=== PATIENT | female | born 1955 | race Caucasian/White ===

== ENCOUNTER 2020-12-29 09:46 | Day surgery (SDC) | payer MEDICARE, MEDICAID, SELFPAY ==
--- NOTE | 2020-12-28 11:58 | HO.ANESPROP2 ---
Documented by User: Safia Rosado 12/28/20 12:00 HPI - Anesthesia Eval Consult details Narrative: 65yo F for Colonoscopy PMFSH Active Problems Active Problems: All Active Problems (Updated 11/13/20 @ 09:36 by Adrianna Richter MD) Dyslipidemia (Acute) Foot pain, bilateral (Acute) Dizziness (Acute) History of vitamin D deficiency (Acute) HTN (hypertension) (Acute) Chronic pain (Acute) Constipation (Acute) Depression (Acute) Back pain (Acute) Asthma (Acute) Lumbar degenerative disc disease (Acute) Past Medical History Medical History Arthritis Asthma Back pain Breast cancer Chronic pain Constipation Depression Dizziness Dyslipidemia Foot pain, bilateral History of left bundle branch block (LBBB) History of pernicious anemia History of trigger finger History of vitamin D deficiency HTN (hypertension) Lumbar degenerative disc disease Mild aortic stenosis On beta mel at home Sleep apnea Tinnitus Family History Family History Father Prostate cancer Hypertension Mother Skin cancer Dementia Diabetes Daughter Lupus Maternal Grandmother Diabetes Hypertension Maternal Grandfather No problems noted. Paternal Grandmother No problems noted. Paternal Grandfather Cancer Brother Prostate cancer Surgical History Surgical History History of dilation and curettage History of lymph node dissection of left axilla History of total left knee replacement (TKR) History of total right knee replacement (TKR) Hx of bilateral cataract extraction Hx of colonoscopy Hx of esophagogastroduodenoscopy S/P lumpectomy, left breast Social History Social History Alcohol intake: current Alcohol intake frequency: does not drink Smoking Status: Never smoker Use of substances other than those prescribed or required for medical reasons: Yes Substance Use Type Other:: marijuana Advance Directives: No Advance Directives Information Provided: Yes Meds Allergies Allergy/AdvReac Type Severity Reaction Status Date / Time latex [LATEX] Allergy Intermediate RASH Verified 11/13/20 09:28 Home Medications Medication Instructions Recorded Confirmed Last Taken Type meclizine 25 mg PO DAILY PRN 08/02/20 11/13/20 Unknown History meloxicam 15 mg PO DAILY 08/02/20 11/13/20 Unknown History Exam Exam Date and Time: December 28, 2020 1158 Assessment and Plan Assessment Anesthesia Assessment: Chart Reviewed Documented by User: Patricia Hayes 12/29/20 11:20 [facility] Past Medical History Medical History Arthritis Asthma Back pain Breast cancer Chronic pain Constipation Depression Dizziness Dyslipidemia Foot pain, bilateral History of left bundle branch block (LBBB) History of pernicious anemia History of trigger finger History of vitamin D deficiency HTN (hypertension) Lumbar degenerative disc disease Mild aortic stenosis On beta mel at home Sleep apnea Tinnitus Family History Family History Father Prostate cancer Hypertension Mother Skin cancer Dementia Diabetes Daughter Lupus Maternal Grandmother Diabetes Hypertension Maternal Grandfather No problems noted. Paternal Grandmother No problems noted. Paternal Grandfather Cancer Brother Prostate cancer Surgical History Surgical History History of dilation and curettage History of lymph node dissection of left axilla History of total left knee replacement (TKR) History of total right knee replacement (TKR) Hx of bilateral cataract extraction Hx of colonoscopy Hx of esophagogastroduodenoscopy S/P lumpectomy, left breast Social History Social History Alcohol intake: current Alcohol intake frequency: does not drink Smoking Status: Never smoker Use of substances other than those prescribed or required for medical reasons: Yes Substance Use Type Other:: marijuana Advance Directives: No Advance Directives Information Provided: Yes Meds Allergies Allergy/AdvReac Type Severity Reaction Status Date / Time latex [LATEX] Allergy Intermediate RASH Verified 11/13/20 09:28 Home Medications Medication Instructions Recorded Confirmed Last Taken Type meclizine 25 mg PO DAILY PRN 08/02/20 11/13/20 Unknown History meloxicam 15 mg PO DAILY 08/02/20 11/13/20 Unknown History Exam Airway Mallampati Class: III TM Dist: >3cm Neck ROM: Full
[2020-12-29 10:10] VITALS: BP 129/79; PULSE 84; RESP 17; TEMP 36.4; O2SAT 96; BMI 39.2
[2020-12-29] MEDS: Lactated Ringers 1,000 ML 100 ML IVCONT (10:32)
--- NOTE | 2020-12-29 11:43 | W.PM.OPN ---
Operative Note Operative Note Date of Service: 12/29/20 Narrative: Pre-op diagnosis: Colon cancer screening Post-op diagnosis: other (Colon polyps, diverticulosis) Procedure: COLONOSCOPY TILL CECUM WITH SNARE POLYPECTOMY Consent: Indications for the procedure and potential complications of bleeding, perforation, reaction to medications and missed diagnosis were discussed with the patient and informed consent was obtained. Instrument: Olympus PCF H 190 L variable stiffness pediatric colonoscope Monitoring: Vital signs and clinical assessment, intermittent blood pressure monitoring, continuous EKG monitoring, Pulse oximetry and Carbon Dioxide monitoring were done throughout the procedure. Colon withdrawl time was 15 minutes. Procedure: The patient was placed in the left lateral decubitis position and pre-procedure medications were administered. After a digital rectal examination of the ano-rectum, the video colonoscope was inserted into the rectum and advanced through the colon to the cecum. The colonoscope was slowly withdrawn in a retrograde panoramic fashion and the colon mucosa was carefully examined including a retroflexed view of the rectum. Findings and interventions are described below. Procedure Difficulty: Colon was long and tortuous and there was some loop formation. LLQ pressure was applied to intubate the cecum Findings: Terminal Ileum: Not evaluated Cecum: Normal Ascending Colon: Normal Transverse Colon: Normal Descending Colon: Moderate diverticulosis Sigmoid Colon: Two 8-10 mm sessile polyps removed with a cold snare. Moderate diverticulosis Rectum: Normal Ano-rectum: Normal Colon preparation: Good Impression and Post Procedure Diagnosis: Colonoscopy Findings: Two medium sized polyps removed Moderate diverticulosis seen in the left colon Plan: Await pathology results Patient has an appointment on 01/05/21 in the GI Clinic with Elissa Hughes NP . Repeat Colonoscopy interval based on path results - in 3 years if polyps are adenomatous and 10 years if polyps are hyperplastic. Above findings were reviewed with the patient and colon polyps and diverticulosis handouts were given in the discharge area Surgeon: Nazario Sahni MD Anesthesia: MAC (Mukund Gallardo CRNA) Estimated blood loss (mL): 0 Pathology: other (A. SC polyp x 2) Disposition: PACU
--- NOTE | 2020-12-29 11:43 | MHC.SHP ---
Pre-Procedural Eval Section A The patient is an INPATIENT: No The History & Physical has been completed within 30 days and I have reviewed it.: No Section B Chief Complaint: screening Relevant Family History (Specify if Yes): No Relevant Social History: None Present Medications: see Short Stay Collaborative assessment Medical History: Significant History (breast CA; diagnosed 2012; s/p chemotherapy + XRT. Hypertension. Asthma. Depression. B-12 deficiency. vitamin D insufficency. ) History of Previous Operations: Relevant previous surgery/procedure and date(s) (left breast FNA biopsy 11/26/2012 breast lumpectomy 2012 Left breast lumpectomy plus axillary lymph node resection 06/2013 hysterectomy &C TKA left 11/28/14 Total right knee arthroplasty 09/22/2017 colonoscopy-Cade cataract-lens implants R retinal surgery R ) Allergies: Allergies Allergy/AdvReac Type Severity Reaction Status Date / Time latex [LATEX] Allergy Intermediate RASH Verified 11/13/20 09:28 Review of Systems Sugical H&P ROS: Negative: Constitution, Cardiovascular, Respiratory and Gastrointestinal Exam Surgical H&P Exam: Normal: Heart, Normal: Lungs, Normal: Extremities and Normal: Abdomen Plan Diagnosis/Plan: Unchanged I have reviewed the history and physical and performed a pertinent physical examination on my patient. No changes have occurred unless specified.
[2020-12-29 12:35] VITALS: BP 93/42; PULSE 100; RESP 16; TEMP 36.6; O2SAT 98
[2020-12-29 12:50] VITALS: BP 127/65; PULSE 83; RESP 16; TEMP 36.6; O2SAT 96
== END 2020-12-29 14:20 | disposition home or self-care (01) ==
PROVIDERS: PCP Internal Medicine; Visit Provider Internal Medicine Gastroenterology
PROC: 0DJD8ZZ Inspection of Lower Intestinal Tract, Via Natural or Artificial Opening Endoscopic (ICD-10-PCS; CPT 45378; principal; 2020-12-29 10:50)
DX: Z12.11 Encounter for screening for malignant neoplasm of colon (principal); D12.5 Benign neoplasm of sigmoid colon; K57.30 Diverticulosis of large intestine without perforation or abscess without bleeding; C50.912 Malignant neoplasm of unspecified site of left female breast; J45.909 Unspecified asthma, uncomplicated; I10 Essential (primary) hypertension; E55.9 Vitamin D deficiency, unspecified; E53.8 Deficiency of other specified B group vitamins; G47.30 Sleep apnea, unspecified; Z92.21 Personal history of antineoplastic chemotherapy; Z79.811 Long term (current) use of aromatase inhibitors; Z79.899 Other long term (current) drug therapy; Z92.3 Personal history of irradiation; Z91.040 Latex allergy status
CPT/HCPCS: 45385; 88305

== ENCOUNTER 2021-01-12 12:09 | Emergency (ER) | payer MEDICARE, MEDICAID, SELFPAY ==
--- NOTE | ~2021-01-12 | CT_ITS ---
EXAMINATION: CT ABDOMEN AND PELVIS WITH CONTRAST CLINICAL INFORMATION: Right flank pain. COMPARISON: CTA chest 01/12/2021, CT abdomen noncontrast 09/18/2008 TECHNIQUE: Multidetector volumetric images were obtained from the superior aspect of the liver through the pubic symphysis following administration 75 mL of Omnipaque 350 intravenous contrast. Sagittal and coronal reformatted images were obtained on the technologist's workstation. Oral contrast: No This CT examination was performed using dose optimization techniques as appropriate, variously including the following: *Automated exposure control *Adjustment of mA and/or kV according to patient size (this includes techniques or standardized protocols for targeted exams where dose is matched to indication/reason for exam; i.e. extremities or head) *Use of iterative reconstruction technique DLP: 738 mGy-cm FINDINGS: LUNG BASES: No infiltrate or effusion. CTA chest described in separate report. LIVER, GALLBLADDER, AND BILIARY TREE: Liver is normal in size and smooth in contour. There is borderline hepatic steatosis. No focal hepatic parenchymal lesion or intrahepatic ductal dilatation. The gallbladder is distended to 4.2 cm in diameter. There is no visible stone or dependent sludge or wall thickening. No pericholecystic fluid. The common duct is unremarkable. PANCREAS: Unremarkable. SPLEEN: Unremarkable. ADRENAL GLANDS: Unremarkable. KIDNEYS AND URETERS: The kidneys enhance symmetrically and are normal in size and smooth in contour. There is no hydronephrosis, hydroureter, perinephric stranding, or visible calculi on this postcontrast exam. There is a 2 cm cyst upper pole left kidney (9 HU). Probable punctate cyst medial left upper pole under 5 mm too small to characterize. BLADDER: Unremarkable. GASTROINTESTINAL TRACT: No bowel obstruction or inflammatory changes in the bowel or mesentery. There is no ascites or fluid collection. The appendix is not identified with certainty. There are no inflammatory changes involving the terminal ileum or around the cecum. ABDOMINAL WALL: Small fat-containing umbilical hernia under 3 cm. LYMPH NODES: There are 3 small mesenteric nodes grouped right lower quadrant inferior medial to cecum, largest only 0.6 cm short axis. There is no retroperitoneal or pelvic adenopathy. VASCULAR: Unremarkable. PELVIC VISCERA: Neutral uterus with mild retroflexion. No adnexal mass or pelvic ascites. OSSEOUS STRUCTURES: Unremarkable. CT/CT abdomen pelvis w con IMPRESSION: 1. Distended gallbladder, 4.2 cm diameter. No visible stone, wall thickening, pericholecystic fluid, or ductal dilatation. Normal pancreas. 2. No hydronephrosis, hydroureter, or perinephric stranding. 3. A few small mesenteric nodes inferior medial to cecum. Findings of doubtful significance. Mild mesenteric adenitis may have similar appearance. No bowel wall thickening or inflammatory changes or obstruction.
--- NOTE | ~2021-01-12 | CT_ITS ---
EXAMINATION: CT ANGIOGRAM OF THE CHEST WITH AND WITHOUT CONTRAST (CT PULMONARY ANGIOGRAM FOR PE) CLINICAL INFORMATION: Reason for Exam Right pleuritic chest pain rule out PE COMPARISON: Chest radiograph 02/13/2029 TECHNIQUE: Prior to contrast administration, noncontrast localization images were obtained. Subsequently, multidetector volumetric imaging was performed from the thoracic inlet to below the diaphragms following the administration of 75 mL Omnipaque 350 intravenous contrast. Sagittal, coronal, and MIP oblique sagittal reformatted images were obtained on the CT workstation, uploaded to PACS, and reviewed. This CT examination was performed using dose optimization techniques as appropriate, variously including the following: *Automated exposure control *Adjustment of mA and/or kV according to patient size (this includes techniques or standardized protocols for targeted exams where dose is matched to indication/reason for exam; i.e. extremities or head) *Use of iterative reconstruction technique Total exam dose-length product 350 mGy-cm FINDINGS: QUALITY OF STUDY/CONTRAST BOLUS: Satisfactory. PULMONARY ARTERIES: No central or segmental pulmonary emboli. THORACIC AORTA: No aneurysm or dissection. LUNG: There is subsegmental disc atelectasis right anterior medial middle lobe. No lobar segmental airspace consolidation. No groundglass opacities. No pneumothorax. PLEURA: No pleural thickening or effusion. MEDIASTINUM: Normal heart size. No pericardial effusion. No hilar or mediastinal lymphadenopathy. No evidence of septal bowing or right heart strain. CHEST WALL/AXILLA: No axillary or internal mammary lymphadenopathy. OSSEOUS STRUCTURES: No acute or suspicious osseous abnormality. UPPER ABDOMEN: Cyst 2 cm upper pole left kidney, 13 HU. No reflux of contrast into the hepatic veins to suggest elevated right heart pressures. CT/CT angio chest PE protocol IMPRESSION: 1. No pulmonary embolism. No thoracic aortic dissection. 2. Subsegmental disc atelectasis right anterior medial middle lobe. 3. No pneumothorax or airspace consolidation. VTE: negative
[2021-01-12 12:15] VITALS: BP 129/55; PULSE 78; RESP 21; TEMP 37.2; O2SAT 97; BMI 39.2
[2021-01-12 12:25] VITALS: BP 144/61; PULSE 76; RESP 15; TEMP 36.9; O2SAT 96
[2021-01-12 12:50] LABS: MANUAL DIFF FLAG NO
[2021-01-12 12:55] LABS: Basophils Percent Auto 0.7 % (0-2); Eosinophils Absolute Auto 0.1 X10*3/uL (0.0-0.4); Eosinophils Percent Auto 2.3 % (0-4); Hematocrit 40.3 % (37-47); Hemoglobin 12.5 g/dl (12.0-16.0); Imm Gran Abs Auto 0.01 X10*3/uL (0.00-0.03); Imm Gran Pct Auto 0.2 % (0.0-0.4); Lymphocytes Absolute Auto 1.8 X10*3/uL (1.2-4.9); Lymphocytes Percent Auto 29.3 % (20-40); Mean Corpuscular Hemoglobin 25.8 pg (27.0-33.0); Mean Corpuscular Volume 83.3 fL (80-98); Mean Platelet Volume 9.3 fL (9.4-12.3); Monocytes Absolute Auto 0.4 X10*3/uL (0.1-1.2); Neutrophils Absolute Auto 3.6 X10*3/uL (2.0-8.3); Neutrophils Percent Auto 60.5 % (45-73); Platelet Count 243 X10*3/uL (160-400); Red Blood Count 4.84 X10*6/uL (4.20-5.50); Red Cell Distribution Width 14.3 % (11.0-16.0)
[2021-01-12 13:11] LABS: Prothrombin Time 11.7 SEC (10.8-13.0)
[2021-01-12 13:14] LABS: Partial Thromboplastin Time 35.2 SEC (24.1-38.0)
[2021-01-12 13:15] LABS: D Dimer < 200 NG/ML
[2021-01-12] MEDS: Ketorolac Tromethamine 30 MG/ML VIAL IVPUSH (13:42)
[2021-01-12 14:14] LABS: Alanine Aminotransferase 16 U/L (0-31); Albumin Level 3.8 g/dL (3.5-5.0); Alkaline Phosphatase 78 U/L (39-117); Anion Gap 16 (12-20); Aspartate Amino Transferase 19 U/L (5-31); Bilirubin Total 0.6 mg/dL (0.0-1.0); Blood Urea Nitrogen 15 mg/dL (9-16); Calcium 8.9 mg/dL (8.4-10.2); Carbon Dioxide 23 mmol/L (22-29); Chloride 106 mmol/L (96-108); Estimated Glomerular Filt Rate > 60; Glucose Random 83 mg/dL (60-115); Lipase 24 U/L (8-78); Potassium 4.1 mmol/L (3.3-5.1); Sodium 141 mmol/L (135-145); Total Protein 6.4 g/dL (6.5-8.0)
[2021-01-12 14:46] VITALS: BP 118/53; PULSE 74; RESP 18; TEMP 37.1; O2SAT 97
[2021-01-12 15:11] LABS: Glucose Urine UA NEG (NEG); Leukocyte Esterase Urine NEG (NEG); Nitrite Urine NEG (NEG); PH 7.5 (5.0-8.0); Specific Gravity - Urine 1.015 (1.005-1.025); Urine Blood NEG (NEG); Urine Ketones NEG (NEG); Urine Protein NEG (NEG-TRACE)
[2021-01-12 15:12] LABS: Appearance Urine HAZY; Color Urine YELLOW
[2021-01-12] MEDS: iohexoL 350 MG/ML 75 ML INFUS..BTL IV (15:25)
[2021-01-12 15:58] VITALS: PULSE 70; RESP 16; TEMP 37.1; O2SAT 96
--- NOTE | 2021-01-12 17:10 | ED.GENADULT ---
HPI - General Adult General Chief complaint: Abdominal Pain Stated complaint: flank pain Time Seen by Provider: 01/12/21 12:25 Source: patient Mode of arrival: EMS Limitations: no limitations History of Present Illness HPI narrative: 65-year-old female who presents emergency department for evaluation of right flank pain. She states the pain came on gradually, approximately 10 days prior. She states the pain is got progressively worse. She points to her right flank area when asked to localize the pain. She describes the pain as a constant, pressure pain which is worse with movement, coughing and breathing. The pain has gotten significantly worse over the past 2 days. She states the pain is 20/10 therefore she called an ambulance and was brought to the emergency department. She denied fever, chills, cough, frequency, urgency or dysuria. She states she is feeling short of breath and does have dyspnea on exertion and she attributes this to the pain. She states that she has never had this type of pain before in the past. Related Data Home Medications Medication Instructions Recorded Confirmed meclizine 25 mg PO DAILY PRN 08/02/20 11/13/20 meloxicam 15 mg PO DAILY 08/02/20 11/13/20 Previous Rx's Medication Instructions Recorded albuterol sulfate 90 mcg/actuation 2 puff INHALATION Q4-6H PRN 30 10/18/20 aerosol inhaler Days #6.7 g metoprolol succinate 25 mg 25 mg PO DAILY 90 Days #90 tab 10/18/20 tablet,extended release 24 hr miscellaneous medical supply #1 ea 11/08/20 miscellaneous medical supply #1 ea 11/08/20 miscellaneous medical supply 1 ea MISCELLANEOUS .COMPLEX #1 11/08/20 miscellaneous medical supply 1 ea MISCELLANEOUS .COMPLEX #1 ea 11/08/20 miscellaneous medical supply 1 ea MISCELLANEOUS .COMPLEX #1 ea 11/08/20 walker #1 ea 11/08/20 atorvastatin 20 mg tablet 20 mg PO DAILY 90 Days #90 tab 11/13/20 calcium carbonate 600 mg calcium 600 mg PO BID 90 Days #180 tab 11/13/20 (1,500 mg) tablet cholecalciferol (vitamin D3) 50 50 mcg PO DAILY #30 tab 11/13/20 mcg (2,000 unit) tablet cyanocobalamin (vitamin B-12) 1,000 mcg PO DAILY #90 tab 11/13/20 1,000 mcg tablet fluoxetine 40 mg capsule 40 mg PO DAILY #90 cap 11/13/20 furosemide 20 mg tablet 20 mg PO DAILY 90 Days #90 tab 11/13/20 albuterol sulfate 2.5 mg INHALATION Q4-6H PRN 30 11/23/20 Days #75 ml albuterol sulfate 2.5 mg INHALATION Q4-6H PRN 30 11/27/20 Days #90 ml albuterol sulfate 90 mcg/actuation 2 inh INHALATION Q4-6H PRN 30 Days 11/27/20 breath activated powder #1 ea inhaler,sensor oxycodone-acetaminophen 7.5 mg-325 1 tab PO Q6H PRN 30 Days #120 tab 01/10/21 mg tablet morphine 15 mg PO Q4-6H PRN #10 tab 01/12/21 ondansetron 4 mg PO Q6-8H PRN #14 tab 01/12/21 Allergies Allergy/AdvReac Type Severity Reaction Status Date / Time latex [LATEX] Allergy Intermediate RASH Verified 11/13/20 09:28 Review of Systems Review of Systems: Yes all other systems are reviewed and are negative [facility] Past Medical History Medical History Arthritis Asthma Back pain Breast cancer Chronic pain Constipation Depression Dizziness Dyslipidemia Foot pain, bilateral History of left bundle branch block (LBBB) History of pernicious anemia History of trigger finger History of vitamin D deficiency HTN (hypertension) Lumbar degenerative disc disease Mild aortic stenosis On beta mel at home Sleep apnea Tinnitus Surgical History History of dilation and curettage History of lymph node dissection of left axilla History of total left knee replacement (TKR) History of total right knee replacement (TKR) Hx of bilateral cataract extraction Hx of colonoscopy Hx of esophagogastroduodenoscopy S/P lumpectomy, left breast Family History Family History Father Prostate cancer Hypertension Mother Skin cancer Dementia Diabetes Daughter Lupus Maternal Grandmother Diabetes Hypertension Maternal Grandfather No problems noted. Paternal Grandmother No problems noted. Paternal Grandfather Cancer Brother Prostate cancer Social History Social History Alcohol intake: never Smoking Status: Never smoker Use of substances other than those prescribed or required for medical reasons: Yes Substance Use Type: Marijuana Substance Use Frequency: Occasionally Advance Directives: Yes Advance Directives Information Provided: No Advance Directives on File: No Physical Exam Vital Signs: Vital Signs: Last Vital Signs Temp 98.8 F 01/12/21 15:58 Pulse 70 01/12/21 15:58 Resp 16 01/12/21 15:58 BP 118/53 L 01/12/21 14:46 Pulse Ox 96 01/12/21 15:58 Body Mass Index 39.2 Const: General: cooperative and in distress moderate (Secondary to right flank pain) Nutritional Appearance: overweight Orientation/consciousness: oriented to person and oriented to place Limitations: no limitations HENMT: Head: Yes normal to inspection, Yes normocephalic and Yes atraumatic Ears: external ears normal General nose exam: Normal external nose present Face and sinus: Yes normal facial exam Mouth: Normal oral and palatal mucosa present Throat: Yes posterior oropharynx normal Eyes: Periorbital: periorbital findings normal Eyelids: Yes eyelids normal Conjunctivae: conjunctivae normal Sclerae: sclerae normal Corneas: corneas normal Pupils: Equal, round and reactive pupils present Direct Ophthalmoscopy: normal light reflex Neck: Neck: Yes full ROM, Yes no lymphadenopathy, Yes no meningeal signs, Yes trachea midline and Yes supple Chest: Chest palpation & inspection: normal inspection of the chest and normal palpation of entire chest wall Resp: Effort & Inspection: normal respiratory effort and able to speak in complete sentences Auscultation: clear to auscultation bilaterally Cardio: Rate: regular rate Rhythm: regular rhythm Heart sounds: S1 normal heart sound present, S2 normal heart sound present and no murmurs GI: Inspection: Yes normal to inspection Palpation (GI): Soft to palpation, Tenderness to palpation present (GI) in the RLQ (Moderate), no guarding, not rigid and No hepatosplenomegaly present : Other: Moderate right CVA tenderness, no rash or lesions noted in the area of tenderness Back/Spine/Pelvis: Cervical Spine: normal cervical lordosis Thoracic/Lumbar Spine: thoracic and lumbar spine normal to inspection Skin: Lesions: no lesions Rashes: no rashes Wounds: no wounds Neuro: General: oriented to person, oriented to place and no meningeal signs Cranial nerves: Yes CN's II-XII intact bilaterally and Yes Equal, round and reactive pupils present Cognition (Neuro): normal cognition Motor exam (neuro): 5/5 motor strength present throughout Extrem: General: Yes normal to inspection and Yes full ROM Psych: Appearance: well kempt Mental Status: mental status grossly normal Speech and movement: Normal speech and movement present Affect: normal affect Attitude: cooperative Thought process: Normal thought process present Thought content: Normal thought content present Course Course Course Narrative: 65-year-old female who presents emergency department for evaluation of 10 days of right sided flank and lower abdominal pain which got worse 2 days prior to evaluation with the pain becoming greater than 10/10. On presentation the patient did appear to be in distress secondary to her pain. The pain is worse with breathing, coughing and movement. She did have right lower quadrant tenderness as well as right-sided CVA tenderness. The differential included but was not limited to right renal colic, pneumonia, PE. I did order laboratory evaluation on the patient and a CT angiogram pulmonary embolism protocol and CT abdomen pelvis with IV contrast. Patient's pain was treated with Toradol 30 mg IV. 1717: Patient's laboratory evaluation revealed a normal CBC. Coag studies were normal including and non elevated D-dimer. CT scan of the chest revealed no large pulmonary embolism or cause for the patient's pain. The CT scan of the abdomen pelvis did reveal distended gallbladder and cecal adenopathy but no clear cause for the patient's pain. The patient did get improvement with the IV Toradol however her pain did come back and she was given morphine 4 mg IV with good effect. At this time I do not have a clear etiology for the patient's pain but I did discuss the possibility of shingles with the patient. The patient was discharged home and advised to take Tylenol and ibuprofen for pain. For pain not controlled by his medications she was given a prescription for morphine. She was also given prescription for Zofran for nausea and vomiting. Mass PAT review revealed 10 prescriptions over a 2 year interval for oxycodone from 2 different providers. Medical Decision Making Lab Data Result diagrams: 01/12/21 12:44 01/12/21 13:46 Labs: Lab Results 01/12/21 01/12/21 01/12/21 Range/Units 10:10 12:43 12:44 WBC 6.0 (4.8-10.8) X10*3/uL RBC 4.84 (4.20-5.50) X10*6/uL Hgb 12.5 (12.0-16.0) g/dl Hct 40.3 (37-47) % MCV 83.3 (80-98) fL MCH 25.8 L (27.0-33.0) pg MCHC 31.0 (31.0-35.0) g/dl RDW 14.3 (11.0-16.0) % Plt Count 243 (160-400) X10*3/uL MPV 9.3 L (9.4-12.3) fL Immature Gran % (Auto) 0.2 (0.0-0.4) % Neut % (Auto) 60.5 (45-73) % Lymph % (Auto) 29.3 (20-40) % [place] % (Auto) 7.0 (2-11) % Eos % (Auto) 2.3 (0-4) % Baso % (Auto) 0.7 (0-2) % Lymph # (Auto) 1.8 (1.2-4.9) X10*3/uL [place] # (Auto) 0.4 (0.1-1.2) X10*3/uL Eos # (Auto) 0.1 (0.0-0.4) X10*3/uL Baso # (Auto) 0.0 (0.0-0.2) X10*3/uL Abs Immat Gran (auto) 0.01 (0.00-0.03) X10*3/uL Absolute Neuts (auto) 3.6 (2.0-8.3) X10*3/uL Absolute Nucleated RBC 0.000 (0.0-0.012) X10*3/uL Nucleated RBC % (auto) 0.0 (0.0-0.2) /100WBC PT 11.7 (10.8-13.0) SEC INR 1.0 (0.9-1.1) APTT 35.2 (24.1-38.0) SEC D-Dimer < 200 NG/ML Sodium (135-145) mmol/L Potassium (3.3-5.1) mmol/L Chloride (96-108) mmol/L Carbon Dioxide (22-29) mmol/L Anion Gap (12-20) BUN (9-16) mg/dL Creatinine (0.5-1.4) mg/dL Estim Creat Clear Calc Estimated GFR Random Glucose (60-115) mg/dL Calcium (8.4-10.2) mg/dL Total Bilirubin (0.0-1.0) mg/dL AST (5-31) U/L ALT (0-31) U/L Alkaline Phosphatase (39-117) U/L Troponin I High Sens (<3.5-17.0) ng/L Total Protein (6.5-8.0) g/dL Albumin (3.5-5.0) g/dL Lipase (8-78) U/L Urine Color Urine Appearance Urine pH (5.0-8.0) Ur Specific [place] (1.005-1.025) Urine Protein (NEG-TRACE) MG/DL Urine Glucose (UA) (NEG) MG/DL Urine Ketones (NEG) MG/DL Urine Blood (NEG) Urine Nitrite (NEG) Ur Leukocyte Esterase (NEG) H. pylori Breath Test Cancelled 01/12/21 01/12/21 01/12/21 Range/Units 12:44 13:46 15:02 WBC (4.8-10.8) X10*3/uL RBC (4.20-5.50) X10*6/uL Hgb (12.0-16.0) g/dl Hct (37-47) % MCV (80-98) fL MCH (27.0-33.0) pg MCHC (31.0-35.0) g/dl RDW (11.0-16.0) % Plt Count (160-400) X10*3/uL MPV (9.4-12.3) fL Immature Gran % (Auto) (0.0-0.4) % Neut % (Auto) (45-73) % Lymph % (Auto) (20-40) % [place] % (Auto) (2-11) % Eos % (Auto) (0-4) % Baso % (Auto) (0-2) % Lymph # (Auto) (1.2-4.9) X10*3/uL [place] # (Auto) (0.1-1.2) X10*3/uL Eos # (Auto) (0.0-0.4) X10*3/uL Baso # (Auto) (0.0-0.2) X10*3/uL Abs Immat Gran (auto) (0.00-0.03) X10*3/uL Absolute Neuts (auto) (2.0-8.3) X10*3/uL Absolute Nucleated RBC (0.0-0.012) X10*3/uL Nucleated RBC % (auto) (0.0-0.2) /100WBC PT (10.8-13.0) SEC INR (0.9-1.1) APTT (24.1-38.0) SEC D-Dimer NG/ML Sodium 141 (135-145) mmol/L Potassium 4.1 (3.3-5.1) mmol/L Chloride 106 (96-108) mmol/L Carbon Dioxide 23 (22-29) mmol/L Anion Gap 16 (12-20) BUN 15 (9-16) mg/dL Creatinine 0.65 (0.5-1.4) mg/dL Estim Creat Clear Calc 81.0 Estimated GFR > 60 Random Glucose 83 (60-115) mg/dL Calcium 8.9 (8.4-10.2) mg/dL Total Bilirubin 0.6 (0.0-1.0) mg/dL AST 19 (5-31) U/L ALT 16 (0-31) U/L Alkaline Phosphatase 78 (39-117) U/L Troponin I High Sens 4.0 (<3.5-17.0) ng/L Total Protein 6.4 L (6.5-8.0) g/dL Albumin 3.8 (3.5-5.0) g/dL Lipase 24 (8-78) U/L Urine Color YELLOW Urine Appearance HAZY Urine pH 7.5 (5.0-8.0) Ur Specific [place] 1.015 (1.005-1.025) Urine Protein NEG (NEG-TRACE) MG/DL Urine Glucose (UA) NEG (NEG) MG/DL Urine Ketones NEG (NEG) MG/DL Urine Blood NEG (NEG) Urine Nitrite NEG (NEG) Ur Leukocyte Esterase NEG (NEG) H. pylori Breath Test Discharge Plan Discharge Clinical Impression: Abdominal pain Qualifiers: Abdominal location: right lower quadrant Qualified Code(s): R10.31 - Right lower quadrant pain Chest pain Qualifiers: Chest pain type: chest pain on breathing Qualified Code(s): R07.1 - Chest pain on breathing Patient Disposition: Home, Self-Care Instructions: Abdominal Pain (ED) Additional Instructions: Your laboratory evaluation and urinalysis were unremarkable. The CT scan of your chest did not reveal an obvious cause for your pain. The CT scan of your abdomen and pelvis did not reveal an obvious cause for your pain. At this time, I do not have a clear cause for your pain, if you developed a rash in the area of the pain then you should be seen by your doctor or return to the emergency department for evaluation for possible shingles. Take ibuprofen 200 mg pills, 3 pills every 6 hours as needed for pain. Take Tylenol (acetaminophen) 500 mg pills, 2 pills every 4 to 6 hours as needed for pain. For pain not relieved by ibuprofen and Tylenol take morphine 15 mg pills, 1 pill every 4-6 hours as needed. This is a narcotic medication and can be addicting. If your concerned about addiction do not get this medication filled or ask the pharmacist for less pills. Take Zofran/ondansetron ODT (oral dissolvable tablet) 4 mg, 1 pill dissolved in your mouth every 6-8 hours as needed for nausea and vomiting. Follow-up with your doctor in 2 days. Please return to the emergency department if your symptoms get worse or if you develop any symptoms that are concerning to you. Prescriptions: New morphine 15 mg tablet 15 mg PO Q4-6H PRN (Reason: pain) Qty: 10 RF: 0 ondansetron 4 mg tablet,disintegrating 4 mg PO Q6-8H PRN (Reason: nausea and vomiting) Qty: 14 RF: 0 No Action albuterol sulfate 90 mcg/actuation HFA aerosol inhaler 2 puff inhalation Q4-6H PRN (Reason: shortness of breath or wheezing) 30 Days Qty: 6.7 RF: 6 metoprolol succinate 25 mg tablet extended release 24 hr 25 mg PO DAILY 90 Days Qty: 90 RF: 3 miscellaneous medical supply Misc 1 ea miscellaneous .COMPLEX Qty: 1 RF: 0 miscellaneous medical supply Misc 1 ea miscellaneous .COMPLEX Qty: 1 RF: 0 (DME) miscellaneous medical supply Misc See Rx Instructions .ROUTE .MEDSUPPLY Qty: 1 RF: 0 miscellaneous medical supply Misc 1 ea miscellaneous .COMPLEX Qty: 1 RF: 0 (DME) miscellaneous medical supply Misc See Rx Instructions .ROUTE .MEDSUPPLY Qty: 1 RF: 0 (DME) Ultra-Light Rollator Misc See Rx Instructions .ROUTE .MEDSUPPLY Qty: 1 RF: 0 albuterol sulfate 2.5 mg /3 mL (0.083 %) solution for nebulization 2.5 mg inhalation Q4-6H PRN (Reason: shortness of breath or wheezing) 30 Days Qty: 75 RF: 6 Proair Digihaler 90 mcg/actuation aero powdr breath act w/sensor 2 inh inhalation Q4-6H PRN (Reason: shortness of breath or wheezing) 30 Days Qty: 1 RF: 6 albuterol sulfate 2.5 mg /3 mL (0.083 %) solution for nebulization 2.5 mg inhalation Q4-6H PRN (Reason: shortness of breath or wheezing) 30 Days Qty: 90 RF: 6 oxycodone-acetaminophen 7.5-325 mg tablet 1 tab PO Q6H PRN (Reason: pain) 30 Days Qty: 120 RF: 0 meloxicam 15 mg Tablet 15 mg PO DAILY RF: 0 meclizine 25 mg Tablet 25 mg PO DAILY PRN (Reason: Dizziness) RF: 0 calcium carbonate [Calcium 600] 600 mg calcium (1,500 mg) tablet 600 mg PO BID 90 Days Qty: 180 RF: 3 atorvastatin 20 mg tablet 20 mg PO DAILY 90 Days Qty: 90 RF: 3 cholecalciferol (vitamin D3) [Vitamin D3] 50 mcg (2,000 unit) tablet 50 mcg PO DAILY Qty: 30 RF: 5 cyanocobalamin (vitamin B-12) [Vitamin B-12] 1,000 mcg tablet 1,000 mcg PO DAILY Qty: 90 RF: 1 fluoxetine 40 mg capsule 40 mg PO DAILY Qty: 90 RF: 1 furosemide 20 mg tablet 20 mg PO DAILY 90 Days Qty: 90 RF: 3
[2021-01-12 17:39] VITALS: RESP 18
[2021-01-12] MEDS: Morphine Sulfate 4 MG/ML CARTRIDGE IVPUSH (17:39)
--- NOTE | 2021-01-14 | ECG_ITS ---
Test Reason : ABDOMINAL PAIN Blood Pressure : / mmHG Vent. Rate : 073 BPM Atrial Rate : 073 BPM P-R Int : 162 ms QRS Dur : 140 ms QT Int : 406 ms P-R-T Axes : 064 013 149 degrees QTc Int : 447 ms Normal sinus rhythm Left bundle branch block Abnormal ECG No significant changes when compared with the previous EKG of 13 february 2019 Referred By: Oleg Beck Electronically Signed By:CHAI PACHECO
== END 2021-01-12 17:42 | disposition home or self-care (01) ==
PROVIDERS: Emergency Provider Emergency Medicine Emergency Medical Services; PCP Internal Medicine
DX: R10.31 Right lower quadrant pain (principal); R07.1 Chest pain on breathing; R59.0 Localized enlarged lymph nodes; K82.8 Other specified diseases of gallbladder; I10 Essential (primary) hypertension; J45.909 Unspecified asthma, uncomplicated; F12.90 Cannabis use, unspecified, uncomplicated; Z85.3 Personal history of malignant neoplasm of breast; Z79.899 Other long term (current) drug therapy
CPT/HCPCS: 36415; 71275; 74177; 80053; 81003; 83690; 84484; 85025; 85379; 85610; 85730; 93005; 96374; 96375; 99284; 99285; J1885; J2270; Q9967

== ENCOUNTER 2021-02-10 10:15 | Emergency (ER) | payer MEDICARE, MEDICAID, SELFPAY ==
--- NOTE | ~2021-02-10 | CT_ITS ---
EXAMINATION: CT ABDOMEN AND PELVIS WITH CONTRAST CLINICAL INFORMATION: Right flank pain COMPARISON: CT dated 01/12/2021 TECHNIQUE: Multidetector volumetric images were obtained from the superior aspect of the liver through the pubic symphysis following administration 85 mL of Omnipaque 350 intravenous contrast. Sagittal and coronal reformatted images were obtained on the technologist's workstation. Oral contrast: No This CT examination was performed using dose optimization techniques as appropriate, variously including the following: *Automated exposure control *Adjustment of mA and/or kV according to patient size (this includes techniques or standardized protocols for targeted exams where dose is matched to indication/reason for exam; i.e. extremities or head) *Use of iterative reconstruction technique DLP: 725 mGy-cm FINDINGS: LUNG BASES: The visualized lung bases are unremarkable. LIVER, GALLBLADDER, AND BILIARY TREE: The liver is normal in size, shape, and attenuation. No focal hepatic lesion or biliary ductal dilatation is present. Gallbladder unremarkable. PANCREAS: Unremarkable. SPLEEN: Unremarkable. ADRENAL GLANDS: Unremarkable. KIDNEYS AND URETERS: The kidneys are normal in size, shape, and attenuation. No hydronephrosis, hydroureter, or calculi seen. Stable 2.0 cm cyst in the upper pole of left kidney. No perinephric stranding. BLADDER: Unremarkable. GASTROINTESTINAL TRACT: The small and large bowel are unremarkable. Duodenal diverticulum emanating from the junction of the second and third portions. The appendix is unremarkable. ABDOMINAL WALL: Small fat-containing umbilical hernia. LYMPH NODES: Normal. VASCULAR: Unremarkable. PELVIC VISCERA: Unremarkable. OSSEOUS STRUCTURES: Unremarkable. CT/CT abdomen pelvis w con IMPRESSION: No acute findings within the abdomen or pelvis to explain the patient's symptomatology.
[2021-02-10 10:29] VITALS: BP 151/72; PULSE 69; PULSE 88; RESP 18; TEMP 36.8; O2SAT 95; BMI 18.7
[2021-02-10] MEDS: diazePAM 5 MG TABLET PO (10:53)
[2021-02-10] MEDS: Lidocaine 4 % Patch ADH..PATCH 1 PATCH TRANSDERMA (10:54)
--- NOTE | 2021-02-10 10:59 | ED.BACK ---
HPI - Back Pain/Injury General Chief Complaint: Back Pain/Injury Stated Complaint: R LOW BACK PAIN,NO INJURY PER EMS Time Seen by Provider: 02/10/21 10:30 Source: EMS Mode of arrival: EMS Limitations: no limitations History of Present Illness HPI Narrative: Mrs. Murray is a 65-year-old female who speaks full Pashto she has past medical history as noted below she presents via EMS from home c c/o continued right lower back pain. The pain approximately started 4 weeks ago since she has been seen in emergency room according to the EMR she has a visit on 01/13/2020 where she had lab work including CTA of the chest/ abdominal pelvis CT scan with IV contrast that did not demonstrate any acute cause of her pain she was subsequently given pain management did okay with this she had a breakthrough pain so she went to the walk-in clinic and drippy was given per taper dose of prednisone which helped a little bit she subsequently had another episode for which she went to [facility] couple days ago states that she was in the waiting room for a long time they did not do much of anything for her and today she continues to have the right lower back pain. She describes the back pain as ache and pain like in the right-sided lower back worsen with movement and palpation improved with immobilization. Sometimes does radiate down to the right posterior thigh region. She denies any lower extremity pain or swelling. No loss of bowel or bladder control. She denies any chest pain, abdominal pain, nausea, vomiting, diarrhea, symptoms. She denies any rash. States she does her usual ADLs but does not recall any specific activity which she over exerted or did any lifting. MD elicited complaint: back pain Pertinent past history: prior back pain Onset (ago): week(s) Timing: intermittent Severity: moderate Similar Symptoms Previously: Yes Quality: aching Location: right lower back Exacerbating factors: movement Relieving factors: immobilization Associated symptoms: denies other symptoms Treatments prior to arrival: prescription analgesics Work related injury: No Related Data Home Medications Medication Instructions Recorded Confirmed meclizine 25 mg PO DAILY PRN 08/02/20 01/19/21 meloxicam 15 mg PO DAILY 08/02/20 01/19/21 ondansetron 4 mg disintegrating mg PO 01/19/21 01/19/21 tablet Previous Rx's Medication Instructions Recorded albuterol sulfate 90 mcg/actuation 2 puff INHALATION Q4-6H PRN 30 10/18/20 aerosol inhaler Days #6.7 g metoprolol succinate 25 mg 25 mg PO DAILY 90 Days #90 tab 10/18/20 tablet,extended release 24 hr miscellaneous medical supply #1 ea 11/08/20 miscellaneous medical supply #1 ea 11/08/20 miscellaneous medical supply 1 ea MISCELLANEOUS .COMPLEX #1 ea 11/08/20 miscellaneous medical supply 1 ea MISCELLANEOUS .COMPLEX #1 ea 11/08/20 miscellaneous medical supply 1 ea MISCELLANEOUS .COMPLEX #1 ea 11/08/20 walker #1 ea 11/08/20 atorvastatin 20 mg tablet 20 mg PO DAILY 90 Days #90 tab 11/13/20 calcium carbonate 600 mg calcium 600 mg PO BID 90 Days #180 tab 11/13/20 (1,500 mg) tablet cholecalciferol (vitamin D3) 50 50 mcg PO DAILY #30 tab 11/13/20 mcg (2,000 unit) tablet cyanocobalamin (vitamin B-12) 1,000 mcg PO DAILY #90 tab 11/13/20 1,000 mcg tablet fluoxetine 40 mg capsule 40 mg PO DAILY #90 cap 11/13/20 furosemide 20 mg tablet 20 mg PO DAILY 90 Days #90 tab 11/13/20 albuterol sulfate 2.5 mg INHALATION Q4-6H PRN 30 11/23/20 Days #75 ml albuterol sulfate 2.5 mg INHALATION Q4-6H PRN 30 11/27/20 Days #90 ml albuterol sulfate 90 mcg/actuation 2 inh INHALATION Q4-6H PRN 30 Days 11/27/20 breath activated powder #1 ea inhaler,sensor oxycodone-acetaminophen 7.5 mg-325 1 tab PO Q6H PRN 30 Days #120 tab 01/10/21 mg tablet morphine 15 mg PO Q4-6H PRN #10 tab 01/12/21 prednisone 20 mg tablet 20 mg PO .COMPLEX #18 tab 02/05/21 baclofen 10 mg tablet 10 mg PO BEDTIME 7 Days #7 tab 02/09/21 diazepam [Valium] 5 mg PO BID PRN #10 tab 02/10/21 lidocaine 1 patch TOPICAL Q24H PRN #15 ea 02/10/21 Allergies Allergy/AdvReac Type Severity Reaction Status Date / Time latex [LATEX] Allergy Intermediate RASH Verified 01/19/21 08:22 Review of Systems Review of Systems: Constitutional: No Weight loss, No Fever, No Chills, No Night Sweats, No Fatigue, No Malaise ENT/Mouth: No Hearing loss, No Ear Pain, No Nasal Congestion, No Sinus Pain, No Hoarseness, No sore throat, No Rhinorrhea, No Swallowing Difficulty Eyes: No Eye Pain, No Swelling, No Redness, No Foreign Body, No Discharge, No Vision Changes Cardiovascular: No Chest Pain, No SOB, No Dyspnea on Exertion, No Orthopnea, No Edema, No Palpitations Respiratory: No Cough, No Sputum, No Wheezing, No Smoke Exposure, No Dyspnea Gastrointestinal: No Nausea, No Vomiting, No Diarrhea, No Constipation, No abdominal Pain, No Hematochezia, No Melena Genitourinary: No Dysuria, No Urinary Frequency, No Hematuria, No Urinary Incontinence, No Urgency, No Flank Pain, No Urinary Flow Changes, No Hesitancy Musculoskeletal: No joint pain, No Myalgias, No Joint Swelling, as noted per HPI Skin: No Skin Lesions, No rash Neuro: No Weakness, No Numbness, No Paresthesias, No Loss of Consciousness, No Dizziness, No Headache Psych: No Social Issues Heme/Lymph: No Bruising, No Bleeding,No Lymphadenopathy Endocrine: No Polyuria, No Polydipsia, No Temperature Intolerance Yes all other systems are reviewed and are negative [facility] Past Medical History Medical History Arthritis Asthma Back pain Breast cancer Chronic pain Constipation Depression Dizziness Dyslipidemia Foot pain, bilateral History of left bundle branch block (LBBB) History of pernicious anemia History of trigger finger History of vitamin D deficiency HTN (hypertension) Lumbar degenerative disc disease Mild aortic stenosis On beta mel at home Sleep apnea Tinnitus Surgical History History of dilation and curettage History of lymph node dissection of left axilla History of total left knee replacement (TKR) History of total right knee replacement (TKR) Hx of bilateral cataract extraction Hx of colonoscopy Hx of esophagogastroduodenoscopy S/P lumpectomy, left breast Family History Family History Father Prostate cancer Hypertension Mother Skin cancer Dementia Diabetes Daughter Lupus Maternal Grandmother Diabetes Hypertension Maternal Grandfather No problems noted. Paternal Grandmother No problems noted. Paternal Grandfather Cancer Brother Prostate cancer Social History Social History Alcohol intake: never Smoking Status: Never smoker Smoked in Last 30 Days: No Use of substances other than those prescribed or required for medical reasons: No Substance Use Type: Marijuana Advance Directives: No Advance Directives Information Provided: No Physical Exam Vital Signs: Vital Signs: Last Vital Signs Temp 98.3 F 02/10/21 10:29 Pulse 69 02/10/21 14:21 Resp 16 02/10/21 14:21 BP 153/82 H 02/10/21 14:21 Pulse Ox 95 02/10/21 10:29 Body Mass Index 18.7 Reviewed Const: Other: Tearful in grimacing General: anxious; No acute distress Nutritional Appearance: average body habitus Orientation/consciousness: patient oriented x3 HENMT: Head: Yes normal to inspection Ears: hearing grossly normal bilaterally Eyes: General: appearance normal, both eyes and all related structures Visual Sierra: normal visual sierra by confrontation Neck: Neck: Yes normal visual inspection, No positive Brudzinski's sign, No positive Kernig's sign and No tender Thyroid: Thyroid normal Chest: Chest palpation & inspection: normal inspection of the chest Resp: Effort & Inspection: normal respiratory effort Auscultation: clear to auscultation bilaterally Cardio: Jugular venous distension: no JVD Rhythm: regular rhythm Heart sounds: S1 normal heart sound present and S2 normal heart sound present GI: Inspection: Yes normal to inspection Palpation (GI): Firmness to palpation present (GI) Percussion: Yes normal to percussion Auscultation: normal bowel sounds Back/Spine/Pelvis: Other: Grimaces and more painful when she sits up and tries to do rotation in the right lower back. No midline pain. Pain over the lumbar paraspinous muscle process. No CVA tenderness palpation. No rash. Pain improved with immobilization positive right leg lift at 35 degrees. Distally neurovascular intact, no edema. Negative Homans. Skin: General skin exam: no rashes or lesions noted Neuro: General: patient oriented x3 Extrem: General: Yes normal to inspection Course Reevaluation(s) Reevaluation #1: Labs without evidence of leukocytosis, electrolytes including magnesium and CPK within normal limits. UA is pending. She felt marginally better after 50 mg of IV Toradol, lidocaine patch and Valium however she states she continues to have the pain. CT of the abdomen pelvis with IV contrast reviewed from 1 month ago nonspecific findings given the continued pain and multiple ED visits will go ahead and repeat the CT scan to assess for acute infectious pathology though my suspicions are low. Risk versus benefits of radiation versus wait and see and follow up reviewed with her. Reevaluation #2: She has been resting comfortably, currently lying in the lateral recumbent position sleeping, at bedside. He is to arouse of abdominal pelvis CT findings reviewed without any acute findings. She reports she does feel better. I will give her short course of Valium for muscle spasm and topical lidocaine she will continue with NSAIDs. Will try lifestyle modifications and home care. Will follow up with primary care doctor and PT. MDM - Back Pain/Injury Medical Records Attestation: I reviewed the patient's medical records. Lab Data Attestation: I reviewed the patient's lab results. Result diagrams: 02/10/21 11:05 02/10/21 11:05 Labs: Lab Results 02/10/21 02/10/21 02/10/21 Range/Units 11:05 11:05 11:05 WBC 9.8 (4.8-10.8) X10*3/uL RBC 5.24 (4.20-5.50) X10*6/uL Hgb 13.5 (12.0-16.0) g/dl Hct 43.2 (37-47) % MCV 82.4 (80-98) fL MCH 25.8 L (27.0-33.0) pg MCHC 31.3 (31.0-35.0) g/dl RDW 14.5 (11.0-16.0) % Plt Count 236 (160-400) X10*3/uL MPV 9.3 L (9.4-12.3) fL Immature Gran % (Auto) 0.3 (0.0-0.4) % Neut % (Auto) 60.3 (45-73) % Lymph % (Auto) 33.1 (20-40) % Reagan % (Auto) 5.1 (2-11) % Eos % (Auto) 0.6 (0-4) % Baso % (Auto) 0.6 (0-2) % Lymph # (Auto) 3.2 (1.2-4.9) X10*3/uL Reagan # (Auto) 0.5 (0.1-1.2) X10*3/uL Eos # (Auto) 0.1 (0.0-0.4) X10*3/uL Baso # (Auto) 0.1 (0.0-0.2) X10*3/uL Abs Immat Gran (auto) 0.03 (0.00-0.03) X10*3/uL Absolute Neuts (auto) 5.9 (2.0-8.3) X10*3/uL Absolute Nucleated RBC 0.000 (0.0-0.012) X10*3/uL Nucleated RBC % (auto) 0.0 (0.0-0.2) /100WBC PT 10.9 (10.8-13.0) SEC INR 0.9 (0.9-1.1) APTT 30.2 (24.1-38.0) SEC Sodium 141 (135-145) mmol/L Potassium 3.9 (3.3-5.1) mmol/L Chloride 102 (96-108) mmol/L Carbon Dioxide 26 (22-29) mmol/L Anion Gap 17 (12-20) BUN 18 H (9-16) mg/dL Creatinine 0.74 (0.5-1.4) mg/dL Estim Creat Clear Calc 49.0 Estimated GFR > 60 Random Glucose 84 (60-115) mg/dL Calcium 10.1 D (8.4-10.2) mg/dL Magnesium 2.2 (1.6-2.6) mg/dL Total Bilirubin 0.7 (0.0-1.0) mg/dL AST 16 (5-31) U/L ALT 18 (0-31) U/L Alkaline Phosphatase 88 (39-117) U/L Total Creatine Kinase 30 (26-140) U/L Total Protein 7.3 (6.5-8.0) g/dL Albumin 4.2 (3.5-5.0) g/dL Imaging Data Abdomen/pelvis CT with IV contrast: Radiologist's impression: [address] [id number] Scan ReportSigned Patient: Marita Murray RMR#: [id number]: 4Acct:[id number]/Sex: 65 / FADM Date: 02/10/21Loc: EDAttending Dr: Ordering Physician: Tyler Morales NP Date of Service: 02/10/21 Procedure(s): CT abdomen pelvis w con Accession Number(s): [id number] cc: Tyler Morales NP~ EXAMINATION: CT ABDOMEN AND PELVIS WITH CONTRAST CLINICAL INFORMATION: Right flank pain COMPARISON: CT dated 01/12/2021 TECHNIQUE: Multidetector volumetric images were obtained from the superior aspect of the liver through the pubic symphysis following administration 85 mL of Omnipaque 350 intravenous contrast. Sagittal and coronal reformatted images were obtained on the technologist's workstation. Oral contrast: No This CT examination was performed using dose optimization techniques as appropriate, variously including the following: *Automated exposure control *Adjustment of mA and/or kV according to patient size (this includes techniques or standardized protocols for targeted exams where dose is matched to indication/reason for exam; i.e. extremities or head) *Use of iterative reconstruction technique DLP: 725 mGy-cm FINDINGS: LUNG BASES: The visualized lung bases are unremarkable. LIVER, GALLBLADDER, AND BILIARY TREE: The liver is normal in size, shape, and attenuation. No focal hepatic lesion or biliary ductal dilatation is present. Gallbladder unremarkable. PANCREAS: Unremarkable. SPLEEN: Unremarkable. ADRENAL GLANDS: Unremarkable. KIDNEYS AND URETERS: The kidneys are normal in size, shape, and attenuation. No hydronephrosis, hydroureter, or calculi seen. Stable 2.0 cm cyst in the upper pole of left kidney. No perinephric stranding. BLADDER: Unremarkable. GASTROINTESTINAL TRACT: The small and large bowel are unremarkable. Duodenal diverticulum emanating from the junction of the second and third portions. The appendix is unremarkable. ABDOMINAL WALL: Small fat-containing umbilical hernia. LYMPH NODES: Normal. VASCULAR: Unremarkable. PELVIC VISCERA: Unremarkable. OSSEOUS STRUCTURES: Unremarkable. CT/CT abdomen pelvis w con IMPRESSION: No acute findings within the abdomen or pelvis to explain the patient's symptomatology. Dictated By:MARÍA ELENA GANDHI MDSigned By:<Electronically signed by MARÍA ELENA GANDHI MD in OV>02/10/21 1431 DD/ 1322TD/TT: Premium Card Cancellation Clerk: JESSICA Discharge Plan Discharge Clinical Impression: Back pain Qualifiers: Back pain location: low back pain Chronicity: chronic Back pain laterality: right Sciatica presence: unspecified whether sciatica present Qualified Code(s): M54.5 - Low back pain Patient Disposition: Home, Self-Care Instructions: Back Pain (ED) Additional Instructions: Your blood work was overall reassuring The repeat CT scan of your abdomen pelvis does not show any acute findings Your pain is most consistent with full muscle/muscle irritation on the right lower side back. Warm compresses Gentle stretching For lidocaine patch Muscle relaxant Good body posture and core body exercises Follow with her primary care doctor Follow-up physical therapy as needed Return if any concerns or symptoms Thank you Prescriptions: New lidocaine 4 % adhesive patch,medicated 1 patch topical Q24H PRN (Reason: pain) Qty: 15 RF: 0 diazepam [Valium] 5 mg tablet 5 mg PO BID PRN (Reason: muscle spasm) Qty: 10 RF: 0 No Action albuterol sulfate 90 mcg/actuation HFA aerosol inhaler 2 puff inhalation Q4-6H PRN (Reason: shortness of breath or wheezing) 30 Days Qty: 6.7 RF: 6 metoprolol succinate 25 mg tablet extended release 24 hr 25 mg PO DAILY 90 Days Qty: 90 RF: 3 miscellaneous medical supply Misc 1 ea miscellaneous .COMPLEX Qty: 1 RF: 0 miscellaneous medical supply Misc 1 ea miscellaneous .COMPLEX Qty: 1 RF: 0 (DME) miscellaneous medical supply Misc See Rx Instructions .ROUTE .MEDSUPPLY Qty: 1 RF: 0 miscellaneous medical supply Misc 1 ea miscellaneous .COMPLEX Qty: 1 RF: 0 (DME) miscellaneous medical supply Misc See Rx Instructions .ROUTE .MEDSUPPLY Qty: 1 RF: 0 (DME) Ultra-Light Rollator Misc See Rx Instructions .ROUTE .MEDSUPPLY Qty: 1 RF: 0 albuterol sulfate 2.5 mg /3 mL (0.083 %) solution for nebulization 2.5 mg inhalation Q4-6H PRN (Reason: shortness of breath or wheezing) 30 Days Qty: 75 RF: 6 Proair Digihaler 90 mcg/actuation aero powdr breath act w/sensor 2 inh inhalation Q4-6H PRN (Reason: shortness of breath or wheezing) 30 Days Qty: 1 RF: 6 albuterol sulfate 2.5 mg /3 mL (0.083 %) solution for nebulization 2.5 mg inhalation Q4-6H PRN (Reason: shortness of breath or wheezing) 30 Days Qty: 90 RF: 6 oxycodone-acetaminophen 7.5-325 mg tablet 1 tab PO Q6H PRN (Reason: pain) 30 Days Qty: 120 RF: 0 prednisone 20 mg tablet 20 mg PO .COMPLEX Qty: 18 RF: 0 baclofen 10 mg tablet 10 mg PO BEDTIME 7 Days Qty: 7 RF: 0 meloxicam 15 mg Tablet 15 mg PO DAILY RF: 0 meclizine 25 mg Tablet 25 mg PO DAILY PRN (Reason: Dizziness) RF: 0 morphine 15 mg tablet 15 mg PO Q4-6H PRN (Reason: pain) Qty: 10 RF: 0 ondansetron 4 mg tablet,disintegrating PO RF: 0 calcium carbonate [Calcium 600] 600 mg calcium (1,500 mg) tablet 600 mg PO BID 90 Days Qty: 180 RF: 3 atorvastatin 20 mg tablet 20 mg PO DAILY 90 Days Qty: 90 RF: 3 cholecalciferol (vitamin D3) [Vitamin D3] 50 mcg (2,000 unit) tablet 50 mcg PO DAILY Qty: 30 RF: 5 cyanocobalamin (vitamin B-12) [Vitamin B-12] 1,000 mcg tablet 1,000 mcg PO DAILY Qty: 90 RF: 1 fluoxetine 40 mg capsule 40 mg PO DAILY Qty: 90 RF: 1 furosemide 20 mg tablet 20 mg PO DAILY 90 Days Qty: 90 RF: 3 Referrals: Adrianna Sharp MD [Primary Care Provider] - 3 days
[2021-02-10] MEDS: Ketorolac Tromethamine 30 MG/ML VIAL 15 MG IVPUSH (11:06)
[2021-02-10 11:11] LABS: MANUAL DIFF FLAG NO
[2021-02-10 11:14] LABS: Basophils Absolute Auto 0.1 X10*3/uL (0.0-0.2); Basophils Percent Auto 0.6 % (0-2); Eosinophils Absolute Auto 0.1 X10*3/uL (0.0-0.4); Eosinophils Percent Auto 0.6 % (0-4); Hematocrit 43.2 % (37-47); Hemoglobin 13.5 g/dl (12.0-16.0); Imm Gran Abs Auto 0.03 X10*3/uL (0.00-0.03); Imm Gran Pct Auto 0.3 % (0.0-0.4); Lymphocytes Absolute Auto 3.2 X10*3/uL (1.2-4.9); Lymphocytes Percent Auto 33.1 % (20-40); Mean Corpuscular HGB Conc 31.3 g/dl (31.0-35.0); Mean Corpuscular Hemoglobin 25.8 pg (27.0-33.0); Mean Corpuscular Volume 82.4 fL (80-98); Mean Platelet Volume 9.3 fL (9.4-12.3); Monocytes Absolute Auto 0.5 X10*3/uL (0.1-1.2); Monocytes Percent Auto 5.1 % (2-11); Neutrophils Absolute Auto 5.9 X10*3/uL (2.0-8.3); Neutrophils Percent Auto 60.3 % (45-73); Platelet Count 236 X10*3/uL (160-400); Red Blood Count 5.24 X10*6/uL (4.20-5.50); Red Cell Distribution Width 14.5 % (11.0-16.0); White Blood Count 9.8 X10*3/uL (4.8-10.8)
[2021-02-10 11:20] LABS: INTERNATIONAL NORM RATIO 0.9 (0.9-1.1); Prothrombin Time 10.9 SEC (10.8-13.0)
[2021-02-10 11:22] LABS: Partial Thromboplastin Time 30.2 SEC (24.1-38.0)
--- NOTE | 2021-02-10 11:27 | PC.NURSE ---
Pt alert and oriented, skin pink, warm, dry. Pt reports RL Back pain x1 month unrelieved by home pain meds. No rash/open areas noted to site.. Labs obtained results pending. Pt sleeping after getting pain meds.
[2021-02-10 12:05] LABS: Alanine Aminotransferase 18 U/L (0-31); Albumin Level 4.2 g/dL (3.5-5.0); Alkaline Phosphatase 88 U/L (39-117); Anion Gap 17 (12-20); Aspartate Amino Transferase 16 U/L (5-31); Bilirubin Total 0.7 mg/dL (0.0-1.0); Blood Urea Nitrogen 18 mg/dL (9-16); Calcium 10.1 mg/dL (8.4-10.2); Carbon Dioxide 26 mmol/L (22-29); Chloride 102 mmol/L (96-108); Estimated Glomerular Filt Rate > 60; Glucose Random 84 mg/dL (60-115); Magnesium 2.2 mg/dL (1.6-2.6); Potassium 3.9 mmol/L (3.3-5.1); Sodium 141 mmol/L (135-145); Total Protein 7.3 g/dL (6.5-8.0)
--- NOTE | 2021-02-10 14:00 | PC.NURSE ---
off unit for CT scan at this time
[2021-02-10] MEDS: iohexoL 350 MG/ML 100 ML INFUS..BTL IV (14:13)
[2021-02-10 14:21] VITALS: BP 153/82; PULSE 69; RESP 16
== END 2021-02-10 15:24 | disposition home or self-care (01) ==
PROVIDERS: Nurse Practitioner Primary Care; Emergency Provider Emergency Medicine; PCP Internal Medicine
DX: M54.5 Low back pain (principal); I10 Essential (primary) hypertension; J45.909 Unspecified asthma, uncomplicated; E78.5 Hyperlipidemia, unspecified; F12.90 Cannabis use, unspecified, uncomplicated; Z85.3 Personal history of malignant neoplasm of breast
CPT/HCPCS: 36415; 74177; 80053; 82550; 83735; 85025; 85610; 85730; 96374; 99284; J1885; Q9967

== ENCOUNTER 2021-02-19 10:05 | Outpatient (REF) | payer MEDICARE, MEDICAID, SELFPAY ==
--- NOTE | ~2021-02-19 | XR_ITS ---
EXAMINATION: XR HIP, RIGHT CLINICAL INFORMATION: Right hip pain COMPARISON: Radiographs right hip 01/21/2017 TECHNIQUE: Two views of the right hip. FINDINGS: There is mild narrowing superior medial hip joint. No erosive change or visible chondrocalcinosis. Soft tissue planes appear normal. The visualized right SI joint and pubis are unremarkable. There is no fracture or dislocation or destructive process. Numerous calcified phleboliths are again noted in the deep pelvis. XR/XR hip RT min 2V IMPRESSION: Superior medial right hip joint narrowing. No erosive change.
== END 2021-02-19 10:06 | disposition home or self-care (01) ==
LOC: HO.XRAY 10:05
PROVIDERS: PCP Internal Medicine; Visit Provider Internal Medicine
DX: M25.551 Pain in right hip (principal)
CPT/HCPCS: 73502

== ENCOUNTER 2021-07-21 15:33 | Outpatient (REF) | payer MEDICARE, MEDICAID, SELFPAY | END 2021-07-21 15:34 | disposition home or self-care (01) | LOC: HO.LNP 15:33 | PROVIDERS: Visit Provider Physician Assistant Medical | DX: R06.2 Wheezing (principal); R30.0 Dysuria; Z20.822 Contact with and (suspected) exposure to COVID-19 | CPT/HCPCS: U0003; U0005 ==

== ENCOUNTER 2022-01-18 10:15 | Outpatient (REF) | payer MEDICARE, MEDICAID, SELFPAY ==
[2022-01-18 10:35] LABS: MANUAL DIFF FLAG NO
[2022-01-18 10:42] LABS: Basophils Absolute Auto 0.1 X10*3/uL (0.0-0.2); Basophils Percent Auto 0.9 % (0-2); Eosinophils Absolute Auto 0.2 X10*3/uL (0.0-0.4); Eosinophils Percent Auto 3.5 % (0-4); Hematocrit 40.3 % (37.0-47.0); Hemoglobin 12.6 g/dl (12.0-16.0); Imm Gran Abs Auto 0.02 X10*3/uL (0.00-0.03); Imm Gran Pct Auto 0.3 % (0.0-0.4); Lymphocytes Absolute Auto 2.3 X10*3/uL (1.2-4.9); Lymphocytes Percent Auto 33.2 % (20-40); Mean Corpuscular HGB Conc 31.3 g/dl (31.0-35.0); Mean Corpuscular Hemoglobin 25.5 pg (27.0-33.0); Mean Corpuscular Volume 81.4 fL (80.0-98.0); Mean Platelet Volume 9.1 fL (9.4-12.3); Monocytes Absolute Auto 0.4 X10*3/uL (0.1-1.2); Monocytes Percent Auto 5.8 % (2-11); Neutrophils Absolute Auto 3.9 x10*3/uL (2.0-8.3); Neutrophils Percent Auto 56.3 % (45-73); Platelet Count 252 X10*3/uL (160-400); Red Blood Count 4.95 X10*6/uL (4.20-5.50); Red Cell Distribution Width 14.9 % (11.0-16.0); White Blood Count 6.8 X10*3/uL (4.8-10.8)
[2022-01-18 11:06] LABS: Alanine Aminotransferase 18 U/L (0-31); Albumin Level 4.1 g/dL (3.5-5.0); Alkaline Phosphatase 84 U/L (39-117); Anion Gap 10 (12-20); Aspartate Amino Transferase 19 U/L (5-31); Blood Urea Nitrogen 16 mg/dL (9-16); Calcium 9.8 mg/dL (8.4-10.2); Carbon Dioxide 29 mmol/L (22-29); Chloride 105 mmol/L (96-108); Cholesterol 180 mg/dL; Estimated Glomerular Filt Rate > 60; Glucose Fasting 95 mg/dL (60-99); HDL Cholesterol 73 mg/dL; Iron 83 mcg/dL (30-160); LDL Cholesterol Calculated 85 mg/dl; Percent Iron Saturation 21 % (15-50); Potassium 4.3 mmol/L (3.3-5.1); Sodium 140 mmol/L (135-145); Total Iron Binding Capacity 403 mcg/dL (228-428); Total Protein 6.9 g/dL (6.5-8.0); Triglycerides 114 mg/dL; Unsaturated Iron Binding 320 ug/dL
[2022-01-18 11:29] LABS: Thyroid Stimulating Hormone 5.35 uIU/mL (0.32-4.0); Vitamin D 25-OH Total 22.8 ng/mL (>30)
[2022-01-18 11:39] LABS: Folate 11.5 ng/mL (> or = 4.0); Vitamin B12 535 pg/mL (200-900)
== END 2022-01-18 10:16 | disposition home or self-care (01) ==
LOC: HO.LAB 10:15
PROVIDERS: PCP Internal Medicine; Visit Provider Internal Medicine
DX: I10 Essential (primary) hypertension (principal); L65.9 Nonscarring hair loss, unspecified; D64.9 Anemia, unspecified; E53.8 Deficiency of other specified B group vitamins; E78.5 Hyperlipidemia, unspecified; E55.9 Vitamin D deficiency, unspecified
CPT/HCPCS: 36415; 80053; 80061; 82306; 82607; 82746; 83540; 84443; 85025

== ENCOUNTER → 2022-04-10 14:01 | Outpatient (REF) | payer MEDICARE, MEDICAID, SELFPAY ==
--- NOTE | 2022-04-10 14:04 | CA_ITS ---
Transthoracic Echocardiogram Patient (Last, First, Middle): Marita Murray R Gender: Female Date of : 1955 Age: 66 Procedure Date: 04/10/2022 Procedure Type: Transthoracic Echocardiogram Location: OP Height: 149.86 cm Weight: 88. kg BSA: 1.82 m2 Heart Rate: bpm BP: 138 / 72 mmHg Buckler And Lacer: ASHLEY Referring MD: Adrianna Richter MD Marine Erector: Prabhakar Segura MD Symptoms: R01.1 - Cardiac murmur, unspecified Study Quality: Technically Difficult/Contrast ECG Rhythm: Sinus Conclusions: - 1. Low normal LV systolic function with LVEF of 50-55% with mild LVH with impaired relaxation filling pattern and elevated filling pressures 2. Mild aortic stenosis 3. Normal RV systolic pressure 4. No gross pericardial effusion Findings Procedure Information Contrast agent, definity, is being given per protocol without apparent complications. Left Ventricle Normal left ventricular cavity size. There is mildly increased left ventricular wall thickness. The left ventricular systolic function is low normal. The visually estimated ejection fraction is between 50-55%. There is paradoxical septal motion consistent with a left bundle branch block. Spectral Doppler is indicative of an impaired relaxation filling pattern. Elevated filling pressures. Right Ventricle The right ventricle was not well visualized. Atria The left atrium is normal in size. Interatrial shunt cannot be excluded. The right atrium is normal in size. Aortic Valve The aortic valve was not well visualized. There is mild aortic valve stenosis. The mean gradient is 9 mmHg. The aortic valve area is 1.72 cm2. There is no aortic valve regurgitation. Mitral Valve There is mild anterior and posterior mitral leaflet thickening. There is trace mitral valve regurgitation. There is no mitral valve stenosis. Pulmonic Valve The pulmonic valve was not well visualized. Tricuspid Valve Likely normal tricuspid valve structure and function. There is trace tricuspid valve regurgitation. The right ventricular systolic pressure is normal. The right ventricular systolic pressure is 23 mmHg. Normal right atrial pressure. There is no evidence of pulmonary hypertension. Great Vessels All visible segments of the aorta are normal in size. The pulmonary artery was not well visualized. Venous The inferior vena cava is normal in size and collapses greater than 50% with inspiration. Pericardium/Pleural There is no evidence of pericardial effusion. Prior Study Comparison No significant change compared to prior study dated: 07/07/2019. Measurements 2D Linear Measurements IVSd: 1.11 0.6-0.9/0.6-1.0 cm LVIDd: 4.26 3.9-5.3/4.2-5.9 cm LVIDd Index: 2.34 2.4-3.2/2.2-3.1 cm/m2 LVIDs: 2.84 2.0-3.6 cm LVPWd: 1.20 0.7-1.1 cm LA Diam: 3.60 2.7-3.8/3.0-4.0 cm LAIDs Index: 1.98 1.5-2.3 cm/m2 LV Mass: 214.54 67-162/88-224 g LV Mass Index: 117.88 43-95/49-115 g/m2 LVOT Diam: 2.00 3.0+(-)1.3 cm 2D Systolic Function EF 4C: 51.90 >55% EF 2C: 51.60 >55% EF BiP: 51.00 >55% Mitral Valve MV Pk E: 0.98 MV PK A: 0.89 MV Decel Time: 217.00 E/A: 1.10 E'Lateral: 7.40 E'Medial: 5.00 E/E' Med: 19.50 E/E' Lat: 13.20 PHT: 63.00 MVA PHT: 3.49 Decel [place]: 4.51 Aortic Valve AoV Pk Erick: 2.06 AoV Mn Erick: 1.36 AoV VTI: 0.46 AoV Pk Grad: 17.00 Aov Mn Grad: 9.00 PRABHJOT Cont.VTI: 1.72 LVOT LVOT Pk Erick: 1.05 LVOT Mn Erick: 0.79 LVOT VTI: 0.25 LVOT Pk Grad: 4.00 LVOT Mn Grad: 3.00 LVOT Diam: 2.00 LVOT Area: 3.14 Diastolic Function MV Pk E: 0.98 MV Pk A: 0.89 E/A: 1.10 E'Medial: 5.00 E/E' Med: 19.50 E' Laterial: 7.40 E/E' Lat: 13.20 Right Ventricle TAPSE (mm): 16.10 TVS' Erick: 8.49 Tricuspid Valve TR Pk Erick: 2.24 TR Pk Grad: 20.00 RA Press: 3.00 RVSP: 23.00 Great Vessels Aorta Sinus of Valsalva: 3.00 2.0-3.5 cm Ao Asc: 3.10 2.1-3.4 cm Ao Arch: 3.30 Updated in Other Vendor System with Status of Final Prabhakar Segura MD electronically signed on 04/11/2022 11:36:09 AM with status of Final
== END ==
LOC: HO.CARD 14:01
PROVIDERS: Visit Provider Internal Medicine
DX: R01.1 Cardiac murmur, unspecified (principal)
CPT/HCPCS: 93306; Q9957

== ENCOUNTER 2022-05-29 13:08 | Outpatient (REF) | payer MEDICARE, MEDICAID, SELFPAY ==
--- NOTE | ~2022-05-29 | MM_ITS ---
EXAMINATION: BONE DENSITOMETRY CLINICAL INDICATION: Asymptomatic menopausal state. COMPARISON: Baseline BD dated 02/02/2015. TECHNIQUE: Using a XPlace DXA System (software version: 13.1) manufactured by [employer], dual-energy x-ray absorptiometry was performed of the lumbar spine and left hip. The images are of good technical quality. Summary results are attached. FINDINGS: AP SPINE L3-L4 (excluding L1 and L2): The data of L1-L4 has been changed to exclude the L1 and L2 vertebral bodies, because degenerative changes at these levels may cause overestimation of lumbar spine density. Current: BMD 1.004 g/cm2, Z-score -0.9, T-score -1.6, osteopenia, 4.4% decrease from baseline (<5% change is not significant). Baseline: BMD 1.050 g/cm2. LEFT FEMUR, NECK: Current: BMD 0.868 g/cm2, Z-score -0.2, T-score -1.2, osteopenia. Baseline: BMD 0.975 g/cm2. LEFT FEMUR, TOTAL: Current: BMD 1.117 g/cm2, Z-score 1.6, T-score 0.9, normal, 1.5% increase from baseline (<5% change is not significant). Baseline: BMD 1.101 g/cm2. IDENTIFIED RISK FACTORS: Menopause, tobacco use (current smoker). HISTORY OF FRACTURE: None listed. MEDICATIONS: Vitamin D. MM/XR DEXA axial skeleton IMPRESSION: 1. DIAGNOSIS: Osteopenia based on the lowest T-score value of -1.6 in the lumbar spine applying World Health Organization criteria. 2. 10-YEAR FRACTURE RISK PREDICTION, FRAX: Major osteoporotic fracture (clinical spine, forearm, hip or shoulder) 4.5%. Hip fracture 0.7%. 3. Treatment Recommendations: NOF guidelines recommend consideration for treatment in postmenopausal women and men age 50 and older presenting with the following: -A hip or vertebral (clinical or morphometric) fracture. -T-score less than or equal to -2.5 at the femoral neck or spine after appropriate evaluation to exclude secondary causes. -Low bone mass at the hip or spine and a 10-year fracture probability by FRAX of greater than or equal to 3% for hip fracture or greater than or equal to 20% for major osteoporotic fracture based on the [place] adapted WHO algorithm. 4. Other Recommendations: All treatment decisions require clinical judgment and consideration of individual patient factors, including patient preferences, comorbidities, previous drug use, risk factors not captured in the FRAX model (e.g. frailty, falls, vitamin D deficiency, increased bone turnover, interval significant decline in bone density) and possible under or overestimation of fracture risk by FRAX. Additional medical evaluation for secondary cause of low bone mineral density may be appropriate. FUTURE SCAN RECOMMENDATION: People with diagnosed cases of osteoporosis or at high risk for fracture should have regular bone mineral density tests. For patients eligible for Medicare, routine testing is allowed once every 2 years. The testing frequency can be increased to one year for patients who have rapidly progressing disease, those who are receiving or discontinuing medical therapy to restore bone mass, or have additional risk factors.
== END 2022-05-29 13:09 | disposition home or self-care (01) ==
LOC: HO.MAMMO 13:08
PROVIDERS: PCP Internal Medicine; Visit Provider Internal Medicine
DX: Z13.820 Encounter for screening for osteoporosis (principal); Z78.0 Asymptomatic menopausal state
CPT/HCPCS: 77080

== ENCOUNTER → 2022-07-02 14:17 | Outpatient (BNVA) | payer MEDICARE, MEDICAID, SELFPAY | PROVIDERS: PCP Internal Medicine; Visit Provider Internal Medicine Pulmonary Disease | DX: J45.30 Mild persistent asthma, uncomplicated (principal); G47.33 Obstructive sleep apnea (adult) (pediatric) | CPT/HCPCS: 99202 ==

== ENCOUNTER 2022-08-04 17:55 | Inpatient (IN) | payer MEDICARE, MEDICAID, SELFPAY ==
--- NOTE | ~2022-08-04 | US_ITS ---
EXAMINATION: US ABDOMEN LIMITED CLINICAL INFORMATION: Epigastric pain. COMPARISON: CT abdomen pelvis earlier today. TECHNIQUE: Real-time imaging of the right upper quadrant viscera. FINDINGS: PANCREAS: The pancreas could not be seen secondary to overlying bowel gas. ABDOMINAL AORTA: The proximal, mid, and distal segments are normal in caliber. INFERIOR VENA CAVA: Visualized portions are normal. LIVER: The liver is normal in size. The liver contour is normal. There is a question of increased liver parenchymal echogenicity suggesting hepatic steatosis. No focal hepatic lesion. There is no intrahepatic biliary duct dilatation seen. GALLBLADDER: The gallbladder is distended with mobile stones and echogenic bile. Diggs's sign is positive with tenderness over the gallbladder . No pericholecystic fluid is seen. COMMON BILE DUCT: Normal in caliber measuring 0.7 cm in diameter. FREE FLUID: None. US/US abdomen complete IMPRESSION: Distended tender gallbladder with mobile gallstones without pericholecystic fluid or significant wall thickening. There is intrahepatic biliary ductal dilatation, similar to that seen on the CT scan.
--- NOTE | ~2022-08-04 | MR_ITS ---
EXAMINATION: MR ABDOMEN WITHOUT CONTRAST CLINICAL INFORMATION: Elevated liver enzymes. COMPARISON: CT abdomen pelvis 08/04/2022 TECHNIQUE: MRI of the abdomen without contrast was obtained using routine sequences. Heavily T2 weighted MRCP sequences were also obtained FINDINGS: Regions of the upper abdomen were excluded from the [id number] limiting evaluation. LUNG BASES: The visualized lung bases are unremarkable. KIDNEYS AND URETERS: Bosniak 1 benign-appearing left renal cyst. GALLBLADDER: Gallbladder is distended with wall thickening and mild pericholecystic inflammatory change with layering sludge or conglomerate tiny stones within the gallbladder. LIVER AND BILIARY TREE: Subtle loss of signal on opposed phase imaging suggesting hepatic steatosis. On the thick sliced T2-weighted sequences there is a suspected filling defect within the distal common duct, 3:4 and 4:11 and 12 raising the suspicion for possible choledocholithiasis however this is not definitively appreciated on MRCP sequences and therefore flow void artifacts remains a differential consideration. Recommend correlation with ERCP. Common bile duct measures 6 mm which is within normal limits of caliber without significant intrahepatic biliary duct dilatation. PANCREAS: Unremarkable SPLEEN: Unremarkable ADRENAL GLANDS: Unremarkable GASTROINTESTINAL TRACT: Duodenal diverticulum. LYMPH NODES: No lymphadenopathy. VASCULAR: Unremarkable ABDOMINAL WALL: Unremarkable. OSSEOUS STRUCTURES: Unremarkable. MR/MR MRCP IMPRESSION: 1. Gallbladder is distended with wall thickening and mild pericholecystic inflammatory change with layering sludge or conglomerate tiny stones within the gallbladder. Findings could reflect acute cholecystitis in the appropriate clinical setting. 2. On the thick sliced T2-weighted sequences there is a suspected filling defect within the distal common duct, raising the suspicion for possible choledocholithiasis however this is not definitively appreciated on MRCP sequences and therefore flow void artifacts remains a differential consideration. Recommend correlation with ERCP. Common bile duct measures 6 mm which is within normal limits of caliber without significant intrahepatic biliary duct dilatation. 3. Subtle loss of signal on opposed phase imaging suggesting hepatic steatosis. The findings and recommendations were discussed with Cristian Robles MD by telephone at 08/07/2022 6:56 PM and it was ascertained that the content and urgency of the report was understood at the time of direct communication. Results were communicated within 1 hour of interpretation of the exam.
--- NOTE | ~2022-08-04 | CT_ITS ---
CT/CT abdomen pelvis w IV con IMPRESSION: Interval development of biliary ductal dilatation. Correlate with LFTs. No obstructing source demonstrated. Further assessment with ERCP or MRCP recommended. Fleischner guidelines were followed. EXAMINATION: CT ABDOMEN AND PELVIS WITH CONTRAST CLINICAL INFORMATION: Pain COMPARISON: 02/10/2021 TECHNIQUE: Multidetector volumetric images were obtained from the superior aspect of the liver through the pubic symphysis following administration 85 mL of Omnipaque 350 intravenous contrast. Sagittal and coronal reformatted images were obtained on the technologist's workstation. Oral contrast: No This CT examination was performed using dose optimization techniques as appropriate, variously including the following: *Automated exposure control *Adjustment of mA and/or kV according to patient size (this includes techniques or standardized protocols for targeted exams where dose is matched to indication/reason for exam; i.e. extremities or head) *Use of iterative reconstruction technique DLP: 960 mGy-cm FINDINGS: LUNG BASES: The visualized lung bases are unremarkable. LIVER, GALLBLADDER, AND BILIARY TREE: The liver is normal in size, shape, and attenuation. No focal hepatic lesion but there is interval development of biliary ductal dilatation intrahepatically extrahepatic. There is a large duodenal diverticulum at the second portion of duodenum. No definite choledocholithiasis is appreciated. Pancreas duct is not dilated. Gallbladder is distended without stones or acute inflammatory changes. PANCREAS: Unremarkable. SPLEEN: Unremarkable. ADRENAL GLANDS: Right adrenal gland normal. Small subcentimeter left adrenal nodule similar to baseline. KIDNEYS AND URETERS: The kidneys are normal in size, shape, and attenuation. No hydronephrosis, hydroureter, or calculi seen. No perinephric stranding. Exophytic left upper pole cyst similar. BLADDER: Unremarkable. GASTROINTESTINAL TRACT: The small and large bowel are unremarkable. The appendix is unremarkable. ABDOMINAL WALL: No significant hernia is appreciated. LYMPH NODES: Normal. VASCULAR: Unremarkable. PELVIC VISCERA: Unremarkable. OSSEOUS STRUCTURES: Unremarkable.
[2022-08-04 18:10] VITALS: BP 128/88; BP 146/54; PULSE 60; RESP 14; TEMP 36.7; O2SAT 96; O2SAT 98; BMI 41.2
[2022-08-04 18:14] VITALS: BP 146/54; PULSE 60; RESP 14; TEMP 36.7; O2SAT 98
--- NOTE | 2022-08-04 18:16 | ECG_ITS ---
Test Reason : ABDOMINAL PAIN Blood Pressure : / mmHG Vent. Rate : 064 BPM Atrial Rate : 064 BPM P-R Int : 166 ms QRS Dur : 140 ms QT Int : 416 ms P-R-T Axes : 056 002 172 degrees QTc Int : 429 ms Normal sinus rhythm Left bundle branch block Abnormal ECG When compared with ECG of 12-JAN-2021 12:29, Nonspecific T wave abnormality, worse in Anterior leads Referred By: Reji Cheung Electronically Signed By:JOSSELINE SALAZAR MD
--- NOTE | 2022-08-04 18:40 | ED_ITS ---
HPI - Abdominal Pain General Chief Complaint: Abdominal Pain Stated Complaint: nv Time Seen by Provider: 08/04/22 18:04 Source: patient Mode of arrival: ambulatory Limitations: no limitations History of Present Illness HPI narrative: 66-year-old female female history of asthma high cholesterol, previously the ED for epigastric abdominal pain that began today. Patient states nausea vomiting ever since. Patient described pain as sharp stabbing. Patient denies any chest pain, shortness of breath, fever, or chills. Patient states pain started after eating food. Related Data Home Medications Medication Instructions Recorded Confirmed meclizine 25 mg tablet 25 mg PO DAILY PRN Dizziness 08/02/20 05/20/22 Previous Rx's Medication Instructions Recorded miscellaneous medical supply #1 ea 11/08/20 miscellaneous medical supply #1 ea 11/08/20 miscellaneous medical supply 1 ea miscellaneous .COMPLEX #1 ea 11/08/20 miscellaneous medical supply 1 ea miscellaneous .COMPLEX #1 ea 11/08/20 miscellaneous medical supply 1 ea miscellaneous .COMPLEX #1 ea 11/08/20 walker (Ultra-Light Rollator misc) #1 ea 11/08/20 calcium carbonate 600 mg calcium 600 mg PO BID 90 days #180 tabs 11/13/20 (1,500 mg) tablet (Calcium) baclofen 10 mg tablet 10 mg PO BEDTIME 7 days #7 tabs 02/09/21 albuterol sulfate 90 mcg/actuation 2 inh inhalation Q4-6H PRN 10/05/21 breath activated powder shortness of breath or wheezing 30 inhaler,sensor (Proair Digihaler) days #1 ea metoprolol succinate 25 mg 25 mg PO DAILY 90 days #90 tabs 10/29/21 tablet,extended release 24 hr ondansetron 4 mg disintegrating 4 mg PO BID 30 days #60 tabs 10/29/21 tablet cyanocobalamin (vitamin B-12) 1,000 mcg PO DAILY #90 tabs 11/26/21 1,000 mcg tablet (Vitamin B-12) furosemide 20 mg tablet 20 mg PO DAILY 90 days #90 tabs 11/26/21 Magic Mouthwash 15 ml PO TID #240 mL 12/24/21 Diphen/Lido/Antacid 1:1:1 240 mL suspension albuterol sulfate 2.5 mg/3 mL 2.5 mg (3 mL) inhalation Q6H PRN 01/09/22 (0.083 %) solution for nebulization bronchospasm 30 days #75 mL atorvastatin 20 mg tablet 20 mg PO DAILY 90 days #90 tabs 01/27/22 fluoxetine 20 mg tablet 20 mg PO DAILY 90 days #90 tabs 04/12/22 fluoxetine 40 mg capsule 40 mg PO DAILY #90 caps 04/12/22 nystatin 100,000 unit/gram topical 1 appl topical DAILY 15 days #30 06/18/22 cream grams cholecalciferol (vitamin D3) 50 50 mcg PO DAILY #30 tabs 07/01/22 mcg (2,000 unit) tablet (Vitamin D3) amoxicillin 500 mg tablet 500 mg PO BID 7 days #14 tabs 07/02/22 fluticasone furoate 200 1 inh inhalation DAILY 30 days #1 07/02/22 mcg-vilanterol 25 mcg/dose ea inhalation powder (Breo Ellipta) oxycodone-acetaminophen 10 mg-325 1 tab PO Q6H PRN pain 30 days #120 07/30/22 mg tablet tabs Allergies Allergy/AdvReac Type Severity Reaction Status Date / Time latex [LATEX] Allergy Intermediate RASH Verified 07/02/22 14:23 Review of Systems Review of Systems epigastric pain Yes all other systems are reviewed and are negative [facility] Past Medical History Medical History (Updated 08/04/22 @ 21:45 by REBEKAH Landeros) Arthritis Asthma B12 deficiency Back pain Breast cancer Chronic pain Constipation Depression Dizziness Dyslipidemia Elevated TSH Foot pain, bilateral Hair loss Hair loss History of left bundle branch block (LBBB) History of pernicious anemia History of trigger finger History of vitamin D deficiency HTN (hypertension) Lumbar degenerative disc disease Mild aortic stenosis Mild recurrent major depression Moderate persistent asthma Morbid obesity Murmur On beta mel at home Right hip pain Sleep apnea Tinnitus Surgical History (Updated 05/20/22 @ 19:24 by BARRY Guzman) History of dilation and curettage History of lymph node dissection of left axilla History of total left knee replacement (TKR) History of total right knee replacement (TKR) Hx of bilateral cataract extraction Hx of colonoscopy Hx of esophagogastroduodenoscopy S/P lumpectomy, left breast Family History Family History Father Prostate cancer Hypertension Mother Skin cancer Dementia Diabetes Daughter Lupus Maternal Grandmother Diabetes Hypertension Maternal Grandfather No problems noted. Paternal Grandmother No problems noted. Paternal Grandfather Cancer Brother Prostate cancer Social History Social History Housing: House Alcohol intake: never Patient Tobacco Use Status: Never used Tobacco e-Cigarette/Vaping Use: Never Used Second Hand Smoke Exposure: No Substance Use Type: Marijuana Advance Directives: No Advance Directives Information Provided: No service: No Current occupational status: disabled Physical Exam ED Vital Signs: Vital Signs - 24 hr 08/04/22 18:10 08/04/22 18:14 Temperature 98.1 F 98.1 F Pulse Rate 60 60 Respiratory Rate 14 14 Blood Pressure 146/54 H 146/54 H Pulse Oximetry 98 98 Oxygen Delivery Method Room Air Room Air BMI result Body Mass Index 41.2 Const General: cooperative, healthy appearing, comfortable, no acute distress, well developed, alert, awake and Physically active Orientation/consciousness: patient oriented x3 HENMT Head: Yes normal to inspection, Yes No palpable skull fracture present, Yes normocephalic, Yes atraumatic and No abrasion Eyes General: appearance normal, both eyes and all related structures Neck Neck: Yes normal visual inspection, Yes full ROM, Yes no lymphadenopathy, Yes no meningeal signs, Yes trachea midline, Yes supple, No anterior neck swelling and No tender Chest Chest palpation & inspection: normal inspection of the chest and normal palpation of entire chest wall Resp Effort & Inspection: normal respiratory effort and able to speak in complete sentences Auscultation: clear to auscultation bilaterally Cardio Jugular venous distension: no JVD Heart sounds: S1 normal heart sound present and S2 normal heart sound present GI Inspection: Yes normal to inspection and No abdominal wall ecchymosis Palpation (GI): Soft to palpation, not firm, Tenderness to palpation present (GI) in the epigastrum, no guarding and not rigid General: No CVA tenderness and Yes no CVA tenderness Back/Spine/Pelvis Back: no CVA tenderness, No CVA tenderness and No back tenderness Skin General skin exam: no rashes or lesions noted and elasticity normal Neuro General: patient oriented x3, gait normal, tone normal, no meningeal signs and CN's II-XI intact bilaterally Cranial nerves: Yes CN's II-XII intact bilaterally Extrem General: Yes normal to inspection and Yes full ROM Psych Appearance: grossly normal, well kempt and not disheveled Course Course Course Narrative: Due to each patient had EKG and troponin ordered rest of labs will be ordered morphine Pepcid and viscous lidocaine ordered. Patient may need imaging and EKG troponin negative. Reevaluation(s) Reevaluation #1: Patient elevated liver enzymes. Lipase normal. CT scan shows distended gallbladder with biliary duct dilatation recommend ERCP. Patient is sent for ultrasound. Case signed out to REBEKAH [place]. Dr. Flood of General surgery made aware. He recommends no ultrasound and states patient should be admitted for ERCP Time: 21:41 MDM - Abdominal Pain MDM Narrative Medical decision making narrative: Biliary colic Lab Data Result diagrams: 08/04/22 18:49 08/04/22 18:50 Labs: Lab Results 08/04/22 08/04/22 08/04/22 Range/Units 18:49 18:49 18:49 WBC 11.0 H (4.8-10.8) X10*3/uL RBC 4.86 (4.20-5.50) X10*6/uL Hgb 12.0 (12.0-16.0) g/dl Hct 38.4 (37.0-47.0) % MCV 79.0 L (80.0-98.0) fL MCH 24.7 L (27.0-33.0) pg MCHC 31.3 (31.0-35.0) g/dl RDW 15.1 (11.0-16.0) % Plt Count 363 D (160-400) X10*3/uL MPV 9.5 (9.4-12.3) fL Immature Gran % (Auto) 0.9 H (0.0-0.4) % Neut % (Auto) 86.2 H (45-73) % Lymph % (Auto) 8.0 L (20-40) % Humphreys % (Auto) 4.3 (2-11) % Eos % (Auto) 0.1 (0-4) % Baso % (Auto) 0.5 (0-2) % Lymph # (Auto) 0.9 L (1.2-4.9) X10*3/uL Humphreys # (Auto) 0.5 (0.1-1.2) X10*3/uL Eos # (Auto) 0.0 (0.0-0.4) X10*3/uL Baso # (Auto) 0.1 (0.0-0.2) X10*3/uL Abs Immat Gran (auto) 0.10 H (0.00-0.03) X10*3/uL Absolute Neuts (auto) 9.5 H (2.0-8.3) x10*3/uL Absolute Nucleated RBC 0.000 (0.0-0.012) X10*3/uL Nucleated RBC % (auto) 0.0 (0.0-0.2) /100WBC PT 11.4 (10.0-13.1) SEC INR 1.0 (0.9-1.1) APTT 25.6 L (26.0-36.4) SEC Sodium (135-145) mmol/L Potassium (3.3-5.1) mmol/L Chloride (96-108) mmol/L Carbon Dioxide (22-29) mmol/L Anion Gap (12-20) BUN (9-16) mg/dL Creatinine (0.5-1.4) mg/dL Estim Creat Clear Calc Estimated GFR Random Glucose (60-115) mg/dL Calcium (8.4-10.2) mg/dL Total Bilirubin (0.0-1.0) mg/dL AST (5-31) U/L ALT (0-31) U/L Alkaline Phosphatase (39-117) U/L Troponin I High Sens (<3.5-17.0) ng/L Total Protein (6.5-8.0) g/dL Albumin (3.5-5.0) g/dL Lipase (8-78) U/L COVID-19 (JOCE) Negative (Negative) COVID-19 Clin Com See Note 08/04/22 08/04/22 Range/Units 18:50 20:32 WBC (4.8-10.8) X10*3/uL RBC (4.20-5.50) X10*6/uL Hgb (12.0-16.0) g/dl Hct (37.0-47.0) % MCV (80.0-98.0) fL MCH (27.0-33.0) pg MCHC (31.0-35.0) g/dl RDW (11.0-16.0) % Plt Count (160-400) X10*3/uL MPV (9.4-12.3) fL Immature Gran % (Auto) (0.0-0.4) % Neut % (Auto) (45-73) % Lymph % (Auto) (20-40) % Humphreys % (Auto) (2-11) % Eos % (Auto) (0-4) % Baso % (Auto) (0-2) % Lymph # (Auto) (1.2-4.9) X10*3/uL Humphreys # (Auto) (0.1-1.2) X10*3/uL Eos # (Auto) (0.0-0.4) X10*3/uL Baso # (Auto) (0.0-0.2) X10*3/uL Abs Immat Gran (auto) (0.00-0.03) X10*3/uL Absolute Neuts (auto) (2.0-8.3) x10*3/uL Absolute Nucleated RBC (0.0-0.012) X10*3/uL Nucleated RBC % (auto) (0.0-0.2) /100WBC PT (10.0-13.1) SEC INR (0.9-1.1) APTT (26.0-36.4) SEC Sodium 141 (135-145) mmol/L Potassium 4.2 (3.3-5.1) mmol/L Chloride 100 (96-108) mmol/L Carbon Dioxide 27 (22-29) mmol/L Anion Gap 18 (12-20) BUN 11 (9-16) mg/dL Creatinine 0.71 (0.5-1.4) mg/dL Estim Creat Clear Calc 75.3 Estimated GFR > 60 Random Glucose 138 H (60-115) mg/dL Calcium 9.7 (8.4-10.2) mg/dL Total Bilirubin 1.8 H (0.0-1.0) mg/dL AST 142 H (5-31) U/L ALT 167 H (0-31) U/L Alkaline Phosphatase 337 H D (39-117) U/L Troponin I High Sens 4.3 (<3.5-17.0) ng/L Total Protein 7.7 (6.5-8.0) g/dL Albumin 4.1 (3.5-5.0) g/dL Lipase 21 (8-78) U/L COVID-19 (JOCE) (Negative) COVID-19 Clin Com ECG Data Interpretation: Number sinus rhythm. Left bundle branch block. Reticular 64. ID interval 166. QRS 140. QTC 1453- STEMI Discharge Plan Discharge Clinical Impression: Biliary colic Patient Disposition: Admitted As Inpatient
[2022-08-04] MEDS: Lidocaine HCl Viscous 2 % 15 ML SOLUTION MUCOUS MEM (18:54)
[2022-08-04] MEDS: Famotidine/PF 20 MG/2 ML VIAL IVPUSH (18:54)
[2022-08-04] MEDS: ondansetron HCL 4 MG/2 ML VIAL IVPUSH (18:54)
[2022-08-04] MEDS: Morphine Sulfate 4 MG/ML CARTRIDGE IVPUSH (18:54)
[2022-08-04 18:58] LABS: MANUAL DIFF FLAG NO
[2022-08-04 19:05] LABS: Prothrombin Time 11.4 SEC (10.0-13.1)
[2022-08-04 19:08] LABS: Partial Thromboplastin Time 25.6 SEC (26.0-36.4)
[2022-08-04 19:14] LABS: Alanine Aminotransferase 167 U/L (0-31); Albumin Level 4.1 g/dL (3.5-5.0); Alkaline Phosphatase 337 U/L (39-117); Anion Gap 18 (12-20); Aspartate Amino Transferase 142 U/L (5-31); Bilirubin Total 1.8 mg/dL (0.0-1.0); Blood Urea Nitrogen 11 mg/dL (9-16); Calcium 9.7 mg/dL (8.4-10.2); Carbon Dioxide 27 mmol/L (22-29); Chloride 100 mmol/L (96-108); Creatinine Clr Calc Pharmacy 75.3; Estimated Glomerular Filt Rate > 60; Glucose Random 138 mg/dL (60-115); Lipase 21 U/L (8-78); Potassium 4.2 mmol/L (3.3-5.1); Sodium 141 mmol/L (135-145); Total Protein 7.7 g/dL (6.5-8.0)
[2022-08-04 19:16] LABS: COVID-19 Test Negative (Negative)
[2022-08-04 19:21] LABS: Basophils Absolute Auto 0.1 X10*3/uL (0.0-0.2); Basophils Percent Auto 0.5 % (0-2); Eosinophils Percent Auto 0.1 % (0-4); Hematocrit 38.4 % (37.0-47.0); Imm Gran Pct Auto 0.9 % (0.0-0.4); Lymphocytes Absolute Auto 0.9 X10*3/uL (1.2-4.9); Mean Corpuscular HGB Conc 31.3 g/dl (31.0-35.0); Mean Corpuscular Hemoglobin 24.7 pg (27.0-33.0); Mean Platelet Volume 9.5 fL (9.4-12.3); Monocytes Absolute Auto 0.5 X10*3/uL (0.1-1.2); Monocytes Percent Auto 4.3 % (2-11); Neutrophils Absolute Auto 9.5 x10*3/uL (2.0-8.3); Neutrophils Percent Auto 86.2 % (45-73); Platelet Count 363 X10*3/uL (160-400); Red Blood Count 4.86 X10*6/uL (4.20-5.50); Red Cell Distribution Width 15.1 % (11.0-16.0)
[2022-08-04] MEDS: iohexoL 350 MG/ML 100 ML INFUS..BTL IV (19:53)
[2022-08-04 20:59] LABS: Troponin-I High Sensitivity 4.3 ng/L (<3.5-17.0)
--- NOTE | 2022-08-04 22:17 | P.HPHOSP_ITS ---
History of Present Illness Date of Service: 08/04/22 Chief Complaint: Abdominal pain This is a 66-year-old female with a pertinent history of essential hypertension, major depressive disorder, asthma, mixed hyperlipidemia who presents to the emergency department for evaluation of abdominal pain. Patient states the pain started this morning while she was eating crackers. It is located in the right upper quadrant region, progressive, nonradiating, constant and without any relieving factors. It is associated with nausea and nonbloody emesis. Has not able to eat anything since morning due to pain and vomiting. Denies similar complaints in the past. Also has fever and chills. Denies chest discomfort, shortness of breath, palpitations, changes in urinary or bowel habits. In the emergency department, CT scan showed dilated common bile duct and general surgery, Dr. Flood as was consulted who recommended admission for ERCP. Review of Systems Review of Systems: All 13 review of systems are negative except as noted in HPI [facility] Medical History Arthritis Asthma B12 deficiency Back pain Breast cancer Chronic pain Constipation Depression Dizziness Dyslipidemia Elevated TSH Foot pain, bilateral Hair loss Hair loss History of left bundle branch block (LBBB) History of pernicious anemia History of trigger finger History of vitamin D deficiency HTN (hypertension) Lumbar degenerative disc disease Mild aortic stenosis Mild recurrent major depression Moderate persistent asthma Morbid obesity Murmur On beta mel at home Right hip pain Sleep apnea Tinnitus Family History Father Prostate cancer Hypertension Mother Skin cancer Dementia Diabetes Daughter Lupus Maternal Grandmother Diabetes Hypertension Maternal Grandfather No problems noted. Paternal Grandmother No problems noted. Paternal Grandfather Cancer Brother Prostate cancer Surgical History History of dilation and curettage History of lymph node dissection of left axilla History of total left knee replacement (TKR) History of total right knee replacement (TKR) Hx of bilateral cataract extraction Hx of colonoscopy Hx of esophagogastroduodenoscopy S/P lumpectomy, left breast Social History Housing: House Alcohol intake: never Patient Tobacco Use Status: Never used Tobacco e-Cigarette/Vaping Use: Never Used Second Hand Smoke Exposure: No Substance Use Type: Marijuana Advance Directives: No Advance Directives Information Provided: No service: No Current occupational status: disabled Meds Allergies Allergy/AdvReac Type Severity Reaction Status Date / Time latex [LATEX] Allergy Intermediate RASH Verified 07/02/22 14:23 Active Medications: Current Medications Acetaminophen (Acetaminophen 325 Mg Tablet) 650 mg PO Q6H PRN PRN Reason: Pain, Mild (Pain Scale 1-3) Piperacillin Sod/Tazobactam (Sod 4.5 gm/ Sodium Chloride) 100 mls @ 200 mls/hr IV Q6H [facility] Melatonin (Melatonin 3 Mg Tablet) 6 mg PO BEDTIME PRN PRN Reason: Insomnia Morphine Sulfate (Morphine Sulfate 4 Mg/Ml Cartridge) 4 mg IVPUSH Q4H PRN; Protocol PRN Reason: Pain, Severe (Pain Scale 7-10) Ondansetron HCl (Ondansetron Hcl 4 Mg/2 Ml Vial) 4 mg IVPUSH Q8H PRN PRN Reason: Nausea and Vomiting Pharmacy Consult (Consult Rx Perform Med Rec) 1 each MISCELLANE ONCE STA Stop: 08/04/22 22:12 Sodium Chloride (0.9 % Sodium Chloride Flush 3 Ml Syringe) [facility] Medications Medication Instructions Recorded Confirmed Last Taken Type meclizine 25 mg tablet 25 mg PO DAILY PRN Dizziness 08/02/20 05/20/22 Unknown History Physical Exam Vital Signs and Narrative: Vital Signs: Last Vital Signs Temp 98.1 F 08/04/22 18:14 Pulse 60 08/04/22 18:14 Resp 14 08/04/22 18:14 BP 146/54 H 08/04/22 18:14 Pulse Ox 98 08/04/22 18:14 O2 Del Method 08/04/22 18:14 BMI result Body Mass Index 41.2 Elderly female lying in bed in mild distress Neck supple, no JVD Regular rate and rhythm, S1-S2 heard Regular breath sounds bilaterally, no wheezing or crackles appreciated Abdomen with significant right upper quadrant tenderness with mild palpation, no guarding, no rigidity Patient is awake, alert and oriented to self, place, time and person ; no focal motor deficit Psych: Normal mood No pedal edema Results Labs CBC and Chem 7: 08/04/22 18:49 08/04/22 18:50 Labs: Laboratory Results - last 24 hr 08/04/22 08/04/22 08/04/22 18:49 18:49 18:49 MCV 79.0 L MCH 24.7 L MCHC 31.3 RDW 15.1 Plt Count 363 D MPV 9.5 Immature Gran % (Auto) 0.9 H Neut % (Auto) 86.2 H Lymph % (Auto) 8.0 L [place] % (Auto) 4.3 Eos % (Auto) 0.1 Baso % (Auto) 0.5 Lymph # (Auto) 0.9 L [place] # (Auto) 0.5 Eos # (Auto) 0.0 Baso # (Auto) 0.1 Abs Immat Gran (auto) 0.10 H Absolute Neuts (auto) 9.5 H Absolute Nucleated RBC 0.000 Nucleated RBC % (auto) 0.0 PT 11.4 INR 1.0 APTT 25.6 L Anion Gap Estim Creat Clear Calc Estimated GFR Random Glucose Calcium Total Bilirubin AST ALT Alkaline Phosphatase Troponin I High Sens Total Protein Albumin Lipase COVID-19 (JOCE) Negative COVID-19 Clin Com See Note 08/04/22 08/04/22 18:50 20:32 MCV MCH MCHC RDW Plt Count MPV Immature Gran % (Auto) Neut % (Auto) Lymph % (Auto) Sanborn % (Auto) Eos % (Auto) Baso % (Auto) Lymph # (Auto) [place] # (Auto) Eos # (Auto) Baso # (Auto) Abs Immat Gran (auto) Absolute Neuts (auto) Absolute Nucleated RBC Nucleated RBC % (auto) PT INR APTT Anion Gap 18 Estim Creat Clear Calc 75.3 Estimated GFR > 60 Random Glucose 138 H Calcium 9.7 Total Bilirubin 1.8 H AST 142 H ALT 167 H Alkaline Phosphatase 337 H D Troponin I High Sens 4.3 Total Protein 7.7 Albumin 4.1 Lipase 21 COVID-19 (JOCE) COVID-19 Clin Com Imaging Radiologist's Impressions: Impressions Abdomen/Pelvis CT 08/04/22 20:00 IMPRESSION: Interval development of biliary ductal dilatation. Correlate with LFTs. No obstructing source demonstrated. Further assessment with ERCP or MRCP recommended. Fleischner guidelines were followed. Assessment and Plan (1) Abdominal pain: Status: Acute (2) Common bile duct dilation: Status: Acute (3) Depression: Status: Acute (4) Dyslipidemia: Status: Acute (5) HTN (hypertension): Status: Acute (6) Asthma: Qualifiers: Asthma severity: mild Asthma persistence: persistent Asthma complication type: uncomplicated Qualified Code(s): J45.30 - Mild persistent asthma, uncomplicated Status: Acute Plan This is a 66-year-old female with a pertinent history of essential hypertension, major depressive disorder, asthma, mixed hyperlipidemia who presents to the emergency department for evaluation of abdominal pain. #. Right upper quadrant abdominal pain with biliary ductal dilatation -general surgery, Dr. Flood was consulted from the ER who recommended admission for ERCP. Consulted Dr. Robles, gastroenterology. Symptomatic control with IV opioids p.r.n. and IV Zofran p.r.n. Raised LFTs. Will treat empirically with IV Zosyn #. Major depressive disorder -mood currently stable. No suicidal or homicidal ideations. Continue home mood stabilizers when no longer NPO #. Essential hypertension -resume antihypertensives when able to take p.o. intake DVT prophylaxis: Holding Lovenox until surgical evaluation Full code Diet: NPO in anticipation of procedure Patient will require two night minimum hospital stay for need for IV pain control and IV antibiotics. Surgical evaluation pending. Quality Stroke Does the patient have a stroke diagnosis?: No VTE Prior VTE?: No VTE Risk Level:: Medical - moderate - high VTE Device Contraindication: Treatment Not Indicated VTE Drug Contraindication: Treatment Not Indicated
[2022-08-04 22:18] VITALS: BP 146/61; PULSE 72; RESP 16; TEMP 36.7; O2SAT 91
--- NOTE | 2022-08-04 22:26 | PC.NURSE ---
Pt ambulated to the bathroom with assistance. Unable to void at this time.
[2022-08-04] MEDS: Piperacillin Sodium/Tazobactam 4.5 GM in 0.9 % Sodium Chloride 100 ML IV (22:47)
[2022-08-05 00:40] VITALS: BP 133/44; PULSE 64; RESP 18; O2SAT 96
--- NOTE | 2022-08-05 01:10 | P.CONGS_ITS ---
History of Present Illness Consult details Consult date: 08/05/22 Narrative: 66-year-old female, with morbid obesity, Aortic stenosis, because of item normal CT scan. She apparently had abdominal pain, mostly in the epigastric area she says, starting this morning around 10:00 o'clock. He describes having episodes of vomiting as well. She says she had pain until she came to the emergency room. She says that the pain seems to have resolved at this time. She has had no further vomiting here in the ER. She denies any diarrhea or constipation. Review of Systems Constitutional: Constitutional: Denies chills and Denies fever(s) Cardiovascular: Cardiovascular: Denies chest pain, Denies dyspnea and Reports dyspnea on exertion Respiratory: Respiratory: Denies cough, Denies dyspnea and Reports dyspnea on exertion Gastrointestinal: Gastrointestinal: Denies hematochezia and Denies change in bowel habits Genitourinary: Genitourinary: Denies hematuria Musculoskeletal: Musculoskeletal: Denies back pain and Denies limited range of motion Neurologic: Denies focal weakness and Denies convulsions Psychiatric: Psychiatric: Denies depression and Denies mood swings PMFSH Past Medical History Medical History Arthritis Asthma B12 deficiency Back pain Breast cancer Chronic pain Constipation Depression Dizziness Dyslipidemia Elevated TSH Foot pain, bilateral Hair loss Hair loss History of left bundle branch block (LBBB) History of pernicious anemia History of trigger finger History of vitamin D deficiency HTN (hypertension) Lumbar degenerative disc disease Mild aortic stenosis Mild recurrent major depression Moderate persistent asthma Morbid obesity Murmur On beta mel at home Right hip pain Sleep apnea Tinnitus Family History Family History Father Prostate cancer Hypertension Mother Skin cancer Dementia Diabetes Daughter Lupus Maternal Grandmother Diabetes Hypertension Maternal Grandfather No problems noted. Paternal Grandmother No problems noted. Paternal Grandfather Cancer Brother Prostate cancer Surgical History Surgical History History of dilation and curettage History of lymph node dissection of left axilla History of total left knee replacement (TKR) History of total right knee replacement (TKR) Hx of bilateral cataract extraction Hx of colonoscopy Hx of esophagogastroduodenoscopy S/P lumpectomy, left breast Social History Social History Household Members: Spouse and Other Household Members Other:: Graddaughter Housing: House Do you presently have visiting nurse or other home services: Yes (Granddaughter is home health hygiene assistant) Alcohol intake: never Patient Tobacco Use Status: Never used Tobacco e-Cigarette/Vaping Use: Never Used Second Hand Smoke Exposure: No Substance Use Type: Marijuana service: No Current occupational status: disabled Meds Allergies Allergy/AdvReac Type Severity Reaction Status Date / Time latex [LATEX] Allergy Intermediate RASH Verified 07/02/22 14:23 Active Medications: Current Medications Acetaminophen (Acetaminophen 325 Mg Tablet) 650 mg PO Q6H PRN PRN Reason: Pain, Mild (Pain Scale 1-3) Piperacillin Sod/Tazobactam (Sod 4.5 gm/ Sodium Chloride) 100 mls @ 200 mls/hr IV Q6H [facility] Last Infusion: 08/04/22 23:34 Dose: Infused Melatonin (Melatonin 3 Mg Tablet) 6 mg PO BEDTIME PRN PRN Reason: Insomnia Morphine Sulfate (Morphine Sulfate 4 Mg/Ml Cartridge) 4 mg IVPUSH Q4H PRN; Protocol PRN Reason: Pain, Severe (Pain Scale 7-10) Ondansetron HCl (Ondansetron Hcl 4 Mg/2 Ml Vial) 4 mg IVPUSH Q8H PRN PRN Reason: Nausea and Vomiting Pharmacy Consult (Consult Rx Perform Med Rec) 1 each MISCELLANE ONCE STA Stop: 08/04/22 22:12 Sodium Chloride (0.9 % Sodium Chloride Flush 3 Ml Syringe) 3 ml IVFLUSH QSHIFT [facility] Last Admin: 08/04/22 23:26 Dose: Not Given Home Medications Medication Instructions Recorded Confirmed Last Taken Type meclizine 25 mg tablet 25 mg PO DAILY PRN Dizziness 08/02/20 08/05/22 Unknown History escitalopram oxalate 10 mg tablet 1 tab PO QAM 08/05/22 08/05/22 Unknown History Physical Exam Vital Signs: Vital Signs: Last Vital Signs Temp 98.1 F 08/04/22 22:18 Pulse 64 08/05/22 00:40 Resp 18 08/05/22 00:40 BP 133/44 L 08/05/22 00:40 Pulse Ox 96 08/05/22 00:40 O2 Del Method 08/05/22 00:40 BMI result Body Mass Index 41.2 Const: Other: Morbidly obese General: comfortable and no acute distress Orientat ion/consciousness: patient oriented x3 Neck: Neck: Yes no lymphadenopathy Resp: Auscultation: clear to auscultation bilaterally Cardio: Rhythm: regular rhythm GI: Other: currently does not have any tenderness, no guarding, no rebound, no Diggs's sign Palpation (GI): Soft to palpation, nontender and no guarding Neuro: General: patient oriented x3 Results Labs Result diagrams: 08/07/22 05:11 08/07/22 05:11 Labs: Abnormal lab results 08/04/22 08/04/22 08/04/22 Range/Units 18:49 18:49 18:50 WBC 11.0 H (4.8-10.8) X10*3/uL MCV 79.0 L (80.0-98.0) fL MCH 24.7 L (27.0-33.0) pg Immature Gran % (Auto) 0.9 H (0.0-0.4) % Neut % (Auto) 86.2 H (45-73) % Lymph % (Auto) 8.0 L (20-40) % Lymph # (Auto) 0.9 L (1.2-4.9) X10*3/uL Abs Immat Gran (auto) 0.10 H (0.00-0.03) X10*3/uL Absolute Neuts (auto) 9.5 H (2.0-8.3) x10*3/uL APTT 25.6 L (26.0-36.4) SEC Random Glucose 138 H (60-115) mg/dL Total Bilirubin 1.8 H (0.0-1.0) mg/dL AST 142 H (5-31) U/L ALT 167 H (0-31) U/L Alkaline Phosphatase 337 H D (39-117) U/L Short CBC 08/04/22 Range/Units 18:49 WBC 11.0 H (4.8-10.8) X10*3/uL Hgb 12.0 (12.0-16.0) g/dl Hct 38.4 (37.0-47.0) % Plt Count 363 D (160-400) X10*3/uL BMP 08/04/22 18:50 Sodium 141 Potassium 4.2 Chloride 100 Carbon Dioxide 27 BUN 11 Creatinine 0.71 Calcium 9.7 Liver Function 08/04/22 Range/Units 18:50 Total Bilirubin 1.8 H (0.0-1.0) mg/dL AST 142 H (5-31) U/L ALT 167 H (0-31) U/L Alkaline Phosphatase 337 H D (39-117) U/L Albumin 4.1 (3.5-5.0) g/dL All other labs normal. Imaging Additional studies: Laboratory Results WBC 11.0 X10*3/uL (4.8-10.8) H 08/04/22 18:49 RBC 4.86 X10*6/uL (4.20-5.50) 08/04/22 18:49 Hgb 12.0 g/dl (12.0-16.0) 08/04/22 18:49 Hct 38.4 % (37.0-47.0) 08/04/22 18:49 MCV 79.0 fL (80.0-98.0) L 08/04/22 18:49 MCH 24.7 pg (27.0-33.0) L 08/04/22 18:49 MCHC 31.3 g/dl (31.0-35.0) 08/04/22 18:49 RDW 15.1 % (11.0-16.0) 08/04/22 18:49 Plt Count 363 X10*3/uL (160-400) D 08/04/22 18:49 MPV 9.5 fL (9.4-12.3) 08/04/22 18:49 Immature Gran % (Auto) 0.9 % (0.0-0.4) H 08/04/22 18:49 Neut % (Auto) 86.2 % (45-73) H 08/04/22 18:49 Lymph % (Auto) 8.0 % (20-40) L 08/04/22 18:49 Dawson % (Auto) 4.3 % (2-11) 08/04/22 18:49 Eos % (Auto) 0.1 % (0-4) 08/04/22 18:49 Baso % (Auto) 0.5 % (0-2) 08/04/22 18:49 Lymph # (Auto) 0.9 X10*3/uL (1.2-4.9) L 08/04/22 18:49 Dawson # (Auto) 0.5 X10*3/uL (0.1-1.2) 08/04/22 18:49 Eos # (Auto) 0.0 X10*3/uL (0.0-0.4) 08/04/22 18:49 Baso # (Auto) 0.1 X10*3/uL (0.0-0.2) 08/04/22 18:49 Abs Immat Gran (auto) 0.10 X10*3/uL (0.00-0.03) H 08/04/22 18:49 Absolute Neuts (auto) 9.5 x10*3/uL (2.0-8.3) H 08/04/22 18:49 Absolute Nucleated RBC 0.000 X10*3/uL (0.0-0.012) 08/04/22 18:49 Nucleated RBC % (auto) 0.0 /100WBC (0.0-0.2) 08/04/22 18:49 PT 11.4 SEC (10.0-13.1) 08/04/22 18:49 INR 1.0 (0.9-1.1) 08/04/22 18:49 APTT 25.6 SEC (26.0-36.4) L 08/04/22 18:49 Sodium 141 mmol/L (135-145) 08/04/22 18:50 Potassium 4.2 mmol/L (3.3-5.1) 08/04/22 18:50 Chloride 100 mmol/L (96-108) 08/04/22 18:50 Carbon Dioxide 27 mmol/L (22-29) 08/04/22 18:50 Anion Gap 18 (12-20) 08/04/22 18:50 BUN 11 mg/dL (9-16) 08/04/22 18:50 Creatinine 0.71 mg/dL (0.5-1.4) 08/04/22 18:50 Estim Creat Clear Calc 75.3 08/04/22 18:50 Estimated GFR > 60 08/04/22 18:50 Random Glucose 138 mg/dL (60-115) H 08/04/22 18:50 Calcium 9.7 mg/dL (8.4-10.2) 08/04/22 18:50 Total Bilirubin 1.8 mg/dL (0.0-1.0) H 08/04/22 18:50 AST 142 U/L (5-31) H 08/04/22 18:50 ALT 167 U/L (0-31) H 08/04/22 18:50 Alkaline Phosphatase 337 U/L (39-117) H D 08/04/22 18:50 Troponin I High Sens 4.3 ng/L (<3.5-17.0) 08/04/22 20:32 Total Protein 7.7 g/dL (6.5-8.0) 08/04/22 18:50 Albumin 4.1 g/dL (3.5-5.0) 08/04/22 18:50 Lipase 21 U/L (8-78) 08/04/22 18:50 COVID-19 (JOCE) Negative (Negative) 08/04/22 18:49 COVID-19 Clin Com See Note 08/04/22 18:49 Impressions Abdomen/Pelvis CT 08/04/22 20:00 IMPRESSION: Interval development of biliary ductal dilatation. Correlate with LFTs. No obstructing source demonstrated. Further assessment with ERCP or MRCP recommended. Fleischner guidelines were followed. Abdomen Ultrasound 08/04/22 22:38 IMPRESSION: Distended tender gallbladder with mobile gallstones without pericholecystic fluid or significant wall thickening. There is intrahepatic biliary ductal dilatation, similar to that seen on the CT scan. Assessment and Plan (1) Common bile duct dilation: Status: Acute She had epigastric pain all day along with vomiting. Her CAT scan shows dilated common bile duct. There is no obvious ductal stone on imaging. I recommend doing an MRCP. Gastroenterology should be consulted. Her liver function tests should be followed as well because of the elevated bilirubin and the dilated common bile duct suggestive of biliary obstruction. She currently does not have any significant pain or tenderness. She feels improved at this time on examination. I will follow along closely while she is in the hospital. Procedures Date of Service Date of Service: 08/05/22
--- NOTE | 2022-08-05 02:34 | PC.NURSE ---
Pt sleeping. Breaths even and unlabored with equal chest rises. No apparent distress noted. Will continue to monitor.
[2022-08-05] MEDS: Piperacillin Sodium/Tazobactam 4.5 GM in 0.9 % Sodium Chloride 100 ML IV ×3 (05:35→18:04)
[2022-08-05 06:07] LABS: MANUAL DIFF FLAG NO
[2022-08-05 06:09] LABS: Basophils Percent Auto 0.2 % (0-2); Hematocrit 33.7 % (37.0-47.0); Hemoglobin 10.6 g/dl (12.0-16.0); Imm Gran Abs Auto 0.06 X10*3/uL (0.00-0.03); Imm Gran Pct Auto 0.6 % (0.0-0.4); Lymphocytes Percent Auto 10.4 % (20-40); Mean Corpuscular HGB Conc 31.5 g/dl (31.0-35.0); Mean Corpuscular Hemoglobin 24.5 pg (27.0-33.0); Mean Corpuscular Volume 77.8 fL (80.0-98.0); Mean Platelet Volume 9.2 fL (9.4-12.3); Monocytes Absolute Auto 0.6 X10*3/uL (0.1-1.2); Monocytes Percent Auto 6.5 % (2-11); Neutrophils Percent Auto 82.3 % (45-73); Platelet Count 341 X10*3/uL (160-400); Red Blood Count 4.33 X10*6/uL (4.20-5.50); White Blood Count 9.7 X10*3/uL (4.8-10.8)
[2022-08-05 06:33] LABS: Anion Gap 18 (12-20); Blood Urea Nitrogen 13 mg/dL (9-16); Carbon Dioxide 25 mmol/L (22-29); Chloride 101 mmol/L (96-108); Creatinine Clr Calc Pharmacy 74.3; Estimated Glomerular Filt Rate > 60; Glucose Random 126 mg/dL (60-115); Potassium 4.3 mmol/L (3.3-5.1); Sodium 140 mmol/L (135-145)
[2022-08-05 08:04] LABS: Alanine Aminotransferase 226 U/L (0-31); Albumin Level 3.7 g/dL (3.5-5.0); Alkaline Phosphatase 321 U/L (39-117); Aspartate Amino Transferase 205 U/L (5-31); Bilirubin Direct 1.6 mg/dL (0.0-0.5); Bilirubin Total 2.9 mg/dL (0.0-1.0); Total Protein 6.8 g/dL (6.5-8.0)
--- NOTE | 2022-08-05 08:14 | PM.EVENT ---
Event Note Date of Service: 08/05/22 Event Note: GI pt seen and examined, consult dictated. repeat lfts pending, mri ordered discussed ERCP with patient including risks and benefits.
[2022-08-05] MEDS: 0.9 % Sodium Chloride Flush 3 ML SYRINGE IVFLUSH (08:26)
--- NOTE | 2022-08-05 08:28 | PC.NURSE ---
pt alert and oriented, skin appropriate for ethnicity, respirations even and unlabored, pt denies pain and nausea at this time
--- NOTE | 2022-08-05 08:59 | PHA.MEDREC ---
Pharmacy Consult ? Medication Reconciliation Pharmacy has completed the medication reconciliation.
[2022-08-05 10:07] VITALS: BP 129/76; PULSE 65; RESP 20; O2SAT 92
--- NOTE | 2022-08-05 10:12 | P.PNIM_ITS ---
Subjective Subjective Date of Service: 08/05/22 Interval History: ongoing RUQ pain nausea no vomiting chills for past week no hx biliary colic Review of Systems Review of Systems: Yes all other systems are reviewed and are negative Physical Exam Vital Signs: Vital Signs: Last Vital Signs Temp 98.1 F 08/04/22 22:18 Pulse 65 08/05/22 10:07 Resp 20 08/05/22 10:07 BP 133/44 L 08/05/22 00:40 Pulse Ox 92 08/05/22 10:07 O2 Del Method 08/05/22 10:07 BMI result Body Mass Index 41.2 Gen: in no acute distress HEENT: sclera anicteric, moist mucus membranes Neck: supple Lungs: clear to auscultation bilaterally Heart: regular rate and rhythm, no murmurs Abd: soft, tender RUQ, no rebound/guarding, non-distended, morbidly obese Ext: no edema Skin: warm/well-perfused, no jaundice Neuro: alert and oriented x3, no focal findings Psych: appropriate affect Objective Data Active Medications Acetaminophen (Acetaminophen 325 Mg Tablet) 650 mg PO Q6H PRN PRN Reason: Pain, Mild (Pain Scale 1-3) Albuterol Sulfate (Albuterol Sulfate (0.083%) 2.5 Mg/3 Ml Vial.Neb) 2.5 mg INHALE Q6H PRN PRN Reason: bronchospasm Atorvastatin Calcium (Atorvastatin Calcium 20 Mg Tablet) 20 mg PO DAILY [facility] Cyanocobalamin (Cyanocobalamin (Vitamin B-12) 1,000 Mcg Tablet) 1,000 mcg PO DAILY [facility] Fluoxetine HCl (Fluoxetine Hcl 20 Mg Capsule) 40 mg PO DAILY [facility] Fluticasone/Vilanterol (Fluticasone/Vilanterol 200/25 Blst.W.Dev) 1 puff INHALE RDAILY [facility] Last Admin: 08/05/22 09:33 Dose: Not Given Documented By: MING Non-Admin Reason: Med Not Available Piperacillin Sod/Tazobactam (Sod 4.5 gm/ Sodium Chloride) 100 mls @ 200 mls/hr IV Q6H [facility] Last Infusion: 08/05/22 08:25 Dose: 0 mls/hr Documented By: BARBARA Melatonin (Melatonin 3 Mg Tablet) 6 mg PO BEDTIME PRN PRN Reason: Insomnia Metoprolol Succinate (Metoprolol Succinate Er 25 Mg Tab.Er.24h) 25 mg PO DAILY [facility]; Protocol Morphine Sulfate (Morphine Sulfate 4 Mg/Ml Cartridge) 4 mg IVPUSH Q4H PRN; Protocol PRN Reason: Pain, Severe (Pain Scale 7-10) Ondansetron HCl (Ondansetron Hcl 4 Mg/2 Ml Vial) 4 mg IVPUSH Q8H PRN PRN Reason: Nausea and Vomiting Sodium Chloride (0.9 % Sodium Chloride Flush 3 Ml Syringe) 3 ml IVFLUSH QSHIFT [facility] Last Admin: 08/05/22 08:26 Dose: 3 ml Documented By: BARBARA Vitamin D (Cholecalciferol (Vitamin D3) 25 Mcg Tablet) 50 mcg PO DAILY [facility] Labs CBC & Chem 7: 08/05/22 05:45 08/05/22 05:45 Labs: Laboratory Results - last 24 hr 08/04/22 08/04/22 08/04/22 18:49 18:49 18:49 MCV 79.0 L MCH 24.7 L MCHC 31.3 RDW 15.1 Plt Count 363 D MPV 9.5 Immature Gran % (Auto) 0.9 H Neut % (Auto) 86.2 H Lymph % (Auto) 8.0 L [place] % (Auto) 4.3 Eos % (Auto) 0.1 Baso % (Auto) 0.5 Lymph # (Auto) 0.9 L [place] # (Auto) 0.5 Eos # (Auto) 0.0 Baso # (Auto) 0.1 Abs Immat Gran (auto) 0.10 H Absolute Neuts (auto) 9.5 H Absolute Nucleated RBC 0.000 Nucleated RBC % (auto) 0.0 PT 11.4 INR 1.0 APTT 25.6 L Anion Gap Estim Creat Clear Calc Estimated GFR Random Glucose Calcium Total Bilirubin Direct Bilirubin AST ALT Alkaline Phosphatase Troponin I High Sens Total Protein Albumin Lipase COVID-19 (JOCE) Negative COVID-19 Clin Com See Note 08/04/22 08/04/22 08/05/22 18:50 20:32 05:45 MCV 77.8 L MCH 24.5 L MCHC 31.5 RDW 15.0 Plt Count 341 MPV 9.2 L Immature Gran % (Auto) 0.6 H Neut % (Auto) 82.3 H Lymph % (Auto) 10.4 L [place] % (Auto) 6.5 Eos % (Auto) 0.0 Baso % (Auto) 0.2 Lymph # (Auto) 1.0 L [place] # (Auto) 0.6 Eos # (Auto) 0.0 Baso # (Auto) 0.0 Abs Immat Gran (auto) 0.06 H Absolute Neuts (auto) 8.0 Absolute Nucleated RBC 0.000 Nucleated RBC % (auto) 0.0 PT INR APTT Anion Gap 18 Estim Creat Clear Calc 75.3 Estimated GFR > 60 Random Glucose 138 H Calcium 9.7 Total Bilirubin 1.8 H Direct Bilirubin AST 142 H ALT 167 H Alkaline Phosphatase 337 H D Troponin I High Sens 4.3 Total Protein 7.7 Albumin 4.1 Lipase 21 COVID-19 (JOCE) COVID-19 Clin Com 08/05/22 05:45 MCV MCH MCHC RDW Plt Count MPV Immature Gran % (Auto) Neut % (Auto) Lymph % (Auto) [place] % (Auto) Eos % (Auto) Baso % (Auto) Lymph # (Auto) [place] # (Auto) Eos # (Auto) Baso # (Auto) Abs Immat Gran (auto) Absolute Neuts (auto) Absolute Nucleated RBC Nucleated RBC % (auto) PT INR APTT Anion Gap 18 Estim Creat Clear Calc 74.3 Estimated GFR > 60 Random Glucose 126 H Calcium 9.0 D Total Bilirubin 2.9 H Direct Bilirubin 1.6 H AST 205 H ALT 226 H Alkaline Phosphatase 321 H Troponin I High Sens Total Protein 6.8 Albumin 3.7 Lipase COVID-19 (JOCE) COVID-19 Clin Com Assessment and Plan (1) Common bile duct dilation: Status: Acute Plan d#2 66yo F with HTN, morbid obesity, HLD, asthma, MDD presenting with RUQ pain and found to have dilation of the CBD + GB distension with gallstones concerning for choledocholithiasis # CBD dilation - GI + Gen Surg consulting, MRCP pending, may require ERCP then lap james, continue opioids + ondansetron prn, monitor LFTs, continue pip/familia d#2 + send BCx # HTN - continue metoprolol, hold furosemide # mod per asthma, not in acute exac - continue Breo, prn albuterol # MDD - continue fluoxetine # VTE ppx: SCDs In my clinical judgment, the patient requires continued hospitalization for the following reasons: endoscopy + surgery Quality Stroke Does the patient have a stroke diagnosis?: No VTE Prior VTE?: No VTE Risk Level:: Medical - moderate - high VTE Device Contraindication: Treatment Not Indicated VTE Drug Contraindication: Treatment Not Indicated
[2022-08-05] MEDS: Cholecalciferol (Vitamin D3) 25 MCG TABLET 50 MCG PO (10:15)
[2022-08-05] MEDS: FLUoxetine HCl 20 MG CAPSULE 40 MG PO (10:15)
[2022-08-05] MEDS: Cyanocobalamin (Vitamin B-12) 1,000 MCG TABLET 1000 MCG PO (10:15)
[2022-08-05] MEDS: Metoprolol Succinate ER 25 MG TAB.ER.24H PO (10:16)
[2022-08-05] MEDS: Atorvastatin Calcium 20 MG TABLET PO (10:16)
--- NOTE | 2022-08-05 10:24 | PC.NURSE ---
checked pt's vs and pt is currently sating at 90-92% om room air, pt does state that she is slightly sob, ls diminished on the lower bases, pt put on oxygen at 1L and sating at 95%
[2022-08-05 10:35] LABS: C Reactive Protein 7.86 mg/dL (< or = 0.50)
[2022-08-05 10:48] LABS: Alanine Aminotransferase 255 U/L (0-31); Albumin Level 3.7 g/dL (3.5-5.0); Alkaline Phosphatase 343 U/L (39-117); Aspartate Amino Transferase 235 U/L (5-31); Bilirubin Direct 2.3 mg/dL (0.0-0.5); Bilirubin Total 3.5 mg/dL (0.0-1.0); Total Protein 6.9 g/dL (6.5-8.0)
[2022-08-05] MEDS: Lactated Ringers 1,000 ML 100 ML IVCONT ×2 (10:49→20:43)
--- NOTE | 2022-08-05 11:19 | PC.NURSE ---
TO MRI @ THIS TIME
--- NOTE | 2022-08-05 11:29 | PC.NURSE ---
pt of to mri
--- NOTE | 2022-08-05 11:43 | CONS_ITS ---
DATE OF SERVICE: 08/05/2022 REFERRING PHYSICIAN: Juany Arreguin MD REASON FOR CONSULTATION: Elevated liver function tests and right upper quadrant pain. HISTORY OF PRESENT ILLNESS: The patient is a pleasant 66-year-old woman who presented to the emergency room last night with complaints of abdominal pain. She reports about 1 week of lower back pain for which she was given oxycodone by her primary care provider yesterday morning after breakfast. She developed right upper quadrant discomfort, which became continuous and was associated with nausea and nonbloody emesis. There was no radiation of the pain and no other precipitating or relieving factors. The quality of the pain was sharp. She was evaluated in the emergency department last night with laboratory studies documenting elevation of her liver function tests with a total bilirubin of 1.8 and transaminases in the mid 100s. Alkaline phosphatase was around 330. Imaging studies were obtained including ultrasound and CT scanning, which are reviewed. They show gallstones and a positive Diggs sign. The common bile duct was 7 mm on ultrasound and some intrahepatic biliary ductal dilation was also seen. The patient currently states she has no pain. She has had no further vomiting. PAST MEDICAL HISTORY: 1. Hypertension. 2. Anxiety/depression. 3. Hyperlipidemia. 4. Asthma. 5. Breast cancer, status post lumpectomy and chemoradiation. 6. Colon polyps. 7. Elevated BMI. 8. Back pain. CURRENT MEDICATIONS: Her current medication list is reviewed in the chart. ALLERGIES: LATEX. FAMILY HISTORY: This is reviewed with the patient and is noncontributory. SOCIAL HISTORY: There is no current substance abuse. She does use marijuana. REVIEW OF SYSTEMS: SKIN: No pruritus. HEENT: Negative. CARDIOPULMONARY: No shortness of breath or chest pain. GASTROINTESTINAL: As above. GENITOURINARY: Negative. NEUROPSYCHIATRIC: Negative. PHYSICAL EXAMINATION: GENERAL: Shows a pleasant female, lying in bed. VITAL SIGNS: Reviewed in electronic medical record and are stable. White blood cell count is 9.7 this morning, down from 11. Repeat liver function tests are pending. CT scan and ultrasound were reviewed. IMPRESSION: Right upper quadrant pain with elevated liver function tests and history of gallstones. Her elevated liver function tests could be related to cholecystitis. She did have a positive Diggs sign on ultrasound imaging. Currently, she is pain free and feels well. Limited evaluation of her common bile duct with CT and ultrasound has shown no common bile duct stones, but I would recommend obtaining MRI imaging for further evaluation. I discussed ERCP with the patient including risks and benefits of the procedure. She understands these and agrees to proceed if necessary. We will await the results of further testing. Thanks for asking me to see her. I will follow her in the hospital with you. MD CHUY May/ROCCO / [id number]
--- NOTE | 2022-08-05 11:47 | MHC.CM.PN ---
CM ATTEMPTED TO MEET W/PT HOWEVER PT NOT IN ROOM, PER NSG PT AT MRI, PT'S /S.O. AT BEDSIDE AND REQUESTED CM RETURN WHEN PT IS BACK IN ROOM, CM TO REVISIT.
[2022-08-05 11:57] VITALS: BP 137/60; PULSE 58; RESP 20; TEMP 36.9; O2SAT 96
--- NOTE | 2022-08-05 12:37 | MHC.CM.PN ---
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 D/C PLAN: HOME W/RESUMP OF ALTRANAIS DAILY VNA AND DAILY HEALTH AND HUMAN PERFORMANCE PROFESSOR HRS W/FAMILY FOR TRANSPORT
--- NOTE | 2022-08-05 12:48 | PM.EVENT ---
Event Note Date of Service: 08/05/22 Event Note: GI mrcp reviewed with Dr Juarez no definite stone seen lft's noted continue to monitor. hold off on ercp for now.
--- NOTE | 2022-08-05 12:49 | P.PNGS_ITS ---
Subjective Subjective Date of Service: 08/05/22 Interval history: Describes epigastric pain Some nausea Physical Exam Vital Signs: Vital Signs: Last Vital Signs Temp 98.4 F 08/05/22 11:57 Pulse 58 08/05/22 11:57 Resp 20 08/05/22 11:57 BP 137/60 08/05/22 11:57 Pulse Ox 96 08/05/22 11:57 O2 Del Method 08/05/22 11:57 O2 Flow Rate 1 08/05/22 11:57 BMI result Body Mass Index 41.2 Const: General: no acute distress Resp: Effort & Inspection: normal respiratory effort Cardio: Rate: regular rate GI: Other: Mild tenderness epigastric area Inspection: Yes obesity Palpation (GI): Soft to palpation and not firm Objective Data Active Medications Acetaminophen (Acetaminophen 325 Mg Tablet) 650 mg PO Q6H PRN PRN Reason: Pain, Mild (Pain Scale 1-3) Albuterol Sulfate (Albuterol Sulfate (0.083%) 2.5 Mg/3 Ml Vial.Neb) 2.5 mg INHALE Q6H PRN PRN Reason: bronchospasm Atorvastatin Calcium (Atorvastatin Calcium 20 Mg Tablet) 20 mg PO DAILY [facility] Last Admin: 08/05/22 10:16 Dose: 20 mg Documented By: BARBARA Cyanocobalamin (Cyanocobalamin (Vitamin B-12) 1,000 Mcg Tablet) 1,000 mcg PO DAILY [facility] Last Admin: 08/05/22 10:15 Dose: 1,000 mcg Documented By: BARBARA Fluoxetine HCl (Fluoxetine Hcl 20 Mg Capsule) 40 mg PO DAILY [facility] Last Admin: 08/05/22 10:15 Dose: 40 mg Documented By: BARBARA Fluticasone/Vilanterol (Fluticasone/Vilanterol 200/25 Blst.W.Dev) 1 puff INHALE RDAILY [facility] Last Admin: 08/05/22 09:33 Dose: Not Given Documented By: MING Non-Admin Reason: Med Not Available Piperacillin Sod/Tazobactam (Sod 4.5 gm/ Sodium Chloride) 100 mls @ 200 mls/hr IV Q6H [facility] Last Admin: 08/05/22 12:26 Dose: 200 mls/hr Documented By: BARBARA Lactated Ringer's (Lr) 1,000 mls @ 100 mls/hr IVCONT .Q10H [facility] Last Admin: 08/05/22 10:49 Dose: 100 mls/hr Documented By: BARBARA Melatonin (Melatonin 3 Mg Tablet) 6 mg PO BEDTIME PRN PRN Reason: Insomnia Metoprolol Succinate (Metoprolol Succinate Er 25 Mg Tab.Er.24h) 25 mg PO DAILY [facility]; Protocol Last Admin: 08/05/22 10:16 Dose: 25 mg Documented By: BARBARA Morphine Sulfate (Morphine Sulfate 4 Mg/Ml Cartridge) 4 mg IVPUSH Q4H PRN; Protocol PRN Reason: Pain, Severe (Pain Scale 7-10) Ondansetron HCl (Ondansetron Hcl 4 Mg/2 Ml Vial) 4 mg IVPUSH Q8H PRN PRN Reason: Nausea and Vomiting Sodium Chloride (0.9 % Sodium Chloride Flush 3 Ml Syringe) 3 ml IVFLUSH QSHIFT [facility] Last Admin: 08/05/22 08:26 Dose: 3 ml Documented By: BARBARA Vitamin D (Cholecalciferol (Vitamin D3) 25 Mcg Tablet) 50 mcg PO DAILY [facility] Last Admin: 08/05/22 10:15 Dose: 50 mcg Documented By: BARBARA Labs CBC & Chem 7: 08/05/22 05:45 08/05/22 05:45 Labs: Laboratory Results - last 24 hr 08/04/22 08/04/22 08/04/22 18:49 18:49 18:49 MCV 79.0 L MCH 24.7 L MCHC 31.3 RDW 15.1 Plt Count 363 D MPV 9.5 Immature Gran % (Auto) 0.9 H Neut % (Auto) 86.2 H Lymph % (Auto) 8.0 L [place] % (Auto) 4.3 Eos % (Auto) 0.1 Baso % (Auto) 0.5 Lymph # (Auto) 0.9 L [place] # (Auto) 0.5 Eos # (Auto) 0.0 Baso # (Auto) 0.1 Abs Immat Gran (auto) 0.10 H Absolute Neuts (auto) 9.5 H Absolute Nucleated RBC 0.000 Nucleated RBC % (auto) 0.0 PT 11.4 INR 1.0 APTT 25.6 L Anion Gap Estim Creat Clear Calc Estimated GFR Random Glucose Calcium Total Bilirubin Direct Bilirubin AST ALT Alkaline Phosphatase Troponin I High Sens C-Reactive Protein Total Protein Albumin Lipase COVID-19 ([facility]OCE) Negative COVID-19 Clin Com See Note 08/04/22 08/04/22 08/05/22 18:50 20:32 05:45 MCV 77.8 L MCH 24.5 L MCHC 31.5 RDW 15.0 Plt Count 341 MPV 9.2 L Immature Gran % (Auto) 0.6 H Neut % (Auto) 82.3 H Lymph % (Auto) 10.4 L [place] % (Auto) 6.5 Eos % (Auto) 0.0 Baso % (Auto) 0.2 Lymph # (Auto) 1.0 L [place] # (Auto) 0.6 Eos # (Auto) 0.0 Baso # (Auto) 0.0 Abs Immat Gran (auto) 0.06 H Absolute Neuts (auto) 8.0 Absolute Nucleated RBC 0.000 Nucleated RBC % (auto) 0.0 PT INR APTT Anion Gap 18 Estim Creat Clear Calc 75.3 Estimated GFR > 60 Random Glucose 138 H Calcium 9.7 Total Bilirubin 1.8 H Direct Bilirubin AST 142 H ALT 167 H Alkaline Phosphatase 337 H D Troponin I High Sens 4.3 C-Reactive Protein Total Protein 7.7 Albumin 4.1 Lipase 21 COVID-19 (JOCE) COVID-19 [email or web address] Com 08/05/22 08/05/22 08/05/22 05:45 10:05 10:05 MCV MCH MCHC RDW Plt Count MPV Immature Gran % (Auto) Neut % (Auto) Lymph % (Auto) [place] % (Auto) Eos % (Auto) Baso % (Auto) Lymph # (Auto) [place] # (Auto) Eos # (Auto) Baso # (Auto) Abs Immat Gran (auto) Absolute Neuts (auto) Absolute Nucleated RBC Nucleated RBC % (auto) PT INR APTT Anion Gap 18 Estim Creat Clear Calc 74.3 Estimated GFR > 60 Random Glucose 126 H Calcium 9.0 D Total Bilirubin 2.9 H 3.5 H Direct Bilirubin 1.6 H 2.3 H AST 205 H 235 H ALT 226 H 255 H Alkaline Phosphatase 321 H 343 H Troponin I High Sens C-Reactive Protein 7.86 H Total Protein 6.8 6.9 Albumin 3.7 3.7 Lipase COVID-19 (JOCE) COVID-19 Clin Com Procedures Date of Service Date of Service: 08/05/22 Progress Note: A&P Assessment and plan (1) Common bile duct dilation: Status: Acute Assessment and Plan: Bilirubin increasing Likely ductal stone MRCP pending GI consult possible ERCP Abdomen otherwise benign Time Spent With Patient Time: Total time spent is greater than 50% in coordination of care (as documented) at patient's floor/unit and/or counseling patient: Quality Stroke Does the patient have a stroke diagnosis?: No VTE Prior VTE?: No VTE Risk Level:: Medical - moderate - high VTE Device Contraindication: Treatment Not Indicated VTE Drug Contraindication: Treatment Not Indicated
[2022-08-05 19:03] VITALS: RESP 17
[2022-08-05] MEDS: Morphine Sulfate 4 MG/ML CARTRIDGE IVPUSH (19:03)
[2022-08-05 19:14] VITALS: PULSE 58; RESP 17; O2SAT 94
[2022-08-05 23:19] VITALS: BP 133/58; PULSE 68; RESP 18; O2SAT 94
[2022-08-06] MEDS: 0.9 % Sodium Chloride Flush 3 ML SYRINGE IVFLUSH ×3 (00:09→15:36)
[2022-08-06] MEDS: Piperacillin Sodium/Tazobactam 4.5 GM in 0.9 % Sodium Chloride 100 ML IV ×4 (00:09→21:05)
--- NOTE | 2022-08-06 04:20 | PC.NURSE ---
Upon assuming care of patient, zosyn had not infused from midnight dose. Infused during this RN care. Pharmacy made aware and will adjust next due time.
[2022-08-06] MEDS: Morphine Sulfate 4 MG/ML CARTRIDGE IVPUSH (04:59)
[2022-08-06 07:00] LABS: Hematocrit 34.3 % (37.0-47.0); Mean Corpuscular HGB Conc 32.1 g/dl (31.0-35.0); Mean Corpuscular Hemoglobin 25.1 pg (27.0-33.0); Mean Corpuscular Volume 78.1 fL (80.0-98.0); Mean Platelet Volume 9.6 fL (9.4-12.3); Platelet Count 359 X10*3/uL (160-400); Red Blood Count 4.39 X10*6/uL (4.20-5.50); Red Cell Distribution Width 15.3 % (11.0-16.0); White Blood Count 7.6 X10*3/uL (4.8-10.8)
[2022-08-06 07:44] VITALS: BP 141/56; PULSE 56; RESP 18; O2SAT 92
[2022-08-06 07:46] LABS: Alanine Aminotransferase 247 U/L (0-31); Albumin Level 3.4 g/dL (3.5-5.0); Alkaline Phosphatase 329 U/L (39-117); Anion Gap 17 (12-20); Aspartate Amino Transferase 191 U/L (5-31); Bilirubin Direct 3.1 mg/dL (0.0-0.5); Bilirubin Total 4.9 mg/dL (0.0-1.0); Blood Urea Nitrogen 18 mg/dL (9-16); Calcium 8.9 mg/dL (8.4-10.2); Carbon Dioxide 25 mmol/L (22-29); Chloride 104 mmol/L (96-108); Creatinine Clr Calc Pharmacy 69.4; Estimated Glomerular Filt Rate > 60; Glucose Random 81 mg/dL (60-115); Potassium 3.7 mmol/L (3.3-5.1); Sodium 142 mmol/L (135-145); Total Protein 6.5 g/dL (6.5-8.0)
[2022-08-06 08:18] VITALS: TEMP 36.6
[2022-08-06] MEDS: Metoprolol Succinate ER 25 MG TAB.ER.24H PO (09:10)
[2022-08-06] MEDS: Cholecalciferol (Vitamin D3) 25 MCG TABLET 50 MCG PO (09:10)
[2022-08-06] MEDS: Acetaminophen 325 MG TABLET 650 MG PO (09:10)
[2022-08-06] MEDS: Atorvastatin Calcium 20 MG TABLET PO (09:11)
[2022-08-06] MEDS: Cyanocobalamin (Vitamin B-12) 1,000 MCG TABLET 1000 MCG PO (09:11)
--- NOTE | 2022-08-06 09:15 | PC.NURSE ---
rn to rn report given to ginette for transfer to room 346. pt aware of plan of care.
--- NOTE | 2022-08-06 09:20 | PC.NURSE ---
pt is a/o x 4 no sob/jacque noted lungs - yary upper lobes - diminished. yary lower lobes - cta. pt speaks in full sentences. heart sounds regular. abd soft and non-tender, bs + x 4 quads. pt aware of plan of care.
--- NOTE | 2022-08-06 09:42 | PC.NURSE ---
rn to rn report given to eliane ([facility]) pt aware of plan of care for procedure today.
[2022-08-06 09:49] VITALS: BMI 41.0
[2022-08-06 10:00] VITALS: BP 182/79; PULSE 55; RESP 20; TEMP 36.2; O2SAT 96
--- NOTE | 2022-08-06 11:05 | HO.PM.IMPN ---
Subjective Subjective Date of Service: 08/06/22 Interval History: RUQ pain resolved, now c/o back pain no fever Review of Systems Review of Systems: Yes all other systems are reviewed and are negative Physical Exam Vital Signs: Vital Signs: Last Vital Signs Temp 97.1 F 08/06/22 10:00 Pulse 55 08/06/22 10:00 Resp 20 08/06/22 10:00 BP 182/79 H 08/06/22 10:00 Pulse Ox 96 08/06/22 10:00 O2 Del Method 08/06/22 10:00 O2 Flow Rate 2 08/06/22 10:00 BMI result Body Mass Index 41.0 Gen: in no acute distress HEENT: sclera mildly icteric, moist mucus membranes Neck: supple Lungs: clear to auscultation bilaterally Heart: regular rate and rhythm, no murmurs Abd: soft, non-tender, non-distended, obese Ext: no edema Skin: warm/well-perfused Neuro: alert and oriented x3, no focal findings Psych: appropriate affect Objective Data Active Medications Acetaminophen (Acetaminophen 325 Mg Tablet) 650 mg PO Q6H PRN PRN Reason: Pain, Mild (Pain Scale 1-3) Last Admin: 08/06/22 09:10 Dose: 650 mg Documented By: KARLA Albuterol Sulfate (Albuterol Sulfate (0.083%) 2.5 Mg/3 Ml Vial.Neb) 2.5 mg INHALE Q6H PRN PRN Reason: bronchospasm Atorvastatin Calcium (Atorvastatin Calcium 20 Mg Tablet) 20 mg PO DAILY [facility] Last Admin: 08/06/22 09:11 Dose: 20 mg Documented By: KARLA Cyanocobalamin (Cyanocobalamin (Vitamin B-12) 1,000 Mcg Tablet) 1,000 mcg PO DAILY [facility] Last Admin: 08/06/22 09:11 Dose: 1,000 mcg Documented By: KARLA Fluoxetine HCl (Fluoxetine Hcl 20 Mg Capsule) 40 mg PO DAILY [facility] Last Admin: 08/06/22 09:16 Dose: Not Given Documented By: KARLA Non-Admin Reason: med d/c'd per pt Fluticasone/Vilanterol (Fluticasone/Vilanterol 200/25 Blst.W.Dev) 1 puff INHALE RDAILY [facility] Last Admin: 08/06/22 07:29 Dose: Not Given Documented By: MING Non-Admin Reason: Med Not Available Lactated Ringer's (Lr) 1,000 mls @ 100 mls/hr IVCONT .Q10H [facility] Last Admin: 08/06/22 10:36 Dose: Not Given Documented By: MERYL Non-Admin Reason: IV Running Piperacillin Sod/Tazobactam (Sod 4.5 gm/ Sodium Chloride) 100 mls @ 200 mls/hr IV Q6H [facility] Last Admin: 08/06/22 10:28 Dose: 200 mls/hr Documented By: MERYL Melatonin (Melatonin 3 Mg Tablet) 6 mg PO BEDTIME PRN PRN Reason: Insomnia Metoprolol Succinate (Metoprolol Succinate Er 25 Mg Tab.Er.24h) 25 mg PO DAILY [facility]; Protocol Last Admin: 08/06/22 09:10 Dose: 25 mg Documented By: KARLA Morphine Sulfate (Morphine Sulfate 4 Mg/Ml Cartridge) 4 mg IVPUSH Q4H PRN; Protocol PRN Reason: Pain, Severe (Pain Scale 7-10) Last Admin: 08/06/22 04:59 Dose: 4 mg Documented By: DENI Ondansetron HCl (Ondansetron Hcl 4 Mg/2 Ml Vial) 4 mg IVPUSH Q8H PRN PRN Reason: Nausea and Vomiting Sodium Chloride (0.9 % Sodium Chloride Flush 3 Ml Syringe) 3 ml IVFLUSH QSHIFT [facility] Last Admin: 08/06/22 09:05 Dose: 3 ml Documented By: KARLA Vitamin D (Cholecalciferol (Vitamin D3) 25 Mcg Tablet) 50 mcg PO DAILY [facility] Last Admin: 08/06/22 09:10 Dose: 50 mcg Documented By: KARLA Labs CBC & Chem 7: 08/06/22 06:33 08/06/22 06:33 Labs: Laboratory Results - last 24 hr 08/06/22 08/06/22 06:33 06:33 MCV 78.1 L MCH 25.1 L MCHC 32.1 RDW 15.3 Plt Count 359 MPV 9.6 Absolute Nucleated RBC 0.000 Nucleated RBC % (auto) 0.0 Anion Gap 17 Estim Creat Clear Calc 69.4 Estimated GFR > 60 Random Glucose 81 Calcium 8.9 Total Bilirubin 4.9 H Direct Bilirubin 3.1 H AST 191 H ALT 247 H Alkaline Phosphatase 329 H Total Protein 6.5 Albumin 3.4 L Assessment and Plan (1) Common bile duct dilation: Status: Acute Plan d#3 66yo F with HTN, morbid obesity, HLD, asthma, MDD presenting with RUQ pain and found to have dilation of the CBD + GB distension with gallstones concerning for choledocholithiasis but MRCP did not show a stone # CBD dilation - ?passed stone- GI + Gen Surg consulting, continue to monitor LFTs, continue pip/familia d#3, discuss timing of lap james # HTN - continue metoprolol, hold furosemide # mod per asthma, not in acute exac - continue Breo, prn albuterol # MDD - continue fluoxetine # VTE ppx: SCDs In my clinical judgment, the patient requires continued hospitalization for the following reasons: CBD dilation- operative management? Quality Stroke Does the patient have a stroke diagnosis?: No VTE Prior VTE?: No VTE Risk Level:: Medical - moderate - high VTE Device Contraindication: Treatment Not Indicated VTE Drug Contraindication: Treatment Not Indicated
[2022-08-06 11:41] VITALS: BP 127/59; PULSE 51; RESP 20; TEMP 36.2; O2SAT 97
[2022-08-06] MEDS: Lactated Ringers 1,000 ML 100 ML IVCONT (14:18)
[2022-08-06 15:24] VITALS: BP 117/53; PULSE 54; RESP 19; TEMP 36.4
--- NOTE | 2022-08-06 15:39 | PM.GIPN ---
Subjective Subjective Date of Service: 08/06/22 Interval History: some nausea after eating lunch today Critical Care Time (minutes): 0 Physical Exam Vital Signs: Vital Signs: Last Vital Signs Temp 97.5 F 08/06/22 15:24 Pulse 54 08/06/22 15:24 Resp 19 08/06/22 15:24 BP 117/53 L 08/06/22 15:24 Pulse Ox 97 08/06/22 11:41 O2 Del Method 08/06/22 15:24 O2 Flow Rate 96 08/06/22 15:24 BMI result Body Mass Index 41.0 GI: Other: abdomen is soft and nontender Objective Data Labs CBC & Chem 7: 08/06/22 06:33 08/06/22 06:33 Labs: Laboratory Results - last 24 hr 08/06/22 08/06/22 06:33 06:33 WBC 7.6 RBC 4.39 Hgb 11.0 L Hct 34.3 L MCV 78.1 L MCH 25.1 L MCHC 32.1 RDW 15.3 Plt Count 359 MPV 9.6 Absolute Nucleated RBC 0.000 Nucleated RBC % (auto) 0.0 Sodium 142 Potassium 3.7 Chloride 104 Carbon Dioxide 25 Anion Gap 17 BUN 18 H Creatinine 0.77 Estim Creat Clear Calc 69.4 Estimated GFR > 60 Random Glucose 81 Calcium 8.9 Total Bilirubin 4.9 H Direct Bilirubin 3.1 H AST 191 H ALT 247 H Alkaline Phosphatase 329 H Total Protein 6.5 Albumin 3.4 L Microbiology Microbiology Results: Microbiology 08/05/22 10:05 Blood - Venous Blood Culture - Preliminary No growth after 24 hours. 08/05/22 10:05 Blood - Venous Blood Culture - Preliminary No growth after 24 hours. Procedures Date of Service Date of Service: 08/06/22 Progress Note: A&P Assessment and plan (1) Abdominal pain: Status: Acute Assessment and Plan: we discussed ercp today as bilirubin is climbing this was placed on hold after she ate lunch. Keep npo after mn until labs are reviewed tomorrow, if the lfts are worse would recommend ercp, if better, she may have passed some stones or sludge. Time Spent With Patient Time: Total time spent is greater than 50% in coordination of care (as documented) at patient's floor/unit and/or counseling patient: Quality Stroke Does the patient have a stroke diagnosis?: No VTE Prior VTE?: No VTE Risk Level:: Medical - moderate - high VTE Device Contraindication: Treatment Not Indicated VTE Drug Contraindication: Treatment Not Indicated
[2022-08-06 19:29] VITALS: BP 136/65; PULSE 59; RESP 17; TEMP 36.3; O2SAT 97
[2022-08-07] VITALS: BP 172/79; PULSE 57; RESP 16; TEMP 36.3; O2SAT 96
[2022-08-07] MEDS: Lactated Ringers 1,000 ML 100 ML IVCONT ×2 (01:46→10:40)
[2022-08-07 03:45] VITALS: BP 143/67; PULSE 54; RESP 16; TEMP 36.3; O2SAT 94
[2022-08-07] MEDS: Fluticasone/Vilanterol 200/25 BLST.W.DEV 1 PUFF INHALE (04:05)
[2022-08-07] MEDS: Piperacillin Sodium/Tazobactam 4.5 GM in 0.9 % Sodium Chloride 100 ML IV (04:06)
[2022-08-07] MEDS: Morphine Sulfate 4 MG/ML CARTRIDGE IVPUSH ×2 (05:53→10:58)
[2022-08-07] MEDS: Albuterol Sulfate (0.083%) 2.5 MG/3 ML VIAL.NEB INHALE (05:56)
[2022-08-07 05:57] VITALS: PULSE 58; RESP 16; O2SAT 98
[2022-08-07 06:30] LABS: Hemoglobin 9.1 g/dl (12.0-16.0); Mean Corpuscular HGB Conc 31.4 g/dl (31.0-35.0); Mean Corpuscular Volume 79.7 fL (80.0-98.0); Mean Platelet Volume 9.3 fL (9.4-12.3); Platelet Count 306 X10*3/uL (160-400); Red Blood Count 3.64 X10*6/uL (4.20-5.50); Red Cell Distribution Width 15.3 % (11.0-16.0); White Blood Count 5.8 X10*3/uL (4.8-10.8)
[2022-08-07 06:54] LABS: Alanine Aminotransferase 161 U/L (0-31); Albumin Level 2.7 g/dL (3.5-5.0); Alkaline Phosphatase 240 U/L (39-117); Aspartate Amino Transferase 92 U/L (5-31); Bilirubin Direct 0.8 mg/dL (0.0-0.5); Bilirubin Total 1.4 mg/dL (0.0-1.0); Total Protein 5.2 g/dL (6.5-8.0)
[2022-08-07 06:57] LABS: Alanine Aminotransferase 169 U/L (0-31); Albumin Level 2.8 g/dL (3.5-5.0); Alkaline Phosphatase 248 U/L (39-117); Anion Gap 17 (12-20); Aspartate Amino Transferase 98 U/L (5-31); Bilirubin Total 1.5 mg/dL (0.0-1.0); Blood Urea Nitrogen 14 mg/dL (9-16); C Reactive Protein 4.69 mg/dL (< or = 0.50); Calcium 8.3 mg/dL (8.4-10.2); Carbon Dioxide 22 mmol/L (22-29); Chloride 106 mmol/L (96-108); Creatinine Clr Calc Pharmacy 80.8; Estimated Glomerular Filt Rate > 60; Glucose Random 97 mg/dL (60-115); Sodium 141 mmol/L (135-145); Total Protein 5.3 g/dL (6.5-8.0)
[2022-08-07 07:12] VITALS: BP 165/77; PULSE 61; RESP 19; TEMP 36.9; O2SAT 97
--- NOTE | 2022-08-07 07:32 | PM.EVENT ---
Event Note Date of Service: 08/07/22 Event Note: GI lfts show marked improvement this am this suggests she likely passed a stone or sludge. I do not recommend ERCP at this time given lab and mri findings. She can have cholecystectomy per general surgery recommendations.
[2022-08-07] MEDS: Acetaminophen 325 MG TABLET 650 MG PO (07:56)
[2022-08-07] MEDS: Cholecalciferol (Vitamin D3) 25 MCG TABLET 50 MCG PO (07:57)
[2022-08-07] MEDS: Atorvastatin Calcium 20 MG TABLET PO (07:57)
[2022-08-07] MEDS: Cyanocobalamin (Vitamin B-12) 1,000 MCG TABLET 1000 MCG PO (07:57)
[2022-08-07] MEDS: Metoprolol Succinate ER 25 MG TAB.ER.24H PO (07:57)
[2022-08-07 08:14] LABS: Iron 56 mcg/dL (30-160); Percent Iron Saturation 21 % (15-50); Total Iron Binding Capacity 269 mcg/dL (228-428); Unsaturated Iron Binding 213 ug/dL
[2022-08-07 08:33] LABS: Ferritin 73 ng/mL (10-250)
[2022-08-07] MEDS: Ferrous Sulfate 324 MG TABLET.DR PO (10:40)
[2022-08-07 11:10] VITALS: BP 138/65; PULSE 53; RESP 18; TEMP 36.4; O2SAT 97
--- NOTE | 2022-08-07 12:17 | MHC.CM.PN ---
PER HOSPITALIST PT WILL BE MEDICALLY CLEARED FOR D/C HOME W/RESUMP OF ALTRANAIS [facility]NA AND DAILY [employer]NA[employer] TRAINEE, PT'S AT BEDSIDE AND WILL TRANSPORT.
--- NOTE | 2022-08-07 12:54 | P.DS_ITS ---
DS: Providers Provider Date of Service: 08/07/22 Date of admission: 08/04/22 22:09 Date of discharge: 08/07/22 Primary care physician: Neymar Hill MD Consults: 08/04/22 22:11 Consult to Gastroenterology Routine Consulting Provider: Cristian Robles Reason for consultation: ERCP Has provider been notified: No DS: Diagnosis Discharge Diagnosis (1) Abdominal pain: Status: Acute (2) Common bile duct dilation: Status: Acute (3) Iron deficiency anemia: Status: Acute DS: Summary Hospital Course Hospital Course: from admission history and physical by hospitalist Kim Arreguin MD, 08/04/22: This is a 66-year-old female with a pertinent history of essential hypertension, major depressive disorder, asthma, mixed hyperlipidemia who presents to the emergency department for evaluation of abdominal pain.? Patient states the pain started this morning while she was eating crackers.? It is located in the right upper quadrant region, progressive, nonradiating, constant and without any relieving factors.? It is associated with nausea and nonbloody emesis.? Has not able to eat anything since morning due to pain and vomiting.? Denies similar complaints in the past.? Also has fever and chills.? Denies chest discomfort, shortness of breath, palpitations, changes in urinary or bowel habi ts. In the emergency department, CT scan showed dilated common bile duct and general surgery, Dr. Flood as was consulted who recommended admission for ERCP. This 66yo F with HTN, morbid obesity, HLD, asthma, and MDD presenting with RUQ pain was found to have dilation of the common bile duct and gallbaldder distension with multiple gallstones concerning for choledocholithiasis. She was admitted to the general medical floor. General Surgery and Gastroenterology were consulted. MRCP did not show a stone. Bilirubin normalized. She was thought to have passed either a gallstone or gallbladder sludge. She will see the surgeon as an outpatient to schedule laparoscopic cholecystectomy. She was discharged home with return precautions. She was prescribed iron for anemia and should repeat CBC in 1 week. Time Spent with Patient Time attestation: Total time spent providing and/or coordinating discharge services: Discharge coordination time: Greater than 30 minutes Quality: Safe Use of Opioids Does Pt have an Active Cancer Diagnosis on the Problem List?: No Quality: Stroke Does the patient have a stroke diagnosis?: No Physical Exam Vital Signs: Vital Signs: Last Vital Signs Temp 97.5 F 08/07/22 11:10 Pulse 53 08/07/22 11:10 Resp 18 08/07/22 11:10 BP 138/65 08/07/22 11:10 Pulse Ox 97 08/07/22 11:10 O2 Del Method 08/07/22 11:10 O2 Flow Rate 2 08/07/22 11:10 BMI result Body Mass Index 41.0 Gen: in no acute distress HEENT: sclera anicteric, moist mucus membranes Neck: supple Lungs: clear to auscultation bilaterally Heart: regular rate and rhythm, no murmurs Abd: soft, non-tender, non-distended, obese Ext: no edema Skin: warm/well-perfused Neuro: alert and oriented x3, no focal findings Psych: appropriate affect DS: Data Data Completed and Pending Completed studies during hospitalization [Text1]: Laboratory Results WBC 5.8 X10*3/uL (4.8-10.8) 08/07/22 05:11 RBC 3.64 X10*6/uL (4.20-5.50) L 08/07/22 05:11 Hgb 9.1 g/dl (12.0-16.0) L 08/07/22 05:11 Hct 29.0 % (37.0-47.0) L 08/07/22 05:11 MCV 79.7 fL (80.0-98.0) L 08/07/22 05:11 MCH 25.0 pg (27.0-33.0) L 08/07/22 05:11 MCHC 31.4 g/dl (31.0-35.0) 08/07/22 05:11 RDW 15.3 % (11.0-16.0) 08/07/22 05:11 Plt Count 306 X10*3/uL (160-400) 08/07/22 05:11 MPV 9.3 fL (9.4-12.3) L 08/07/22 05:11 Immature Gran % (Auto) 0.6 % (0.0-0.4) H 08/05/22 05:45 Neut % (Auto) 82.3 % (45-73) H 08/05/22 05:45 Lymph % (Auto) 10.4 % (20-40) L 08/05/22 05:45 [place] % (Auto) 6.5 % (2-11) 08/05/22 05:45 Eos % (Auto) 0.0 % (0-4) 08/05/22 05:45 Baso % (Auto) 0.2 % (0-2) 08/05/22 05:45 Lymph # (Auto) 1.0 X10*3/uL (1.2-4.9) L 08/05/22 05:45 [place] # (Auto) 0.6 X10*3/uL (0.1-1.2) 08/05/22 05:45 Eos # (Auto) 0.0 X10*3/uL (0.0-0.4) 08/05/22 05:45 Baso # (Auto) 0.0 X10*3/uL (0.0-0.2) 08/05/22 05:45 Abs Immat Gran (auto) 0.06 X10*3/uL (0.00-0.03) H 08/05/22 05:45 Absolute Neuts (auto) 8.0 x10*3/uL (2.0-8.3) 08/05/22 05:45 Absolute Nucleated RBC 0.000 X10*3/uL (0.0-0.012) 08/07/22 05:11 Nucleated RBC % (auto) 0.0 /100WBC (0.0-0.2) 08/07/22 05:11 PT 11.4 SEC (10.0-13.1) 08/04/22 18:49 INR 1.0 (0.9-1.1) 08/04/22 18:49 APTT 25.6 SEC (26.0-36.4) L 08/04/22 18:49 Sodium 141 mmol/L (135-145) 08/07/22 05:11 Potassium 4.0 mmol/L (3.3-5.1) 08/07/22 05:11 Chloride 106 mmol/L (96-108) 08/07/22 05:11 Carbon Dioxide 22 mmol/L (22-29) 08/07/22 05:11 Anion Gap 17 (12-20) 08/07/22 05:11 BUN 14 mg/dL (9-16) 08/07/22 05:11 Creatinine 0.66 mg/dL (0.5-1.4) 08/07/22 05:11 Estim Creat Clear Calc 80.8 08/07/22 05:11 Estimated GFR > 60 08/07/22 05:11 Random Glucose 97 mg/dL (60-115) 08/07/22 05:11 Calcium 8.3 mg/dL (8.4-10.2) L D 08/07/22 05:11 Iron 56 mcg/dL (30-160) 08/07/22 05:11 TIBC 269 mcg/dL (228-428) 08/07/22 05:11 % Saturation 21 % (15-50) 08/07/22 05:11 Unsat Iron Binding 213 ug/dL 08/07/22 05:11 Ferritin 73 ng/mL (10-250) 08/07/22 05:11 Total Bilirubin 1.4 mg/dL (0.0-1.0) H 08/07/22 05:11 Total Bilirubin 1.5 mg/dL (0.0-1.0) H 08/07/22 05:11 Direct Bilirubin 0.8 mg/dL (0.0-0.5) H 08/07/22 05:11 AST 92 U/L (5-31) H 08/07/22 05:11 AST 98 U/L (5-31) H 08/07/22 05:11 ALT 161 U/L (0-31) H 08/07/22 05:11 ALT 169 U/L (0-31) H 08/07/22 05:11 Alkaline Phosphatase 240 U/L (39-117) H 08/07/22 05:11 Alkaline Phosphatase 248 U/L (39-117) H D 08/07/22 05:11 Troponin I High Sens 4.3 ng/L (<3.5-17.0) 08/04/22 20:32 C-Reactive Protein 4.69 mg/dL (< or = 0.50) H 08/07/22 05:11 Total Protein 5.2 g/dL (6.5-8.0) L 08/07/22 05:11 Total Protein 5.3 g/dL (6.5-8.0) L 08/07/22 05:11 Albumin 2.7 g/dL (3.5-5.0) L 08/07/22 05:11 Albumin 2.8 g/dL (3.5-5.0) L 08/07/22 05:11 Lipase 21 U/L (8-78) 08/04/22 18:50 COVID-19 (JOCE) Negative (Negative) 08/04/22 18:49 COVID-19 Clin Com See Note 08/04/22 18:49 Impressions Abdomen/Pelvis CT 08/04/22 20:00 IMPRESSION: Interval development of biliary ductal dilatation. Correlate with LFTs. No obstructing source demonstrated. Further assessment with ERCP or MRCP recommended. Fleischner guidelines were followed. Abdomen Ultrasound 08/04/22 22:38 IMPRESSION: Distended tender gallbladder with mobile gallstones without pericholecystic fluid or significant wall thickening. There is intrahepatic biliary ductal dilatation, similar to that seen on the CT scan. Discharge Plan Discharge Anticipated Discharge Date/Time: 08/07/22 12:39 Patient Disposition: Home, Self-Care Discharge Diagnosis: dilated common bile duct likely passed gallstone or sludge iron deficiency anemia Referrals: Tavon Flood MD [Physician] - 1 Week Neymar Hill MD [Primary Care Provider] - 1 Week Discharge Medications: New ferrous sulfate 324 mg (65 mg iron) Tablet,Delayed Release (Dr/Ec) 324 mg PO DAILY Qty: 30 0RF Continued (DME) miscellaneous medical supply [facility] [place] See Rx Instructions .ROUTE .MEDSUPPLY Qty: 1 0RF Rx Instructions: GRAB BAR 18 (DME) miscellaneous medical supply [facility] See Rx Instructions .ROUTE .MEDSUPPLY Qty: 1 0RF Rx Instructions: toilet safety frame (DME) Ultra-Light Rollator Misc See Rx Instructions .ROUTE .MEDSUPPLY Qty: 1 0RF Rx Instructions: As directed Proair Digihaler 90 mcg/actuation aero powdr breath act w/sensor 2 inh inhalation Q4-6H PRN (Reason: shortness of breath or wheezing) 30 Days Qty: 1 6RF metoprolol succinate 25 mg tablet extended release 24 hr 25 mg PO DAILY 90 Days Qty: 90 3RF furosemide 20 mg tablet 20 mg PO DAILY 90 Days Qty: 90 3RF cyanocobalamin (vitamin B-12) [Vitamin B-12] 1,000 mcg tablet 1,000 mcg PO DAILY Qty: 90 1RF atorvastatin 20 mg tablet 20 mg PO DAILY 90 Days Qty: 90 3RF cholecalciferol (vitamin D3) [Vitamin D3] 50 mcg (2,000 unit) tablet 50 mcg PO DAILY Qty: 30 5RF oxycodone-acetaminophen 10-325 mg tablet 1 tab PO Q6H PRN (Reason: pain) 30 Days Qty: 120 0RF meclizine 25 mg Tablet 25 mg PO DAILY PRN (Reason: Dizziness) escitalopram oxalate 10 mg tablet 1 tab PO QAM calcium carbonate [Calcium 600] 600 mg calcium (1,500 mg) tablet 600 mg PO BID 90 Days Qty: 180 3RF albuterol sulfate 2.5 mg /3 mL (0.083 %) solution for nebulization 2.5 mg inhalation Q6H PRN (Reason: bronchospasm) 30 Days Qty: 75 1RF fluticasone furoate-vilanterol [Breo Ellipta] 200-25 mcg/dose blister with device 1 inh inhalation DAILY 30 Days Qty: 1 6RF Discharge Orders: Discharge Order (Routine); Ordered 08/07/22 Ordered By: Vignesh Harmon Diet: Low fat, low cholesterol Activity on Discharge: As tolerated Stand Alone Forms: Patient Portal Discharge page Other Ambulatory Orders: Complete Blood Count Auto Diff (Routine) Timeframe: 1 Week Facility: [facility] - Location: Laboratory Ordered By: Vignesh Harmon Care Plan Goals: gallstone management Health Concerns: dilated common bile duct likely passed gallstone or sludge iron deficiency anemia Plan of Treatment: Low-fat diet. Take iron for anemia. PLease re-check CBCd [lab draw] in 1 week. Please follow up with your primary care doctor within 1 week. Return to the hospital if you experience recurrent or worsening symptoms. please make an appointment to see surgeon to plan for laparoscopic cholecystectomy: Tavon Flood MD [address] [place] [address] [place] [id number] Assessment: See Discharge Summary.
== END 2022-08-07 14:11 | disposition home or self-care (01) | DRG 445 ==
LOC: HO.ED 21:45 → HO.EDOVER 22:15 → HO.S3 08-06 08:45
PROVIDERS: Internal Medicine Gastroenterology; Physician Assistant; Surgery; Admitting Provider Student in an Organized Health Care Education/Training Program; Emergency Provider Internal Medicine; PCP Internal Medicine; Visit Provider Family Medicine
DX: K80.50 Calculus of bile duct without cholangitis or cholecystitis without obstruction (principal); Z68.41 Body mass index [BMI] 40.0-44.9, adult; E78.2 Mixed hyperlipidemia; F32.9 Major depressive disorder, single episode, unspecified; I10 Essential (primary) hypertension; D50.9 Iron deficiency anemia, unspecified; E66.01 Morbid (severe) obesity due to excess calories; J45.30 Mild persistent asthma, uncomplicated; Z20.822 Contact with and (suspected) exposure to COVID-19; Z96.653 Presence of artificial knee joint, bilateral; Z91.040 Latex allergy status; Z79.51 Long term (current) use of inhaled steroids; Z79.899 Other long term (current) drug therapy
CPT/HCPCS: 36415; 74177; 74181; 76700; 80048; 80053; 80076; 82728; 83540; 83690; 84484; 85025; 85027; 85610; 85730; 86140; 87040; 87635; 93005; 99285; J2270; J2405; J2543; Q9967

== ENCOUNTER 2022-08-09 18:20 | Emergency (ER) | payer MEDICARE, MEDICAID, SELFPAY ==
[2022-08-09 18:26] VITALS: BP 113/37; BP 146/82; PULSE 78; RESP 18; TEMP 38.6; O2SAT 94; BMI 44.4
[2022-08-09] MEDS: Acetaminophen 325 MG TABLET 975 MG PO (18:37)
== END 2022-08-09 22:17 | disposition left against medical advice (07) ==
PROVIDERS: Emergency Provider Emergency Medicine
DX: M54.50 Low back pain, unspecified (principal); R50.9 Fever, unspecified
CPT/HCPCS: 99282; 99283

== ENCOUNTER → 2022-08-21 15:40 | Outpatient (BNVA) | payer MEDICARE, MEDICAID, SELFPAY | PROVIDERS: PCP Internal Medicine; Visit Provider Surgery | DX: K80.20 Calculus of gallbladder without cholecystitis without obstruction (principal); E66.01 Morbid (severe) obesity due to excess calories | CPT/HCPCS: 99212 ==

== ENCOUNTER 2022-08-23 11:19 | Inpatient (IN) | payer MEDICARE, MEDICAID, SELFPAY ==
--- NOTE | ~2022-08-23 | CT_ITS ---
EXAMINATION: CT CHEST WITH CONTRAST CT ABDOMEN AND PELVIS WITH CONTRAST CLINICAL INFORMATION: Question pneumonia. Abdominal pain. Question colitis or cholecystitis. COMPARISON: 01/12/2021 and 06/04/2022 TECHNIQUE: Multidetector volumetric imaging was performed through the chest, abdomen and pelvis following the administration of oral and 85 mL of Omnipaque 350 intravenous contrast. Sagittal and coronal reformatted images were obtained on the technologist's workstation. Axial MIP volume rendering provided. This CT examination was performed using dose optimization techniques as appropriate, variously including the following: *Automated exposure control *Adjustment of mA and/or kV according to patient size (this includes techniques or standardized protocols for targeted exams where dose is matched to indication/reason for exam; i.e. extremities or head) *Use of iterative reconstruction technique DLP: 1242 mGy-cm. FINDINGS: CHEST: Lungs: The central airways are patent. There is a left lower lobe consolidation. This involves a significant portion of the lower lobe and is new from 08/04/2022. There is also focal patchy opacity at the right midlung noted.. No pleural effusion or pneumothorax. Mediastinum: The heart is of normal size. There is no pericardial effusion. Central vascular structures are unremarkable. No hilar or mediastinal lymphadenopathy. Coronary Artery Calcification: Present. Chest Wall/Axilla: No lymphadenopathy. No chest wall mass. ABDOMEN/PELVIS: Liver, Gallbladder, Biliary Tree: The liver is normal in size, shape, and attenuation. No focal hepatic lesion or biliary ductal dilatation is present. The gallbladder is distended with no evidence of radiopaque gallstones, gallbladder wall thickening, or pericholecystic inflammatory changes. Pancreas: Unremarkable. Spleen: Unremarkable. Adrenal Glands: Unremarkable. Kidneys and Ureters: The kidneys are normal in size, shape, and attenuation. No hydronephrosis, hydroureter or calculi seen. No perinephric stranding. Exophytic simple cyst at the upper pole of the left kidney. No follow-up imaging recommended. Bladder: Unremarkable. Gastrointestinal Tract: The stomach and small bowel appear unremarkable. No dilated loops of bowel or evidence of obstruction. No diverticulosis. No colonic wall thickening or adjacent inflammatory changes. No free air or free fluid. The appendix is unremarkable. Abdominal Wall: No hernia is demonstrated. Lymphovascular Structures: Lymph nodes: Normal. Vascular: Unremarkable. Pelvic Viscera: Anteverted uterus. Calcified structure adjacent to the uterine fundus could be adnexal or a small fibroid. This is unchanged. OSSEOUS STRUCTURES: No suspicious sclerotic or lytic bone lesions are identified. Mild degenerative change throughout the spine. CT/CT abdomen pelvis w IV con IMPRESSION: 1. Consolidation of the left lower lobe is new from 08/04/2022. This is concerning for pneumonia. There is also patchy opacity at the right midlung which may be infectious as well. 2. No acute findings in the abdomen or pelvis. No inflammatory changes.
[2022-08-23 11:35] VITALS: BP 129/49; BP 140/87; PULSE 88; RESP 20; TEMP 38.7; O2SAT 92; O2SAT 93; BMI 39.6
[2022-08-23 11:54] LABS: MANUAL DIFF FLAG NO
[2022-08-23 11:58] LABS: Basophils Percent Auto 0.2 % (0-2); Eosinophils Absolute Auto 0.1 X10*3/uL (0.0-0.4); Eosinophils Percent Auto 0.7 % (0-4); Hematocrit 38.6 % (37.0-47.0); Hemoglobin 12.3 g/dl (12.0-16.0); Imm Gran Abs Auto 0.16 X10*3/uL (0.00-0.03); Imm Gran Pct Auto 0.8 % (0.0-0.4); Lymphocytes Absolute Auto 1.2 X10*3/uL (1.2-4.9); Mean Corpuscular HGB Conc 31.9 g/dl (31.0-35.0); Mean Corpuscular Hemoglobin 25.1 pg (27.0-33.0); Mean Corpuscular Volume 78.6 fL (80.0-98.0); Mean Platelet Volume 9.5 fL (9.4-12.3); Monocytes Percent Auto 5.3 % (2-11); Platelet Count 196 X10*3/uL (160-400); Red Blood Count 4.91 X10*6/uL (4.20-5.50); Red Cell Distribution Width 15.6 % (11.0-16.0); White Blood Count 19.5 X10*3/uL (4.8-10.8)
[2022-08-23 12:16] LABS: Alanine Aminotransferase 19 U/L (0-31); Albumin Level 3.9 g/dL (3.5-5.0); Alkaline Phosphatase 167 U/L (39-117); Anion Gap 19 (12-20); Aspartate Amino Transferase 27 U/L (5-31); Bilirubin Total 2.5 mg/dL (0.0-1.0); Blood Urea Nitrogen 18 mg/dL (9-16); Calcium 9.7 mg/dL (8.4-10.2); Carbon Dioxide 25 mmol/L (22-29); Chloride 99 mmol/L (96-108); Creatinine Clr Calc Pharmacy 69.8; Estimated Glomerular Filt Rate > 60; Glucose Random 125 mg/dL (60-115); Potassium 4.3 mmol/L (3.3-5.1); Sodium 139 mmol/L (135-145); Total Protein 8.1 g/dL (6.5-8.0)
--- NOTE | 2022-08-23 12:25 | ED.GENADULT ---
HPI - General Adult General Chief complaint: General Medical Stated complaint: ABD PAIN,N/V,DIFF BREATH 93% ON RA FOR DAYS PER EM Time Seen by Provider: 08/23/22 12:09 Source: patient Mode of arrival: ambulatory Limitations: no limitations History of Present Illness HPI narrative: 66-year-old female history of asthma, B12 deficiency, recent gallstones, history of breast cancer. Patient states yesterday having diffuse abdominal pain with nausea vomiting. Patient states abdominal pain severe causing her to have shortness of breath. Patient denies any chest pain. Patient states having fever and chills since last night. Patient denies any coughing up phlegm, headache, dizziness, or neck stiffness. Related Data Home Medications Medication Instructions Recorded Confirmed meclizine 25 mg tablet 25 mg PO DAILY PRN Dizziness 08/02/20 08/23/22 escitalopram oxalate 10 mg tablet 1 tab PO DAILY 08/05/22 08/23/22 Previous Rx's Medication Instructions Recorded miscellaneous medical supply #1 ea 11/08/20 miscellaneous medical supply #1 ea 11/08/20 walker (Ultra-Light Rollator misc) #1 ea 11/08/20 calcium carbonate 600 mg calcium 600 mg PO BID 90 days #180 tabs 11/13/20 (1,500 mg) tablet (Calcium) albuterol sulfate 90 mcg/actuation 2 inh inhalation Q4-6H PRN 10/05/21 breath activated powder shortness of breath or wheezing 30 inhaler,sensor (Proair Digihaler) days #1 ea metoprolol succinate 25 mg 25 mg PO DAILY 90 days #90 tabs 10/29/21 tablet,extended release 24 hr cyanocobalamin (vitamin B-12) 1,000 mcg PO DAILY #90 tabs 11/26/21 1,000 mcg tablet (Vitamin B-12) furosemide 20 mg tablet 20 mg PO DAILY 90 days #90 tabs 11/26/21 albuterol sulfate 2.5 mg/3 mL 2.5 mg (3 mL) inhalation Q6H PRN 01/09/22 (0.083 %) solution for nebulization bronchospasm 30 days #75 mL atorvastatin 20 mg tablet 20 mg PO DAILY 90 days #90 tabs 01/27/22 cholecalciferol (vitamin D3) 50 50 mcg PO DAILY #30 tabs 07/01/22 mcg (2,000 unit) tablet (Vitamin D3) fluticasone furoate 200 1 inh inhalation DAILY 30 days #1 07/02/22 mcg-vilanterol 25 mcg/dose ea inhalation powder (Breo Ellipta) ferrous sulfate 324 mg (65 mg 324 mg PO DAILY #30 tabs 08/07/22 iron) tablet,delayed release oxycodone-acetaminophen 10 mg-325 1 tab PO Q6H PRN pain 30 days #120 08/08/22 mg tablet tabs Allergies Allergy/AdvReac Type Severity Reaction Status Date / Time latex [LATEX] Allergy Intermediate RASH Verified 08/21/22 15:55 Review of Systems Review of Systems: Abdominal pain, fever, chills Yes all other systems are reviewed and are negative [facility] Past Medical History Medical History Abdominal pain Arthritis Asthma B12 deficiency Back pain Biliary colic Breast cancer Chronic pain Common bile duct dilation Constipation Depression Dizziness Dyslipidemia Elevated TSH Foot pain, bilateral Gallstones Hair loss Hair loss History of left bundle branch block (LBBB) History of pernicious anemia History of trigger finger History of vitamin D deficiency HTN (hypertension) Lumbar degenerative disc disease Mild aortic stenosis Mild recurrent major depression Moderate persistent asthma Morbid obesity Morbid obesity Murmur On beta mel at home Right hip pain Sleep apnea Tinnitus Surgical History History of dilation and curettage History of lymph node dissection of left axilla History of total left knee replacement (TKR) History of total right knee replacement (TKR) Hx of bilateral cataract extraction Hx of colonoscopy Hx of esophagogastroduodenoscopy S/P lumpectomy, left breast Family History Family History Father Prostate cancer Hypertension Mother Skin cancer Dementia Diabetes Daughter Lupus Maternal Grandmother Diabetes Hypertension Maternal Grandfather No problems noted. Paternal Grandmother No problems noted. Paternal Grandfather Cancer Brother Prostate cancer Social History Social History Household Members: Spouse and Other Household Members Other:: Graddaughter Housing: House Do you presently have visiting nurse or other home services: Yes (Granddaughter is home health operations assistant) Alcohol intake: never Patient Tobacco Use Status: Never used Tobacco e-Cigarette/Vaping Use: Never Used Second Hand Smoke Exposure: No Substance Use Type: Marijuana Advance Directives: Yes Advance Directives on File: Yes Advance Directives Date on File: 08/05/22 service: No Current occupational status: disabled Cognitive needs: Yes Hearing needs: No Vision needs: Yes Physical Exam ED Vital Signs: Vital Signs - 24 hr 08/23/22 11:35 08/23/22 12:36 Temperature 101.6 F H Pulse Rate 88 86 Respiratory Rate 20 18 Blood Pressure 129/49 L 122/56 L Pulse Oximetry 92 96 Oxygen Delivery Method Room Air Nasal Cannula Oxygen Flow Rate 2 BMI result Body Mass Index 39.6 Const General: cooperative, healthy appearing, comfortable, no acute distress, well developed, alert, awake and Physically active Orientation/consciousness: oriented to time and patient oriented x3 HENMT Head: Yes normal to inspection, Yes No palpable skull fracture present, Yes normocephalic, Yes atraumatic and No abrasion Eyes General: appearance normal, both eyes and all related structures Neck Neck: Yes normal visual inspection, Yes full ROM, Yes no lymphadenopathy, Yes no meningeal signs, Yes trachea midline, Yes supple, No anterior neck swelling and No tender Chest Chest palpation & inspection: normal inspection of the chest and normal palpation of entire chest wall Resp Effort & Inspection: normal respiratory effort and able to speak in complete sentences Auscultation: clear to auscultation bilaterally Cardio Jugular venous distension: no JVD Heart sounds: S1 normal heart sound present and S2 normal heart sound present GI Inspection: Yes normal to inspection and No abdominal wall ecchymosis Palpation (GI): Soft to palpation, not firm, Tenderness to palpation present (GI) (diffuse), Guarding due to palpation present (GI) and not rigid General: No CVA tenderness and Yes no CVA tenderness Back/Spine/Pelvis Back: no CVA tenderness, No CVA tenderness and No back tenderness Skin General skin exam: no rashes or lesions noted and elasticity normal Neuro General: oriented to time, patient oriented x3, gait normal, no meningeal signs and CN's II-XI intact bilaterally Cranial nerves: Yes CN's II-XII intact bilaterally Extrem Other: lower extremities negative for swelling, pitting edema, or calf tenderness. General: Yes normal to inspection and Yes full ROM Psych Appearance: grossly normal, well kempt and not disheveled Course Course Course Narrative: Patient with fever and elevated white count was sent for imaging pain medication ordered. Will start antibiotics. lactic acid and blood culture ordered. PATIENT ROOM AIR 90%. PLACED ON 2 L OXYGEN Reevaluation(s) Reevaluation #1: PATIENT WHITE BLOOD CELL COUNT [id number]. PATIENT CEFTRIAXONE METRONIDAZOLE WAS ORDERED BEFORE CT SCAN RESULTS DUE TO DIAGNOSIS OF SUSPECTING INTRA-ABDOMINAL INFECTION. CHEST CT SHOWS PNEUMONIA. LACTIC ACID NEGATIVE. PATIENT GIVEN MORPHINE FOR PAIN. CASE ADMITTED TO HOSPITALIST DR. ENCARNACION WILL CANCEL FLAGYL AND STATES HE WILL ORDER AZITHROMYCIN. Time: 15:39 Medical Decision Making MDM Narrative Medical decision making narrative: PNEUMONIA Lab Data Result diagrams: 08/23/22 11:52 08/23/22 11:52 Labs: Lab Results 08/23/22 08/23/22 08/23/22 Range/Units 11:52 11:52 12:26 WBC 19.5 H (4.8-10.8) X10*3/uL RBC 4.91 D (4.20-5.50) X10*6/uL Hgb 12.3 D (12.0-16.0) g/dl Hct 38.6 D (37.0-47.0) % MCV 78.6 L (80.0-98.0) fL MCH 25.1 L (27.0-33.0) pg MCHC 31.9 (31.0-35.0) g/dl RDW 15.6 (11.0-16.0) % Plt Count 196 D (160-400) X10*3/uL MPV 9.5 (9.4-12.3) fL Immature Gran % (Auto) 0.8 H (0.0-0.4) % Neut % (Auto) 87.0 H (45-73) % Lymph % (Auto) 6.0 L (20-40) % [place] % (Auto) 5.3 (2-11) % Eos % (Auto) 0.7 (0-4) % Baso % (Auto) 0.2 (0-2) % Lymph # (Auto) 1.2 (1.2-4.9) X10*3/uL [place] # (Auto) 1.0 (0.1-1.2) X10*3/uL Eos # (Auto) 0.1 (0.0-0.4) X10*3/uL Baso # (Auto) 0.0 (0.0-0.2) X10*3/uL Abs Immat Gran (auto) 0.16 H (0.00-0.03) X10*3/uL Absolute Neuts (auto) 17.0 H (2.0-8.3) x10*3/uL Absolute Nucleated RBC 0.000 (0.0-0.012) X10*3/uL Nucleated RBC % (auto) 0.0 (0.0-0.2) /100WBC Sodium 139 (135-145) mmol/L Potassium 4.3 (3.3-5.1) mmol/L Chloride 99 (96-108) mmol/L Carbon Dioxide 25 (22-29) mmol/L Anion Gap 19 (12-20) BUN 18 H (9-16) mg/dL Creatinine 0.78 (0.5-1.4) mg/dL Estim Creat Clear Calc 69.8 Estimated GFR > 60 Random Glucose 125 H (60-115) mg/dL Lactic Acid 1.4 (0.5-2.0) mmol/L Calcium 9.7 D (8.4-10.2) mg/dL Total Bilirubin 2.5 H (0.0-1.0) mg/dL AST 27 D (5-31) U/L ALT 19 (0-31) U/L Alkaline Phosphatase 167 H D (39-117) U/L Total Protein 8.1 H D (6.5-8.0) g/dL Albumin 3.9 D (3.5-5.0) g/dL Influenza Type A (PCR) (Negative) Influenza Type B (PCR) (Negative) RSV RNA Qual (PCR) (Negative) SARS-CoV-2 RNA (RT-PCR) (Negative) 08/23/22 Range/Units 12:31 WBC (4.8-10.8) X10*3/uL RBC (4.20-5.50) X10*6/uL Hgb (12.0-16.0) g/dl Hct (37.0-47.0) % MCV (80.0-98.0) fL MCH (27.0-33.0) pg MCHC (31.0-35.0) g/dl RDW (11.0-16.0) % Plt Count (160-400) X10*3/uL MPV (9.4-12.3) fL Immature Gran % (Auto) (0.0-0.4) % Neut % (Auto) (45-73) % Lymph % (Auto) (20-40) % [place] % (Auto) (2-11) % Eos % (Auto) (0-4) % Baso % (Auto) (0-2) % Lymph # (Auto) (1.2-4.9) X10*3/uL [place] # (Auto) (0.1-1.2) X10*3/uL Eos # (Auto) (0.0-0.4) X10*3/uL Baso # (Auto) (0.0-0.2) X10*3/uL Abs Immat Gran (auto) (0.00-0.03) X10*3/uL Absolute Neuts (auto) (2.0-8.3) x10*3/uL Absolute Nucleated RBC (0.0-0.012) X10*3/uL Nucleated RBC % (auto) (0.0-0.2) /100WBC Sodium (135-145) mmol/L Potassium (3.3-5.1) mmol/L Chloride (96-108) mmol/L Carbon Dioxide (22-29) mmol/L Anion Gap (12-20) BUN (9-16) mg/dL Creatinine (0.5-1.4) mg/dL Estim Creat Clear Calc Estimated GFR Random Glucose (60-115) mg/dL Lactic Acid (0.5-2.0) mmol/L Calcium (8.4-10.2) mg/dL Total Bilirubin (0.0-1.0) mg/dL AST (5-31) U/L ALT (0-31) U/L Alkaline Phosphatase (39-117) U/L Total Protein (6.5-8.0) g/dL Albumin (3.5-5.0) g/dL Influenza Type A (PCR) NEGATIVE (Negative) Influenza Type B (PCR) NEGATIVE (Negative) RSV RNA Qual (PCR) NEGATIVE (Negative) SARS-CoV-2 RNA (RT-PCR) NEGATIVE (Negative) Discharge Plan Discharge Clinical Impression: Pneumonia Patient Disposition: Admitted As Inpatient
[2022-08-23] MEDS: Morphine Sulfate 4 MG/ML CARTRIDGE IVPUSH (12:31)
[2022-08-23 12:36] VITALS: BP 122/56; PULSE 86; RESP 18; O2SAT 96
--- NOTE | 2022-08-23 12:45 | PC.NURSE ---
Pt alert and oriented, respirations even and unlabored. Reports 10/10 pain to abdomen. States no lab draws or blood pressures to left side for hx cancer. IV established, labs drawn and sent
[2022-08-23 12:46] LABS: Lactic Acid 1.4 mmol/L (0.5-2.0)
[2022-08-23 13:15] LABS: Influenza A PCR NEGATIVE (Negative); Influenza B PCR NEGATIVE (Negative); Resp Syncy Virus RNA Qual PCR NEGATIVE (Negative); SARS COV2 PCR INHOUSE NEGATIVE (Negative)
[2022-08-23] MEDS: cefTRIAXone sodium 1 GM in 0.9 % Sodium Chloride 50 ML IV (13:27)
[2022-08-23] MEDS: iohexoL 350 MG/ML 100 ML INFUS..BTL IV (13:29)
--- NOTE | 2022-08-23 15:05 | PHA.MEDREC ---
Pharmacy Consult ? Medication Reconciliation Pharmacy has completed the medication reconciliation.
[2022-08-23] MEDS: metroNIDAZOLE/NS 500 MG/100 ML PIGGYBACK 100 MG IV (15:16)
[2022-08-23] MEDS: Acetaminophen 325 MG TABLET 650 MG PO (15:16)
--- NOTE | 2022-08-23 15:17 | P.HPHOSP_ITS ---
History of Present Illness Date of Service: 08/23/22 Chief Complaint: Left sided pleuritic chest pain This is a 66 yo F with a PMH as outlined below who presents to the ED with complaints of left sided chest pain, plueritic in nature, which began about 3 days prior to admission. She reports associated shortness of breath and nausea due to severe pain. She reports oral intake. She reports fevers and cough. However, she denies a productive cough. Reports generalized malaise. She denies any sick contacts. Denies any anginal symptoms. She denies RUQ pain. [The patient was admitted for RUQ pain and diagnosed with CBD dilatation, gallstones but negative MRCP for stones last month -- she was to f/u with gen surg for elective cholecystectomy). In the ED patients work up revealed signifincaly elevated WBC 19.5k; CT chest showed left sided consolidation; T bili elevated to 2.5. She was febrile to 101 .6; She has been given tylenol, iv rocephin, iv fluids and now will be admitted for further care. Review of Systems Review of Systems: negative except HPI PMFSH Medical History Abdominal pain Arthritis Asthma B12 deficiency Back pain Biliary colic Breast cancer Chronic pain Common bile duct dilation Constipation Depression Dizziness Dyslipidemia Elevated TSH Foot pain, bilateral Gallstones Hair loss Hair loss History of left bundle branch block (LBBB) History of pernicious anemia History of trigger finger History of vitamin D deficiency HTN (hypertension) Lumbar degenerative disc disease Mild aortic stenosis Mild recurrent major depression Moderate persistent asthma Morbid obesity Morbid obesity Murmur On beta mel at home Right hip pain Sleep apnea Tinnitus Family History Father Prostate cancer Hypertension Mother Skin cancer Dementia Diabetes Daughter Lupus Maternal Grandmother Diabetes Hypertension Maternal Grandfather No problems noted. Paternal Grandmother No problems noted. Paternal Grandfather Cancer Brother Prostate cancer Surgical History History of dilation and curettage History of lymph node dissection of left axilla History of total left knee replacement (TKR) History of total right knee replacement (TKR) Hx of bilateral cataract extraction Hx of colonoscopy Hx of esophagogastroduodenoscopy S/P lumpectomy, left breast Social History Household Members: Spouse and Other Household Members Other:: Graddaughter Housing: House Do you presently have visiting nurse or other home services: Yes (Granddaughter is home health kindergarten assistant) Alcohol intake: never Patient Tobacco Use Status: Never used Tobacco e-Cigarette/Vaping Use: Never Used Second Hand Smoke Exposure: No Substance Use Type: Marijuana Advance Directives: Yes Advance Directives on File: Yes Advance Directives Date on File: 08/05/22 service: No Current occupational status: disabled Cognitive needs: Yes Hearing needs: No Vision needs: Yes Meds Allergies Allergy/AdvReac Type Severity Reaction Status Date / Time latex [LATEX] Allergy Intermediate RASH Verified 08/21/22 15:55 Home Medications Medication Instructions Recorded Confirmed Last Taken Type meclizine 25 mg tablet 25 mg PO DAILY PRN Dizziness 08/02/20 08/23/22 Unknown History escitalopram oxalate 10 mg tablet 1 tab PO DAILY 08/05/22 08/23/22 08/23/22 History Physical Exam Vital Signs and Narrative: Vital Signs: Last Vital Signs Temp 101.6 F H 08/23/22 11:35 Pulse 86 08/23/22 12:36 Resp 18 08/23/22 12:36 BP 122/56 L 08/23/22 12:36 Pulse Ox 96 08/23/22 12:36 O2 Del Method 08/23/22 12:36 O2 Flow Rate 2 08/23/22 12:36 BMI result Body Mass Index 39.6 Const: Other: Constitutional - ill appearing Eyes - PERRLA, EOMI Cardiovascular - S1S2, RRR, No edema Respiratory - Diminished respiratory effort due to pain; decreased sounds on the L side compared to R Gastrointestinal - NT / ND; +BS; No rebound or guarding - No CVA tenderness Extremities - no calf tenderness bilaterally, no swelling Musculoskeletal - Normal inspection, normal ROM Skin - Warm/Dry Neurological - Alert & oriented x3, No focal deficit Psychological - Appropriate affect Results Labs CBC and Chem 7: 08/23/22 11:52 08/23/22 11:52 Labs: Laboratory Results - last 24 hr 08/23/22 08/23/22 08/23/22 11:52 11:52 12:26 MCV 78.6 L MCH 25.1 L MCHC 31.9 RDW 15.6 Plt Count 196 D MPV 9.5 Immature Gran % (Auto) 0.8 H Neut % (Auto) 87.0 H Lymph % (Auto) 6.0 L [place] % (Auto) 5.3 Eos % (Auto) 0.7 Baso % (Auto) 0.2 Lymph # (Auto) 1.2 [place] # (Auto) 1.0 Eos # (Auto) 0.1 Baso # (Auto) 0.0 Abs Immat Gran (auto) 0.16 H Absolute Neuts (auto) 17.0 H Absolute Nucleated RBC 0.000 Nucleated RBC % (auto) 0.0 Anion Gap 19 Estim Creat Clear Calc 69.8 Estimated GFR > 60 Random Glucose 125 H Lactic Acid 1.4 Calcium 9.7 D Total Bilirubin 2.5 H AST 27 D ALT 19 Alkaline Phosphatase 167 H D Total Protein 8.1 H D Albumin 3.9 D Influenza Type A (PCR) Influenza Type B (PCR) RSV RNA Qual (PCR) SARS-CoV-2 RNA (RT-PCR) 08/23/22 12:31 MCV MCH MCHC RDW Plt Count MPV Immature Gran % (Auto) Neut % (Auto) Lymph % (Auto) [place] % (Auto) Eos % (Auto) Baso % (Auto) Lymph # (Auto) [place] # (Auto) Eos # (Auto) Baso # (Auto) Abs Immat Gran (auto) Absolute Neuts (auto) Absolute Nucleated RBC Nucleated RBC % (auto) Anion Gap Estim Creat Clear Calc Estimated GFR Random Glucose Lactic Acid Calcium Total Bilirubin AST ALT Alkaline Phosphatase Total Protein Albumin Influenza Type A (PCR) NEGATIVE Influenza Type B (PCR) NEGATIVE RSV RNA Qual (PCR) NEGATIVE SARS-CoV-2 RNA (RT-PCR) NEGATIVE Imaging Radiologist's Impressions: Impressions Chest CT 08/23/22 13:27 IMPRESSION: 1. Consolidation of the left lower lobe is new from 08/04/2022. This is concerning for pneumonia. There is also patchy opacity at the right midlung which may be infectious as well. 2. No acute findings in the abdomen or pelvis. No inflammatory changes. Abdomen/Pelvis CT 08/23/22 13:29 IMPRESSION: 1. Consolidation of the left lower lobe is new from 08/04/2022. This is concerning for pneumonia. There is also patchy opacity at the right midlung which may be infectious as well. 2. No acute findings in the abdomen or pelvis. No inflammatory changes. Assessment and Plan (1) Severe sepsis: Status: Acute Plan 66 yo F with a PMH of HTN, morbid obesity, HLD, asthma, MDD who presents with a 3 day history of respiratory symptoms and left chest pain, pleuritic in nature. She is diagnosed with sepsis secondary to pneumonia and admitted for further care. 1. Severe sepsis secondary to left sided pneumonia Meets sepsis criteria with fevers and leukocytosis; severe features of elevated bilirubin IV doxy + rocphin pain control f/u cultures 2. Hyperbilirubinemia likely due to severe sepsis she did have elevated bili last admission due to gall stones, but it improved upon discharge to 1.4; now elevated to 2.5 and she does not have any RUQ symptoms to suggest acute biliary pathology; ct abd/pelvis is negative 3. HTN continue metoprolol, hold lasix 4. Mood continue escitalopram 5. morbid obesity consider outpatient weight loss program referral Full Code DVT pptx, Lovenox Due to the patient having severe sepsis secondary to pneumonia, I anticpiate an inpatient hospitalization which is likely to span at least 2 midnights for treatment with antibiotics and monitoring response. Quality Stroke Does the patient have a stroke diagnosis?: No VTE Prior VTE?: No VTE Risk Level:: Medical - moderate - high VTE Device Contraindication: Treatment Not Indicated VTE Drug Contraindication: N/A - Med Ordered
[2022-08-23 17:15] VITALS: PULSE 76; RESP 18; TEMP 37.8; O2SAT 95
[2022-08-23] MEDS: Doxycycline Hyclate 100 MG in 0.9 % Sodium Chloride 250 ML 166.67 MG IV (17:48)
[2022-08-24] VITALS (10 sets, daily range): BP systolic 115–138; BP diastolic 49–74; PULSE 57–84; RESP 17–20; TEMP 36.2–38.8; O2SAT 96–99
[2022-08-24] MEDS: 0.9 % Sodium Chloride Flush 3 ML SYRINGE IVFLUSH ×4 (00:49→19:48)
[2022-08-24] MEDS: ondansetron HCL 4 MG/2 ML VIAL IVPUSH (00:52)
[2022-08-24] MEDS: Morphine Sulfate 2 MG/ML CARTRIDGE IVPUSH ×3 (00:52→18:09)
--- NOTE | 2022-08-24 02:03 | PC.NURSE ---
RN gave report to nurse in [facility], pt is being transfer to [id number].
[2022-08-24] MEDS: Doxycycline Hyclate 100 MG in 0.9 % Sodium Chloride 250 ML 166.67 MG IV ×2 (04:57→17:00)
[2022-08-24 06:42] LABS: Hematocrit 34.8 % (37.0-47.0); Hemoglobin 10.9 g/dl (12.0-16.0); Mean Corpuscular HGB Conc 31.3 g/dl (31.0-35.0); Mean Corpuscular Hemoglobin 24.8 pg (27.0-33.0); Mean Corpuscular Volume 79.3 fL (80.0-98.0); Mean Platelet Volume 10.3 fL (9.4-12.3); Platelet Count 181 X10*3/uL (160-400); Red Blood Count 4.39 X10*6/uL (4.20-5.50); Red Cell Distribution Width 15.5 % (11.0-16.0); White Blood Count 15.9 X10*3/uL (4.8-10.8)
[2022-08-24 07:00] LABS: Anion Gap 16 (12-20); Blood Urea Nitrogen 15 mg/dL (9-16); Calcium 8.9 mg/dL (8.4-10.2); Carbon Dioxide 25 mmol/L (22-29); Chloride 102 mmol/L (96-108); Creatinine Clr Calc Pharmacy 76.7; Estimated Glomerular Filt Rate > 60; Glucose Random 123 mg/dL (60-115); Potassium 3.7 mmol/L (3.3-5.1); Sodium 139 mmol/L (135-145)
[2022-08-24] MEDS: Fluticasone/Vilanterol 200/25 BLST.W.DEV 1 PUFF INHALE (07:51)
--- NOTE | 2022-08-24 08:36 | MHC.CM.PN ---
CM met with Patient at bedside and addressed IMM with her, providing her with the original and placing a copy on the chart. Patient lives in a house with her and adult Granddaughter and she uses a cane & walker to assist with mobility.Patient [facility] and a [facility] and home/resume said services is the goal. CM has initiated and will follow for dc planning. PCP is DR. Adrianna Richter and Patient has received [employer] vax x2.
[2022-08-24 08:54] LABS: Alanine Aminotransferase 26 U/L (0-31); Albumin Level 3.3 g/dL (3.5-5.0); Alkaline Phosphatase 180 U/L (39-117); Aspartate Amino Transferase 30 U/L (5-31); Bilirubin Direct 1.4 mg/dL (0.0-0.5); Bilirubin Total 2.6 mg/dL (0.0-1.0); Total Protein 6.6 g/dL (6.5-8.0)
[2022-08-24] MEDS: Metoprolol Succinate ER 25 MG TAB.ER.24H PO (09:21)
[2022-08-24] MEDS: Cholecalciferol (Vitamin D3) 25 MCG TABLET 50 MCG PO (09:21)
[2022-08-24] MEDS: Cyanocobalamin (Vitamin B-12) 1,000 MCG TABLET 1000 MCG PO (09:21)
[2022-08-24] MEDS: Escitalopram Oxalate 10 MG TABLET PO (09:22)
[2022-08-24] MEDS: Ferrous Sulfate 324 MG TABLET.DR PO (09:22)
[2022-08-24] MEDS: Atorvastatin Calcium 20 MG TABLET PO (09:22)
[2022-08-24 09:49] LABS: Procalcitonin 2.47 ng/mL
[2022-08-24 11:56] LABS: Adenovirus PCR Not Detected (Not Detect.); Bordetella parapertussis PCR Not Detected (Not Detect.); Bordetella pertussis PCR Not Detected (Not Detect.); Chlamydia pneumoniae PCR Not Detected (Not Detect.); Coronavirus 229E PCR Not Detected (Not Detect.); Coronavirus HKU1 PCR Not Detected (Not Detect.); Coronavirus NL63 PCR Not Detected (Not Detect.); Coronavirus OC43 PCR Not Detected (Not Detect.); Human metapneumovirus PCR Not Detected (Not Detect.); Influenza A PCR Not Detected (Not Detect.); Influenza B PCR Not Detected (Not Detect.); Mycoplasma pneumoniae PCR Not Detected (Not Detect.); Parainfluenza 1 PCR Not Detected (Not Detect.); Parainfluenza 2 PCR Not Detected (Not Detect.); Parainfluenza 3 PCR Not Detected (Not Detect.); Parainfluenza 4 PCR Not Detected (Not Detect.); RSV PCR Not Detected (Not Detect.); Rhino/Enterovirus PCR Not Detected (Not Detect.); SARS-CoV-2 PCR Not Detected (Not Detect.)
[2022-08-24] MEDS: Acetaminophen 325 MG TABLET 650 MG PO (12:33)
[2022-08-24] MEDS: cefTRIAXone sodium 1 GM in 0.9 % Sodium Chloride 50 ML IV (12:33)
--- NOTE | 2022-08-24 13:44 | P.PNIM_ITS ---
Subjective Subjective Date of Service: 08/24/22 Interval History: febrile to 102 at midnight chest pain with coughing no abd pain Review of Systems Review of Systems: Yes all other systems are reviewed and are negative Physical Exam Vital Signs: Vital Signs: Last Vital Signs Temp 97.6 F 08/24/22 11:31 Pulse 69 08/24/22 11:31 Resp 18 08/24/22 11:31 BP 137/68 08/24/22 11:31 Pulse Ox 97 08/24/22 11:31 O2 Del Method 08/24/22 11:31 O2 Flow Rate 2 08/24/22 11:31 BMI result Body Mass Index 39.6 Gen: in no acute distress HEENT: sclera anicteric, moist mucus membranes Neck: supple Lungs: decreased air entry L lung base Heart: regular rate and rhythm, no murmurs Abd: soft, non-tender, non-distended, obese Ext: no edema Skin: warm/well-perfused Neuro: alert and oriented x3, no focal findings Psych: appropriate affect Objective Data Active Medications Acetaminophen (Acetaminophen 325 Mg Tablet) 650 mg PO Q6H PRN PRN Reason: Pain, Mild (Pain Scale 1-3) Last Admin: 08/24/22 12:33 Dose: 650 mg Documented By: NANDINI Atorvastatin Calcium (Atorvastatin Calcium 20 Mg Tablet) 20 mg PO DAILY [facility] Last Admin: 08/24/22 09:22 Dose: 20 mg Documented By: NANDINI Cyanocobalamin (Cyanocobalamin (Vitamin B-12) 1,000 Mcg Tablet) 1,000 mcg PO DAILY [facility] Last Admin: 08/24/22 09:21 Dose: 1,000 mcg Documented By: NANDINI Escitalopram Oxalate (Escitalopram Oxalate 10 Mg Tablet) 10 mg PO DAILY [facility] Last Admin: 08/24/22 09:22 Dose: 10 mg Documented By: NANDINI Ferrous Sulfate (Ferrous Sulfate 324 Mg Tablet.) 324 mg PO DAILY [facility] Last Admin: 08/24/22 09:22 Dose: 324 mg Documented By: NANDINI Fluticasone/Vilanterol (Fluticasone/Vilanterol 200/25 Blst.W.Dev) 1 puff INHALE RDAILY [facility] Last Admin: 08/24/22 07:51 Dose: 1 puff Documented By: HO.GUIDIB Doxycycline Hyclate 100 mg/ (Sodium Chloride) 250 mls @ 166.67 mls/hr IV Q12H [facility] Last Infusion: 08/24/22 06:32 Dose: 0 mls/hr Documented By: ANTOIC Ceftriaxone Sodium 1 gm/ (Sodium Chloride) 50 mls @ 100 mls/hr IV Q24H [facility] Last Infusion: 08/24/22 13:15 Dose: 0 mls/hr Documented By: NANDINI Metoprolol Succinate (Metoprolol Succinate Er 25 Mg Tab.Er.24h) 25 mg PO DAILY [facility]; Protocol Last Admin: 08/24/22 09:21 Dose: 25 mg Documented By: NANDINI Morphine Sulfate (Morphine Sulfate 2 Mg/Ml Cartridge) 2 mg IVPUSH Q4H PRN; Protocol PRN Reason: Pain, Severe (Pain Scale 7-10) Last Admin: 08/24/22 12:33 Dose: 2 mg Documented By: NANDINI Ondansetron HCl (Ondansetron Hcl 4 Mg/2 Ml Vial) 4 mg IVPUSH Q8H PRN PRN Reason: Nausea and Vomiting Last Admin: 08/24/22 00:52 Dose: 4 mg Documented By: EUFEMIA Sodium Chloride (0.9 % Sodium Chloride Flush 3 Ml Syringe) 3 ml IVFLUSH QSHIFT [facility] Last Admin: 08/24/22 09:22 Dose: 3 ml Documented By: NANDINI Vitamin D (Cholecalciferol (Vitamin D3) 25 Mcg Tablet) 50 mcg PO DAILY [facility] Last Admin: 08/24/22 09:21 Dose: 50 mcg Documented By: NANDINI Labs CBC & Chem 7: 08/24/22 06:26 08/24/22 06:26 Labs: Laboratory Results - last 24 hr 08/24/22 08/24/22 08/24/22 06:26 06:26 06:26 MCV 79.3 L MCH 24.8 L MCHC 31.3 RDW 15.5 Plt Count 181 MPV 10.3 Absolute Nucleated RBC 0.000 Nucleated RBC % (auto) 0.0 Anion Gap 16 Estim Creat Clear Calc 76.7 Estimated GFR > 60 Random Glucose 123 H Calcium 8.9 D Total Bilirubin 2.6 H Direct Bilirubin 1.4 H AST 30 ALT 26 Alkaline Phosphatase 180 H Total Protein 6.6 Albumin 3.3 L Procalcitonin 2.47 Respiratory Panel [place] Adenovirus (Rapid PCR) B.pert (TEM-PCR) B.parapertussis DNA PCR C. pneumoniae DNA (PCR) Coronavirus OC43 (PCR) Coronavirus HKU1 (PCR) Coronavirus 229E (PCR) Coronavirus NL63 (PCR) Human Metapneumovir PCR Influenza A (RT-PCR) Influenza B (RT-PCR) M. pneumoniae (PCR) Parainfluenza 1 (PCR) Parainfluenza 2 (PCR) Parainfluenza 3 (PCR) Parainfluenza 4 (PCR) RSV (PCR) Entero/Rhino (PCR) SARS-CoV-2 RNA (RT-PCR) 08/24/22 09:40 MCV MCH MCHC RDW Plt Count MPV Absolute Nucleated RBC Nucleated RBC % (auto) Anion Gap Estim Creat Clear Calc Estimated GFR Random Glucose Calcium Total Bilirubin Direct Bilirubin AST ALT Alkaline Phosphatase Total Protein Albumin Procalcitonin Respiratory Panel [place]gins See note Adenovirus (Rapid PCR) Not Detected B.pert (TEM-PCR) Not Detected B.parapertussis DNA PCR Not Detected C. pneumoniae DNA (PCR) Not Detected Coronavirus OC43 (PCR) Not Detected Coronavirus HKU1 (PCR) Not Detected Coronavirus 229E (PCR) Not Detected Coronavirus NL63 (PCR) Not Detected Human Metapneumovir PCR Not Detected Influenza A (RT-PCR) Not Detected Influenza B (RT-PCR) Not Detected M. pneumoniae (PCR) Not Detected Parainfluenza 1 (PCR) Not Detected Parainfluenza 2 (PCR) Not Detected Parainfluenza 3 (PCR) Not Detected Parainfluenza 4 (PCR) Not Detected RSV (PCR) Not Detected Entero/Rhino (PCR) Not Detected SARS-CoV-2 RNA (RT-PCR) Not Detected Assessment and Plan (1) Pneumonia: Status: Acute (2) Severe sepsis: Status: Acute Plan d#2 66yo F with HTN, morbid obesity, HLD, asthma, MDD, recent admission for dilated CBD thought due to passed stone presenting with 3d of cough and pleuritic chest pain admitted for sepsis due to PNA # severe sepsis due to CAP - d#2 doxycycline + ceftriaxone - follow BCx, check urinary antigens for Legionella + pneumococcus, trend PCT - monitor Tbili; no RUQ pain or tenderness to suggest biliary stone # HTN - continue metoprolol succinate, hold furosemide # HLD - continue statin # asthma - continue ICS/LABA # mood disorder - continue escitalopram # obesity - counseling # VTE ppx: LMWH In my clinical judgment, the patient requires continued inpatient hospitaliza tion for the following reasons: IV ABX Quality Stroke Does the patient have a stroke diagnosis?: No VTE Prior VTE?: No VTE Risk Level:: Medical - moderate - high VTE Device Contraindication: Treatment Not Indicated VTE Drug Contraindication: N/A - Med Ordered
[2022-08-24] MEDS: 0.9 % Sodium Chloride 1,000 ML 999 ML IV (18:41)
[2022-08-25] VITALS (8 sets, daily range): BP systolic 119–148; BP diastolic 56–87; PULSE 62–72; RESP 16–20; TEMP 36.1–37.3; O2SAT 91–99
[2022-08-25] MEDS: Doxycycline Hyclate 100 MG in 0.9 % Sodium Chloride 250 ML 166.67 MG IV ×2 (01:02→15:53)
[2022-08-25] MEDS: ondansetron HCL 4 MG/2 ML VIAL IVPUSH ×2 (01:02→19:59)
[2022-08-25 06:16] LABS: Hematocrit 33.7 % (37.0-47.0); Hemoglobin 10.6 g/dl (12.0-16.0); Mean Corpuscular HGB Conc 31.5 g/dl (31.0-35.0); Mean Corpuscular Volume 79.5 fL (80.0-98.0); Mean Platelet Volume 9.5 fL (9.4-12.3); Platelet Count 214 X10*3/uL (160-400); Red Blood Count 4.24 X10*6/uL (4.20-5.50); Red Cell Distribution Width 15.6 % (11.0-16.0); White Blood Count 10.9 X10*3/uL (4.8-10.8)
[2022-08-25 06:48] LABS: Alanine Aminotransferase 73 U/L (0-31); Albumin Level 3.1 g/dL (3.5-5.0); Alkaline Phosphatase 245 U/L (39-117); Anion Gap 16 (12-20); Aspartate Amino Transferase 101 U/L (5-31); Bilirubin Direct 1.6 mg/dL (0.0-0.5); Bilirubin Total 2.3 mg/dL (0.0-1.0); Blood Urea Nitrogen 10 mg/dL (9-16); Calcium 8.5 mg/dL (8.4-10.2); Carbon Dioxide 24 mmol/L (22-29); Chloride 106 mmol/L (96-108); Creatinine Clr Calc Pharmacy 89.3; Estimated Glomerular Filt Rate > 60; Glucose Random 112 mg/dL (60-115); Potassium 3.5 mmol/L (3.3-5.1); Sodium 142 mmol/L (135-145); Total Protein 6.1 g/dL (6.5-8.0)
[2022-08-25] MEDS: Fluticasone/Vilanterol 200/25 BLST.W.DEV 1 PUFF INHALE (07:44)
[2022-08-25] MEDS: 0.9 % Sodium Chloride Flush 3 ML SYRINGE IVFLUSH ×3 (10:04→20:03)
[2022-08-25] MEDS: Metoprolol Succinate ER 25 MG TAB.ER.24H PO (10:04)
[2022-08-25] MEDS: Escitalopram Oxalate 10 MG TABLET PO (10:04)
[2022-08-25] MEDS: Cholecalciferol (Vitamin D3) 25 MCG TABLET 50 MCG PO (10:04)
[2022-08-25] MEDS: Atorvastatin Calcium 20 MG TABLET PO (10:04)
[2022-08-25] MEDS: Cyanocobalamin (Vitamin B-12) 1,000 MCG TABLET 1000 MCG PO (10:04)
[2022-08-25] MEDS: Ferrous Sulfate 324 MG TABLET.DR PO (10:04)
[2022-08-25] MEDS: Lidocaine 4 % Patch ADH..PATCH 1 PATCH TRANSDERMA (10:05)
--- NOTE | 2022-08-25 10:27 | HO.PM.IMPN ---
Subjective Subjective Date of Service: 08/25/22 Interval History: afebrile now feels weak and c/o chills small amount of hemoptysis now L-sided upper abd and lower chest pain with coughing/deep breathing Review of Systems Review of Systems: Yes all other systems are reviewed and are negative Physical Exam Vital Signs: Vital Signs: Last Vital Signs Temp 99.1 F 08/25/22 07:52 Pulse 68 08/25/22 07:52 Resp 16 08/25/22 07:52 BP 127/69 08/25/22 07:52 Pulse Ox 91 L 08/25/22 07:52 O2 Del Method 08/25/22 07:52 O2 Flow Rate 3 08/25/22 07:52 BMI result Body Mass Index 39.6 Gen: in no acute distress HEENT: sclera anicteric, moist mucus membranes Neck: supple Lungs: decreased air entry L lung base Heart: regular rate and rhythm, no murmurs Abd: soft, non-tender, non-distended, obese Ext: no edema Skin: warm/well-perfused Neuro: alert and oriented x3, no focal findings Psych: appropriate affect Objective Data Active Medications Acetaminophen (Acetaminophen 325 Mg Tablet) 650 mg PO Q6H PRN PRN Reason: Pain, Mild (Pain Scale 1-3) Last Admin: 08/24/22 12:33 Dose: 650 mg Documented By: NANDINI Atorvastatin Calcium (Atorvastatin Calcium 20 Mg Tablet) 20 mg PO DAILY [facility] Last Admin: 08/25/22 10:04 Dose: 20 mg Documented By: NANDINI Cyanocobalamin (Cyanocobalamin (Vitamin B-12) 1,000 Mcg Tablet) 1,000 mcg PO DAILY [facility] Last Admin: 08/25/22 10:04 Dose: 1,000 mcg Documented By: NANDINI Escitalopram Oxalate (Escitalopram Oxalate 10 Mg Tablet) 10 mg PO DAILY [facility] Last Admin: 08/25/22 10:04 Dose: 10 mg Documented By: NANDINI Ferrous Sulfate (Ferrous Sulfate 324 Mg Tablet.Dr) 324 mg PO DAILY [facility] Last Admin: 08/25/22 10:04 Dose: 324 mg Documented By: NANDINI Fluticasone/Vilanterol (Fluticasone/Vilanterol 200/25 Blst.W.Dev) 1 puff INHALE RDAILY [facility] Last Admin: 08/25/22 07:44 Dose: 1 puff Documented By: MING Doxycycline Hyclate 100 mg/ (Sodium Chloride) 250 mls @ 166.67 mls/hr IV Q12H [facility] Last Infusion: 08/25/22 02:42 Dose: 0 mls/hr Documented By: GIOVANNI Ceftriaxone Sodium 1 gm/ (Sodium Chloride) 50 mls @ 100 mls/hr IV Q24H [facility] Last Infusion: 08/24/22 13:15 Dose: 0 mls/hr Documented By: NANDINI Lidocaine (Lidocaine 4 % Patch Adh..Patch) 1 patch TRANSDERMA DAILY [facility]; Protocol Last Admin: 08/25/22 10:05 Dose: 1 patch Documented By: NANDINI Metoprolol Succinate (Metoprolol Succinate Er 25 Mg Tab.Er.24h) 25 mg PO DAILY [facility]; Protocol Last Admin: 08/25/22 10:04 Dose: 25 mg Documented By: NANDINI Morphine Sulfate (Morphine Sulfate 2 Mg/Ml Cartridge) 2 mg IVPUSH Q4H PRN; Protocol PRN Reason: Pain, Severe (Pain Scale 7-10) Last Admin: 08/24/22 18:09 Dose: 2 mg Documented By: NANDINI Ondansetron HCl (Ondansetron Hcl 4 Mg/2 Ml Vial) 4 mg IVPUSH Q8H PRN PRN Reason: Nausea and Vomiting Last Admin: 08/25/22 01:02 EST Dose: 4 mg Documented By: GIOVANNI Sodium Chloride (0.9 % Sodium Chloride Flush 3 Ml Syringe) 3 ml IVFLUSH QSHIFT [facility] Last Admin: 08/25/22 10:04 Dose: 3 ml Documented By: NANDINI Vitamin D (Cholecalciferol (Vitamin D3) 25 Mcg Tablet) 50 mcg PO DAILY [facility] Last Admin: 08/25/22 10:04 Dose: 50 mcg Documented By: NANDINI Labs CBC & Chem 7: 08/25/22 05:56 08/25/22 05:55 Labs: Laboratory Results - last 24 hr 08/24/22 08/25/22 08/25/22 09:40 05:55 05:56 MCV 79.5 L MCH 25.0 L MCHC 31.5 RDW 15.6 Plt Count 214 MPV 9.5 Absolute Nucleated RBC 0.000 Nucleated RBC % (auto) 0.0 Anion Gap 16 Estim Creat Clear Calc 89.3 Estimated GFR > 60 Random Glucose 112 Calcium 8.5 Total Bilirubin 2.3 H Direct Bilirubin 1.6 H AST 101 H ALT 73 H Alkaline Phosphatase 245 H D Total Protein 6.1 L Albumin 3.1 L Respiratory Panel [place] See note Adenovirus (Rapid PCR) Not Detected B.pert (TEM-PCR) Not Detected B.parapertussis DNA PCR Not Detected C. pneumoniae DNA (PCR) Not Detected Coronavirus OC43 (PCR) Not Detected Coronavirus HKU1 (PCR) Not Detected Coronavirus 229E (PCR) Not Detected Coronavirus NL63 (PCR) Not Detected Human Metapneumovir PCR Not Detected Influenza A (RT-PCR) Not Detected Influenza B (RT-PCR) Not Detected M. pneumoniae (PCR) Not Detected Parainfluenza 1 (PCR) Not Detected Parainfluenza 2 (PCR) Not Detected Parainfluenza 3 (PCR) Not Detected Parainfluenza 4 (PCR) Not Detected RSV (PCR) Not Detected Entero/Rhino (PCR) Not Detected SARS-CoV-2 RNA (RT-PCR) Not Detected Microbiology Microbiology Results: Microbiology 08/23/22 12:31 Blood Culture - Preliminary Blood - Venous No growth after 24 hours. 08/23/22 12:26 Blood Culture - Preliminary Blood - Venous No growth after 24 hours. Assessment and Plan (1) Pneumonia: Status: Acute (2) Severe sepsis: Status: Acute Plan d#3 66yo F with HTN, morbid obesity, HLD, asthma, MDD, recent admission for dilated CBD thought due to passed stone presenting with 3d of cough and pleuritic chest pain admitted for sepsis due to PNA # CAP causing severe [due to hyperbilirubinemia] sepsis - d#3 doxycycline + ceftriaxone - follow BCx, urinary antigens for Legionella + pneumococcus pending, trend PCT; send sputum culture - monitor Tbili; no RUQ pain or tenderness to suggest biliary stone # acute hypoxic resp failure - wean O2 as tolerated # HTN - continue metoprolol succinate, hold furosemide # HLD - continue statin # asthma - continue ICS/LABA # mood disorder - continue escitalopram # morbid obesity - diet/exercise counseling # VTE ppx: LMWH In my clinical judgment, the patient requires continued inpatient hospitalization for the following reasons: IV ABX Quality Stroke Does the patient have a stroke diagnosis?: No VTE Prior VTE?: No VTE Risk Level:: Medical - moderate - high VTE Device Contraindication: Treatment Not Indicated VTE Drug Contraindication: N/A - Med Ordered
[2022-08-25] MEDS: cefTRIAXone sodium 1 GM in 0.9 % Sodium Chloride 50 ML IV (13:31)
[2022-08-25] MEDS: Morphine Sulfate 2 MG/ML CARTRIDGE IVPUSH (20:59)
[2022-08-26] VITALS (7 sets, daily range): BP systolic 121–136; BP diastolic 59–69; PULSE 61–79; RESP 16–19; TEMP 36.1–37.6; O2SAT 95–100
[2022-08-26] MEDS: Doxycycline Hyclate 100 MG in 0.9 % Sodium Chloride 250 ML 166.67 MG IV ×2 (05:11→16:58)
[2022-08-26 06:17] LABS: Hematocrit 33.2 % (37.0-47.0); Hemoglobin 10.3 g/dl (12.0-16.0); Mean Corpuscular Hemoglobin 24.6 pg (27.0-33.0); Mean Corpuscular Volume 79.4 fL (80.0-98.0); Mean Platelet Volume 9.4 fL (9.4-12.3); Platelet Count 227 X10*3/uL (160-400); Red Blood Count 4.18 X10*6/uL (4.20-5.50); Red Cell Distribution Width 15.9 % (11.0-16.0)
[2022-08-26 06:25] LABS: Alanine Aminotransferase 83 U/L (0-31); Alkaline Phosphatase 272 U/L (39-117); Anion Gap 17 (12-20); Aspartate Amino Transferase 91 U/L (5-31); Bilirubin Direct 0.5 mg/dL (0.0-0.5); Bilirubin Total 0.8 mg/dL (0.0-1.0); Blood Urea Nitrogen 10 mg/dL (9-16); Calcium 8.5 mg/dL (8.4-10.2); Carbon Dioxide 22 mmol/L (22-29); Chloride 106 mmol/L (96-108); Creatinine Clr Calc Pharmacy 82.5; Estimated Glomerular Filt Rate > 60; Glucose Random 104 mg/dL (60-115); Potassium 3.6 mmol/L (3.3-5.1); Sodium 141 mmol/L (135-145); Total Protein 6.1 g/dL (6.5-8.0)
[2022-08-26 06:48] LABS: Procalcitonin 0.77 ng/mL
[2022-08-26] MEDS: Fluticasone/Vilanterol 200/25 BLST.W.DEV 1 PUFF INHALE (07:38)
[2022-08-26] MEDS: Atorvastatin Calcium 20 MG TABLET PO (09:27)
[2022-08-26] MEDS: Escitalopram Oxalate 10 MG TABLET PO (09:27)
[2022-08-26] MEDS: Cholecalciferol (Vitamin D3) 25 MCG TABLET 50 MCG PO (09:27)
[2022-08-26] MEDS: Ferrous Sulfate 324 MG TABLET.DR PO (09:27)
[2022-08-26] MEDS: Cyanocobalamin (Vitamin B-12) 1,000 MCG TABLET 1000 MCG PO (09:27)
[2022-08-26] MEDS: 0.9 % Sodium Chloride Flush 3 ML SYRINGE IVFLUSH ×3 (09:27→20:30)
[2022-08-26] MEDS: Metoprolol Succinate ER 25 MG TAB.ER.24H PO (09:27)
--- NOTE | 2022-08-26 10:38 | HO.PM.IMPN ---
Subjective Subjective Date of Service: 08/26/22 Interval History: feels tired. poor appetite. no fever. cough improved but still dyspneic. Review of Systems Review of Systems: Yes all other systems are reviewed and are negative Physical Exam Vital Signs: Vital Signs: Last Vital Signs Temp 99.2 F 08/26/22 08:00 Pulse 79 08/26/22 08:00 Resp 18 08/26/22 08:00 BP 136/61 08/26/22 08:00 Pulse Ox 97 08/26/22 08:00 O2 Del Method 08/26/22 08:00 O2 Flow Rate 3.0 08/26/22 08:00 BMI result Body Mass Index 39.6 Gen: in no acute distress HEENT: sclera anicteric, moist mucus membranes Neck: supple Lungs: decreased air entry L lung base Heart: regular rate and rhythm, no murmurs Abd: soft, non-tender, non-distended, obese Ext: no edema Skin: warm/well-perfused Neuro: alert and oriented x3, no focal findings Psych: appropriate affect Objective Data Active Medications Acetaminophen (Acetaminophen 325 Mg Tablet) 650 mg PO Q6H PRN PRN Reason: Pain, Mild (Pain Scale 1-3) Last Admin: 08/24/22 12:33 Dose: 650 mg Documented By: NANDINI Atorvastatin Calcium (Atorvastatin Calcium 20 Mg Tablet) 20 mg PO DAILY [facility] Last Admin: 08/26/22 09:27 Dose: 20 mg Documented By: JAH Cyanocobalamin (Cyanocobalamin (Vitamin B-12) 1,000 Mcg Tablet) 1,000 mcg PO DAILY [facility] Last Admin: 08/26/22 09:27 Dose: 1,000 mcg Documented By: JAH Escitalopram Oxalate (Escitalopram Oxalate 10 Mg Tablet) 10 mg PO DAILY [facility] Last Admin: 08/26/22 09:27 Dose: 10 mg Documented By: JAH Ferrous Sulfate (Ferrous Sulfate 324 Mg Tablet.) 324 mg PO DAILY [facility] Last Admin: 08/26/22 09:27 Dose: 324 mg Documented By: JAH Fluticasone/Vilanterol (Fluticasone/Vilanterol 200/25 Blst.W.Dev) 1 puff INHALE RDAILY [facility] Last Admin: 08/26/22 07:38 Dose: 1 puff Documented By: MING Doxycycline Hyclate 100 mg/ (Sodium Chloride) 250 mls @ 166.67 mls/hr IV Q12H [facility] Last Infusion: 08/26/22 06:45 Dose: 0 mls/hr Documented By: MALCOM Ceftriaxone Sodium 1 gm/ (Sodium Chloride) 50 mls @ 100 mls/hr IV Q24H [facility] Last Infusion: 08/25/22 14:14 Dose: 0 mls/hr Documented By: NANDINI Lidocaine (Lidocaine 4 % Patch Adh..Patch) 1 patch TRANSDERMA DAILY [facility]; Protocol Last Admin: 08/25/22 10:05 Dose: 1 patch Documented By: NANDINI Metoprolol Succinate (Metoprolol Succinate Er 25 Mg Tab.Er.24h) 25 mg PO DAILY [facility]; Protocol Last Admin: 08/26/22 09:27 Dose: 25 mg Documented By: JAH Morphine Sulfate (Morphine Sulfate 2 Mg/Ml Cartridge) 2 mg IVPUSH Q4H PRN; Protocol PRN Reason: Pain, Severe (Pain Scale 7-10) Last Admin: 08/25/22 20:59 Dose: 2 mg Documented By: MALCOM Ondansetron HCl (Ondansetron Hcl 4 Mg/2 Ml Vial) 4 mg IVPUSH Q8H PRN PRN Reason: Nausea and Vomiting Last Admin: 08/25/22 19:59 Dose: 4 mg Documented By: MALCOM Sodium Chloride (0.9 % Sodium Chloride Flush 3 Ml Syringe) 3 ml IVFLUSH QSHIFT [facility] Last Admin: 08/26/22 09:27 Dose: 3 ml Documented By: JAH Vitamin D (Cholecalciferol (Vitamin D3) 25 Mcg Tablet) 50 mcg PO DAILY [facility] Last Admin: 08/26/22 09:27 Dose: 50 mcg Documented By: JAH Labs CBC & Chem 7: 08/26/22 05:55 08/26/22 05:55 Labs: Laboratory Results - last 24 hr 08/26/22 08/26/22 08/26/22 05:55 05:55 05:55 MCV 79.4 L MCH 24.6 L MCHC 31.0 RDW 15.9 Plt Count 227 MPV 9.4 Absolute Nucleated RBC 0.000 Nucleated RBC % (auto) 0.0 Anion Gap 17 Estim Creat Clear Calc 82.5 Estimated GFR > 60 Random Glucose 104 Calcium 8.5 Total Bilirubin 0.8 Direct Bilirubin 0.5 AST 91 H ALT 83 H Alkaline Phosphatase 272 H Total Protein 6.1 L Albumin 3.0 L Procalcitonin 0.77 Microbiology Microbiology Results: Microbiology 08/25/22 14:20 Gram Stain - Final Sputum - Expectorated Sputum Culture - Final 08/23/22 12:31 Blood Culture - Preliminary Blood - Venous No growth after 48 hours. 08/23/22 12:26 Blood Culture - Preliminary Blood - Venous No growth after 48 hours. Assessment and Plan (1) Pneumonia: Status: Acute (2) Severe sepsis: Status: Acute Plan d#4 66yo F with HTN, morbid obesity, HLD, asthma, MDD, recent admission for dilated CBD thought due to passed stone presenting with 3d of cough and pleuritic chest pain admitted for sepsis due to PNA # CAP causing severe [due to hyperbilirubinemia] sepsis - d#4 doxycycline + ceftriaxone - BCx neg @ 48h, urinary antigens for Legionella + pneumococcus pending, PCT decreasing - monitor Tbili + LFTs- improved from yesterday; no RUQ pain or tenderness to suggest biliary stone # AHRF - wean O2 as tolerated- currently on 3L via NC # HTN - continue metoprolol succinate, hold furosemide # HLD - continue statin # asthma - continue ICS/LABA # mood disorder - continue escitalopram # morbid obesity - diet/exercise counseling # VTE ppx: LMWH # dispo: PT consult In my clinical judgment, the patient requires continued inpatient hospitalization for the following reasons: IV ABX, AHRF Quality Stroke Does the patient have a stroke diagnosis?: No VTE Prior VTE?: No VTE Risk Level:: Medical - moderate - high VTE Device Contraindication: Treatment Not Indicated VTE Drug Contraindication: N/A - Med Ordered
[2022-08-26] MEDS: Lidocaine 4 % Patch ADH..PATCH 1 PATCH TRANSDERMA (11:08)
[2022-08-26] MEDS: cefTRIAXone sodium 1 GM in 0.9 % Sodium Chloride 50 ML IV (13:33)
[2022-08-26] MEDS: Morphine Sulfate 2 MG/ML CARTRIDGE IVPUSH ×2 (13:56→19:05)
[2022-08-27] VITALS (8 sets, daily range): BP systolic 113–149; BP diastolic 57–85; PULSE 58–84; RESP 15–18; TEMP 36.2–36.8; O2SAT 92–100
[2022-08-27] MEDS: Doxycycline Hyclate 100 MG in 0.9 % Sodium Chloride 250 ML 166.67 MG IV ×2 (03:35→15:15)
[2022-08-27] MEDS: Fluticasone/Vilanterol 200/25 BLST.W.DEV 1 PUFF INHALE (07:53)
[2022-08-27] MEDS: Escitalopram Oxalate 10 MG TABLET PO (07:59)
[2022-08-27] MEDS: Ferrous Sulfate 324 MG TABLET.DR PO (07:59)
[2022-08-27] MEDS: Cyanocobalamin (Vitamin B-12) 1,000 MCG TABLET 1000 MCG PO (07:59)
[2022-08-27] MEDS: Metoprolol Succinate ER 25 MG TAB.ER.24H PO (07:59)
[2022-08-27] MEDS: Atorvastatin Calcium 20 MG TABLET PO (07:59)
[2022-08-27] MEDS: Cholecalciferol (Vitamin D3) 25 MCG TABLET 50 MCG PO (07:59)
[2022-08-27] MEDS: 0.9 % Sodium Chloride Flush 3 ML SYRINGE IVFLUSH (08:14)
--- NOTE | 2022-08-27 10:46 | PC.NURSE ---
IV was infiltrated at 8:30 AM, new IV was placed at 9 AM. It is peripheral IV 20 gauge. Asymptomatic
[2022-08-27 11:24] LABS: Alanine Aminotransferase 61 U/L (0-31); Alkaline Phosphatase 246 U/L (39-117); Aspartate Amino Transferase 53 U/L (5-31); Bilirubin Direct 0.4 mg/dL (0.0-0.5); Bilirubin Total 0.7 mg/dL (0.0-1.0); Total Protein 6.1 g/dL (6.5-8.0)
--- NOTE | 2022-08-27 11:26 | HO.PM.IMPN ---
Subjective Subjective Date of Service: 08/27/22 Review of Systems Follow-up community-acquired pneumonia Still with pleuritic chest pain especially with deep inspiration but feeling better Physical Exam Vital Signs: Vital Signs: Last Vital Signs Temp 97.5 F 08/27/22 11:23 Pulse 59 08/27/22 11:23 Resp 17 08/27/22 11:23 BP 141/71 H 08/27/22 11:23 Pulse Ox 99 08/27/22 11:23 O2 Del Method 08/27/22 11:23 O2 Flow Rate 3 08/27/22 11:23 BMI result Body Mass Index 39.6 Appearing in no acute distress lung sounds are clear to auscultation heart regular rate rhythm, clear S1, S2 positive bowel sounds, abdomen is soft, nontender neuro patient is alert x3, no focal deficits Objective Data Active Medications Acetaminophen (Acetaminophen 325 Mg Tablet) 650 mg PO Q6H PRN PRN Reason: Pain, Mild (Pain Scale 1-3) Last Admin: 08/24/22 12:33 Dose: 650 mg Documented By: NANDINI Atorvastatin Calcium (Atorvastatin Calcium 20 Mg Tablet) 20 mg PO DAILY [facility] Last Admin: 08/27/22 07:59 Dose: 20 mg Documented By: JAH Cyanocobalamin (Cyanocobalamin (Vitamin B-12) 1,000 Mcg Tablet) 1,000 mcg PO DAILY [facility] Last Admin: 08/27/22 07:59 Dose: 1,000 mcg Documented By: JAH Escitalopram Oxalate (Escitalopram Oxalate 10 Mg Tablet) 10 mg PO DAILY [facility] Last Admin: 08/27/22 07:59 Dose: 10 mg Documented By: JAH Ferrous Sulfate (Ferrous Sulfate 324 Mg Tablet.Dr) 324 mg PO DAILY [facility] Last Admin: 08/27/22 07:59 Dose: 324 mg Documented By: JAH Fluticasone/Vilanterol (Fluticasone/Vilanterol 200/25 Blst.W.Dev) 1 puff INHALE RDAILY [facility] Last Admin: 08/27/22 07:53 Dose: 1 puff Documented By: ANGERICDarlin Doxycycline Hyclate 100 mg/ (Sodium Chloride) 250 mls @ 166.67 mls/hr IV Q12H [facility] Last Infusion: 08/27/22 05:12 Dose: 0 mls/hr Documented By: SERGIO Ceftriaxone Sodium 1 gm/ (Sodium Chloride) 50 mls @ 100 mls/hr IV Q24H [facility] Last Infusion: 08/26/22 14:22 Dose: 0 mls/hr Documented By: JAH Lidocaine (Lidocaine 4 % Patch Adh..Patch) 1 patch TRANSDERMA DAILY [facility]; Protocol Last Admin: 08/27/22 08:12 Dose: Not Given Documented By: JAH Non-Admin Reason: Patient Refused Metoprolol Succinate (Metoprolol Succinate Er 25 Mg Tab.Er.24h) 25 mg PO DAILY [facility]; Protocol Last Admin: 08/27/22 07:59 Dose: 25 mg Documented By: JAH Morphine Sulfate (Morphine Sulfate 2 Mg/Ml Cartridge) 2 mg IVPUSH Q4H PRN; Protocol PRN Reason: Pain, Severe (Pain Scale 7-10) Last Admin: 08/26/22 19:05 Dose: 2 mg Documented By: KEVIN Ondansetron HCl (Ondansetron Hcl 4 Mg/2 Ml Vial) 4 mg IVPUSH Q8H PRN PRN Reason: Nausea and Vomiting Last Admin: 08/25/22 19:59 Dose: 4 mg Documented By: MALCOM Sodium Chloride (0.9 % Sodium Chloride Flush 3 Ml Syringe) 3 ml IVFLUSH QSHIFT [facility] Last Admin: 08/27/22 08:14 Dose: 3 ml Documented By: JAH Vitamin D (Cholecalciferol (Vitamin D3) 25 Mcg Tablet) 50 mcg PO DAILY [facility] Last Admin: 08/27/22 07:59 Dose: 50 mcg Documented By: JAH Labs CBC & Chem 7: 08/26/22 05:55 08/26/22 05:55 Labs: Laboratory Results - last 24 hr 08/27/22 06:47 Total Bilirubin 0.7 Direct Bilirubin 0.4 AST 53 H ALT 61 H Alkaline Phosphatase 246 H Total Protein 6.1 L Albumin 3.0 L Microbiology Microbiology Results: Microbiology 08/25/22 14:20 Gram Stain - Final Sputum - Expectorated Sputum Culture - Final Assessment and Plan (1) Pneumonia: Status: Acute (2) Severe sepsis: Status: Acute Plan 66yo F with HTN, morbid obesity, HLD, asthma, MDD, recent admission for dilated CBD thought due to passed stone presenting with 3d of cough and pleuritic chest pain admitted for sepsis due to PNA CAP causing severe [due to hyperbilirubinemia] sepsis Sepsis resolved doxycycline + ceftriaxone BCx neg monitor Tbili + LFTs- improved from yesterday; no RUQ pain or tenderness to suggest biliary stone Acute hypoxic respiratory failure secondary to community-acquired pneumonia wean O2 as tolerated HTN continue metoprolol succinate, hold furosemide HLD continue statin asthma continue ICS/LABA mood disorder continue escitalopram morbid obesity diet/exercise counseling VTE ppx: LMWH Attending Dr. Felder dispo: Patients wants DC home when medically clear In my clinical judgment, the patient requires continued inpatient hospitalization for the following reasons: IV ABX, [facility] Quality Stroke Does the patient have a stroke diagnosis?: No VTE Prior VTE?: No VTE Risk Level:: Medical - moderate - high VTE Device Contraindication: Treatment Not Indicated VTE Drug Contraindication: N/A - Med Ordered
[2022-08-27] MEDS: cefTRIAXone sodium 1 GM in 0.9 % Sodium Chloride 50 ML IV (12:31)
[2022-08-27] MEDS: Morphine Sulfate 2 MG/ML CARTRIDGE IVPUSH (18:13)
[2022-08-28] VITALS (9 sets, daily range): BP systolic 132–142; BP diastolic 60–74; PULSE 56–88; RESP 16–20; TEMP 36.2–37.6; O2SAT 96–98
[2022-08-28] MEDS: Doxycycline Hyclate 100 MG in 0.9 % Sodium Chloride 250 ML 166.67 MG IV ×2 (03:35→16:21)
[2022-08-28] MEDS: 0.9 % Sodium Chloride Flush 3 ML SYRINGE IVFLUSH ×3 (03:37→17:44)
[2022-08-28 04:11] LABS: Strep Pneumo Ag urine Not Detected (Not Detected)
--- NOTE | 2022-08-28 05:30 | PC.NURSE ---
patient hasn't voided or urinated all night patient is alert and aware but hasn't gone to the bathroom.
[2022-08-28] MEDS: Fluticasone/Vilanterol 200/25 BLST.W.DEV 1 PUFF INHALE (07:31)
[2022-08-28] MEDS: Cyanocobalamin (Vitamin B-12) 1,000 MCG TABLET 1000 MCG PO (08:13)
[2022-08-28] MEDS: Atorvastatin Calcium 20 MG TABLET PO (08:13)
[2022-08-28] MEDS: Escitalopram Oxalate 10 MG TABLET PO (08:13)
[2022-08-28] MEDS: Ferrous Sulfate 324 MG TABLET.DR PO (08:13)
[2022-08-28] MEDS: Lidocaine 4 % Patch ADH..PATCH 1 PATCH TRANSDERMA (08:14)
[2022-08-28] MEDS: Cholecalciferol (Vitamin D3) 25 MCG TABLET 50 MCG PO (08:14)
[2022-08-28] MEDS: Metoprolol Succinate ER 25 MG TAB.ER.24H PO (10:07)
[2022-08-28] MEDS: cefTRIAXone sodium 1 GM in 0.9 % Sodium Chloride 50 ML IV (13:16)
--- NOTE | 2022-08-28 14:20 | P.PNIM_ITS ---
Subjective Subjective Date of Service: 08/28/22 Interval History: Still short of breath with minimal exertion Review of Systems Admits to shortness of breath with exertion Denies chest pain Denies nausea vomiting diarrhea Denies fever chills Physical Exam Vital Signs: Vital Signs: Last Vital Signs Temp 97.5 F 08/28/22 11:25 Pulse 56 08/28/22 11:58 Resp 20 08/28/22 11:25 BP 139/62 08/28/22 11:58 Pulse Ox 96 08/28/22 11:58 O2 Del Method 08/28/22 11:25 O2 Flow Rate 2 08/28/22 11:25 BMI result Body Mass Index 39.6 Const: Other: Awake alert oriented x3 no acute distress Resp: Other: Diminished at bases but otherwise clear to auscultations with scant expiratory wheezes Cardio: Other: No S4; positive S1-S2; no S3 murmurs rubs or gallops GI: Other: Soft positive bowel sounds Extrem: Other: No edema bilaterally Objective Data Active Medications Acetaminophen (Acetaminophen 325 Mg Tablet) 650 mg PO Q6H PRN PRN Reason: Pain, Mild (Pain Scale 1-3) Last Admin: 08/24/22 12:33 Dose: 650 mg Documented By: NANDINI Atorvastatin Calcium (Atorvastatin Calcium 20 Mg Tablet) 20 mg PO DAILY [facility] Last Admin: 08/28/22 08:13 Dose: 20 mg Documented By: SARAH Cyanocobalamin (Cyanocobalamin (Vitamin B-12) 1,000 Mcg Tablet) 1,000 mcg PO DAILY [facility] Last Admin: 08/28/22 08:13 Dose: 1,000 mcg Documented By: SARAH Escitalopram Oxalate (Escitalopram Oxalate 10 Mg Tablet) 10 mg PO DAILY [facility] Last Admin: 08/28/22 08:13 Dose: 10 mg Documented By: SARAH Ferrous Sulfate (Ferrous Sulfate 324 Mg Tablet.Dr) 324 mg PO DAILY [facility] Last Admin: 08/28/22 08:13 Dose: 324 mg Documented By: SARAH Fluticasone/Vilanterol (Fluticasone/Vilanterol 200/25 Blst.W.Dev) 1 puff INHALE RDAILY [facility] Last Admin: 08/28/22 07:31 Dose: 1 puff Documented By: HO.BLASCL Doxycycline Hyclate 100 mg/ (Sodium Chloride) 250 mls @ 166.67 mls/hr IV Q12H [facility] Last Infusion: 08/28/22 05:06 Dose: 0 mls/hr Documented By: NIRU Ceftriaxone Sodium 1 gm/ (Sodium Chloride) 50 mls @ 100 mls/hr IV Q24H [facility] Last Infusion: 08/28/22 14:07 Dose: 0 mls/hr Documented By: JAH Lidocaine (Lidocaine 4 % Patch Adh..Patch) 1 patch TRANSDERMA DAILY [facility]; Protocol Last Admin: 08/28/22 08:14 Dose: 1 patch Documented By: SARAH Metoprolol Succinate (Metoprolol Succinate Er 25 Mg Tab.Er.24h) 25 mg PO DAILY [facility]; Protocol Last Admin: 08/28/22 10:07 Dose: 25 mg Documented By: SARAH Morphine Sulfate (Morphine Sulfate 2 Mg/Ml Cartridge) 2 mg IVPUSH Q4H PRN; Protocol PRN Reason: Pain, Severe (Pain Scale 7-10) Last Admin: 08/27/22 18:13 Dose: 2 mg Documented By: KEVIN Ondansetron HCl (Ondansetron Hcl 4 Mg/2 Ml Vial) 4 mg IVPUSH Q8H PRN PRN Reason: Nausea and Vomiting Last Admin: 08/25/22 19:59 Dose: 4 mg Documented By: MALCOM Sodium Chloride (0.9 % Sodium Chloride Flush 3 Ml Syringe) [address] [facility] Last Admin: 08/28/22 08:14 Dose: 3 ml Documented By: SARAH Vitamin D (Cholecalciferol (Vitamin D3) 25 Mcg Tablet) 50 mcg PO DAILY [facility] Last Admin: 08/28/22 08:14 Dose: 50 mcg Documented By: SARAH Labs CBC & Chem 7: 08/26/22 05:55 08/26/22 05:55 Labs: Laboratory Results - last 24 hr 08/24/22 20:45 Ur Strep pneumoniae Ag Not Detected Assessment and Plan (1) Pneumonia: Status: Acute (2) HTN (hypertension): Status: Acute (3) Asthma: Status: Acute Plan 66yo F with HTN, morbid obesity, HLD, asthma, MDD, recent admission for dilated CBD thought due to passed stone presenting with 3d of cough and pleuritic chest pain admitted for sepsis due to PNA; sepsis now resolved 1.CAP causing severe sepsis -Sepsis resolved -continue doxycycline/ceftriaxone -wean O2 as tolerated -DuoNebs q.6 p.r.n.; backed inhaled therapies upon discharge 2.HTN -acceptable control on current therapy -adjust as indicated 3. Asthma exacerbation secondary to 1. -plan as per 1. Patient requires ongoing hospitalization for IV antibiotics and treat community- acquired pneumonia Quality Stroke Does the patient have a stroke diagnosis?: No VTE Prior VTE?: No VTE Risk Level:: Medical - moderate - high VTE Device Contraindication: Treatment Not Indicated VTE Drug Contraindication: N/A - Med Ordered
--- NOTE | 2022-08-28 14:28 | MHC.CM.PN ---
per rounds pt needs to wean off of 02 ,pt may need an 02 eval prior to dc
[2022-08-29 03:09] VITALS: BP 147/63; PULSE 63; RESP 20; TEMP 37; O2SAT 96
[2022-08-29] MEDS: 0.9 % Sodium Chloride Flush 3 ML SYRINGE IVFLUSH ×2 (03:11→10:56)
--- NOTE | 2022-08-29 05:39 | PC.NURSE ---
IV infiltrated during IV doxycyline infusion, pt refusing new IV at this time, made aware
[2022-08-29 06:41] LABS: MANUAL DIFF FLAG NO
[2022-08-29 06:45] LABS: Basophils Absolute Auto 0.1 X10*3/uL (0.0-0.2); Basophils Percent Auto 0.8 % (0-2); Eosinophils Absolute Auto 0.2 X10*3/uL (0.0-0.4); Eosinophils Percent Auto 3.1 % (0-4); Hematocrit 33.5 % (37.0-47.0); Hemoglobin 10.6 g/dl (12.0-16.0); Imm Gran Abs Auto 0.26 X10*3/uL (0.00-0.03); Imm Gran Pct Auto 3.5 % (0.0-0.4); Lymphocytes Absolute Auto 1.8 X10*3/uL (1.2-4.9); Lymphocytes Percent Auto 24.7 % (20-40); Mean Corpuscular HGB Conc 31.6 g/dl (31.0-35.0); Mean Corpuscular Hemoglobin 24.5 pg (27.0-33.0); Mean Corpuscular Volume 77.4 fL (80.0-98.0); Mean Platelet Volume 8.9 fL (9.4-12.3); Monocytes Absolute Auto 0.5 X10*3/uL (0.1-1.2); Monocytes Percent Auto 6.4 % (2-11); Neutrophils Absolute Auto 4.5 x10*3/uL (2.0-8.3); Neutrophils Percent Auto 61.5 % (45-73); Platelet Count 298 X10*3/uL (160-400); Red Blood Count 4.33 X10*6/uL (4.20-5.50); Red Cell Distribution Width 15.4 % (11.0-16.0); White Blood Count 7.4 X10*3/uL (4.8-10.8)
[2022-08-29 07:09] LABS: Alanine Aminotransferase 39 U/L (0-31); Alkaline Phosphatase 189 U/L (39-117); Anion Gap 15 (12-20); Aspartate Amino Transferase 29 U/L (5-31); Bilirubin Total 0.8 mg/dL (0.0-1.0); Blood Urea Nitrogen 8 mg/dL (9-16); Calcium 8.9 mg/dL (8.4-10.2); Carbon Dioxide 25 mmol/L (22-29); Chloride 107 mmol/L (96-108); Creatinine Clr Calc Pharmacy 86.4; Estimated Glomerular Filt Rate > 60; Glucose Fasting 109 mg/dL (60-99); Potassium 3.6 mmol/L (3.3-5.1); Sodium 143 mmol/L (135-145); Total Protein 6.2 g/dL (6.5-8.0)
[2022-08-29 07:32] VITALS: PULSE 78; RESP 15; O2SAT 98
[2022-08-29] MEDS: Fluticasone/Vilanterol 200/25 BLST.W.DEV 1 PUFF INHALE (07:32)
[2022-08-29 07:58] VITALS: BP 166/74; PULSE 56; RESP 16; TEMP 37; O2SAT 96
[2022-08-29 10:04] VITALS: PULSE 57; PULSE 71; PULSE 84; O2SAT 91; O2SAT 93; O2SAT 96
[2022-08-29] MEDS: Cholecalciferol (Vitamin D3) 25 MCG TABLET 50 MCG PO (10:55)
[2022-08-29] MEDS: Escitalopram Oxalate 10 MG TABLET PO (10:55)
[2022-08-29] MEDS: Cyanocobalamin (Vitamin B-12) 1,000 MCG TABLET 1000 MCG PO (10:55)
[2022-08-29] MEDS: Metoprolol Succinate ER 25 MG TAB.ER.24H PO (10:55)
[2022-08-29] MEDS: Atorvastatin Calcium 20 MG TABLET PO (10:55)
[2022-08-29] MEDS: Ferrous Sulfate 324 MG TABLET.DR PO (10:56)
[2022-08-29] MEDS: Lidocaine 4 % Patch ADH..PATCH 1 PATCH TRANSDERMA (10:56)
--- NOTE | 2022-08-29 11:41 | MHC.CM.PN ---
IMM 08/29/22 Patient is discharged to home with resumption of [facility]. Patient has arranged for family to transport to home.
[2022-08-29 11:47] VITALS: BP 145/68; PULSE 59; RESP 16; TEMP 36.4; O2SAT 96
--- NOTE | 2022-08-29 12:53 | P.DS_ITS ---
DS: Providers Provider Date of Service: 08/29/22 Date of admission: 08/23/22 15:13 Date of discharge: 08/29/22 Primary care physician: Adrianna Richter MD DS: Diagnosis Discharge Diagnosis (1) Pneumonia: Status: Acute (2) HTN (hypertension): Status: Acute (3) Asthma: Status: Acute DS: Summary Hospital Course Hospital Course: This is a 66 yo F with a PMH as outlined below who presents to the ED with complaints of left sided chest pain, plueritic in nature, which began about 3 days prior to admission. She reports associated shortness of breath and nausea due to severe pain. She reports oral intake. She reports fevers and cough. However, she denies a productive cough. Reports generalized malaise. She denies any sick contacts. Denies any anginal symptoms. She denies RUQ pain. [The patient was admitted for RUQ pain and diagnosed with CBD dilatation, gallstones but negative MRCP for stones last month -- she was to f/u with gen surg for karen ctive cholecystectomy).? In the ED patients work up revealed signifincaly elevated WBC 19.5k; CT chest showed left sided consolidation; T bili elevated to 2.5. She was febrile to 101.6; She has been given tylenol, iv rocephin, iv fluids and now will be admitted for further care. Hospital Course Patient admitted to general medical floor and started on ceftriaxone and doxycycline. Over the next 4 days she improved. She was 1st seen by Physical therapy for ambulatory O2 sat assessment; assessment revealed no need for oxygen. She was also seen in consultation by Physical therapy who stated she would do fine at home. She will be discharged home to resume her services and can follow-up with her PCP in 2 weeks Time Spent with Patient Time attestation: Total time spent providing and/or coordinating discharge services: Discharge coordination time: Greater than 30 minutes Quality: Safe Use of Opioids Does Pt have an Active Cancer Diagnosis on the Problem List?: No Quality: Stroke Does the patient have a stroke diagnosis?: No Physical Exam Vital Signs: Vital Signs: Last Vital Signs Temp 97.5 F 08/29/22 11:47 Pulse 59 08/29/22 11:47 Resp 16 08/29/22 11:47 BP 145/68 H 08/29/22 11:47 Pulse Ox 96 08/29/22 11:47 O2 Del Method 08/29/22 11:47 O2 Flow Rate 2 08/29/22 11:47 BMI result Body Mass Index 39.6 Const: Other: Awake alert oriented x3 no acute distress Resp: Other: Diminished at bases but otherwise clear to auscultations with scant expiratory wheezes Cardio: Other: No S4; positive S1-S2; no S3 murmurs rubs or gallops GI: Other: Soft positive bowel sounds Extrem: Other: No edema bilaterally DS: Data Data Completed and Pending Labs on day of discharge: Laboratory Results - last 24 hr 08/29/22 08/29/22 06:37 06:37 WBC 7.4 RBC 4.33 Hgb 10.6 L Hct 33.5 L MCV 77.4 L MCH 24.5 L MCHC 31.6 RDW 15.4 Plt Count 298 D MPV 8.9 L Immature Gran % (Auto) 3.5 H Neut % (Auto) 61.5 Lymph % (Auto) 24.7 [place] % (Auto) 6.4 Eos % (Auto) 3.1 Baso % (Auto) 0.8 Lymph # (Auto) 1.8 [place] # (Auto) 0.5 Eos # (Auto) 0.2 Baso # (Auto) 0.1 Abs Immat Gran (auto) 0.26 H Absolute Neuts (auto) 4.5 Absolute Nucleated RBC 0.000 Nucleated RBC % (auto) 0.0 Sodium 143 Potassium 3.6 Chloride 107 Carbon Dioxide 25 Anion Gap 15 BUN 8 L Creatinine 0.63 Estim Creat Clear Calc 86.4 Estimated GFR > 60 Fasting Glucose 109 H Calcium 8.9 Total Bilirubin 0.8 AST 29 ALT 39 H Alkaline Phosphatase 189 H Total Protein 6.2 L Albumin 3.0 L Discharge Plan Discharge Anticipated Discharge Date/Time: 08/29/22 12:45 Patient Disposition: Home Health Service Discharge Diagnosis: Left lower lobe pneumonia Referrals: Adrianna Sharp MD [Primary Care Provider] - 1 Week (call office to schedule follow up) Discharge Medications: New cefuroxime axetil 500 mg tablet 500 mg PO BID 10 Days Qty: 20 0RF doxycycline hyclate 100 mg tablet 100 mg PO BID 10 Days Qty: 20 0RF ipratropium-albuterol 0.5 mg-3 mg(2.5 mg base)/3 mL solution for nebulization 3 ml inhalation Q6H Qty: 180 1RF Continued (DME) miscellaneous medical supply [facility] See Rx Instructions .ROUTE .MEDSUPPLY Qty: 1 0RF Rx Instructions: GRAB BAR 18 (DME) miscellaneous medical supply [facility] [place] See Rx Instructions .ROUTE .MEDSUPPLY Qty: 1 0RF Rx Instructions: toilet safety frame ([facility] [place]) Ultra-Light Rollator [facility] [place] See Rx Instructions .ROUTE .MEDSUPPLY Qty: 1 0RF Rx Instructions: As directed Proair Digihaler 90 mcg/actuation aero powdr breath act w/sensor 2 inh inhalation Q4-6H PRN (Reason: shortness of breath or wheezing) 30 Days Qty: 1 6RF metoprolol succinate 25 mg tablet extended release 24 hr 25 mg PO DAILY 90 Days Qty: 90 3RF furosemide 20 mg tablet 20 mg PO DAILY 90 Days Qty: 90 3RF cyanocobalamin (vitamin B-12) [Vitamin B-12] 1,000 mcg tablet 1,000 mcg PO DAILY Qty: 90 1RF atorvastatin 20 mg tablet 20 mg PO DAILY 90 Days Qty: 90 3RF cholecalciferol (vitamin D3) [Vitamin D3] 50 mcg (2,000 unit) tablet 50 mcg PO DAILY Qty: 30 5RF oxycodone-acetaminophen 10-325 mg tablet 1 tab PO Q6H PRN (Reason: pain) 30 Days Qty: 120 0RF meclizine 25 mg Tablet 25 mg PO DAILY PRN (Reason: Dizziness) escitalopram oxalate 10 mg tablet 1 tab PO DAILY ferrous sulfate 324 mg (65 mg iron) Tablet,Delayed Release (Dr/Ec) 324 mg PO DAILY Qty: 30 0RF calcium carbonate [Calcium 600] 600 mg calcium (1,500 mg) tablet 600 mg PO BID 90 Days Qty: 180 3RF albuterol sulfate 2.5 mg /3 mL (0.083 %) solution for nebulization 2.5 mg inhalation Q6H PRN (Reason: bronchospasm) 30 Days Qty: 75 1RF fluticasone furoate-vilanterol [Breo Ellipta] 200-25 mcg/dose blister with device 1 inh inhalation DAILY 30 Days Qty: 1 6RF Discharge Orders: Discharge Order (Routine); Ordered 08/29/22 Ordered By: Zaki Romero Diet: Advance to usual diet Activity on Discharge: As tolerated Stand Alone Forms: Patient Portal Discharge page Care Plan Goals: Complete course of doxycycline 100 mg twice daily for 10 days along with Ceftin 500 mg twice daily times 10 days Health Concerns: DuoNebs 4 times a day for 1 week then q.6 hours as needed Plan of Treatment: Follow-up with PCP 2 weeks Assessment: See discharge summary
[2022-08-29 12:55] VITALS: BP 145/68; PULSE 59; O2SAT 96
--- NOTE | 2022-10-01 15:04 | P.CDIR_ITS ---
Documented by User: Suyapa Penny RN 10/01/22 15:12 Retrospective Query PHYSICIAN'S DOCUMENTATION REQUEST Date of Query: 10/01/22 [id number] Patient Name: Marita Murray Admit Date: 08/23/22 Dear Doctor, A review of the medical record indicates additional documentation may be needed. Please review below and update the documentation accordingly. Clinical Indicators: Documentation on all provider progress notes include the diagnosis of severe sepsis. Please include in discharge summary if you agree with this diagnosis. The patient's infectious clinical indicators include: Risk Factors/Clinical Indicators/Treatments ? POA/RESOLVED/TREAT/RULE OUT LABS & VITALS: 08/23 WBC: 19.5 08/24 TEMP: 102 ADMINISTERED MEDICATIONS: Doxycycline Ceftriaxone PER PROVIDER NOTES: CAP causing severe? sepsis -Sepsis resolved -continue doxycycline/ceftriaxone admitted for sepsis due to PNA CAP causing severe [due to hyperbilirubinemia] sepsis Sepsis resolved ? Recognized standard criteria for this condition and other infectious definitions includes: Sepsis ?? Systemic manifestations of infection, with 2 or more SIRS criteria which include: * Fever > 100.4?F or hypothermia < 96.8?F * Leukocytosis ? WBC > 12,000 or leukopenia, WBC < 4,000, or > 10% bands * Tachycardia- > 90 beats/minute * Tachypnea- RR > 20 breaths/minute or PaCO2 < 32mmHg Source: Merck Manual 2013 ?? Documentation should include the known or suspected organism, and the underlying ? ? infection, such as UTI or pneumonia Severe Sepsis ?? Sepsis with associated acute organ dysfunction, such as renal or respiratory failure ?? Documentation should indicate the association between the sepsis and the organ dysfunction Septic Shock ?? Severe sepsis with associated with circulatory failure, evidenced by hypotension and hypoperfusion Based on the above information and the recognized standard for sepsis, could you please clarify?in the Progress Notes? if this diagnoses is still accurate and reflective of the patient's condition to ensure quality of the medical record. ? * Sepsis is/was present and is a clinical diagnosis based on (please include this additional support in the medical record) * After study (the condition) has been ruled out * Other?(please specify) * Unable to determine?? Use of terms such as suspected, likely, concern for, or probable (associated with a specific diagnosis that is being evaluated, monitored, or treated as if it exists) are acceptable and can be coded in the inpatient setting, when documented at the time of discharge. Thank you, Suyapa Penny MS, RN, CCRN Extension: [phone] Please use your independent medical judgment in providing your response. THIS QUERY IS PART OF THE PERMANENT MEDICAL RECORD Documented by User: Zaki Romero DO 11/10/22 12:36 Retrospective Query Provider Response: Other (Meets sepsis criteria with fevers and leukocytosis; severe features of elevated bilirubin)
== END 2022-08-29 14:28 | disposition home health service (06) | DRG 871 ==
LOC: HO.ED 12:10 → HO.EDOVER 15:27 → HO.IMC 21:15
PROVIDERS: Family Medicine; Physician Assistant; Admitting Provider Family Medicine; Emergency Provider Emergency Medicine; PCP Internal Medicine; Visit Provider Hospitalist
DX: A41.9 Sepsis, unspecified organism (principal); J18.9 Pneumonia, unspecified organism; J96.01 Acute respiratory failure with hypoxia; F33.9 Major depressive disorder, recurrent, unspecified; J45.901 Unspecified asthma with (acute) exacerbation; E78.5 Hyperlipidemia, unspecified; I10 Essential (primary) hypertension; E66.01 Morbid (severe) obesity due to excess calories; E53.8 Deficiency of other specified B group vitamins; Z68.39 Body mass index [BMI] 39.0-39.9, adult; R65.20 Severe sepsis without septic shock; Z85.3 Personal history of malignant neoplasm of breast; Z20.822 Contact with and (suspected) exposure to COVID-19; Z96.653 Presence of artificial knee joint, bilateral; Z91.040 Latex allergy status; Z79.51 Long term (current) use of inhaled steroids; Z79.899 Other long term (current) drug therapy
CPT/HCPCS: 0241U; 36415; 71260; 74177; 80048; 80053; 80076; 83605; 84145; 85025; 85027; 87040; 87070; 87205; 87449; 87633; 87899; 94640; 97116; 97162; 99212; 99284; J0696; J2270; J2405; Q9967

== ENCOUNTER 2022-09-10 15:46 | Outpatient (REF) | payer MEDICARE, MEDICAID, SELFPAY ==
--- NOTE | 2022-09-10 17:33 | PFT_ITS ---
INDICATION: Dyspnea. SPIROMETRY: FEV1 to FVC 79% with an FEV1 of 1.09 L, which is 59% predicted. An FVC of 1.37 L, which is 56% predicted. There was a significant response to bronchodilators noted. The [id number] was down to 45% predicted maximum voluntary ventilation 35% predicted. LUNG VOLUMES: Total lung capacity 65% predicted. DIFFUSION CAPACITY: DLCO 68% predicted. It did correct to 117% when correcting for the alveolar volume. COMPARISONS: None. INTERPRETATION: No obstructive ventilatory defect. There was a significant response to bronchodilators noted and also evidence of small airways disease. There was also severe decrease in maximum voluntary ventilation secondary to deconditioning although cannot rule out neuromuscular conditions. Lung volumes do demonstrate a restrictive ventilatory defect consistent with moderate restrictive lung disease. Again, need to consider interstitial lung conditions, however, neuromuscular conditions need to be in the differential as well. There is a mild diffusion impairment, although it does correct to normal when correcting for the alveolar volume. Clinical correlation warranted. Boris Blakely MD MR/MODL / [id number]
== END 2022-09-10 15:47 | disposition home or self-care (01) ==
LOC: HO.RESP 15:46
PROVIDERS: PCP Internal Medicine; Visit Provider Internal Medicine Pulmonary Disease
DX: J45.30 Mild persistent asthma, uncomplicated (principal)
CPT/HCPCS: 94060; 94727; 94729

== ENCOUNTER → 2022-09-27 11:02 | Outpatient (BNVA) | payer MEDICARE, MEDICAID, SELFPAY | PROVIDERS: PCP Internal Medicine; Visit Provider Internal Medicine Pulmonary Disease | DX: J45.40 Moderate persistent asthma, uncomplicated (principal); G47.33 Obstructive sleep apnea (adult) (pediatric); Z79.899 Other long term (current) drug therapy | CPT/HCPCS: 99212 ==

== ENCOUNTER → 2022-10-31 13:58 | Outpatient (BNVA) | payer MEDICARE, MEDICAID, SELFPAY | PROVIDERS: PCP Internal Medicine; Referring Provider Internal Medicine; Visit Provider Internal Medicine | DX: Z01.810 Encounter for preprocedural cardiovascular examination (principal); I44.7 Left bundle-branch block, unspecified; I35.0 Nonrheumatic aortic (valve) stenosis | CPT/HCPCS: 99202 ==

== ENCOUNTER → 2022-11-12 09:20 | Outpatient (REF) | payer MEDICARE, MEDICAID, SELFPAY ==
--- NOTE | ~2022-11-12 | NM_ITS ---
Myocardial perfusion study Indication: Chest pain to evaluate for myocardial ischemia Technique: The patient was brought in for a Lexiscan perfusion study on 11/12/2022. Patient performed low-level exercise and was injected 0.4 mg of Lexiscan intravenously. Within a minute of injection, 35 mCi of sestamibi was given intravenously. Images were obtained using the SPECT gamma camera interlaced with the gating device. Images were obtained in supine position. Resting perfusion study was performed on 11/13/2022. Patient was administered 35 mCi of sestamibi intravenously at rest. Images were then obtained in supine position. Images were processed with the software and compared side to side in short axis, horizontal long axis and vertical long axis views. Findings: The stress perfusion study showed non attenuated images show moderately reduced uptake in the distal lateral and inferolateral wall of the LV myocardium as well as mildly to moderately reduced uptake in the inferior wall of the LV myocardium. Attenuation corrected images are of suboptimal quality but that shows moderate to severely reduced uptake in the apex and mildly reduced uptake in the septum, anteroseptal and anterior wall of the LV myocardium.. The gated study shows normal LV systolic function with calculated LVEF of 50%. LV cavity is normal in size. The gated study shows normal systolic wall thickening and contraction of segments. Resting study shows nontender images show moderately to severely reduced uptake in the distal lateral, and mildly reduced uptake in the inferior wall of the LV myocardium. Attenuation corrected images show uptake in the anterior septum of the LV myocardium with moderate to severely reduced uptake in the apex of the LV myocardium.. Gating at rest reveals normal systolic wall motion with ejection fraction at greater than 50%. The findings are consistent with equivocal for mild intensity anterior and septal ischemia with fixed apical defect suggestive of nontransmural infarct.. NM/NM cardiolite stress test Impression: 1. Myocardial perfusion imaging study shows possible anterior septal ischemia with apical nontransmural infarct 2. Gated LVEF is 50% 3. Transient ischemic dilatation not present EKG is nondiagnostic for ischemia
--- NOTE | 2022-11-12 11:18 | CA_ITS ---
Acquisition Time: 2022-11-12 09:38:55 Total Exercise Time: 00:02:00 Test Indications: LBBB Medications: SEE CHART Protocol: LEXISCAN Max HR: 091 BPM 59% of Pred: 152 BPM Max BP: 128/088 mmHG Max Work Load: 1.0 METS Pharmacological stress test with Lexiscan injection, while sitting, without anginal symptoms, with one PVC, with normotensive response to injection, with nondiagnostic EKG for ischemia. In recovery she did report having a tightness in her chest and weird feeling in her head that was treated with Aminophylline 75mg IVP to reverse lexiscan with resolution of symptoms. Nuclear images pending. Test reviewed with Dr Jackson. Referred By: Hector Jackson Overread By: SELVIN DAVIS
== END ==
LOC: HO.CARD 09:20
PROVIDERS: Visit Provider Internal Medicine
DX: Z01.810 Encounter for preprocedural cardiovascular examination (principal); R07.2 Precordial pain; I20.9 Angina pectoris, unspecified
CPT/HCPCS: 78452; 93017; A9500; J0280; J2785

== ENCOUNTER 2022-12-05 10:11 | Outpatient (REF) | payer OTHER, SELFPAY ==
[2022-12-05 10:52] LABS: Hematocrit 41.2 % (37.0-47.0); Mean Corpuscular HGB Conc 31.6 g/dl (31.0-35.0); Mean Corpuscular Hemoglobin 24.8 pg (27.0-33.0); Mean Corpuscular Volume 78.6 fL (80.0-98.0); Mean Platelet Volume 9.6 fL (9.4-12.3); Platelet Count 234 X10*3/uL (160-400); Red Blood Count 5.24 X10*6/uL (4.20-5.50); Red Cell Distribution Width 15.2 % (11.0-16.0); White Blood Count 11.1 X10*3/uL (4.8-10.8)
[2022-12-05 10:55] LABS: Prothrombin Time 11.2 SEC (10.0-13.1)
[2022-12-05 11:33] LABS: Alanine Aminotransferase 15 U/L (0-31); Albumin Level 4.1 g/dL (3.5-5.0); Alkaline Phosphatase 96 U/L (39-117); Anion Gap 15 (12-20); Aspartate Amino Transferase 16 U/L (5-31); Bilirubin Direct 0.3 mg/dL (0.0-0.5); Bilirubin Total 1.3 mg/dL (0.0-1.0); Blood Urea Nitrogen 15 mg/dL (9-16); Calcium 10.1 mg/dL (8.4-10.2); Carbon Dioxide 27 mmol/L (22-29); Chloride 105 mmol/L (96-108); Estimated Glomerular Filt Rate > 60; Glucose Random 100 mg/dL (60-115); Iron 57 mcg/dL (30-160); Percent Iron Saturation 17 % (15-50); Potassium 4.1 mmol/L (3.3-5.1); Sodium 143 mmol/L (135-145); Total Iron Binding Capacity 336 mcg/dL (228-428); Unsaturated Iron Binding 279 ug/dL
[2022-12-05 11:39] LABS: Thyroid Stimulating Hormone 3.23 uIU/mL (0.32-4.0)
== END 2022-12-05 10:12 | disposition home or self-care (01) ==
LOC: HO.LAB 10:11
PROVIDERS: Surgery; Absent Provider Internal Medicine; PCP Internal Medicine; Visit Provider Internal Medicine
DX: L65.9 Nonscarring hair loss, unspecified (principal); D64.9 Anemia, unspecified; I44.7 Left bundle-branch block, unspecified; K80.20 Calculus of gallbladder without cholecystitis without obstruction
CPT/HCPCS: 36415; 80048; 80076; 83540; 84443; 85027; 85610

== ENCOUNTER 2022-12-10 15:06 | Outpatient (REF) | payer OTHER, SELFPAY ==
--- NOTE | ~2022-12-10 | XR_ITS ---
EXAMINATION: XR CHEST CLINICAL INFORMATION: Dyspnea COMPARISON: Previous chest x-ray most recent January [address] August 2022 TECHNIQUE: 2 views of the chest were obtained. FINDINGS: The cardiac and mediastinal contours are stable. The lung volumes are low. There are prominent central bronchial markings. Appearance is questionable for asthma or airways disease. The lungs are otherwise clear. Previously identified left lower lobe pneumonia appears improved by chest x-ray. No pleural effusion or pneumothorax. Degenerative changes of the spine. XR/XR chest 2V IMPRESSION: Low lung volumes and increased central bronchial markings questionable for asthma or bronchitis.
== END 2022-12-10 15:07 | disposition home or self-care (01) ==
LOC: HO.XRAY 15:06
PROVIDERS: PCP Internal Medicine; Visit Provider Internal Medicine
DX: R06.00 Dyspnea, unspecified (principal)
CPT/HCPCS: 71046

== ENCOUNTER → 2023-01-02 14:50 | Outpatient (BNVA) | payer OTHER, SELFPAY | PROVIDERS: PCP Internal Medicine; Referring Provider Internal Medicine; Visit Provider Nurse Practitioner Family | DX: R94.39 Abnormal result of other cardiovascular function study (principal); I44.7 Left bundle-branch block, unspecified; I35.0 Nonrheumatic aortic (valve) stenosis; Z79.899 Other long term (current) drug therapy; Z98.890 Other specified postprocedural states | CPT/HCPCS: 99212 ==

== ENCOUNTER → 2023-02-20 13:09 | Outpatient (BNVA) | payer OTHER, SELFPAY | PROVIDERS: PCP Internal Medicine; Visit Provider Internal Medicine Pulmonary Disease | DX: J45.30 Mild persistent asthma, uncomplicated (principal); R06.00 Dyspnea, unspecified | CPT/HCPCS: 99212 ==

== ENCOUNTER 2023-04-24 20:53 | Inpatient (IN) | payer OTHER, SELFPAY ==
--- NOTE | ~2023-04-24 | FL_ITS ---
EXAMINATION: XR FLUOROSCOPY WITH IMAGES CLINICAL INFORMATION: Attempted ERCP COMPARISON: None available. TECHNIQUE: Fluoroscopy Supervised By: Dr. Danielle Friedman. Fluoroscopy Time: 48.9 seconds. Cumulative Dose: 30.33 mGy. DAP: Not provided Gycm2. Equipment does not provide dose area product Images: 1. FINDINGS: Endoscope present. Surgical clips right upper quadrant. No contrast identified FL/FL guidance in OR IMPRESSION: Imaging assistance provided during an endoscopic procedure
[2023-04-24 21:05] VITALS: BP 122/76; PULSE 74; O2SAT 94
[2023-04-24 21:23] VITALS: BP 139/62; PULSE 74; RESP 16; TEMP 37.1; O2SAT 91; BMI 42.4
--- NOTE | 2023-04-24 21:32 | PC.NURSE ---
viscose cellar charge hand notified pt o2 low 90%s placed on 2L nc charge to follow up to this rn for dispo
[2023-04-24 22:36] VITALS: BP 125/46; PULSE 74; RESP 20; TEMP 37; O2SAT 97
--- NOTE | 2023-04-24 22:53 | ED.ABDPAIN ---
HPI - Abdominal Pain General Chief Complaint: Abdominal Pain Stated Complaint: abd pain Time Seen by Provider: 04/24/23 22:29 Source: patient Mode of arrival: ambulatory Limitations: no limitations History of Present Illness HPI narrative: Patient is a 67-year-old female who presents to emergency department for evaluation of right upper quadrant/epigastric abdominal pain with nausea and vomiting. Reports onset of pain to be 3 days ago. Had been progressively worsening. Became severe today, and vomited a small amount of ?yellow bile?. She took an antiemetic prior to arrival to the hospital, does not recall the name, nausea has improved at this time. She denies any fevers, chills, chest pain, lower abdominal pain, flank pain constipation, diarrhea, urinary frequency/urgency/hesitancy, hematuria. Patient reports similar pain in the past when found to have complications with her gallbladder. Related Data Home Medications Medication Instructions Recorded Confirmed meclizine 25 mg tablet 25 mg PO DAILY PRN Dizziness 08/02/20 01/02/23 Previous Rx's Medication Instructions Recorded miscellaneous medical supply #1 ea 11/08/20 miscellaneous medical supply #1 ea 11/08/20 walker (Ultra-Light Rollator misc) #1 ea 11/08/20 albuterol sulfate 90 mcg/actuation 2 inh inhalation Q4-6H PRN 10/05/21 breath activated powder shortness of breath or wheezing 30 inhaler,sensor (Proair Digihaler) days #1 ea ipratropium 0.5 mg-albuterol 3 mg 3 ml inhalation Q6H #180 mL 08/29/22 (2.5 mg base)/3 mL nebulization soln albuterol sulfate 2.5 mg/3 mL 2.5 mg (3 mL) inhalation Q6H PRN 09/04/22 (0.083 %) solution for nebulization bronchospasm 30 days #75 mL nebulizers (AeroEclipse II #1 ea 09/04/22 Nebulizer) Advair HFA 230 mcg-21 2 puff inhalation Q12H 30 days #1 09/27/22 mcg/actuation aerosol inhaler ea (fluticasone propion-salmeterol) guaifenesin 600 mg tablet, 600 mg PO BID 10 days #20 tabs 10/01/22 extended release 12 hr (Mucinex) metoprolol succinate 25 mg 25 mg PO DAILY 90 days #90 tabs 11/03/22 tablet,extended release 24 hr nystatin 100,000 unit/mL oral 1 ml buccal DAILY PRN oral thrush 11/27/22 suspension 60 days #60 mL cyanocobalamin (vitamin B-12) 1,000 mcg PO DAILY #90 tabs 12/07/22 1,000 mcg tablet (Vitamin B-12) escitalopram oxalate 10 mg tablet 10 mg PO DAILY 90 days #90 tabs 01/22/23 furosemide 20 mg tablet 20 mg PO DAILY 90 days #90 tabs 01/22/23 cholecalciferol (vitamin D3) 50 50 mcg PO DAILY #30 tabs 02/16/23 mcg (2,000 unit) tablet (Vitamin D3) prednisone 10 mg tablet 20 mg PO DAILY 5 days #10 tabs 02/24/23 atorvastatin 20 mg tablet 20 mg PO DAILY 90 days #90 tabs 04/06/23 ferrous sulfate 324 mg (65 mg 324 mg PO DAILY 90 days #90 tabs 04/06/23 iron) tablet,delayed release alprazolam 0.5 mg tablet 0.5 mg PO DAILY 1 day #1 tab 04/14/23 oxycodone-acetaminophen 10 mg-325 1 tab PO Q6H PRN pain 30 days #120 04/14/23 mg tablet tabs ondansetron 8 mg disintegrating 8 mg PO Q8H PRN nausea and 04/23/23 tablet vomiting 30 days #90 tabs Allergies Allergy/AdvReac Type Severity Reaction Status Date / Time latex [LATEX] Allergy Intermediate RASH Verified 02/20/23 13:15 Review of Systems Review of Systems Constitutional : No Weight loss, No Fever, No Chills ENT/Mouth :? No sore throat, No Rhinorrhea Eyes: No Swelling, No Redness Cardiovascular : No Chest Pain, positive SOB, No Edema Respiratory : No Cough, No Sputum, No Wheezing Gastrointestinal : Positive Nausea, Positive Vomiting, no Diarrhea, positive abdominal pain, No Hematochezia, No Melena Genitourinary : No Dysuria, No Urinary Frequency, No Hematuria, No Urgency? Musculoskeletal : No joint pain, No Myalgias, No Joint Swelling Skin : No Skin Lesions, No rash Neuro : No Weakness, No Numbness, No Dizziness, No Headache Psych : No Anxiety/Panic, No Depression Heme/Lymph: No Bruising, No Lymphadenopathy Endocrine : No Polyuria, No Polydipsia Yes all other systems are reviewed and are negative [facility] Past Medical History Attestation statement: The following information was validated with the patient. Source: old records reviewed Medical History (Updated 04/25/23 @ 01:45 by Eva Wynn CNP) Abdominal pain Arthritis Asthma B12 deficiency Back pain Biliary colic Breast cancer Chronic pain Common bile duct dilation Constipation Depression Dizziness Dyslipidemia Elevated TSH Foot pain, bilateral Gallstones Hair loss Hair loss History of left bundle branch block (LBBB) History of pernicious anemia History of trigger finger History of vitamin D deficiency HTN (hypertension) Lumbar degenerative disc disease Mild aortic stenosis Mild recurrent major depression Moderate persistent asthma Morbid obesity Morbid obesity Murmur On beta mel at home Right hip pain Sleep apnea Tinnitus Surgical History History of cardiac cath History of dilation and curettage History of lymph node dissection of left axilla History of total left knee replacement (TKR) History of total right knee replacement (TKR) Hx of bilateral cataract extraction Hx of colonoscopy Hx of esophagogastroduodenoscopy S/P lumpectomy, left breast Family History Family History Father Prostate cancer Hypertension Mother Skin cancer Dementia Diabetes Daughter Lupus Maternal Grandmother Diabetes Hypertension Maternal Grandfather No problems noted. Paternal Grandmother No problems noted. Paternal Grandfather Cancer Brother Prostate cancer Social History Social History Household Members: Spouse and Family Household Members Other:: Graddaughter Housing: House Do you presently have visiting nurse or other home services: Yes Alcohol intake: never Patient Tobacco Use Status: Never used Tobacco e-Cigarette/Vaping Use: Never Used Second Hand Smoke Exposure: No Substance Use Type: Marijuana Advance Directives: Yes Advance Directives on File: Yes Advance Directives Date on File: 08/05/22 service: No Current occupational status: disabled Cognitive needs: Yes Hearing needs: No Vision needs: Yes Physical Exam ED Vital Signs: Vital Signs - 24 hr 04/24/23 21:23 04/24/23 22:36 04/25/23 00:49 Temperature 98.8 F 98.6 F 99.0 F Pulse Rate 74 74 74 Respiratory Rate 16 20 18 Blood Pressure 139/62 125/46 L 145/58 H Pulse Oximetry 91 L 97 99 Oxygen Delivery Method Room Air Nasal Cannula Room Air Oxygen Flow Rate 2 BMI result Body Mass Index 42.4 Appearance: Alert.?Oriented to person, place and time. No acute distress.?Normal affect. Eyes: Pupils equal, round and reactive to light.? ENT: Pharynx normal.?? Neck: Normal inspection.? Neck supple.?? CVS: Heart sounds normal. Normal heart rate and rhythm.? Pulses normal.?? Respiratory: No respiratory distress.? Lung sounds clear to auscultation bilaterall, diminished at the bases? Abdomen: Soft with right upper quadrant and epigastric tenderness upon palpation. Positive Diggs sign.. Normoactive bowel sounds. No CVA tenderness. ? Skin: Skin warm and dry.? Normal skin color.? Extremities: No lower extremity edema.? Neuro: Moves all extremities spontaneously. Sensation intact bilaterally. No focal neuro deficits. Ambulates with normal steady gait. Procedures EJ/Peripheral Line Arm R: Time Out Performed: Yes Skin Cleansed in Sterile Fashion: Yes Size (gauge): 20 IV Secured and Dressing Applied: Yes Patient Tolerated Procedure: well Additional Comments: Ultrasound-guided Course Reevaluation(s) Reevaluation #1: CBC reveals no leukocytosis. CMP is overall unremarkable. Elevated transaminases which appears consistent with prior levels when patient was found to have dilated CBD and it was thought that patient did had passed potential gallbladder stone or sludge. Lipase is however within normal limits. Abdominal ultrasound reveals cholelithiasis without evidence of cholecystitis, common bile duct 5 mm. Concern at this time for choledocholithiasis, likely will require MRCP. Spoke with hospitalist, Dr. Arreguin, accept this patient for admission to medicine service. US guided IV access obtained, see procedures. Chest x-ray is without any acute cardiopulmonary process, O2 saturation while at rest has remained 93%, as noted previously likely due to asthma. Time: 00:09 Medical Decision Making Medical Decision Making MDM Narrative: Patient is a 67-year-old female with past medical history of depression, nonrheumatic aortic stenosis, asthma, anemia, obesity, gallstones, obstructive sleep apnea, hypertension, hyperlipidemia who presents emergency department for evaluation of abdominal pain as per HPI. I reviewed prior hospital admission from July of 2022 in addition outpatient follow-up with General surgery August of 2022, patient was to undergo elective laparoscopic cholecystectomy however she was to have cardiology clearance, and she reports that she had no continued issues with pain therefore she did not follow up with this. At this time changes consistent with prior event. Will obtain CBC to evaluate for leukocytosis/ anemia, CMP and lipase to evaluate for abnormal electrolytes /abnormal renal function/ abnormal hepatic/biliary function, EKG to evaluate for ischemia/ACS. and Urinalysis. Patient had low normal O2 saturation; 90-92% on room air with reports of some shortness of breath the patient reports this is baseline due to her asthma however she does not use O2 at baseline. Lung sounds are clear though slightly diminished at the bases, this may be in part due to body habitus. I have a lower suspicion for pneumonia, pneumothorax, pleural effusion however will obtain chest x-ray for further evaluation, this is likely due to her chronic asthma. Differential Diagnosis Differential Diagnoses: The differential diagnosis associated with the presentation includes (Cholecystitis, cholelithiasis, choledocholithiasis, cholangitis, pancreatitis, nephrolithiasis, pneumonia, pleural effusion, pneumothorax) Admission/Observation Consideration of admission/observation: Escalation of care including admission/observation considered (Consider admission for abdominal pain, please see course narrative.) Lab Data MDM Lab Attestation statement: I reviewed the patient's lab results. (See course for narrative) 04/24/23 21:45 04/24/23 21:45 Labs: Lab Results 04/24/23 04/24/23 Range/Units 21:45 21:45 WBC 7.5 (4.8-10.8) X10*3/uL RBC 5.05 (4.20-5.50) X10*6/uL Hgb 13.0 (12.0-16.0) g/dl Hct 40.2 (37.0-47.0) % MCV 79.6 L (80.0-98.0) fL MCH 25.7 L (27.0-33.0) pg MCHC 32.3 (31.0-35.0) g/dl RDW 15.6 (11.0-16.0) % Plt Count 209 (160-400) X10*3/uL MPV 9.3 L (9.4-12.3) fL Absolute Nucleated RBC 0.000 (0.0-0.012) X10*3/uL Nucleated RBC % (auto) 0.0 (0.0-0.2) /100WBC Sodium 139 (135-145) mmol/L Potassium 3.6 (3.3-5.1) mmol/L Chloride 102 (96-108) mmol/L Carbon Dioxide 25 (22-29) mmol/L Anion Gap 16 (12-20) BUN 13 (9-16) mg/dL Creatinine 0.79 (0.5-1.4) mg/dL Estim Creat Clear Calc 67.9 Estimated GFR > 60 Random Glucose 131 H (60-115) mg/dL Calcium 10.1 (8.4-10.2) mg/dL Total Bilirubin 2.9 H (0.0-1.0) mg/dL AST 227 H (5-31) U/L ALT 229 H (0-31) U/L Alkaline Phosphatase 188 H (39-117) U/L Total Protein 7.5 (6.5-8.0) g/dL Albumin 4.1 (3.5-5.0) g/dL Lipase 28 (8-78) U/L Independent Interpretation I performed an independent interpretation of an: EKG and Plain X-Ray (I have personally interpreted chest x-ray imaging, agree with radiologist's impression, no evidence of consolidation, pneumothorax, pulmonary edema) Interpretation: Rate: 73 Rhythm:? Normal sinus rhythm with left bundle-branch block Normal P waves.? Normal AMRITA.?? Normal QRS complex.?? ST T wave :??No ST elevation, no ST depression qTC: 467 The study has been interpreted contemporaneously by me. Radiology Impression Discussion of test interpretation with radiology: I have reviewed the radiologist's reading. Radiologist Impression: XR/XR chest 2V IMPRESSION: No acute abnormality of chest. ? US/US abdomen limited IMPRESSION: Cholelithiasis without sonographic evidence of cholecystitis. Discharge Plan Discharge Clinical Impression: Biliary colic Patient Disposition: Admitted As Inpatient
[2023-04-25] VITALS (19 sets, daily range): BP systolic 123–178; BP diastolic 56–75; PULSE 65–89; RESP 16–24; TEMP 36–37.9; O2SAT 90–99
--- NOTE | 2023-04-25 01:14 | PM.IMHP ---
History of Present Illness Date of Service: 04/25/23 Chief Complaint: Abdominal pain This is a 67-year-old female with pertinent history of essential hypertension, mood disorder, asthma, mixed hyperlipidemia who presents to the emergency department for evaluation of abdominal pain. Patient states she started having right upper quadrant abdominal pain, nonradiating 2 days prior to presentation. It was worse with p.o. intake and associated with nausea and vomiting. The pain was progressive and worse on the day of presentation and hence patient decided to present to the hospital. Patient was admitted in July [address] showed dilated common bile duct. Patient underwent MRCP which did not reveal a stone. Patient's LFTs normalized and it was thought that she had passed CBD stone. Patient was supposed to follow-up with general surgery for laparoscopic cholecystectomy but never underwent gallbladder removal. Patient denies fever, chills, chest discomfort, palpitations, shortness of breath, changes in urinary or bowel habits. In the emergency department, imaging with cholelithiasis. LFTs found to be elevated Review of Systems Constitutional: Constitutional: Reports no additional constitutional complaints Cardiovascular: Cardiovascular: Reports no additional cardiovascular complaints Respiratory: Respiratory: Reports no additional respiratory complaints Gastrointestinal: Gastrointestinal: Reports abdominal pain, Reports nausea and Reports vomiting Genitourinary: Genitourinary: Reports no additional female genitourinary complaints [facility] Medical History (Updated 04/25/23 @ 01:27 by Juany Arreguin MD) Abdominal pain Arthritis Asthma B12 deficiency Back pain Biliary colic Breast cancer Chronic pain Common bile duct dilation Constipation Depression Dizziness Dyslipidemia Elevated TSH Foot pain, bilateral Gallstones Hair loss Hair loss History of left bundle branch block (LBBB) History of pernicious anemia History of trigger finger History of vitamin D deficiency HTN (hypertension) Lumbar degenerative disc disease Mild aortic stenosis Mild recurrent major depression Moderate persistent asthma Morbid obesity Morbid obesity Murmur On beta mel at home Right hip pain Sleep apnea Tinnitus Family History Father Prostate cancer Hypertension Mother Skin cancer Dementia Diabetes Daughter Lupus Maternal Grandmother Diabetes Hypertension Maternal Grandfather No problems noted. Paternal Grandmother No problems noted. Paternal Grandfather Cancer Brother Prostate cancer Surgical History History of cardiac cath History of dilation and curettage History of lymph node dissection of left axilla History of total left knee replacement (TKR) History of total right knee replacement (TKR) Hx of bilateral cataract extraction Hx of colonoscopy Hx of esophagogastroduodenoscopy S/P lumpectomy, left breast Social History Household Members: Spouse and Family Household Members Other:: Graddaughter Housing: House Do you presently have visiting nurse or other home services: Yes Alcohol intake: never Patient Tobacco Use Status: Never used Tobacco e-Cigarette/Vaping Use: Never Used Second Hand Smoke Exposure: No Substance Use Type: Marijuana Advance Directives: Yes Advance Directives on File: Yes Advance Directives Date on File: 08/05/22 service: No Current occupational status: disabled Cognitive needs: Yes Hearing needs: No Vision needs: Yes Meds Allergies Allergy/AdvReac Type Severity Reaction Status Date / Time latex [LATEX] Allergy Intermediate RASH Verified 02/20/23 13:15 Home Medications Medication Instructions Recorded Confirmed Last Taken Type meclizine 25 mg tablet 25 mg PO DAILY PRN Dizziness 08/02/20 01/02/23 Unknown History Physical Exam Vital Signs and Narrative: Vital Signs: Last Vital Signs Temp 99.0 F 04/25/23 00:49 Pulse 74 04/25/23 00:49 Resp 18 04/25/23 00:49 BP 145/58 H 04/25/23 00:49 Pulse Ox 99 04/25/23 00:49 O2 Del Method Room Air 04/25/23 00:49 O2 Flow Rate 2 04/24/23 22:36 BMI result Body Mass Index 42.4 Middle-aged female lying in bed in mild distress Neck supple, no JVD Regular rate and rhythm, S1-S2 heard Regular breath sounds bilaterally, no wheezing or crackles appreciated Abdomen with right upper quadrant tenderness, no guarding, no rigidity, no rebound tenderness Patient is awake, alert and oriented to self, place, time and person ; no focal motor deficit Psych: Normal mood No pedal edema Results Labs 04/24/23 21:45 04/24/23 21:45 Labs: Laboratory Results - last 24 hr 04/24/23 04/24/23 21:45 21:45 MCV 79.6 L MCH 25.7 L MCHC 32.3 RDW 15.6 Plt Count 209 MPV 9.3 L Absolute Nucleated RBC 0.000 Nucleated RBC % (auto) 0.0 Anion Gap 16 Estim Creat Clear Calc 67.9 Estimated GFR > 60 Random Glucose 131 H Calcium 10.1 Total Bilirubin 2.9 H AST 227 H ALT 229 H Alkaline Phosphatase 188 H Total Protein 7.5 Albumin 4.1 Lipase 28 Imaging Radiologist's Impressions: Impressions Chest X-Ray 04/24/23 23:12 IMPRESSION: No acute abnormality of chest. Abdomen Ultrasound 04/24/23 23:35 IMPRESSION: Cholelithiasis without sonographic evidence of cholecystitis. Assessment and Plan (1) Biliary colic: Status: Acute Plan This is a 67-year-old female with pertinent history of essential hypertension, mood disorder, asthma, mixed hyperlipidemia who presents to the emergency department for evaluation of abdominal pain. #. Biliary colic with elevated LFTs, concern for choledocholithiasis. Will admit patient and order MRCP. Consulting general surgery. Pain control with IV opioids p.r.n. Will keep patient NPO #. Major depressive disorder. No homicidal or suicidal ideations. Continue home mood stabilizers when no longer NPO #. Essential hypertension. Resume antihypertensives unable to take p.o. #. Asthma. No exacerbation of admission. Continue home inhaler #. Mixed hyperlipidemia. Hold statin #. Morbid obesity. Counseled regarding diet and exercise Med rec pending DVT prophylaxis. SCDs. Holding Lovenox until surgical evaluation Full code Time Spent With Patient Time: Total time managing care of this patient today ____ minutes. Quality Stroke Does the patient have a stroke diagnosis?: No VTE Prior VTE?: No VTE Risk Level:: Medical - moderate - high VTE Device Contraindication: N/A - Device Ordered VTE Drug Contraindication: Treatment Not Indicated
--- NOTE | 2023-04-25 01:50 | PC.NURSE ---
Pt A&Ox4, reports 8/10 intermittent pressure pain to RUQ with N?V and not being able to tolerate PO intake x 3 days. Pt tender to RUQ, Pt reports ABD distension is normal for her, reports last BM was yesterday.
--- NOTE | 2023-04-25 02:00 | PC.NURSE ---
Meds delayed r/t pt being a difficult stick to get IV. Provider aware and at bedside obtaining ultrasound guided IV.
--- NOTE | 2023-04-25 03:05 | PC.NURSE ---
Report given to Marbella SANCHEZ, Pt will be transported to room 350, Pt aware of plan.
[2023-04-25 05:36] LABS: MANUAL DIFF FLAG NO
[2023-04-25 05:42] LABS: Basophils Percent Auto 0.4 % (0-2); Eosinophils Percent Auto 0.1 % (0-4); Hematocrit 39.9 % (37.0-47.0); Hemoglobin 12.6 g/dl (12.0-16.0); Imm Gran Abs Auto 0.04 X10*3/uL (0.00-0.03); Imm Gran Pct Auto 0.4 % (0.0-0.4); Mean Corpuscular HGB Conc 31.6 g/dl (31.0-35.0); Mean Corpuscular Hemoglobin 25.4 pg (27.0-33.0); Mean Corpuscular Volume 80.4 fL (80.0-98.0); Mean Platelet Volume 9.9 fL (9.4-12.3); Monocytes Absolute Auto 0.9 X10*3/uL (0.1-1.2); Monocytes Percent Auto 8.8 % (2-11); Neutrophils Absolute Auto 7.9 x10*3/uL (2.0-8.3); Neutrophils Percent Auto 80.3 % (45-73); Platelet Count 190 X10*3/uL (160-400); Red Blood Count 4.96 X10*6/uL (4.20-5.50); Red Cell Distribution Width 15.5 % (11.0-16.0); White Blood Count 9.8 X10*3/uL (4.8-10.8)
[2023-04-25 06:02] LABS: Anion Gap 16 (12-20); Blood Urea Nitrogen 11 mg/dL (9-16); Calcium 9.4 mg/dL (8.4-10.2); Carbon Dioxide 25 mmol/L (22-29); Chloride 101 mmol/L (96-108); Creatinine Clr Calc Pharmacy 71.5; Estimated Glomerular Filt Rate > 60; Glucose Random 125 mg/dL (60-115); Sodium 138 mmol/L (135-145)
[2023-04-25 08:16] LABS: Alanine Aminotransferase 307 U/L (0-31); Alkaline Phosphatase 200 U/L (39-117); Aspartate Amino Transferase 306 U/L (5-31); Bilirubin Direct 0.6 mg/dL (0.0-0.5); Bilirubin Total 2.1 mg/dL (0.0-1.0); Total Protein 7.5 g/dL (6.5-8.0)
--- NOTE | 2023-04-25 08:24 | PHA.MEDREC ---
Addendum entered by Erika Holcomb [facility] 04/25/23 08:52: reviewed Original Note: Pharmacy Consult ? Medication Reconciliation Pharmacy has completed the medication reconciliation. Spoke to patient to confirm meds.
--- NOTE | 2023-04-25 08:53 | PM.CNGS ---
History of Present Illness Consult details Consult date: 04/25/23 <Chen Topete PA-C - Last Filed: 04/25/23 09:17> Reason for consult: gallstones <THU Lane Last Filed: 04/25/23 09:17> Requesting physician: Paige Lucero <THU Lane Last Filed: 04/25/23 09:17> Narrative: This is a 67-year-old female with significant PMH of HTN, asthma, hyperlipidemia, LBBB, aortic stenosis who presents to the emergency department for evaluation of abdominal pain. Patient states she developed right upper quadrant abdominal pain 2 days ago that radiated to the upper mid back. The pain was exacerbated by eating and was associated with nausea without vomiting for which she took zofran. The pain progressively worsened and due to the persistance and severity she decided to seek care in the ED. Work up in the ED included ABD US which again showed gallstones without signs of acute cholecystitis and a normal CBD. She had elevated LFTs with a bilirubin of 2.9, AST/ALT 227/229, alk phos 188. No leukocytosis. This was similar to her previous episodes last year when she was admitted for gallstones, elevated LFTs with negative MRCP for CBD stone. She has since followed up in the office to discuss cholecystectomy however she was recommended to get cardiac clearance given her significant history. She had a positive nuclear stress test in October and subsequently underwent cardiac catheterization 12/2022 showing LAD and RCA with only minimal luminal irregularities. She never followed back up for cholecystectomy. <Chen Topete PA-C - Last Filed: 04/25/23 09:17> Review of Systems Constitutional: Constitutional: Denies chills and Denies fever(s) <THU Lane Last Filed: 04/25/23 09:17> ENT: Denies dizziness <THU Lane Last Filed: 04/25/23 09:17> Cardiovascular: Cardiovascular: Denies chest pain, Denies palpitations and Reports dyspnea on exertion <THU Lane Last Filed: 04/25/23 09:17> Respiratory: Respiratory: Denies cough and Reports dyspnea on exertion <Chen Topete PA-C - Last Filed: 04/25/23 09:17> Gastrointestinal: Gastrointestinal: Reports as per HPI, Denies constipation, Denies diarrhea and Denies vomiting <Chen Topete PA-C - Last Filed: 04/25/23 09:17> Genitourinary: Genitourinary: Denies hematuria <Chen Topete PA-C - Last Filed: 04/25/23 09:17> Integumentary/Breasts: Skin/Breast: Denies rash and Denies jaundice <Chen Topete PA-C - Last Filed: 04/25/23 09:17> Neurologic: Denies dizziness <Chen Topete PA-C - Last Filed: 04/25/23 09:17> Endocrine: Endocrine: Denies palpitations <Chen Topete PA-C - Last Filed: 04/25/23 09:17> [facility] Past Medical History Medical History: Medical History (Updated 04/25/23 @ 09:12 by Chen Topete PA-C) Abdominal pain Arthritis Asthma B12 deficiency Back pain Biliary colic Breast cancer Chronic pain Common bile duct dilation Constipation Depression Dizziness Dyslipidemia Elevated TSH Foot pain, bilateral Gallstones Hair loss Hair loss History of left bundle branch block (LBBB) History of pernicious anemia History of trigger finger History of vitamin D deficiency HTN (hypertension) Lumbar degenerative disc disease Mild aortic stenosis Mild recurrent major depression Moderate persistent asthma Morbid obesity Morbid obesity Murmur On beta mel at home Right hip pain Sleep apnea Tinnitus <THU Lane Last Filed: 04/25/23 09:17> Family History Family History: Family History Father Prostate cancer Hypertension Mother Skin cancer Dementia Diabetes Daughter Lupus Maternal Grandmother Diabetes Hypertension Maternal Grandfather No problems noted. Paternal Grandmother No problems noted. Paternal Grandfather Cancer Brother Prostate cancer <Chen Topete PA-C - Last Filed: 04/25/23 09:17> Surgical History Surgical History: Surgical History History of cardiac cath History of dilation and curettage History of lymph node dissection of left axilla History of total left knee replacement (TKR) History of total right knee replacement (TKR) Hx of bilateral cataract extraction Hx of colonoscopy Hx of esophagogastroduodenoscopy S/P lumpectomy, left breast <Chen Topete PA-C - Last Filed: 04/25/23 09:17> Social History Social History: Social History Household Members: Spouse and Family Household Members Other:: Graddaughter Housing: House Do you presently have visiting nurse or other home services: Yes Alcohol intake: never Patient Tobacco Use Status: Never used Tobacco e-Cigarette/Vaping Use: Never Used Second Hand Smoke Exposure: No Substance Use Type: Marijuana Advance Directives Date on File: 08/05/22 service: No Current occupational status: disabled Cognitive needs: Yes Hearing needs: No Vision needs: Yes <Chen Topete PA-C - Last Filed: 04/25/23 09:17> Meds Allergies/Adverse reactions: Allergies Allergy/AdvReac Type Severity Reaction Status Date / Time latex [LATEX] Allergy Intermediate RASH Verified 02/20/23 13:15 <THU [address] Last Filed: 04/25/23 09:17> Active Medications: Current Medications Acetaminophen (Acetaminophen 325 Mg Tablet) 650 mg PO Q6H PRN PRN Reason: Pain, Mild (Pain Scale 1-3) Albuterol Sulfate (Albuterol Sulfate 90 Mcg 8 Gm Inhaler) 2 puff INHALE Q4-6H PRN PRN Reason: shortness of breath or wheezing Albuterol Sulfate (Albuterol Sulfate (0.083%) 2.5 Mg/3 Ml Vial.Neb) 2.5 mg INHALE Q6H PRN PRN Reason: bronchospasm Albuterol/Ipratropium (Albuterol/Iprat 2.5/0.5mg 3 Ml Ampul.Neb) 3 ml INHALE Q6H [facility] Cyanocobalamin (Cyanocobalamin (Vitamin B-12) 1,000 Mcg Tablet) 1,000 mcg PO DAILY [facility] Escitalopram Oxalate (Escitalopram Oxalate 10 Mg Tablet) 10 mg PO DAILY [facility] Ferrous Sulfate (Ferrous Sulfate 324 Mg Tablet.Dr) 324 mg PO DAILY [facility] Cefotetan Disodium 2 gm/ (Sodium Chloride) 50 mls @ 100 mls/hr IV PREOP ONE Stop: 04/25/23 08:58 Metoprolol Succinate (Metoprolol Succinate Er 25 Mg Tab.Er.24h) 25 mg PO DAILY SADIA; Protocol Morphine Sulfate (Morphine Sulfate 4 Mg/Ml Cartridge) 4 mg IVPUSH Q4H PRN; Protocol PRN Reason: Pain, Severe (Pain Scale 7-10) Non-Formulary Medication (Fluticasone Propion-Salmeterol [Advair Hfa]) 2 puff INHALE Q12H SADIA Non-Formulary Medication (Oxycodone-Acetaminophen) 1 tab PO Q6H PRN PRN Reason: severe pain Ondansetron HCl (Ondansetron Hcl 4 Mg/2 Ml Vial) 4 mg IVPUSH Q8H PRN PRN Reason: Nausea and Vomiting Pharmacy Consult (Consult Rx Perform Med Rec) 1 each MISCELLANE ONCE PRN PRN Reason: Consult order Sodium Chloride (0.9 % Sodium Chloride Flush 3 Ml Syringe) 3 ml IVFLUSH QSHIFT [facility] Vitamin D (Cholecalciferol (Vitamin D3) 25 Mcg Tablet) 50 mcg PO DAILY [facility] <THU Lane Last Filed: 04/25/23 09:17> Physical Exam Vital Signs: Vital Signs: Last Vital Signs Temp 97.4 F 04/25/23 08:00 Pulse 83 04/25/23 08:00 Resp 16 04/25/23 08:00 BP 129/62 04/25/23 08:00 Pulse Ox 92 04/25/23 08:00 O2 Del Method Room Air 04/25/23 08:00 O2 Flow Rate 2 04/24/23 22:36 BMI result Body Mass Index 42.4 <[address] Last Filed: 04/25/23 09:17> Const: General: comfortable, no acute distress and alert <THU Lane Last Filed: 04/25/23 09:17> Orientation/consciousness: patient oriented x3 <THU Lane Last Filed: 04/25/23 09:17> Resp: Effort & Inspection: normal respiratory effort <Chen GonzalesbodeauMARIANGELDarlin Triana Last Filed: 04/25/23 09:17> Cardio: Rate: regular rate <Chen GonzalesbodeauREBEKAHPalomo Triana Last Filed: 04/25/23 09:17> GI: Inspection: Yes obesity and No scar <Chen GonzalesMARIANGEL billsDarlin Triana Last Filed: 04/25/23 09:17> Palpation (GI): Soft to palpation, Tenderness to palpation present (GI) in the epigastrum and in the RUQ; Diggs's sign negative, no guarding and not rigid <Chen GonzalesMARIANGEL billsDarlin Triana Last Filed: 04/25/23 09:17> Percussion: Yes normal to percussion <Chne GonzalesTHU bills Kong Last Filed: 04/25/23 09:17> Skin: General skin exam: no rashes or lesions noted <Chen GonzalesREBEKAH billsPalomo Triana Last Filed: 04/25/23 09:17> Neuro: General: patient oriented x3 and moves all extremities <Chen GonzalesREBEKAH billsPalomo Triana Last Filed: 04/25/23 09:17> Results Labs Result diagrams: 04/25/23 05:00 04/25/23 05:00 <Chen THU Topete Kong Last Filed: 04/25/23 09:17> Labs: Abnormal lab results 04/24/23 04/24/23 04/25/23 Range/Units 21:45 21:45 05:00 MCV 79.6 L (80.0-98.0) fL MCH 25.7 L 25.4 L (27.0-33.0) pg MPV 9.3 L (9.4-12.3) fL Neut % (Auto) 80.3 H (45-73) % Lymph % (Auto) 10.0 L (20-40) % Lymph # (Auto) 1.0 L (1.2-4.9) X10*3/uL Abs Immat Gran (auto) 0.04 H (0.00-0.03) X10*3/uL Random Glucose 131 H (60-115) mg/dL Total Bilirubin 2.9 H (0.0-1.0) mg/dL Direct Bilirubin (0.0-0.5) mg/dL AST 227 H (5-31) U/L ALT 229 H (0-31) U/L Alkaline Phosphatase 188 H (39-117) U/L 04/25/23 Range/Units 05:00 MCV (80.0-98.0) fL MCH (27.0-33.0) pg MPV (9.4-12.3) fL Neut % (Auto) (45-73) % Lymph % (Auto) (20-40) % Lymph # (Auto) (1.2-4.9) X10*3/uL Abs Immat Gran (auto) (0.00-0.03) X10*3/uL Random Glucose 125 H (60-115) mg/dL Total Bilirubin 2.1 H (0.0-1.0) mg/dL Direct Bilirubin 0.6 H (0.0-0.5) mg/dL AST 306 H (5-31) U/L ALT 307 H (0-31) U/L Alkaline Phosphatase 200 H (39-117) U/L Short CBC 04/24/23 04/25/23 Range/Units 21:45 05:00 WBC 7.5 9.8 (4.8-10.8) X10*3/uL Hgb 13.0 12.6 (12.0-16.0) g/dl Hct 40.2 39.9 (37.0-47.0) % Plt Count 209 190 (160-400) X10*3/uL BMP 04/24/23 04/25/23 21:45 05:00 Sodium 139 138 Potassium 3.6 4.0 Chloride 102 101 Carbon Dioxide 25 25 BUN 13 11 Creatinine 0.79 0.75 Calcium 10.1 9.4 D Liver Function 04/24/23 04/25/23 Range/Units 21:45 05:00 Total Bilirubin 2.9 H 2.1 H (0.0-1.0) mg/dL Direct Bilirubin 0.6 H (0.0-0.5) mg/dL AST 227 H 306 H (5-31) U/L ALT 229 H 307 H (0-31) U/L Alkaline Phosphatase 188 H 200 H (39-117) U/L Albumin 4.1 4.0 (3.5-5.0) g/dL Urine 04/25/23 Range/Units 07:34 Urine Color Dark Yellow Urine Appearance Clear Urine pH 6.0 (5.0-9.0) Ur Specific [place] 1.025 (1.005-1.025) Urine Protein Trace (Neg-Trace) mg/dL Urine Glucose (UA) Negative (Negative) mg/dL All other labs normal. <Chen Topete PA-C - Last Filed: 04/25/23 09:17> Assessment and Plan (1) Elevated LFTs: Status: Acute <Chen Topete PA-C - Last Filed: 04/25/23 09:17> (2) Gallstones: Status: Acute <THU Lane Last Filed: 04/25/23 09:17> 67 year old female with PMH of HTN, asthma, hyperlipidemia, LBBB, aortic stenosis, gallstones who presented to the ED with RUQ abd pain with ABD US showing gallstones and elevated LFTs on lab work. She has history of previous admissions for passed CBD stone. Her bilirubin is beginning to downtrend suggesting another passed CBD stone. Discussed with her proceeding with laparoscopic cholecystectomy possible open with IOC. Risks, benefits, alternatives of laparoscopic possible open cholecystectomy were reviewed with the patient including but not limited to bleeding, infection, numbness, pain, poor healing, injury to the liver, bowel or bile ducts, leak, retained stones and the patient wishes to proceed.? Arrangements will be made for this.?All questions were answered. <Chen Topete PA-C - Last Filed: 04/25/23 09:17> Time Spent With Patient Time: Total time managing care of this patient today ____ minutes. <Chen Topete PA-C - Last Filed: 04/25/23 09:17> Procedures Date of Service Date of Service: 04/25/23 <Chen Topete PA-C - Last Filed: 04/25/23 09:17> 04/25/23 <Sly Bear MD - Last Filed: 04/25/23 09:06>
--- NOTE | 2023-04-25 09:50 | MHC.CM.PN ---
[facility] DELIVERED PT LIVES WITH SPOUSE AND FAMILY. PT USES CANE/WALKER WITH MOBILITY AND USES A C-PAP AT NIGHT FOR SLEEP (UNSURE OF VENDOR) + COVID VAX X3 +HCP ON FILE. [place] [facility] [place], NO SERVICES ANTICIPATED. PT MAY NEED ASSIST WITH [facility] ON DC. CM WILL CONTINUE TO FOLLOW FOR DC NEEDS/PLAN.
--- NOTE | 2023-04-25 11:02 | PM.EVENT ---
Event Note Date of Service: 04/25/23 Event Note: day hospitalist update S c/o RUQ pain no chest pain O VS T 97.4 BP 129/62 P 83 R 16 SaO2 92 on RA Gen: in no acute distress HEENT: sclera anicteric, moist mucus membranes Neck: supple Lungs: clear to auscultation bilaterally Heart: regular rate and rhythm, no murmurs Abd: soft, obese, RUQ tender Ext: no edema Skin: warm/well-perfused Neuro: alert and oriented x3, no focal findings Psych: appropriate affect Labs: Tbili 2.1, Dbili 0.6, AST 306, ALT 307 A/P d#1 67yo F with chronic LBBB, mild , false positive stress test 11/13/22 with cardiac cath 12/19/22 with only minimal luminal irregularites in LAD + RCA, HTN, HLD, mood disorder, asthma prior episode of dilated CBD attributed to passed CBD stone but did not f/u with Gen Surg for lap james presenting with abd pain + elevated Tbili suggestive of passed stone # cholelithiasis/choledocholithiasis - Gen Surg consulted, plan lap v open james + IOC- monitor LFTs # HTN - continue metoprolol succinate # HLD - hold statin pending improvement in LFTs # mood disorder - continue escitalopram # asthma NOT in acute exac - continue ICS-LABA + prn albuterol # VTE ppx: SCDs, add LMWH postop # dispo: eventual home In my clinical judgment, the patient requires continued inpatient hospitalization for the following reasons: operative management of cholelith/choledocholith Time Spent With Patient Time: Total time managing care of this patient today _35___ minutes.
--- NOTE | 2023-04-25 13:24 | HO.ANESPROP2 ---
HPI - Anesthesia Eval Consult details Narrative: for starr MERCADOSH Active Problems Active Problems: All Active Problems (Updated 04/25/23 @ 09:12 by Chen Topete PA-C) Elevated LFTs (Acute) Biliary colic (Acute) Biliary colic (Acute) Abnormal nuclear stress test (Acute) History of cardiac cath (Acute) Mild major depression (Acute) Dyspnea (Acute) Nonrheumatic aortic (valve) stenosis (Acute) LBBB (left bundle branch block) (Acute) Preoperative cardiovascular examination (Acute) Asthma (Acute) Anemia (Chronic) Pneumonia (Acute) Morbid obesity (Acute) Gallstones (Acute) Hospital discharge follow-up (Acute) Dyspnea (Acute) Iron deficiency anemia (Acute) DORA (obstructive sleep apnea) (Acute) Adult general medical exam (Acute) Post-menopausal (Acute) Low left ventricular ejection fraction (Acute) Aortic stenosis (Acute) Elevated TSH (Acute) Hair loss (Acute) Murmur (Acute) Moderate persistent asthma (Acute) Morbid obesity (Acute) Aphthous stomatitis (Acute) Mild recurrent major depression (Acute) B12 deficiency (Acute) Hair loss (Acute) Bronchitis (Acute) Right hip pain (Acute) Somatic dysfunction of right sacroiliac joint (Acute) Colon cancer screening (Acute) Foot pain, bilateral (Acute) Dizziness (Acute) History of vitamin D deficiency (Acute) Chronic pain (Acute) Constipation (Acute) Back pain (Acute) Lumbar degenerative disc disease (Acute) Past Medical History Medical History Abdominal pain Arthritis Asthma B12 deficiency Back pain Biliary colic Breast cancer Chronic pain Common bile duct dilation Constipation Depression Dizziness Dyslipidemia Elevated TSH Foot pain, bilateral Gallstones Hair loss Hair loss History of left bundle branch block (LBBB) History of pernicious anemia History of trigger finger History of vitamin D deficiency HTN (hypertension) Lumbar degenerative disc disease Mild aortic stenosis Mild recurrent major depression Moderate persistent asthma Morbid obesity Morbid obesity Murmur On beta mel at home Right hip pain Sleep apnea Tinnitus Family History Family History Father Prostate cancer Hypertension Mother Skin cancer Dementia Diabetes Daughter Lupus Maternal Grandmother Diabetes Hypertension Maternal Grandfather No problems noted. Paternal Grandmother No problems noted. Paternal Grandfather Cancer Brother Prostate cancer Family history of problems with anesthesia: No Surgical History Surgical History History of cardiac cath History of dilation and curettage History of lymph node dissection of left axilla History of total left knee replacement (TKR) History of total right knee replacement (TKR) Hx of bilateral cataract extraction Hx of colonoscopy Hx of esophagogastroduodenoscopy S/P lumpectomy, left breast History of Problems with Anesthesia: No Social History Social History Household Members: Spouse and Family Household Members Other:: Graddaughter Housing: House Do you presently have visiting nurse or other home services: Yes Alcohol intake: never Patient Tobacco Use Status: Never used Tobacco e-Cigarette/Vaping Use: Never Used Second Hand Smoke Exposure: No Substance Use Type: Marijuana Advance Directives Date on File: 08/05/22 service: No Current occupational status: disabled Cognitive needs: Yes Hearing needs: No Vision needs: Yes Meds Allergies Allergy/AdvReac Type Severity Reaction Status Date / Time latex [LATEX] Allergy Intermediate RASH Verified 02/20/23 13:15 Active Medications: Current Medications Acetaminophen (Acetaminophen 325 Mg Tablet) 650 mg PO Q6H PRN PRN Reason: Pain, Mild (Pain Scale 1-3) Albuterol Sulfate (Albuterol Sulfate 90 Mcg 8 Gm Inhaler) 2 puff INHALE Q4H PRN PRN Reason: shortness of breath or wheezin Albuterol Sulfate (Albuterol Sulfate (0.083%) 2.5 Mg/3 Ml Vial.Neb) 2.5 mg INHALE Q6H PRN PRN Reason: bronchospasm Albuterol/Ipratropium (Albuterol/Iprat 2.5/0.5mg 3 Ml Ampul.Neb) 3 ml INHALE RQ6H [facility] Last Admin: 04/25/23 12:33 Dose: Not Given Cyanocobalamin (Cyanocobalamin (Vitamin B-12) 1,000 Mcg Tablet) 1,000 mcg PO DAILY [facility] Last Admin: 04/25/23 09:12 Dose: Not Given Escitalopram Oxalate (Escitalopram Oxalate 10 Mg Tablet) 10 mg PO DAILY [facility] Last Admin: 04/25/23 09:12 Dose: Not Given Ferrous Sulfate (Ferrous Sulfate 324 Mg Tablet.Dr) 324 mg PO DAILY [facility] Last Admin: 04/25/23 09:12 Dose: Not Given Fluticasone/Vilanterol (Fluticasone/Vilanterol 200/25 Blst.W.Dev) 2 puff INHALE RDAILY [facility] Acetaminophen (Ofirmev) 1,000 mg in 100 mls @ 400 mls/hr IV PREOP ONE Stop: 04/25/23 13:35 Metoprolol Succinate (Metoprolol Succinate Er 25 Mg Tab.Er.24h) 25 mg PO DAILY [facility]; Protocol Last Admin: 04/25/23 09:12 Dose: Not Given Morphine Sulfate (Morphine Sulfate 4 Mg/Ml Cartridge) 4 mg IVPUSH Q4H PRN; Protocol PRN Reason: Pain, Severe (Pain Scale 7-10) Ondansetron HCl (Ondansetron Hcl 4 Mg/2 Ml Vial) 4 mg IVPUSH Q8H PRN PRN Reason: Nausea and Vomiting Oxycodone HCl (Oxycodone Hcl Immed Release 5 Mg Tablet) 10 mg PO Q6H PRN PRN Reason: severe pain Pharmacy Consult (Consult Rx Perform Med Rec) 1 each MISCELLANE ONCE PRN PRN Reason: Consult order Sodium Chloride (0.9 % Sodium Chloride Flush 3 Ml Syringe) 3 ml IVFLUSH QSHIFT [facility] Last Admin: 04/25/23 09:12 Dose: Not Given Vitamin D (Cholecalciferol (Vitamin D3) 25 Mcg Tablet) 50 mcg PO DAILY [facility] Last Admin: 04/25/23 09:12 Dose: Not Given Exam Exam Date and Time: April 25, 2023 1324 Height,Weight and Vital Signs: Height 4 ft 11 in Weight 95.254 kg Last Vital Signs Temp 98.0 F 04/25/23 12:19 Pulse 79 04/25/23 12:19 Resp 16 04/25/23 12:19 BP 128/72 04/25/23 12:19 Pulse Ox 94 04/25/23 12:19 O2 Del Method Nasal Cannula 04/25/23 12:19 O2 Flow Rate 2 04/25/23 12:19 Pertinent Lab Results Pertinent Lab Results: Laboratory Tests 04/24/23 04/24/23 04/25/23 21:45 21:45 05:00 WBC 7.5 9.8 RBC 5.05 4.96 Hgb 13.0 12.6 Hct 40.2 39.9 MCV 79.6 L 80.4 MCH 25.7 L 25.4 L MCHC 32.3 31.6 RDW 15.6 15.5 Plt Count 209 190 MPV 9.3 L 9.9 Immature Gran % (Auto) 0.4 Neut % (Auto) 80.3 H Lymph % (Auto) 10.0 L [place] % (Auto) 8.8 Eos % (Auto) 0.1 Baso % (Auto) 0.4 Lymph # (Auto) 1.0 L [place] # (Auto) 0.9 Eos # (Auto) 0.0 Baso # (Auto) 0.0 Abs Immat Gran (auto) 0.04 H Absolute Neuts (auto) 7.9 Absolute Nucleated RBC 0.000 0.000 Nucleated RBC % (auto) 0.0 0.0 Sodium 139 Potassium 3.6 Chloride 102 Carbon Dioxide 25 Anion Gap 16 BUN 13 Creatinine 0.79 Estim Creat Clear Calc 67.9 Estimated GFR > 60 Random Glucose 131 H Calcium 10.1 Total Bilirubin 2.9 H Direct Bilirubin AST 227 H ALT 229 H Alkaline Phosphatase 188 H Total Protein 7.5 Albumin 4.1 Lipase 28 Urine Color Urine Appearance Urine pH Ur Specific [place] Urine Protein Urine Glucose (UA) Urine Ketones Urine Blood Urine Nitrite Ur Leukocyte Esterase 04/25/23 04/25/23 05:00 07:34 WBC RBC Hgb Hct MCV MCH MCHC RDW Plt Count MPV Immature Gran % (Auto) Neut % (Auto) Lymph % (Auto) [place] % (Auto) Eos % (Auto) Baso % (Auto) Lymph # (Auto) [place] # (Auto) Eos # (Auto) Baso # (Auto) Abs Immat Gran (auto) Absolute Neuts (auto) Absolute Nucleated RBC Nucleated RBC % (auto) Sodium 138 Potassium 4.0 Chloride 101 Carbon Dioxide 25 Anion Gap 16 BUN 11 Creatinine 0.75 Estim Creat Clear Calc 71.5 Estimated GFR > 60 Random Glucose 125 H Calcium 9.4 D Total Bilirubin 2.1 H Direct Bilirubin 0.6 H AST 306 H ALT 307 H Alkaline Phosphatase 200 H Total Protein 7.5 Albumin 4.0 Lipase Urine Color Dark Yellow Urine Appearance Clear Urine pH 6.0 Ur Specific [place] 1.025 Urine Protein Trace Urine Glucose (UA) Negative Urine Ketones 15 Urine Blood Negative Urine Nitrite Negative Ur Leukocyte Esterase Negative Airway Mallampati Class: III TM Dist: <=3cm Neck ROM: Limited Heart: rrr Lungs: cta Assessment and Plan Assessment Anesthesia Assessment: Anesthesia Plan Discussed, Smoking Cess. Discussed and Chart Reviewed Final Anesthetic Review Family History of Problems with Anesthesia: No History of Problems with Anesthesia: No NPO: Yes ASA Class: III Final Preanesthetic Review: No Changes in Pt Med Stat, Meds/Allgs Chart Reviewed, Consent Obtained/Reviewed and Anes Risks/Benef Reviewed Patient Risk: Intermediate Procedure Risk: Intermediate Anesthetic Plan Anesthetic Plan: GA Disposition: Standard PACU
[2023-04-25] MEDS: Albuterol/Iprat 2.5/0.5MG 3 ML AMPUL.NEB INHALE (13:43)
--- NOTE | 2023-04-25 14:52 | PM.EVENT ---
Event Note Date of Service: 04/25/23 Event Note: Pt could not be seen today as already down to OR. MRI/MRCP reviewed personally - possibly has filling defect just above ampulla. However no CBD dil and bili trending down. Discussed with Dr Bera - plan to proceed with CCY with IOC. If IOC confirms CBD stone, pt will need an ERCP (unless bile duct explored intraop). Otherwise, remaining plan as per surg team. Reviewed with hosp team. Time Spent With Patient Time: Total time managing care of this patient today ____ minutes.
--- NOTE | 2023-04-25 14:57 | HO.ANESPROP2 ---
HPI - Anesthesia Eval Consult details Narrative: emergency gb PMFSH Active Problems Active Problems: All Active Problems (Updated 04/25/23 @ 09:12 by Chen Topete PA-C) Elevated LFTs (Acute) Biliary colic (Acute) Biliary colic (Acute) Abnormal nuclear stress test (Acute) History of cardiac cath (Acute) Mild major depression (Acute) Dyspnea (Acute) Nonrheumatic aortic (valve) stenosis (Acute) LBBB (left bundle branch block) (Acute) Preoperative cardiovascular examination (Acute) Asthma (Acute) Anemia (Chronic) Pneumonia (Acute) Morbid obesity (Acute) Gallstones (Acute) Hospital discharge follow-up (Acute) Dyspnea (Acute) Iron deficiency anemia (Acute) DORA (obstructive sleep apnea) (Acute) Adult general medical exam (Acute) Post-menopausal (Acute) Low left ventricular ejection fraction (Acute) Aortic stenosis (Acute) Elevated TSH (Acute) Hair loss (Acute) Murmur (Acute) Moderate persistent asthma (Acute) Morbid obesity (Acute) Aphthous stomatitis (Acute) Mild recurrent major depression (Acute) B12 deficiency (Acute) Hair loss (Acute) Bronchitis (Acute) Right hip pain (Acute) Somatic dysfunction of right sacroiliac joint (Acute) Colon cancer screening (Acute) Foot pain, bilateral (Acute) Dizziness (Acute) History of vitamin D deficiency (Acute) Chronic pain (Acute) Constipation (Acute) Back pain (Acute) Lumbar degenerative disc disease (Acute) Past Medical History Medical History Abdominal pain Arthritis Asthma B12 deficiency Back pain Biliary colic Breast cancer Chronic pain Common bile duct dilation Constipation Depression Dizziness Dyslipidemia Elevated TSH Foot pain, bilateral Gallstones Hair loss Hair loss History of left bundle branch block (LBBB) History of pernicious anemia History of trigger finger History of vitamin D deficiency HTN (hypertension) Lumbar degenerative disc disease Mild aortic stenosis Mild recurrent major depression Moderate persistent asthma Morbid obesity Morbid obesity Murmur On beta mel at home Right hip pain Sleep apnea Tinnitus Family History Family History Father Prostate cancer Hypertension Mother Skin cancer Dementia Diabetes Daughter Lupus Maternal Grandmother Diabetes Hypertension Maternal Grandfather No problems noted. Paternal Grandmother No problems noted. Paternal Grandfather Cancer Brother Prostate cancer Family history of problems with anesthesia: No Surgical History Surgical History History of cardiac cath History of dilation and curettage History of lymph node dissection of left axilla History of total left knee replacement (TKR) History of total right knee replacement (TKR) Hx of bilateral cataract extraction Hx of colonoscopy Hx of esophagogastroduodenoscopy S/P lumpectomy, left breast History of Problems with Anesthesia: No Social History Social History Household Members: Spouse and Family Household Members Other:: Graddaughter Housing: House Do you presently have visiting nurse or other home services: Yes Alcohol intake: never Patient Tobacco Use Status: Never used Tobacco e-Cigarette/Vaping Use: Never Used Second Hand Smoke Exposure: No Substance Use Type: Marijuana Advance Directives Date on File: 08/05/22 service: No Current occupational status: disabled Cognitive needs: Yes Hearing needs: No Vision needs: Yes Meds Allergies Allergy/AdvReac Type Severity Reaction Status Date / Time latex [LATEX] Allergy Intermediate RASH Verified 02/20/23 13:15 Active Medications: Current Medications Acetaminophen (Acetaminophen 325 Mg Tablet) 650 mg PO Q6H PRN PRN Reason: Pain, Mild (Pain Scale 1-3) Albuterol Sulfate (Albuterol Sulfate 90 Mcg 8 Gm Inhaler) 2 puff INHALE Q4H PRN PRN Reason: shortness of breath or wheezin Albuterol Sulfate (Albuterol Sulfate (0.083%) 2.5 Mg/3 Ml Vial.Neb) 2.5 mg INHALE Q6H PRN PRN Reason: bronchospasm Albuterol/Ipratropium (Albuterol/Iprat 2.5/0.5mg 3 Ml Ampul.Neb) 3 ml INHALE RQ6H [facility] Last Admin: 04/25/23 13:43 Dose: 3 ml Cyanocobalamin (Cyanocobalamin (Vitamin B-12) 1,000 Mcg Tablet) 1,000 mcg PO DAILY [facility] Last Admin: 04/25/23 09:12 Dose: Not Given Escitalopram Oxalate (Escitalopram Oxalate 10 Mg Tablet) 10 mg PO DAILY [facility] Last Admin: 04/25/23 09:12 Dose: Not Given Fentanyl (Fentanyl Citrate/Pf 100 Mcg/2 Ml Vial) 25 mcg IVPUSH Q5M PRN; Protocol PRN Reason: Pain, Moderate(Pain Scale 4-6) Ferrous Sulfate (Ferrous Sulfate 324 Mg Tablet.Dr) 324 mg PO DAILY [facility] Last Admin: 04/25/23 09:12 Dose: Not Given Fluticasone/Vilanterol (Fluticasone/Vilanterol 200/25 Blst.W.Dev) 2 puff INHALE RDAILY [facility] Metoprolol Succinate (Metoprolol Succinate Er 25 Mg Tab.Er.24h) 25 mg PO DAILY [facility]; Protocol Last Admin: 04/25/23 09:12 Dose: Not Given Morphine Sulfate (Morphine Sulfate 4 Mg/Ml Cartridge) 4 mg IVPUSH Q4H PRN; Protocol PRN Reason: Pain, Severe (Pain Scale 7-10) Ondansetron HCl (Ondansetron Hcl 4 Mg/2 Ml Vial) 4 mg IVPUSH Q8H PRN PRN Reason: Nausea and Vomiting Ondansetron HCl (Ondansetron Hcl 4 Mg/2 Ml Vial) 4 mg IVPUSH ONCE PRN PRN Reason: Nausea and Vomiting Oxycodone HCl (Oxycodone Hcl Immed Release 5 Mg Tablet) 10 mg PO Q6H PRN PRN Reason: severe pain Oxycodone HCl (Oxycodone Hcl Immed Release 5 Mg Tablet) 5 mg PO ONCE PRN PRN Reason: Pain, Severe (Pain Scale 7-10) Pharmacy Consult (Consult Rx Perform Med Rec) 1 each MISCELLANE ONCE PRN PRN Reason: Consult order Sodium Chloride (0.9 % Sodium Chloride Flush 3 Ml Syringe) 3 ml IVFLUSH QSHIFT [facility] Last Admin: 04/25/23 09:12 Dose: Not Given Vitamin D (Cholecalciferol (Vitamin D3) 25 Mcg Tablet) 50 mcg PO DAILY [facility] Last Admin: 04/25/23 09:12 Dose: Not Given Exam Exam Date and Time: April 25, 2023 116 Height,Weight and Vital Signs: Height 4 ft 11 in Weight 95.254 kg Last Vital Signs Temp 98.0 F 04/25/23 12:19 Pulse 79 04/25/23 13:49 Resp 18 04/25/23 13:49 BP 128/72 04/25/23 12:19 Pulse Ox 94 04/25/23 12:19 O2 Del Method Nasal Cannula 04/25/23 12:19 O2 Flow Rate 2 04/25/23 12:19 Pertinent Lab Results Pertinent Lab Results: Laboratory Tests 04/24/23 04/24/23 04/25/23 21:45 21:45 05:00 WBC 7.5 9.8 RBC 5.05 4.96 Hgb 13.0 12.6 Hct 40.2 39.9 MCV 79.6 L 80.4 MCH 25.7 L 25.4 L MCHC 32.3 31.6 RDW 15.6 15.5 Plt Count 209 190 MPV 9.3 L 9.9 Immature Gran % (Auto) 0.4 Neut % (Auto) 80.3 H Lymph % (Auto) 10.0 L [place] % (Auto) 8.8 Eos % (Auto) 0.1 Baso % (Auto) 0.4 Lymph # (Auto) 1.0 L [place] # (Auto) 0.9 Eos # (Auto) 0.0 Baso # (Auto) 0.0 Abs Immat Gran (auto) 0.04 H Absolute Neuts (auto) 7.9 Absolute Nucleated RBC 0.000 0.000 Nucleated RBC % (auto) 0.0 0.0 Sodium 139 Potassium 3.6 Chloride 102 Carbon Dioxide 25 Anion Gap 16 BUN 13 Creatinine 0.79 Estim Creat Clear Calc 67.9 Estimated GFR > 60 Random Glucose 131 H Calcium 10.1 Total Bilirubin 2.9 H Direct Bilirubin AST 227 H ALT 229 H Alkaline Phosphatase 188 H Total Protein 7.5 Albumin 4.1 Lipase 28 Urine Color Urine Appearance Urine pH Ur Specific [place] Urine Protein Urine Glucose (UA) Urine Ketones Urine Blood Urine Nitrite Ur Leukocyte Esterase 04/25/23 04/25/23 05:00 07:34 WBC RBC Hgb Hct MCV MCH MCHC RDW Plt Count MPV Immature Gran % (Auto) Neut % (Auto) Lymph % (Auto) [place] % (Auto) Eos % (Auto) Baso % (Auto) Lymph # (Auto) [place] # (Auto) Eos # (Auto) Baso # (Auto) Abs Immat Gran (auto) Absolute Neuts (auto) Absolute Nucleated RBC Nucleated RBC % (auto) Sodium 138 Potassium 4.0 Chloride 101 Carbon Dioxide 25 Anion Gap 16 BUN 11 Creatinine 0.75 Estim Creat Clear Calc 71.5 Estimated GFR > 60 Random Glucose 125 H Calcium 9.4 D Total Bilirubin 2.1 H Direct Bilirubin 0.6 H AST 306 H ALT 307 H Alkaline Phosphatase 200 H Total Protein 7.5 Albumin 4.0 Lipase Urine Color Dark Yellow Urine Appearance Clear Urine pH 6.0 Ur Specific [place] 1.025 Urine Protein Trace Urine Glucose (UA) Negative Urine Ketones 15 Urine Blood Negative Urine Nitrite Negative Ur Leukocyte Esterase Negative Airway Mallampati Class: III TM Dist: <=3cm Neck ROM: Full Loose/Missing/Broken Teeth: No Heart: rr Lungs: cta Assessment and Plan Assessment Anesthesia Assessment: Anesthesia Plan Discussed and Chart Reviewed Final Anesthetic Review Family History of Problems with Anesthesia: No History of Problems with Anesthesia: No NPO: Yes ASA Class: III and Emergency Final Preanesthetic Review: No Changes in Pt Med Stat, Meds/Allgs Chart Reviewed, Consent Obtained/Reviewed and Anes Risks/Benef Reviewed Patient Risk: Intermediate Procedure Risk: Low Anesthetic Plan Anesthetic Plan: GA Disposition: Standard PACU
--- NOTE | 2023-04-25 15:08 | W.PM.OPN ---
Operative Note Operative Note Date of Service: 04/25/23 Narrative: Preoperative diagnosis: [] Acute cholecystitis, rule out distal common bile duct stone Postop diagnosis: [] Acute cholecystitis, impacted distal common bile duct stone, incarcerated umbilical hernia, very corpulent abdomen Procedure [] laparoscopic cholecystectomy with cholangiogram, primary repair of incarcerated umbilical hernia, Surgeon: [] [employer] Investigator: [] REBEKAH Topete Type of Anesthesia: [] General Indication for surgery: [] intraoperative findings demonstrated edematous inflamed gallbladder with omental adhesions to the gallbladder. Intraoperative cholangiogram demonstrated a markedly dilated extrahepatic biliary system with a filling defect consistent with a stone impacted in the distal common bile duct. Patient had incidental finding of an incarcerated umbilical hernia with omental contents, measuring approximately 2 cm which was used as the umbilical port site and closed primarily at completion of the procedure.. Findings: [] Patient brought to the operating room, placed on operative table supine position, after adequate level of general anesthesia was induced, the patient's abdomen was prepped and draped in usual sterile fashion. Using a supraumbilical curvilinear incision, this carried down through skin, subcutaneous tissue, where in a incarcerated umbilical hernia with omental contents was encountered. Sac was opened and omental contents amputated. Friedman technique was then used to insufflate the abdominal cavity to 15 mm of CO2. Upper midline and right subcostal ports were placed under direct laparoscopic view, and the patient placed in reverse Trendelenburg position, and tilted to the left. Gallbladder was grasped using laparoscopic graspers, retracted superiorly and laterally. Soft omental adhesions swept off the gallbladder. Findings were as noted above. Gallbladder hilum was approached with the cystic artery and cystic duct were identified. Cystic duct was skeletonized, and a clip placed on the gallbladder side and a choley- cystodochotomy performed with Metzenbaum scissors and a cholangiocatheter advanced into the cystic duct. Cholangiogram was performed with findings as noted above. Patient had very dilated extrahepatic biliary system with free flow proximally into the right and left, hepatic ducts but free flow to duodenum was hindered secondary to impacted distal common bile duct stone. Cystic duct was then clipped proximally x3 and transected. Similarly cystic artery was skeletonized, traced directly into the gallbladder, and clipped proximally x2, distally x1, and transected. Gallbladder which was moderately intrahepatic was then cauterized the gallbladder fossa using Bovie. In the gallbladder fossa, a small posterior ascending artery was encountered and also clipped. Specimen was placed in an Endo-Catch bag, a retrieved through the umbilical port. Abdominal cavity was very copiously irrigated and secured hemostasis. All ports were removed under direct laparoscopic view. Wounds were closed in the following manner; umbilical wound which was the site of the umbilical hernia was closed primarily using interrupted 0 Vicryl sutures. All skin wounds were closed using subcuticular 4-0 Vicryl sutures followed by Steri-Strips and sterile dressings. Wounds were infiltrated 0.5% Marcaine at completion of the procedure. Sponge, needle, instrument counts reported correct. Patient tolerated the procedure well and emerged anesthesia stable condition. EBL minimal
[2023-04-26] VITALS (9 sets, daily range): BP systolic 116–130; BP diastolic 56–68; PULSE 77–97; RESP 15–21; TEMP 36.2–36.9; O2SAT 78–96
[2023-04-26] MEDS: Albuterol/Iprat 2.5/0.5MG 3 ML AMPUL.NEB INHALE ×4 (05:44→23:33)
[2023-04-26] MEDS: Ferrous Sulfate 324 MG TABLET.DR PO (07:23)
[2023-04-26] MEDS: Metoprolol Succinate ER 25 MG TAB.ER.24H PO (07:23)
[2023-04-26] MEDS: Cyanocobalamin (Vitamin B-12) 1,000 MCG TABLET 1000 MCG PO (07:23)
[2023-04-26] MEDS: Escitalopram Oxalate 10 MG TABLET PO (07:23)
[2023-04-26] MEDS: Cholecalciferol (Vitamin D3) 25 MCG TABLET 50 MCG PO (07:24)
--- NOTE | 2023-04-26 08:54 | PM.GICN ---
History of Present Illness Data of Consult Service Date: 04/26/23 Requesting physician: Vignesh Harmon Primary Care Provider: Adrianna Richter MD HPI Reason for consult: CBD stone This is a 67-year-old female with past medical history of hypertension, anxiety, asthma, history of breast cancer, obesity, who presented to the hospital yesterday morning for abdominal pain and was found to have elevated LFTs. Gastroenterology was consulted for choledocholithiasis. Patient has had a similar admission in the past in July 2022, at that time she passed a CBD stone spontaneously. Interval cholecystectomy was recommended after cardiac evaluation. However, patient then lost to follow-up. Patient is now status post laparoscopic cholecystectomy as well as repair of incarcerated umbilical hernia 04/25/23 (Dr Bear). Intraoperative cholangiogram shows a 7 mm CBD stone with mild CBD dilation. Currently the time of bedside evaluation, patient reports considerable pain in the abdomen still with nausea. Was started on regular diet but has only be able to tolerate liquids. No fevers or chills. Passing flatulence. Labs are significant for mild leukocytosis of 11.7. LFTs are unchanged from yesterday. Review of Systems Review of Systems: Yes all other systems are reviewed and are negative PMFSH Past Medical History Medical History Abdominal pain Arthritis Asthma B12 deficiency Back pain Biliary colic Breast cancer Chronic pain Common bile duct dilation Constipation Depression Dizziness Dyslipidemia Elevated TSH Foot pain, bilateral Gallstones Hair loss Hair loss History of left bundle branch block (LBBB) History of pernicious anemia History of trigger finger History of vitamin D deficiency HTN (hypertension) Lumbar degenerative disc disease Mild aortic stenosis Mild recurrent major depression Moderate persistent asthma Morbid obesity Morbid obesity Murmur On beta mel at home Right hip pain Sleep apnea Tinnitus Family History Family History Father Prostate cancer Hypertension Mother Skin cancer Dementia Diabetes Daughter Lupus Maternal Grandmother Diabetes Hypertension Maternal Grandfather No problems noted. Paternal Grandmother No problems noted. Paternal Grandfather Cancer Brother Prostate cancer Surgical History Surgical History History of cardiac cath History of dilation and curettage History of lymph node dissection of left axilla History of total left knee replacement (TKR) History of total right knee replacement (TKR) Hx of bilateral cataract extraction Hx of colonoscopy Hx of esophagogastroduodenoscopy S/P lumpectomy, left breast Social History Social History Household Members: Spouse and Family Household Members Other:: Graddaughter Housing: House Do you presently have visiting nurse or other home services: Yes Alcohol intake: never Patient Tobacco Use Status: Never used Tobacco e-Cigarette/Vaping Use: Never Used Second Hand Smoke Exposure: No Substance Use Type: Marijuana Advance Directives Date on File: 08/05/22 service: No Current occupational status: disabled Cognitive needs: Yes Hearing needs: No Vision needs: Yes Meds Allergies Allergy/AdvReac Type Severity Reaction Status Date / Time latex [LATEX] Allergy Intermediate RASH Verified 02/20/23 13:15 Active Medications: Current Medications Acetaminophen (Acetaminophen 325 Mg Tablet) 650 mg PO Q6H PRN PRN Reason: Pain, Mild (Pain Scale 1-3) Albuterol Sulfate (Albuterol Sulfate 90 Mcg 8 Gm Inhaler) 2 puff INHALE Q4H PRN PRN Reason: shortness of breath or wheezin Albuterol Sulfate (Albuterol Sulfate (0.083%) 2.5 Mg/3 Ml Vial.Neb) 2.5 mg INHALE Q6H PRN PRN Reason: bronchospasm Albuterol/Ipratropium (Albuterol/Iprat 2.5/0.5mg 3 Ml Ampul.Neb) 3 ml INHALE RQ6H [facility] Last Admin: 04/26/23 05:44 Dose: 3 ml Cyanocobalamin (Cyanocobalamin (Vitamin B-12) 1,000 Mcg Tablet) 1,000 mcg PO DAILY [facility] Last Admin: 04/26/23 07:23 Dose: 1,000 mcg Escitalopram Oxalate (Escitalopram Oxalate 10 Mg Tablet) 10 mg PO DAILY [facility] Last Admin: 04/26/23 07:23 Dose: 10 mg Fentanyl (Fentanyl Citrate/Pf 100 Mcg/2 Ml Vial) 25 mcg IVPUSH Q5M PRN; Protocol PRN Reason: Pain, Moderate(Pain Scale 4-6) Ferrous Sulfate (Ferrous Sulfate 324 Mg Tablet.) 324 mg PO DAILY [facility] Last Admin: 04/26/23 07:23 Dose: 324 mg Fluticasone/Vilanterol (Fluticasone/Vilanterol 200/25 Blst.W.Dev) 2 puff INHALE RDAILY [facility] Last Admin: 04/26/23 07:45 Dose: Not Given Metoprolol Succinate (Metoprolol Succinate Er 25 Mg Tab.Er.24h) 25 mg PO DAILY [facility]; Protocol Last Admin: 04/26/23 07:23 Dose: 25 mg Morphine Sulfate (Morphine Sulfate 4 Mg/Ml Cartridge) 4 mg IVPUSH Q4H PRN; Protocol PRN Reason: Pain, Severe (Pain Scale 7-10) Last Admin: 04/26/23 07:21 Dose: 4 mg Ondansetron HCl (Ondansetron Hcl 4 Mg/2 Ml Vial) 4 mg IVPUSH Q8H PRN PRN Reason: Nausea and Vomiting Oxycodone HCl (Oxycodone Hcl Immed Release 5 Mg Tablet) 10 mg PO Q6H PRN PRN Reason: severe pain Pharmacy Consult (Consult Rx Perform Med Rec) 1 each MISCELLANE ONCE PRN PRN Reason: Consult order Sodium Chloride (0.9 % Sodium Chloride Flush 3 Ml Syringe) 3 ml IVFLUSH QSHIFT [facility] Last Admin: 04/26/23 07:20 Dose: 3 ml Vitamin D (Cholecalciferol (Vitamin D3) 25 Mcg Tablet) 50 mcg PO DAILY [facility] Last Admin: 04/26/23 07:24 Dose: 50 mcg Physical Exam Vital Signs: Vital Signs: Last Vital Signs Temp 97.1 F 04/26/23 07:18 Pulse 97 04/26/23 07:18 Resp 18 04/26/23 07:18 BP 128/68 04/26/23 07:18 Pulse Ox 93 04/26/23 07:18 O2 Del Method Nasal Cannula 04/26/23 07:18 O2 Flow Rate 2.0 04/26/23 07:18 FiO2 24 04/25/23 15:55 BMI result Body Mass Index 42.4 Gen appear: NAD HEENT: nonicteric, no cervical lymphadenopathy Chest: CTA CVS: Regular S1/S2 Abd: soft, tender, mildly distended Ext: no peripheral edema Neuro: A/Ox3, noted to move all extremities spontaneously Psych: interacting appropriately Results Labs 04/26/23 05:40 04/26/23 05:40 Labs: Short CBC 04/26/23 Range/Units 05:40 WBC 11.7 H (4.8-10.8) X10*3/uL Hgb 12.9 (12.0-16.0) g/dl Hct 40.8 (37.0-47.0) % Plt Count 192 (160-400) X10*3/uL BMP 04/26/23 05:40 Sodium 140 Potassium 3.4 Chloride 102 Carbon Dioxide 27 BUN 10 Creatinine 0.83 Calcium 9.5 Liver Function 04/26/23 Range/Units 05:40 Total Bilirubin 1.7 H (0.0-1.0) mg/dL AST 226 H (5-31) U/L ALT 290 H (0-31) U/L Alkaline Phosphatase 167 H (39-117) U/L Albumin 3.7 (3.5-5.0) g/dL Assessment and Plan (1) Elevated LFTs: Status: Acute (2) Gallstones: Status: Acute (3) Cholecystitis with cholelithiasis: Status: Acute (4) Choledocholithiasis: Status: Acute Plan Presented with acute cholecystitis and choledocholithiasis now s/p lap james 04/25. IOC confirms the distal CBD stone that was also seen on MRCP pre-op. Pt will need an ERCP this admission, can likely schedule this Friday/Friday depending on OR availability. Recommendations: - Clears as long as okayed by surgery team. - NPO after MN for procedure on 04/28 - Monitor vitals and call GI amie for any s/sx concerning for cholangitis such as fever, rising bili, worsening abd pain Thank you for the consultation. Please do not hesitate to reach out for any questions or concerns. Time Spent With Patient Time: Total time managing care of this patient today ____ minutes. Procedures Date of Service Date of Service: 04/26/23
--- NOTE | 2023-04-26 09:16 | PM.PNGS ---
Subjective Subjective Date of Service: 04/26/23 Patient reports: still having pain and tolerating liquids well Interval history: Patient is seen in coverage Patient reports continued pain but notes she is tolerating liquids. Case was discussed with Dr. Spears and ERCP is pending for Friday or Friday. Patient otherwise denies chest pain, difficulty breathing or shortness of breath. Physical Exam Vital Signs: Vital Signs: Last Vital Signs Temp 97.1 F 04/26/23 07:18 Pulse 97 04/26/23 07:18 Resp 18 04/26/23 07:18 BP 128/68 04/26/23 07:18 Pulse Ox 93 04/26/23 07:18 O2 Del Method Nasal Cannula 04/26/23 07:18 O2 Flow Rate 2.0 04/26/23 07:18 FiO2 24 04/25/23 15:55 BMI result Body Mass Index 42.4 On exam, the patient is nontoxic She is in no acute respiratory distress Her abdomen is obese, soft with epigastric and right upper quadrant pain expected postop. Dressings are clean, dry and intact Objective Data Active Medications Acetaminophen (Acetaminophen 325 Mg Tablet) 650 mg PO Q6H PRN PRN Reason: Pain, Mild (Pain Scale 1-3) Albuterol Sulfate (Albuterol Sulfate 90 Mcg 8 Gm Inhaler) 2 puff INHALE Q4H PRN PRN Reason: shortness of breath or wheezin Albuterol Sulfate (Albuterol Sulfate (0.083%) 2.5 Mg/3 Ml Vial.Neb) 2.5 mg INHALE Q6H PRN PRN Reason: bronchospasm Albuterol/Ipratropium (Albuterol/Iprat 2.5/0.5mg 3 Ml Ampul.Neb) 3 ml INHALE RQ6H [facility] Last Admin: 04/26/23 05:44 Dose: 3 ml Documented By: IGNACIA Cyanocobalamin (Cyanocobalamin (Vitamin B-12) 1,000 Mcg Tablet) 1,000 mcg PO DAILY [facility] Last Admin: 04/26/23 07:23 Dose: 1,000 mcg Documented By: ODETTE Escitalopram Oxalate (Escitalopram Oxalate 10 Mg Tablet) 10 mg PO DAILY [facility] Last Admin: 04/26/23 07:23 Dose: 10 mg Documented By: ODETTE Fentanyl (Fentanyl Citrate/Pf 100 Mcg/2 Ml Vial) 25 mcg IVPUSH Q5M PRN; Protocol PRN Reason: Pain, Moderate(Pain Scale 4-6) Ferrous Sulfate (Ferrous Sulfate 324 Mg Tablet.Dr) 324 mg PO DAILY [facility] Last Admin: 04/26/23 07:23 Dose: 324 mg Documented By: ODETTE Fluticasone/Vilanterol (Fluticasone/Vilanterol 200/25 Blst.W.Dev) 2 puff INHALE RDAILY [facility] Last Admin: 04/26/23 07:45 Dose: Not Given Documented By: LENORE Non-Admin Reason: Med not available, pharmacy called. Metoprolol Succinate (Metoprolol Succinate Er 25 Mg Tab.Er.24h) 25 mg PO DAILY [facility]; Protocol Last Admin: 04/26/23 07:23 Dose: 25 mg Documented By: ODETTE Morphine Sulfate (Morphine Sulfate 4 Mg/Ml Cartridge) 4 mg IVPUSH Q4H PRN; Protocol PRN Reason: Pain, Severe (Pain Scale 7-10) Last Admin: 04/26/23 07:21 Dose: 4 mg Documented By: ODETTE Ondansetron HCl (Ondansetron Hcl 4 Mg/2 Ml Vial) 4 mg IVPUSH Q8H PRN PRN Reason: Nausea and Vomiting Oxycodone HCl (Oxycodone Hcl Immed Release 5 Mg Tablet) 10 mg PO Q6H PRN PRN Reason: severe pain Pharmacy Consult (Consult Rx Perform Med Rec) 1 each MISCELLANE ONCE PRN PRN Reason: Consult order Sodium Chloride (0.9 % Sodium Chloride Flush 3 Ml Syringe) 3 ml IVFLUSH QSHIFT [facility] Last Admin: 04/26/23 07:20 Dose: 3 ml Documented By: ODETTE Vitamin D (Cholecalciferol (Vitamin D3) 25 Mcg Tablet) 50 mcg PO DAILY [facility] Last Admin: 04/26/23 07:24 Dose: 50 mcg Documented By: ODETTE Labs 04/26/23 05:40 04/26/23 05:40 Labs: Laboratory Results - last 24 hr 04/26/23 04/26/23 05:40 05:40 MCV 81.8 MCH 25.9 L MCHC 31.6 RDW 15.7 Plt Count 192 MPV 9.9 Absolute Nucleated RBC 0.000 Nucleated RBC % (auto) 0.0 Anion Gap 14 Estim Creat Clear Calc 64.6 Estimated GFR > 60 Random Glucose 148 H Calcium 9.5 Total Bilirubin 1.7 H AST 226 H ALT 290 H Alkaline Phosphatase 167 H Total Protein 7.2 Albumin 3.7 Procedures Date of Service Date of Service: 04/26/23 Progress Note: A&P Assessment and plan (1) Choledocholithiasis: Status: Acute (2) Cholecystitis with cholelithiasis: Status: Acute (3) Elevated LFTs: Status: Acute Plan Continue analgesics, antibiotics and trend labs Await ERCP as per GI Time Spent With Patient Time: Total time managing care of this patient today ____ minutes. Quality Stroke Does the patient have a stroke diagnosis?: No VTE Prior VTE?: No VTE Risk Level:: Medical - moderate - high VTE Device Contraindication: N/A - Device Ordered VTE Drug Contraindication: Treatment Not Indicated
--- NOTE | 2023-04-26 09:19 | HO.PM.IMPN ---
Subjective Subjective Date of Service: 04/26/23 Interval History: This history was taken in Bel[place]ian from the patient. POD#1 lap james has distal CBD stone still has epigastric/RUQ pain tolerating liquids no N/V Review of Systems Review of Systems: Yes all other systems are reviewed and are negative Physical Exam Vital Signs: Vital Signs: Last Vital Signs Temp 97.1 F 04/26/23 07:18 Pulse 97 04/26/23 07:18 Resp 18 04/26/23 07:18 BP 128/68 04/26/23 07:18 Pulse Ox 93 04/26/23 07:18 O2 Del Method Nasal Cannula 04/26/23 07:18 O2 Flow Rate 2.0 04/26/23 07:18 FiO2 24 04/25/23 15:55 BMI result Body Mass Index 42.4 Gen: in no acute distress HEENT: sclera anicteric, moist mucus membranes Neck: supple Lungs: clear to auscultation bilaterally Heart: regular rate and rhythm, no murmurs Abd: soft, obese, 4 lap jamse incisions with dry bandages, tender epigastrium + RUQ Ext: no edema Skin: warm/well-perfused Neuro: alert and oriented x3, no focal findings Psych: appropriate affect Objective Data Active Medications Acetaminophen (Acetaminophen 325 Mg Tablet) 650 mg PO Q6H PRN PRN Reason: Pain, Mild (Pain Scale 1-3) Albuterol Sulfate (Albuterol Sulfate 90 Mcg 8 Gm Inhaler) 2 puff INHALE Q4H PRN PRN Reason: shortness of breath or wheezin Albuterol Sulfate (Albuterol Sulfate (0.083%) 2.5 Mg/3 Ml Vial.Neb) 2.5 mg INHALE Q6H PRN PRN Reason: bronchospasm Albuterol/Ipratropium (Albuterol/Iprat 2.5/0.5mg 3 Ml Ampul.Neb) 3 ml INHALE RQ6H [facility] Last Admin: 04/26/23 05:44 Dose: 3 ml Documented By: IGNACIA Cyanocobalamin (Cyanocobalamin (Vitamin B-12) 1,000 Mcg Tablet) 1,000 mcg PO DAILY [facility] Last Admin: 04/26/23 07:23 Dose: 1,000 mcg Documented By: ODETTE Escitalopram Oxalate (Escitalopram Oxalate 10 Mg Tablet) 10 mg PO DAILY [facility] Last Admin: 04/26/23 07:23 Dose: 10 mg Documented By: ODETTE Fentanyl (Fentanyl Citrate/Pf 100 Mcg/2 Ml Vial) 25 mcg IVPUSH Q5M PRN; Protocol PRN Reason: Pain, Moderate(Pain Scale 4-6) Ferrous Sulfate (Ferrous Sulfate 324 Mg Tablet.Dr) 324 mg PO DAILY [facility] Last Admin: 04/26/23 07:23 Dose: 324 mg Documented By: ODETTE Fluticasone/Vilanterol (Fluticasone/Vilanterol 200/25 Blst.W.Dev) 2 puff INHALE RDAILY [facility] Last Admin: 04/26/23 07:45 Dose: Not Given Documented By: LENORE Non-Admin Reason: Med not available, pharmacy called. Metoprolol Succinate (Metoprolol Succinate Er 25 Mg Tab.Er.24h) 25 mg PO DAILY [facility]; Protocol Last Admin: 04/26/23 07:23 Dose: 25 mg Documented By: ODETTE Morphine Sulfate (Morphine Sulfate 4 Mg/Ml Cartridge) 4 mg IVPUSH Q4H PRN; Protocol PRN Reason: Pain, Severe (Pain Scale 7-10) Last Admin: 04/26/23 07:21 Dose: 4 mg Documented By: ODETTE Ondansetron HCl (Ondansetron Hcl 4 Mg/2 Ml Vial) 4 mg IVPUSH Q8H PRN PRN Reason: Nausea and Vomiting Oxycodone HCl (Oxycodone Hcl Immed Release 5 Mg Tablet) 10 mg PO Q6H PRN PRN Reason: severe pain Pharmacy Consult (Consult Rx Perform Med Rec) 1 each MISCELLANE ONCE PRN PRN Reason: Consult order Sodium Chloride (0.9 % Sodium Chloride Flush 3 Ml Syringe) 3 ml IVFLUSH QSHIFT [facility] Last Admin: 04/26/23 07:20 Dose: 3 ml Documented By: ODETTE Vitamin D (Cholecalciferol (Vitamin D3) 25 Mcg Tablet) 50 mcg PO DAILY [facility] Last Admin: 04/26/23 07:24 Dose: 50 mcg Documented By: ODETTE Labs 04/26/23 05:40 04/26/23 05:40 Labs: Laboratory Results - last 24 hr 04/26/23 04/26/23 05:40 05:40 MCV 81.8 MCH 25.9 L MCHC 31.6 RDW 15.7 Plt Count 192 MPV 9.9 Absolute Nucleated RBC 0.000 Nucleated RBC % (auto) 0.0 Anion Gap 14 Estim Creat Clear Calc 64.6 Estimated GFR > 60 Random Glucose 148 H Calcium 9.5 Total Bilirubin 1.7 H AST 226 H ALT 290 H Alkaline Phosphatase 167 H Total Protein 7.2 Albumin 3.7 Assessment and Plan (1) Cholecystitis with cholelithiasis: Status: Acute Plan d#2 67yo F with chronic LBBB, mild , false positive stress test 11/13/22 with cardiac cath 12/19/22 with only minimal luminal irregularites in LAD + RCA, HTN, HLD, mood disorder, asthma prior episode of dilated CBD attributed to passed CBD stone but did not f/u with Gen Surg for lap james presenting with abd pain + elevated Tbili suggestive of passed stone # acute cholelcystitis with choledocholithiasis - POD#1 lap james - IOC demonstrated a markedly dilated extrahepatic biliary system with a filling defect consistent with a stone impacted in the distal common bile duct - GI consulted, ERCP 04/28 or 04/29 - pip-familia d#1 # HTN - continue metoprolol succinate # HLD - hold statin pending improvement in LFTs # mood disorder - continue escitalopram # asthma NOT in acute exac - continue ICS-LABA + prn albuterol # VTE ppx: SCDs, add LMWH post-ERCP # dispo: eventual home Time Spent With Patient Time: Total time managing care of this patient today _35___ minutes. Quality Stroke Does the patient have a stroke diagnosis?: No VTE Prior VTE?: No VTE Risk Level:: Medical - moderate - high VTE Device Contraindication: N/A - Device Ordered VTE Drug Contraindication: Treatment Not Indicated
--- NOTE | 2023-04-26 10:04 | HO.POSTANES ---
Post Anesthesia Evaluation Post Anesthesia Evaluation Date of Service: 04/26/23 Vital Signs: Vital Signs Temp Pulse Resp BP Pulse Ox O2 Del Method O2 Flow Rate 04/26/23 07:18 97.1 F 97 18 128/68 93 Nasal Cannula 2.0 04/26/23 05:45 82 20 04/26/23 03:30 98.4 F 88 21 H 120/58 L 96 Nasal Cannula 2 04/25/23 23:59 97.5 F 89 20 123/57 L 97 Nasal Cannula 2 Anesthesia: General Endotracheal-GETA Mental Status: Awake Pain Control: Satisfactory (moderate pain) Nausea/Vomiting: None Hydration: Adequate Anesthesia-Related Issues: No Anes. Related Issues
--- NOTE | 2023-04-26 13:00 | MHC.CM.PN ---
pt is now inpt imm given to pt
[2023-04-27] VITALS (11 sets, daily range): BP systolic 121–138; BP diastolic 59–65; PULSE 67–88; RESP 18–20; TEMP 36–36.9; O2SAT 92–94
[2023-04-27 06:31] LABS: Alanine Aminotransferase 224 U/L (0-31); Albumin Level 3.4 g/dL (3.5-5.0); Alkaline Phosphatase 241 U/L (39-117); Anion Gap 14 (12-20); Aspartate Amino Transferase 161 U/L (5-31); Bilirubin Total 2.4 mg/dL (0.0-1.0); Blood Urea Nitrogen 15 mg/dL (9-16); Calcium 9.7 mg/dL (8.4-10.2); Carbon Dioxide 29 mmol/L (22-29); Chloride 99 mmol/L (96-108); Creatinine Clr Calc Pharmacy 65.4; Estimated Glomerular Filt Rate > 60; Glucose Random 131 mg/dL (60-115); Potassium 3.4 mmol/L (3.3-5.1); Sodium 139 mmol/L (135-145); Total Protein 7.1 g/dL (6.5-8.0)
[2023-04-27] MEDS: Fluticasone/Vilanterol 200/25 BLST.W.DEV 2 PUFF INHALE (08:07)
[2023-04-27] MEDS: Cyanocobalamin (Vitamin B-12) 1,000 MCG TABLET 1000 MCG PO (08:28)
[2023-04-27] MEDS: Ferrous Sulfate 324 MG TABLET.DR PO (08:28)
[2023-04-27] MEDS: Escitalopram Oxalate 10 MG TABLET PO (08:28)
[2023-04-27] MEDS: Cholecalciferol (Vitamin D3) 25 MCG TABLET 50 MCG PO (08:28)
[2023-04-27] MEDS: Metoprolol Succinate ER 25 MG TAB.ER.24H PO (08:28)
--- NOTE | 2023-04-27 09:13 | HO.PM.IMPN ---
Subjective Subjective Date of Service: 04/27/23 Review of Systems Follow-up abdominal pain, CBD stone Pain with coughing No appetite Physical Exam Vital Signs: Vital Signs: Last Vital Signs Temp 98.0 F 04/27/23 07:51 Pulse 83 04/27/23 08:07 Resp 18 04/27/23 08:07 BP 133/63 04/27/23 07:51 Pulse Ox 94 04/27/23 07:51 O2 Del Method Nasal Cannula 04/27/23 07:51 O2 Flow Rate 3 04/27/23 07:51 FiO2 24 04/25/23 15:55 BMI result Body Mass Index 42.4 Appearing in no acute distress lung sounds are clear to auscultation heart regular rate rhythm, clear S1, S2 positive bowel sounds, abdomen is soft, nontender neuro patient is alert x3, no focal deficits Objective Data Active Medications Acetaminophen (Acetaminophen 325 Mg Tablet) 650 mg PO Q6H PRN PRN Reason: Pain, Mild (Pain Scale 1-3) Albuterol Sulfate (Albuterol Sulfate 90 Mcg 8 Gm Inhaler) 2 puff INHALE Q4H PRN PRN Reason: shortness of breath or wheezin Albuterol Sulfate (Albuterol Sulfate (0.083%) 2.5 Mg/3 Ml Vial.Neb) 2.5 mg INHALE Q6H PRN PRN Reason: bronchospasm Albuterol/Ipratropium (Albuterol/Iprat 2.5/0.5mg 3 Ml Ampul.Neb) 3 ml INHALE RQ6H [facility] Last Admin: 04/27/23 06:25 Dose: Not Given Documented By: IGNACIA Non-Admin Reason: Patient Asleep Cyanocobalamin (Cyanocobalamin (Vitamin B-12) 1,000 Mcg Tablet) 1,000 mcg PO DAILY [facility] Last Admin: 04/27/23 08:28 Dose: 1,000 mcg Documented By: MARIA T Escitalopram Oxalate (Escitalopram Oxalate 10 Mg Tablet) 10 mg PO DAILY [facility] Last Admin: 04/27/23 08:28 Dose: 10 mg Documented By: MARIA T Fentanyl (Fentanyl Citrate/Pf 100 Mcg/2 Ml Vial) 25 mcg IVPUSH Q5M PRN; Protocol PRN Reason: Pain, Moderate(Pain Scale 4-6) Ferrous Sulfate (Ferrous Sulfate 324 Mg Tablet.) 324 mg PO DAILY [facility] Last Admin: 04/27/23 08:28 Dose: 324 mg Documented By: MARIA T Fluticasone/Vilanterol (Fluticasone/Vilanterol 200/25 Blst.W.Dev) 2 puff INHALE RDAILY [facility] Last Admin: 04/27/23 08:07 Dose: 2 puff Documented By: LENORE Piperacillin Sod/Tazobactam (Sod 3.375 gm/ Sodium Chloride) 50 mls @ 100 mls/hr IV Q6H [facility] Last Infusion: 04/27/23 04:29 Dose: 0 mls/hr Documented By: SOFI Metoprolol Succinate (Metoprolol Succinate Er 25 Mg Tab.Er.24h) 25 mg PO DAILY [facility]; Protocol Last Admin: 04/27/23 08:28 Dose: 25 mg Documented By: MARIA T Morphine Sulfate (Morphine Sulfate 4 Mg/Ml Cartridge) 4 mg IVPUSH Q4H PRN; Protocol PRN Reason: Pain, Severe (Pain Scale 7-10) Last Admin: 04/27/23 02:49 Dose: 4 mg Documented By: SOFI Ondansetron HCl (Ondansetron Hcl 4 Mg/2 Ml Vial) 4 mg IVPUSH Q8H PRN PRN Reason: Nausea and Vomiting Oxycodone HCl (Oxycodone Hcl Immed Release 5 Mg Tablet) 10 mg PO Q6H PRN PRN Reason: severe pain Pharmacy Consult (Consult Rx Perform Med Rec) 1 each MISCELLANE ONCE PRN PRN Reason: Consult order Sodium Chloride (0.9 % Sodium Chloride Flush 3 Ml Syringe) 3 ml IVFLUSH QSHIFT [facility] Last Admin: 04/27/23 08:28 Dose: 3 ml Documented By: MARIA T Vitamin D (Cholecalciferol (Vitamin D3) 25 Mcg Tablet) 50 mcg PO DAILY [facility] Last Admin: 04/27/23 08:28 Dose: 50 mcg Documented By: MARIA T Labs 04/26/23 05:40 04/27/23 05:41 Labs: Laboratory Results - last 24 hr 04/27/23 05:41 Anion Gap 14 Estim Creat Clear Calc 65.4 Estimated GFR > 60 Random Glucose 131 H Calcium 9.7 Total Bilirubin 2.4 H AST 161 H ALT 224 H Alkaline Phosphatase 241 H Total Protein 7.1 Albumin 3.4 L Assessment and Plan (1) Cholecystitis with cholelithiasis: Status: Acute Plan 67yo F with chronic LBBB, mild , false positive stress test 11/13/22 with cardiac cath 12/19/22 with only minimal luminal irregularites in LAD + RCA, HTN, HLD, mood disorder, asthma prior episode of dilated CBD attributed to passed CBD stone but did not f/u with Gen Surg for lap james, presenting with abd pain + elevated Tbili suggestive of passed stone Acute cholelcystitis with choledocholithiasis POD2 lap james IOC demonstrated a markedly dilated extrahepatic biliary system with a filling defect consistent with a stone impacted in the distal common bile duct GI consulted, ERCP 04/28 or 04/29 Continue Zosyn HTN continue metoprolol succinate HLD hold statin pending improvement in LFTs mood disorder continue escitalopram asthma NOT in acute exac continue ICS-LABA + prn albuterol VTE ppx: SCDs, add LMWH post-ERCP Attending Dr. Martínez dispo: eventual home Continue hospitalization for treatment of choledocholithiasis requiring ERCP Time Spent With Patient Time: Total time managing care of this patient today ____ minutes. Quality Stroke Does the patient have a stroke diagnosis?: No VTE Prior VTE?: No VTE Risk Level:: Medical - moderate - high VTE Device Contraindication: N/A - Device Ordered VTE Drug Contraindication: Treatment Not Indicated
--- NOTE | 2023-04-27 09:39 | PM.PNGS ---
Subjective Subjective Date of Service: 04/27/23 Patient reports: feels better Interval history: The patient is seen in coverage She reports ongoing abdominal pain but is eating melon this morning. We discussed the fact that any food can cause her to have abdominal pain since she has choledocholithiasis. She otherwise denies difficulty breathing, shortness of breath and states she has been out of bed to the bathroom Physical Exam Vital Signs: Vital Signs: Last Vital Signs Temp 98.0 F 04/27/23 07:51 Pulse 83 04/27/23 08:07 Resp 18 04/27/23 08:07 BP 133/63 04/27/23 07:51 Pulse Ox 94 04/27/23 07:51 O2 Del Method Nasal Cannula 04/27/23 07:51 O2 Flow Rate 3 04/27/23 07:51 FiO2 24 04/25/23 15:55 BMI result Body Mass Index 42.4 On exam she is anicteric She is nontoxic She is in no respiratory distress Abdomen is obese; dressings are intact; appropriate incisional tenderness postop is present Objective Data Active Medications Acetaminophen (Acetaminophen 325 Mg Tablet) 650 mg PO Q6H PRN PRN Reason: Pain, Mild (Pain Scale 1-3) Albuterol Sulfate (Albuterol Sulfate 90 Mcg 8 Gm Inhaler) 2 puff INHALE Q4H PRN PRN Reason: shortness of breath or wheezin Albuterol Sulfate (Albuterol Sulfate (0.083%) 2.5 Mg/3 Ml Vial.Neb) 2.5 mg INHALE Q6H PRN PRN Reason: bronchospasm Albuterol/Ipratropium (Albuterol/Iprat 2.5/0.5mg 3 Ml Ampul.Neb) 3 ml INHALE RQ6H [facility] Last Admin: 04/27/23 06:25 Dose: Not Given Documented By: IGNACIA Non-Admin Reason: Patient Asleep Cyanocobalamin (Cyanocobalamin (Vitamin B-12) 1,000 Mcg Tablet) 1,000 mcg PO DAILY [facility] Last Admin: 04/27/23 08:28 Dose: 1,000 mcg Documented By: MARIA T Escitalopram Oxalate (Escitalopram Oxalate 10 Mg Tablet) 10 mg PO DAILY [facility] Last Admin: 04/27/23 08:28 Dose: 10 mg Documented By: MARIA T Fentanyl (Fentanyl Citrate/Pf 100 Mcg/2 Ml Vial) 25 mcg IVPUSH Q5M PRN; Protocol PRN Reason: Pain, Moderate(Pain Scale 4-6) Ferrous Sulfate (Ferrous Sulfate 324 Mg Tablet.Dr) 324 mg PO DAILY [facility] Last Admin: 04/27/23 08:28 Dose: 324 mg Documented By: MARIA T Fluticasone/Vilanterol (Fluticasone/Vilanterol 200/25 Blst.W.Dev) 2 puff INHALE RDAILY [facility] Last Admin: 04/27/23 08:07 Dose: 2 puff Documented By: LENORE Piperacillin Sod/Tazobactam (Sod 3.375 gm/ Sodium Chloride) 50 mls @ 100 mls/hr IV Q6H [facility] Last Infusion: 04/27/23 04:29 Dose: 0 mls/hr Documented By: SOFI Metoprolol Succinate (Metoprolol Succinate Er 25 Mg Tab.Er.24h) 25 mg PO DAILY [facility]; Protocol Last Admin: 04/27/23 08:28 Dose: 25 mg Documented By: MARIA T Morphine Sulfate (Morphine Sulfate 4 Mg/Ml Cartridge) 4 mg IVPUSH Q4H PRN; Protocol PRN Reason: Pain, Severe (Pain Scale 7-10) Last Admin: 04/27/23 02:49 Dose: 4 mg Documented By: SOFI Ondansetron HCl (Ondansetron Hcl 4 Mg/2 Ml Vial) 4 mg IVPUSH Q8H PRN PRN Reason: Nausea and Vomiting Oxycodone HCl (Oxycodone Hcl Immed Release 5 Mg Tablet) 10 mg PO Q6H PRN PRN Reason: severe pain Pharmacy Consult (Consult Rx Perform Med Rec) 1 each MISCELLANE ONCE PRN PRN Reason: Consult order Sodium Chloride (0.9 % Sodium Chloride Flush 3 Ml Syringe) 3 ml IVFLUSH QSHIFT [facility] Last Admin: 04/27/23 08:28 Dose: 3 ml Documented By: MARIA T Vitamin D (Cholecalciferol (Vitamin D3) 25 Mcg Tablet) 50 mcg PO DAILY [facility] Last Admin: 04/27/23 08:28 Dose: 50 mcg Documented By: MARIA T Labs 04/26/23 05:40 04/27/23 05:41 Labs: Laboratory Results - last 24 hr 04/27/23 05:41 Anion Gap 14 Estim Creat Clear Calc 65.4 Estimated GFR > 60 Random Glucose 131 H Calcium 9.7 Total Bilirubin 2.4 H AST 161 H ALT 224 H Alkaline Phosphatase 241 H Total Protein 7.1 Albumin 3.4 L Procedures Date of Service Date of Service: 04/27/23 Progress Note: A&P Assessment and plan (1) Choledocholithiasis: Status: Acute (2) Cholecystitis with cholelithiasis: Status: Acute (3) Elevated LFTs: Status: Acute (4) Morbid obesity: Status: Acute Plan Patient for ERCP early this week. If any question, would make NPO after midnight tonight and confirm ERCP date with GI. Encourage incentive spirometry and ambulation Dr. Bear to resume care tomorrow, 04/28 Time Spent With Patient Time: Total time managing care of this patient today ____ minutes. Quality Stroke Does the patient have a stroke diagnosis?: No VTE Prior VTE?: No VTE Risk Level:: Medical - moderate - high VTE Device Contraindication: N/A - Device Ordered VTE Drug Contraindication: Treatment Not Indicated
[2023-04-27] MEDS: oxyCODONE HCl Immed Release 5 MG TABLET 10 MG PO (10:05)
[2023-04-27] MEDS: Albuterol/Iprat 2.5/0.5MG 3 ML AMPUL.NEB INHALE ×2 (11:27→17:07)
[2023-04-28] VITALS (13 sets, daily range): BP systolic 126–164; BP diastolic 61–88; PULSE 62–72; RESP 14–21; TEMP 36.1–36.7; O2SAT 92–97
--- NOTE | 2023-04-28 04:19 | MHC.PIE ---
p; pt c/o abd/enigmatic pain. note; prn morphine given at 0100, pt abd noted with distention and tenderness i; dr quigley notified. new order tums e; will cont to monitor
[2023-04-28] MEDS: Albuterol/Iprat 2.5/0.5MG 3 ML AMPUL.NEB INHALE ×3 (05:19→17:11)
[2023-04-28] MEDS: Escitalopram Oxalate 10 MG TABLET PO (08:47)
[2023-04-28] MEDS: Cyanocobalamin (Vitamin B-12) 1,000 MCG TABLET 1000 MCG PO (08:47)
[2023-04-28] MEDS: Ferrous Sulfate 324 MG TABLET.DR PO (08:47)
[2023-04-28] MEDS: Cholecalciferol (Vitamin D3) 25 MCG TABLET 50 MCG PO (08:47)
[2023-04-28] MEDS: Metoprolol Succinate ER 25 MG TAB.ER.24H PO (08:47)
--- NOTE | 2023-04-28 08:57 | PM.PNGS ---
Subjective Subjective Date of Service: 04/28/23 Interval history: Awaiting ERCP today. C/o incisional pain. Not improved at all over the weekend. Ambulation has been limited due to pain. Physical Exam Vital Signs: Vital Signs: Last Vital Signs Temp 97.0 F 04/28/23 07:46 Pulse 70 04/28/23 07:46 Resp 18 04/28/23 07:46 BP 141/80 H 04/28/23 07:46 Pulse Ox 96 04/28/23 07:46 O2 Del Method Nasal Cannula 04/28/23 07:46 O2 Flow Rate 3 04/28/23 07:46 FiO2 24 04/25/23 15:55 BMI result Body Mass Index 42.4 Const: General: comfortable, no acute distress and alert Orientation/consciousness: patient oriented x3 Resp: Effort & Inspection: normal respiratory effort GI: Inspection: No distended and Yes incision (clean) Palpation (GI): Soft to palpation, Tenderness to palpation present (GI) (mild incisional), no guarding and not rigid Skin: General skin exam: no rashes or lesions noted Neuro: General: patient oriented x3 and moves all extremities Objective Data Active Medications Acetaminophen (Acetaminophen 325 Mg Tablet) 650 mg PO Q6H PRN PRN Reason: Pain, Mild (Pain Scale 1-3) Albuterol Sulfate (Albuterol Sulfate 90 Mcg 8 Gm Inhaler) 2 puff INHALE Q4H PRN PRN Reason: shortness of breath or wheezin Albuterol Sulfate (Albuterol Sulfate (0.083%) 2.5 Mg/3 Ml Vial.Neb) 2.5 mg INHALE Q6H PRN PRN Reason: bronchospasm Albuterol/Ipratropium (Albuterol/Iprat 2.5/0.5mg 3 Ml Ampul.Neb) 3 ml INHALE RQ6H [facility] Last Admin: 04/28/23 05:19 Dose: 3 ml Documented By: IGNACIA Cyanocobalamin (Cyanocobalamin (Vitamin B-12) 1,000 Mcg Tablet) 1,000 mcg PO DAILY [facility] Last Admin: 04/28/23 08:47 Dose: 1,000 mcg Documented By: MARIA T Escitalopram Oxalate (Escitalopram Oxalate 10 Mg Tablet) 10 mg PO DAILY [facility] Last Admin: 04/28/23 08:47 Dose: 10 mg Documented By: MARIA T Fentanyl (Fentanyl Citrate/Pf 100 Mcg/2 Ml Vial) 25 mcg IVPUSH Q5M PRN; Protocol PRN Reason: Pain, Moderate(Pain Scale 4-6) Ferrous Sulfate (Ferrous Sulfate 324 Mg Tablet.Dr) 324 mg PO DAILY [facility] Last Admin: 04/28/23 08:47 Dose: 324 mg Documented By: MARIA T Fluticasone/Vilanterol (Fluticasone/Vilanterol 200/25 Blst.W.Dev) 2 puff INHALE RDAILY [facility] Last Admin: 04/28/23 07:57 Dose: Not Given Documented By: GERONIMO Non-Admin Reason: Patient Refused Piperacillin Sod/Tazobactam (Sod 3.375 gm/ Sodium Chloride) 50 mls @ 100 mls/hr IV Q6H [facility] Last Infusion: 04/28/23 04:21 Dose: 0 mls/hr Documented By: DARIUS Metoprolol Succinate (Metoprolol Succinate Er 25 Mg Tab.Er.24h) 25 mg PO DAILY [facility]; Protocol Last Admin: 04/28/23 08:47 Dose: 25 mg Documented By: MARIA T Morphine Sulfate (Morphine Sulfate 4 Mg/Ml Cartridge) 4 mg IVPUSH Q4H PRN; Protocol PRN Reason: Pain, Severe (Pain Scale 7-10) Last Admin: 04/28/23 00:52 Dose: 4 mg Documented By: DARIUS Ondansetron HCl (Ondansetron Hcl 4 Mg/2 Ml Vial) 4 mg IVPUSH Q8H PRN PRN Reason: Nausea and Vomiting Last Admin: 04/27/23 22:51 Dose: 4 mg Documented By: DRAIUS Oxycodone HCl (Oxycodone Hcl Immed Release 5 Mg Tablet) 10 mg PO Q6H PRN PRN Reason: severe pain Last Admin: 04/27/23 10:05 Dose: 10 mg Documented By: MARIA T Pharmacy Consult (Consult Rx Perform Med Rec) 1 each MISCELLANE ONCE PRN PRN Reason: Consult order Sodium Chloride (0.9 % Sodium Chloride Flush 3 Ml Syringe) 3 ml IVFLUSH QSHIFT [facility] Last Admin: 04/28/23 08:50 Dose: 3 ml Documented By: MARIA T Vitamin D (Cholecalciferol (Vitamin D3) 25 Mcg Tablet) 50 mcg PO DAILY [facility] Last Admin: 04/28/23 08:47 Dose: 50 mcg Documented By: MARIA T Labs 04/26/23 05:40 04/27/23 05:41 Procedures Date of Service Date of Service: 04/28/23 Progress Note: A&P Assessment and plan (1) Cholecystitis with cholelithiasis: Status: Acute (2) Choledocholithiasis: Status: Acute Plan 67 year old female admitted with acute cholecystitis, choledocolithiasis who underwent lap CCY with IOC 04/25/23. Filling defect confirmed on intraop cholangiogram. Awaiting ERCP this morning. Doing well from surgical standpoint. Incisions clean. Strongly encouraged OOB/ambulation. Time Spent With Patient Time: Total time managing care of this patient today ____ minutes. Quality Stroke Does the patient have a stroke diagnosis?: No VTE Prior VTE?: No VTE Risk Level:: Medical - moderate - high VTE Device Contraindication: N/A - Device Ordered VTE Drug Contraindication: Treatment Not Indicated
--- NOTE | 2023-04-28 10:33 | HO.PM.IMPN ---
Subjective Subjective Date of Service: 04/28/23 Interval History: ongoing RUQ pain, no fever malaise NPO for ERCP Review of Systems Review of Systems: Yes all other systems are reviewed and are negative Physical Exam Vital Signs: Vital Signs: Last Vital Signs Temp 97.0 F 04/28/23 07:46 Pulse 70 04/28/23 07:46 Resp 18 04/28/23 07:46 BP 141/80 H 04/28/23 07:46 Pulse Ox 96 04/28/23 07:46 O2 Del Method Nasal Cannula 04/28/23 07:46 O2 Flow Rate 3 04/28/23 07:46 FiO2 24 04/25/23 15:55 BMI result Body Mass Index 42.4 Gen: in no acute distress HEENT: sclera anicteric, moist mucus membranes Neck: supple Lungs: clear to auscultation bilaterally Heart: regular rate and rhythm, no murmurs Abd: soft, obese, 4 lap james incisions with dry bandages, tender epigastrium + RUQ Ext: no edema Skin: warm/well-perfused Neuro: alert and oriented x3, no focal findings Psych: appropriate affect Objective Data Active Medications Acetaminophen (Acetaminophen 325 Mg Tablet) 650 mg PO Q6H PRN PRN Reason: Pain, Mild (Pain Scale 1-3) Albuterol Sulfate (Albuterol Sulfate 90 Mcg 8 Gm Inhaler) 2 puff INHALE Q4H PRN PRN Reason: shortness of breath or wheezin Albuterol Sulfate (Albuterol Sulfate (0.083%) 2.5 Mg/3 Ml Vial.Neb) 2.5 mg INHALE Q6H PRN PRN Reason: bronchospasm Albuterol/Ipratropium (Albuterol/Iprat 2.5/0.5mg 3 Ml Ampul.Neb) 3 ml INHALE RQ6H [facility] Last Admin: 04/28/23 05:19 Dose: 3 ml Documented By: IGNACIA Cyanocobalamin (Cyanocobalamin (Vitamin B-12) 1,000 Mcg Tablet) 1,000 mcg PO DAILY [facility] Last Admin: 04/28/23 08:47 Dose: 1,000 mcg Documented By: MARIA T Escitalopram Oxalate (Escitalopram Oxalate 10 Mg Tablet) 10 mg PO DAILY [facility] Last Admin: 04/28/23 08:47 Dose: 10 mg Documented By: MARIA T Fentanyl (Fentanyl Citrate/Pf 100 Mcg/2 Ml Vial) 25 mcg IVPUSH Q5M PRN; Protocol PRN Reason: Pain, Moderate(Pain Scale 4-6) Ferrous Sulfate (Ferrous Sulfate 324 Mg Tablet.Dr) 324 mg PO DAILY [facility] Last Admin: 04/28/23 08:47 Dose: 324 mg Documented By: MARIA T Fluticasone/Vilanterol (Fluticasone/Vilanterol 200/25 Blst.W.Dev) 2 puff INHALE RDAILY [facility] Last Admin: 04/28/23 07:57 Dose: Not Given Documented By: GERONIMO Non-Admin Reason: Patient Refused Piperacillin Sod/Tazobactam (Sod 3.375 gm/ Sodium Chloride) 50 mls @ 100 mls/hr IV Q6H [facility] Last Infusion: 04/28/23 04:21 Dose: 0 mls/hr Documented By: DARIUS Metoprolol Succinate (Metoprolol Succinate Er 25 Mg Tab.Er.24h) 25 mg PO DAILY [facility]; Protocol Last Admin: 04/28/23 08:47 Dose: 25 mg Documented By: MARIA T Morphine Sulfate (Morphine Sulfate 4 Mg/Ml Cartridge) 4 mg IVPUSH Q4H PRN; Protocol PRN Reason: Pain, Severe (Pain Scale 7-10) Last Admin: 04/28/23 00:52 Dose: 4 mg Documented By: DARIUS Ondansetron HCl (Ondansetron Hcl 4 Mg/2 Ml Vial) 4 mg IVPUSH Q8H PRN PRN Reason: Nausea and Vomiting Last Admin: 04/27/23 22:51 Dose: 4 mg Documented By: DARIUS Oxycodone HCl (Oxycodone Hcl Immed Release 5 Mg Tablet) 10 mg PO Q6H PRN PRN Reason: severe pain Last Admin: 04/27/23 10:05 Dose: 10 mg Documented By: MARIA T Pharmacy Consult (Consult Rx Perform Med Rec) 1 each MISCELLANE ONCE PRN PRN Reason: Consult order Sodium Chloride (0.9 % Sodium Chloride Flush 3 Ml Syringe) 3 ml IVFLUSH QSHIFT [facility] Last Admin: 04/28/23 08:50 Dose: 3 ml Documented By: MARIA T Vitamin D (Cholecalciferol (Vitamin D3) 25 Mcg Tablet) 50 mcg PO DAILY [facility] Last Admin: 04/28/23 08:47 Dose: 50 mcg Documented By: MARIA T Labs 04/26/23 05:40 04/27/23 05:41 Assessment and Plan (1) Cholecystitis with cholelithiasis: Status: Acute Plan d5 67yo F with chronic LBBB, mild , false positive stress test 11/13/22 with cardiac cath 12/19/22 with only minimal luminal irregularites in LAD + RCA, HTN, HLD, mood disorder, asthma prior episode of dilated CBD attributed to passed CBD stone but did not f/u with Gen Surg for lap james, presenting with abd pain + elevated Tbili suggestive of passed stone acute cholelcystitis with choledocholithiasis - POD3 lap james - IOC demonstrated a markedly dilated extrahepatic biliary system with a filling defect consistent with a stone impacted in the distal common bile duct - GI consulted, ERCP today - pip/famiila d#3 HTN - continue metoprolol succinate HLD - hold statin pending improvement in LFTs mood disorder - continue escitalopram asthma NOT in acute exac - continue ICS-LABA + prn albuterol VTE ppx: SCDs, add LMWH post-ERCP dispo: eventual home In my clinical judgment, the patient requires continued inpatient hospitalization for the following reasons: ERCP, postop care Time Spent With Patient Time: Total time managing care of this patient today __40__ minutes. Quality Stroke Does the patient have a stroke diagnosis?: No VTE Prior VTE?: No VTE Risk Level:: Medical - moderate - high VTE Device Contraindication: N/A - Device Ordered VTE Drug Contraindication: Treatment Not Indicated
--- NOTE | 2023-04-28 15:01 | MHC.SHP ---
Pre-Procedural Eval Section A Date of Service: 04/28/23 The patient is an INPATIENT: Yes The History & Physical has been completed within 30 days and I have reviewed it.: Yes Section B Chief Complaint: Abd pain Allergies: Allergies Allergy/AdvReac Type Severity Reaction Status Date / Time latex [LATEX] Allergy Intermediate RASH Verified 02/20/23 13:15 Plan Diagnosis/Plan: Unchanged I have reviewed the history and physical and performed a pertinent physical examination on my patient. No changes have occurred unless specified. Time Spent With Patient Time: Total time managing care of this patient today ____ minutes.
--- NOTE | 2023-04-28 15:02 | W.PM.OPN ---
Operative Note Operative Note Date of Service: 04/28/23 Narrative: Description: Endoscopic retrograde cholangiopancreatography (ERCP) PROCEDURE: Endoscopic retrograde cholangiopancreatography INDICATION FOR THE PROCEDURE: Patient with a history of cholecystectomy and IOC with CBD stone MEDICATIONS: General anesthesia, rectal indomethacin 100 mg, The risks of the procedure were made aware to the patient and consisted of medication reaction, bleeding, perforation, aspiration, and post ERCP pancreatitis. DESCRIPTION OF PROCEDURE: After informed consent and appropriate sedation, the duodenoscope was inserted into the oropharynx, down the esophagus, and into the stomach. The scope was then advanced through the pylorus to duodenal sweep. The orifice could not be visualized and some time was spent trying to locate it. A diverticulum was noted and eventually a spurt of bile was noted emanating from it. Various approaches including deployment of clips to push back folds was used but the orifice could not be accessed although it was seen. At this point the procedure was aborted. There was some minor oozing which had ceased by the end of the procedure. The stomach was then decompressed and the endoscope was withdrawn. FINDINGS: 1. CBD stone with ampullary orifice in a duodenal diverticulum. RECOMMENDATIONS: 1. clears if tolerated 2. transfer to higher center in case needs alternative techniques to access duct e.g EUS guided rendezvous , or alternative positioning e.g supine rather than prone position
--- NOTE | 2023-04-28 15:48 | PM.DS ---
DS: Providers Provider Date of Service: 04/28/23 Date of admission: 04/26/23 12:49 Primary care physician: Adrianna Richter MD Consults: 04/25/23 01:12 Consult to General Surgery [place]ine [place]ing [place] [facility] [place] Reason for consultation: biliary colic 04/25/23 07:46 Consult to Gastroenterology Routine Consulting Provider[place] [facility] [place] Reason for consultation: ?passed stone DS: Diagnosis Discharge Diagnosis (1) Cholecystitis with cholelithiasis: Status: Acute (2) Choledocholithiasis: Status: Acute DS: Summary Hospital Course Hospital Course: HPI: 67 yearol old female with chronic LBBB, mild , false positive stress test 11/13/22 with cardiac cath 12/19/22 with only minimal luminal irregularites in LAD and RCA, HTN, HLD, hypothyroidism mood disorder, asthma, history of Choledocholithiasis, choledocholithiasis with dilated CBD attributed to passed CBD stone in July 2022, but failed to follow up with with General Surgery for cholecystectomy. She presented this time on 04/25/23 with abdominal pain, ?elevated LFTs with a bilirubin of 2.9, AST/ALT 227/229, alk phos 188. No leukocytosis. She underwent was initiated Zosyn and underwent Lap Madeleine the same day (see below) Hospital course: Patient presented with abdominal pain and work up revealed acute cholecystitis, choledocholithias and underwent Lap Madeleine on 04/25/23 with intraoperative cholangiogram (IOC). She underwent ERCP by Dr. Friedman today 04/28/23 with the following finding and recommendation After informed consent and appropriate sedation, the duodenoscope was inserted into the oropharynx, down the esophagus, and into the stomach. The scope was then advanced through the pylorus to duodenal sweep. The orifice could not be visualized and some time was spent trying to locate it. A diverticulum was noted and eventually a spurt of bile was noted emanating from it. Various approaches including deployment of clips to push back folds was used but the orifice could not be accessed although it was seen. At this point the procedure was aborted. There was some minor oozing which had ceased by the end of the procedure. The stomach was then decompressed and the endoscope was withdrawn. FINDINGS: 1. CBD stone with ampullary orifice in a duodenal diverticulum. RECOMMENDATIONS: 1. clears if tolerated 2. transfer to higher center in case needs alternative techniques to access duct e.g EUS guided rendezvous , or alternative positioning e.g supine rather than prone position She is afebrile last WBC 04/27 11K, 04/27/23 Tbili 2.4, AST 161, ALT 224, AKP 241. imagings: (loaded to [facility]) US of abdomen 04/24/23: Cholelithiasis without sonographic evidence of cholecystitis MRCP: 04/25/23: Question distal common bile duct stone measuring 6 x 7 mm. This is best appreciated on coronal T2 sequences. This is not definitely appreciated on MRCP sequences. There is no intra or extrahepatic biliary duct dilatation. Slightly dilated gallbladder with gallstones and sludge. Slightly thickened edematous gallbladder wall. Appearance is suggestive of acute cholecystitis. IOC 04/28/23: Cholecystectomy clip. Intraoperative cholangiogram demonstrates a mildly dilated common bile duct and an obstructing filling defect within the distal CBD (i.e., choledocholithiasis). The submitted images do not demonstrate any obvious contrast flow into the duodenum. ? She has been on Zosyn since 04/25/23 Chronic issues: HTN-- continue metoprolol succinate HLD-- hold statin pending improvement in LFTs mood disorder-- continue escitalopram asthma NOT in acute exac-- continue ICS-LABA + prn albuterol Transfer to [facility] for reattempt at ERCP, accepted under Chilo Alexis. Patient is agreable to transfer, I also discussed it with her primary contact melania Amaya [phone] and she favors the plan Time Spent with Patient Time attestation: Total time managing care of this patient today ____ minutes. Discharge coordination time: Greater than 30 minutes Quality: Safe Use of Opioids Does Pt have an Active Cancer Diagnosis on the Problem List?: No Quality: Stroke Does the patient have a stroke diagnosis?: No Physical Exam Vital Signs: Vital Signs: Last Vital Signs Temp 98.1 F 04/28/23 15:27 Pulse 65 04/28/23 15:37 Resp 18 04/28/23 15:37 BP 156/81 H 04/28/23 15:37 Pulse Ox 95 04/28/23 15:37 O2 Del Method Simple Mask 04/28/23 15:37 O2 Flow Rate 4 04/28/23 15:37 FiO2 24 04/25/23 15:55 BMI result Body Mass Index 42.4 DS: Data Data Completed and Pending Pending studies at discharge: Pending at discharge 04/25/23 14:49 Surgical [PTH] Routine Discharge Plan Discharge Anticipated Discharge Date/Time: 04/28/23 16:06 Patient Disposition: Xfer Acute Care Hospital Discharge Diagnosis: Cholecystitis, Choledocholithiasis Referrals: Adrianna Sharp MD [Primary Care Provider] - 1 Week Sly Bear MD [Physician] - 1 Week Discharge Medications: New piperacillin-tazobactam 3.375 gram Recon Soln 3.375 g IV Q6H Qty: 8 0RF Continued (DME) miscellaneous medical supply [facility] See Rx Instructions .ROUTE .MEDSUPPLY Qty: 1 0RF Rx Instructions: GRAB BAR 18 (DME) miscellaneous medical supply Misc See Rx Instructions .ROUTE .MEDSUPPLY Qty: 1 0RF Rx Instructions: toilet safety frame (DME) Ultra-Light Rollator Mis See Rx Instructions .ROUTE .MEDSUPPLY Qty: 1 0RF Rx Instructions: As directed Proair Digihaler 90 mcg/actuation aero powdr breath act w/sensor 2 inh inhalation Q4-6H PRN (Reason: shortness of breath or wheezing) 30 Days Qty: 1 6RF (DME) nebulizers [AeroEclipse II Nebulizer] [facility] [place] .Route Qty: 1 0RF Rx Instructions: As directed albuterol sulfate 2.5 mg /3 mL (0.083 %) solution for nebulization 2.5 mg inhalation Q6H PRN (Reason: bronchospasm) 30 Days Qty: 75 1RF metoprolol succinate 25 mg tablet extended release 24 hr 25 mg PO DAILY 90 Days Qty: 90 3RF cyanocobalamin (vitamin B-12) [Vitamin B-12] 1,000 mcg tablet 1,000 mcg PO DAILY Qty: 90 1RF furosemide 20 mg tablet 20 mg PO DAILY 90 Days Qty: 90 3RF escitalopram oxalate 10 mg tablet 10 mg PO DAILY 90 Days Qty: 90 1RF cholecalciferol (vitamin D3) [Vitamin D3] 50 mcg (2,000 unit) tablet 50 mcg PO DAILY Qty: 30 5RF atorvastatin 20 mg tablet 20 mg PO DAILY 90 Days Qty: 90 3RF ferrous sulfate 324 mg (65 mg iron) tablet,delayed release (DR/EC) 324 mg PO DAILY 90 Days Qty: 90 1RF oxycodone-acetaminophen 10-325 mg tablet 1 tab PO Q6H PRN (Reason: pain) 30 Days Qty: 120 0RF ondansetron 8 mg tablet,disintegrating 8 mg PO Q8H PRN (Reason: nausea and vomiting) 30 Days Qty: 90 0RF Advair HFA 230-21 mcg/actuation HFA aerosol inhaler 2 puff inhalation Q12H 30 Days Qty: 1 6RF Discharge Orders: Discharge Order (Routine); Ordered 04/28/23 Ordered By: Navneet Martínez Diet: Advance to usual diet Activity on Discharge: No heavy lifting Stand Alone Forms: Patient Portal Discharge page Activity Restrictions/Additional Instructions: Ice to wound 20 minutes several times today and tomorrow. May shower in 2 days. Remove outside dressing only. Leave Steri-Strips intact. No strenuous activities Care Plan Goals: Full recovery from gallbladder disease Health Concerns: Choledocholithiasis Plan of Treatment: Transfer to [facility] for reattempt at ERCP Assessment: as above
--- NOTE | 2023-04-28 15:49 | MHC.CM.PN ---
per rounds pt to have an erep today dc expected in the next 1 to 2 days plan remains home no services
[2023-04-28 17:37] LABS: Alanine Aminotransferase 396 U/L (0-31); Albumin Level 3.3 g/dL (3.5-5.0); Alkaline Phosphatase 297 U/L (39-117); Aspartate Amino Transferase 434 U/L (5-31); Bilirubin Direct 3.4 mg/dL (0.0-0.5); Bilirubin Total 5.1 mg/dL (0.0-1.0); Total Protein 7.4 g/dL (6.5-8.0)
== END 2023-04-28 18:32 | disposition short-term general hospital (02) | DRG 418 ==
LOC: HO.ED 22:29 → HO.EDOVER 04-25 01:16 → HO.S3 04-25 02:13
PROVIDERS: Internal Medicine; Internal Medicine Gastroenterology; Surgery; Admitting Provider Student in an Organized Health Care Education/Training Program; Emergency Provider Student in an Organized Health Care Education/Training Program; PCP Internal Medicine; Visit Provider Family Medicine
PROC: 0FT44ZZ Resection of Gallbladder, Percutaneous Endoscopic Approach (ICD-10-PCS; CPT 47562; principal; 2023-04-25 13:40)
PROC: (CPT 43260; principal; 2023-04-28 12:30)
DX: K80.66 Calculus of gallbladder and bile duct with acute and chronic cholecystitis without obstruction (principal); K42.0 Umbilical hernia with obstruction, without gangrene; Z68.41 Body mass index [BMI] 40.0-44.9, adult; K57.10 Diverticulosis of small intestine without perforation or abscess without bleeding; E78.2 Mixed hyperlipidemia; I44.7 Left bundle-branch block, unspecified; E66.01 Morbid (severe) obesity due to excess calories; F32.9 Major depressive disorder, single episode, unspecified; I10 Essential (primary) hypertension; J45.909 Unspecified asthma, uncomplicated; Z91.040 Latex allergy status; Z79.899 Other long term (current) drug therapy
CPT/HCPCS: 36415; 71046; 74181; 76705; 80048; 80053; 80076; 81003; 83690; 85025; 85027; 88304; 93005; 94640; 94660; 99285; C1726; C1769; J0131; J0330; J1100; J1610; J2250; J2270; J2405; J2543; J3010; Q9967

== ENCOUNTER → 2023-04-25 01:12 | Outpatient (BNV) | payer OTHER, SELFPAY | PROVIDERS: Admitting Provider Student in an Organized Health Care Education/Training Program; Emergency Provider Student in an Organized Health Care Education/Training Program; PCP Internal Medicine; Visit Provider Internal Medicine | DX: K80.50 Calculus of bile duct without cholangitis or cholecystitis without obstruction (principal) | CPT/HCPCS: 43260 ==

== ENCOUNTER → 2023-04-25 01:12 | Outpatient (BNV) | payer OTHER, SELFPAY | PROVIDERS: Admitting Provider Student in an Organized Health Care Education/Training Program; Emergency Provider Student in an Organized Health Care Education/Training Program; PCP Internal Medicine; Visit Provider Physician Assistant Surgical | DX: K80.10 Calculus of gallbladder with chronic cholecystitis without obstruction (principal); K80.50 Calculus of bile duct without cholangitis or cholecystitis without obstruction | CPT/HCPCS: 47563; 99024; 99222 ==

== ENCOUNTER → 2023-04-25 01:12 | Outpatient (BNV) | payer OTHER, SELFPAY | PROVIDERS: Admitting Provider Student in an Organized Health Care Education/Training Program; Emergency Provider Student in an Organized Health Care Education/Training Program; PCP Internal Medicine; Visit Provider Student in an Organized Health Care Education/Training Program | DX: K80.10 Calculus of gallbladder with chronic cholecystitis without obstruction (principal); K80.50 Calculus of bile duct without cholangitis or cholecystitis without obstruction | CPT/HCPCS: 99222; 99232; 99239; 99499 ==

== ENCOUNTER 2023-05-22 11:09 | Outpatient (AMB) | payer OTHER, SELFPAY ==
[2023-05-22 11:14] VITALS: BP 118/82; PULSE 64; O2SAT 95; BMI 40.8
--- NOTE | 2023-05-22 11:14 | A.OFFVIS_ITS ---
Intake Vital Signs 05/22/23 11:14 Height 4 ft 11 in Weight 202 lb 0.6 oz BMI 40.8 BP 118/82 Blood Pressure Location Rt brachial Position Sitting Pulse 64 Pulse Source Pulse Oximeter Pulse Oximetry (%) 95 Oxygen Delivery Method Room Air Intake Visit Reasons: V G0439 Intake Note: Patient is here for an Annual Wellness Visit. Assembler Cards And Announcements Required: No Allergies latex [LATEX] Allergy (Intermediate, Verified 05/22/23 11:34) RASH oxycodone Adverse Reaction (Severe, Verified 05/22/23 11:34) Itching Medication List - Last Reconciled 05/22/23 by BARRY Guzman Advair HFA 230-21 mcg/actuation (fluticasone propion-salmeterol) 2 puffs inhalation Q12H 30 days NS albuterol sulfate 90 mcg/actuation (Proair Digihaler) 2 inhalations inhalation Q4-6H PRN 30 days albuterol sulfate 2.5 mg (3 mL) inhalation Q6H PRN 30 days atorvastatin 20 mg PO DAILY 90 days cholecalciferol (vitamin D3) (Vitamin D3) 50 mcg PO DAILY cyanocobalamin (vitamin B-12) (Vitamin B-12) 1,000 mcg PO DAILY escitalopram oxalate 10 mg PO DAILY 90 days ferrous sulfate 324 mg PO DAILY 90 days furosemide 20 mg PO DAILY 90 days metoprolol succinate ER 25 mg PO DAILY 90 days miscellaneous medical supply GRAB BAR 18 Fluidigmcellaneous medical supply toilet safety frame nebulizers (AeroEclipse II Nebulizer) As directed ondansetron 8 mg PO Q8H PRN 30 days oxycodone-acetaminophen 10-325 mg 1 tab PO Q6H PRN 30 days piperacillin-tazobactam 3.375 gram 3.375 grams IV Q6H walker (Ultra-Light Rollator misc) As directed Fall Risk Assessment Fall risk assessment: No Falls in past year Date Fall Risk Assessed: 05/22/23 HPI V G0439 HPI Details Patient is a 67-year-old female who presents today for subsequent wellness visit.? Patient of Dr. Hill. Today we discussed patient's need for tetanus vaccine, patient would like to hold off.? Also patient is followed by cancer center in [place] due to history of left breast lumpectomy and patient reports last mammogram 09/2022, will request records. Bone density screen 05/2022 which showed osteopenia. Augustine of care was reviewed with the patient and she was provided with a screening schedule. Healthcare proxy and MOLST forms on file. ? Couple weeks ago patient did have ERCP due to choledocholithiasis, patient has four abdominal incisions, 2 incisions are red and patient reports clear discharge from one incision, last discharge was this morning. No fever or chills. Patient is accompanied by her family member. [facility] Medical History Abdominal pain Arthritis Asthma B12 deficiency Back pain Breast cancer Chronic pain Common bile duct dilation Constipation Depression Dizziness Dyslipidemia Elevated TSH Foot pain, bilateral Gallstones Hair loss Hair loss History of left bundle branch block (LBBB) History of pernicious anemia History of trigger finger History of vitamin D deficiency HTN (hypertension) Lumbar degenerative disc disease Mild aortic stenosis Mild recurrent major depression Moderate persistent asthma Morbid obesity Morbid obesity Murmur On beta mel at home Right hip pain Sleep apnea Tinnitus Surgical History History of cardiac cath History of dilation and curettage History of lymph node dissection of left axilla History of total left knee replacement (TKR) History of total right knee replacement (TKR) Hx of bilateral cataract extraction Hx of colonoscopy Hx of esophagogastroduodenoscopy S/P lumpectomy, left breast Family History Father Prostate cancer Hypertension Mother Skin cancer Dementia Diabetes Daughter Lupus Maternal Grandmother Diabetes Hypertension Maternal Grandfather No problems noted. Paternal Grandmother No problems noted. Paternal Grandfather Cancer Brother Prostate cancer Social History Household Members: Spouse and Family Household Members Other:: Graddaughter Housing: House Do you presently have visiting nurse or other home services: Yes Alcohol intake: never Patient Tobacco Use Status: Never used Tobacco e-Cigarette/Vaping Use: Never Used Second Hand Smoke Exposure: No Substance Use Type: Marijuana Advance Directives Date on File: 08/05/22 service: No Current occupational status: disabled Cognitive needs: Yes Hearing needs: No Vision needs: Yes Questionnaire Medicare Wellness Checkup What [age] What gender do you identify with?: female During the past 4 weeks, how much have you been bothered by emotional problems such as feeling anxious, depressed, irritable, sad or downhearted, and blue?: quite a bit During the past 4 weeks, has your physical & emotional health limited your social activities with family, friends, neighbors, or groups?: quite a bit During the past 4 weeks, how much bodily pain have you generally had?: moderate pain During the past 4 weeks, was someone available to help you if you needed & wanted help?: yes, quite a bit During the past 4 weeks, what was the hardest physical activity you could do for at least 2 minutes?: moderate Can you get to places out of walking distance without help? (For eg., can you travel alone on buses, taxis or drive your car?): No Can you go shopping for groceries or clothes without someone's help?: No Can you prepare your own meals?: Yes Can you do your housework without help?: No Because of any health problems, do you need the help of another person with your personal care needs such as eating, bathing, dressing or getting around the house?: Yes Can you handle your own money without help?: Yes During the past 4 weeks, how would you rate your health in general?: poor During the past 4 weeks how have things been going for you?: pretty bad Are you having difficulties driving your car?: not applicable, I don't use a car Do you always fasten your seat belt when you are in a car?: yes, usually During past 4 weeks, have you been bothered by the following: never: Teeth or denture problems? and Problems using the telephone?, seldom: Sexual problems?, sometimes: Falling or dizzy when standing up and always: Trouble eating well? and Tiredness or fatigue? Have you fallen 2 or more times in the past year?: No Are you afraid of falling?: Yes Are you a smoker?: no During the past 4 weeks, how many drinks of wine, beer, or other alcoholic beverages did you have?: no alcohol at all Do you exercise for about 20 minutes 3 or more times a week?: no, I usually do not exercise this much Have you been given information to help with the following?: yes: Keeping track of your medications? and no: Hazards in your house that might hurt you? How often do you have trouble taking medicines the way you have been told to take them?: I always take medicine as prescribed How confident are you that you can control & manage most of your health problems?: not very confident What is your race?: or origin or descent Mini Mental State Exam (MMSE) Orientation What is the (year) (season) (date) (day) (month)?: year, season, date, day and month Score Score: 5 Activity of Daily Living Bathing - sponge bath, tub bath or shower: receives help in bathing more than one body part (or not bathed) Dressing - getting clothes from closets & drawers, including inner/outer garments & fasteners.: receives help getting clothes or getting dressed, or stays undressed Toileting - going to the 'toilet room' for urine/bowel elimination & cleaning self/arranging clothes: receives help going to toilet room, cleaning self or arranging clothes Transfer: moves in & out of bed or chair with help Continence: has occasional 'accidents' Feeding: feeds self without help Total Score: 2 Information obtained from: patient Using telephone: needs assistance Traveling: dependent Shopping: dependent Preparing meals: dependent Housework: dependent Taking medicine: needs assistance Managing money: needs assistance PHQ-9 Over the last 2 weeks, how often have you been bothered by any of the following problems? 1. Little interest or pleasure in doing things: nearly every day 2. Feeling down, depressed, or hopeless: nearly every day 3. Trouble falling or staying asleep, or sleeping too much: more than half the days 4. Feeling tired or having little energy: nearly every day 5. Poor appetite or overeating: nearly every day 6. Feeling bad about yourself - or that you are a failure or have let yourself or your family down: more than half the days 7. Trouble concentrating on things, such as reading the newspaper or watching television: nearly every day 8. Moving or speaking so slowly that other people could have noticed. Or the opposite - being so fidgety or restless that you have been moving around a lot more than usual: nearly every day 9. Thoughts that you would be better off or of hurting yourself in some way: several days Total score: 23 Depression Screening Interpretation: Positive Depression Screening Follow-up: In treatment 91867 - PHQ-9 Billing: Yes Source: Developed by Drs. Bin Islas, Markie Stark and colleagues, with an educational lo from [employer]. RYANNE-7 AMB Questionnaire RYANNE-7 Date RYANNE - 7 assessed: 12/16/22 Feeling nervous, anxious, or on edge: 3 = Nearly every day Not being able to stop or control worryin = Nearly every day Worrying too much about different things: 3 = Nearly every day Trouble relaxin = More than half the days Being so restless that it is hard to sit still: 1 = Several days Becoming easily annoyed or irritable: 3 = Nearly every day Feeling afraid as if something awful might happen: 3 = Nearly every day Total RYANNE-7 score (0-4 normal; 5-9 mild; 10-14 moderate; 15-21 severe): 18 Source: Developed by Drs. Bin Islas, Stephanie Lowery, Markie Escobedo and colleagues, with an educational lo from [employer]. RYANNE-7 Assessment Billing RYANNE-7 Assessment Tool: RYANNE-7 Assessment 94414 Thrive Questionnaire Date Thrive assessed: 04/25/23 Review of Systems Skin/Breast Reports as per [facility] Physical Exam Vital Signs: Last Vital Signs Pulse 64 05/22/23 11:14 BP 118/82 05/22/23 11:14 Pulse Ox 95 05/22/23 11:14 Oxygen Delivery Method Room Air 05/22/23 11:14 BMI result Body Mass Index 40.8 Const General: cooperative and no acute distress Orientation/consciousness: patient oriented x3 HEENT Other: Whisper test: pass Eyes General: appearance normal, both eyes and all related structures Resp Effort & Inspection: normal respiratory effort Auscultation: clear to auscultation bilaterally Cardio Rate: regular rate Rhythm: regular rhythm Heart sounds: S1 normal heart sound present and S2 normal heart sound present GI Other: Abdomen with four surgical incisions, two incisions with moderate erythema, well approximated, no discharge noted Auscultation: normal bowel sounds Neuro Other: Balance: Normal Get up and walk: unable to Romberg: negative Tandem gait: unable to General: patient oriented x3 Assessment & Plan Assessment & Plan (1) Moderate persistent asthma: Code(s): J45.40 - Moderate persistent asthma, uncomplicated Plan: Continue current treatment Continue to follow-up with pulmonology Dr. Pop (2) Morbid obesity: Code(s): E66.01 - Morbid (severe) obesity due to excess calories Plan: Healthy food choices and exercise as tolerated (3) Mild recurrent major depression: Code(s): F33.0 - Major depressive disorder, recurrent, mild Plan: Continue to follow-up with therapist and psychiatrist at [facility] Continue current treatment (4) Dyslipidemia: Code(s): E78.5 - Hyperlipidemia, unspecified Plan: Atorvastatin 20 mg daily Low-cholesterol diet (5) HTN (hypertension): Code(s): I10 - Essential (primary) hypertension Plan: Continue current treatment Low-sodium diet and weight loss (6) Chronic pain: Code(s): G89.29 - Other chronic pain Plan: Patient reports chronic pain in her lower back and bilateral knees and she is on Percocet as needed with a relief (7) Back pain: Code(s): M54.9 - Dorsalgia, unspecified Plan: Same as above (8) Adult general medical exam: Code(s): Z00.00 - Encounter for general adult medical examination without abnormal findings (9) Wound drainage: Code(s): L24.A9 - Irritant contact dermatitis due friction or contact with other specified body fluids Plan: Start cephalexin b.i.d. for 7 days Follow-up if no improvement after finishing antibiotic Follow-up with PCP in 1 month or sooner as needed (10) LBBB (left bundle branch block): Code(s): I44.7 - Left bundle-branch block, unspecified Plan: Continue to follow-up with [facility] Medications: New cephalexin 500 mg PO Q12H 7 days 14 tabs 0RF L24.A9 - Irritant contact dermatitis due friction or contact with other specified body fluids Quality Reporting (2019) Fall Risk Screening ([facility] 139) Last assessed Fall Risk: 05/22/23 Fall risk assessment: No Falls in past year Depression/Bipolar (159/160/161/177) PHQ-9: Total score: 23 Coding Level of Care Code Medicare Subsequent (G0439) Est Pt Level 3 (45993) Diagnoses Moderate persistent asthma J45.40 Morbid obesity E66.01 Mild recurrent major depression F33.0 Dyslipidemia E78.5 HTN (hypertension) I10 Chronic pain G89.29 Back pain M54.9 Adult general medical exam Z00.00 Wound drainage L24.A9 LBBB (left bundle branch block) I44.7 CPT Codes Advance Care Planning - Advance Care Planning discussion: On file, no changes ([id number]) Advance Care Planning - Time spent: 1-15 minutes, on File ([id number]) Additional Codes RYANNE-7 Assessment Billing - RYANNE-7 Assessment Tool: RYANNE-7 Assessment 02507 ([id number]) Advance Care Planning Advance Care Planning discussion: On file, no changes Date of discussion: 05/22/23 Who was present: pt and manpower development manager Forms completed: None Time spent: 1-15 minutes, on File Actual minutes spent: 1 Did not discuss due to Cultural/Spiritual beliefs: No
== END 2023-05-22 12:20 | disposition home or self-care (01) ==
PROVIDERS: Visit Provider Nurse Practitioner Family
DX: Z00.00 Encounter for general adult medical examination without abnormal findings (principal); J45.40 Moderate persistent asthma, uncomplicated; E66.01 Morbid (severe) obesity due to excess calories; L24.A9 Irritant contact dermatitis due friction or contact with other specified body fluids; F33.0 Major depressive disorder, recurrent, mild; E78.5 Hyperlipidemia, unspecified; I10 Essential (primary) hypertension; G89.29 Other chronic pain; M54.9 Dorsalgia, unspecified; Z68.41 Body mass index [BMI] 40.0-44.9, adult; I44.7 Left bundle-branch block, unspecified
CPT/HCPCS: 1123F; 99213; G0439

== ENCOUNTER 2023-05-22 19:52 | Inpatient (IN) | payer OTHER, SELFPAY ==
--- NOTE | ~2023-05-22 | CT_ITS ---
EXAMINATION: CT ABDOMEN AND PELVIS WITHOUT CONTRAST CLINICAL INFORMATION: Mid abdominal pain. COMPARISON: MRCP 04/25/2023. CT abdomen/pelvis 08/23/2022. TECHNIQUE: Multidetector volumetric imaging was performed from the superior aspect of the liver through the pubic symphysis. Sagittal and coronal reformatted images were obtained on the technologist's workstation. This CT examination was performed using dose optimization techniques as appropriate, variously including the following: *Automated exposure control *Adjustment of mA and/or kV according to patient size (this includes techniques or standardized protocols for targeted exams where dose is matched to indication/reason for exam; i.e. extremities or head) *Use of iterative reconstruction technique DLP: 706 mGy-cm FINDINGS: The lack of intravenous contrast limits evaluation of the solid visceral organs including the liver, spleen, pancreas, and kidneys. LUNG BASES: No focal consolidation or pleural effusion. Partially imaged trace pericardial fluid posterior to the left ventricle. LIVER, GALLBLADDER, AND BILIARY TREE: The liver is enlarged and demonstrates decreased attenuation suggesting hepatic steatosis. There is a new indeterminate ill-defined low-density observation in the inferior right hepatic lobe adjacent to the antropyloric stomach/duodenal bulb (coronal image 27, series 5). There is pneumobilia on the left hepatic lobe which is nonspecific in the setting of postcholecystectomy and could be related with sphincterotomy. The common bile duct is not well delineated, though no significant biliary ductal dilatation is appreciated. PANCREAS: Limited noncontrast examination. There are inflammatory changes centered around the proximal duodenum and pancreas. No main ductal dilatation. SPLEEN: Unremarkable. ADRENAL GLANDS: Unremarkable. KIDNEYS AND URETERS: Simple cyst in the upper left kidney, for which no imaging follow up is recommended. No nephrolithiasis or hydronephrosis. No perinephric fat stranding. BLADDER: Unremarkable. GASTROINTESTINAL TRACT: Gastric distention is likely related with reactive gastroparesis in the setting of adjacent inflammatory changes. As above, there are periduodenal inflammatory changes. A duodenal diverticulum is redemonstrated. The small bowel is nondilated. No indirect findings to suspect acute appendicitis. Redemonstration of submucosal fatty deposition in the right hemicolon. No significant pericolonic fat stranding or free fluid. No evidence of bowel obstruction. ABDOMINAL WALL: No significant hernia is appreciated. LYMPH NODES: Periportal and peripancreatic lymphadenopathy. VASCULAR: Limited noncontrast examination. Normal caliber of the abdominal aorta. Scattered atherosclerotic disease. PELVIC VISCERA: Unremarkable. OSSEOUS STRUCTURES: No acute or aggressive appearing osseous findings. Degenerative changes of the spine. CT/CT abdomen pelvis wo IV con IMPRESSION: Inflammatory changes centered around the pancreas in favor to represent acute pancreatitis; the presence of complications such as pancreatic necrosis are suboptimally assessed in the absence of IV contrast. Antropyloric and proximal duodenal wall thickening with surrounding inflammatory changes are most consistent with reactive changes in the setting of acute pancreatitis, although peptic ulcer disease/duodenitis/duodenal diverticulitis cannot be entirely excluded in the appropriate clinical context. There is a new ill-defined low density observation in the inferomedial right hepatic lobe adjacent to the postcholecystectomy bed/proximal duodenum which is nonspecific could represent reactive changes in the liver parenchyma versus perhaps early abscess formation. Further evaluation with an abdominal MRI with and without IV contrast is recommended. Periportal and peripancreatic lymphadenopathy is likely reactive, attention on follow-up in future examinations. Hepatomegaly and hepatic steatosis. Submucosal fatty deposition in the colon could be related with patient body habitus versus an underlying chronic inflammatory bowel disease. No evidence of pericolonic fat stranding or free fluid. This critical result was discussed with Karl Gomez MD at 05/22/2023 10:12 PM and it was ascertained that the content and urgency of the report was understood at the time of direct communication.
--- NOTE | ~2023-05-22 | MR_ITS ---
EXAMINATION: MR ABDOMEN WITHOUT AND WITH CONTRAST CLINICAL INFORMATION: Further evaluation of liver abnormality noted on recent CT. COMPARISON: CT abdomen/pelvis 05/22/2023. TECHNIQUE: MR abdomen was performed without and with use of 10 mL intravenous Gadavist gadolinium contrast. Postcontrast images are performed in multiphase dynamic sequences. Imaging was performed in 3 planes. FINDINGS: LUNG BASES: The visualized lung bases are unremarkable. LIVER, GALLBLADDER, AND BILIARY TREE: The liver is enlarged measuring 18 cm craniocaudally and demonstrates signal loss in the out of phase dual-echo images suggesting the presence of hepatic steatosis. Otherwise, the liver is normal in shape. Corresponding to the abnormality in question there is a 2.7 x 2.4 cm collection in the inferior right hepatic lobe demonstrating internal intermediate T2 signal and a thick rim of enhancement with surrounding edematous changes, favoring to represent an abscess. This is new compared to prior MRI from 04/25/2023. The antropyloric stomach/duodenal bulb immediately adjacent to this collection demonstrates hyperenhancement and thickened allen. Cholecystectomy. No biliary ductal dilatation. Again noted mild pneumobilia. PANCREAS: Redemonstration of peripancreatic free fluid and fat stranding which is more pronounced adjacent to the proximal pancreas. No main ductal dilatation. SPLEEN: Normal. ADRENAL GLANDS: Normal. KIDNEYS AND URETERS: Exophytic 2.2 cm simple cyst from the upper left kidney, for which no imaging followup is recommended. GASTROINTESTINAL TRACT: Redemonstration of periduodenal inflammatory changes. Duodenal diverticuli. No evidence of bowel obstruction. ABDOMINAL WALL: No significant hernia is appreciated. LYMPH NODES: Redemonstration of periportal and peripancreatic lymphadenopathy. VASCULAR: Normal caliber abdominal aorta. OSSEOUS STRUCTURES: No acute or aggressive-appearing osseous abnormalities. MR/MR abdomen wo/w con IMPRESSION: 1. There is a 2.7 cm rim enhancing collection in the inferomedial right hepatic lobe new compared to MRI from 04/25/2023, favoring to represent an abscess. 2. Again noted peripancreatic and periduodenal inflammatory changes, favoring to represent acute edematous pancreatitis with reactive duodenal changes, less likely peptic ulcer disease/duodenitis depending on the clinical context. 3. The antropyloric stomach/duodenal bulb are wall thickened and hyperenhancing, in close proximity to the above-described liver collection, favoring to represent as well reactive changes. Correlation with an upper endoscopy could be obtained as clinically indicated. 4. Hepatomegaly and hepatic steatosis.
--- NOTE | ~2023-05-22 | XR_ITS ---
EXAMINATION: XR CHEST CLINICAL INFORMATION: Epigastric pain COMPARISON: None available. TECHNIQUE: Frontal view of the chest was obtained. FINDINGS: The lungs are well-expanded and clear of acute process. Heart size is enlarged. The pulmonary vascularity is normal. No gross bony abnormality seen. XR/XR chest 1V IMPRESSION: Mild cardiomegaly otherwise unremarkable chest exam
[2023-05-22 20:02] VITALS: BP 132/78; BP 145/69; PULSE 80; PULSE 84; RESP 20; TEMP 38.3; O2SAT 95; BMI 40.8
[2023-05-22] MEDS: Acetaminophen 325 MG TABLET 650 MG PO (20:38)
[2023-05-22 20:41] VITALS: BP 126/63; PULSE 87; RESP 18; TEMP 37.3
--- NOTE | 2023-05-22 21:05 | PC.NURSE ---
Patient is a difficult stick, 3 attempts were made to draw blood, place IV line, no success. Dr. Barajas made aware.
--- NOTE | 2023-05-22 21:21 | ED_ITS ---
HPI - Abdominal Pain General Chief Complaint: Abdominal Pain Stated Complaint: ABD PAIN HX OF GALLSTONES Time Seen by Provider: 05/22/23 21:10 Source: patient Mode of arrival: ambulatory Limitations: no limitations History of Present Illness HPI narrative: 67-year-old female came in for evaluation of mid abdominal pain for the past 2 days, s/p cholecystectomy at [facility] 3 weeks ago. Pain was described as dull aching pain in mid abdomen with no radiation severe 7 out 10, it was associated with nausea and vomiting but no fever chills, had a normal bowel movement today and passing gas. No dysuria, no frequency urination, no hematuria. Past surgical history is only significant for cholecystectomy. Related Data Previous Rx's Medication Instructions Recorded miscellaneous medical supply #1 ea 11/08/20 miscellaneous medical supply #1 ea 11/08/20 walker (Ultra-Light Rollator misc) #1 ea 11/08/20 albuterol sulfate 90 mcg/actuation 2 inh inhalation Q4-6H PRN 10/05/21 breath activated powder shortness of breath or wheezing 30 inhaler,sensor (Proair Digihaler) days #1 ea albuterol sulfate 2.5 mg/3 mL 2.5 mg (3 mL) inhalation Q6H PRN 09/04/22 (0.083 %) solution for nebulization bronchospasm 30 days #75 mL nebulizers (AeroEclipse II #1 ea 09/04/22 Nebulizer) Advair HFA 230 mcg-21 2 puff inhalation Q12H 30 days #1 09/27/22 mcg/actuation aerosol inhaler ea (fluticasone propion-salmeterol) metoprolol succinate 25 mg 25 mg PO DAILY 90 days #90 tabs 11/03/22 tablet,extended release 24 hr cyanocobalamin (vitamin B-12) 1,000 mcg PO DAILY #90 tabs 12/07/22 1,000 mcg tablet (Vitamin B-12) furosemide 20 mg tablet 20 mg PO DAILY 90 days #90 tabs 01/22/23 cholecalciferol (vitamin D3) 50 50 mcg PO DAILY #30 tabs 02/16/23 mcg (2,000 unit) tablet (Vitamin D3) atorvastatin 20 mg tablet 20 mg PO DAILY 90 days #90 tabs 04/06/23 ferrous sulfate 324 mg (65 mg 324 mg PO DAILY 90 days #90 tabs 04/06/23 iron) tablet,delayed release oxycodone-acetaminophen 10 mg-325 1 tab PO Q6H PRN pain 30 days #120 04/14/23 mg tablet tabs escitalopram oxalate 10 mg tablet 10 mg PO DAILY 90 days #90 tabs 05/07/23 ondansetron 8 mg disintegrating 8 mg PO Q8H PRN nausea and 05/07/23 tablet vomiting 30 days #90 tabs cephalexin 500 mg tablet 500 mg PO Q12H 7 days #14 tabs 05/22/23 Allergies Allergy/AdvReac Type Severity Reaction Status Date / Time latex [LATEX] Allergy Intermediate RASH Verified 05/22/23 11:34 oxycodone AdvReac Severe Itching Verified 05/22/23 11:34 Review of Systems Review of Systems All other systems are reviewed and are negative Constitutional: Reports as per HPI and Reports no additional constitutional complaints Eyes: Reports as per HPI and Reports no additional eye complaints Reports system reviewed and no additional complaints, except as documented Cardiovascular: Reports as per HPI and Reports no additional cardiovascular complaints Respiratory: Reports as per HPI and Reports no additional respiratory complaints Gastrointestinal: Reports as per HPI and Reports no additional gastrointestinal complaints Genitourinary: Reports no additional female genitourinary complaints Musculoskeletal: Reports no additional musculoskeletal complaints Skin/Breast: Reports system reviewed and no additional complaints, except as docu Psychiatric: Reports no additional psychiatric complaints Endocrine: Reports no additional endocrine complaints Hematologic/Lymphatic: Reports no additional hematologic/lymphatic complaints Allergic/Immunologic: Reports no additional allergic/immunologic complaints Reports system reviewed and no additional complaints, except as documented and Reports Abnormal speech present [facility] Past Medical History Medical History Abdominal pain Arthritis Asthma B12 deficiency Back pain Breast cancer Chronic pain Common bile duct dilation Constipation Depression Dizziness Dyslipidemia Elevated TSH Foot pain, bilateral Gallstones Hair loss Hair loss History of left bundle branch block (LBBB) History of pernicious anemia History of trigger finger History of vitamin D deficiency HTN (hypertension) Lumbar degenerative disc disease Mild aortic stenosis Mild recurrent major depression Moderate persistent asthma Morbid obesity Morbid obesity Murmur On beta eml at home Right hip pain Sleep apnea Tinnitus Surgical History History of cardiac cath History of dilation and curettage History of lymph node dissection of left axilla History of total left knee replacement (TKR) History of total right knee replacement (TKR) Hx of bilateral cataract extraction Hx of colonoscopy Hx of esophagogastroduodenoscopy S/P lumpectomy, left breast Family History Family History Father Prostate cancer Hypertension Mother Skin cancer Dementia Diabetes Daughter Lupus Maternal Grandmother Diabetes Hypertension Maternal Grandfather No problems noted. Paternal Grandmother No problems noted. Paternal Grandfather Cancer Brother Prostate cancer Social History Social History Household Members: Spouse and Family Household Members Other:: Graddaughter Housing: House Do you presently have visiting nurse or other home services: Yes Alcohol intake: never Patient Tobacco Use Status: Never used Tobacco Smoked in Last 30 Days: No e-Cigarette/Vaping Use: Never Used Second Hand Smoke Exposure: No Use of substances other than those prescribed or required for medical reasons: No Substance Use Type: Marijuana Advance Directives: Yes Advance Directives on File: Yes Advance Directives Date on File: 08/05/22 service: No Current occupational status: disabled Cognitive needs: Yes Hearing needs: No Vision needs: Yes Physical Exam ED Vital Signs: Vital Signs - 24 hr 05/22/23 20:02 05/22/23 20:41 Temperature 101 F H 99.1 F Pulse Rate 84 87 Respiratory Rate 20 18 Blood Pressure 145/69 H 126/63 Pulse Oximetry 95 Oxygen Delivery Method Room Air BMI result Body Mass Index 40.8 vital signs have been reviewed as appeared to be correct. Blood pressure normal. Heart rate normal. Respiration rate normal. Temperature normal. Oxygen saturation normal. Appearance: Alert. Oriented X3. No acute distress. Head: Normal external exam. Normocephalic. Atraumatic. No Vallejo signs noted. No raccoon eyes noted Eyes: PERRLA. EOMI. Conjunctiva and sclera normal. Eyelids normal. ENT: TM's Normal. Pharynx normal. Uvula midline. Moist mucous membranes. No trismus noted. No drooling noted. No muffled voice noted. Neck: Normal inspection. Neck supple. FROM. No adenopathy. Thyroid Normal. No meningeal signs. No neck mass noted. CVS: Normal heart rate and rhythm. Heart sound normal. No murmurs noted. Pulses normal throughout. Respiratory: No respiratory distress. Painless inspiration. Breath sounds normal. No wheezes/rales/rhonchi noted. Chest nontender. No accessory muscle usage noted or decreased air movement noted. Abdomen: Soft , obese, mid abdominal tenderness, no guarding, no rebound tenderness. Bowel sounds normal in all 4 quadrants. No distention noted. No organomegaly noted. No visible injury noted. Back: No CVA tenderness. Full range of motion noted. Skin: Skin warm and dry. Normal skin color. Normal skin turgor. No rashes/lesions/lacerations noted. Extremities: No lower extremity edema. Extremities exhibit normal range of motion. Extremities nontender. Neuro: Oriented X 3. Cranial nerve exam: II-XII are grossly intact No motor deficit. No sensory deficit. Reflexes normal. Course Reevaluation(s) Reevaluation #1: this is a 67-year-old female s/p cholecystectomy, came in with upper abdominal pain labs and CT revealing acute pancreatitis, CT is also concern of hypodense lesion on the liver concern of hepatic abscess. patient will be covered with Zosyn. Patient meets criteria for sirs, no septic shock. Hypokalemia, will replete potassium. Time: 23:20 Medical Decision Making Differential Diagnosis Differential Diagnoses: The differential diagnosis associated with the presentation includes ( pancreatitis, liver abscess, colitis, septic shock, electrolyte abnormality, severe anemia.) Admission/Observation Consideration of admission/observation: Escalation of care including admission/observation considered Consult Healthcare Provider Management of the patient was discussed with: Hospitalist ( Dr. Arreguin) Lab Data MDM Lab Attestation statement: I reviewed the patient's lab results. 05/22/23 21:48 05/22/23 21:48 Labs: Lab Results 05/22/23 05/22/23 05/22/23 Range/Units 21:48 21:48 21:48 WBC 12.6 H (4.8-10.8) X10*3/uL RBC 4.92 (4.20-5.50) X10*6/uL Hgb 12.5 (12.0-16.0) g/dl Hct 39.1 (37.0-47.0) % MCV 79.5 L (80.0-98.0) fL MCH 25.4 L (27.0-33.0) pg MCHC 32.0 (31.0-35.0) g/dl RDW 14.7 (11.0-16.0) % Plt Count 239 (160-400) X10*3/uL MPV 9.8 (9.4-12.3) fL Immature Gran % (Auto) 0.5 H (0.0-0.4) % Neut % (Auto) 85.1 H (45-73) % Lymph % (Auto) 8.8 L (20-40) % Hardin % (Auto) 5.2 (2-11) % Eos % (Auto) 0.1 (0-4) % Baso % (Auto) 0.3 (0-2) % Lymph # (Auto) 1.1 L (1.2-4.9) X10*3/uL Hardin # (Auto) 0.7 (0.1-1.2) X10*3/uL Eos # (Auto) 0.0 (0.0-0.4) X10*3/uL Baso # (Auto) 0.0 (0.0-0.2) X10*3/uL Abs Immat Gran (auto) 0.06 H (0.00-0.03) X10*3/uL Absolute Neuts (auto) 10.7 H (2.0-8.3) x10*3/uL Absolute Nucleated RBC 0.000 (0.0-0.012) X10*3/uL Nucleated RBC % (auto) 0.0 (0.0-0.2) /100WBC Sodium 145 (135-145) mmol/L Potassium 2.9 L (3.3-5.1) mmol/L Chloride 104 (96-108) mmol/L Carbon Dioxide 25 (22-29) mmol/L Anion Gap 19 (12-20) BUN 13 (9-16) mg/dL Creatinine 0.96 (0.5-1.4) mg/dL Estim Creat Clear Calc 54.6 Estimated GFR 58 Random Glucose 168 H (60-115) mg/dL Lactic Acid 2.3 H* (0.5-2.0) mmol/L Calcium 10.0 (8.4-10.2) mg/dL Total Bilirubin 0.7 (0.0-1.0) mg/dL Direct Bilirubin 0.3 (0.0-0.5) mg/dL AST 20 (5-31) U/L ALT 21 (0-31) U/L Alkaline Phosphatase 116 (39-117) U/L Total Protein 8.3 H (6.5-8.0) g/dL Albumin 3.9 (3.5-5.0) g/dL Lipase 1016 H (8-78) U/L Independent Interpretation I performed an independent interpretation of an: Plain X-Ray ( chest: No acute intrathoracic pathology.) and CT Scan ( abdomen and pelvis: Acute pancreatitis) Radiology Impression Discussion of test interpretation with radiology: I have reviewed the radiologist's reading. (Inflammatory changes centered around the pancreas in favor to represent acute pancreatitis; the presence of complications such as pancreatic necrosis are suboptimally assessed in the absence of IV contrast. Antropyloric and proximal duodenal wall thickening with surrounding inflammatory changes ar) Medications Administered Discontinued Medications Generic Name Dose Route Start Last Admin Trade Name Freq PRN Reason Stop Dose Admin Acetaminophen 650 mg 05/22/23 20:20 05/22/23 20:38 Acetaminophen 325 Mg Tablet PO 05/22/23 20:21 650 mg ONCE ONE Administration Al Hydroxide/Mg Hydroxide 30 ml 05/22/23 21:18 05/22/23 21:56 Magnesium Hydrox/Alum Hydrox 30 Ml Oral.Susp PO 05/22/23 21:19 30 ml ONCE ONE Administration Famotidine 20 mg 05/22/23 21:18 05/22/23 21:56 Famotidine/Pf 20 Mg/2 Ml Vial IVPUSH 05/22/23 21:19 20 mg ONCE ONE Administration Sodium Chloride 1,000 mls @ 999 mls/hr 05/22/23 21:20 05/22/23 21:57 Ns IV 05/22/23 22:20 999 mls/hr .Q1H1M ONE Administration Potassium Chloride 10 meq in 100 mls @ 100 mls/hr 05/22/23 22:18 05/22/23 22:32 Potassium Chloride/H20 IV 05/22/23 23:17 100 mls/hr ONCE ONE Administration Ondansetron HCl 4 mg 05/22/23 21:18 05/22/23 21:56 Ondansetron Hcl 4 Mg/2 Ml Vial IVPUSH 05/22/23 21:19 4 mg ONCE ONE Administration Potassium Chloride 10 meq 05/22/23 22:18 05/22/23 22:32 Potassium Chloride Er 10 Meq Tablet.Er PO 05/22/23 22:19 10 meq ONCE ONE Administration Discharge Plan Discharge Clinical Impression: Acute pancreatitis, Liver mass, Acute hypokalemia Patient Disposition: Admitted As Inpatient
[2023-05-22] MEDS: Famotidine/PF 20 MG/2 ML VIAL IVPUSH (21:56)
[2023-05-22] MEDS: ondansetron HCL 4 MG/2 ML VIAL IVPUSH (21:56)
[2023-05-22] MEDS: Magnesium Hydrox/Alum Hydrox 30 ML ORAL.SUSP PO (21:56)
[2023-05-22] MEDS: 0.9 % Sodium Chloride 1,000 ML 999 ML IV (21:57)
[2023-05-22 22:13] LABS: Alanine Aminotransferase 21 U/L (0-31); Albumin Level 3.9 g/dL (3.5-5.0); Alkaline Phosphatase 116 U/L (39-117); Anion Gap 19 (12-20); Aspartate Amino Transferase 20 U/L (5-31); Bilirubin Direct 0.3 mg/dL (0.0-0.5); Bilirubin Total 0.7 mg/dL (0.0-1.0); Blood Urea Nitrogen 13 mg/dL (9-16); Carbon Dioxide 25 mmol/L (22-29); Chloride 104 mmol/L (96-108); Creatinine Clr Calc Pharmacy 54.6; Estimated Glomerular Filt Rate 58; Glucose Random 168 mg/dL (60-115); Potassium 2.9 mmol/L (3.3-5.1); Sodium 145 mmol/L (135-145); Total Protein 8.3 g/dL (6.5-8.0)
[2023-05-22 22:17] LABS: MANUAL DIFF FLAG NO
[2023-05-22 22:18] LABS: Basophils Percent Auto 0.3 % (0-2); Eosinophils Percent Auto 0.1 % (0-4); Hematocrit 39.1 % (37.0-47.0); Hemoglobin 12.5 g/dl (12.0-16.0); Imm Gran Abs Auto 0.06 X10*3/uL (0.00-0.03); Imm Gran Pct Auto 0.5 % (0.0-0.4); Lymphocytes Absolute Auto 1.1 X10*3/uL (1.2-4.9); Lymphocytes Percent Auto 8.8 % (20-40); Mean Corpuscular Hemoglobin 25.4 pg (27.0-33.0); Mean Corpuscular Volume 79.5 fL (80.0-98.0); Mean Platelet Volume 9.8 fL (9.4-12.3); Monocytes Absolute Auto 0.7 X10*3/uL (0.1-1.2); Monocytes Percent Auto 5.2 % (2-11); Neutrophils Absolute Auto 10.7 x10*3/uL (2.0-8.3); Neutrophils Percent Auto 85.1 % (45-73); Platelet Count 239 X10*3/uL (160-400); Red Blood Count 4.92 X10*6/uL (4.20-5.50); Red Cell Distribution Width 14.7 % (11.0-16.0); White Blood Count 12.6 X10*3/uL (4.8-10.8)
[2023-05-22 22:22] LABS: Lactic Acid 2.3 mmol/L (0.5-2.0)
[2023-05-22] MEDS: Potassium Chloride ER 10 MEQ TABLET.ER PO (22:32)
[2023-05-22] MEDS: Potassium Chloride/H20 10 MEQ/100 ML PIGGYBACK 100 MEQ IV (22:32)
[2023-05-22 22:37] LABS: Lipase 1016 U/L (8-78)
--- NOTE | 2023-05-22 23:21 | PM.IMHP ---
History of Present Illness Date of Service: 05/22/23 Chief Complaint: Abdominal Pain This is a 67-year-old female with pertinent history of mood disorder, essential hypertension, asthma, mixed hyperlipidemia presents to the emergency department for evaluation of abdominal pain. Patient states she started having epigastric abdominal pain on the day of presentation, radiating to the back, constant. It was without any relieving factors. Worsened with movement or inspiration. Also had associated nausea and vomiting. Patient denies significant alcohol use or similar complaints in the past. Does endorse fevers and chills. She denies chest discomfort, palpitations, shortness of breath, changes in urinary or bowel habits. In the emergency department, lipase found to be elevated and imaging concerning for acute pancreatitis. Review of Systems Constitutional: Constitutional: Reports chills and Reports fever(s) Cardiovascular: Cardiovascular: Reports no additional cardiovascular complaints Respiratory: Respiratory: Reports no additional respiratory complaints Gastrointestinal: Gastrointestinal: Reports abdominal pain, Reports nausea and Reports vomiting Genitourinary: Genitourinary: Reports no additional female genitourinary complaints [facility] Medical History Abdominal pain Arthritis Asthma B12 deficiency Back pain Breast cancer Chronic pain Common bile duct dilation Constipation Depression Dizziness Dyslipidemia Elevated TSH Foot pain, bilateral Gallstones Hair loss Hair loss History of left bundle branch block (LBBB) History of pernicious anemia History of trigger finger History of vitamin D deficiency HTN (hypertension) Lumbar degenerative disc disease Mild aortic stenosis Mild recurrent major depression Moderate persistent asthma Morbid obesity Morbid obesity Murmur On beta mel at home Right hip pain Sleep apnea Tinnitus Family History Father Prostate cancer Hypertension Mother Skin cancer Dementia Diabetes Daughter Lupus Maternal Grandmother Diabetes Hypertension Maternal Grandfather No problems noted. Paternal Grandmother No problems noted. Paternal Grandfather Cancer Brother Prostate cancer Surgical History History of cardiac cath History of dilation and curettage History of lymph node dissection of left axilla History of total left knee replacement (TKR) History of total right knee replacement (TKR) Hx of bilateral cataract extraction Hx of colonoscopy Hx of esophagogastroduodenoscopy S/P lumpectomy, left breast Social History Household Members: Spouse and Family Household Members Other:: Graddaughter Housing: House Do you presently have visiting nurse or other home services: Yes Alcohol intake: never Patient Tobacco Use Status: Never used Tobacco Smoked in Last 30 Days: No e-Cigarette/Vaping Use: Never Used Second Hand Smoke Exposure: No Use of substances other than those prescribed or required for medical reasons: No Substance Use Type: Marijuana Advance Directives: Yes Advance Directives on File: Yes Advance Directives Date on File: 08/05/22 service: No Current occupational status: disabled Cognitive needs: Yes Hearing needs: No Vision needs: Yes Meds Allergies Allergy/AdvReac Type Severity Reaction Status Date / Time latex [LATEX] Allergy Intermediate RASH Verified 05/22/23 11:34 oxycodone AdvReac Severe Itching Verified 05/22/23 11:34 Active Medications: Current Medications Piperacillin Sod/Tazobactam (Sod 3.375 gm/ Sodium Chloride) 50 mls @ 100 mls/hr IV ONCE ONE Stop: 05/22/23 23:43 Physical Exam Vital Signs and Narrative: Vital Signs: Last Vital Signs Temp 99.1 F 05/22/23 20:41 Pulse 87 05/22/23 20:41 Resp 18 05/22/23 20:41 BP 126/63 05/22/23 20:41 Pulse Ox 95 05/22/23 20:02 O2 Del Method Room Air 05/22/23 20:02 BMI result Body Mass Index 40.8 Middle-aged female lying in bed in mild distress Neck supple, no JVD Regular rate and rhythm, S1-S2 heard Regular breath sounds bilaterally, no wheezing or crackles appreciated Abdomen with epigastric tenderness to mild palpation, no rigidity, no rebound tenderness Patient is awake, alert and oriented to self, place, time and person ; no focal motor deficit Psych: Normal mood No pedal edema Results Labs 05/22/23 21:48 05/22/23 21:48 Labs: Laboratory Results - last 24 hr 05/22/23 05/22/23 05/22/23 21:48 21:48 21:48 MCV 79.5 L MCH 25.4 L MCHC 32.0 RDW 14.7 Plt Count 239 MPV 9.8 Immature Gran % (Auto) 0.5 H Neut % (Auto) 85.1 H Lymph % (Auto) 8.8 L Cameron % (Auto) 5.2 Eos % (Auto) 0.1 Baso % (Auto) 0.3 Lymph # (Auto) 1.1 L Cameron # (Auto) 0.7 Eos # (Auto) 0.0 Baso # (Auto) 0.0 Abs Immat Gran (auto) 0.06 H Absolute Neuts (auto) 10.7 H Absolute Nucleated RBC 0.000 Nucleated RBC % (auto) 0.0 Anion Gap 19 Estim Creat Clear Calc 54.6 Estimated GFR 58 Random Glucose 168 H Lactic Acid 2.3 H* Calcium 10.0 Total Bilirubin 0.7 Direct Bilirubin 0.3 AST 20 ALT 21 Alkaline Phosphatase 116 Total Protein 8.3 H Albumin 3.9 Lipase 1016 H Imaging Radiologist's Impressions: Impressions Abdomen/Pelvis CT 05/22/23 21:44 IMPRESSION: Inflammatory changes centered around the pancreas in favor to represent acute pancreatitis; the presence of complications such as pancreatic necrosis are suboptimally assessed in the absence of IV contrast. Antropyloric and proximal duodenal wall thickening with surrounding inflammatory changes are most consistent with reactive changes in the setting of acute pancreatitis, although peptic ulcer disease/duodenitis/duodenal diverticulitis cannot be entirely excluded in the appropriate clinical context. There is a new ill-defined low density observation in the inferomedial right hepatic lobe adjacent to the postcholecystectomy bed/proximal duodenum which is nonspecific could represent reactive changes in the liver parenchyma versus perhaps early abscess formation. Further evaluation with an abdominal MRI with and without IV contrast is recommended. Periportal and peripancreatic lymphadenopathy is likely reactive, attention on follow-up in future examinations. Hepatomegaly and hepatic steatosis. Submucosal fatty deposition in the colon could be related with patient body habitus versus an underlying chronic inflammatory bowel disease. No evidence of pericolonic fat stranding or free fluid. This critical result was discussed with Karl Gomez MD at 05/22/2023 10:12 PM and it was ascertained that the content and urgency of the report was understood at the time of direct communication. Chest X-Ray 05/22/23 22:41 IMPRESSION: Mild cardiomegaly otherwise unremarkable chest exam Assessment and Plan (1) Acute pancreatitis: Status: Acute Plan This is a 67-year-old female with pertinent history of mood disorder, essential hypertension, asthma, mixed hyperlipidemia presents to the emergency department for evaluation of abdominal pain. #.? Acute pancreatitis. Will admit patient and continue IV crystalloid resuscitation. IV opioid p.r.n. symptomatic relief. Will keep NPO. Obtaining triglyceride level. Follow imaging #.? ?liver abscess on imaging. Will initiate empiric IV antibiotics. Obtain MRI to delineate anatomy #. Sepsis in the setting of above. Resuscitated with IV crystalloids. On IV antibiotics. Blood cultures and lactic acid obtained. #. Acute lactic acidosis due to sepsis. Resolved #. Hypokalemia. Repleted #.? Essential hypertension.? Resume antihypertensives unable to take p.o. #.? Asthma.? No exacerbation of admission.? Continue home inhaler #.? Mixed hyperlipidemia.? Hold statin #.? Morbid obesity.? Counseled regarding diet and exercise Med rec pending DVT prophylaxis.?Lovenox Full code Admit as inpatient and will require two night minimum hospital stay for IV antibiotics and IV crystalloid resuscitation Time Spent With Patient Time: Total time managing care of this patient today ____ minutes. Quality Stroke Does the patient have a stroke diagnosis?: No VTE Prior VTE?: No VTE Risk Level:: Medical - moderate - high VTE Device Contraindication: Treatment Not Indicated VTE Drug Contraindication: N/A - Med Ordered
[2023-05-22 23:48] LABS: Reflex Lactate? Lactic Acid Added
[2023-05-23] VITALS (7 sets, daily range): BP systolic 120–142; BP diastolic 48–76; PULSE 60–91; RESP 14–20; TEMP 36–37.1; O2SAT 92–96
[2023-05-23] MEDS: Piperacillin Sodium/Tazobactam 3.375 GM in 0.9 % Sodium Chloride 50 ML IV (00:03)
[2023-05-23] MEDS: Enoxaparin Sodium 40 MG/0.4 ML SYRINGE SUBCUT (00:04)
[2023-05-23] MEDS: Lactated Ringers 1,000 ML 125 ML IVCONT ×3 (00:13→16:11)
[2023-05-23 00:15] LABS: ~Lactic Acid-LAB USE ONLY 1.9 mmol/L (0.5-2.0)
[2023-05-23] MEDS: Potassium Chloride/H20 10 MEQ/100 ML PIGGYBACK 100 MEQ IV ×4 (00:18→03:54)
[2023-05-23] MEDS: 0.9 % Sodium Chloride Flush 3 ML SYRINGE IVFLUSH ×3 (00:22→23:26)
[2023-05-23 01:10] LABS: Triglycerides 101 mg/dL
--- NOTE | 2023-05-23 04:31 | PC.NURSE ---
PT still no void since arrival, BS showed only 108. notified. no new orders at this time.
[2023-05-23 05:38] LABS: MANUAL DIFF FLAG NO
[2023-05-23 05:42] LABS: Basophils Percent Auto 0.2 % (0-2); Eosinophils Absolute Auto 0.1 X10*3/uL (0.0-0.4); Eosinophils Percent Auto 1.3 % (0-4); Hematocrit 33.8 % (37.0-47.0); Hemoglobin 10.7 g/dl (12.0-16.0); Imm Gran Abs Auto 0.02 X10*3/uL (0.00-0.03); Imm Gran Pct Auto 0.2 % (0.0-0.4); Lymphocytes Absolute Auto 2.4 X10*3/uL (1.2-4.9); Lymphocytes Percent Auto 25.6 % (20-40); Mean Corpuscular HGB Conc 31.7 g/dl (31.0-35.0); Mean Corpuscular Hemoglobin 25.6 pg (27.0-33.0); Mean Corpuscular Volume 80.9 fL (80.0-98.0); Mean Platelet Volume 9.8 fL (9.4-12.3); Monocytes Absolute Auto 0.7 X10*3/uL (0.1-1.2); Monocytes Percent Auto 7.2 % (2-11); Neutrophils Percent Auto 65.5 % (45-73); Platelet Count 207 X10*3/uL (160-400); Red Blood Count 4.18 X10*6/uL (4.20-5.50); Red Cell Distribution Width 14.7 % (11.0-16.0); White Blood Count 9.2 X10*3/uL (4.8-10.8)
[2023-05-23 06:01] LABS: Anion Gap 14 (12-20); Blood Urea Nitrogen 14 mg/dL (9-16); Calcium 9.3 mg/dL (8.4-10.2); Carbon Dioxide 25 mmol/L (22-29); Chloride 107 mmol/L (96-108); Creatinine Clr Calc Pharmacy 61.6; Estimated Glomerular Filt Rate > 60; Glucose Random 131 mg/dL (60-115); Potassium 3.4 mmol/L (3.3-5.1); Sodium 143 mmol/L (135-145)
--- NOTE | 2023-05-23 06:04 | PC.NURSE ---
Pt up to commode, attempt to get urine but contaminated by stool. Ot void approximately 100ml with 1 assist to commode.
[2023-05-23] MEDS: Piperacillin Sodium/Tazobactam 4.5 GM in 0.9 % Sodium Chloride 100 ML IV ×4 (06:45→23:25)
[2023-05-23 07:17] LABS: Glucose, Whole Blood 124 mg/dL (60-115)
--- NOTE | 2023-05-23 08:39 | PHA.MEDREC ---
Pharmacy Consult ? Medication Reconciliation Pharmacy has completed the medication reconciliation. Pt states her medications have not changed from her discharge on 04/28 except for the 3 medications she has had added on (pantoprazole, sucralfate, and cephalexin). Used claim history and discharge summary to complete med rec.
[2023-05-23] MEDS: Escitalopram Oxalate 10 MG TABLET PO (10:36)
[2023-05-23] MEDS: Metoprolol Succinate ER 25 MG TAB.ER.24H PO (10:36)
--- NOTE | 2023-05-23 12:19 | P.CNGI_ITS ---
History of Present Illness Data of Consult Service Date: 05/23/23 Requesting physician: Vignesh Harmon Primary Care Provider: Adrianna Richter MD [facility] Reason for consult: Acute pancreatitis This is a 67-year-old female with past medical history of hypertension, anxiety, asthma, history of breast cancer, obesity, who presented to the hospital for abdominal pain and was found to have acute interstitial pancreatitis for which Gastroenterology has been consulted. History is pertinent for recent admission for cholecystits and choledocholithiasis status post cholecystectomy followed by ERCP ([place] [facility] and patient subsequently transferred to [facility]). Pt reports sudden onset of abd pain yest afternoon that radiates to her back associated with nausea and vomiting. Does not report any hx of etOH consumption, new meds, recent travel. When she presented to the ER she was noted to be febrile with elevated white count and lactate. LFTs normal. Lipase elevated. Non con imaging suggestive of AIP as well as possible small collection in lower R hepatic lobe. Review of Systems Review of Systems: Yes all other systems are reviewed and are negative PMFSH Past Medical History Medical History Abdominal pain Arthritis Asthma B12 deficiency Back pain Breast cancer Chronic pain Common bile duct dilation Constipation Depression Dizziness Dyslipidemia Elevated TSH Foot pain, bilateral Gallstones Hair loss Hair loss History of left bundle branch block (LBBB) History of pernicious anemia History of trigger finger History of vitamin D deficiency HTN (hypertension) Lumbar degenerative disc disease Mild aortic stenosis Mild recurrent major depression Moderate persistent asthma Morbid obesity Morbid obesity Murmur On beta mel at home Right hip pain Sleep apnea Tinnitus Family History Family History Father Prostate cancer Hypertension Mother Skin cancer Dementia Diabetes Daughter Lupus Maternal Grandmother Diabetes Hypertension Maternal Grandfather No problems noted. Paternal Grandmother No problems noted. Paternal Grandfather Cancer Brother Prostate cancer Surgical History Surgical History History of cardiac cath History of dilation and curettage History of lymph node dissection of left axilla History of total left knee replacement (TKR) History of total right knee replacement (TKR) Hx of bilateral cataract extraction Hx of colonoscopy Hx of esophagogastroduodenoscopy S/P lumpectomy, left breast Social History Social History Household Members: Spouse and Family Household Members Other:: Graddaughter Housing: House Do you presently have visiting nurse or other home services: Yes Alcohol intake: never Patient Tobacco Use Status: Never used Tobacco Smoked in Last 30 Days: No e-Cigarette/Vaping Use: Never Used Second Hand Smoke Exposure: No Use of substances other than those prescribed or required for medical reasons: No Substance Use Type: Marijuana Advance Directives: Yes Advance Directives on File: Yes Advance Directives Date on File: 08/05/22 service: No Current occupational status: disabled Cognitive needs: Yes Hearing needs: No Vision needs: Yes Meds Allergies Allergy/AdvReac Type Severity Reaction Status Date / Time latex [LATEX] Allergy Intermediate RASH Verified 05/22/23 11:34 oxycodone AdvReac Severe Itching Verified 05/22/23 11:34 Active Medications: Current Medications Acetaminophen (Acetaminophen 325 Mg Tablet) 650 mg PO Q6H PRN PRN Reason: Pain, Mild (Pain Scale 1-3) Acetaminophen (Acetaminophen Supp 650 Mg Supp.Rect) 650 mg [place] Q6H PRN PRN Reason: Pain, Mild (Pain Scale 1-3) Albuterol Sulfate (Albuterol Sulfate (0.083%) 2.5 Mg/3 Ml Vial.Neb) 2.5 mg INHALE RQ6H PRN PRN Reason: bronchospasm Cyanocobalamin (Cyanocobalamin (Vitamin B-12) 1,000 Mcg Tablet) 1,000 mcg PO DAILY [facility] Enoxaparin Sodium (Enoxaparin Sodium 40 Mg/0.4 Ml Syringe) 40 mg SUBCUT Q24H [facility] Last Admin: 05/23/23 00:04 Dose: 40 mg Escitalopram Oxalate (Escitalopram Oxalate 10 Mg Tablet) 10 mg PO DAILY [facility] Last Admin: 05/23/23 10:36 Dose: 10 mg Fluticasone/Vilanterol (Fluticasone/Vilanterol 100/25 Blst.W.Dev) 1 puff INHALE RDAILY [facility] Lactated Ringer's (Lr) 1,000 mls @ 125 mls/hr IVCONT .Q8H [facility] Last Admin: 05/23/23 07:25 Dose: 125 mls/hr Piperacillin Sod/Tazobactam (Sod 4.5 gm/ Sodium Chloride) 100 mls @ 200 mls/hr IV Q6H [facility] Last Admin: 05/23/23 06:45 Dose: 200 mls/hr Melatonin (Melatonin 3 Mg Tablet) 6 mg PO BEDTIME PRN PRN Reason: Insomnia Metoprolol Succinate (Metoprolol Succinate Er 25 Mg Tab.Er.24h) 25 mg PO DAILY [facility]; Protocol Last Admin: 05/23/23 10:36 Dose: 25 mg Morphine Sulfate (Morphine Sulfate 4 Mg/Ml Cartridge) 2 mg IVPUSH Q4H PRN; Protocol PRN Reason: Pain, Severe (Pain Scale 7-10) Omeprazole (Omeprazole 20 Mg Capsule.Dr) 20 mg PO BID@0630,1630 [facility] Ondansetron HCl (Ondansetron Hcl 4 Mg/2 Ml Vial) 4 mg IVPUSH Q8H PRN PRN Reason: Nausea and Vomiting Sodium Chloride (0.9 % Sodium Chloride Flush 3 Ml Syringe) 3 ml IVFLUSH QSHIFT [facility] Last Admin: 05/23/23 07:25 Dose: 3 ml Sucralfate (Sucralfate Oral Suspension 1 Gm/10 Ml Oral.Susp) 1 gm PO QIDACHS SC H Vitamin D (Cholecalciferol (Vitamin D3) 25 Mcg Tablet) 50 mcg PO DAILY [facility] Home Medications Medication Instructions Recorded Confirmed Last Taken Type furosemide 20 mg tablet 40 mg PO DAILY 05/23/23 05/23/23 05/22/23 History pantoprazole 40 mg tablet,delayed 40 mg PO BID@0630,1630 05/23/23 05/23/23 05/22/23 History release sucralfate 100 mg/mL oral 10 ml PO QIDACHS 05/23/23 05/23/23 05/22/23 History suspension Physical Exam Vital Signs: Vital Signs: Last Vital Signs Temp 99.1 F 05/22/23 20:41 Pulse 67 05/23/23 10:40 Resp 18 05/23/23 10:40 BP 134/58 L 05/23/23 10:40 Pulse Ox 96 05/23/23 10:40 O2 Del Method Room Air 05/23/23 01:04 O2 Flow Rate 75 05/23/23 01:04 BMI result Body Mass Index 40.8 Gen appear: NAD, nontoxic appearing HEENT: nonicteric, no cervical lymphadenopathy Chest: CTA CVS: Regular S1/S2 Abd: soft, very tender in epigastrium and RUQ, nondistended, bowel sounds + Ext: mild peripheral edema Neuro: A/Ox3, noted to move all extremities spontaneously Psych: interacting appropriately Results Labs 05/23/23 05:34 05/23/23 05:34 Labs: Short CBC 05/22/23 05/23/23 Range/Units 21:48 05:34 WBC 12.6 H 9.2 (4.8-10.8) X10*3/uL Hgb 12.5 10.7 L (12.0-16.0) g/dl Hct 39.1 33.8 L (37.0-47.0) % Plt Count 239 207 (160-400) X10*3/uL BMP 05/22/23 05/23/23 21:48 05:34 Sodium 145 143 Potassium 2.9 L 3.4 Chloride 104 107 Carbon Dioxide 25 25 BUN 13 14 Creatinine 0.96 0.85 Calcium 10.0 9.3 D Liver Function 05/22/23 Range/Units 21:48 Total Bilirubin 0.7 (0.0-1.0) mg/dL Direct Bilirubin 0.3 (0.0-0.5) mg/dL AST 20 (5-31) U/L ALT 21 (0-31) U/L Alkaline Phosphatase 116 (39-117) U/L Albumin 3.9 (3.5-5.0) g/dL Assessment and Plan (1) Acute pancreatitis: Status: Acute (2) Liver lesion, right lobe: Status: Acute Plan Unclear etiology of acute interstitial pancreatitis at this time, as pt reportedly had clearance of CBD at [facility], LFTs are normal here and CBD does not appear to be dilated. Pt does not drink. TG and Karthik normal. In terms of the R lobe collection, differentials include biloma (though typically presents within the first few days post CCY) vs hepatic abscess. Fever and white count could either be due to abscess (if this is abscess) vs SIRS response from pancreatitis. Recommendations: - Aggressive goal-directed fluid resuscitation with LR. This should be directed towards decrease in hematocrit and BUN in the next 12-24h. - Monitor urine output. - Monitor electrolytes including ionized Ca and Mg and correct appropriately - Check BG TID and HS and maintain between 140 and 180. Hyperglycemia may increase risk of local pancreatic infections - MRI Abd completed and report pending - Depending on findings may need repeat ERCP for stent placement if this is a biloma vs IR guided aspiration if this is hepatic abscess vs conservative management if this is a seroma. Thank you for the consultation. Will follow. Please do not hesitate to reach out for any questions or concerns. Time Spent With Patient Time: Total time managing care of this patient today ____ minutes. Procedures Date of Service Date of Service: 05/23/23
--- NOTE | 2023-05-23 14:44 | HO.PM.IMPN ---
Subjective Subjective Date of Service: 05/23/23 Interval History: Periumbilical and RUQ pain N/V NPO Review of Systems Review of Systems: Yes all other systems are reviewed and are negative Physical Exam Vital Signs: Vital Signs: Last Vital Signs Temp 98.1 F 05/23/23 12:59 Pulse 67 05/23/23 10:40 Resp 17 05/23/23 12:59 BP 134/58 L 05/23/23 10:40 Pulse Ox 96 05/23/23 10:40 O2 Del Method Room Air 05/23/23 01:04 O2 Flow Rate 75 05/23/23 01:04 BMI result Body Mass Index 40.8 Gen: in no acute distress HEENT: sclera anicteric, moist mucus membranes Neck: supple Lungs: clear to auscultation bilaterally Heart: regular rate and rhythm, no murmurs Abd: soft, tender RUQ + epigastrium, obese Ext: no edema Skin: warm/well-perfused Neuro: alert and oriented x3, no focal findings Psych: appropriate affect Objective Data Active Medications Acetaminophen (Acetaminophen 325 Mg Tablet) 650 mg PO Q6H PRN PRN Reason: Pain, Mild (Pain Scale 1-3) Acetaminophen (Acetaminophen Supp 650 Mg Supp.Rect) 650 mg [place] Q6H PRN PRN Reason: Pain, Mild (Pain Scale 1-3) Albuterol Sulfate (Albuterol Sulfate (0.083%) 2.5 Mg/3 Ml Vial.Neb) 2.5 mg INHALE RQ6H PRN PRN Reason: bronchospasm Cyanocobalamin (Cyanocobalamin (Vitamin B-12) 1,000 Mcg Tablet) 1,000 mcg PO DAILY [facility] Enoxaparin Sodium (Enoxaparin Sodium 40 Mg/0.4 Ml Syringe) 40 mg SUBCUT Q24H [facility] Last Admin: 05/23/23 00:04 Dose: 40 mg Documented By: NEERU Escitalopram Oxalate (Escitalopram Oxalate 10 Mg Tablet) 10 mg PO DAILY [facility] Last Admin: 05/23/23 10:36 Dose: 10 mg Documented By: OKSANA Fluticasone/Vilanterol (Fluticasone/Vilanterol 100/25 Blst.W.Dev) 1 puff INHALE RDAILY [facility] Lactated Ringer's (Lr) 1,000 mls @ 125 mls/hr IVCONT .Q8H [facility] Last Admin: 05/23/23 07:25 Dose: 125 mls/hr Documented By: OKSANA Piperacillin Sod/Tazobactam (Sod 4.5 gm/ Sodium Chloride) 100 mls @ 200 mls/hr IV Q6H [facility] Last Admin: 05/23/23 12:54 Dose: 200 mls/hr Documented By: OKSANA Melatonin (Melatonin 3 Mg Tablet) 6 mg PO BEDTIME PRN PRN Reason: Insomnia Metoprolol Succinate (Metoprolol Succinate Er 25 Mg Tab.Er.24h) 25 mg PO DAILY [facility]; Protocol Last Admin: 05/23/23 10:36 Dose: 25 mg Documented By: OKSANA Morphine Sulfate (Morphine Sulfate 4 Mg/Ml Cartridge) 2 mg IVPUSH Q4H PRN; Protocol PRN Reason: Pain, Severe (Pain Scale 7-10) Omeprazole (Omeprazole 20 Mg Capsule.Dr) 20 mg PO BID@0630,1630 [facility] Ondansetron HCl (Ondansetron Hcl 4 Mg/2 Ml Vial) 4 mg IVPUSH Q8H PRN PRN Reason: Nausea and Vomiting Sodium Chloride (0.9 % Sodium Chloride Flush 3 Ml Syringe) 3 ml IVFLUSH QSHIFT [facility] Last Admin: 05/23/23 07:25 Dose: 3 ml Documented By: OKSANA Sucralfate (Sucralfate Oral Suspension 1 Gm/10 Ml Oral.Susp) 1 gm PO QIDACHS [facility] Last Admin: 05/23/23 12:55 Dose: Not Given Documented By: OKSANA Non-Admin Reason: See Note Vitamin D (Cholecalciferol (Vitamin D3) 25 Mcg Tablet) 50 mcg PO DAILY [facility] Labs 05/23/23 05:34 05/23/23 05:34 Labs: Laboratory Results - last 24 hr 05/22/23 05/22/23 05/22/23 21:48 21:48 21:48 MCV 79.5 L MCH 25.4 L MCHC 32.0 RDW 14.7 Plt Count 239 MPV 9.8 Immature Gran % (Auto) 0.5 H Neut % (Auto) 85.1 H Lymph % (Auto) 8.8 L [place] % (Auto) 5.2 Eos % (Auto) 0.1 Baso % (Auto) 0.3 Lymph # (Auto) 1.1 L [place] # (Auto) 0.7 Eos # (Auto) 0.0 Baso # (Auto) 0.0 Abs Immat Gran (auto) 0.06 H Absolute Neuts (auto) 10.7 H Absolute Nucleated RBC 0.000 Nucleated RBC % (auto) 0.0 Anion Gap 19 Estim Creat Clear Calc 54.6 Estimated GFR 58 POC Glucose Random Glucose 168 H Lactic Acid 2.3 H* Lactic Acid F/U @ 2Hr Calcium 10.0 Total Bilirubin 0.7 Direct Bilirubin 0.3 AST 20 ALT 21 Alkaline Phosphatase 116 Total Protein 8.3 H Albumin 3.9 Triglycerides 101 Lipase 1016 H 05/22/23 05/23/23 05/23/23 23:58 05:34 05:34 MCV 80.9 MCH 25.6 L MCHC 31.7 RDW 14.7 Plt Count 207 MPV 9.8 Immature Gran % (Auto) 0.2 Neut % (Auto) 65.5 Lymph % (Auto) 25.6 [place] % (Auto) 7.2 Eos % (Auto) 1.3 Baso % (Auto) 0.2 Lymph # (Auto) 2.4 [place] # (Auto) 0.7 Eos # (Auto) 0.1 Baso # (Auto) 0.0 Abs Immat Gran (auto) 0.02 Absolute Neuts (auto) 6.0 Absolute Nucleated RBC 0.000 Nucleated RBC % (auto) 0.0 Anion Gap 14 Estim Creat Clear Calc 61.6 Estimated GFR > 60 POC Glucose Random Glucose 131 H Lactic Acid Lactic Acid F/U @ 2Hr 1.9 Calcium 9.3 D Total Bilirubin Direct Bilirubin AST ALT Alkaline Phosphatase Total Protein Albumin Triglycerides Lipase 05/23/23 07:00 MCV MCH MCHC RDW Plt Count MPV Immature Gran % (Auto) Neut % (Auto) Lymph % (Auto) [place] % (Auto) Eos % (Auto) Baso % (Auto) Lymph # (Auto) [place] # (Auto) Eos # (Auto) Baso # (Auto) Abs Immat Gran (auto) Absolute Neuts (auto) Absolute Nucleated RBC Nucleated RBC % (auto) Anion Gap Estim Creat Clear Calc Estimated GFR POC Glucose 124 H Random Glucose Lactic Acid Lactic Acid F/U @ 2Hr Calcium Total Bilirubin Direct Bilirubin AST ALT Alkaline Phosphatase Total Protein Albumin Triglycerides Lipase Assessment and Plan (1) Acute pancreatitis: Status: Acute (2) Liver lesion, right lobe: Status: Acute Plan d2 67yo F with hx cholecystitis + choledocholithiasis s/p lap james then ERCP x2 [initially at [facility] then at [facility]] who presented with suddenn-onset abd pain, nausea and vomiting and was found to be febrile with leukocytosis and lactic acidosis, imaging suggestive of pancreatitis and possible liver abscess acute pancreatitis - delayed s/p ERCP. NPO, IV crystalloids, IV opioids, GI consultation possible liver abscess - MRI pending- if abscess, will need drainage; if biloma, will need stenting sepsis due to pancreatitis versus liver abscess - pip-familia d2, follow BCx lactic acidosis - resolved s/p fluid resuscitation hypoK - repleted HTN - metoprolol succinate, hold furosemide asthma, not in acute exac - controller inhaler, rescue inhaler HLD - hold statin mood disorder - escitalopram VTE ppx - LMWH dispo - TBD In my clinical judgment, the patient requires continued inpatient hospitalization for the following reasons: IV fluids, IV ABX Time Spent With Patient Time: Total time managing care of this patient today _45___ minutes. Quality Stroke Does the patient have a stroke diagnosis?: No VTE Prior VTE?: No VTE Risk Level:: Medical - moderate - high VTE Device Contraindication: Treatment Not Indicated VTE Drug Contraindication: N/A - Med Ordered
[2023-05-23 14:51] LABS: Appearance Urine Clear; Color Urine Yellow; Glucose Urine UA Negative (Negative); Leukocyte Esterase Urine Negative (Negative); Nitrite Urine Negative (Negative); Urine Blood Negative (Negative); Urine Ketones Negative (Negative); Urine Protein Negative (Neg-Trace)
[2023-05-23 15:35] LABS: Glucose, Whole Blood 103 mg/dL (60-115)
--- NOTE | 2023-05-23 16:26 | PC.NURSE ---
rn to rn isabella mallory on floor
[2023-05-23] MEDS: Omeprazole 20 MG CAPSULE.DR PO (17:54)
[2023-05-23] MEDS: Sucralfate Oral Suspension 1 GM/10 ML ORAL.SUSP PO ×2 (17:54→21:09)
[2023-05-23 18:02] LABS: C Reactive Protein 6.91 mg/dL (< or = 0.50); Lactate Dehydrogenase 228 U/L (122-220)
[2023-05-23 19:58] LABS: Glucose, Whole Blood 104 mg/dL (60-115)
[2023-05-24] MEDS: Lactated Ringers 1,000 ML 125 ML IVCONT ×2 (02:45→08:45)
[2023-05-24 03:47] LABS: Estimated Average Glucose 137 mg/dL; Hemoglobin A1c % 6.4 %
[2023-05-24 04:00] VITALS: BP 118/62; PULSE 58; RESP 18; TEMP 36.2; O2SAT 97
[2023-05-24] MEDS: Piperacillin Sodium/Tazobactam 4.5 GM in 0.9 % Sodium Chloride 100 ML IV ×2 (05:28→11:14)
[2023-05-24] MEDS: Omeprazole 20 MG CAPSULE.DR PO (05:28)
[2023-05-24 06:58] LABS: Hematocrit 33.5 % (37.0-47.0); Hemoglobin 10.5 g/dl (12.0-16.0); Mean Corpuscular HGB Conc 31.3 g/dl (31.0-35.0); Mean Corpuscular Hemoglobin 25.3 pg (27.0-33.0); Mean Corpuscular Volume 80.7 fL (80.0-98.0); Mean Platelet Volume 10.1 fL (9.4-12.3); Platelet Count 186 X10*3/uL (160-400); Red Blood Count 4.15 X10*6/uL (4.20-5.50); Red Cell Distribution Width 14.8 % (11.0-16.0); White Blood Count 6.8 X10*3/uL (4.8-10.8)
[2023-05-24 07:01] LABS: INTERNATIONAL NORM RATIO 1.1 (0.9-1.1); Prothrombin Time 13.3 SEC (11.1-13.3)
[2023-05-24 07:04] LABS: Alanine Aminotransferase 14 U/L (0-31); Alkaline Phosphatase 76 U/L (39-117); Anion Gap 16 (12-20); Aspartate Amino Transferase 14 U/L (5-31); Bilirubin Total 0.9 mg/dL (0.0-1.0); Blood Urea Nitrogen 11 mg/dL (9-16); Calcium 9.2 mg/dL (8.4-10.2); Carbon Dioxide 24 mmol/L (22-29); Chloride 110 mmol/L (96-108); Creatinine Clr Calc Pharmacy 67.2; Estimated Glomerular Filt Rate > 60; Glucose Random 94 mg/dL (60-115); Partial Thromboplastin Time 28.4 SEC (26.0-36.4); Potassium 3.2 mmol/L (3.3-5.1); Sodium 147 mmol/L (135-145); Total Protein 6.6 g/dL (6.5-8.0)
[2023-05-24 07:39] VITALS: BP 153/72; PULSE 69; RESP 18; TEMP 36.6; O2SAT 95
[2023-05-24 07:47] LABS: Glucose, Whole Blood 104 mg/dL (60-115)
[2023-05-24] MEDS: Escitalopram Oxalate 10 MG TABLET PO (08:45)
[2023-05-24] MEDS: Cholecalciferol (Vitamin D3) 25 MCG TABLET 50 MCG PO (08:45)
[2023-05-24] MEDS: Cyanocobalamin (Vitamin B-12) 1,000 MCG TABLET 1000 MCG PO (08:45)
[2023-05-24] MEDS: Sucralfate Oral Suspension 1 GM/10 ML ORAL.SUSP PO (08:45)
[2023-05-24] MEDS: Metoprolol Succinate ER 25 MG TAB.ER.24H PO (08:45)
[2023-05-24] MEDS: 0.9 % Sodium Chloride Flush 3 ML SYRINGE IVFLUSH (08:46)
[2023-05-24] MEDS: Potassium Chloride/H20 10 MEQ/100 ML PIGGYBACK 100 MEQ IV ×2 (08:46→10:20)
--- NOTE | 2023-05-24 09:57 | MHC.CM.PN ---
Lives w/ and daughter/daughter's family in daughter' home. Owns walker, cane, commode, shower chair. Pt's drives her where she needs to go when he can; at times she can't get to appts when he can't drive, daughter does not have a car. Pt on services w/[facility]. Daughter indicated [employer] hrs 17hrs/wk just approved for her to begin working these hrs, but is now in review for increasing these hrs D/T PT's increased needs and acuity. Daughter states D/C plan is to either return to home w/[facility] return to service, or SNF (if Pt agrees). Daughter states the only way Pt will consider SNF is if there is an accepting SNF in the immediate [place] area/surrounding area, as no one in the family has transportation, and they suffer from severe depression when they cannot be together during periods of illness. HCP reviewed, no witness page verified. CM to follow.
--- NOTE | 2023-05-24 10:03 | P.DS_ITS ---
DS: Providers Provider Date of Service: 05/24/23 Date of admission: 05/22/23 23:21 Date of discharge: 05/24/23 Primary care physician: Adrianna Richter MD Consults: 05/23/23 07:41 Consult to Gastroenterology Routine Consulting Provider: [facility] Reason for consultation: pancreatitis after ERCP x2 (1 at [place]), ?liver abscess Has provider been notified: Yes 05/23/23 16:32 Consult to Infectious Diseases Routine Consulting Provider: [facility] Infect[facility] Disease Reason for consultation: liver abscess DS: Transfer Hospital Acceptance Reason for Transfer: Liver abscess draininage Name of Facility: [facility] Accepting Provider: Blake Alexis MD, hospitalist DS: Diagnosis Discharge Diagnosis (1) Acute pancreatitis: Status: Acute (2) Post-ERCP acute pancreatitis: Status: Acute (3) Hepatic abscess: Status: Acute (4) Severe sepsis: Status: Resolved DS: Summary Hospital Course Hospital Course: From admission history and physical by hospitalist Kim Arreguin MD, 05/22/23: This is a 67-year-old female with pertinent history of mood disorder, essential hypertension, asthma, mixed hyperlipidemia presents to the emergency department for evaluation of abdominal pain.? Patient states she started having epigastric abdominal pain on the day of presentation, radiating to the back, constant.? It was without any relieving factors.? Worsened with movement or inspiration.? Also had associated nausea and vomiting.? Patient denies significant alcohol use or similar complaints in the past.? Does endorse fevers and chills.? She denies chest discomfort, palpitations, shortness of breath, changes in urinary or bowel habits. In the emergency department, lipase found to be elevated and imaging concerning for acute pancreatitis. Ms Murray is a 67yo F with a history of acute cholecystitis s/p lap james 04/25/23 during which he was found to have an impacted distal common bile duct stone for which he underwent ERCP 04/28/23 that was unsuccessful due to the ampullary orifice being located in a duodenal diverticulum. She was transferred to [facility] and underwent successful ERCP with clearing of the CBD and placement of pancreatic stent on 04/30/23. She was discharged home on 05/06/23. She presented to the [facility] ED on 05/22/23 with sudden-onset abdominal pain, nausea, and vomiting. She was found to be febrile with leukocytosis and lactic acidosis. Imaging was suggestive of acute edematous pancreatitis and possible liver abscess. She was admitted to the telemetry unit and made NPO. She was given aggressive IV fluid resuscitation and IV opioids. She was given IV piperacillin-tazobactam. Lactic acidosis resolved. Gastroenterology was consulted. MRI demonstrated a 2.7cm inferomedial right hepatic lobe abscess. On 05/24/23, 1 of 2 blood cultures returned positive for Gm-positive cocci in clusters, so vancomycin was added to her antibiotics. No interventional radiology was available over the weekend for definitive liver abscess drainage/catheterization, so she was transferred to [facility] on 05/24/23 for drainage of the abscess with GI consultation to determine whether it should be drained externally or via EUS. Time Spent with Patient Time attestation: Total time managing care of this patient today __55__ minutes. Discharge coordination time: Greater than 30 minutes Quality: Safe Use of Opioids Does Pt have an Active Cancer Diagnosis on the Problem List?: No Quality: Stroke Does the patient have a stroke diagnosis?: No Physical Exam Vital Signs: Vital Signs: Last Vital Signs Temp 97.9 F 05/24/23 07:39 Pulse 69 05/24/23 07:39 Resp 18 05/24/23 07:39 BP 153/72 H 05/24/23 07:39 Pulse Ox 95 05/24/23 07:39 O2 Del Method Room Air 05/24/23 07:39 O2 Flow Rate 75 05/23/23 01:04 BMI result Body Mass Index 40.8 Gen: in no acute distress HEENT: sclera anicteric, moist mucus membranes Neck: supple Lungs: clear to auscultation bilaterally Heart: regular rate and rhythm, no murmurs Abd: soft, tender RUQ + epigastrium, obese Ext: no edema Skin: warm/well-perfused Neuro: alert and oriented x3, no focal findings Psych: appropriate affect DS: Data Data Completed and Pending Completed studies during hospitalization [Text1]: Microbiology 05/22/23 21:48 Blood - Venous Blood Culture - Preliminary No growth after 24 hours. 05/22/23 21:48 Blood - Venous Blood Culture - Preliminary Prelim: GPC Gram Stain only Laboratory Tests 05/22/23 05/22/23 05/22/23 21:48 21:48 21:48 WBC 12.6 H RBC 4.92 Hgb 12.5 Hct 39.1 MCV 79.5 L MCH 25.4 L MCHC 32.0 RDW 14.7 Plt Count 239 MPV 9.8 Immature Gran % (Auto) 0.5 H Neut % (Auto) 85.1 H Lymph % (Auto) 8.8 L [place] % (Auto) 5.2 Eos % (Auto) 0.1 Baso % (Auto) 0.3 Lymph # (Auto) 1.1 L [place] # (Auto) 0.7 Eos # (Auto) 0.0 Baso # (Auto) 0.0 Abs Immat Gran (auto) 0.06 H Absolute Neuts (auto) 10.7 H Absolute Nucleated RBC 0.000 Nucleated RBC % (auto) 0.0 PT INR APTT Sodium 145 Potassium 2.9 L Chloride 104 Carbon Dioxide 25 Anion Gap 19 BUN 13 Creatinine 0.96 Estim Creat Clear Calc 54.6 Estimated GFR 58 POC Glucose Random Glucose 168 H Estimat Average Glucose Hemoglobin A1c % Lactic Acid 2.3 H* Lactic Acid F/U @ 2Hr Calcium 10.0 Magnesium Total Bilirubin 0.7 Direct Bilirubin 0.3 AST 20 ALT 21 Alkaline Phosphatase 116 Lactate Dehydrogenase C-Reactive Protein Total Protein 8.3 H Albumin 3.9 Triglycerides 101 Lipase 1016 H Urine Color Urine Appearance Urine pH Ur Specific [place] Urine Protein Urine Glucose (UA) Urine Ketones Urine Blood Urine Nitrite Ur Leukocyte Esterase 05/22/23 05/23/23 05/23/23 23:58 05:34 05:34 WBC 9.2 RBC 4.18 L Hgb 10.7 L Hct 33.8 L MCV 80.9 MCH 25.6 L MCHC 31.7 RDW 14.7 Plt Count 207 MPV 9.8 Immature Gran % (Auto) 0.2 Neut % (Auto) 65.5 Lymph % (Auto) 25.6 [place] % (Auto) 7.2 Eos % (Auto) 1.3 Baso % (Auto) 0.2 Lymph # (Auto) 2.4 [place] # (Auto) 0.7 Eos # (Auto) 0.1 Baso # (Auto) 0.0 Abs Immat Gran (auto) 0.02 Absolute Neuts (auto) 6.0 Absolute Nucleated RBC 0.000 Nucleated RBC % (auto) 0.0 PT INR APTT Sodium 143 Potassium 3.4 Chloride 107 Carbon Dioxide 25 Anion Gap 14 BUN 14 Creatinine 0.85 Estim Creat Clear Calc 61.6 Estimated GFR > 60 POC Glucose Random Glucose 131 H Estimat Average Glucose Hemoglobin A1c % Lactic Acid Lactic Acid F/U @ 2Hr 1.9 Calcium 9.3 D Magnesium Total Bilirubin Direct Bilirubin AST ALT Alkaline Phosphatase Lactate Dehydrogenase 228 H C-Reactive Protein 6.91 H Total Protein Albumin Triglycerides Lipase Urine Color Urine Appearance Urine pH Ur Specific [place] Urine Protein Urine Glucose (UA) Urine Ketones Urine Blood Urine Nitrite Ur Leukocyte Esterase 05/23/23 05/23/23 05/23/23 05:34 07:00 14:45 WBC RBC Hgb Hct MCV MCH MCHC RDW Plt Count MPV Immature Gran % (Auto) Neut % (Auto) Lymph % (Auto) [place] % (Auto) Eos % (Auto) Baso % (Auto) Lymph # (Auto) [place] # (Auto) Eos # (Auto) Baso # (Auto) Abs Immat Gran (auto) Absolute Neuts (auto) Absolute Nucleated RBC Nucleated RBC % (auto) PT INR APTT Sodium Potassium Chloride Carbon Dioxide Anion Gap BUN Creatinine Estim Creat Clear Calc Estimated GFR POC Glucose 124 H Random Glucose Estimat Average Glucose 137 Hemoglobin A1c % 6.4 Lactic Acid Lactic Acid F/U @ 2Hr Calcium Magnesium Total Bilirubin Direct Bilirubin AST ALT Alkaline Phosphatase Lactate Dehydrogenase C-Reactive Protein Total Protein Albumin Triglycerides Lipase Urine Color Yellow Urine Appearance Clear Urine pH 6.0 Ur Specific [place] 1.020 Urine Protein Negative Urine Glucose (UA) Negative Urine Ketones Negative Urine Blood Negative Urine Nitrite Negative Ur Leukocyte Esterase Negative 05/23/23 05/23/23 05/24/23 15:31 19:47 05:47 WBC 6.8 RBC 4.15 L Hgb 10.5 L Hct 33.5 L MCV 80.7 MCH 25.3 L MCHC 31.3 RDW 14.8 Plt Count 186 MPV 10.1 Immature Gran % (Auto) Neut % (Auto) Lymph % (Auto) [place] % (Auto) Eos % (Auto) Baso % (Auto) Lymph # (Auto) [place] # (Auto) Eos # (Auto) Baso # (Auto) Abs Immat Gran (auto) Absolute Neuts (auto) Absolute Nucleated RBC 0.000 Nucleated RBC % (auto) 0.0 PT INR APTT Sodium Potassium Chloride Carbon Dioxide Anion Gap BUN Creatinine Estim Creat Clear Calc Estimated GFR POC Glucose 103 104 Random Glucose Estimat Average Glucose Hemoglobin A1c % Lactic Acid Lactic Acid F/U @ 2Hr Calcium Magnesium Total Bilirubin Direct Bilirubin AST ALT Alkaline Phosphatase Lactate Dehydrogenase C-Reactive Protein Total Protein Albumin Triglycerides Lipase Urine Color Urine Appearance Urine pH Ur Specific [place] Urine Protein Urine Glucose (UA) Urine Ketones Urine Blood Urine Nitrite Ur Leukocyte Esterase 05/24/23 05/24/23 05/24/23 05:47 05:47 07:40 WBC RBC Hgb Hct MCV MCH MCHC RDW Plt Count MPV Immature Gran % (Auto) Neut % (Auto) Lymph % (Auto) [place] % (Auto) Eos % (Auto) Baso % (Auto) Lymph # (Auto) [place] # (Auto) Eos # (Auto) Baso # (Auto) Abs Immat Gran (auto) Absolute Neuts (auto) Absolute Nucleated RBC Nucleated RBC % (auto) PT 13.3 INR 1.1 APTT 28.4 Sodium 147 H Potassium 3.2 L Chloride 110 H Carbon Dioxide 24 Anion Gap 16 BUN 11 Creatinine 0.78 Estim Creat Clear Calc 67.2 Estimated GFR > 60 POC Glucose 104 Random Glucose 94 Estimat Average Glucose Hemoglobin A1c % Lactic Acid Lactic Acid F/U @ 2Hr Calcium 9.2 Magnesium 2.0 Total Bilirubin 0.9 Direct Bilirubin AST 14 ALT 14 Alkaline Phosphatase 76 Lactate Dehydrogenase C-Reactive Protein Total Protein 6.6 Albumin 3.0 L Triglycerides Lipase Urine Color Urine Appearance Urine pH Ur Specific [place] Urine Protein Urine Glucose (UA) Urine Ketones Urine Blood Urine Nitrite Ur Leukocyte Esterase ITS Impressions Abdomen/Pelvis CT 05/22/23 21:44 IMPRESSION: Inflammatory changes centered around the pancreas in favor to represent acute pancreatitis; the presence of complications such as pancreatic necrosis are suboptimally assessed in the absence of IV contrast. Antropyloric and proximal duodenal wall thickening with surrounding inflammatory changes are most consistent with reactive changes in the setting of acute pancreatitis, although peptic ulcer disease/duodenitis/duodenal diverticulitis cannot be entirely excluded in the appropriate clinical context. There is a new ill-defined low density observation in the inferomedial right hepatic lobe adjacent to the postcholecystectomy bed/proximal duodenum which is nonspecific could represent reactive changes in the liver parenchyma versus perhaps early abscess formation. Further evaluation with an abdominal MRI with and without IV contrast is recommended. Periportal and peripancreatic lymphadenopathy is likely reactive, attention on follow-up in future examinations. Hepatomegaly and hepatic steatosis. Submucosal fatty deposition in the colon could be related with patient body habitus versus an underlying chronic inflammatory bowel disease. No evidence of pericolonic fat stranding or free fluid. This critical result was discussed with Karl Gomez MD at 05/22/2023 10:12 PM and it was ascertained that the content and urgency of the report was understood at the time of direct communication. Chest X-Ray 05/22/23 22:41 IMPRESSION: Mild cardiomegaly otherwise unremarkable chest exam Abdomen MRI 05/23/23 09:04 IMPRESSION: 1. There is a 2.7 cm rim enhancing collection in the inferomedial right hepatic lobe new compared to MRI from 04/25/2023, favoring to represent an abscess. 2. Again noted peripancreatic and periduodenal inflammatory changes, favoring to represent acute edematous pancreatitis with reactive duodenal changes, less likely peptic ulcer disease/duodenitis depending on the clinical context. 3. The antropyloric stomach/duodenal bulb are wall thickened and hyperenhancing, in close proximity to the above-described liver collection, favoring to represent as well reactive changes. Correlation with an upper endoscopy could be obtained as clinically indicated. 4. Hepatomegaly and hepatic steatosis. Discharge Plan Discharge Anticipated Discharge Date/Time: 05/24/23 09:58 Patient Disposition: [facility] Discharge Diagnosis: post-ERCP pancreatitis post-ERCP and post-cholecystectomy liver abscess possible Gram-positive cocci bacteremia Referrals: Adrianna Sharp MD [Primary Care Provider] - 1 Week Discharge Medications: New acetaminophen 325 mg Tablet 650 mg PO Q6H PRN (Reason: Pain, Mild (Pain Scale 1-3)) Qty: 1 0RF piperacillin-tazobactam 4.5 gram Recon Soln 4.5 g IV Q6H Qty: 1 0RF insulin lispro [Humalog U-100 Insulin] 100 unit/mL Solution See Protocol subcut QIDACHS Qty: 1 0RF Protocol: Insulin Correction Scale Less than or equal to 110 ---- Give (units): 0 111 to 150 Give (units): 0 151 to 200 Give (units): 2 201 to 250 Give (units): 4 251 to 300 Give (units): 6 301 to 350 Give (units): 8 Greater than 350 Give (units): 10 Call MD if Blood Glucose > : 350 ondansetron HCl (PF) 4 mg/2 mL Solution 4 mg IVPUSH Q8H PRN (Reason: Nausea And Vomiting) Qty: 1 0RF morphine 4 mg/mL Syringe 2 mg IVPUSH Q4H PRN (Reason: Pain, Severe (Pain Scale 7-10)) Qty: 1 0RF Protocol: Hold for RR < HOLD and contact provider for RR < (bpm): 12 Rx Instructions: Partial Fill upon patient request. Vancomycin Consult Rx Dosing [Consult Rx Vancomycin Dosing] 1 ea miscellaneous DAILY Qty: 1 0RF Continued (DME) miscellaneous medical [place] [facility] [place] Rx Instructions .ROUTE .MEDSUPPLY Qty: 1 0RF Rx Instructions: GRAB BAR 18 [place] [place] miscellaneous medical [place] [facility] [place] See Rx Instructions .ROUTE .MEDSUPPLY Qty: 1 0RF Rx Instructions: toilet safety frame [place] Ultra-Light Rollator [facility] [place] Rx Instructions .ROUTE .MEDSUPPLY Qty: 1 0RF Rx Instructions: As directed Proair Digihaler 90 mcg/actuation aero powdr breath act w/sensor 2 inh inhalation Q4-6H PRN (Reason: shortness of breath or wheezing) 30 Days Qty: 1 6RF (DME) nebulizers [AeroEclipse II Nebulizer] Mis See Rx Instructions .Route Qty: 1 0RF Rx Instructions: As directed albuterol sulfate 2.5 mg /3 mL (0.083 %) solution for nebulization 2.5 mg inhalation Q6H PRN (Reason: bronchospasm) 30 Days Qty: 75 1RF metoprolol succinate 25 mg tablet extended release 24 hr 25 mg PO DAILY 90 Days Qty: 90 3RF cyanocobalamin (vitamin B-12) [Vitamin B-12] 1,000 mcg tablet 1,000 mcg PO DAILY Qty: 90 1RF cholecalciferol (vitamin D3) [Vitamin D3] 50 mcg (2,000 unit) tablet 50 mcg PO DAILY Qty: 30 5RF atorvastatin 20 mg tablet 20 mg PO DAILY 90 Days Qty: 90 3RF escitalopram oxalate 10 mg tablet 10 mg PO DAILY 90 Days Qty: 90 1RF sucralfate 100 mg/mL suspension 10 ml PO QIDACHS pantoprazole 40 mg tablet,delayed release (DR/EC) 40 mg PO BID@0630,1630 Advair HFA 230-21 mcg/actuation HFA aerosol inhaler 2 puff inhalation Q12H 30 Days Qty: 1 6RF Discontinued ferrous sulfate 324 mg (65 mg iron) tablet,delayed release (DR/EC) 324 mg PO DAILY 90 Days Qty: 90 1RF oxycodone-acetaminophen 10-325 mg tablet 1 tab PO Q6H PRN (Reason: pain) 30 Days Qty: 120 0RF ondansetron 8 mg tablet,disintegrating 8 mg PO Q8H PRN (Reason: nausea and vomiting) 30 Days Qty: 90 0RF furosemide 20 mg tablet 40 mg PO DAILY cephalexin 500 mg tablet 500 mg PO Q12H 7 Days Qty: 14 0RF Discharge Orders: Discharge Order (Routine); Ordered 05/24/23 Ordered By: Vignesh Harmon Diet: NPO Activity on Discharge: As tolerated Stand Alone Forms: Patient Portal Discharge page Care Plan Goals: Definitive treatment of liver abscess Health Concerns: post-ERCP pancreatitis post-ERCP and post-cholecystectomy liver abscess possible Gram-positive cocci bacteremia Plan of Treatment: Transfer to [facility] for definitive management Continue piperacillin-tazobactam Started vancomycin on 05/24/23 due to Gram-positive cocci in 1 of 2 blood cutlures from 05/22/23 NPO IV fluid resuscitation Assessment: See Discharge Summary. Discharge Date/Time: 05/24/23 13:18
[2023-05-24] MEDS: vancomycin/NS 2,000 MG/500 ML PLAST..BAG 250 MG IV (10:54)
[2023-05-24 11:10] VITALS: BP 126/59; PULSE 66; RESP 18; TEMP 36.1; O2SAT 94
--- NOTE | 2023-05-24 11:26 | P.PNGI_ITS ---
Subjective Subjective Date of Service: 05/24/23 Interval History: Sitting up in a chair comfortably at the time of assesment. Reports some improvement in abd pain and nausea. MRI reviewed - consistent with R lobe small hepatic abscess Critical Care Time (minutes): 0 Physical Exam Vital Signs: Vital Signs: Last Vital Signs Temp 97.0 F 05/24/23 11:10 Pulse 66 05/24/23 11:10 Resp 18 05/24/23 11:10 BP 126/59 L 05/24/23 11:10 Pulse Ox 94 05/24/23 11:10 O2 Del Method Room Air 05/24/23 11:10 O2 Flow Rate 75 05/23/23 01:04 BMI result Body Mass Index 40.8 Gen appear: Non toxic appearing HEENT: Non icteric Abd: soft, mildly distended, tender still Objective Data Labs 05/24/23 05:47 05/24/23 05:47 Labs: Laboratory Results - last 24 hr 05/23/23 05/23/23 05/23/23 05:34 05:34 14:45 WBC RBC Hgb Hct MCV MCH MCHC RDW Plt Count MPV Absolute Nucleated RBC Nucleated RBC % (auto) PT INR APTT Sodium Potassium Chloride Carbon Dioxide Anion Gap BUN Creatinine Estim Creat Clear Calc Estimated GFR POC Glucose Random Glucose Estimat Average Glucose 137 Hemoglobin A1c % 6.4 Calcium Magnesium Total Bilirubin AST ALT Alkaline Phosphatase Lactate Dehydrogenase 228 H C-Reactive Protein 6.91 H Total Protein Albumin Urine Color Yellow Urine Appearance Clear Urine pH 6.0 Ur Specific [place] 1.020 Urine Protein Negative Urine Glucose (UA) Negative Urine Ketones Negative Urine Blood Negative Urine Nitrite Negative Ur Leukocyte Esterase Negative 05/23/23 05/23/23 05/24/23 15:31 19:47 05:47 WBC 6.8 RBC 4.15 L Hgb 10.5 L Hct 33.5 L MCV 80.7 MCH 25.3 L MCHC 31.3 RDW 14.8 Plt Count 186 MPV 10.1 Absolute Nucleated RBC 0.000 Nucleated RBC % (auto) 0.0 PT INR APTT Sodium Potassium Chloride Carbon Dioxide Anion Gap BUN Creatinine Estim Creat Clear Calc Estimated GFR POC Glucose 103 104 Random Glucose Estimat Average Glucose Hemoglobin A1c % Calcium Magnesium Total Bilirubin AST ALT Alkaline Phosphatase Lactate Dehydrogenase C-Reactive Protein Total Protein Albumin Urine Color Urine Appearance Urine pH Ur Specific [place] Urine Protein Urine Glucose (UA) Urine Ketones Urine Blood Urine Nitrite Ur Leukocyte Esterase 05/24/23 05/24/23 05/24/23 05:47 05:47 07:40 WBC RBC Hgb Hct MCV MCH MCHC RDW Plt Count MPV Absolute Nucleated RBC Nucleated RBC % (auto) PT 13.3 INR 1.1 APTT 28.4 Sodium 147 H Potassium 3.2 L Chloride 110 H Carbon Dioxide 24 Anion Gap 16 BUN 11 Creatinine 0.78 Estim Creat Clear Calc 67.2 Estimated GFR > 60 POC Glucose 104 Random Glucose 94 Estimat Average Glucose Hemoglobin A1c % Calcium 9.2 Magnesium 2.0 Total Bilirubin 0.9 AST 14 ALT 14 Alkaline Phosphatase 76 Lactate Dehydrogenase C-Reactive Protein Total Protein 6.6 Albumin 3.0 L Urine Color Urine Appearance Urine pH Ur Specific [place] Urine Protein Urine Glucose (UA) Urine Ketones Urine Blood Urine Nitrite Ur Leukocyte Esterase Microbiology Microbiology Results: Microbiology 05/22/23 21:48 Blood - Venous Blood Culture - Preliminary Prelim: GPC Gram Stain only 05/22/23 21:48 Blood - Venous Blood Culture - Preliminary No growth after 24 hours. Procedures Date of Service Date of Service: 05/24/23 Progress Note: A&P Assessment and plan (1) Hepatic abscess: Status: Acute (2) Acute pancreatitis: Status: Acute Plan MRI findings reviewed. Likely has pyogenic liver abscness which is rare but known complication of CCY and ERCP. - Cont zosyn - Can DC Vancomycin from GI standpoint - Ideally would need aspiration for micro - Can start clears and advance as tolerated if no IR guided procedure planned for today Time Spent With Patient Time: Total time managing care of this patient today ____ minutes. Quality Stroke Does the patient have a stroke diagnosis?: No VTE Prior VTE?: No VTE Risk Level:: Medical - moderate - high VTE Device Contraindication: Treatment Not Indicated VTE Drug Contraindication: N/A - Med Ordered
--- NOTE | 2023-05-24 11:28 | PHA.PROG ---
Admission Date/Time: May 22, 2023 23:21 Indication: BACTEREMIA Weight in k.6 kg Serum Creatinine - Last 168 Hours 05/22/23 05/23/23 05/24/23 21:48 05:34 05:47 Creatinine 0.96 0.85 0.78 Estimated CrCl and GFR - Last 168 Hours 05/22/23 05/23/23 05/24/23 21:48 05:34 05:47 Estim Creat Clear Calc 54.6 61.6 67.2 Estimated GFR 58 > 60 > 60 Vancomycin Loading Dose: 1999 Current Vancomycin Dosing Regimen: 100 Q 12H Vancomycin Monitoring using AUC goal of 400 - 600 range with trough as surrogate marker: 515 Date and Time for next Vancomycin Level to be drawn: 05/25 2100 Pharmacist Comments on Vancomycin Plan: Vancomycin dosing will take advantage of [employer] as a clinical decision support tool that uses Bayesian modeling to calculate individual patient's pharmacokinetic parameters and forecast the patient's drug concentration time course with the target goal AUC 24 range of 400 - 600 mg/L/hr.
[2023-05-24 11:31] LABS: Glucose, Whole Blood 90 mg/dL (60-115)
--- NOTE | 2023-05-24 13:08 | PC.NURSE ---
transfer orders placed for pt to go to hospital for special care. Nurse to nurse report given to Cesilia SANCHEZ. Report given to EMS at bedside. Pts family at bedside updated on plan of care.
== END 2023-05-24 13:18 | disposition short-term general hospital (02) | DRG 871 ==
LOC: HO.ED 23:18 → HO.EDOVER 23:37 → HO.IMC 05-23 16:11
PROVIDERS: Admitting Provider Student in an Organized Health Care Education/Training Program; Emergency Provider Emergency Medicine; PCP Internal Medicine; Visit Provider Family Medicine
DX: A41.9 Sepsis, unspecified organism (principal); K75.0 Abscess of liver; K85.90 Acute pancreatitis without necrosis or infection, unspecified; K91.89 Other postprocedural complications and disorders of digestive system; E87.21 Acute metabolic acidosis; Z68.41 Body mass index [BMI] 40.0-44.9, adult; T81.43XA Infection following a procedure, organ and space surgical site, initial encounter; E87.6 Hypokalemia; E78.2 Mixed hyperlipidemia; E66.01 Morbid (severe) obesity due to excess calories; J45.40 Moderate persistent asthma, uncomplicated; Z91.040 Latex allergy status; Z79.4 Long term (current) use of insulin; Z79.899 Other long term (current) drug therapy
CPT/HCPCS: 36415; 71045; 74176; 74183; 80048; 80053; 80076; 81003; 82947; 83036; 83605; 83615; 83690; 83735; 84478; 85025; 85027; 85610; 85730; 86140; 87040; 87077; 87186; 87205; 99285; A9585; J1650; J2405; J2543; J3370

== ENCOUNTER → 2023-05-22 23:21 | Outpatient (BNV) | payer OTHER, SELFPAY | PROVIDERS: Admitting Provider Student in an Organized Health Care Education/Training Program; Emergency Provider Emergency Medicine; PCP Internal Medicine; Visit Provider Student in an Organized Health Care Education/Training Program | DX: A41.9 Sepsis, unspecified organism (principal); R65.20 Severe sepsis without septic shock; K75.0 Abscess of liver; K91.89 Other postprocedural complications and disorders of digestive system; K85.90 Acute pancreatitis without necrosis or infection, unspecified | CPT/HCPCS: 99223; 99232; 99239 ==

== ENCOUNTER → 2023-05-22 23:21 | Outpatient (BNV) | payer OTHER, SELFPAY | PROVIDERS: Admitting Provider Student in an Organized Health Care Education/Training Program; Emergency Provider Emergency Medicine; PCP Internal Medicine; Visit Provider Internal Medicine | DX: K85.90 Acute pancreatitis without necrosis or infection, unspecified (principal); K76.9 Liver disease, unspecified | CPT/HCPCS: 99222; 99232 ==

== ENCOUNTER 2023-06-10 10:32 | Outpatient (REF) | payer OTHER, SELFPAY ==
[2023-06-10 10:50] LABS: MANUAL DIFF FLAG NO
[2023-06-10 11:35] LABS: Basophils Absolute Auto 0.1 X10*3/uL (0.0-0.2); Basophils Percent Auto 1.1 % (0-2); Eosinophils Absolute Auto 0.1 X10*3/uL (0.0-0.4); Eosinophils Percent Auto 1.5 % (0-4); Hematocrit 41.1 % (37.0-47.0); Imm Gran Abs Auto 0.02 X10*3/uL (0.00-0.03); Imm Gran Pct Auto 0.3 % (0.0-0.4); Lymphocytes Absolute Auto 1.9 X10*3/uL (1.2-4.9); Lymphocytes Percent Auto 25.1 % (20-40); Mean Corpuscular HGB Conc 31.6 g/dl (31.0-35.0); Mean Corpuscular Hemoglobin 25.1 pg (27.0-33.0); Mean Corpuscular Volume 79.3 fL (80.0-98.0); Monocytes Absolute Auto 0.5 X10*3/uL (0.1-1.2); Neutrophils Absolute Auto 4.9 x10*3/uL (2.0-8.3); Platelet Count 312 X10*3/uL (160-400); Red Blood Count 5.18 X10*6/uL (4.20-5.50); Red Cell Distribution Width 15.2 % (11.0-16.0); White Blood Count 7.5 X10*3/uL (4.8-10.8)
== END 2023-06-10 10:33 | disposition home or self-care (01) ==
LOC: HO.LAB 10:32
PROVIDERS: PCP Internal Medicine; Visit Provider Internal Medicine
DX: K75.0 Abscess of liver (principal)
CPT/HCPCS: 36415; 85025

== ENCOUNTER 2023-06-20 10:16 | Outpatient (REF) | payer OTHER, SELFPAY ==
[2023-06-20 11:19] LABS: Alanine Aminotransferase 23 U/L (0-31); Albumin Level 4.2 g/dL (3.5-5.0); Alkaline Phosphatase 99 U/L (39-117); Anion Gap 19 (12-20); Aspartate Amino Transferase 22 U/L (5-31); Bilirubin Total 0.8 mg/dL (0.0-1.0); Blood Urea Nitrogen 17 mg/dL (9-16); Calcium 10.4 mg/dL (8.4-10.2); Carbon Dioxide 24 mmol/L (22-29); Chloride 103 mmol/L (96-108); Estimated Glomerular Filt Rate 37; Glucose Fasting 94 mg/dL (60-99); Potassium 4.5 mmol/L (3.3-5.1); Sodium 141 mmol/L (135-145); Total Protein 7.9 g/dL (6.5-8.0)
== END 2023-06-20 10:17 | disposition home or self-care (01) ==
LOC: HO.LAB 10:16
PROVIDERS: PCP Internal Medicine; Visit Provider Internal Medicine
DX: K75.0 Abscess of liver (principal)
CPT/HCPCS: 36415; 80053

== ENCOUNTER 2023-06-30 10:48 | Outpatient (AMB) | payer OTHER, SELFPAY ==
[2023-06-30 10:55] VITALS: BP 118/80; BMI 41.0
--- NOTE | 2023-06-30 10:55 | MHC.PC.OV ---
Vital Signs 06/30/23 10:55 Height 4 ft 11 in Weight 203 lb BMI 41.0 BP 118/80 Blood Pressure Location Lt brachial Position Sitting Intake Visit Reasons: Follow up Intake Note: Patient here for a follow up labs [employer] Required: No Accompanied by: Grand Child Allergies latex [LATEX] Allergy (Intermediate, Verified 06/30/23 11:20) RASH oxycodone Adverse Reaction (Severe, Verified 06/30/23 11:20) Itching Medication List - Last Reconciled 06/30/23 by Adrianna Richter MD acetaminophen 650 mg (2 x 325 mg) PO Q6H PRN Advair HFA 230-21 mcg/actuation (fluticasone propion-salmeterol) 2 puffs inhalation Q12H NS albuterol sulfate 90 mcg/actuation (Proair Digihaler) 2 inhalations inhalation Q4-6H PRN 30 days albuterol sulfate 2.5 mg (3 mL) inhalation Q6H PRN 30 days atorvastatin 20 mg PO DAILY 90 days cholecalciferol (vitamin D3) (Vitamin D3) 50 mcg PO DAILY cyanocobalamin (vitamin B-12) (Vitamin B-12) 1,000 mcg PO DAILY escitalopram oxalate 10 mg PO DAILY 90 days furosemide 40 mg PO DAILY insulin lispro (Humalog U-100 Insulin) See Protocol units subcut QIDACHS metoprolol succinate ER 25 mg PO DAILY 90 days miscellaneous medical supply GRAB BAR 18 miscellaneous medical supply toilet safety frame morphine 2 mg See Protocol IVPUSH Q4H PRN nebulizers (AeroEclipse II Nebulizer) As directed ondansetron HCl (PF) 4 mg (2 mL) IVPUSH Q8H PRN pantoprazole 40 mg PO BID@0630,1630 piperacillin-tazobactam 4.5 gram 4.5 grams IV Q6H sucralfate 10 mL PO QIDACHS [Vancomycin Consult Rx Dosing [Consult Rx Vancomycin Dosing] 1 ea miscellaneous DAILY] walker (Ultra-Light Rollator misc) As directed Tobacco use date assessed: 06/30/23 Fall risk assessment: No Falls in past year Last assessed Fall Risk: 06/30/23 Dental Screening Dental Screen Date: 06/30/23 Did you have a dental visit in the last 12 months?: No Did you have a dental problem in the last 6 months where you did not have access to dental care?: No Was dental information given to patient?: Patient has dentist HPI HPI Comments History of Present Illness Details This is a 67-year-old female with mild major depression and morbid obesity that comes today accompanied by granddaughter complaining of abdominal pain and decrease in appetite. She had cholecystectomy on April with postERCP acute pancreatitis and develop a liver abscess and was admitted in [facility]. Her GFR from over 16 went down to 37 in the same month. Will be referred to Nephrology due to acute kidney injury. Anemia is follow by Hematology-Oncology. She is morbidly obese with a BMI of 41 and was advised to diet and exercise to reach BMI goal less than 30. Depression stable with escitalopram. [facility] Medical History Abdominal pain Morbid obesity Gallstones Common bile duct dilation Elevated TSH Hair loss Murmur Moderate persistent asthma Morbid obesity Mild recurrent major depression B12 deficiency Hair loss Right hip pain Dyslipidemia Foot pain, bilateral Lumbar degenerative disc disease History of vitamin D deficiency History of pernicious anemia Arthritis Back pain History of trigger finger History of left bundle branch block (LBBB) On beta mel at home Breast cancer Mild aortic stenosis Sleep apnea Constipation Dizziness Tinnitus Chronic pain HTN (hypertension) Asthma Depression Surgical History History of cardiac cath Hx of bilateral cataract extraction History of total right knee replacement (TKR) History of total left knee replacement (TKR) History of dilation and curettage Hx of colonoscopy Hx of esophagogastroduodenoscopy History of lymph node dissection of left axilla S/P lumpectomy, left breast Family History Father Prostate cancer Hypertension Mother Skin cancer Dementia Diabetes Daughter Lupus Maternal Grandmother Diabetes Hypertension Maternal Grandfather No problems noted. Paternal Grandmother No problems noted. Paternal Grandfather Cancer Brother Prostate cancer Social History Household Members: Spouse and Family Household Members Other:: Graddaughter Housing: Apartment Do you presently have visiting nurse or other home services: Yes Alcohol intake: never Patient Tobacco Use Status: Never used Tobacco e-Cigarette/Vaping Use: Never Used Second Hand Smoke Exposure: No Substance Use Type: Marijuana Advance Directives Date on File: 08/05/22 service: No Current occupational status: disabled Cognitive needs: Yes Hearing needs: No Vision needs: Yes Questionnaire Thrive Questionnaire Date Thrive assessed: 05/24/23 RYANNE-7 AMB Questionnaire RYANNE-7 Date RYANNE - 7 assessed: 12/16/22 Source: Developed by Drs. Bin Islas, Stephanie Lowery, Markie Escobedo and colleagues, with an educational lo from [employer]. Review of Systems Const All systems reviewed & are unremarkable except as noted in HPI and below Eyes Reports no additional complaints, Denies change in vision and Denies other visual disturbances Card Denies chest pain at rest, Denies chest pain with activity, Denies edema, Denies irregular heart rhythm, Denies claudication, Denies dyspnea, Denies dyspnea on exertion, Denies orthopnea, Denies paroxysmal nocturnal dyspnea and Denies slow heart rate Resp Denies cough, Denies dyspnea and Denies dyspnea on exertion GI Reports abdominal pain, Denies change in bowel habits, Reports constipation, Denies excessive flatus, Denies nausea and Denies vomiting Denies urinary incontinence, Denies urinary hesitancy and Denies urinary urgency Musc Denies abnormal gait, Denies atrophy, Denies deformity and Denies limited range of motion Skin/Breast Denies bleeding lesions, Denies changing lesions and Denies rash Neuro Denies abnormal gait and Denies lack of coordination Physical exam (Primary Care) Vital Signs: Last Vital Signs BP 118/80 06/30/23 10:55 BMI result Body Mass Index 41.0 Tobacco/Smoking Status: Tobacco use Status Tobacco use date assessed 06/30/23 06/30/23 11:01 Patient Tobacco Use Status Never used Tobacco 06/30/23 11:01 e-Cigarette/Vaping Use Never Used 06/30/23 11:01 Thrive Assessment: Date of Thrive Assessment Date Thrive assessed 05/24/23 06/30/23 11:01 Eyes General: appearance normal, both eyes and all related structures Eyelids: Yes eyelids normal Conjunctivae: conjunctivae normal Neck Neck: Yes normal visual inspection and Yes supple Resp Effort & Inspection: normal respiratory effort Auscultation: clear to auscultation bilaterally Cardio Jugular venous distension: no JVD Rate: regular rate Rhythm: regular rhythm Heart sounds: S1 normal heart sound present and S2 normal heart sound present GI Inspection: Yes normal to inspection Palpation (GI): Soft to palpation and Tenderness to palpation present (GI) Auscultation: normal bowel sounds Extrem General: Yes full ROM Assessment and Plan Assessment & Plan (1) Abdominal pain: Code(s): R10.9 - Unspecified abdominal pain Plan: Referred to Gastroenterology. (2) Acute kidney injury: Code(s): N17.9 - Acute kidney failure, unspecified Plan: Referred to Nephrology. (3) Mild major depression: Code(s): F32.0 - Major depressive disorder, single episode, mild Plan: Continue escitalopram (4) Morbid obesity: Code(s): E66.01 - Morbid (severe) obesity due to excess calories Plan: Start diet and exercise. BMI goal is less than 30. Orders: Orders Vitamin D 25-OH Total Today E55.9 - Vitamin D deficiency, unspecified Lipid Panel Today E78.5 - Hyperlipidemia, unspecified Comprehensive [place]. Panel Fast Today N18.30 - Chronic kidney disease, stage 3 unspecified Referrals Nephrology Referral N17.9 - Acute kidney failure, unspecified Gastroenterology Referral K75.0 - Abscess of liver, K85.90 - Acute pancreatitis without necrosis or infection, unspecified, K91.89 - Other postprocedural complications and disorders of digestive system, R10.9 - Unspecified abdominal pain Medications: New ondansetron HCl 8 mg PO Q12H 10 days PRN 20 tabs 0RF nausea and vomiting Coding Level of Care Code Est Pt Level 4 (25940) Diagnoses Abdominal pain R10.9 Acute kidney injury N17.9 Mild major depression F32.0 Morbid obesity E66.01 Time Spent (min) 24
== END 2023-06-30 11:31 | disposition home or self-care (01) ==
PROVIDERS: PCP Internal Medicine; Visit Provider Internal Medicine
DX: N17.9 Acute kidney failure, unspecified (principal); F32.0 Major depressive disorder, single episode, mild; E66.01 Morbid (severe) obesity due to excess calories; Z68.41 Body mass index [BMI] 40.0-44.9, adult; R10.9 Unspecified abdominal pain
CPT/HCPCS: 99214

== ENCOUNTER 2023-07-22 09:39 | Outpatient (AMB) | payer OTHER, SELFPAY ==
[2023-07-22 09:41] VITALS: BP 122/84; PULSE 70; O2SAT 95; BMI 41.3
--- NOTE | 2023-07-22 09:41 | MHC.PC.OV ---
Vital Signs 07/22/23 09:41 Height 4 ft 11 in Weight 204 lb 6 oz BMI 41.3 BP 122/84 Blood Pressure Location Lt brachial Position Sitting Pulse 70 Pulse Source Pulse Oximeter Pulse Oximetry (%) 95 Oxygen Delivery Method Room Air Intake Visit Reasons: breathing issues [employer] Required: No Accompanied by: Self / Same As Patient Allergies latex [LATEX] Allergy (Intermediate, Verified 07/22/23 10:02) RASH oxycodone Adverse Reaction (Severe, Verified 07/22/23 10:02) Itching Medication List - Last Reconciled 07/22/23 by BARRY Pillai acetaminophen 650 mg (2 x 325 mg) PO Q6H PRN Advair HFA 230-21 mcg/actuation (fluticasone propion-salmeterol) 2 puffs inhalation Q12H NS albuterol sulfate 90 mcg/actuation (Proair Digihaler) 2 inhalations inhalation Q4-6H PRN 30 days albuterol sulfate 2.5 mg (3 mL) inhalation Q6H PRN 30 days atorvastatin 20 mg PO DAILY 90 days cholecalciferol (vitamin D3) (Vitamin D3) 50 mcg PO DAILY cyanocobalamin (vitamin B-12) (Vitamin B-12) 1,000 mcg PO DAILY escitalopram oxalate 10 mg PO DAILY 90 days furosemide 40 mg PO DAILY metoprolol succinate ER 25 mg PO DAILY 90 days miscellaneous medical supply GRAB BAR 18 miscellaneous medical supply toilet safety frame morphine 2 mg See Protocol IVPUSH Q4H PRN nebulizers (AeroEclipse II Nebulizer) As directed ondansetron HCl 8 mg PO Q12H PRN 10 days pantoprazole 40 mg PO BID@0630,1630 sucralfate 10 mL PO QIDACHS walker (Ultra-Light Rollator misc) As directed Tobacco use date assessed: 07/22/23 Fall risk assessment: No Falls in past year Last assessed Fall Risk: 07/22/23 Dental Screening Dental Screen Date: 07/22/23 Did you have a dental visit in the last 12 months?: Yes Did you have a dental problem in the last 6 months where you did not have access to dental care?: No Was dental information given to patient?: Patient has dentist HPI HPI Comments History of Present Illness Details 67-year-old female past medical history significant for depression, moderate persistent asthma, obesity, DORA, anemia, nonrheumatic aortic valve stenosis, left bundle branch block , CKD. Patient of Dr. Hill. Review of the notes patient called on-call provider on 07/08/2023 for asthma exacerbation patient was treated with prednisone and albuterol inhaler was refilled. Patient presents today for breathing issues. Patient last week had bad cold, chest congestion, denies fevers which flared up her asthma reported SOB and wheezing related to asthma exacerbation. Prednisone, nebulizers refilled. OTC mucinex. Patient states breathing improving, denies wheezing still having some sob. Relief with nebulizers. Patient reports last use rescue inhaler on Friday. [facility] Medical History Abdominal pain Morbid obesity Gallstones Common bile duct dilation Elevated TSH Hair loss Murmur Moderate persistent asthma Morbid obesity Mild recurrent major depression B12 deficiency Hair loss Right hip pain Dyslipidemia Foot pain, bilateral Lumbar degenerative disc disease History of vitamin D deficiency History of pernicious anemia Arthritis Back pain History of trigger finger History of left bundle branch block (LBBB) On beta mel at home Breast cancer Mild aortic stenosis Sleep apnea Constipation Dizziness Tinnitus Chronic pain HTN (hypertension) Asthma Depression Surgical History History of cardiac cath Hx of bilateral cataract extraction History of total right knee replacement (TKR) History of total left knee replacement (TKR) History of dilation and curettage Hx of colonoscopy Hx of esophagogastroduodenoscopy History of lymph node dissection of left axilla S/P lumpectomy, left breast Family History Father Prostate cancer Hypertension Mother Skin cancer Dementia Diabetes Daughter Lupus Maternal Grandmother Diabetes Hypertension Maternal Grandfather No problems noted. Paternal Grandmother No problems noted. Paternal Grandfather Cancer Brother Prostate cancer Social History Household Members: Spouse and Family Household Members Other:: Graddaughter Housing: Apartment Do you presently have visiting nurse or other home services: Yes Alcohol intake: never Patient Tobacco Use Status: Never used Tobacco e-Cigarette/Vaping Use: Never Used Second Hand Smoke Exposure: No Substance Use Type: Marijuana Advance Directives Date on File: 08/05/22 service: No Current occupational status: disabled Cognitive needs: Yes Hearing needs: No Vision needs: Yes Questionnaire PHQ-9 Over the last 2 weeks, how often have you been bothered by any of the following problems? 1. Little interest or pleasure in doing things: nearly every day 2. Feeling down, depressed, or hopeless: nearly every day 3. Trouble falling or staying asleep, or sleeping too much: more than half the days 4. Feeling tired or having little energy: nearly every day 5. Poor appetite or overeating: nearly every day 6. Feeling bad about yourself - or that you are a failure or have let yourself or your family down: more than half the days 7. Trouble concentrating on things, such as reading the newspaper or watching television: nearly every day 8. Moving or speaking so slowly that other people could have noticed. Or the opposite - being so fidgety or restless that you have been moving around a lot more than usual: nearly every day 9. Thoughts that you would be better off or of hurting yourself in some way: several days Total score: 23 Depression Screening Interpretation: Positive Depression Screening Follow-up: In treatment 18695 - PHQ-9 Billing: Yes Source: Developed by Drs. Bin Islas, Stephanie Lowery, Markie Escobedo and colleagues, with an educational lo from [employer]. Thrive Questionnaire Date Thrive assessed: 07/22/23 I am a: Patient What is your living situation today?: I have a steady place to live Within the past 12 months, did the food you bought not last and you didn't have the money to get more?: Never true Within the past 12 months, did you worry whether your food would run out before you got money to buy more?: Never true Do you have trouble paying for medicines?: No Do you have trouble getting transportation to medical appointments?: No Do you have trouble paying your heating and electricity bill?: No Do you have trouble taking care of your child, family member or friend?: No Do you have trouble with day-to-day activities such as bathing, preparing meals, shopping, managing finances, etc.?: No Are you currently unemployed and looking for a job?: No Are you interested in more education?: No Please select the resources that you would like help with: None Currently or been in a relationship where the following occur: no concerns reported AUDIT C Alcohol Use Questionnaire (AUDIT-C) 1. How often do you have a drink containing alcohol?: Never Total Score: 0 RYANNE-7 AMB Questionnaire RYANNE-7 Date RYANNE - 7 assessed: 07/22/23 Feeling nervous, anxious, or on edge: 0 = Not at all Not being able to stop or control worryin = Not at all Worrying too much about different things: 0 = Not at all Trouble relaxin = Not at all Being so restless that it is hard to sit still: 0 = Not at all Becoming easily annoyed or irritable: 0 = Not at all Feeling afraid as if something awful might happen: 0 = Not at all Total RYANNE-7 score (0-4 normal; 5-9 mild; 10-14 moderate; 15-21 severe): 0 Source: Developed by Drs. Bin Islas, Stephanie Lowery, Markie Escobedo and colleagues, with an educational lo from [employer]. Review of Systems Const Denies chills, Denies fatigue, Denies fever(s) and Denies poor appetite Eyes Denies no additional complaints ENT Reports Normal hearing present Card Denies chest pain, Denies syncope, Denies rapid heart rate and Denies dyspnea Resp Denies cough and Denies dyspnea GI Denies change in stool character, Denies constipation, Denies diarrhea, Denies nausea and Denies vomiting Denies urinary frequency, Denies dysuria and Denies urinary urgency Neuro Reports Normal hearing present, Denies confusion and Denies syncope Psych Denies confusion Endo Denies fatigue Physical exam (Primary Care) Vital Signs: Last Vital Signs Pulse 70 07/22/23 09:41 BP 122/84 07/22/23 09:41 Pulse Ox 95 07/22/23 09:41 Oxygen Delivery Method Room Air 07/22/23 09:41 BMI result Body Mass Index 41.3 Tobacco/Smoking Status: Tobacco use Status Tobacco use date assessed 07/22/23 07/22/23 09:43 Patient Tobacco Use Status Never used Tobacco 07/22/23 09:43 e-Cigarette/Vaping Use Never Used 07/22/23 09:43 PHQ-9: PHQ-9 Score PHQ-9: Total score 07/22/23 09:51 Depression Screening Interpretation: Positive Depression Screening Follow-up: In treatment Thrive Assessment: Date of Thrive Assessment Date Thrive assessed 07/22/23 07/22/23 09:43 Currently or been in a relationship where the following occur: no concerns reported Const General: No confusion Orientation/consciousness: No confusion HENMT Head: Yes normocephalic and Yes atraumatic Eyes Conjunctivae: conjunctivae normal Chest Chest palpation & inspection: normal inspection of the chest Resp Effort & Inspection: normal respiratory effort Auscultation: clear to auscultation bilaterally, no crackles, no rhonchi and no wheezes Cardio Rate: regular rate Rhythm: regular rhythm Heart sounds: S1 normal heart sound present and S2 normal heart sound present GI Inspection: Yes normal to inspection Neuro General: No confusion Cranial nerves: Yes Normal hearing present Extrem General: No edema Assessment and Plan Assessment & Plan (1) CKD (chronic kidney disease) stage 3, GFR 30-59 ml/min: Code(s): N18.30 - Chronic kidney disease, stage 3 unspecified Plan: Patient reports in the process of establishing care with Nephrology. (2) Asthma: Code(s): J45.909 - Unspecified asthma, uncomplicated Qualifiers: Asthma severity: mild Asthma persistence: persistent Asthma complication type: uncomplicated Qualified Code(s): J45.30 - Mild persistent asthma, uncomplicated Plan: Patient states completed full course prednisone using nebulizer treatments as needed. Patient states breathing has improved denies wheezing occasional shortness of breath is not require nebulizer treatments and Friday. Signs and symptoms reviewed with patient when to with PCP or seek medical attention. Patient Instructions: Keep scheduled follow-up with PCP in 3 months or follow-up sooner if needed. Coding Level of Care Code Est Pt Level 3 (41122) Diagnoses CKD (chronic kidney disease) stage 3, GFR 30-59 ml/min N18.30 Mild persistent asthma without complication J45.30 Asthma severity: mild Asthma persistence: persistent Asthma complication type: uncomplicated
== END 2023-07-22 10:06 | disposition home or self-care (01) ==
PROVIDERS: PCP Internal Medicine; Visit Provider Nurse Practitioner Family
DX: N18.30 Chronic kidney disease, stage 3 unspecified (principal); J45.30 Mild persistent asthma, uncomplicated
CPT/HCPCS: 99213

== ENCOUNTER 2023-08-08 10:49 | Inpatient (IN) | payer OTHER, SELFPAY ==
[2023-08-08] VITALS (9 sets, daily range): BP systolic 96–116; BP diastolic 20–68; PULSE 72–106; RESP 16–20; TEMP 36.1–39.3; O2SAT 94–98; BMI 41.2; BMI 42.3
--- NOTE | ~2023-08-08 | XR_ITS ---
EXAMINATION: XR CHEST CLINICAL INFORMATION: Shortness of breath. COMPARISON: 05/22/2023 TECHNIQUE: 2 views of the chest were obtained. FINDINGS: The lungs are hypoexpanded. Patchy airspace disease right lower lobe. No pleural effusion. Cardiac silhouette is unchanged. XR/XR chest 2V IMPRESSION: Right lower lobe infiltrate. Follow-up until resolution is advised.
[2023-08-08 12:38] LABS: MANUAL DIFF FLAG NO
[2023-08-08 12:41] LABS: Basophils Percent Auto 0.3 % (0-2); Eosinophils Absolute Auto 0.2 X10*3/uL (0.0-0.4); Eosinophils Percent Auto 1.3 % (0-4); Hematocrit 36.7 % (37.0-47.0); Hemoglobin 11.7 g/dl (12.0-16.0); Imm Gran Abs Auto 0.06 X10*3/uL (0.00-0.03); Imm Gran Pct Auto 0.5 % (0.0-0.4); Lymphocytes Absolute Auto 0.7 X10*3/uL (1.2-4.9); Lymphocytes Percent Auto 5.2 % (20-40); Mean Corpuscular HGB Conc 31.9 g/dl (31.0-35.0); Mean Corpuscular Hemoglobin 25.6 pg (27.0-33.0); Mean Corpuscular Volume 80.3 fL (80.0-98.0); Mean Platelet Volume 9.5 fL (9.4-12.3); Monocytes Absolute Auto 0.8 X10*3/uL (0.1-1.2); Monocytes Percent Auto 6.2 % (2-11); Neutrophils Absolute Auto 11.5 x10*3/uL (2.0-8.3); Neutrophils Percent Auto 86.5 % (45-73); Platelet Count 215 X10*3/uL (160-400); Red Blood Count 4.57 X10*6/uL (4.20-5.50); Red Cell Distribution Width 15.6 % (11.0-16.0); White Blood Count 13.3 X10*3/uL (4.8-10.8)
[2023-08-08 12:58] LABS: Alanine Aminotransferase 25 U/L (0-31); Alkaline Phosphatase 88 U/L (39-117); Anion Gap 16 (12-20); Aspartate Amino Transferase 31 U/L (5-31); Bilirubin Direct 0.8 mg/dL (0.0-0.5); Bilirubin Total 2.2 mg/dL (0.0-1.0); Blood Urea Nitrogen 17 mg/dL (9-16); Calcium 10.2 mg/dL (8.4-10.2); Carbon Dioxide 26 mmol/L (22-29); Chloride 102 mmol/L (96-108); Creatinine Clr Calc Pharmacy 55.5; Estimated Glomerular Filt Rate 58; Glucose Random 149 mg/dL (60-115); Lipase 9 U/L (8-78); Potassium 3.8 mmol/L (3.3-5.1); Sodium 140 mmol/L (135-145); Total Protein 7.5 g/dL (6.5-8.0)
[2023-08-08 16:36] LABS: Influenza A PCR NEGATIVE (Negative); Influenza B PCR NEGATIVE (Negative); Resp Syncy Virus RNA Qual PCR NEGATIVE (Negative); SARS COV2 PCR INHOUSE NEGATIVE (Negative)
[2023-08-08] MEDS: Albuterol Sulfate 2.5 MG, Albuterol Sulfate (0.083%) 2.5 MG 5 MG INHALE (17:31)
--- NOTE | 2023-08-08 17:34 | PC.NURSE ---
pt receiving nebulizer treatment by RT at this time.
[2023-08-08] MEDS: Acetaminophen 325 MG TABLET 975 MG PO (18:32)
--- NOTE | 2023-08-08 18:33 | PC.NURSE ---
PO medication administered per provider order. IV medication delayed d/t pt being hard stick. this RN attempted to start IV/obtain labs twice but was unsuccessful. will have another RN try.
--- NOTE | 2023-08-08 18:34 | ED.GENADULT ---
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 She reports her symptoms started yesterday. She also endorses fevers, chills Patient reports coughing up bloody sputum since yesterday She has a history of asthma Patient reports using inhalers at home as prescribed without any improvement She was apparently 88% on room air for EMS At this time my evaluation she is 93-95% on room air Patient denies any chest pain or reports that she has pain in her right mid back Related Data Home Medications Medication Instructions Recorded Confirmed pantoprazole 40 mg tablet,delayed 40 mg PO BID@0630,1630 05/23/23 07/22/23 release sucralfate 100 mg/mL oral 10 ml PO QIDACHS 05/23/23 07/22/23 suspension furosemide 40 mg tablet 40 mg PO DAILY 06/30/23 07/22/23 Previous Rx's Medication Instructions Recorded miscellaneous medical supply #1 ea 11/08/20 miscellaneous medical supply #1 ea 11/08/20 walker (Ultra-Light Rollator misc) #1 ea 11/08/20 albuterol sulfate 90 mcg/actuation 2 inh inhalation Q4-6H PRN 10/05/21 breath activated powder shortness of breath or wheezing 30 inhaler,sensor (Proair Digihaler) days #1 ea nebulizers (AeroEclipse II #1 ea 09/04/22 Nebulizer) metoprolol succinate 25 mg 25 mg PO DAILY 90 days #90 tabs 11/03/22 tablet,extended release 24 hr cyanocobalamin (vitamin B-12) 1,000 mcg PO DAILY #90 tabs 12/07/22 1,000 mcg tablet (Vitamin B-12) cholecalciferol (vitamin D3) 50 50 mcg PO DAILY #30 tabs 02/16/23 mcg (2,000 unit) tablet (Vitamin D3) atorvastatin 20 mg tablet 20 mg PO DAILY 90 days #90 tabs 04/06/23 escitalopram oxalate 10 mg tablet 10 mg PO DAILY 90 days #90 tabs 05/07/23 acetaminophen 325 mg tablet 650 mg (2 x 325 mg) PO Q6H PRN 05/24/23 Pain, Mild (Pain Scale 1-3) #1 tab morphine 4 mg/mL intravenous 2 mg IVPUSH Q4H PRN Pain, Severe 05/24/23 syringe (Pain Scale 7-10) #1 mL Advair HFA 230 mcg-21 2 puff inhalation Q12H #12 ea 06/30/23 mcg/actuation aerosol inhaler (fluticasone propion-salmeterol) ondansetron HCl 8 mg tablet 8 mg PO Q12H PRN nausea and 06/30/23 vomiting 10 days #20 tabs albuterol sulfate 2.5 mg/3 mL 2.5 mg (3 mL) inhalation Q6H PRN 07/08/23 (0.083 %) solution for nebulization bronchospasm 30 days #75 mL Allergies Allergy/AdvReac Type Severity Reaction Status Date / Time latex [LATEX] Allergy Intermediate RASH Verified 08/08/23 10:56 oxycodone AdvReac Severe Itching Verified 08/08/23 10:56 Review of Systems Constitutional: Constitutional: Reports chills, Reports fever(s) and Reports weakness Eyes: Eyes: Denies blurry vision Cardiovascular: Cardiovascular: Denies chest pain and Reports dyspnea Respiratory: Respiratory: Reports cough, Reports hemoptysis and Reports dyspnea Gastrointestinal: Gastrointestinal: Denies abdominal pain, Reports nausea and Reports vomiting Musculoskeletal: Musculoskeletal: Denies back pain Integumentary/Breasts: Skin/Breast: Denies rash Neurologic: Reports weakness PMFSH Past Medical History Medical History Abdominal pain Morbid obesity Gallstones Common bile duct dilation Elevated TSH Hair loss Murmur Moderate persistent asthma Morbid obesity Mild recurrent major depression B12 deficiency Hair loss Right hip pain Dyslipidemia Foot pain, bilateral Lumbar degenerative disc disease History of vitamin D deficiency History of pernicious anemia Arthritis Back pain History of trigger finger History of left bundle branch block (LBBB) On beta mel at home Breast cancer Mild aortic stenosis Sleep apnea Constipation Dizziness Tinnitus Chronic pain HTN (hypertension) Asthma Depression Surgical History History of cardiac cath Hx of bilateral cataract extraction History of total right knee replacement (TKR) History of total left knee replacement (TKR) History of dilation and curettage Hx of colonoscopy Hx of esophagogastroduodenoscopy History of lymph node dissection of left axilla S/P lumpectomy, left breast Family History Family History Father Prostate cancer Hypertension Mother Skin cancer Dementia Diabetes Daughter Lupus Maternal Grandmother Diabetes Hypertension Maternal Grandfather No problems noted. Paternal Grandmother No problems noted. Paternal Grandfather Cancer Brother Prostate cancer Social History Social History Household Members: Spouse and Family Household Members Other:: Graddaughter Housing: Apartment Do you presently have visiting nurse or other home services: Yes Alcohol intake: never Patient Tobacco Use Status: Never used Tobacco Smoked in Last 30 Days: No e-Cigarette/Vaping Use: Never Used Second Hand Smoke Exposure: No Use of substances other than those prescribed or required for medical reasons: Yes Substance Use Type: Marijuana Advance Directives: Yes Advance Directives on File: Yes Advance Directives Date on File: 08/05/22 service: No Current occupational status: disabled Cognitive needs: Yes Hearing needs: No Vision needs: Yes Physical Exam ED Vital Signs: Vital Signs - 24 hr 08/08/23 10:58 08/08/23 15:16 08/08/23 17:12 Temperature 98 F 99.1 F Pulse Rate 106 H 100 97 Respiratory Rate 19 20 16 Blood Pressure 98/20 L 101/68 116/58 L Pulse Oximetry 98 97 94 Oxygen Delivery Method Room Air Nasal Cannula Room Air Oxygen Flow Rate 08/08/23 17:32 08/08/23 19:03 08/08/23 19:25 Temperature 102.8 F H Pulse Rate 94 99 98 Respiratory Rate 18 18 18 Blood Pressure 96/55 L Pulse Oximetry 94 95 Oxygen Delivery Method Nasal Cannula Nasal Cannula Oxygen Flow Rate 2 2 BMI result Body Mass Index 41.2 Const General: healthy appearing, comfortable, no acute distress, alert and awake Nutritional Appearance: well nourished Orientation/consciousness: patient oriented x3 HENMT Head: Yes normocephalic and Yes atraumatic Eyes Eyelids: Yes eyelids normal Conjunctivae: conjunctivae normal Sclerae: sclerae normal Corneas: corneas normal Pupils: Equal, round and reactive pupils present EOM: EOMs intact bilaterally Neck Neck: Yes full ROM Resp Auscultation: wheezes expiratory wheezes Cardio Rate: regular rate Rhythm: regular rhythm GI Inspection: No distended Palpation (GI): Soft to palpation, not firm, nontender, no guarding and not rigid Skin General skin exam: no rashes or lesions noted and elasticity normal Neuro General: patient oriented x3 Cranial nerves: Yes CN's II-XII intact bilaterally, Yes Equal, round and reactive pupils present and Yes Bilaterally intact EOM present Cognition (Neuro): normal cognition Extrem Other: Moving all extremities well without any obvious deformities Course Reevaluation(s) Reevaluation #1: Patient spiked a temperature as high as 102.8?, she became hypotensive 96/55. She has already been ordered acetaminophen for the fever and IV fluids. Will get a close eye on the blood pressure. However given that she is not appearing septic, we will admit the patient to medical service. Time: 19:35 Medications Administered Discontinued Medications Generic Name Dose Route Start Last Admin Trade Name Freq PRN Reason Stop Dose Admin Acetaminophen 975 mg 08/08/23 17:17 08/08/23 18:32 Acetaminophen 325 Mg Tablet PO 08/08/23 17:18 975 mg ONCE ONE Administration Albuterol Sulfate 2.5 mg/ 5 mg 08/08/23 17:27 08/08/23 17:31 Albuterol Sulfate 2.5 mg INHALE 08/08/23 17:28 5 mg ONCE ONE Administration Ceftriaxone Sodium 1 gm/ 50 mls @ 100 mls/hr 08/08/23 17:17 08/08/23 19:23 Sodium Chloride IV 08/08/23 17:46 100 mls/hr ONCE ONE Administration Azithromycin 500 mg/ Sodium 250 mls @ 125 mls/hr 08/08/23 17:17 08/08/23 19:23 Chloride IV 08/08/23 19:16 125 mls/hr ONCE ONE Administration Sodium Chloride 1,000 mls @ 999 mls/hr 08/08/23 17:30 08/08/23 19:23 Ns IV 08/08/23 18:30 999 mls/hr .Q1H1M SADIA Administration Methylprednisolone Sodium Succinate 125 mg 08/08/23 17:17 08/08/23 19:23 Methylprednisolone Sod Succ 125 Mg/2 Ml Vial IVPUSH 08/08/23 17:18 125 mg ONCE ONE Administration Medical Decision Making Medical Decision Making [facility] Narrative: 67-year-old female presents for evaluation of shortness of breath, sure broad workup that included chest x-ray, labs including blood cultures. She was found to have right lower lobe pneumonia on x-ray. She was given a nebulizer treatment, steroids, IV antibiotics as well as a L of IV fluids. Differential Diagnosis Differential Diagnoses: The differential diagnosis associated with the presentation includes Asthma exacerbation Bronchitis Pneumonia Upper respiratory infection Back pain COVID-19 Viral syndrome Admission/Observation Consideration of admission/observation: Escalation of care including admission/observation considered Consult Healthcare Provider Management of the patient was discussed with: Hospitalist Lab Data [facility] Lab Attestation statement: I reviewed the patient's lab results. Leukocytosis to 13.3 with a left shift, mild anemia with a hemoglobin 11.7 hematocrit 36.7. Significant electrolyte abnormalities. 08/08/23 12:34 08/08/23 12:34 Labs: Lab Results 08/08/23 08/08/23 Range/Units 12:34 15:32 WBC 13.3 H (4.8-10.8) X10*3/uL RBC 4.57 (4.20-5.50) X10*6/uL Hgb 11.7 L (12.0-16.0) g/dl Hct 36.7 L (37.0-47.0) % MCV 80.3 (80.0-98.0) fL MCH 25.6 L (27.0-33.0) pg MCHC 31.9 (31.0-35.0) g/dl RDW 15.6 (11.0-16.0) % Plt Count 215 D (160-400) X10*3/uL MPV 9.5 (9.4-12.3) fL Immature Gran % (Auto) 0.5 H (0.0-0.4) % Neut % (Auto) 86.5 H (45-73) % Lymph % (Auto) 5.2 L (20-40) % [place] % (Auto) 6.2 (2-11) % Eos % (Auto) 1.3 (0-4) % Baso % (Auto) 0.3 (0-2) % Lymph # (Auto) 0.7 L (1.2-4.9) X10*3/uL [place] # (Auto) 0.8 (0.1-1.2) X10*3/uL Eos # (Auto) 0.2 (0.0-0.4) X10*3/uL Baso # (Auto) 0.0 (0.0-0.2) X10*3/uL Abs Immat Gran (auto) 0.06 H (0.00-0.03) X10*3/uL Absolute Neuts (auto) 11.5 H (2.0-8.3) x10*3/uL Absolute Nucleated RBC 0.000 (0.0-0.012) X10*3/uL Nucleated RBC % (auto) 0.0 (0.0-0.2) /100WBC Sodium 140 (135-145) mmol/L Potassium 3.8 (3.3-5.1) mmol/L Chloride 102 (96-108) mmol/L Carbon Dioxide 26 (22-29) mmol/L Anion Gap 16 (12-20) BUN 17 H (9-16) mg/dL Creatinine 0.95 (0.5-1.4) mg/dL Estim Creat Clear Calc 55.5 Estimated GFR 58 Random Glucose 149 H (60-115) mg/dL Calcium 10.2 (8.4-10.2) mg/dL Total Bilirubin 2.2 H (0.0-1.0) mg/dL Direct Bilirubin 0.8 H (0.0-0.5) mg/dL AST 31 (5-31) U/L ALT 25 (0-31) U/L Alkaline Phosphatase 88 (39-117) U/L Total Protein 7.5 (6.5-8.0) g/dL Albumin 4.0 (3.5-5.0) g/dL Lipase 9 (8-78) U/L Influenza Type A (PCR) NEGATIVE (Negative) Influenza Type B (PCR) NEGATIVE (Negative) RSV RNA Qual (PCR) NEGATIVE (Negative) SARS-CoV-2 RNA (RT-PCR) NEGATIVE (Negative) Independent Interpretation I performed an independent interpretation of an: Plain X-Ray (Right lower lobe pneumonia) Radiology Impression Discussion of test interpretation with radiology: I have reviewed the radiologist's reading. (Right lower lobe infiltrate) Discharge Plan Discharge Clinical Impression: Right lower lobe pneumonia Patient Disposition: Admitted As Inpatient Prescriptions: No Action (DME) miscellaneous medical supply Misc See Rx Instructions .ROUTE .MEDSUPPLY Qty: 1 0RF Rx Instructions: GRAB BAR 18 (DME) miscellaneous medical supply Misc See Rx Instructions .ROUTE .MEDSUPPLY Qty: 1 0RF Rx Instructions: toilet safety frame (DME) Ultra-Light Rollator Misc See Rx Instructions .ROUTE .MEDSUPPLY Qty: 1 0RF Rx Instructions: As directed Proair Digihaler 90 mcg/actuation aero powdr breath act w/sensor 2 inh inhalation Q4-6H PRN (Reason: shortness of breath or wheezing) 30 Days Qty: 1 6RF (DME) nebulizers [AeroEclipse II Nebulizer] Misc See Rx Instructions .Route Qty: 1 0RF Rx Instructions: As directed metoprolol succinate 25 mg tablet extended release 24 hr 25 mg PO DAILY 90 Days Qty: 90 3RF cyanocobalamin (vitamin B-12) [Vitamin B-12] 1,000 mcg tablet 1,000 mcg PO DAILY Qty: 90 1RF cholecalciferol (vitamin D3) [Vitamin D3] 50 mcg (2,000 unit) tablet 50 mcg PO DAILY Qty: 30 5RF atorvastatin 20 mg tablet 20 mg PO DAILY 90 Days Qty: 90 3RF escitalopram oxalate 10 mg tablet 10 mg PO DAILY 90 Days Qty: 90 1RF Advair HFA 230-21 mcg/actuation HFA aerosol inhaler 2 puff inhalation Q12H Qty: 12 6RF albuterol sulfate 2.5 mg /3 mL (0.083 %) solution for nebulization 2.5 mg inhalation Q6H PRN (Reason: bronchospasm) 30 Days Qty: 75 1RF sucralfate 100 mg/mL suspension 10 ml PO QIDACHS pantoprazole 40 mg tablet,delayed release (DR/EC) 40 mg PO BID@0630,1630 acetaminophen 325 mg Tablet 650 mg PO Q6H PRN (Reason: Pain, Mild (Pain Scale 1-3)) Qty: 1 0RF morphine 4 mg/mL Syringe 2 mg IVPUSH Q4H PRN (Reason: Pain, Severe (Pain Scale 7-10)) Qty: 1 0RF Protocol: Hold for RR < HOLD and contact provider for RR < (bpm): 12 Rx Instructions: Partial Fill upon patient request. furosemide 40 mg tablet 40 mg PO DAILY ondansetron HCl 8 mg tablet 8 mg PO Q12H PRN (Reason: nausea and vomiting) 10 Days Qty: 20 0RF
--- NOTE | 2023-08-08 18:58 | PC.NURSE ---
REBEKAH Rodarte attempting to obtain IV access via ultrasound guidance after this RN and another RN were unsuccessful. will administer medications when able.
[2023-08-08] MEDS: cefTRIAXone sodium 1 GM in 0.9 % Sodium Chloride 50 ML IV (19:23)
[2023-08-08] MEDS: 0.9 % Sodium Chloride 1,000 ML 999 ML IV (19:23)
[2023-08-08] MEDS: methylPREDNISolone Sod Succ 125 MG/2 ML VIAL IVPUSH (19:23)
[2023-08-08] MEDS: Azithromycin 500 MG in 0.9 % Sodium Chloride 250 ML 125 MG IV (19:23)
--- NOTE | 2023-08-08 19:29 | ECG_ITS ---
Test Reason : Nausea/Vomit Blood Pressure : / mmHG Vent. Rate : 095 BPM Atrial Rate : 095 BPM P-R Int : 158 ms QRS Dur : 144 ms QT Int : 396 ms P-R-T Axes : 061 006 179 degrees QTc Int : 497 ms Normal sinus rhythm Left bundle branch block Abnormal ECG When compared with ECG of 24-APR-2023 21:39, No significant changes seen Referred By: Clemente Sesay Electronically Signed By:JOSSELINE SALAZAR MD
[2023-08-08 19:39] LABS: ~Lactic Acid-LAB USE ONLY 1.4 mmol/L (0.5-2.0)
--- NOTE | 2023-08-08 19:50 | P.HPHOSP_ITS ---
History of Present Illness Date of Service: 08/08/23 Chief Complaint: Dyspnea This is a 67-year-old female with pertinent history of mood disorder, essential hypertension, asthma not on home oxygen, mixed hyperlipidemia who presents to the emergency department for evaluation of dyspnea. Patient states it started 1 day prior to presentation. She has been having dyspnea, worse with ambulation and progressive. Also has been having productive cough. Admits fevers and chills. No sick contacts. Patient denies chest discomfort, palpitations, nausea, vomiting, abdominal pain, changes in urinary or bowel habits. Admits generalized malaise and fatigue. In the emergency department, patient was found to be septic and imaging concerning for pneumonia. Review of Systems 2 Constitutional: Constitutional: Reports fatigue, Reports lethargy and Reports weakness Cardiovascular: Cardiovascular: Reports dyspnea on exertion Respiratory: Respiratory: Reports cough and Reports dyspnea on exertion Gastrointestinal: Gastrointestinal: Reports no additional gastrointestinal complaints Genitourinary: Genitourinary: Reports no additional female genitourinary complaints Neurologic: Reports weakness Endocrine: Endocrine: Reports fatigue [facility] Medical History Abdominal pain Morbid obesity Gallstones Common bile duct dilation Elevated TSH Hair loss Murmur Moderate persistent asthma Morbid obesity Mild recurrent major depression B12 deficiency Hair loss Right hip pain Dyslipidemia Foot pain, bilateral Lumbar degenerative disc disease History of vitamin D deficiency History of pernicious anemia Arthritis Back pain History of trigger finger History of left bundle branch block (LBBB) On beta mel at home Breast cancer Mild aortic stenosis Sleep apnea Constipation Dizziness Tinnitus Chronic pain HTN (hypertension) Asthma Depression Family History Father Prostate cancer Hypertension Mother Skin cancer Dementia Diabetes Daughter Lupus Maternal Grandmother Diabetes Hypertension Maternal Grandfather No problems noted. Paternal Grandmother No problems noted. Paternal Grandfather Cancer Brother Prostate cancer Surgical History History of cardiac cath Hx of bilateral cataract extraction History of total right knee replacement (TKR) History of total left knee replacement (TKR) History of dilation and curettage Hx of colonoscopy Hx of esophagogastroduodenoscopy History of lymph node dissection of left axilla S/P lumpectomy, left breast Social History Household Members: Spouse and Family Household Members Other:: Graddaughter Housing: Apartment Do you presently have visiting nurse or other home services: Yes Alcohol intake: never Patient Tobacco Use Status: Never used Tobacco Smoked in Last 30 Days: No e-Cigarette/Vaping Use: Never Used Second Hand Smoke Exposure: No Use of substances other than those prescribed or required for medical reasons: Yes Substance Use Type: Marijuana Advance Directives: Yes Advance Directives on File: Yes Advance Directives Date on File: 08/05/22 service: No Current occupational status: disabled Cognitive needs: Yes Hearing needs: No Vision needs: Yes Meds Allergies Allergy/AdvReac Type Severity Reaction Status Date / Time latex [LATEX] Allergy Intermediate RASH Verified 08/08/23 10:56 oxycodone AdvReac Severe Itching Verified 08/08/23 10:56 Home Medications Medication Instructions Recorded Confirmed Last Taken Type pantoprazole 40 mg tablet,delayed 40 mg PO BID@0630,1630 05/23/23 07/22/23 05/22/23 History release sucralfate 100 mg/mL oral 10 ml PO QIDACHS 05/23/23 07/22/23 05/22/23 History suspension furosemide 40 mg tablet 40 mg PO DAILY 06/30/23 07/22/23 Unknown History Physical Exam 2 Vital Signs and Narrative: Vital Signs: Last Vital Signs Temp 102.8 F H 08/08/23 19:03 Pulse 98 08/08/23 19:25 Resp 18 08/08/23 19:25 BP 96/55 L 08/08/23 19:25 Pulse Ox 95 08/08/23 19:25 O2 Del Method Nasal Cannula 08/08/23 19:25 O2 Flow Rate 2 08/08/23 19:25 Oxygen Flow Rate 2 08/08/23 15:16 BMI result Body Mass Index 41.2 Middle-aged male lying in bed in mild distress on supplemental oxygen Neck supple, no JVD Regular rate and rhythm, S1-S2 heard Right-sided crackles without wheezing Abdomen soft nontender, no guarding, no rigidity Patient is awake, alert and oriented to self, place, time and person ; no focal motor deficit Psych: Normal mood No pedal edema Results Labs 08/08/23 12:34 08/08/23 12:34 Labs: Laboratory Results - last 24 hr 08/08/23 08/08/23 08/08/23 12:34 15:32 19:19 MCV 80.3 MCH 25.6 L MCHC 31.9 RDW 15.6 Plt Count 215 D MPV 9.5 Immature Gran % (Auto) 0.5 H Neut % (Auto) 86.5 H Lymph % (Auto) 5.2 L [place] % (Auto) 6.2 Eos % (Auto) 1.3 Baso % (Auto) 0.3 Lymph # (Auto) 0.7 L [place] # (Auto) 0.8 Eos # (Auto) 0.2 Baso # (Auto) 0.0 Abs Immat Gran (auto) 0.06 H Absolute Neuts (auto) 11.5 H Absolute Nucleated RBC 0.000 Nucleated RBC % (auto) 0.0 Anion Gap 16 Estim Creat Clear Calc 55.5 Estimated GFR 58 Random Glucose 149 H Lactic Acid F/U @ 2Hr 1.4 Calcium 10.2 Total Bilirubin 2.2 H Direct Bilirubin 0.8 H AST 31 ALT 25 Alkaline Phosphatase 88 Total Protein 7.5 Albumin 4.0 Lipase 9 Influenza Type A (PCR) NEGATIVE Influenza Type B (PCR) NEGATIVE RSV RNA Qual (PCR) NEGATIVE SARS-CoV-2 RNA (RT-PCR) NEGATIVE Imaging Radiologist's Impressions: Impressions Chest X-Ray 08/08/23 16:25 IMPRESSION: Right lower lobe infiltrate. Follow-up until resolution is advised. Assessment and Plan (1) Right lower lobe pneumonia: Status: Acute Plan This is a 67-year-old female with pertinent history of mood disorder, essential hypertension, asthma not on home oxygen, mixed hyperlipidemia who presents to the emergency department for evaluation of dyspnea. #. Acute hypoxemic respiratory failure and sepsis secondary to right-sided pneumonia: Will admit patient and initiate empiric antibiotics for community- acquired pneumonia. Monitor supplemental oxygen and wean as tolerated. Maintain oxygen saturation greater than 90%. Resuscitated with IV crystalloids. Lactic acid and blood culture obtained. Sputum culture pending #.? Essential hypertension.? Hold home antihypertensives in the setting of sepsis. Resume as appropriate #.? Asthma.? No exacerbation of admission.? Continue home inhaler #.? Mixed hyperlipidemia.? On statin #.? Morbid obesity.? Counseled regarding diet and exercise Med rec pending DVT prophylaxis.?Lovenox Full code Admit as inpatient and will require two night minimum hospital stay for IV antibiotics and supplemental oxygen Time Spent With Patient Time: Total time managing care of this patient today ____ minutes. Quality Stroke Does the patient have a stroke diagnosis?: No VTE Prior VTE?: No VTE Risk Level:: Medical - moderate - high VTE Device Contraindication: Treatment Not Indicated VTE Drug Contraindication: N/A - Med Ordered
--- NOTE | 2023-08-08 20:12 | PC.NURSE ---
attempted to give report to RN - RN unavailable at this time. will try again shortly.
[2023-08-08] MEDS: Enoxaparin Sodium 40 MG/0.4 ML SYRINGE SUBCUT (20:28)
--- NOTE | 2023-08-08 20:44 | PC.NURSE ---
2nd time attempting to give report but unsuccessful at this time.
--- NOTE | 2023-08-08 22:00 | PHA.MEDREC ---
Pharmacy Consult ? Medication Reconciliation Pharmacy has completed the medication reconciliation.
[2023-08-08] MEDS: Acetaminophen 325 MG TABLET 650 MG PO (23:16)
[2023-08-08] MEDS: Melatonin 3 MG TABLET 6 MG PO (23:16)
[2023-08-09 04:00] VITALS: BP 120/57; PULSE 60; RESP 16; TEMP 36; O2SAT 96
[2023-08-09 05:46] LABS: Hematocrit 35.3 % (37.0-47.0); Hemoglobin 10.9 g/dl (12.0-16.0); Mean Corpuscular HGB Conc 30.9 g/dl (31.0-35.0); Mean Platelet Volume 9.8 fL (9.4-12.3); Platelet Count 191 X10*3/uL (160-400); Red Blood Count 4.36 X10*6/uL (4.20-5.50); Red Cell Distribution Width 15.6 % (11.0-16.0); White Blood Count 15.9 X10*3/uL (4.8-10.8)
[2023-08-09 06:04] LABS: Anion Gap 14 (12-20); Blood Urea Nitrogen 20 mg/dL (9-16); Calcium 9.8 mg/dL (8.4-10.2); Carbon Dioxide 24 mmol/L (22-29); Chloride 105 mmol/L (96-108); Creatinine Clr Calc Pharmacy 55.2; Estimated Glomerular Filt Rate 57; Glucose Random 275 mg/dL (60-115); Potassium 3.5 mmol/L (3.3-5.1); Sodium 139 mmol/L (135-145)
[2023-08-09 06:09] LABS: Atypical Lymph Absolute Manual 0.2 x10*3/uL; Atypical Lymphs Percent Manual 1 % (0-6); Band Neutrophils Percent 25 % (3-5); Lymphocytes Absolute Manual 1.1 X10*3/uL (1.2-4.9); Lymphocytes Percent Manual 7 % (20-40); Metamyelocytes Absolute 0.2 X10*3/uL; Metamyelocytes Percent 1 %; Monocytes Absolute Manual 0.5 X10*3/uL (0.1-1.2); Monocytes Percent Manual 3 % (2-11); Neutrophils Percent Manual 63 % (45-73)
[2023-08-09 06:10] LABS: Microcytosis 1+ (5-14) /OIF; Platelet Estimate NORMAL (NORMAL); Platelet Morphology Comment NORMAL; RBC Morphology NOTED; Toxic Vacuolation PRESENT
[2023-08-09 07:18] VITALS: BP 117/61; PULSE 64; RESP 20; TEMP 36; O2SAT 95
[2023-08-09 07:38] LABS: Appearance Urine Clear; Color Urine Yellow; Glucose Urine UA 250 mg/dL (Negative); Leukocyte Esterase Urine Negative (Negative); Nitrite Urine Negative (Negative); PH 5.5 (5.0-9.0); Specific Gravity - Urine 1.025 (1.005-1.025); Urine Blood Negative (Negative); Urine Ketones Negative (Negative); Urine Protein Trace mg/dL (Neg-Trace)
[2023-08-09] MEDS: 0.9 % Sodium Chloride Flush 3 ML SYRINGE IVFLUSH ×3 (08:21→19:50)
[2023-08-09] MEDS: Metoprolol Succinate ER 25 MG TAB.ER.24H PO (08:21)
[2023-08-09] MEDS: Atorvastatin Calcium 20 MG TABLET PO (08:22)
[2023-08-09] MEDS: Cyanocobalamin (Vitamin B-12) 1,000 MCG TABLET 1000 MCG PO (08:22)
[2023-08-09] MEDS: Escitalopram Oxalate 10 MG TABLET PO (08:22)
[2023-08-09] MEDS: Furosemide 20 MG TABLET PO (08:22)
--- NOTE | 2023-08-09 11:23 | MHC.CM.PN ---
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 GOAL FOR DC IS HOME ONCE MEDICALLY CLEARED. PT VERFIES PCP AND HCP ON FILE ARE CORRECT AND PT HAS RECEIVED Nekted X3.
--- NOTE | 2023-08-09 13:54 | P.PNIM_ITS ---
Subjective Subjective Date of Service: 08/09/23 Interval History: Acute hypoxemic respiratory failure and sepsis secondary to right-sided pneumonia. Review of Systems Shortness of breath seems similar to yesterday, has cough No fever or chills Physical Exam 2 Vital Signs: Vital Signs: Last Vital Signs Temp 96.8 F 08/09/23 07:18 Pulse 64 08/09/23 07:18 Resp 20 08/09/23 07:18 BP 117/61 08/09/23 07:18 Pulse Ox 95 08/09/23 07:18 O2 Del Method Nasal Cannula 08/09/23 07:18 O2 Flow Rate 2 08/09/23 07:18 Oxygen Flow Rate 2 08/08/23 15:16 BMI result Body Mass Index 42.3 Appearance: Alert.? Oriented X3.? cvs: [id number], [id number] , no murmur res: air entry diminshed ,right side >left . abd: no rebound or guarding ,nt, bs present. ext pulses present , no cyanosis . neuro: axo3 , nonfocal. Objective Data Active Medications Acetaminophen (Acetaminophen 325 Mg Tablet) 650 mg PO Q6H PRN PRN Reason: Pain, Mild (Pain Scale 1-3) Last Admin: 08/08/23 23:16 Dose: 650 mg Documented By: GEORGE Albuterol Sulfate (Albuterol Sulfate (0.083%) 2.5 Mg/3 Ml Vial.Neb) 2.5 mg INHALE Q6H PRN PRN Reason: bronchospasm Albuterol Sulfate (Albuterol Sulfate 90 Mcg 8 Gm Inhaler) 2 puff INHALE Q4H PRN PRN Reason: shortness of breath or wheezing Atorvastatin Calcium (Atorvastatin Calcium 20 Mg Tablet) 20 mg PO DAILY [facility] Last Admin: 08/09/23 08:22 Dose: 20 mg Documented By: LISA Cyanocobalamin (Cyanocobalamin (Vitamin B-12) 1,000 Mcg Tablet) 1,000 mcg PO DAILY [facility] Last Admin: 08/09/23 08:22 Dose: 1,000 mcg Documented By: LISA Enoxaparin Sodium (Enoxaparin Sodium 40 Mg/0.4 Ml Syringe) 40 mg SUBCUT Q24H [facility] Last Admin: 08/08/23 20:28 Dose: 40 mg Documented By: CARMEN Escitalopram Oxalate (Escitalopram Oxalate 10 Mg Tablet) 10 mg PO DAILY [facility] Last Admin: 08/09/23 08:22 Dose: 10 mg Documented By: LISA Fluticasone/Vilanterol (Fluticasone/Vilanterol 200/25 Blst.W.Dev) 1 puff INHALE RDAILY [facility] Last Admin: 08/09/23 08:44 Dose: Not Given Documented By: REBEKAH Non-Admin Reason: Med Not Available Furosemide (Furosemide 20 Mg Tablet) 20 mg PO DAILY [facility]; Protocol Last Admin: 08/09/23 08:22 Dose: 20 mg Documented By: LISA Ceftriaxone Sodium 1 gm/ (Sodium Chloride) 50 mls @ 100 mls/hr IV Q24H [facility] Azithromycin 500 mg/ Sodium (Chloride) 250 mls @ 125 mls/hr IV Q24H [facility] Melatonin (Melatonin 3 Mg Tablet) 6 mg PO BEDTIME PRN PRN Reason: Insomnia Last Admin: 08/08/23 23:16 Dose: 6 mg Documented By: GEORGE Metoprolol Succinate (Metoprolol Succinate Er 25 Mg Tab.Er.24h) 25 mg PO DAILY [facility]; Protocol Last Admin: 08/09/23 08:21 Dose: 25 mg Documented By: LISA Ondansetron HCl (Ondansetron Hcl 4 Mg/2 Ml Vial) 4 mg IVPUSH Q8H PRN PRN Reason: Nausea and Vomiting Sodium Chloride (0.9 % Sodium Chloride Flush 3 Ml Syringe) 3 ml IVFLUSH QSHIFT [facility] Last Admin: 08/09/23 08:21 Dose: 3 ml Documented By: LISA Vitamin D (Cholecalciferol (Vitamin D3) 25 Mcg Tablet) 50 mcg PO DAILY [facility] Last Admin: 08/09/23 08:27 Dose: Not Given Documented By: LISA Non-Admin Reason: pt refused Labs 08/09/23 05:07 08/09/23 05:07 Labs: Laboratory Results - last 24 hr 08/08/23 08/08/23 08/09/23 15:32 19:19 05:07 MCV 81.0 MCH 25.0 L MCHC 30.9 L RDW 15.6 Plt Count 191 MPV 9.8 Immature Gran % (Auto) Cancelled Neut % (Auto) Cancelled Lymph % (Auto) Cancelled [place] % (Auto) Cancelled Eos % (Auto) Cancelled Baso % (Auto) Cancelled Lymph # (Auto) Cancelled [place] # (Auto) Cancelled Eos # (Auto) Cancelled Baso # (Auto) Cancelled Abs Immat Gran (auto) Cancelled Absolute Neuts (auto) Cancelled Absolute Nucleated RBC 0.000 Nucleated RBC % (auto) 0.0 Neutrophils % (Manual) 63 Band Neutrophils % 25 H Lymphocytes % (Manual) 7 L Atypical Lymphs % (Man) 1 Monocytes % (Manual) 3 Metamyelocytes % 1 Abs Neuts (Manual) 14.0 H Lymphocytes # (Manual) 1.1 L Atyp Lymphs # (Manual) 0.2 Monocytes # (Manual) 0.5 Metamyelocytes # 0.2 Toxic Vacuolation PRESENT Platelet Estimate NORMAL Plt Morphology Comment NORMAL RBC Morphology NOTED Microcytosis 1+ (5-14) Anion Gap 14 Estim Creat Clear Calc 55.2 Estimated GFR 57 Random Glucose 275 H Lactic Acid F/U @ 2Hr 1.4 Calcium 9.8 Urine Color Urine Appearance Urine pH Ur Specific [place] Urine Protein Urine Glucose (UA) Urine Ketones Urine Blood Urine Nitrite Ur Leukocyte Esterase Influenza Type A (PCR) NEGATIVE Influenza Type B (PCR) NEGATIVE RSV RNA Qual (PCR) NEGATIVE SARS-CoV-2 RNA (RT-PCR) NEGATIVE 08/09/23 06:42 MCV MCH MCHC RDW Plt Count MPV Immature Gran % (Auto) Neut % (Auto) Lymph % (Auto) [place]rie % (Auto) Eos % (Auto) Baso % (Auto) Lymph # (Auto) [place]rie # (Auto) Eos # (Auto) Baso # (Auto) Abs Immat Gran (auto) Absolute Neuts (auto) Absolute Nucleated RBC Nucleated RBC % (auto) Neutrophils % (Manual) Band Neutrophils % Lymphocytes % (Manual) Atypical Lymphs % (Man) Monocytes % (Manual) Metamyelocytes % Abs Neuts (Manual) Lymphocytes # (Manual) Atyp Lymphs # (Manual) Monocytes # (Manual) Metamyelocytes # Toxic Vacuolation Platelet Estimate Plt Morphology Comment RBC Morphology Microcytosis Anion Gap Estim Creat Clear Calc Estimated GFR Random Glucose Lactic Acid F/U @ 2Hr Calcium Urine Color Yellow Urine Appearance Clear Urine pH 5.5 Ur Specific [place] 1.025 Urine Protein Trace Urine Glucose (UA) 250 H Urine Ketones Negative Urine Blood Negative Urine Nitrite Negative Ur Leukocyte Esterase Negative Influenza Type A (PCR) Influenza Type B (PCR) RSV RNA Qual (PCR) SARS-CoV-2 RNA (RT-PCR) Assessment and Plan (1) Right lower lobe pneumonia: Status: Acute Plan 67-year-old female with pertinent history of mood disorder, essential hypertension, asthma not on home oxygen, mixed hyperlipidemia who presents to the emergency department for evaluation of dyspnea. Acute hypoxemic respiratory failure and sepsis secondary to right-sided pneumonia: sob with minimal excersion lactic acid normal blood culture and sputum culture pending continue empiric antibiotics -ceftriaxone/azithromycin day2,Monitor supplemental oxygen and wean as tolerated. Maintain oxygen saturation greater than 90%. Essential hypertension.? Hold home antihypertensives in the setting of sepsis. Resume as appropriate Asthma.? No exacerbation of admission.? Continue home inhaler ? Mixed hyperlipidemia.? On statin ? Morbid obesity.? Counseled regarding diet and exercise. generlaised weak-oob ,incentive kyle,chest pt, Pt eval. DVT prophylaxis.?Lovenox ongoing inaptient hospitlisation need:Acute hypoxemic respiratory failure and sepsis secondary to right-sided pneumonia- IV antibiotics and supplemental oxygen Time Spent With Patient Time: Total time managing care of this patient today ____ minutes. Quality Stroke Does the patient have a stroke diagnosis?: No VTE Prior VTE?: No VTE Risk Level:: Medical - moderate - high VTE Device Contraindication: Treatment Not Indicated VTE Drug Contraindication: N/A - Med Ordered
[2023-08-09 14:31] VITALS: BP 117/61; PULSE 64; O2SAT 95
[2023-08-09 15:17] VITALS: BP 109/59; PULSE 70; RESP 18; TEMP 36.4; O2SAT 96
[2023-08-09] MEDS: Azithromycin 500 MG in 0.9 % Sodium Chloride 250 ML 125 MG IV (17:38)
[2023-08-09] MEDS: Acetaminophen 325 MG TABLET 650 MG PO (18:38)
[2023-08-09 19:38] VITALS: BP 110/57; PULSE 75; RESP 17; TEMP 36; O2SAT 96
[2023-08-09] MEDS: cefTRIAXone sodium 1 GM in 0.9 % Sodium Chloride 50 ML IV (19:46)
[2023-08-09] MEDS: Enoxaparin Sodium 40 MG/0.4 ML SYRINGE SUBCUT (19:49)
[2023-08-10 03:34] VITALS: BP 133/70; PULSE 72; RESP 20; TEMP 36; O2SAT 98
[2023-08-10 07:51] VITALS: BP 133/63; PULSE 61; RESP 18; TEMP 36.1; O2SAT 95
[2023-08-10] MEDS: Metoprolol Succinate ER 25 MG TAB.ER.24H PO (08:28)
[2023-08-10] MEDS: Acetaminophen 325 MG TABLET 650 MG PO ×2 (08:28→20:20)
[2023-08-10] MEDS: Loratadine 10 MG TABLET PO (08:28)
[2023-08-10] MEDS: Escitalopram Oxalate 10 MG TABLET PO (08:28)
[2023-08-10] MEDS: Cyanocobalamin (Vitamin B-12) 1,000 MCG TABLET 1000 MCG PO (08:28)
[2023-08-10] MEDS: Furosemide 20 MG TABLET PO (08:29)
[2023-08-10] MEDS: Atorvastatin Calcium 20 MG TABLET PO (08:29)
[2023-08-10] MEDS: 0.9 % Sodium Chloride Flush 3 ML SYRINGE IVFLUSH ×3 (08:29→20:17)
[2023-08-10] MEDS: Furosemide 20 MG/2 ML VIAL IVPUSH (09:49)
--- NOTE | 2023-08-10 11:48 | P.PNIM_ITS ---
Subjective Subjective Date of Service: 08/10/23 Interval History: Acute hypoxemic respiratory failure and sepsis secondary to right-sided pneumonia. Review of Systems sob seems similar has cough no chest pain or fevers. Physical Exam 2 Vital Signs: Vital Signs: Last Vital Signs Temp 96.9 F 08/10/23 07:51 Pulse 61 08/10/23 07:51 Resp 18 08/10/23 07:51 BP 133/63 08/10/23 07:51 Pulse Ox 95 08/10/23 07:51 O2 Del Method Nasal Cannula 08/10/23 07:51 O2 Flow Rate 3 08/10/23 07:51 Oxygen Flow Rate 2 08/08/23 15:16 BMI result Body Mass Index 42.3 Appearance: Alert.? Oriented X3.? cvs: rrr, [id number] , no murmur res: air entry diminshed ,right side >left . abd: no rebound or guarding ,nt, bs present. ext pulses present , no cyanosis . neuro: axo3 , nonfocal. Objective Data Active Medications Acetaminophen (Acetaminophen 325 Mg Tablet) 650 mg PO Q6H PRN PRN Reason: Pain, Mild (Pain Scale 1-3) Last Admin: 08/10/23 08:28 Dose: 650 mg Documented By: LISA Albuterol Sulfate (Albuterol Sulfate (0.083%) 2.5 Mg/3 Ml Vial.Neb) 2.5 mg INHALE Q6H PRN PRN Reason: bronchospasm Albuterol Sulfate (Albuterol Sulfate 90 Mcg 8 Gm Inhaler) 2 puff INHALE Q4H PRN PRN Reason: shortness of breath or wheezing Atorvastatin Calcium (Atorvastatin Calcium 20 Mg Tablet) 20 mg PO DAILY [facility] Last Admin: 08/10/23 08:29 Dose: 20 mg Documented By: LISA Cyanocobalamin (Cyanocobalamin (Vitamin B-12) 1,000 Mcg Tablet) 1,000 mcg PO DAILY [facility] Last Admin: 08/10/23 08:28 Dose: 1,000 mcg Documented By: LISA Enoxaparin Sodium (Enoxaparin Sodium 40 Mg/0.4 Ml Syringe) 40 mg SUBCUT Q24H [facility] Last Admin: 08/09/23 19:49 Dose: 40 mg Documented By: GEORGE Escitalopram Oxalate (Escitalopram Oxalate 10 Mg Tablet) 10 mg PO DAILY [facility] Last Admin: 08/10/23 08:28 Dose: 10 mg Documented By: LISA Fluticasone/Vilanterol (Fluticasone/Vilanterol 200/25 Blst.W.Dev) 1 puff INHALE RDAILY [facility] Last Admin: 08/10/23 08:10 Dose: Not Given Documented By: STACI Non-Admin Reason: pt refused doesnt want the powder mdi Furosemide (Furosemide 20 Mg Tablet) 20 mg PO DAILY [facility]; Protocol Last Admin: 08/10/23 08:29 Dose: 20 mg Documented By: LISA Guaifenesin (Guaifenesin 100 Mg/5 Ml Liquid) 5 ml PO Q6H PRN PRN Reason: Cough Ceftriaxone Sodium 1 gm/ (Sodium Chloride) 50 mls @ 100 mls/hr IV Q24H [facility] Last Infusion: 08/09/23 20:25 Dose: Infused Documented By: GEORGE Azithromycin 500 mg/ Sodium (Chloride) 250 mls @ 125 mls/hr IV Q24H [facility] Last Infusion: 08/09/23 19:45 Dose: Infused Documented By: GEORGE Loratadine (Loratadine 10 Mg Tablet) 10 mg PO DAILY [facility] Last Admin: 08/10/23 08:28 Dose: 10 mg Documented By: LISA Melatonin (Melatonin 3 Mg Tablet) 6 mg PO BEDTIME PRN PRN Reason: Insomnia Last Admin: 08/08/23 23:16 Dose: 6 mg Documented By: GEORGE Metoprolol Succinate (Metoprolol Succinate Er 25 Mg Tab.Er.24h) 25 mg PO DAILY [facility]; Protocol Last Admin: 08/10/23 08:28 Dose: 25 mg Documented By: LISA Ondansetron HCl (Ondansetron Hcl 4 Mg/2 Ml Vial) 4 mg IVPUSH Q8H PRN PRN Reason: Nausea and Vomiting Sodium Chloride (0.9 % Sodium Chloride Flush 3 Ml Syringe) 3 ml IVFLUSH QSHIFT [facility] Last Admin: 08/10/23 08:29 Dose: 3 ml Documented By: LISA Vitamin D (Cholecalciferol (Vitamin D3) 25 Mcg Tablet) 50 mcg PO DAILY [facility] Last Admin: 08/10/23 09:48 Dose: Not Given Documented By: LISA Non-Admin Reason: pt refused Labs 08/09/23 05:07 08/09/23 05:07 Microbiology Microbiology Results: Microbiology 08/09/23 06:47 Gram Stain - Final Sputum - Expectorated Sputum Culture - Preliminary 08/08/23 19:19 Blood Culture - Preliminary Blood - Venous No growth after 24 hours. 08/08/23 19:19 Blood Culture - Preliminary Blood - Venous No growth after 24 hours. Assessment and Plan (1) Right lower lobe pneumonia: Status: Acute Plan day3 67-year-old female with pertinent history of mood disorder, essential hypertension, asthma not on home oxygen, mixed hyperlipidemia who presents to the emergency department for evaluation of dyspnea. Acute hypoxemic respiratory failure and sepsis secondary to right-sided pneumonia: sob with minimal excersion lactic acid normal blood culture and sputum culture pending continue empiric antibiotics -ceftriaxone/azithromycin day3,Monitor supplemental oxygen and wean as tolerated. Maintain oxygen saturation greater than 90%. Essential hypertension.? Hold home antihypertensives in the setting of sepsis. Resume as appropriate Asthma.? No exacerbation of admission.? Continue home inhaler ? Mixed hyperlipidemia.? On statin ? Morbid obesity.? Counseled regarding diet and exercise. generlaised weak-oob ,incentive kyle,chest pt, Pt eval. DVT prophylaxis.?Lovenox ongoing inaptient hospitlisation need:Acute hypoxemic respiratory failure and sepsis secondary to right-sided pneumonia- IV antibiotics and supplemental oxygen Time Spent With Patient Time: Total time managing care of this patient today ____ minutes. Quality Stroke Does the patient have a stroke diagnosis?: No VTE Prior VTE?: No VTE Risk Level:: Medical - moderate - high VTE Device Contraindication: Treatment Not Indicated VTE Drug Contraindication: N/A - Med Ordered
[2023-08-10 15:25] VITALS: BP 140/67; PULSE 69; RESP 16; TEMP 36.8; O2SAT 97
[2023-08-10] MEDS: Azithromycin 500 MG in 0.9 % Sodium Chloride 250 ML 125 MG IV (16:45)
[2023-08-10 19:25] VITALS: BP 112/77; PULSE 65; RESP 16; TEMP 36.3; O2SAT 94
[2023-08-10] MEDS: cefTRIAXone sodium 1 GM in 0.9 % Sodium Chloride 50 ML IV (20:16)
[2023-08-10] MEDS: Enoxaparin Sodium 40 MG/0.4 ML SYRINGE SUBCUT (20:17)
[2023-08-10] MEDS: Melatonin 3 MG TABLET 6 MG PO (21:05)
[2023-08-11 02:44] VITALS: BP 122/71; PULSE 62; RESP 18; TEMP 35.8; O2SAT 98
[2023-08-11 07:19] VITALS: BP 135/66; PULSE 69; RESP 16; TEMP 36; O2SAT 98
[2023-08-11] MEDS: Fluticasone/Vilanterol 200/25 BLST.W.DEV 1 PUFF INHALE (07:34)
[2023-08-11 07:36] VITALS: PULSE 71; RESP 16; O2SAT 98
[2023-08-11] MEDS: Cyanocobalamin (Vitamin B-12) 1,000 MCG TABLET 1000 MCG PO (10:27)
[2023-08-11] MEDS: Escitalopram Oxalate 10 MG TABLET PO (10:27)
[2023-08-11] MEDS: Atorvastatin Calcium 20 MG TABLET PO (10:27)
[2023-08-11] MEDS: Loratadine 10 MG TABLET PO (10:27)
[2023-08-11] MEDS: Acetaminophen 325 MG TABLET 650 MG PO ×2 (10:27→17:00)
[2023-08-11] MEDS: Metoprolol Succinate ER 25 MG TAB.ER.24H PO (10:27)
[2023-08-11] MEDS: Furosemide 20 MG TABLET PO (10:28)
--- NOTE | 2023-08-11 12:58 | P.PNIM_ITS ---
Subjective Subjective Date of Service: 08/11/23 Interval History: Acute hypoxemic respiratory failure and sepsis secondary to right-sided pneumonia. Review of Systems sob seems similar ,has cough denies any fever or chills Physical Exam 2 Vital Signs: Vital Signs: Last Vital Signs Temp 96.8 F 08/11/23 07:19 Pulse 71 08/11/23 07:36 Resp 16 08/11/23 07:36 BP 135/66 08/11/23 07:19 Pulse Ox 98 08/11/23 07:19 O2 Del Method Nasal Cannula 08/11/23 07:19 O2 Flow Rate 2 08/11/23 07:19 Oxygen Flow Rate 2 08/08/23 15:16 BMI result Body Mass Index 42.3 Appearance: Alert.? Oriented X3.? cvs: rrr, [id number] , no murmur res: air entry diminshed ,right side >left . abd: no rebound or guarding ,nt, bs present. ext pulses present , no cyanosis . neuro: axo3 , nonfocal. Objective Data Active Medications Acetaminophen (Acetaminophen 325 Mg Tablet) 650 mg PO Q6H [facility] Last Admin: 08/11/23 10:27 Dose: 650 mg Documented By: ANDRES Albuterol Sulfate (Albuterol Sulfate (0.083%) 2.5 Mg/3 Ml Vial.Neb) 2.5 mg INHALE Q6H PRN PRN Reason: bronchospasm Albuterol Sulfate (Albuterol Sulfate 90 Mcg 8 Gm Inhaler) 2 puff INHALE Q4H PRN PRN Reason: shortness of breath or wheezing Atorvastatin Calcium (Atorvastatin Calcium 20 Mg Tablet) 20 mg PO DAILY [facility] Last Admin: 08/11/23 10:27 Dose: 20 mg Documented By: ANDRES Cyanocobalamin (Cyanocobalamin (Vitamin B-12) 1,000 Mcg Tablet) 1,000 mcg PO DAILY [facility] Last Admin: 08/11/23 10:27 Dose: 1,000 mcg Documented By: ANDRES Enoxaparin Sodium (Enoxaparin Sodium 40 Mg/0.4 Ml Syringe) 40 mg SUBCUT Q24H [facility] Last Admin: 08/10/23 20:17 Dose: 40 mg Documented By: LAYA Escitalopram Oxalate (Escitalopram Oxalate 10 Mg Tablet) 10 mg PO DAILY [facility] Last Admin: 08/11/23 10:27 Dose: 10 mg Documented By: ANDRES Fluticasone/Vilanterol (Fluticasone/Vilanterol 200/25 Blst.W.Dev) 1 puff INHALE RDAILY [facility] Last Admin: 08/11/23 07:34 Dose: 1 puff Documented By: REBEKAH Furosemide (Furosemide 20 Mg Tablet) 20 mg PO DAILY [facility]; Protocol Last Admin: 08/11/23 10:28 Dose: 20 mg Documented By: ANDRES Guaifenesin (Guaifenesin 100 Mg/5 Ml Liquid) 5 ml PO Q6H PRN PRN Reason: Cough Ceftriaxone Sodium 1 gm/ (Sodium Chloride) 50 mls @ 100 mls/hr IV Q24H [facility] Last Infusion: 08/10/23 20:59 Dose: Infused Documented By: LAYA Azithromycin 500 mg/ Sodium (Chloride) 250 mls @ 125 mls/hr IV Q24H [facility] Last Infusion: 08/10/23 19:06 Dose: Infused Documented By: LISA Loratadine (Loratadine 10 Mg Tablet) 10 mg PO DAILY [facility] Last Admin: 08/11/23 10:27 Dose: 10 mg Documented By: ANDRES Melatonin (Melatonin 3 Mg Tablet) 6 mg PO BEDTIME PRN PRN Reason: Insomnia Last Admin: 08/10/23 21:05 Dose: 6 mg Documented By: LAYA Metoprolol Succinate (Metoprolol Succinate Er 25 Mg Tab.Er.24h) 25 mg PO DAILY [facility]; Protocol Last Admin: 08/11/23 10:27 Dose: 25 mg Documented By: ANDRES Ondansetron HCl (Ondansetron Hcl 4 Mg/2 Ml Vial) 4 mg IVPUSH Q8H PRN PRN Reason: Nausea and Vomiting Oxycodone HCl (Oxycodone Hcl Immed Release 5 Mg Tablet) 5 mg PO Q4H PRN PRN Reason: Pain, Mild (Pain Scale 1-3) Sodium Chloride (0.9 % Sodium Chloride Flush 3 Ml Syringe) 3 ml IVFLUSH QSHIFT [facility] Last Admin: 08/11/23 10:31 Dose: Not Given Documented By: ANDRES Non-Admin Reason: Previously Administered Vitamin D (Cholecalciferol (Vitamin D3) 25 Mcg Tablet) 50 mcg PO DAILY [facility] Last Admin: 08/11/23 10:26 Dose: Not Given Documented By: ANDRES Non-Admin Reason: Patient Refused Labs 08/09/23 05:07 08/09/23 05:07 Microbiology Microbiology Results: Microbiology 08/09/23 06:47 Gram Stain - Final Sputum - Expectorated Sputum Culture - Final 08/08/23 19:19 Blood Culture - Preliminary Blood - Venous No growth after 48 hours. 08/08/23 19:19 Blood Culture - Preliminary Blood - Venous No growth after 48 hours. Assessment and Plan (1) Right lower lobe pneumonia: Status: Acute Plan Day4: 67-year-old female with pertinent history of mood disorder, essential hypertension, asthma not on home oxygen, mixed hyperlipidemia who presents to the emergency department for evaluation of dyspnea. Acute hypoxemic respiratory failure and sepsis secondary to right-sided pneumonia: sob with minimal excersion lactic acid normal blood culture and sputum culture pending continue empiric antibiotics -ceftriaxone/azithromycin day4,taper oxygen saturation greater than 90%. Essential hypertension: bp accetable, continue metoprolol. Asthma.? No exacerbation of admission.? Continue home inhaler ? Mixed hyperlipidemia.? On statin ? Morbid obesity.? Counseled regarding diet and exercise. generlaised weak-oob ,incentive kyle,chest pt, Pt eval. DVT prophylaxis.?Lovenox ongoing inaptient hospitlisation need:Acute hypoxemic respiratory failure and sepsis secondary to right-sided pneumonia- IV antibiotics and supplemental oxygen Time Spent With Patient Time: Total time managing care of this patient today ____ minutes. Quality Stroke Does the patient have a stroke diagnosis?: No VTE Prior VTE?: No VTE Risk Level:: Medical - moderate - high VTE Device Contraindication: Treatment Not Indicated VTE Drug Contraindication: N/A - Med Ordered
--- NOTE | 2023-08-11 13:18 | MHC.CM.PN ---
pe rounds pt not improvong no plans for dc at this time
[2023-08-11 15:15] VITALS: BP 132/72; PULSE 61; RESP 16; TEMP 36.4; O2SAT 96
--- NOTE | 2023-08-11 15:54 | P.CDIM_ITS ---
PROVIDER RESPONSE TEXT: To clarify, the appropriate diagnosis supported by the clinical indicators: Mild intermittent: no excercebation QUERY TEXT: PHYSICIAN'S DOCUMENTATION REQUEST Date of Query: 08/11/2023 10:48 AM EDT Patient Name: Marita Murray Admit Date: 08/08/2023 Dear Marissa Alexis, A review of the medical record indicates additional documentation may be needed. Please review below and update the documentation accordingly. The diagnosis of asthma was documented in the record on 08/10/23. Additional clinical indicators from the record include: Per Hospitalist Progress Note: Asthma. No exacerbation of admission. Continue home inhaler Based on the above, please clarify in the Progress Notes further specificity regarding the type and a cuity of the asthma: Mild intermittent Please specify if with or without acute exacerbation or status asthmaticus Mild persistent Please specify if with or without acute exacerbation or status asthmaticus Moderate persistent Please specify if with or without acute exacerbation or status asthmaticus Severe persistent Please specify if with or without acute exacerbation or status asthmaticus Exercise induced Please specify if with or without acute exacerbation or status asthmaticus Chronic obstructive asthma and indicate if with acute lower respiratory infection Please specify if with or without acute exacerbation or status asthmaticus Asthma with underlying COPD and indicate if with acute lower respiratory infection Please specify if with or without acute exacerbation or status asthmaticus Other (explain)Clinically unable to determine (explain)Thank you, Monica Oleary RN Use of terms such as suspected, likely, concern for, or probable (associated with a specific diagnosi s that is being evaluated, monitored, or treated as if it exists) are acceptable and can be coded in the inpatient se tting, when documented at the time of discharge. Please use your independent medical judgment in providing your response. THIS QUERY IS PART OF THE PERMANENT MEDICAL RECORD
[2023-08-11] MEDS: 0.9 % Sodium Chloride Flush 3 ML SYRINGE IVFLUSH (16:59)
[2023-08-11] MEDS: Azithromycin 500 MG in 0.9 % Sodium Chloride 250 ML 125 MG IV (17:00)
[2023-08-11 19:29] VITALS: BP 128/69; PULSE 71; RESP 16; TEMP 36.2; O2SAT 96
[2023-08-11] MEDS: cefTRIAXone sodium 1 GM in 0.9 % Sodium Chloride 50 ML IV (20:44)
[2023-08-11] MEDS: Enoxaparin Sodium 40 MG/0.4 ML SYRINGE SUBCUT (20:44)
[2023-08-11] MEDS: Melatonin 3 MG TABLET 6 MG PO (20:44)
[2023-08-12 03:55] VITALS: BP 128/71; PULSE 62; RESP 17; TEMP 36.6; O2SAT 95
--- NOTE | 2023-08-12 05:28 | PC.NURSE ---
pt in room 344 refused schd tylenol med @ [id number] and [id number]. Pt stated that she did not need med because she is not experiencing pain. Pt stated that her level of pain is tolerable.
[2023-08-12 07:38] VITALS: BP 127/74; PULSE 64; RESP 20; TEMP 36.4; O2SAT 96
[2023-08-12] MEDS: Fluticasone/Vilanterol 200/25 BLST.W.DEV 1 PUFF INHALE (08:05)
[2023-08-12 08:07] VITALS: PULSE 67; RESP 18; O2SAT 97
[2023-08-12 09:08] VITALS: O2SAT 94
[2023-08-12] MEDS: 0.9 % Sodium Chloride Flush 3 ML SYRINGE IVFLUSH ×4 (09:08→20:24)
[2023-08-12] MEDS: Furosemide 20 MG TABLET PO (09:09)
[2023-08-12] MEDS: Metoprolol Succinate ER 25 MG TAB.ER.24H PO (09:09)
[2023-08-12] MEDS: Cyanocobalamin (Vitamin B-12) 1,000 MCG TABLET 1000 MCG PO (09:09)
[2023-08-12] MEDS: Escitalopram Oxalate 10 MG TABLET PO (09:09)
[2023-08-12] MEDS: Atorvastatin Calcium 20 MG TABLET PO (09:09)
[2023-08-12] MEDS: Acetaminophen 325 MG TABLET 650 MG PO ×2 (09:10→20:23)
--- NOTE | 2023-08-12 10:26 | HO.PM.IMPN ---
Subjective Subjective Date of Service: 08/12/23 Interval History: Acute hypoxemic respiratory failure and sepsis secondary to right-sided pneumonia. Review of Systems sob seems somewhat improving but still sob with minimum excersion ,has cough denies any fever or chills Physical Exam Vital Signs: Vital Signs: Last Vital Signs Temp 97.6 F 08/12/23 07:38 Pulse 67 08/12/23 08:07 Resp 18 08/12/23 08:07 BP 127/74 08/12/23 07:38 Pulse Ox 94 08/12/23 09:08 O2 Del Method Room Air 08/12/23 09:08 O2 Flow Rate 1 08/12/23 07:38 Oxygen Flow Rate 2 08/08/23 15:16 BMI result Body Mass Index 42.3 Appearance: Alert.? Oriented X3.? cvs: rrr, [id number] , no murmur res: air entry diminshed ,right side >left . abd: no rebound or guarding ,nt, bs present. ext pulses present , no cyanosis . neuro: axo3 , nonfocal. Objective Data Active Medications Acetaminophen (Acetaminophen 325 Mg Tablet) 650 mg PO Q6H [facility] Last Admin: 08/12/23 09:10 Dose: 650 mg Albuterol Sulfate (Albuterol Sulfate (0.083%) 2.5 Mg/3 Ml Vial.Neb) 2.5 mg INHALE Q6H PRN PRN Reason: bronchospasm Albuterol Sulfate (Albuterol Sulfate 90 Mcg 8 Gm Inhaler) 2 puff INHALE Q4H PRN PRN Reason: shortness of breath or wheezing Atorvastatin Calcium (Atorvastatin Calcium 20 Mg Tablet) 20 mg PO DAILY [facility] Last Admin: 08/12/23 09:09 Dose: 20 mg Documented By: ODETTE Cyanocobalamin (Cyanocobalamin (Vitamin B-12) 1,000 Mcg Tablet) 1,000 mcg PO DAILY [facility] Last Admin: 08/12/23 09:09 Dose: 1,000 mcg Documented By: ODETTE Enoxaparin Sodium (Enoxaparin Sodium 40 Mg/0.4 Ml Syringe) 40 mg SUBCUT Q24H [facility] Last Admin: 08/11/23 20:44 Dose: 40 mg Documented By: LAYA Escitalopram Oxalate (Escitalopram Oxalate 10 Mg Tablet) 10 mg PO DAILY [facility] Last Admin: 08/12/23 09:09 Dose: 10 mg Documented By: ODETTE Fluticasone/Vilanterol (Fluticasone/Vilanterol 200/25 Blst.W.Dev) 1 puff INHALE RDAILY [facility] Last Admin: 08/12/23 08:05 Dose: 1 puff Documented By: JOSE Furosemide (Furosemide 20 Mg Tablet) 20 mg PO DAILY [facility]; Protocol Last Admin: 08/12/23 09:09 Dose: 20 mg Documented By: ODETTE Guaifenesin (Guaifenesin 100 Mg/5 Ml Liquid) 5 ml PO Q6H PRN PRN Reason: Cough Ceftriaxone Sodium 1 gm/ (Sodium Chloride) 50 mls @ 100 mls/hr IV Q24H [facility] Last Infusion: 08/11/23 21:15 Dose: Infused Documented By: LAYA Loratadine (Loratadine 10 Mg Tablet) 10 mg PO DAILY [facility] Last Admin: 08/12/23 09:10 Dose: Not Given Documented By: ODETTE Non-Admin Reason: Patient Refused Melatonin (Melatonin 3 Mg Tablet) 6 mg PO BEDTIME PRN PRN Reason: Insomnia Last Admin: 08/11/23 20:44 Dose: 6 mg Documented By: LAYA Metoprolol Succinate (Metoprolol Succinate Er 25 Mg Tab.Er.24h) 25 mg PO DAILY [facility]; Protocol Last Admin: 08/12/23 09:09 Dose: 25 mg Documented By: ODETTE Ondansetron HCl (Ondansetron Hcl 4 Mg/2 Ml Vial) 4 mg IVPUSH Q8H PRN PRN Reason: Nausea and Vomiting Oxycodone HCl (Oxycodone Hcl Immed Release 5 Mg Tablet) 5 mg PO Q4H PRN PRN Reason: Pain, Mild (Pain Scale 1-3) Sodium Chloride (0.9 % Sodium Chloride Flush 3 Ml Syringe) 3 ml IVFLUSH QSHIFT [facility] Last Admin: 08/12/23 09:08 Dose: 3 ml Documented By: ODETTE Vitamin D (Cholecalciferol (Vitamin D3) 25 Mcg Tablet) 50 mcg PO DAILY [facility] Last Admin: 08/12/23 09:09 Dose: Not Given Documented By: ODETTE Non-Admin Reason: Patient Refused Labs 08/09/23 05:07 08/09/23 05:07 Microbiology Microbiology Results: Microbiology 08/09/23 06:47 Gram Stain - Final Sputum - Expectorated Sputum Culture - Final Assessment and Plan (1) Right lower lobe pneumonia: Status: Acute Plan Day5: 67-year-old female with pertinent history of mood disorder, essential hypertension, asthma not on home oxygen, mixed hyperlipidemia who presents to the emergency department for evaluation of dyspnea. Acute hypoxemic respiratory failure and sepsis secondary to right-sided pneumonia: sob with minimal excersion lactic acid normal blood culture and sputum culture pending continue empiric antibiotics -ceftriaxone/azithromycin day5,taper oxygen saturation greater than 90%. Essential hypertension: bp accetable, continue metoprolol. Asthma.? No exacerbation of admission.? Continue home inhaler ? Mixed hyperlipidemia.? On statin ? Morbid obesity.? Counseled regarding diet and exercise. generlaised weak-oob ,incentive kyle,chest pt, Pt eval. DVT prophylaxis.?Lovenox ongoing inaptient hospitlisation need:Acute hypoxemic respiratory failure and sepsis secondary to right-sided pneumonia- IV antibiotics and supplemental oxygen. Time Spent With Patient Time: Total time managing care of this patient today ____ minutes. Quality Stroke Does the patient have a stroke diagnosis?: No VTE Prior VTE?: No VTE Risk Level:: Medical - moderate - high VTE Device Contraindication: Treatment Not Indicated VTE Drug Contraindication: N/A - Med Ordered
[2023-08-12 15:28] VITALS: BP 118/65; PULSE 68; RESP 20; TEMP 36.6; O2SAT 95
[2023-08-12 19:09] VITALS: BP 128/66; PULSE 70; RESP 18; TEMP 36.3; O2SAT 95
[2023-08-12] MEDS: cefTRIAXone sodium 1 GM in 0.9 % Sodium Chloride 50 ML IV (20:22)
[2023-08-12] MEDS: Melatonin 3 MG TABLET 6 MG PO (20:22)
[2023-08-12] MEDS: Enoxaparin Sodium 40 MG/0.4 ML SYRINGE SUBCUT (20:23)
[2023-08-13 03:25] VITALS: BP 113/63; PULSE 65; RESP 19; TEMP 36.3; O2SAT 93
[2023-08-13 07:07] VITALS: BP 138/71; PULSE 65; RESP 16; TEMP 36.6; O2SAT 94
[2023-08-13] MEDS: Fluticasone/Vilanterol 200/25 BLST.W.DEV 1 PUFF INHALE (08:00)
[2023-08-13 08:02] VITALS: PULSE 67; RESP 18; O2SAT 95
[2023-08-13] MEDS: 0.9 % Sodium Chloride Flush 3 ML SYRINGE IVFLUSH (09:13)
[2023-08-13] MEDS: Acetaminophen 325 MG TABLET 650 MG PO (09:14)
[2023-08-13] MEDS: Escitalopram Oxalate 10 MG TABLET PO (09:14)
[2023-08-13] MEDS: Atorvastatin Calcium 20 MG TABLET PO (09:14)
[2023-08-13] MEDS: Metoprolol Succinate ER 25 MG TAB.ER.24H PO (09:14)
[2023-08-13] MEDS: Loratadine 10 MG TABLET PO (09:15)
[2023-08-13] MEDS: Cyanocobalamin (Vitamin B-12) 1,000 MCG TABLET 1000 MCG PO (09:15)
[2023-08-13 10:24] VITALS: PULSE 67
--- NOTE | 2023-08-13 10:41 | P.DS_ITS ---
DS: Providers Provider Date of Service: 08/13/23 Date of admission: 08/08/23 19:48 Date of discharge: 08/13/23 Primary care physician: Adrianna Richter MD DS: Diagnosis Discharge Diagnosis (1) Right lower lobe pneumonia: Status: Acute (2) Sepsis: Status: Acute (3) Acute hypoxemic respiratory failure: Status: Acute (4) Morbid obesity: Status: Acute DS: Summary Hospital Course Hospital Course: from admission history and physical by hospitalist Kim Arreguin MD, 08/08/23: This is a 67-year-old female with pertinent history of mood disorder, essential hypertension, asthma not on home oxygen, mixed hyperlipidemia who presents to the emergency department for evaluation of dyspnea. Patient states it started 1 day prior to presentation. She has been having dyspnea, worse with ambulation and progressive. Also has been having productive cough. Admits fevers and chills. No sick contacts. Patient denies chest discomfort, palpitations, nausea, vomiting, abdominal pain, changes in urinary or bowel habits. Admits generalized malaise and fatigue. In the emergency department, patient was found to be septic and imaging concerning for pneumonia. She was admitted to the medical-surgical floor and placed on oxygen and IV ceftriaxone plus azithromycin. Blood cultures were negative and sputum culture showed normal respiratory mookie. She improved clinically and was weaned off oxygen. She completed 5 days of IV antibiotics in the hospital and was discharged with 2 more days of PO cefuroxime. Home VNA services will be resumed. Time Spent with Patient Time attestation: Total time managing care of this patient today ___35_ minutes. Discharge coordination time: Greater than 30 minutes Quality: Safe Use of Opioids Does Pt have an Active Cancer Diagnosis on the Problem List?: No Quality: Stroke Does the patient have a stroke diagnosis?: No Physical Exam Vital Signs: Vital Signs: Last Vital Signs Temp 98 F 08/13/23 07:07 Pulse 67 08/13/23 10:24 Resp 18 08/13/23 08:02 BP 138/71 08/13/23 07:07 Pulse Ox 94 08/13/23 07:07 O2 Del Method Room Air 08/13/23 07:07 O2 Flow Rate 1 08/12/23 07:38 Oxygen Flow Rate 2 08/08/23 15:16 BMI result Body Mass Index 42.3 Gen: in no acute distress HEENT: sclera anicteric, moist mucus membranes Neck: supple Lungs: clear to auscultation bilaterally Heart: regular rate and rhythm, no murmurs Abd: soft, non-tender, non-distended Ext: no edema Skin: warm/well-perfused Neuro: alert and oriented x3, no focal findings Psych: appropriate affect DS: Data Data Completed and Pending Completed studies during hospitalization [Text1]: Laboratory Results WBC 15.9 X10*3/uL (4.8-10.8) H 08/09/23 05:07 RBC 4.36 X10*6/uL (4.20-5.50) 08/09/23 05:07 Hgb 10.9 g/dl (12.0-16.0) L 08/09/23 05:07 Hct 35.3 % (37.0-47.0) L 08/09/23 05:07 MCV 81.0 fL (80.0-98.0) 08/09/23 05:07 MCH 25.0 pg (27.0-33.0) L 08/09/23 05:07 MCHC 30.9 g/dl (31.0-35.0) L 08/09/23 05:07 RDW 15.6 % (11.0-16.0) 08/09/23 05:07 Plt Count 191 X10*3/uL (160-400) 08/09/23 05:07 MPV 9.8 fL (9.4-12.3) 08/09/23 05:07 Immature Gran % (Auto) Cancelled 08/09/23 05:07 Neut % (Auto) Cancelled 08/09/23 05:07 Lymph % (Auto) Cancelled 08/09/23 05:07 Griggs % (Auto) Cancelled 08/09/23 05:07 Eos % (Auto) Cancelled 08/09/23 05:07 Baso % (Auto) Cancelled 08/09/23 05:07 Lymph # (Auto) Cancelled 08/09/23 05:07 Griggs # (Auto) Cancelled 08/09/23 05:07 Eos # (Auto) Cancelled 08/09/23 05:07 Baso # (Auto) Cancelled 08/09/23 05:07 Abs Immat Gran (auto) Cancelled 08/09/23 05:07 Absolute Neuts (auto) Cancelled 08/09/23 05:07 Absolute Nucleated RBC 0.000 X10*3/uL (0.0-0.012) 08/09/23 05:07 Nucleated RBC % (auto) 0.0 /100WBC (0.0-0.2) 08/09/23 05:07 Neutrophils % (Manual) 63 % (45-73) 08/09/23 05:07 Band Neutrophils % 25 % (3-5) H 08/09/23 05:07 Lymphocytes % (Manual) 7 % (20-40) L 08/09/23 05:07 Atypical Lymphs % (Man) 1 % (0-6) 08/09/23 05:07 Monocytes % (Manual) 3 % (2-11) 08/09/23 05:07 Metamyelocytes % 1 % 08/09/23 05:07 Abs Neuts (Manual) 14.0 X10*3/uL (2.0-8.3) H 08/09/23 05:07 Lymphocytes # (Manual) 1.1 X10*3/uL (1.2-4.9) L 08/09/23 05:07 Atyp Lymphs # (Manual) 0.2 x10*3/uL 08/09/23 05:07 Monocytes # (Manual) 0.5 X10*3/uL (0.1-1.2) 08/09/23 05:07 Metamyelocytes # 0.2 X10*3/uL 08/09/23 05:07 Toxic Vacuolation PRESENT 08/09/23 05:07 Platelet Estimate NORMAL (NORMAL) 08/09/23 05:07 Plt Morphology Comment NORMAL 08/09/23 05:07 RBC Morphology NOTED 08/09/23 05:07 Microcytosis 1+ (5-14) /OIF 08/09/23 05:07 Sodium 139 mmol/L (135-145) 08/09/23 05:07 Potassium 3.5 mmol/L (3.3-5.1) 08/09/23 05:07 Chloride 105 mmol/L (96-108) 08/09/23 05:07 Carbon Dioxide 24 mmol/L (22-29) 08/09/23 05:07 Anion Gap 14 (12-20) 08/09/23 05:07 BUN 20 mg/dL (9-16) H 08/09/23 05:07 Creatinine 0.97 mg/dL (0.5-1.4) 08/09/23 05:07 Estim Creat Clear Calc 55.2 08/09/23 05:07 Estimated GFR 57 08/09/23 05:07 Random Glucose 275 mg/dL (60-115) H 08/09/23 05:07 Lactic Acid F/U @ 2Hr 1.4 mmol/L (0.5-2.0) 08/08/23 19:19 Calcium 9.8 mg/dL (8.4-10.2) 08/09/23 05:07 Total Bilirubin 2.2 mg/dL (0.0-1.0) H 08/08/23 12:34 Direct Bilirubin 0.8 mg/dL (0.0-0.5) H 08/08/23 12:34 AST 31 U/L (5-31) 08/08/23 12:34 ALT 25 U/L (0-31) 08/08/23 12:34 Alkaline Phosphatase 88 U/L (39-117) 08/08/23 12:34 Total Protein 7.5 g/dL (6.5-8.0) 08/08/23 12:34 Albumin 4.0 g/dL (3.5-5.0) 08/08/23 12:34 Lipase 9 U/L (8-78) 08/08/23 12:34 Urine Color Yellow 08/09/23 06:42 Urine Appearance Clear 08/09/23 06:42 Urine pH 5.5 (5.0-9.0) 08/09/23 06:42 Ur Specific [place] 1.025 (1.005-1.025) 08/09/23 06:42 Urine Protein Trace mg/dL (Neg-Trace) 08/09/23 06:42 Urine Glucose (UA) 250 mg/dL (Negative) H 08/09/23 06:42 Urine Ketones Negative mg/dL (Negative) 08/09/23 06:42 Urine Blood Negative (Negative) 08/09/23 06:42 Urine Nitrite Negative (Negative) 08/09/23 06:42 Ur Leukocyte Esterase Negative (Negative) 08/09/23 06:42 Influenza Type A (PCR) NEGATIVE (Negative) 08/08/23 15:32 Influenza Type B (PCR) NEGATIVE (Negative) 08/08/23 15:32 RSV RNA Qual (PCR) NEGATIVE (Negative) 08/08/23 15:32 SARS-CoV-2 RNA (RT-PCR) NEGATIVE (Negative) 08/08/23 15:32 Impressions Chest X-Ray 08/08/23 16:25 IMPRESSION: Right lower lobe infiltrate. Follow-up until resolution is advised. Labs on day of discharge: Preliminary micro results at discharge 08/08/23 19:19 Blood Culture - Preliminary Blood - Venous No growth after 48 hours. 08/08/23 19:19 Blood Culture - Preliminary Blood - Venous No growth after 48 hours. 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) Adrianna Sharp MD [Primary Care Provider] - 1 Week Discharge Medications: New cefuroxime axetil 500 mg tablet 500 mg PO BID Qty: 4 0RF Continued (DME) miscellaneous medical supply [facility] See Rx Instructions .ROUTE .MEDSUPPLY Qty: 1 0RF Rx Instructions: GRAB BAR 18 (DME) miscellaneous medical [facility] See Rx Instructions .ROUTE .MEDSUPPLY Qty: 1 0RF Rx Instructions: toilet safety frame (DME) Ultra-Light Rollator [facility] See Rx Instructions .ROUTE .MEDSUPPLY Qty: 1 0RF Rx Instructions: As directed (DME) nebulizers [AeroEclipse II Nebulizer] [facility] See Rx Instructions .Route Qty: 1 0RF Rx Instructions: As directed metoprolol succinate 25 mg tablet extended release 24 hr 25 mg PO DAILY 90 Days Qty: 90 3RF cyanocobalamin (vitamin B-12) [Vitamin B-12] 1,000 mcg tablet 1,000 mcg PO DAILY Qty: 90 1RF cholecalciferol (vitamin D3) [Vitamin D3] 50 mcg (2,000 unit) tablet 50 mcg PO DAILY Qty: 30 5RF atorvastatin 20 mg tablet 20 mg PO DAILY 90 Days Qty: 90 3RF escitalopram oxalate 10 mg tablet 10 mg PO DAILY 90 Days Qty: 90 1RF Advair HFA 230-21 mcg/actuation HFA aerosol inhaler 2 puff inhalation Q12H Qty: 12 6RF albuterol sulfate 2.5 mg /3 mL (0.083 %) solution for nebulization 2.5 mg inhalation Q6H PRN (Reason: bronchospasm) 30 Days Qty: 75 1RF furosemide 20 mg tablet 20 mg PO DAILY Proair Digihaler 90 mcg/actuation aero powdr breath act w/sensor 2 inh inhalation Q4H PRN (Reason: shortness of breath or wheezing) Discharge Orders: Discharge Order (Routine); Ordered 08/13/23 Ordered By: Vignesh Harmon Diet: Advance to usual diet Activity on Discharge: As tolerated Stand Alone Forms: Patient Portal Discharge page Care Plan Goals: recovery from pneumonia Health Concerns: pneumonia Plan of Treatment: take cefuroxime 500 mg twice daily for 2 days Please follow up with your primary care doctor within 1 week. Return to the hospital if you experience recurrent or worsening symptoms. Assessment: See Discharge Summary.
--- NOTE | 2023-08-13 11:06 | MHC.CM.PN ---
pt dcd today [facility] notified of dc pt active with them prior to admisison
== END 2023-08-13 12:53 | disposition home health service (06) | DRG 871 ==
LOC: HO.ED 19:36 → HO.EDOVER 19:52 → HO.S3 20:01
PROVIDERS: Emergency Medicine; Physician Assistant; Admitting Provider Student in an Organized Health Care Education/Training Program; Emergency Provider Internal Medicine; PCP Internal Medicine; Visit Provider Family Medicine
DX: A41.9 Sepsis, unspecified organism (principal); J18.9 Pneumonia, unspecified organism; J96.01 Acute respiratory failure with hypoxia; Z68.41 Body mass index [BMI] 40.0-44.9, adult; R04.2 Hemoptysis; I10 Essential (primary) hypertension; E78.2 Mixed hyperlipidemia; J45.20 Mild intermittent asthma, uncomplicated; E66.01 Morbid (severe) obesity due to excess calories; Z91.040 Latex allergy status; Z20.822 Contact with and (suspected) exposure to COVID-19; Z79.899 Other long term (current) drug therapy
CPT/HCPCS: 0241U; 36415; 71046; 80048; 80076; 81003; 83605; 83690; 85007; 85025; 85027; 87040; 87070; 87205; 93005; 94640; 97162; 99285; J0456; J0696; J1650; J1940; J2930

== ENCOUNTER → 2023-08-08 19:48 | Outpatient (BNV) | payer OTHER, SELFPAY | PROVIDERS: Admitting Provider Student in an Organized Health Care Education/Training Program; Emergency Provider Internal Medicine; PCP Internal Medicine; Visit Provider Student in an Organized Health Care Education/Training Program | DX: A41.9 Sepsis, unspecified organism (principal); J96.01 Acute respiratory failure with hypoxia; E66.01 Morbid (severe) obesity due to excess calories; Z68.41 Body mass index [BMI] 40.0-44.9, adult; J18.9 Pneumonia, unspecified organism | CPT/HCPCS: 99222; 99231; 99232; 99239 ==

== ENCOUNTER 2023-08-26 14:20 | Outpatient (AMB) | payer OTHER, SELFPAY ==
--- NOTE | 2023-08-26 14:22 | A.OFFPC_ITS ---
Vital Signs 08/26/23 14:23 Height 4 ft 11 in Weight 203 lb BMI 41.0 BP 112/70 Blood Pressure Location Rt brachial Position Sitting Pulse 62 Pulse Source Pulse Oximeter Pulse Oximetry (%) 97 Oxygen Delivery Method Room Air Intake Visit Reasons: [facility] 08/08 Respiratory failure and sepsis Intake Note: Patient here for a [facility] disch follow up respiratory failure, sepsis Bolt Cutter Required: No Accompanied by: Self / Same As Patient Allergies latex [LATEX] Allergy (Intermediate, Verified 08/26/23 14:44) RASH oxycodone Adverse Reaction (Severe, Verified 08/26/23 14:44) Itching Medication List - Last Reconciled 08/26/23 by Adrianna Richter MD Advair HFA 230-21 mcg/actuation (fluticasone propion-salmeterol) 2 puffs inhalation Q12H NS albuterol sulfate 90 mcg/actuation (Proair Digihaler) 2 inhalations inhalation Q4H PRN albuterol sulfate 2.5 mg (3 mL) inhalation Q6H PRN 30 days atorvastatin 20 mg PO DAILY 90 days cyanocobalamin (vitamin B-12) (Vitamin B-12) 1,000 mcg PO DAILY escitalopram oxalate 10 mg PO DAILY 90 days ferrous sulfate 324 mg PO DAILY furosemide 20 mg PO DAILY metoprolol succinate ER 25 mg PO DAILY 90 days miscellaneous medical supply GRAB BAR 18 miscellaneous medical supply toilet safety frame nebulizers (AeroEclipse II Nebulizer) As directed walker (Ultra-Light Rollator misc) As directed Tobacco use date assessed: 07/22/23 Fall risk assessment: No Falls in past year Last assessed Fall Risk: 08/26/23 Dental Screening Dental Screen Date: 08/26/23 Did you have a dental visit in the last 12 months?: No Did you have a dental problem in the last 6 months where you did not have access to dental care?: No Was dental information given to patient?: Patient has dentist HPI HPI Comments History of Present Illness Details This is a 67-year-old female with mild major depression, morbid obesity and obstructive sleep apnea that comes today as a hospital discharge follow-up with discharge date 08/13/2023 due to right lower lobe pneumonia. Patient was admitted 07/29/2023 and came to ER due to dyspnea. Chest x-ray show right lower lobe pneumonia. She completed 5 days of IV antibiotics and 2 more days of antibiotics orally outpatient. Denies any fever and feels markedly improved. Labs were done while hospitalized and she had elevated white blood cells and low hemoglobin as well as elevated random blood glucose and glucosuria. This labs will be repeated. She also has been having more depression than usual due to recent diagnosis of Alzheimer's disease in and does follow with therapies once a week. I will increase the citalopram from 10 mg to 20 mg. She is morbidly obese with a BMI of 41 and was advised to diet and exercise to reach BMI goal less than 30. She complains of severe dozing off while sitting and reading, watching TV, lying down to rest in the afternoon and sitting quietly after lunch without alcohol which gives an [place] score Scale of 12 and sleep study will be order. Use to have CPAP machine in the past which is very old and now. Has pulmonology appointment soon for her moderate asthma. Walks with a cane for gait stability due to chronic low back pain. [facility] Medical History Abdominal pain Morbid obesity Gallstones Common bile duct dilation Elevated TSH Hair loss Murmur Moderate persistent asthma Morbid obesity Mild recurrent major depression B12 deficiency Hair loss Right hip pain Dyslipidemia Foot pain, bilateral Lumbar degenerative disc disease History of vitamin D deficiency History of pernicious anemia Arthritis Back pain History of trigger finger History of left bundle branch block (LBBB) On beta mel at home Breast cancer Mild aortic stenosis Sleep apnea Constipation Dizziness Tinnitus Chronic pain HTN (hypertension) Asthma Depression Surgical History History of cardiac cath Hx of bilateral cataract extraction History of total right knee replacement (TKR) History of total left knee replacement (TKR) History of dilation and curettage Hx of colonoscopy Hx of esophagogastroduodenoscopy History of lymph node dissection of left axilla S/P lumpectomy, left breast Family History Father Prostate cancer Hypertension Mother Skin cancer Dementia Diabetes Daughter Lupus Maternal Grandmother Diabetes Hypertension Maternal Grandfather No problems noted. Paternal Grandmother No problems noted. Paternal Grandfather Cancer Brother Prostate cancer Social History Household Members: Spouse and Family Household Members Other:: Graddaughter Housing: House Do you presently have visiting nurse or other home services: Yes Alcohol intake: never Patient Tobacco Use Status: Never used Tobacco e-Cigarette/Vaping Use: Never Used Second Hand Smoke Exposure: No Substance Use Type: Marijuana Advance Directives Date on File: 08/05/22 service: No Current occupational status: disabled Cognitive needs: Yes Hearing needs: No Vision needs: Yes Questionnaire Thrive Questionnaire Date Thrive assessed: 08/09/23 RYANNE-7 AMB Questionnaire RYANNE-7 Date RYANNE - 7 assessed: 07/22/23 Source: Developed by Drs. Bin Islas, Stephanie Lowery, Markie Escobedo and colleagues, with an educational lo from [employer]. Review of Systems Const All systems reviewed & are unremarkable except as noted in HPI and below Eyes Reports no additional complaints, Denies change in vision and Denies other visual disturbances Card Denies chest pain at rest, Denies chest pain with activity, Denies edema, Denies irregular heart rhythm, Denies claudication, Denies dyspnea, Denies dyspnea on exertion, Denies orthopnea, Denies paroxysmal nocturnal dyspnea and Denies slow heart rate Resp Denies cough, Denies dyspnea and Denies dyspnea on exertion GI Denies abdominal pain, Denies change in bowel habits, Denies excessive flatus, Denies nausea and Denies vomiting Denies urinary incontinence, Denies urinary hesitancy and Denies urinary urgency Musc Denies abnormal gait, Denies atrophy, Denies deformity and Denies limited range of motion Skin/Breast Denies bleeding lesions, Denies changing lesions and Denies rash Neuro Denies abnormal gait and Denies lack of coordination Psych Reports abnormal sleep pattern and Reports anxiety Physical exam (Primary Care) Vital Signs: Last Vital Signs Pulse 62 08/26/23 14:23 BP 112/70 08/26/23 14:23 Pulse Ox 97 08/26/23 14:23 Oxygen Delivery Method Room Air 08/26/23 14:23 BMI result Body Mass Index 41.0 Tobacco/Smoking Status: Tobacco use Status Tobacco use date assessed 07/22/23 08/26/23 14:31 Patient Tobacco Use Status Never used Tobacco 08/26/23 14:31 e-Cigarette/Vaping Use Never Used 08/26/23 14:31 Thrive Assessment: Date of Thrive Assessment Date Thrive assessed 08/09/23 08/26/23 14:31 Const Limitations: ambulation with cane Eyes General: appearance normal, both eyes and all related structures Eyelids: Yes eyelids normal Conjunctivae: conjunctivae normal Neck Neck: Yes normal visual inspection and Yes supple Resp Effort & Inspection: normal respiratory effort Auscultation: clear to auscultation bilaterally Cardio Jugular venous distension: no JVD Rate: regular rate Rhythm: regular rhythm Heart sounds: S1 normal heart sound present and S2 normal heart sound present Extrem General: Yes full ROM Office Procedures Flu Questionnaire Does the patient have a severe egg allergy?: No Immunizations flu vacc [id number] 6mos up(PF) 60 mcg(15 mcgx4)/0.5 mL IM syringe Performing Provider: Adrianna Richter MD Performing Location: [facility] Documented (not given) by: CHELSEA Harrison on 08/26/23 14:58 Reason Not Given: Not Given Assessment and Plan Assessment & Plan (1) Hospital discharge follow-up: Code(s): Z09 - Encounter for follow-up examination after completed treatment for conditions other than malignant neoplasm Plan: Admission Day 08/08/2023. Discharge date 08/13/2023. Completed 5 days of IV antibiotics. Completed 2 days of oral antibiotics as outpatient. X-ray done while hospitalized showing pneumonia. Labs show leukocytosis with anemia as well as glucosuria with elevated random blood glucose. All labs will be repeated. (2) Right lower lobe pneumonia: Code(s): J18.9 - Pneumonia, unspecified organism Plan: Chest x-ray will be repeated. Patient completed antibiotics. (3) Mild major depression: Code(s): F32.0 - Major depressive disorder, single episode, mild Plan: Escitalopram will be increased from 10 mg to 20 mg. Continue counseling once a week. (4) Morbid obesity: Code(s): E66.01 - Morbid (severe) obesity due to excess calories Plan: Start diet and exercise. BMI goal is less than 30. (5) DORA (obstructive sleep apnea): Code(s): G47.33 - Obstructive sleep apnea (adult) (pediatric) Plan: [place] score Scale of 12. Home sleep study ordered. Orders: Orders Vitamin D 25-OH Total Today E55.9 - Vitamin D deficiency, unspecified Influenza [id number] Immunization Today Z23 - Encounter for immunization RT home sleep study Today G47.33 - Obstructive sleep apnea (adult) (pediatric) Complete Blood Count Auto Diff Today D64.9 - Anemia, unspecified IRON PROFILE Today D64.9 - Anemia, unspecified Vitamin B12 and Folate Today E53.8 - Deficiency of other specified B group vitamins Lipid Panel Today E78.5 - Hyperlipidemia, unspecified XR chest 2V Today J18.9 - Pneumonia, unspecified organism Comprehensive [place]. Panel Fast Today N18.30 - Chronic kidney disease, stage 3 unspecified Medications: New escitalopram oxalate 20 mg PO BEDTIME 90 days 90 tabs 1RF Discontinued escitalopram oxalate Discontinued Reason: Patient Completed Course 10 mg PO DAILY 90 days 90 tabs 1RF Coding Level of Care Code TCM Mod MDM <= 14 Days Diagnoses Hospital discharge follow-up Z09 Right lower lobe pneumonia J18.9 Mild major depression F32.0 Morbid obesity E66.01 DORA (obstructive sleep apnea) G47.33 Time Spent (min) 29
[2023-08-26 14:23] VITALS: BP 112/70; PULSE 62; O2SAT 97; BMI 41.0
== END 2023-08-26 14:58 | disposition home or self-care (01) ==
PROVIDERS: PCP Internal Medicine; Visit Provider Internal Medicine
DX: J18.9 Pneumonia, unspecified organism (principal); F32.0 Major depressive disorder, single episode, mild; E66.01 Morbid (severe) obesity due to excess calories; Z68.41 Body mass index [BMI] 40.0-44.9, adult
CPT/HCPCS: 99214

== ENCOUNTER 2023-08-28 13:21 | Outpatient (AMB) | payer OTHER, SELFPAY ==
[2023-08-28 13:34] VITALS: BP 117/77; PULSE 63; O2SAT 93; BMI 41.6
--- NOTE | 2023-08-28 13:34 | A.OFFVIS_ITS ---
Intake Vital Signs 08/28/23 13:34 Height 4 ft 11 in Weight 206 lb 2.115 oz BMI 41.6 BP 117/77 Blood Pressure Location Rt brachial Position Sitting Pulse 63 Pulse Source Doppler Pulse Oximetry (%) 93 Oxygen Delivery Method Room Air Intake Visit Reasons: COPD Allergies latex [LATEX] Allergy (Intermediate, Verified 08/28/23 13:38) RASH oxycodone Adverse Reaction (Severe, Verified 08/28/23 13:38) Itching HPI COPD HPI Details 67-year-old lady, nonsmoker of tobacco p roducts, uses marijuana now followed for asthma and DORA. Patient has been using Advair , albuterol MDI/nebs with reasonable control of her symptoms. She also needs a new sleep study as her last one is remote and she had significant weight changes, also her CPAP is not working. She also complains of worsening lower extremity edema and orthopnea. [facility] Medical History Abdominal pain Morbid obesity Gallstones Common bile duct dilation Elevated TSH Hair loss Murmur Moderate persistent asthma Morbid obesity Mild recurrent major depression B12 deficiency Hair loss Right hip pain Dyslipidemia Foot pain, bilateral Lumbar degenerative disc disease History of vitamin D deficiency History of pernicious anemia Arthritis Back pain History of trigger finger History of left bundle branch block (LBBB) On beta mel at home Breast cancer Mild aortic stenosis Sleep apnea Constipation Dizziness Tinnitus Chronic pain HTN (hypertension) Asthma Depression Surgical History History of cardiac cath Hx of bilateral cataract extraction History of total right knee replacement (TKR) History of total left knee replacement (TKR) History of dilation and curettage Hx of colonoscopy Hx of esophagogastroduodenoscopy History of lymph node dissection of left axilla S/P lumpectomy, left breast Family History Father Prostate cancer Hypertension Mother Skin cancer Dementia Diabetes Daughter Lupus Maternal Grandmother Diabetes Hypertension Maternal Grandfather No problems noted. Paternal Grandmother No problems noted. Paternal Grandfather Cancer Brother Prostate cancer Social History Household Members: Spouse and Family Household Members Other:: Graddaughter Housing: House Do you presently have visiting nurse or other home services: Yes Alcohol intake: never Patient Tobacco Use Status: Never used Tobacco e-Cigarette/Vaping Use: Never Used Second Hand Smoke Exposure: No Substance Use Type: Marijuana Advance Directives Date on File: 08/05/22 service: No Current occupational status: disabled Cognitive needs: Yes Hearing needs: No Vision needs: Yes Review of Systems Const Denies daytime sleepiness, Denies excessive sweating, Denies fatigue, Denies fever(s), Denies lethargy, Denies malaise, Denies night sweats, Denies snoring and Denies weight loss Eyes Denies blurry vision and Denies itchy eyes ENT Denies nasal congestion, Denies post nasal drip, Denies sinus pain, Denies sinus pressure and Denies other ( Thrush) Card Denies chest pain, Reports pedal edema, Denies dyspnea, Reports orthopnea and Reports paroxysmal nocturnal dyspnea Resp Denies cough, Denies hemoptysis, Denies excessive phlegm production, Denies dyspnea, Denies snoring and Denies wheezing GI Denies abdominal pain and Denies heartburn Musc Denies myalgias, Denies arthralgias and Denies joint swelling Skin/Breast Denies rash Neuro Denies memory loss and Denies seizure-like activity Psych Denies abnormal sleep pattern, Denies anxiety and Denies memory loss Endo Denies excessive sweating, Denies fatigue and Denies heat intolerance Natan/Lymph Denies easy bruising Aller/Immun Denies itchy eyes, Denies seasonal rhinorrhea and Denies wheezing Physical Exam Vital Signs: Last Vital Signs Pulse 63 08/28/23 13:34 BP 117/77 08/28/23 13:34 Pulse Ox 93 08/28/23 13:34 Oxygen Delivery Method Room Air 08/28/23 13:34 BMI result Body Mass Index 41.6 Const General: no acute distress and alert Nutritional Appearance: obese Orientation/consciousness: Other orientation findings ( oriented) HEENT Head: Yes atraumatic Eyes General: appearance normal, both eyes and all related structures Sclerae: sclerae normal EOM: EOMs intact bilaterally Neck Neck: Yes supple Lymphatic: no lymphadenopathy noted Resp Effort & Inspection: normal respiratory effort and no use of accessory muscles Auscultation: crackles (Mild bilateral) Cardio Rate: regular rate Rhythm: regular rhythm Heart sounds: no gallops, no murmurs and no rubs Skin General skin exam: other ( warm) Extrem General: No clubbing, No cyanosis and Yes edema (1+ bilateral) Assessment & Plan Assessment & Plan (1) Asthma: Code(s): J45.909 - Unspecified asthma, uncomplicated Qualifiers: Asthma severity: mild Asthma persistence: persistent Asthma complication type: uncomplicated Qualified Code(s): J45.30 - Mild persistent asthma, uncomplicated Plan: Reasonable control on Advair and albuterol MDI/nebs. Continue current regimen. (2) DORA (obstructive sleep apnea): Code(s): G47.33 - Obstructive sleep apnea (adult) (pediatric) Plan: No longer control this patient's CPAP with malfunction. Needs new sleep study as she has significant weight changes. Sleep study is ordered. (3) Lower extremity edema: Code(s): R60.0 - Localized edema Plan: Worsening lower extremity edema, orthopnea, paroxysmal nocturnal dyspnea. Will increase Lasix to 40 mg daily. Medications: New furosemide 40 mg PO QAM 30 tabs 6RF 30 days Coding Level of Care Code Est Pt Level 4 (19019) Diagnoses Mild persistent asthma without complication J45.30 Asthma severity: mild Asthma persistence: persistent Asthma complication type: uncomplicated DORA (obstructive sleep apnea) G47.33 Lower extremity edema R60.0
== END 2023-08-28 13:52 | disposition home or self-care (01) ==
PROVIDERS: PCP Internal Medicine; Visit Provider Internal Medicine Pulmonary Disease
DX: J45.30 Mild persistent asthma, uncomplicated (principal); G47.33 Obstructive sleep apnea (adult) (pediatric); R60.0 Localized edema
CPT/HCPCS: 99214

== ENCOUNTER → 2023-08-28 13:21 | Outpatient (BNVA) | payer OTHER, SELFPAY | PROVIDERS: PCP Internal Medicine; Visit Provider Internal Medicine Pulmonary Disease | DX: J45.30 Mild persistent asthma, uncomplicated (principal); G47.33 Obstructive sleep apnea (adult) (pediatric); R60.0 Localized edema | CPT/HCPCS: 99212 ==

== ENCOUNTER → 2023-09-02 12:59 | Outpatient (REF) | payer OTHER, SELFPAY ==
--- NOTE | 2023-09-02 13:03 | CA_ITS ---
Transthoracic Echocardiogram Patient (Last, First, Middle): Marita Murray R Gender: Female Date of : 1955 Age: 67 Procedure Date: 09/02/2023 Procedure Type: Transthoracic Echocardiogram Location: OP Height: 149.86 cm Weight: 92.53 kg BSA: 1.86 m2 Heart Rate: bpm BP: 118 / 60 mmHg Chef Manager: JOSE MIGUEL Referring MD: Ana Benites ANGIO TECHNOLOGISTPalomo Symptoms: I35.0 - Nonrheumatic aortic (valve) stenosis Study Quality: Technically Difficult, contrast ECG Rhythm: Sinus Conclusions: - The left ventricular systolic function is normal. The calculated ejection fraction is 58% by biplane method. - There is mild aortic valve stenosis. Findings Procedure Information Contrast agent, definity, is being given per protocol without apparent complications. Left Ventricle Normal left ventricular cavity size. There is mildly increased left ventricular wall thickness. The left ventricular systolic function is normal. The calculated ejection fraction is 58% by biplane method. There is no evidence of regional wall motion abnormalities. Evidence suggests grade I (mild) diastolic dysfunction. Right Ventricle Normal right ventricular cavity size and systolic function. Atria Both atria are normal in size. Aortic Valve The aortic valve was not well visualized. There is mild aortic valve stenosis. The peak aortic velocity is 2.39 m/s with a calculated peak gradient of 23 mmHg. The mean gradient is 12 mmHg. The aortic valve area is 1.60 cm2. There is no aortic valve regurgitation. Mitral Valve The mitral valve was not well visualized. There is no mitral valve regurgitation. There is no mitral valve stenosis. Pulmonic Valve The pulmonic valve is likely normal. Tricuspid Valve There is trace tricuspid valve regurgitation. There is no evidence of pulmonary hypertension. Great Vessels The asc aorta is normal in size. Venous The inferior vena cava is normal in size and collapses greater than 50% with inspiration. Pericardium/Pleural There is no evidence of pericardial effusion. Prior Study Comparison No significant change compared to prior study dated: 04/10/2022. Measurements 2D Linear Measurements IVSd: 1.07 0.6-0.9/0.6-1.0 cm LVIDd: 3.95 3.9-5.3/4.2-5.9 cm LVIDd Index: 2.12 2.4-3.2/2.2-3.1 cm/m2 LVIDs: 2.83 2.0-3.6 cm LVPWd: 1.10 0.7-1.1 cm LA Diam: 4.10 2.7-3.8/3.0-4.0 cm LAIDs Index: 2.20 1.5-2.3 cm/m2 LV Mass: 174.29 67-162/88-224 g LV Mass Index: 93.71 43-95/49-115 g/m2 LVOT Diam: 1.90 3.0+(-)1.3 cm 2D Systolic Function EF 4C: 55.20 >55% EF 2C: 61.70 >55% EF BiP: 57.90 >55% Mitral Valve MV Pk E: 0.94 MV PK A: 1.10 MV Decel Time: 192.00 E/A: 0.90 E'Lateral: 8.27 E'Medial: 4.90 E/E' Med: 19.10 E/E' Lat: 11.30 PHT: 56.00 MVA PHT: 3.93 Decel [place]: 4.87 Aortic Valve AoV Pk Erick: 2.39 AoV Mn Erick: 1.61 AoV VTI: 0.50 AoV Pk Grad: 23.00 Aov Mn Grad: 12.00 PRABHJOT Cont.VTI: 1.60 LVOT LVOT Pk Erick: 1.26 LVOT Mn Erick: 0.84 LVOT VTI: 0.28 LVOT Pk Grad: 6.00 LVOT Mn Grad: 3.00 LVOT Diam: 1.90 LVOT Area: 2.84 Diastolic Function MV Pk E: 0.94 MV Pk A: 1.10 E/A: 0.90 E'Medial: 4.90 E/E' Med: 19.10 E' Laterial: 8.27 E/E' Lat: 11.30 Tricuspid Valve RA Press: 3.00 Great Vessels Aorta Sinus of Valsalva: 20.40 2.0-3.[address] [place]: 9.68 1.7-3.4 cm Ao Asc: 2.90 2.1-3.4 cm Updated in Other Vendor System with Status of Final Hector Jackson MD electronically signed on 09/03/2023 4:21:37 PM with status of Final
== END ==
LOC: HO.CARD 12:59
PROVIDERS: PCP Internal Medicine; Visit Provider Nurse Practitioner Family
DX: I35.0 Nonrheumatic aortic (valve) stenosis (principal)
CPT/HCPCS: 93306; Q9957

== ENCOUNTER → 2023-09-02 13:03 | Outpatient (BNV) | payer OTHER, SELFPAY | PROVIDERS: PCP Internal Medicine; Visit Provider Internal Medicine | DX: I35.0 Nonrheumatic aortic (valve) stenosis (principal) | CPT/HCPCS: 93306 ==

== ENCOUNTER → 2023-10-14 14:52 | Outpatient (REF) | payer OTHER, SELFPAY | LOC: HO.SL 14:52 | PROVIDERS: PCP Internal Medicine; Visit Provider Internal Medicine | DX: G47.33 Obstructive sleep apnea (adult) (pediatric) (principal) | CPT/HCPCS: 95806 ==

== ENCOUNTER → 2023-10-14 15:09 | Outpatient (BNV) | payer OTHER, SELFPAY | PROVIDERS: PCP Internal Medicine; Visit Provider Internal Medicine | DX: G47.33 Obstructive sleep apnea (adult) (pediatric) (principal) | CPT/HCPCS: 95806 ==

== ENCOUNTER 2023-11-18 14:19 | Outpatient (AMB) | payer OTHER, SELFPAY ==
[2023-11-18 14:21] VITALS: BP 142/87; PULSE 71; O2SAT 94; BMI 42.3
--- NOTE | 2023-11-18 14:21 | MHC.OFFVIS ---
Intake Vital Signs 11/18/23 14:21 Height 4 ft 11 in Weight 209 lb 7.026 oz BMI 42.3 BP 142/87 H Blood Pressure Location Rt brachial Position Sitting Pulse 71 Pulse Source Doppler Pulse Oximetry (%) 94 Oxygen Delivery Method Room Air Intake Visit Reasons: COPD Allergies latex [LATEX] Allergy (Intermediate, Verified 11/18/23 14:26) RASH oxycodone Adverse Reaction (Severe, Verified 11/18/23 14:26) Itching HPI COPD HPI Details 67-year-old lady, nonsmoker of tobacco products, uses marijuana now followed for asthma and DORA. She has been using Advair and albuterol MDI with reasonable control of her symptoms. She complains of feeling phlegm getting stuck in her chest. Patient completed her sleep study that showed underlying moderate obstructive sleep apnea with AHI of 22. She is pending to receive her new CPAP machine. Her lower extremity edema and orthopnea is better controlled on current regimen of Lasix 40 mg daily. [facility] Medical History Abdominal pain Morbid obesity Gallstones Common bile duct dilation Elevated TSH Hair loss Murmur Moderate persistent asthma Morbid obesity Mild recurrent major depression B12 deficiency Hair loss Right hip pain Dyslipidemia Foot pain, bilateral Lumbar degenerative disc disease History of vitamin D deficiency History of pernicious anemia Arthritis Back pain History of trigger finger History of left bundle branch block (LBBB) On beta mel at home Breast cancer Mild aortic stenosis Sleep apnea Constipation Dizziness Tinnitus Chronic pain HTN (hypertension) Asthma Depression Surgical History History of cardiac cath Hx of bilateral cataract extraction History of total right knee replacement (TKR) History of total left knee replacement (TKR) History of dilation and curettage Hx of colonoscopy Hx of esophagogastroduodenoscopy History of lymph node dissection of left axilla S/P lumpectomy, left breast Family History Father Prostate cancer Hypertension Mother Skin cancer Dementia Diabetes Daughter Lupus Maternal Grandmother Diabetes Hypertension Maternal Grandfather No problems noted. Paternal Grandmother No problems noted. Paternal Grandfather Cancer Brother Prostate cancer Social History Household Members: Spouse and Family Household Members Other:: Graddaughter Housing: House Do you presently have visiting nurse or other home services: Yes Alcohol intake: never Patient Tobacco Use Status: Never used Tobacco e-Cigarette/Vaping Use: Never Used Second Hand Smoke Exposure: No Substance Use Type: Marijuana Advance Directives Date on File: 08/05/22 service: No Current occupational status: disabled Cognitive needs: Yes Hearing needs: No Vision needs: Yes Review of Systems Const Denies daytime sleepiness, Denies excessive sweating, Denies fatigue, Denies fever(s), Denies lethargy, Denies malaise, Denies night sweats, Denies snoring and Denies weight loss Eyes Denies blurry vision and Denies itchy eyes ENT Denies nasal congestion, Denies post nasal drip, Denies sinus pain, Denies sinus pressure and Denies other ( Thrush) Card Denies chest pain, Denies pedal edema, Denies dyspnea, Denies orthopnea and Denies paroxysmal nocturnal dyspnea Resp Denies cough, Denies hemoptysis, Denies excessive phlegm production, Denies dyspnea, Denies snoring and Denies wheezing GI Denies abdominal pain and Denies heartburn Musc Denies myalgias, Denies arthralgias and Denies joint swelling Skin/Breast Denies rash Neuro Denies memory loss and Denies seizure-like activity Psych Denies abnormal sleep pattern, Denies anxiety and Denies memory loss Endo Denies excessive sweating, Denies fatigue and Denies heat intolerance Natan/Lymph Denies easy bruising Aller/Immun Denies itchy eyes, Denies seasonal rhinorrhea and Denies wheezing Physical Exam Vital Signs: Last Vital Signs Pulse 71 11/18/23 14:21 BP 142/87 H 11/18/23 14:21 Pulse Ox 94 11/18/23 14:21 Oxygen Delivery Method Room Air 11/18/23 14:21 BMI result Body Mass Index 42.3 Const General: no acute distress and alert Nutritional Appearance: obese Orientation/consciousness: Other orientation findings ( oriented) HEENT Head: Yes atraumatic Eyes General: appearance normal, both eyes and all related structures Sclerae: sclerae normal EOM: EOMs intact bilaterally Neck Neck: Yes supple Lymphatic: no lymphadenopathy noted Resp Effort & Inspection: normal respiratory effort and no use of accessory muscles Auscultation: clear to auscultation bilaterally Cardio Rate: regular rate Rhythm: regular rhythm Heart sounds: no gallops, no murmurs and no rubs Skin General skin exam: other ( warm) Extrem General: No clubbing, No cyanosis and No edema Assessment & Plan Assessment & Plan (1) Asthma: Code(s): J45.909 - Unspecified asthma, uncomplicated Qualifiers: Asthma severity: mild Asthma persistence: persistent Asthma complication type: uncomplicated Qualified Code(s): J45.30 - Mild persistent asthma, uncomplicated Plan: Well controlled on Advair and albuterol MDI. Continue current regimen. (2) DORA (obstructive sleep apnea): Code(s): G47.33 - Obstructive sleep apnea (adult) (pediatric) Plan: Sleep study results reviewed. Underlying moderate obstructive sleep apnea with AHI of 22. Patient is pending to receive her CPAP machine. (3) Lower extremity edema: Code(s): R60.0 - Localized edema Plan: Reasonable control on current regimen of Lasix 40 mg daily. Continue current regimen. Medications: New guaifenesin ER (Mucinex) 1,200 mg (2 x 600 mg) PO BID 5 days 20 tabs 0RF Refilled azithromycin For 250 mg dose pack: take 500 mg today (day 1), then 250 mg for 4 days (days 2-5) PO 6 tabs 0RF Coding Level of Care Code Est Pt Level 4 (60693) Diagnoses Mild persistent asthma without complication J45.30 Asthma severity: mild Asthma persistence: persistent Asthma complication type: uncomplicated DORA (obstructive sleep apnea) G47.33 Lower extremity edema R60.0
== END 2023-11-18 14:41 | disposition home or self-care (01) ==
PROVIDERS: PCP Internal Medicine; Visit Provider Internal Medicine Pulmonary Disease
DX: J45.30 Mild persistent asthma, uncomplicated (principal); G47.33 Obstructive sleep apnea (adult) (pediatric); R60.0 Localized edema
CPT/HCPCS: 99214

== ENCOUNTER → 2023-11-18 14:19 | Outpatient (BNVA) | payer OTHER, SELFPAY | PROVIDERS: PCP Internal Medicine; Visit Provider Internal Medicine Pulmonary Disease | DX: J45.30 Mild persistent asthma, uncomplicated (principal); G47.33 Obstructive sleep apnea (adult) (pediatric); R60.0 Localized edema; Z79.899 Other long term (current) drug therapy | CPT/HCPCS: 99212 ==

== ENCOUNTER 2023-12-29 09:25 | Outpatient (REF) | payer OTHER, SELFPAY ==
[2023-12-29 09:52] LABS: MANUAL DIFF FLAG NO
[2023-12-29 10:46] LABS: Basophils Absolute Auto 0.1 X10*3/uL (0.0-0.2); Eosinophils Absolute Auto 0.1 X10*3/uL (0.0-0.4); Eosinophils Percent Auto 1.9 % (0-4); Hematocrit 39.4 % (37.0-47.0); Hemoglobin 12.8 g/dl (12.0-16.0); Imm Gran Abs Auto 0.01 X10*3/uL (0.00-0.03); Imm Gran Pct Auto 0.2 % (0.0-0.4); Lymphocytes Absolute Auto 1.9 X10*3/uL (1.2-4.9); Lymphocytes Percent Auto 29.9 % (20-40); Mean Corpuscular HGB Conc 32.5 g/dl (31.0-35.0); Mean Corpuscular Hemoglobin 25.7 pg (27.0-33.0); Mean Platelet Volume 9.5 fL (9.4-12.3); Monocytes Absolute Auto 0.3 X10*3/uL (0.1-1.2); Monocytes Percent Auto 5.3 % (2-11); Neutrophils Absolute Auto 3.8 x10*3/uL (2.0-8.3); Neutrophils Percent Auto 61.7 % (45-73); Platelet Count 220 X10*3/uL (160-400); Red Blood Count 4.99 X10*6/uL (4.20-5.50); Red Cell Distribution Width 15.3 % (11.0-16.0); White Blood Count 6.2 X10*3/uL (4.8-10.8)
[2023-12-29 11:51] LABS: Alanine Aminotransferase 18 U/L (0-31); Albumin Level 4.1 g/dL (3.5-5.0); Alkaline Phosphatase 97 U/L (39-117); Anion Gap 15 (12-20); Aspartate Amino Transferase 23 U/L (5-31); Bilirubin Total 1.2 mg/dL (0.0-1.0); Blood Urea Nitrogen 13 mg/dL (9-16); Calcium 9.6 mg/dL (8.4-10.2); Carbon Dioxide 29 mmol/L (22-29); Chloride 104 mmol/L (96-108); Cholesterol 180 mg/dL (<200); Estimated Glomerular Filt Rate > 60; Glucose Fasting 102 mg/dL (60-99); HDL Cholesterol 69 mg/dL (>40); Iron 71 mcg/dL (30-160); LDL Cholesterol Calculated 85 mg/dL (<100); Percent Iron Saturation 23 % (15-50); Potassium 3.1 mmol/L (3.3-5.1); Sodium 145 mmol/L (135-145); Total Iron Binding Capacity 313 mcg/dL (228-428); Total Protein 7.4 g/dL (6.5-8.0); Triglycerides 134 mg/dL (<150); Unsaturated Iron Binding 242 ug/dL; Vitamin D 25-OH Total 27.6 ng/mL (>30)
[2023-12-29 12:08] LABS: Folate 10.2 ng/mL (> or = 4.0); Vitamin B12 821 pg/mL (200-900)
== END 2023-12-29 09:26 | disposition home or self-care (01) ==
LOC: HO.LAB 09:25
PROVIDERS: PCP Internal Medicine; Visit Provider Internal Medicine
DX: N18.30 Chronic kidney disease, stage 3 unspecified (principal); E78.5 Hyperlipidemia, unspecified; E55.9 Vitamin D deficiency, unspecified; E53.8 Deficiency of other specified B group vitamins; D64.9 Anemia, unspecified
CPT/HCPCS: 36415; 80053; 80061; 82306; 82607; 82746; 83540; 85025

== ENCOUNTER 2024-01-20 14:38 | Outpatient (AMB) | payer OTHER, SELFPAY ==
--- NOTE | 2024-01-20 14:40 | A.OFFPC_ITS ---
Vital Signs 01/20/24 14:41 Height 4 ft 11 in Weight 208 lb BMI 42.0 BP 126/70 Blood Pressure Location Lt brachial Position Sitting Intake Visit Reasons: asthma Intake Note: Patient here fora follow up Asthma, abdominal discomfort/pain, hair loss Content Director Required: No Accompanied by: Self / Same As Patient Allergies latex [LATEX] Allergy (Intermediate, Verified 01/20/24 15:01) RASH oxycodone Adverse Reaction (Severe, Verified 01/20/24 15:01) Itching Medication List - Last Reconciled 01/20/24 by Adrianna Richter MD Advair HFA 230-21 mcg/actuation (fluticasone propion-salmeterol) 2 puffs inhalation Q12H NS albuterol sulfate 90 mcg/actuation (Proair Digihaler) 2 inhalations inhalation Q4H PRN albuterol sulfate 2.5 mg (3 mL) inhalation Q6H PRN 30 days atorvastatin 20 mg PO DAILY 90 days CPAP (CPAP Machine/Device) autoPAP 6-16 cmH2O cyanocobalamin (vitamin B-12) (Vitamin B-12) 1,000 mcg PO DAILY escitalopram oxalate 20 mg PO BEDTIME 90 days ferrous sulfate 324 mg PO DAILY 90 days furosemide 40 mg PO QAM 30 days metoprolol succinate ER 25 mg PO DAILY 90 days miscellaneous medical supply GRAB BAR 18 miscellaneous medical supply toilet safety frame nebulizers (AeroEclipse II Nebulizer) As directed oxycodone-acetaminophen 7.5-325 mg 1 tab PO Q8H PRN 30 days [showerhead As directed] walker (Ultra-Light Rollator misc) As directed Tobacco use date assessed: 01/20/24 Fall risk assessment: No Falls in past year Last assessed Fall Risk: 01/20/24 Dental Screening Dental Screen Date: 01/20/24 Did you have a dental visit in the last 12 months?: Yes Did you have a dental problem in the last 6 months where you did not have access to dental care?: No Was dental information given to patient?: Patient has dentist HPI HPI Comments History of Present Illness Details This is a 68-year-old female with mild major depression, morbid obesity and pure hypercholesterolemia that complains of abdominal pain that has been bothering her for few months. She wants to be referred to Gastroenterology. Depression stable and she declines medication. PHQ-9 does not correlate with clinical exam. She is morbidly obese with a BMI of 42 and was advised to diet and exercise to reach BMI goal less than 30. Cholesterol controlled with statins. Use a cane for gait stability due to chronic low back pain. [facility] Medical History (Updated 01/20/24 @ 18:27 by Adrinana Richter MD) CKD (chronic kidney disease) stage 3, GFR 30-59 ml/min Acute hypoxemic respiratory failure Sepsis Acute kidney injury Abdominal pain Morbid obesity Gallstones Common bile duct dilation Elevated TSH Hair loss Murmur Moderate persistent asthma Morbid obesity Mild recurrent major depression B12 deficiency Hair loss Right hip pain Dyslipidemia Foot pain, bilateral Lumbar degenerative disc disease History of vitamin D deficiency History of pernicious anemia Arthritis Back pain History of trigger finger History of left bundle branch block (LBBB) On beta mel at home Breast cancer Mild aortic stenosis Sleep apnea Constipation Dizziness Tinnitus Chronic pain HTN (hypertension) Asthma Depression Surgical History History of cardiac cath Hx of bilateral cataract extraction History of total right knee replacement (TKR) History of total left knee replacement (TKR) History of dilation and curettage Hx of colonoscopy Hx of esophagogastroduodenoscopy History of lymph node dissection of left axilla S/P lumpectomy, left breast Family History Father Prostate cancer Hypertension Mother Skin cancer Dementia Diabetes Daughter Lupus Maternal Grandmother Diabetes Hypertension Maternal Grandfather No problems noted. Paternal Grandmother No problems noted. Paternal Grandfather Cancer Brother Prostate cancer Social History Household Members: Spouse and Family Household Members Other:: Graddaughter Housing: House Do you presently have visiting nurse or other home services: Yes Alcohol intake: never Patient Tobacco Use Status: Never used Tobacco e-Cigarette/Vaping Use: Never Used Second Hand Smoke Exposure: No Substance Use Type: Marijuana Advance Directives Date on File: 08/05/22 service: No Current occupational status: disabled Cognitive needs: Yes Hearing needs: No Vision needs: Yes Questionnaire PHQ-9 Over the last 2 weeks, how often have you been bothered by any of the following problems? 1. Little interest or pleasure in doing things: more than half the days 2. Feeling down, depressed, or hopeless: nearly every day 3. Trouble falling or staying asleep, or sleeping too much: nearly every day 4. Feeling tired or having little energy: nearly every day 5. Poor appetite or overeating: nearly every day 6. Feeling bad about yourself - or that you are a failure or have let yourself or your family down: nearly every day 7. Trouble concentrating on things, such as reading the newspaper or watching television: nearly every day 8. Moving or speaking so slowly that other people could have noticed. Or the opposite - being so fidgety or restless that you have been moving around a lot more than usual: several days 9. Thoughts that you would be better off or of hurting yourself in some way: not at all Total score: 21 Depression Screening Interpretation: Positive (no suicidal thoughts) Depression Screening Follow-up: Existing condition and In treatment Depression Screening Done: Yes 75702 - PHQ-9 Billing: Yes Source: Developed by Drs. Bin Islas, Stephanie Lowery, Markie Escobedo and colleagues, with an educational lo from [employer]. Thrive Questionnaire Date Thrive assessed: 01/20/24 I am a: Patient What is your living situation today?: I have a steady place to live Within the past 12 months, did the food you bought not last and you didn't have the money to get more?: Never true Within the past 12 months, did you worry whether your food would run out before you got money to buy more?: Never true Do you have trouble paying for medicines?: No Do you have trouble getting transportation to medical appointments?: No Do you have trouble paying your heating and electricity bill?: No Do you have trouble taking care of your child, family member or friend?: No Do you have trouble with day-to-day activities such as bathing, preparing meals, shopping, managing finances, etc.?: No Are you currently unemployed and looking for a job?: No Are you interested in more education?: No Please select the resources that you would like help with: None Currently or been in a relationship where the following occur: no concerns reported THRIVE Score: 0 AUDIT C Alcohol Use Questionnaire (AUDIT-C) 1. How often do you have a drink containing alcohol?: Never Total Score: 0 RYANNE-7 AMB Questionnaire RYANNE-7 Date RYANNE - 7 assessed: 01/20/24 Feeling nervous, anxious, or on edge: 1 = Several days Not being able to stop or control worryin = Not at all Worrying too much about different things: 1 = Several days Trouble relaxin = Not at all Being so restless that it is hard to sit still: 0 = Not at all Becoming easily annoyed or irritable: 0 = Not at all Feeling afraid as if something awful might happen: 0 = Not at all Total RYANNE-7 score (0-4 normal; 5-9 mild; 10-14 moderate; 15-21 severe): 2 Source: Developed by Drs. Bin Islas, Stephanie Lowery, Markie Escobedo and colleagues, with an educational lo from [employer]. RYANNE-7 Assessment Billing RYANNE-7 Assessment Tool: RYANNE-7 Assessment 72920 Review of Systems Const All systems reviewed & are unremarkable except as noted in HPI and below Eyes Reports no additional complaints, Denies change in vision and Denies other visual disturbances Card Denies chest pain at rest, Denies chest pain with activity, Denies edema, Denies irregular heart rhythm, Denies claudication, Denies dyspnea, Denies dyspnea on exertion, Denies orthopnea, Denies paroxysmal nocturnal dyspnea and Denies slow heart rate Resp Denies cough, Denies dyspnea and Denies dyspnea on exertion GI Denies abdominal pain, Denies change in bowel habits, Denies excessive flatus, Denies nausea and Denies vomiting Denies urinary incontinence, Denies urinary hesitancy and Denies urinary urgency Physical exam (Primary Care) Vital Signs: Last Vital Signs BP 126/70 01/20/24 14:41 BMI result Body Mass Index 42.0 Tobacco/Smoking Status: Tobacco use Status Tobacco use date assessed 01/20/24 01/20/24 14:52 Patient Tobacco Use Status Never used Tobacco 01/20/24 14:52 e-Cigarette/Vaping Use Never Used 01/20/24 14:52 PHQ-9: PHQ-9 Score PHQ-9: Total score 21 01/20/24 16:05 Depression Screening Interpretation: Positive (no suicidal thoughts) Depression Screening Follow-up: Existing condition and In treatment Thrive Assessment: Date of Thrive Assessment Date Thrive assessed 01/20/24 01/20/24 14:52 Currently or been in a relationship where the following occur: no concerns reported Resp Effort & Inspection: normal respiratory effort Auscultation: clear to auscultation bilaterally Cardio Jugular venous distension: no JVD Rate: regular rate Rhythm: regular rhythm Heart sounds: S1 normal heart sound present and S2 normal heart sound present Extrem General: Yes full ROM Psych Appearance: grossly normal Assessment and Plan Assessment & Plan (1) Mild major depression: Code(s): F32.0 - Major depressive disorder, single episode, mild Plan: Declines medication. (2) Morbid obesity: Code(s): E66.01 - Morbid (severe) obesity due to excess calories Plan: Start diet and exercise. BMI goal is less than 30. (3) Abdominal pain: Code(s): R10.9 - Unspecified abdominal pain Plan: Referred to Gastroenterology. (4) Pure hypercholesterolemia: Code(s): E78.00 - Pure hypercholesterolemia, unspecified Plan: Continue statins. Orders: Orders Thyroid Stimulating Hormone Today L65.9 - Nonscarring hair loss, unspecified Referrals Gastroenterology Referral R10.9 - Unspecified abdominal pain Coding Level of Care Code Est Pt Level 4 (06390) Diagnoses Mild major depression F32.0 Morbid obesity E66.01 Abdominal pain R10.9 Pure hypercholesterolemia E78.00 Additional Codes RYANNE-7 Assessment Billing - RYANNE-7 Assessment Tool: RYANNE-7 Assessment 00879 ([id number]) Time Spent (min) 23
[2024-01-20 14:41] VITALS: BP 126/70; BMI 42.0
== END 2024-01-20 15:11 | disposition home or self-care (01) ==
PROVIDERS: PCP Internal Medicine; Visit Provider Internal Medicine
DX: R10.9 Unspecified abdominal pain (principal); F32.0 Major depressive disorder, single episode, mild; E66.01 Morbid (severe) obesity due to excess calories; Z68.41 Body mass index [BMI] 40.0-44.9, adult; E78.00 Pure hypercholesterolemia, unspecified
CPT/HCPCS: 99214

== ENCOUNTER 2024-02-09 09:01 | Outpatient (AMB) | payer OTHER, SELFPAY ==
[2024-02-09 09:08] VITALS: BP 136/72; PULSE 60; O2SAT 97; BMI 41.0
--- NOTE | 2024-02-09 09:08 | MHC.PC.OV ---
Vital Signs 02/09/24 09:08 Height 4 ft 11 in Weight 203 lb 0.8 oz BMI 41.0 BP 136/72 Blood Pressure Location Lt brachial Position Sitting Pulse 60 Pulse Source Pulse Oximeter Pulse Oximetry (%) 97 Oxygen Delivery Method Room Air Intake Visit Reasons: CPAP test Clinical Engineering Director Required: No Accompanied by: Self / Same As Patient Allergies latex [LATEX] Allergy (Intermediate, Verified 02/09/24 09:30) RASH oxycodone Adverse Reaction (Severe, Verified 02/09/24 09:30) Itching Medication List - Last Reconciled 02/09/24 by Adrianna Richter MD Advair HFA 230-21 mcg/actuation (fluticasone propion-salmeterol) 2 puffs inhalation Q12H NS albuterol sulfate 90 mcg/actuation (Proair Digihaler) 2 inhalations inhalation Q4H PRN albuterol sulfate 2.5 mg (3 mL) inhalation Q6H PRN 30 days atorvastatin 20 mg PO DAILY 90 days CPAP (CPAP Machine/Device) autoPAP 6-16 cmH2O cyanocobalamin (vitamin B-12) (Vitamin B-12) 1,000 mcg PO DAILY escitalopram oxalate 20 mg PO BEDTIME 90 days ferrous sulfate 324 mg PO DAILY 90 days furosemide 40 mg PO QAM 30 days metoprolol succinate ER 25 mg PO DAILY 90 days miscellaneous medical supply GRAB BAR 18 miscellaneous medical supply toilet safety frame nebulizers (AeroEclipse II Nebulizer) As directed oxycodone-acetaminophen 7.5-325 mg 1 tab PO Q8H PRN 30 days [showerhead As directed] walker (Ultra-Light Rollator mis) As directed Tobacco use date assessed: 02/09/24 Fall risk assessment: No Falls in past year Last assessed Fall Risk: 02/09/24 Dental Screening Dental Screen Date: 01/20/24 HPI HPI Comments History of Present Illness Details This is a 68-year-old female with mild major depression, pure hypercholesterolemia, morbid obesity and obstructive sleep apnea on CPAP that comes today for follow-up on her conditions. Depression well controlled with escitalopram. On statins for her elevated cholesterol with no side effects. She is morbidly obese with a BMI of 41 and was advised to do diet and exercise as tolerated to reach BMI goal less than 30. Declines weight loss surgery. Sleep study done October 2023 shows moderate to severe obstructive sleep apnea and she started using a CPAP in which she feels more rested and she admits being compliant to the CPAP machine. Walks with a cane for gait stability. No chest pain or shortness of breath. [facility] Medical History (Updated 02/09/24 @ 12:07 by Adrianna Richter MD) CKD (chronic kidney disease) stage 3, GFR 30-59 ml/min Acute hypoxemic respiratory failure Sepsis Acute kidney injury Abdominal pain Morbid obesity Gallstones Common bile duct dilation Elevated TSH Hair loss Murmur Moderate persistent asthma Morbid obesity Mild recurrent major depression B12 deficiency Hair loss Right hip pain Dyslipidemia Foot pain, bilateral Lumbar degenerative disc disease History of vitamin D deficiency History of pernicious anemia Arthritis Back pain History of trigger finger History of left bundle branch block (LBBB) On beta mel at home Breast cancer Mild aortic stenosis Sleep apnea Constipation Dizziness Tinnitus Chronic pain HTN (hypertension) Asthma Depression Surgical History History of cardiac cath Hx of bilateral cataract extraction History of total right knee replacement (TKR) History of total left knee replacement (TKR) History of dilation and curettage Hx of colonoscopy Hx of esophagogastroduodenoscopy History of lymph node dissection of left axilla S/P lumpectomy, left breast Family History Father Prostate cancer Hypertension Mother Skin cancer Dementia Diabetes Daughter Lupus Maternal Grandmother Diabetes Hypertension Maternal Grandfather No problems noted. Paternal Grandmother No problems noted. Paternal Grandfather Cancer Brother Prostate cancer Social History Household Members: Spouse and Family Household Members Other:: Graddaughter Housing: House Do you presently have visiting nurse or other home services: Yes Alcohol intake: never Patient Tobacco Use Status: Never used Tobacco e-Cigarette/Vaping Use: Never Used Second Hand Smoke Exposure: No Substance Use Type: Marijuana Advance Directives Date on File: 08/05/22 service: No Current occupational status: disabled Cognitive needs: Yes Hearing needs: No Vision needs: Yes Questionnaire Thrive Questionnaire Date Thrive assessed: 01/20/24 AUDIT C Alcohol Use Questionnaire (AUDIT-C) 1. How often do you have a drink containing alcohol?: Never 3. How often do you have six or more drinks on one occasion?: Never Total Score: 0 RYANNE-7 AMB Questionnaire RYANNE-7 Date RYANNE - 7 assessed: 01/20/24 Source: Developed by Drs. Bni Islas, Stephanie Lowery, Markie Escobedo and colleagues, with an educational lo from [employer]. Review of Systems Const All systems reviewed & are unremarkable except as noted in HPI and below Eyes Reports no additional complaints, Denies change in vision and Denies other visual disturbances Card Denies chest pain at rest, Denies chest pain with activity, Denies edema, Denies irregular heart rhythm, Denies claudication, Denies dyspnea, Denies dyspnea on exertion, Denies orthopnea, Denies paroxysmal nocturnal dyspnea and Denies slow heart rate Resp Denies cough, Denies dyspnea and Denies dyspnea on exertion GI Denies abdominal pain, Denies change in bowel habits, Denies excessive flatus, Denies nausea and Denies vomiting Denies urinary incontinence, Denies urinary hesitancy and Denies urinary urgency Physical exam (Primary Care) Vital Signs: Last Vital Signs Pulse 60 02/09/24 09:08 BP 136/72 02/09/24 09:08 Pulse Ox 97 02/09/24 09:08 Oxygen Delivery Method Room Air 02/09/24 09:08 BMI result Body Mass Index 41.0 Tobacco/Smoking Status: Tobacco use Status Tobacco use date assessed 02/09/24 02/09/24 09:09 Patient Tobacco Use Status Never used Tobacco 02/09/24 09:09 e-Cigarette/Vaping Use Never Used 02/09/24 09:09 Thrive Assessment: Date of Thrive Assessment Date Thrive assessed 01/20/24 02/09/24 09:09 Resp Effort & Inspection: normal respiratory effort Auscultation: clear to auscultation bilaterally Cardio Jugular venous distension: no JVD Rate: regular rate Rhythm: regular rhythm Heart sounds: S1 normal heart sound present and S2 normal heart sound present Extrem General: Yes full ROM Assessment and Plan Assessment & Plan (1) Mild major depression: Code(s): F32.0 - Major depressive disorder, single episode, mild Plan: Continue escitalopram. (2) Pure hypercholesterolemia: Code(s): E78.00 - Pure hypercholesterolemia, unspecified Plan: Continue statins. (3) Morbid obesity: Code(s): E66.01 - Morbid (severe) obesity due to excess calories Plan: Start diet and exercise. BMI goal is less than 30. (4) DORA on CPAP: Code(s): G47.33 - Obstructive sleep apnea (adult) (pediatric) Plan: Continue CPAP machine. Orders: Orders Vitamin D 25-OH Total 4 Months E55.9 - Vitamin D deficiency, unspecified Complete Blood Count Auto Diff 4 Months D64.9 - Anemia, unspecified Vitamin B12 and Folate 4 Months E53.8 - Deficiency of other specified B group vitamins Lipid Panel 4 Months E78.5 - Hyperlipidemia, unspecified Comprehensive [place]. Panel Fast 4 Months E78.00 - Pure hypercholesterolemia, unspecified Medications: Discontinued ferrous sulfate Discontinued Reason: Patient Completed Course 324 mg PO DAILY 90 days 90 tabs 1RF Coding Level of Care Code Est Pt Level 4 (53857) Diagnoses Mild major depression F32.0 Pure hypercholesterolemia E78.00 Morbid obesity E66.01 DORA on CPAP G47.33 Time Spent (min) 25
== END 2024-02-09 09:40 | disposition home or self-care (01) ==
PROVIDERS: PCP Internal Medicine; Visit Provider Internal Medicine
DX: G47.33 Obstructive sleep apnea (adult) (pediatric) (principal); F32.0 Major depressive disorder, single episode, mild; E78.00 Pure hypercholesterolemia, unspecified
CPT/HCPCS: 99214

== ENCOUNTER 2024-03-29 11:33 | Outpatient (AMB) | payer MEDICARE, SELFPAY ==
[2024-03-29 11:37] VITALS: BP 106/64; PULSE 75; O2SAT 96; BMI 41.6
--- NOTE | 2024-03-29 11:37 | MHC.OFFVIS ---
Vital Signs 03/29/24 11:37 Height 4 ft 11 in Weight 206 lb 2.115 oz BMI 41.6 BP 106/64 Blood Pressure Location Rt brachial Position Sitting Pulse 75 Pulse Source Doppler Pulse Oximetry (%) 96 Oxygen Delivery Method Room Air Intake Visit Reasons: copd Allergies latex [LATEX] Allergy (Intermediate, Verified 03/29/24 11:42) RASH oxycodone Adverse Reaction (Severe, Verified 03/29/24 11:42) Itching HPI HPI copd: Details: 68-year-old lady, nonsmoker of tobacco products, uses marijuana now followed for asthma , orthopnea, and DORA. She has been using Advair and albuterol MDI with reasonable control of her symptoms. patient has received her CPAP machine has been using good symptom control. She also continues on Lasix 40 mg daily with good control of her lower extremity edema and orthopnea. She denies recent exacerbations. [facility] Medical History (Updated 02/09/24 @ 12:07 by Adrianna Richter MD) CKD (chronic kidney disease) stage 3, GFR 30-59 ml/min Acute hypoxemic respiratory failure Sepsis Acute kidney injury Abdominal pain Morbid obesity Gallstones Common bile duct dilation Elevated TSH Hair loss Murmur Moderate persistent asthma Morbid obesity Mild recurrent major depression B12 deficiency Hair loss Right hip pain Dyslipidemia Foot pain, bilateral Lumbar degenerative disc disease History of vitamin D deficiency History of pernicious anemia Arthritis Back pain History of trigger finger History of left bundle branch block (LBBB) On beta mel at home Breast cancer Mild aortic stenosis Sleep apnea Constipation Dizziness Tinnitus Chronic pain HTN (hypertension) Asthma Depression Surgical History History of cardiac cath Hx of bilateral cataract extraction History of total right knee replacement (TKR) History of total left knee replacement (TKR) History of dilation and curettage Hx of colonoscopy Hx of esophagogastroduodenoscopy History of lymph node dissection of left axilla S/P lumpectomy, left breast Family History Father Prostate cancer Hypertension Mother Skin cancer Dementia Diabetes Daughter Lupus Maternal Grandmother Diabetes Hypertension Maternal Grandfather No problems noted. Paternal Grandmother No problems noted. Paternal Grandfather Cancer Brother Prostate cancer Social History Household Members: Spouse and Family Household Members Other:: Graddaughter Housing: House Do you presently have visiting nurse or other home services: Yes Alcohol intake: never Patient Tobacco Use Status: Never used Tobacco e-Cigarette/Vaping Use: Never Used Second Hand Smoke Exposure: No Substance Use Type: Marijuana Advance Directives Date on File: 08/05/22 service: No Current occupational status: disabled Cognitive needs: Yes Hearing needs: No Vision needs: Yes Review of Systems Const Denies daytime sleepiness, Denies excessive sweating, Denies fatigue, Denies fever(s), Denies lethargy, Denies malaise, Denies night sweats, Denies snoring and Denies weight loss Eyes Denies blurry vision and Denies itchy eyes ENT Denies nasal congestion, Denies post nasal drip, Denies sinus pain, Denies sinus pressure and Denies other ( Thrush) Card Denies chest pain, Denies pedal edema, Denies dyspnea, Denies orthopnea and Denies paroxysmal nocturnal dyspnea Resp Denies cough, Denies hemoptysis, Denies excessive phlegm production, Denies dyspnea, Denies snoring and Denies wheezing GI Denies abdominal pain and Denies heartburn Musc Denies myalgias, Denies arthralgias and Denies joint swelling Skin/Breast Denies rash Neuro Denies memory loss and Denies seizure-like activity Psych Denies abnormal sleep pattern, Denies anxiety and Denies memory loss Endo Denies excessive sweating, Denies fatigue and Denies heat intolerance Natan/Lymph Denies easy bruising Aller/Immun Denies itchy eyes, Denies seasonal rhinorrhea and Denies wheezing Physical Exam Vital Signs: Last Vital Signs Pulse 75 03/29/24 11:37 BP 106/64 03/29/24 11:37 Pulse Ox 96 03/29/24 11:37 Oxygen Delivery Method Room Air 03/29/24 11:37 BMI result Body Mass Index 41.6 Const General: no acute distress and alert Nutritional Appearance: obese Orientation/consciousness: Other orientation findings ( oriented) HEENT Head: Yes atraumatic Eyes General: appearance normal, both eyes and all related structures Sclerae: sclerae normal EOM: EOMs intact bilaterally Neck Neck: Yes supple Lymphatic: no lymphadenopathy noted Resp Effort & Inspection: normal respiratory effort and no use of accessory muscles Auscultation: clear to auscultation bilaterally Cardio Rate: regular rate Rhythm: regular rhythm Heart sounds: no gallops, no murmurs and no rubs Skin General skin exam: other ( warm) Extrem General: No clubbing, No cyanosis and No edema Assessment & Plan Assessment & Plan (1) Asthma: Code(s): J45.909 - Unspecified asthma, uncomplicated Category: Medical Qualifiers: Asthma severity: mild Asthma persistence: persistent Asthma complication type: uncomplicated Qualified Code(s): J45.30 - Mild persistent asthma, uncomplicated Plan: Well controlled on current regimen of Advair, albuterol MDI, and nebs. Continue current regimen. (2) DORA (obstructive sleep apnea): Code(s): G47.33 - Obstructive sleep apnea (adult) (pediatric) Category: Medical Plan: Patient has received her CPAP machine and started using it with good symptomatic control. Patient has been encouraged to be more compliant with her CPAP therapy. (3) Dyspnea: Code(s): R06.00 - Dyspnea, unspecified Category: Medical Plan: Well controlled on current regimen of Lasix 40 mg daily. Coding Level of Care Code Est Pt Level 4 (13632) Diagnoses Mild persistent asthma without complication J45.30 Asthma severity: mild Asthma persistence: persistent Asthma complication type: uncomplicated DORA (obstructive sleep apnea) G47.33 Dyspnea R06.00
== END 2024-03-29 11:47 | disposition home or self-care (01) ==
PROVIDERS: PCP Internal Medicine; Visit Provider Internal Medicine Pulmonary Disease
DX: J45.30 Mild persistent asthma, uncomplicated (principal); G47.33 Obstructive sleep apnea (adult) (pediatric); R06.00 Dyspnea, unspecified
CPT/HCPCS: 99214

== ENCOUNTER → 2024-03-29 11:33 | Outpatient (BNVA) | payer MEDICARE, SELFPAY | PROVIDERS: PCP Internal Medicine; Visit Provider Internal Medicine Pulmonary Disease | DX: J45.30 Mild persistent asthma, uncomplicated (principal); G47.33 Obstructive sleep apnea (adult) (pediatric); R06.00 Dyspnea, unspecified | CPT/HCPCS: 99212 ==

== ENCOUNTER 2024-05-25 10:00 | Outpatient (AMB) | payer OTHER, SELFPAY ==
--- NOTE | 2024-05-25 10:08 | AM.OFFVISMDC ---
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 Required: No Accompanied by: Spouse Allergies latex [LATEX] Allergy (Intermediate, Verified 05/25/24 10:26) RASH oxycodone Adverse Reaction (Severe, Verified 05/25/24 10:26) Itching Medication List - Last Reconciled 05/25/24 by Adrianna Richter MD Advair HFA 230-21 mcg/actuation (fluticasone propion-salmeterol) 2 puffs inhalation Q12H NS albuterol sulfate 90 mcg/actuation (Proair Digihaler) 2 inhalations inhalation Q4H PRN albuterol sulfate 2.5 mg (3 mL) inhalation Q6H PRN 30 days atorvastatin 20 mg PO DAILY 90 days CPAP (CPAP Machine/Device) autoPAP 6-16 cmH2O cyanocobalamin (vitamin B-12) (Vitamin B-12) 1,000 mcg PO DAILY escitalopram oxalate 20 mg PO BEDTIME 90 days furosemide 40 mg PO QAM 30 days metoprolol succinate ER 25 mg PO DAILY 90 days miscellaneous medical supply GRAB BAR 18 miscellaneous medical supply toilet safety frame nebulizers (AeroEclipse II Nebulizer) As directed oxycodone-acetaminophen 7.5-325 mg 1 tab PO Q8H PRN 30 days [showerhead As directed] walker (Ultra-Light Rollator misc) As directed HPI HPI Comments History of Present Illness Details This is a 68-year-old female with morbid obesity and severe major depression that comes accompanied by which has dementia for her Medicare wellness exam. She is morbidly obese with a BMI of 42.2 and was advised to diet and exercise as tolerated to reach BMI goal less than 30. She has severe major depression but no suicidal thoughts and follows with psychiatry. Mammogram was done less than a year ago as per patient and he was normal. Colonoscopy done 2020. DEXA scan done 2021. DEXA will be repeated this year. Ppp handed to patient. Walks with a cane for gait stability. Also complains of neck pain and left shoulder pain and x-rays will be order and for her shoulder will be referred to Ortho. PFSH Medical History (Updated 05/25/24 @ 12:18 by Adrianna Richter MD) CKD (chronic kidney disease) stage 3, GFR 30-59 ml/min Acute hypoxemic respiratory failure Sepsis Acute kidney injury Abdominal pain Morbid obesity Gallstones Common bile duct dilation Elevated TSH Hair loss Murmur Moderate persistent asthma Morbid obesity Mild recurrent major depression B12 deficiency Hair loss Right hip pain Dyslipidemia Foot pain, bilateral Lumbar degenerative disc disease History of vitamin D deficiency History of pernicious anemia Arthritis Back pain History of trigger finger History of left bundle branch block (LBBB) On beta mel at home Breast cancer Mild aortic stenosis Sleep apnea Constipation Dizziness Tinnitus Chronic pain HTN (hypertension) Asthma Depression Surgical History (Updated 05/25/24 @ 10:33 by Adrianna Richter MD) History of cholecystectomy History of cardiac cath Hx of bilateral cataract extraction History of total right knee replacement (TKR) History of total left knee replacement (TKR) History of dilation and curettage Hx of colonoscopy Hx of esophagogastroduodenoscopy History of lymph node dissection of left axilla S/P lumpectomy, left breast Family History (Updated 05/25/24 @ 10:34 by Adrianna Richter MD) Father Prostate cancer Hypertension Mother Skin cancer Dementia Diabetes Daughter Lupus Maternal Grandmother Diabetes Hypertension Maternal Grandfather No problems noted. Paternal Grandmother No problems noted. Paternal Grandfather Cancer Brother Prostate cancer Social History Household Members: Spouse and Family Household Members Other:: Graddaughter Housing: House Do you presently have visiting nurse or other home services: Yes Alcohol intake: never Patient Tobacco Use Status: Never used Tobacco e-Cigarette/Vaping Use: Never Used Second Hand Smoke Exposure: No Substance Use Type: Marijuana Advance Directives Date on File: 08/05/22 service: No Current occupational status: disabled Cognitive needs: Yes Hearing needs: No Vision needs: Yes Questionnaire Medicare Wellness Checkup [age] What gender do you identify with?: female During the past 4 weeks, how much have you been bothered by emotional problems such as feeling anxious, depressed, irritable, sad or downhearted, and blue?: quite a bit During the past 4 weeks, has your physical & emotional health limited your social activities with family, friends, neighbors, or groups?: quite a bit During the past 4 weeks, how much bodily pain have you generally had?: moderate pain During the past 4 weeks, was someone available to help you if you needed & wanted help?: yes, as much as I wanted During the past 4 weeks, what was the hardest physical activity you could do for at least 2 minutes?: light Can you get to places out of walking distance without help? (For eg., can you travel alone on buses, taxis or drive your car?): No Can you go shopping for groceries or clothes without someone's help?: No Can you prepare your own meals?: No Can you do your housework without help?: No Because of any health problems, do you need the help of another person with your personal care needs such as eating, bathing, dressing or getting around the house?: Yes Can you handle your own money without help?: No During the past 4 weeks, how would you rate your health in general?: fair During the past 4 weeks how have things been going for you?: good & bad parts about equal Are you having difficulties driving your car?: no Do you always fasten your seat belt when you are in a car?: yes, usually During past 4 weeks, have you been bothered by the following: never: Sexual problems? and Teeth or denture problems?, seldom: Falling or dizzy when standing up and Problems using the telephone? and always: Trouble eating well? and Tiredness or fatigue? Have you fallen 2 or more times in the past year?: No Are you afraid of falling?: Yes Are you a smoker?: no During the past 4 weeks, how many drinks of wine, beer, or other alcoholic beverages did you have?: no alcohol at all Do you exercise for about 20 minutes 3 or more times a week?: no, I usually do not exercise this much Have you been given information to help with the following?: yes: Hazards in your house that might hurt you? and no: Keeping track of your medications? How often do you have trouble taking medicines the way you have been told to take them?: I always take medicine as prescribed How confident are you that you can control & manage most of your health problems?: not very confident What is your race?: or origin or descent Mini Mental State Exam (MMSE) Orientation What is the (year) (season) (date) (day) (month)?: year, season, date, day and month Where are we (state) (county) (town or city) (hospital) (floor)?: state, county, town or city, hospital/clinic and floor Registration Name of 3 unrelated objects clearly and slowly, then ask patient to repeat all 3 of them. (1st repeat determines score. Make sure they can repeat all three): object 1, object 2 and object 3 Attention & Calculation (CHOOSE ONE) Spell WORLD backwards (DLROW): 5 letters Recall Ask patient to repeat the 3 items from question #3.: object 1, object 2 and object 3 Language Show patient a wristwatch & ask what it is. Repeat for pencil.: watch and pencil Ask the patient to repeat the phrase 'No ifs, ands, or buts' after you.: correct Ask the patient to 'take a piece of paper with their right hand' 'fold paper in half' 'place paper on floor': take paper in right hand, fold paper in half and place paper on floor Print the sentence 'CLOSE YOUR EYES' on a piece. If patient actually closes eyes then score.: followed written direction Give patient a blank piece of paper & ask to write a sentence. Score if it contains a noun & verb.: sentence contains subject and verb Ask patient to copy figure of intersecting pentagons exactly. Score if all 10 angles & 2 intersects are included.: all 10 angles present & 2 are intersected Score Score: 30 Activity of Daily Living Bathing - sponge bath, tub bath or shower: receives help in bathing only one body part (such as back or leg) Dressing - getting clothes from closets & drawers, including inner/outer garments & fasteners.: gets clothes & gets dressed without help, except for help tying shoes Toileting - going to the 'toilet room' for urine/bowel elimination & cleaning self/arranging clothes: receives help going to toilet room, cleaning self or arranging clothes Transfer: moves in & out of bed or chair with help Continence: controls urination/bowel movements completely by self Feeding: feeds self without help Total Score: 0 Information obtained from: patient Using telephone: independent Traveling: needs assistance Shopping: dependent Preparing meals: dependent Housework: dependent Taking medicine: independent Managing money: needs assistance PHQ-9 Over the last 2 weeks, how often have you been bothered by any of the following problems? 1. Little interest or pleasure in doing things: nearly every day 2. Feeling down, depressed, or hopeless: nearly every day 3. Trouble falling or staying asleep, or sleeping too much: nearly every day 4. Feeling tired or having little energy: nearly every day 5. Poor appetite or overeating: nearly every day 6. Feeling bad about yourself - or that you are a failure or have let yourself or your family down: nearly every day 7. Trouble concentrating on things, such as reading the newspaper or watching television: nearly every day 8. Moving or speaking so slowly that other people could have noticed. Or the opposite - being so fidgety or restless that you have been moving around a lot more than usual: more than half the days 9. Thoughts that you would be better off or of hurting yourself in some way: not at all Total score: 23 Depression Screening Interpretation: Positive (no suicidal thoughts) Depression Screening Follow-up: Existing condition, In treatment, Community Mental Health Worker F/U and Follow-up Visit Requested Depression Screening Done: Yes [id number] - PHQ-9 Billing: Yes Source: Developed by Drs. Bin Islas, Stephanie Lowery, Markie Escobedo and colleagues, with an educational lo from [employer]. RYANNE-7 AMB Questionnaire RYANNE-7 Date RYANNE - 7 assessed: 05/25/24 Feeling nervous, anxious, or on edge: 1 = Several days Not being able to stop or control worryin = Not at all Worrying too much about different things: 1 = Several days Trouble relaxin = Not at all Being so restless that it is hard to sit still: 0 = Not at all Becoming easily annoyed or irritable: 0 = Not at all Feeling afraid as if something awful might happen: 0 = Not at all Total RYANNE-7 score (0-4 normal; 5-9 mild; 10-14 moderate; 15-21 severe): 2 Source: Developed by Johnny Whiteet B.W. Sebastián, Markie Escobedo and colleagues, with an educational lo from [employer]. RYANNE-7 Assessment Billing RYANNE-7 Assessment Tool: RYANNE-7 Assessment [id number] Fall Risk Assessment Fall Risk Assessment Fall risk assessment: No Falls in past year Thrive Questionnaire Date Thrive assessed: 05/25/24 I am a: Patient What is your living situation today?: I have a steady place to live Within the past 12 months, did the food you bought not last and you didn't have the money to get more?: Never true Within the past 12 months, did you worry whether your food would run out before you got money to buy more?: Never true Do you have trouble paying for medicines?: No Do you have trouble getting transportation to medical appointments?: No Do you have trouble paying your heating and electricity bill?: No Do you have trouble taking care of your child, family member or friend?: No Do you have trouble with day-to-day activities such as bathing, preparing meals, shopping, managing finances, etc.?: No Are you currently unemployed and looking for a job?: No Are you interested in more education?: No Please select the resources that you would like help with: None Currently or been in a relationship where the following occur: No concerns reported THRIVE Score: 0 AUDIT C Alcohol Use Questionnaire (AUDIT-C) 1. How often do you have a drink containing alcohol?: Never Total Score: 0 Score Reviewed/Action Taken: No Review of Systems Const All systems reviewed & are unremarkable except as noted in HPI and below Card Denies chest pain at rest, Denies chest pain with activity, Denies edema, Denies irregular heart rhythm, Denies claudication, Denies dyspnea, Denies dyspnea on exertion, Denies orthopnea, Denies paroxysmal nocturnal dyspnea and Denies slow heart rate Resp Denies cough, Denies dyspnea and Denies dyspnea on exertion Neuro Denies confusion Psych Denies confusion Physical Exam Vital Signs: Last Vital Signs BP 126/80 05/25/24 10:09 BMI result Body Mass Index 42.2 Const General: No confusion Orientation/consciousness: patient oriented x3 and No confusion Limitations: ambulation with cane Neck Neck: Yes normal visual inspection and Yes supple Resp Effort & Inspection: normal respiratory effort Auscultation: clear to auscultation bilaterally Cardio Jugular venous distension: no JVD Rate: regular rate Rhythm: regular rhythm Heart sounds: S1 normal heart sound present and S2 normal heart sound present Neuro General: patient oriented x3, no focal motor deficits and No confusion Romberg Test: Negative Assessment & Plan Assessment & Plan (1) Encounter for Medicare annual wellness exam: Code(s): Z00.00 - Encounter for general adult medical examination without abnormal findings Plan: Repeat in a year. (2) Neck pain: Code(s): M54.2 - Cervicalgia Plan: X-ray ordered. (3) Left shoulder pain: Code(s): M25.512 - Pain in left shoulder Qualifiers: Chronicity: chronic Qualified Code(s): M25.512 - Pain in left shoulder; G89.29 - Other chronic pain Plan: X-ray ordered. Referred to Ortho. (4) Morbid obesity: Code(s): E66.01 - Morbid (severe) obesity due to excess calories Plan: Start diet and exercise. BMI goal is less than 30. (5) Severe major 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 psychotic features: Code(s): F32.2 - Major depressive disorder, single episode, severe without psychotic features Plan: Continue escitalopram. Follow-up with psychiatry. Orders: Orders Complete Blood Count Auto Diff Today D64.9 - Anemia, unspecified Vitamin B12 and Folate Today E53.8 - Deficiency of other specified B group vitamins XR shoulder LT min 2V Today M25.512 - Pain in left shoulder XR DEXA axial skeleton Today N95.9 - Unspecified menopausal and perimenopausal disorder IRON PROFILE Today D64.9 - Anemia, unspecified Vitamin D 25-OH Total Today E55.9 - Vitamin D deficiency, unspecified Comprehensive [place]. Panel Fast Today E78.00 - Pure hypercholesterolemia, unspecified Thyroid Stimulating Hormone Today E66.01 - Morbid (severe) obesity due to excess calories XR cervical spine 2V Today M54.2 - Cervicalgia Referrals Orthopedics Referral M25.512 - Pain in left shoulder Quality Reporting (2019) Fall Risk Screening ([facility] 139) Fall risk assessment: No Falls in past year Depression/Bipolar (159/160/161/177) PHQ-9: Total score: 23 Coding Level of Care Code Medicare First (G0438) Est Pt Level 3 (49758) Diagnoses Encounter for Medicare annual wellness exam Z00.00 Neck pain M54.2 Chronic left shoulder pain M25.512; G89.29 Chronicity: chronic Morbid obesity E66.01 Severe major 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 psychotic features F32.2 CPT Codes Advance Care Planning - Time spent: 1-15 minutes, on File ([id number]) Additional Codes RYANNE-7 Assessment Billing - RYANNE-7 Assessment Tool: RYANNE-7 Assessment [id number] ([id number]) Time Spent (min) 40 Advance Care Planning Advance Care Planning discussion: Exists, not on file Date of discussion: 05/25/24 Who was present: patient and me Forms completed: Health Care Proxy Time spent: 1-15 minutes, on File Actual minutes spent: 2
[2024-05-25 10:09] VITALS: BP 126/80; BMI 42.2
== END 2024-05-25 10:48 | disposition home or self-care (01) ==
PROVIDERS: PCP Internal Medicine; Visit Provider Internal Medicine
DX: Z00.00 Encounter for general adult medical examination without abnormal findings (principal); E66.01 Morbid (severe) obesity due to excess calories; Z68.41 Body mass index [BMI] 40.0-44.9, adult; F32.2 Major depressive disorder, single episode, severe without psychotic features; M54.2 Cervicalgia; M25.512 Pain in left shoulder; G89.29 Other chronic pain
CPT/HCPCS: 1123F; 99213; G0438

== ENCOUNTER 2024-05-25 11:08 | Outpatient (REF) | payer OTHER, SELFPAY ==
[2024-05-25 11:25] LABS: MANUAL DIFF FLAG NO
[2024-05-25 11:44] LABS: Basophils Absolute Auto 0.1 X10*3/uL (0.0-0.2); Basophils Percent Auto 0.7 % (0-2); Eosinophils Absolute Auto 0.1 X10*3/uL (0.0-0.4); Eosinophils Percent Auto 1.5 % (0-4); Hematocrit 39.5 % (37.0-47.0); Hemoglobin 12.6 g/dl (12.0-16.0); Imm Gran Abs Auto 0.02 X10*3/uL (0.00-0.03); Imm Gran Pct Auto 0.3 % (0.0-0.4); Lymphocytes Absolute Auto 2.1 X10*3/uL (1.2-4.9); Lymphocytes Percent Auto 31.4 % (20-40); Mean Corpuscular HGB Conc 31.9 g/dl (31.0-35.0); Mean Corpuscular Hemoglobin 25.3 pg (27.0-33.0); Mean Corpuscular Volume 79.3 fL (80.0-98.0); Mean Platelet Volume 9.4 fL (9.4-12.3); Monocytes Absolute Auto 0.4 X10*3/uL (0.1-1.2); Monocytes Percent Auto 6.5 % (2-11); Neutrophils Absolute Auto 4.1 x10*3/uL (2.0-8.3); Neutrophils Percent Auto 59.6 % (45-73); Platelet Count 219 X10*3/uL (160-400); Red Blood Count 4.98 X10*6/uL (4.20-5.50); Red Cell Distribution Width 14.4 % (11.0-16.0); White Blood Count 6.8 X10*3/uL (4.8-10.8)
[2024-05-25 12:23] LABS: Alanine Aminotransferase 17 U/L (0-31); Albumin Level 4.4 g/dL (3.5-5.0); Alkaline Phosphatase 100 U/L (39-117); Anion Gap 14 (12-20); Aspartate Amino Transferase 19 U/L (5-31); Blood Urea Nitrogen 22 mg/dL (9-16); Calcium 10.3 mg/dL (8.4-10.2); Carbon Dioxide 32 mmol/L (22-29); Chloride 103 mmol/L (96-108); Cholesterol 202 mg/dL (<200); Estimated Glomerular Filt Rate > 60; Glucose Fasting 107 mg/dL (60-99); HDL Cholesterol 74 mg/dL (>40); Iron 58 mcg/dL (30-160); LDL Cholesterol Calculated 105 mg/dL (<100); Percent Iron Saturation 16 % (15-50); Sodium 145 mmol/L (135-145); Total Iron Binding Capacity 353 mcg/dL (228-428); Total Protein 7.7 g/dL (6.5-8.0); Triglycerides 118 mg/dL (<150); Unsaturated Iron Binding 295 ug/dL
[2024-05-25 12:27] LABS: Thyroid Stimulating Hormone 6.03 uIU/mL (0.32-4.0)
[2024-05-25 12:43] LABS: Folate 10.2 ng/mL (> or = 4.0); Vitamin B12 673 pg/mL (200-900)
== END 2024-05-25 11:09 | disposition home or self-care (01) ==
LOC: HO.LAB 11:08
PROVIDERS: PCP Internal Medicine; Visit Provider Internal Medicine
DX: E55.9 Vitamin D deficiency, unspecified (principal); D64.9 Anemia, unspecified; E53.8 Deficiency of other specified B group vitamins; E78.00 Pure hypercholesterolemia, unspecified; E66.01 Morbid (severe) obesity due to excess calories; E78.5 Hyperlipidemia, unspecified
CPT/HCPCS: 36415; 80053; 80061; 82306; 82607; 82746; 83540; 84443; 85025

== ENCOUNTER 2024-06-04 13:29 | Emergency (ER) | payer OTHER, SELFPAY ==
--- NOTE | ~2024-06-04 | XR_ITS ---
EXAMINATION: XR CHEST CLINICAL INFORMATION: Chest pain COMPARISON: None available. TECHNIQUE: Frontal view of the chest was obtained. FINDINGS: vascularity. LUNGS: Persistent or recurrent horizontal platelike atelectasis is seen in lateral left lower lung. No pneumothorax is seen. BONES: Bony skeleton is intact. XR/XR chest 1V IMPRESSION: 1. Unchanged mild cardiomegaly without radiographic signs of congestive heart failure. 2. Persistent or recurrent left lateral lower lung small horizontal platelike atelectasis. 3. Interval resolution of right lower lobe alveolar infiltrates.
--- NOTE | 2024-06-04 13:32 | ED.CHESTPAIN ---
HPI - Chest Pain General Chief Complaint: Chest Pain Stated Complaint: CHEST PAIN Time Seen by Provider: 06/04/24 13:31 Source: patient, EMS and old records reviewed Mode of arrival: EMS Limitations: no limitations History of Present Illness ED Provider: SHARONDA HPI narrative: 68 yo female with obesity, pancreatitis, HLD, depression, hepatic abscess, LBBB, anemia, DORA, gallstones, mild aortic stenosis, pneumonia, asthma, no CAD noted on December 2022 cardiac cath here with c/o being under significant stress she lives with her daughter and 3 granddaughters they are helpful but her is living with alzheimers now and they are trying to get VNA/FILM OR 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 The patient note today watching TV pain under L breat across chest - no dyspnea, nausea. No recent travel/procedure or URI. Denies abdominal pain. MD complaint: chest pain Onset (ago): hour(s) (1) Timing of current episode: other (improving) Prior episodes: Yes Onset: during rest Pain location: left chest Pain radiation: other (across chest) Severity: moderate Quality: tightness Relieving factors: nitroglycerin Exacerbating factors: nothing Context: other (stress) Treatment prior to arrival: nitroglycerin Related Data Home Medications ?Medication ?Instructions ?Recorded ?Confirmed albuterol sulfate 90 mcg/actuation 2 inh inhalation Q4H PRN shortness 08/08/23 05/25/24 breath activated powder of breath or wheezing inhaler,sensor (Proair Digihaler) Previous Rx's ?Medication ?Instructions ?Recorded miscellaneous medical supply #1 ea 11/08/20 miscellaneous medical supply #1 ea 11/08/20 walker (Ultra-Light Rollator misc) #1 ea 11/08/20 nebulizers (AeroEclipse II #1 ea 09/04/22 Nebulizer) Advair HFA 230 mcg-21 2 puff inhalation Q12H #12 ea 06/30/23 mcg/actuation aerosol inhaler (fluticasone propion-salmeterol) albuterol sulfate 2.5 mg/3 mL 2.5 mg (3 mL) inhalation Q6H PRN 07/08/23 (0.083 %) solution for nebulization bronchospasm 30 days #75 mL CPAP (CPAP Machine/Device) #1 ea 11/03/23 metoprolol succinate 25 mg 25 mg PO DAILY 90 days #90 tabs 11/09/23 tablet,extended release 24 hr showerhead #1 ea 12/10/23 escitalopram oxalate 20 mg tablet 20 mg PO BEDTIME 90 days #90 tabs 12/28/23 furosemide 40 mg tablet 40 mg PO QAM 30 days #30 tabs 01/11/24 cyanocobalamin (vitamin B-12) 1,000 mcg PO DAILY #90 tabs 01/12/24 1,000 mcg tablet (Vitamin B-12) atorvastatin 20 mg tablet 20 mg PO DAILY 90 days #90 tabs 03/25/24 oxycodone-acetaminophen 7.5 mg-325 1 tab PO Q8H PRN pain 30 days #90 04/22/24 mg tablet tabs Allergies Allergy/AdvReac Type Severity Reaction Status Date / Time latex [LATEX] Allergy Intermediate RASH Verified 06/04/24 13:43 oxycodone AdvReac Severe Itching Verified 06/04/24 13:43 Review of Systems Review of Systems: Constitutional : No Weight loss, No Fever, No Chills ENT/Mouth : No sore throat, No Rhinorrhea Eyes: No Eye Pain, No Swelling Cardiovascular : pos Chest Pain, no SOB, no Dyspnea on Exertion, No Orthopnea, No Edema, No Palpitations Respiratory : No Cough, No Sputum Gastrointestinal : no Nausea, No Vomiting, No Diarrhea, No abdominal Pain, No Hematochezia, No Melena Genitourinary : No Dysuria, No Urinary Frequency Musculoskeletal : No joint pain, No Myalgias, No Joint Swelling Skin : No Skin Lesions, No rash Neuro : No Weakness, No Numbness, No Dizziness, No Headache All other systems reviewed and are negative [facility] Past Medical History Attestation statement: The following information was validated with the patient. Source: old records reviewed Medical History CKD (chronic kidney disease) stage 3, GFR 30-59 ml/min Acute hypoxemic respiratory failure Sepsis Acute kidney injury Abdominal pain Morbid obesity Gallstones Common bile duct dilation Elevated TSH Hair loss Murmur Moderate persistent asthma Morbid obesity Mild recurrent major depression B12 deficiency Hair loss Right hip pain Dyslipidemia Foot pain, bilateral Lumbar degenerative disc disease History of vitamin D deficiency History of pernicious anemia Arthritis Back pain History of trigger finger History of left bundle branch block (LBBB) On beta mel at home Breast cancer Mild aortic stenosis Sleep apnea Constipation Dizziness Tinnitus Chronic pain HTN (hypertension) Asthma Depression Surgical History History of cholecystectomy History of cardiac cath Hx of bilateral cataract extraction History of total right knee replacement (TKR) History of total left knee replacement (TKR) History of dilation and curettage Hx of colonoscopy Hx of esophagogastroduodenoscopy History of lymph node dissection of left axilla S/P lumpectomy, left breast Family History Family History (Updated 05/25/24 @ 10:34 by Adrianna Richter MD) Father Prostate cancer Hypertension Mother Skin cancer Dementia Diabetes Daughter Lupus Maternal Grandmother Diabetes Hypertension Maternal Grandfather No problems noted. Paternal Grandmother No problems noted. Paternal Grandfather Cancer Brother Prostate cancer Social History Social History Household Members: Spouse and Family Household Members Other:: Graddaughter Housing: House Do you presently have visiting nurse or other home services: Yes Alcohol intake: never Patient Tobacco Use Status: Never used Tobacco Smoked in Last 30 Days: No e-Cigarette/Vaping Use: Never Used Second Hand Smoke Exposure: No Use of substances other than those prescribed or required for medical reasons: No Substance Use Type: Marijuana Advance Directives: Yes Advance Directives on File: Yes Advance Directives Date on File: 08/05/22 Do you have a plan to hurt others: No Plan service: No Current occupational status: disabled Cognitive needs: Yes Hearing needs: No Vision needs: Yes Physical Exam Vital Signs: Vital Signs: Last Vital Signs Temp 98.2 F 06/04/24 15:27 Pulse 57 06/04/24 15:39 Resp 14 06/04/24 15:39 BP 114/68 06/04/24 15:39 Pulse Ox 94 06/04/24 15:39 O2 Del Method Room Air 06/04/24 15:39 BMI result Body Mass Index 42.2 Appearance: Alert. Oriented X3. No acute distress. anxious tearful Eyes: Pupils equal, round and reactive to light. ENT: Pharynx normal. Neck: Normal inspection. Neck supple. CVS: Normal heart rate and rhythm. Pulses normal. Respiratory: No respiratory distress. Breath sounds normal. Abdomen: Soft and nontender. Skin: Skin warm and dry. Normal skin color. Extremities: No lower extremity edema. Neuro: Oriented X 3. No motor deficit. No sensory deficit. Course Course Course Narrative: signed out to Dr. Pulido pending repeat troponin Medical Decision Making Medical Decision Making MDM Narrative: 68 yo female with obesity, pancreatitis, HLD, depression, hepatic abscess, LBBB, anemia, DORA, gallstones, mild aortic stenosis, pneumonia, asthma, no CAD noted on December 2022 cardiac cath here with c/o atypical chest pain 1 hour ago at this time EKG unchanged just had clean cath 2022 seems unusual to develop ACS or blocked artery in that time but given risk factors trop x 2 ordered. Will obtain EKG, troponin x 2, ddimer, CXR, she declines further pain medications at this time. She is anxious but states she has support at home. Differential Diagnosis Differential Diagnoses: The differential diagnosis associated with the presentation includes has risk factors for ACS but just had clean cath needs trop x 2, atypical chest pain, anxiety, VTE Admission/Observation Consideration of admission/observation: Escalation of care including admission/observation considered Lab Data MDM Lab Attestation statement: I reviewed the patient's lab results. ddimer negative 06/04/24 14:36 06/04/24 14:36 Labs: Lab Results 06/04/24 Range/Units 14:36 WBC 5.9 (4.8-10.8) X10*3/uL RBC 4.42 (4.20-5.50) X10*6/uL Hgb 11.3 L (12.0-16.0) g/dl Hct 35.0 L (37.0-47.0) % MCV 79.2 L (80.0-98.0) fL MCH 25.6 L (27.0-33.0) pg MCHC 32.3 (31.0-35.0) g/dl RDW 14.6 (11.0-16.0) % Plt Count 209 (160-400) X10*3/uL MPV 9.3 L (9.4-12.3) fL Immature Gran % (Auto) 0.3 (0.0-0.4) % Neut % (Auto) 59.9 (45-73) % Lymph % (Auto) 30.3 (20-40) % Bell % (Auto) 6.8 (2-11) % Eos % (Auto) 1.9 (0-4) % Baso % (Auto) 0.8 (0-2) % Lymph # (Auto) 1.8 (1.2-4.9) X10*3/uL Bell # (Auto) 0.4 (0.1-1.2) X10*3/uL Eos # (Auto) 0.1 (0.0-0.4) X10*3/uL Baso # (Auto) 0.1 (0.0-0.2) X10*3/uL Abs Immat Gran (auto) 0.02 (0.00-0.03) X10*3/uL Absolute Neuts (auto) 3.5 (2.0-8.3) x10*3/uL Absolute Nucleated RBC 0.000 (0.0-0.012) X10*3/uL Nucleated RBC % (auto) 0.0 (0.0-0.2) /100WBC D-Dimer High Sensitivty < 150 NG/ML Sodium 143 (135-145) mmol/L Potassium 3.7 (3.3-5.1) mmol/L Chloride 110 H (96-108) mmol/L Carbon Dioxide 26 (22-29) mmol/L Anion Gap 11 L (12-20) BUN 13 (9-16) mg/dL Creatinine 0.88 (0.5-1.4) mg/dL Estim Creat Clear Calc 59.9 Estimated GFR > 60 Random Glucose 128 H (60-115) mg/dL Calcium 9.5 D (8.4-10.2) mg/dL Magnesium 1.7 (1.6-2.6) mg/dL Total Bilirubin 1.0 (0.0-1.0) mg/dL Direct Bilirubin 0.3 (0.0-0.5) mg/dL AST 20 (5-31) U/L ALT 16 (0-31) U/L Alkaline Phosphatase 82 (39-117) U/L Troponin I High Sens 8.3 (<3.5-17.0) ng/L B-Natriuretic Peptide 83 (<100) pg/mL Total Protein 6.4 L (6.5-8.0) g/dL Albumin 3.7 (3.5-5.0) g/dL Independent Interpretation I performed an independent interpretation of an: EKG and Plain X-Ray (normal ) Interpretation: Rate: 59 Rhythm: sinus bradycardia [place]: left Normal P waves. Normal AMRITA. LBBB ST T wave : no BRIANA, inverted t wave I and aVL, nonspecific ST T wave changes no BRIANA qTC:459 prior studies: no acute ischemia The study has been interpreted contemporaneously by me. . Radiology Impression Discussion of test interpretation with radiology: I have reviewed the radiologist's reading. Independent Historian Clinical information obtained from an independent historian. History obtained from or confirmed by: EMS External Record Review External record reviewed: Inpatient record and Outpatient record Discharge Plan Discharge Clinical Impression: Atypical chest pain Patient Disposition: Still a Patient Instructions: Chest Pain (ED) Additional Instructions: EKG reassuring, blood clot test negative Prescriptions: No Action (DME) miscellaneous medical supply Misc See Rx Instructions .ROUTE .MEDSUPPLY Qty: 1 0RF Rx Instructions: GRAB BAR 18 (DME) miscellaneous medical supply Misc See Rx Instructions .ROUTE .MEDSUPPLY Qty: 1 0RF Rx Instructions: toilet safety frame (DME) Ultra-Light Rollator Misc See Rx Instructions .ROUTE .MEDSUPPLY Qty: 1 0RF Rx Instructions: As directed (DME) nebulizers [AeroEclipse II Nebulizer[place] [facility] [place]ructions .Route Qty: 1 0RF Rx Instructions: As directed Advair HFA 230-21 mcg/actuation HFA aerosol inhaler 2 puff inhalation Q12H Qty: 12 6RF albuterol sulfate 2.5 mg /3 mL (0.083 %) solution for nebulization 2.5 mg inhalation Q6H PRN (Reason: bronchospasm) 30 Days Qty: 75 1RF (DME) CPAP Machine/Device Device See Rx Instructions .Route Qty: 1 0RF Rx Instructions: autoPAP 6-16 cmH2O metoprolol succinate 25 mg tablet extended release 24 hr 25 mg PO DAILY 90 Days Qty: 90 3RF (DME) showerhead See Rx Instructions .Route .MEDSUPPLY Qty: 1 0RF Rx Instructions: As directed escitalopram oxalate 20 mg tablet 20 mg PO BEDTIME 90 Days Qty: 90 1RF furosemide 40 mg tablet 40 mg PO QAM 30 Days Qty: 30 6RF cyanocobalamin (vitamin B-12) [Vitamin B-12] 1,000 mcg tablet 1,000 mcg PO DAILY Qty: 90 1RF atorvastatin 20 mg tablet 20 mg PO DAILY 90 Days Qty: 90 3RF oxycodone-acetaminophen 7.5-325 mg tablet 1 tab PO Q8H PRN (Reason: pain) 30 Days Qty: 90 0RF Rx Instructions: Partial Fill upon patient request. Proair Digihaler 90 mcg/actuation aero powdr breath act w/sensor 2 inh inhalation Q4H PRN (Reason: shortness of breath or wheezing) Print Language: Mongolian
[2024-06-04 13:36] VITALS: BP 130/56; BP 130/62; PULSE 63; PULSE 70; RESP 20; TEMP 36.8; O2SAT 94; O2SAT 96; BMI 42.2
--- NOTE | 2024-06-04 13:45 | ECG_ITS ---
Test Reason : CHEST PAIN Blood Pressure : / mmHG Vent. Rate : 059 BPM Atrial Rate : 059 BPM P-R Int : 162 ms QRS Dur : 142 ms QT Int : 464 ms P-R-T Axes : 014 -04 178 degrees QTc Int : 459 ms Sinus bradycardia Left bundle branch block Abnormal ECG When compared with ECG of 08-AUG-2023 19:41, Vent. rate has decreased BY 36 BPM Referred By: Jazz Mendez Electronically Signed By:POOJA HENDRICKS
[2024-06-04 14:37] VITALS: BP 130/56; PULSE 58; RESP 21; TEMP 36.9; O2SAT 95
[2024-06-04 14:41] LABS: MANUAL DIFF FLAG NO
[2024-06-04 14:44] LABS: Basophils Absolute Auto 0.1 X10*3/uL (0.0-0.2); Basophils Percent Auto 0.8 % (0-2); Eosinophils Absolute Auto 0.1 X10*3/uL (0.0-0.4); Eosinophils Percent Auto 1.9 % (0-4); Hemoglobin 11.3 g/dl (12.0-16.0); Imm Gran Abs Auto 0.02 X10*3/uL (0.00-0.03); Imm Gran Pct Auto 0.3 % (0.0-0.4); Lymphocytes Absolute Auto 1.8 X10*3/uL (1.2-4.9); Lymphocytes Percent Auto 30.3 % (20-40); Mean Corpuscular HGB Conc 32.3 g/dl (31.0-35.0); Mean Corpuscular Hemoglobin 25.6 pg (27.0-33.0); Mean Corpuscular Volume 79.2 fL (80.0-98.0); Mean Platelet Volume 9.3 fL (9.4-12.3); Monocytes Absolute Auto 0.4 X10*3/uL (0.1-1.2); Monocytes Percent Auto 6.8 % (2-11); Neutrophils Absolute Auto 3.5 x10*3/uL (2.0-8.3); Neutrophils Percent Auto 59.9 % (45-73); Platelet Count 209 X10*3/uL (160-400); Red Blood Count 4.42 X10*6/uL (4.20-5.50); Red Cell Distribution Width 14.6 % (11.0-16.0); White Blood Count 5.9 X10*3/uL (4.8-10.8)
[2024-06-04 14:50] LABS: D Dimer High Sensitivity < 150 NG/ML
[2024-06-04 15:05] LABS: Alanine Aminotransferase 16 U/L (0-31); Albumin Level 3.7 g/dL (3.5-5.0); Alkaline Phosphatase 82 U/L (39-117); Anion Gap 11 (12-20); Aspartate Amino Transferase 20 U/L (5-31); Bilirubin Direct 0.3 mg/dL (0.0-0.5); Blood Urea Nitrogen 13 mg/dL (9-16); Calcium 9.5 mg/dL (8.4-10.2); Carbon Dioxide 26 mmol/L (22-29); Chloride 110 mmol/L (96-108); Creatinine Clr Calc Pharmacy 59.9; Estimated Glomerular Filt Rate > 60; Glucose Random 128 mg/dL (60-115); Magnesium 1.7 mg/dL (1.6-2.6); Potassium 3.7 mmol/L (3.3-5.1); Sodium 143 mmol/L (135-145); Total Protein 6.4 g/dL (6.5-8.0)
[2024-06-04 15:11] LABS: B Type Natriuretic Peptide 83 pg/mL (<100)
[2024-06-04 15:13] LABS: Troponin-I High Sensitivity 8.3 ng/L (<3.5-17.0)
--- NOTE | 2024-06-04 15:18 | PC.NURSE ---
patient presents with chest pain that started today while she was at home, patient denies significant medical history however also states she has atrial fibrillation and states she was at home talking with someone and started feeling chest pain while she was at rest. patient denies any new swelling to extremities or shortness of breath. 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
[2024-06-04 15:27] VITALS: BP 120/63; PULSE 58; RESP 18; TEMP 36.8; O2SAT 97
--- NOTE | 2024-06-04 15:28 | MHC.EDTECH ---
this pct assumed care of pt at 1500 ,vitals taken ,pt resting quietly in bed ,no apparent distress noted plan of care continue .
[2024-06-04 15:39] VITALS: BP 114/68; PULSE 57; RESP 14; O2SAT 94
--- NOTE | 2024-06-04 15:44 | PC.NURSE ---
patient continues to report chest pain, now reporting it a 4/10 with mild pressure like feeling. Patient otherwise offers no complaints. VSS at this time
[2024-06-04 17:38] VITALS: BP 129/69; PULSE 74; RESP 15; TEMP 36.8; O2SAT 95
[2024-06-04 17:41] LABS: Troponin-I High Sensitivity 10.1 ng/L (<3.5-17.0)
== END 2024-06-04 18:22 | disposition still patient (30) ==
PROVIDERS: Emergency Medicine; Emergency Provider Emergency Medicine; PCP Internal Medicine
DX: R07.89 Other chest pain (principal); R00.1 Bradycardia, unspecified; I10 Essential (primary) hypertension; E78.5 Hyperlipidemia, unspecified; I44.7 Left bundle-branch block, unspecified; D64.9 Anemia, unspecified; J45.909 Unspecified asthma, uncomplicated; G47.33 Obstructive sleep apnea (adult) (pediatric); Z99.89 Dependence on other enabling machines and devices; Z79.02 Long term (current) use of antithrombotics/antiplatelets; Z79.899 Other long term (current) drug therapy
CPT/HCPCS: 36415; 71045; 80048; 80076; 83735; 83880; 84484; 85025; 85379; 93005; 99283; 99285

== ENCOUNTER 2024-06-16 10:35 | Outpatient (REF) | payer OTHER, SELFPAY ==
--- NOTE | ~2024-06-16 | MM_ITS ---
EXAMINATION: BONE DENSITOMETRY CLINICAL INDICATION: Menopause. COMPARISON: Previous BD dated 05/29/2022 and baseline BD dated 02/02/2015. TECHNIQUE: Using a [employer] DXA System (software version: 13.1) manufactured by [employer], dual-energy x-ray absorptiometry was performed of the lumbar spine and left hip. The images are of good technical quality. Summary results are attached. FINDINGS: LEFT FEMUR, NECK: Current: BMD 0.897 g/cm2, Z-score 0.1, T-score -1.0, normal. Prior: BMD 0.868 g/cm2. Baseline: BMD 0.975 g/cm2. LEFT FEMUR, TOTAL: Current: BMD 1.116 g/cm2, Z-score 1.6, T-score 0.9, normal, 0.1% decrease from previous, 1.4% increase from baseline (<5% change is not significant). Prior: BMD 1.117 g/cm2. Baseline: BMD 1.101 g/cm2. AP SPINE L3-L4 (excluding L1 and L2): The data of L1-L4 has been changed to exclude the L1 and L2 vertebral bodies, because degenerative sclerosis at these levels may cause overestimation of lumbar spine density. Current: BMD 0.991 g/cm2, Z-score -1.1, T-score -1.7, osteopenia, 1.3% decrease from previous, 5.6% decrease from baseline (<5% change is not significant). Prior: BMD 1.004 g/cm2. Baseline: BMD 1.050 g/cm2. IDENTIFIED RISK FACTORS: Menopause, renal. HISTORY OF FRACTURE: None listed. MEDICATIONS: Vitamin D. MM/XR DEXA axial skeleton IMPRESSION: 1. DIAGNOSIS: Osteopenia based on the lowest T-score value of -1.7 in the lumbar spine applying World Health Organization criteria. 2. 10-YEAR FRACTURE RISK PREDICTION, FRAX: Major osteoporotic fracture (clinical spine, forearm, hip or shoulder) 4.3%. Hip fracture 0.4%. 3. Treatment Recommendations: NOF guidelines recommend consideration for treatment in postmenopausal women and men age 50 and older presenting with the following: -A hip or vertebral (clinical or morphometric) fracture. -T-score less than or equal to -2.5 at the femoral neck or spine after appropriate evaluation to exclude secondary causes. -Low bone mass at the hip or spine and a 10-year fracture probability by FRAX of greater than or equal to 3% for hip fracture or greater than or equal to 20% for major osteoporotic fracture based on the [place] adapted WHO algorithm. 4. Other Recommendations: All treatment decisions require clinical judgment and consideration of individual patient factors, including patient preferences, comorbidities, previous drug use, risk factors not captured in the FRAX model (e.g. frailty, falls, vitamin D deficiency, increased bone turnover, interval significant decline in bone density) and possible under or overestimation of fracture risk by FRAX. Additional medical evaluation for secondary cause of low bone mineral density may be appropriate. FUTURE SCAN RECOMMENDATION: People with diagnosed cases of osteoporosis or at high risk for fracture should have regular bone mineral density tests. For patients eligible for Medicare, routine testing is allowed once every 2 years. The testing frequency can be increased to one year for patients who have rapidly progressing disease, those who are receiving or discontinuing medical therapy to restore bone mass, or have additional risk factors. Electronically signed by: Jacinto Noel MD 06/22/2024 11:05 AM EDT
== END 2024-06-16 10:36 | disposition home or self-care (01) ==
LOC: HO.MAMMO 10:35
PROVIDERS: PCP Internal Medicine; Visit Provider Internal Medicine
DX: Z13.820 Encounter for screening for osteoporosis (principal); Z78.0 Asymptomatic menopausal state
CPT/HCPCS: 77080

== ENCOUNTER 2024-08-03 12:07 | Outpatient (REF) | payer OTHER, SELFPAY | END 2024-08-03 12:08 | disposition home or self-care (01) | LOC: HO.HOSX 12:07 | PROVIDERS: Visit Provider Orthopaedic Surgery | DX: Z13.89 Encounter for screening for other disorder (principal) ==

== ENCOUNTER 2024-08-18 11:51 | Outpatient (REF) | payer OTHER, SELFPAY ==
--- NOTE | ~2024-08-18 | XR_ITS ---
EXAMINATION: XR SHOULDER, RIGHT CLINICAL INFORMATION: Right shoulder pain COMPARISON: None available. TECHNIQUE: Two views of the right shoulder. FINDINGS: Mild acromioclavicular osteoarthritis. The glenohumeral joint appears normal. No fracture or malalignment. XR/XR shoulder RT min 2V IMPRESSION: Mild acromioclavicular osteoarthritis. Electronically signed by: Adrián Mcgarry MD 08/18/2024 03:36 PM EDT
--- NOTE | ~2024-08-18 | XR_ITS ---
EXAMINATION: XR CERVICAL SPINE CLINICAL INFORMATION: Cervicalgia COMPARISON: None available. TECHNIQUE: 3 views of the cervical spine were obtained. FINDINGS: Normal alignment and cervical lordosis. No fracture or prevertebral soft tissue swelling. Moderate degenerative disc disease at C5-C6 and mild degenerative disc disease at C6-C7. XR/XR cervical spine 2V IMPRESSION: Mild to moderate degenerative disc disease at C5-C6 and C6-C7. Electronically signed by: Adrián Mcgarry MD 08/18/2024 03:37 PM EDT
== END 2024-08-18 11:52 | disposition home or self-care (01) ==
LOC: HO.HOSX 11:51
PROVIDERS: Visit Provider Orthopaedic Surgery
DX: M54.2 Cervicalgia (principal); M25.511 Pain in right shoulder; M25.311 Other instability, right shoulder
CPT/HCPCS: 72040; 73030; 99202

== ENCOUNTER 2024-08-18 12:59 | Outpatient (AMB) | payer OTHER, SELFPAY ==
--- NOTE | 2024-08-18 13:09 | MHC.OFFVIS ---
Intake Visit Reasons: Right shoulder pain and weakness Intake Note: Marita is a 68 year old right hand dominant female who presents with complaints of progressively worsening right shoulder pain and weakness. She describes her pain as sharp and severe in nature. Her pain has gotten worse over the last several years in spite of continued non operative treatments. She has failed the last 6 weeks of conservative treatment which has consisted of physical therapy exercises, topical creams, Tylenol and anti-inflammatory medicines. She reports weakness when lifting her right hand above shoulder height. The patient has right shoulder pain and weakness are now interfering with her activities of daily living and her ability to sleep well through the night. The patient reports difficulty lifting her right hand above shoulder height. She has had injections in the past which gave her no relief. Allergies latex [LATEX] Allergy (Intermediate, Verified 08/18/24 13:20) RASH oxycodone Adverse Reaction (Severe, Verified 08/18/24 13:20) Itching Medication List - Last Reconciled 08/18/24 by Maciej Tran MD Advair HFA 230-21 mcg/actuation (fluticasone propion-salmeterol) 2 puffs inhalation Q12H NS albuterol sulfate 90 mcg/actuation (Proair Digihaler) 2 inhalations inhalation Q4H PRN albuterol sulfate 2.5 mg (3 mL) inhalation Q6H PRN 30 days atorvastatin 20 mg PO DAILY 90 days CPAP (CPAP Machine/Device) autoPAP 6-16 cmH2O cyanocobalamin (vitamin B-12) (Vitamin B-12) 1,000 mcg PO DAILY escitalopram oxalate 20 mg PO BEDTIME 90 days furosemide 40 mg PO QAM 30 days lorazepam 1 mg (2 x 0.5 mg) PO DAILY PRN 1 day metoprolol succinate ER 25 mg PO DAILY 90 days miscellaneous medical supply GRAB BAR 18 [employer]ellaneous medical supply toilet safety frame nebulizers (AeroEclipse II Nebulizer) As directed oxycodone-acetaminophen 7.5-325 mg 1 tab PO Q8H PRN 30 days [showerhead As directed] walker (Ultra-Light Rollator misc) As directed [facility] Medical History CKD (chronic kidney disease) stage 3, GFR 30-59 ml/min Acute hypoxemic respiratory failure Sepsis Acute kidney injury Abdominal pain Morbid obesity Gallstones Common bile duct dilation Elevated TSH Hair loss Murmur Moderate persistent asthma Morbid obesity Mild recurrent major depression B12 deficiency Hair loss Right hip pain Dyslipidemia Foot pain, bilateral Lumbar degenerative disc disease History of vitamin D deficiency History of pernicious anemia Arthritis Back pain History of trigger finger History of left bundle branch block (LBBB) On beta mel at home Breast cancer Mild aortic stenosis Sleep apnea Constipation Dizziness Tinnitus Chronic pain HTN (hypertension) Asthma Depression Surgical History History of cholecystectomy History of cardiac cath Hx of bilateral cataract extraction History of total right knee replacement (TKR) History of total left knee replacement (TKR) History of dilation and curettage Hx of colonoscopy Hx of esophagogastroduodenoscopy History of lymph node dissection of left axilla S/P lumpectomy, left breast Family History (Updated 05/25/24 @ 10:34 by Adrianna Richter MD) Father Prostate cancer Hypertension Mother Skin cancer Dementia Diabetes Daughter Lupus Maternal Grandmother Diabetes Hypertension Maternal Grandfather No problems noted. Paternal Grandmother No problems noted. Paternal Grandfather Cancer Brother Prostate cancer Social History Household Members: Spouse and Family Household Members Other:: Graddaughter Housing: House Do you presently have visiting nurse or other home services: Yes Alcohol intake: never Patient Tobacco Use Status: Never used Tobacco e-Cigarette/Vaping Use: Never Used Second Hand Smoke Exposure: No Substance Use Type: Marijuana Advance Directives Date on File: 08/05/22 service: No Current occupational status: disabled Cognitive needs: Yes Hearing needs: No Vision needs: Yes Physical Exam Const Other: Well-nourished well-developed very friendly female awake alert and oriented x3 in no acute distress Extrem Other: Bilateral upper extremity examination shows good capillary refill, no skin lesions noted, normal sensation light touch Right shoulder examination shows decreased range of motion when compared to her left shoulder, 4+ out of 5 strength with supraspinatus testing, positive impingement signs, tenderness over her acromioclavicular joint, no instability Results Reviewed Results Reviewed: X-rays of the patient's right shoulder show severe acromioclavicular joint narrowing, a type 2 acromion, no acute bony abnormalities Assessment & Plan Assessment & Plan (1) Rotator cuff insufficiency of right shoulder: Code(s): M25.311 - Other instability, right shoulder Category: Medical Plan Ms. Murray presents with progressively worsening right shoulder pain and weakness due to impingement syndrome and possible full-thickness rotator cuff tearing. I will send the patient for an MRI of her right shoulder for further evaluation. I will see her back once the MRI is completed to discuss the findings and treatment options. Feel free to call me at any time should questions regarding her orthopedic management arise. Thank you very much for asking me to see this very friendly patient. I spent 21 minutes in reviewing the patient's records and imaging studies, seeing the patient and documenting in the medical record. Orders: Orders MR shoulder RT wo con Today M25.311 - Other instability, right shoulder XR shoulder RT min 2V Today M25.511 - Pain in right shoulder XR cervical spine 2V Today M54.2 - Cervicalgia Coding Level of Care Code New Pt Level 3 (94788) Complex EM visit Add On G2211 Diagnoses Rotator cuff insufficiency of right shoulder M25.311
== END 2024-08-18 13:28 | disposition home or self-care (01) ==
LOC: HO.HOS 13:00
PROVIDERS: PCP Internal Medicine; Visit Provider Orthopaedic Surgery
DX: M25.311 Other instability, right shoulder (principal)
CPT/HCPCS: 99203; G2211

== ENCOUNTER 2024-09-07 15:06 | Outpatient (REF) | payer OTHER, SELFPAY ==
[2024-09-07 15:32] LABS: MANUAL DIFF FLAG NO
[2024-09-07 16:04] LABS: Basophils Absolute Auto 0.1 X10*3/uL (0.0-0.2); Basophils Percent Auto 0.8 % (0-2); Eosinophils Absolute Auto 0.1 X10*3/uL (0.0-0.4); Eosinophils Percent Auto 1.7 % (0-4); Hematocrit 40.4 % (37.0-47.0); Hemoglobin 12.7 g/dl (12.0-16.0); Imm Gran Abs Auto 0.01 X10*3/uL (0.00-0.03); Imm Gran Pct Auto 0.1 % (0.0-0.4); Lymphocytes Percent Auto 28.3 % (20-40); Mean Corpuscular HGB Conc 31.4 g/dl (31.0-35.0); Mean Corpuscular Hemoglobin 24.7 pg (27.0-33.0); Mean Corpuscular Volume 78.6 fL (80.0-98.0); Mean Platelet Volume 9.8 fL (9.4-12.3); Monocytes Absolute Auto 0.4 X10*3/uL (0.1-1.2); Monocytes Percent Auto 5.8 % (2-11); Neutrophils Absolute Auto 4.5 x10*3/uL (2.0-8.3); Neutrophils Percent Auto 63.3 % (45-73); Platelet Count 230 X10*3/uL (160-400); Red Blood Count 5.14 X10*6/uL (4.20-5.50); Red Cell Distribution Width 15.8 % (11.0-16.0); White Blood Count 7.1 X10*3/uL (4.8-10.8)
[2024-09-07 16:53] LABS: Creatinine Urine 232.68 mg/dL; Microalbum/Creatinine Ratio Ur 2.1 ug/mg cr (<30); Total Protein Urine Random 8 mg/dL (<12)
[2024-09-07 17:01] LABS: Anion Gap 18 (12-20); Blood Urea Nitrogen 16 mg/dL (9-16); Calcium 10.6 mg/dL (8.4-10.2); Carbon Dioxide 24 mmol/L (22-29); Chloride 104 mmol/L (96-108); Estimated Glomerular Filt Rate > 60; Iron 68 mcg/dL (30-160); Percent Iron Saturation 19 % (15-50); Potassium 4.3 mmol/L (3.3-5.1); Sodium 142 mmol/L (135-145); Total Iron Binding Capacity 356 mcg/dL (228-428); Unsaturated Iron Binding 288 ug/dL
[2024-09-07 17:16] LABS: Ferritin 18 ng/mL (10-250)
== END 2024-09-07 15:07 | disposition home or self-care (01) ==
LOC: HO.LAB 15:06
PROVIDERS: PCP Internal Medicine; Visit Provider Internal Medicine Nephrology
DX: N18.9 Chronic kidney disease, unspecified (principal); N17.0 Acute kidney failure with tubular necrosis; N14.4 Toxic nephropathy, not elsewhere classified; N17.9 Acute kidney failure, unspecified
CPT/HCPCS: 36415; 80051; 82043; 82310; 82565; 82570; 82728; 83540; 84156; 84520; 85025

== ENCOUNTER 2024-09-23 10:37 | Emergency (ER) | payer OTHER, SELFPAY ==
--- NOTE | ~2024-09-23 | US_ITS ---
EXAMINATION: US TRIPLEX UPPER EXTREMITY, LEFT CLINICAL INFORMATION: Hand swelling, rule out thrombus COMPARISON: None available. TECHNIQUE: Color-flow triplex imaging with spectral analysis and compression Doppler was performed on the left upper extremity. FINDINGS: The left internal jugular, subclavian, and axillary veins are patent and free of thrombus. The imaged segment of the left brachiocephalic vein is patent. Spectral doppler waveforms are normal. The brachial, basilic, cephalic, radial, and ulnar veins are patent and compressible. US/US venous duplex UE LT IMPRESSION: No evidence of deep venous thrombosis involving the left upper extremity. Electronically signed by: Geovani Felder DO 09/23/2024 01:28 PM EST
--- NOTE | ~2024-09-23 | XR_ITS ---
EXAMINATION: XR HAND/WRIST, LEFT CLINICAL INFORMATION: left hand pain COMPARISON: None available. TECHNIQUE: Four views of the left hand and wrist. FINDINGS: The bones and soft tissues are normal. No fracture. Alignment is anatomic. Joint spaces are maintained. No erosions or soft tissue calcifications. XR/XR hand wrist LT IMPRESSION: Normal radiographs of the hand and wrist. Electronically signed by: Mariela Ahuja MD 09/23/2024 07:38 PM KELSIE ARSHAD
[2024-09-23 10:56] VITALS: BP 116/52; PULSE 70; RESP 18; TEMP 37.1; O2SAT 94; BMI 42.6
[2024-09-23 11:29] LABS: MANUAL DIFF FLAG NO
[2024-09-23 11:37] LABS: Basophils Absolute Auto 0.1 X10*3/uL (0.0-0.2); Basophils Percent Auto 0.9 % (0-2); Eosinophils Absolute Auto 0.1 X10*3/uL (0.0-0.4); Eosinophils Percent Auto 1.7 % (0-4); Hematocrit 38.8 % (37.0-47.0); Hemoglobin 12.2 g/dl (12.0-16.0); Imm Gran Abs Auto 0.01 X10*3/uL (0.00-0.03); Imm Gran Pct Auto 0.1 % (0.0-0.4); Lymphocytes Absolute Auto 1.6 X10*3/uL (1.2-4.9); Lymphocytes Percent Auto 22.5 % (20-40); Mean Corpuscular HGB Conc 31.4 g/dl (31.0-35.0); Mean Corpuscular Hemoglobin 24.7 pg (27.0-33.0); Mean Corpuscular Volume 78.7 fL (80.0-98.0); Mean Platelet Volume 9.5 fL (9.4-12.3); Monocytes Absolute Auto 0.5 X10*3/uL (0.1-1.2); Monocytes Percent Auto 6.7 % (2-11); Neutrophils Absolute Auto 4.7 x10*3/uL (2.0-8.3); Neutrophils Percent Auto 68.1 % (45-73); Platelet Count 227 X10*3/uL (160-400); Red Blood Count 4.93 X10*6/uL (4.20-5.50); Red Cell Distribution Width 15.9 % (11.0-16.0)
[2024-09-23 11:44] LABS: Prothrombin Time 11.3 SEC (10.9-12.4)
[2024-09-23 11:47] LABS: Alanine Aminotransferase 20 U/L (0-31); Alkaline Phosphatase 85 U/L (39-117); Anion Gap 12 (12-20); Aspartate Amino Transferase 27 U/L (5-31); Bilirubin Total 1.2 mg/dL (0.0-1.0); Blood Urea Nitrogen 14 mg/dL (9-16); Calcium 9.4 mg/dL (8.4-10.2); Carbon Dioxide 27 mmol/L (22-29); Chloride 108 mmol/L (96-108); Creatinine Clr Calc Pharmacy 66.3; Estimated Glomerular Filt Rate > 60; Glucose Random 95 mg/dL (60-115); Potassium 4.2 mmol/L (3.3-5.1); Sodium 143 mmol/L (135-145); Total Protein 7.1 g/dL (6.5-8.0)
[2024-09-23 12:02] LABS: Uric Acid 6.6 mg/dL (2.4-5.7)
[2024-09-23] MEDS: predniSONE 20 MG TABLET 40 MG PO (15:08)
[2024-09-23] MEDS: Ketorolac Tromethamine 30 MG/ML VIAL IM (15:08)
--- NOTE | 2024-09-23 15:13 | ED.GENADULT ---
HPI - General Adult General Chief complaint: General Medical Stated complaint: L hand swelling Time Seen by Provider: 09/23/24 14:36 Source: patient Mode of arrival: ambulatory Limitations: no limitations History of Present Illness ED Provider: Reji Cheung HPI narrative: 68-year-old female with past medical history of resolved breast cancer gallstones, pneumonia, high cholesterol, left bundle-branch block presents to the ED for left hand swelling and pain without any trauma. Patient states started since 06:00. Patient denies any fever, chills, chest pain, you should long travel, recent surgery, or any history of IV drug use. Related Data Home Medications ?Medication ?Instructions ?Recorded ?Confirmed albuterol sulfate 90 mcg/actuation 2 inh inhalation Q4H PRN shortness 08/08/23 08/18/24 breath activated powder of breath or wheezing inhaler,sensor (Proair Digihaler) Previous Rx's ?Medication ?Instructions ?Recorded miscellaneous medical supply #1 ea 11/08/20 miscellaneous medical supply #1 ea 11/08/20 walker (Ultra-Light Rollator misc) #1 ea 11/08/20 nebulizers (AeroEclipse II #1 ea 09/04/22 Nebulizer) Advair HFA 230 mcg-21 2 puff inhalation Q12H #12 ea 06/30/23 mcg/actuation aerosol inhaler (fluticasone propion-salmeterol) albuterol sulfate 2.5 mg/3 mL 2.5 mg (3 mL) inhalation Q6H PRN 07/08/23 (0.083 %) solution for nebulization bronchospasm 30 days #75 mL CPAP (CPAP Machine/Device) #1 ea 11/03/23 metoprolol succinate 25 mg 25 mg PO DAILY 90 days #90 tabs 11/09/23 tablet,extended release 24 hr showerhead #1 ea 12/10/23 escitalopram oxalate 20 mg tablet 20 mg PO BEDTIME 90 days #90 tabs 12/28/23 furosemide 40 mg tablet 40 mg PO QAM 30 days #30 tabs 01/11/24 atorvastatin 20 mg tablet 20 mg PO DAILY 90 days #90 tabs 03/25/24 lorazepam 0.5 mg tablet 1 mg (2 x 0.5 mg) PO DAILY PRN 06/06/24 anxiety 1 day #2 tabs cyanocobalamin (vitamin B-12) 1,000 mcg PO DAILY #90 tabs 07/11/24 1,000 mcg tablet (Vitamin B-12) oxycodone-acetaminophen 7.5 mg-325 1 tab PO Q8H PRN pain 30 days #90 08/10/24 mg tablet tabs nystatin 100,000 unit/gram topical 1 appl topical BID PRN rash 2 08/23/24 cream weeks #30 grams colchicine 0.6 mg capsule 0.6 mg PO BID 2 days #4 caps 09/23/24 indomethacin 50 mg capsule 50 mg PO TID 5 days #15 caps 09/23/24 prednisone 20 mg tablet 40 mg (2 x 20 mg) PO DAILY 5 days 09/23/24 #10 tabs Allergies Allergy/AdvReac Type Severity Reaction Status Date / Time latex [LATEX] Allergy Intermediate RASH Verified 09/23/24 10:58 oxycodone AdvReac Severe Itching Verified 09/23/24 10:58 Review of Systems Review of Systems: Left hand pain swelling Yes all other systems are reviewed and are negative [facility] Past Medical History Medical History CKD (chronic kidney disease) stage 3, GFR 30-59 ml/min Acute hypoxemic respiratory failure Sepsis Acute kidney injury Abdominal pain Morbid obesity Gallstones Common bile duct dilation Elevated TSH Hair loss Murmur Moderate persistent asthma Morbid obesity Mild recurrent major depression B12 deficiency Hair loss Right hip pain Dyslipidemia Foot pain, bilateral Lumbar degenerative disc disease History of vitamin D deficiency History of pernicious anemia Arthritis Back pain History of trigger finger History of left bundle branch block (LBBB) On beta mel at home Breast cancer Mild aortic stenosis Sleep apnea Constipation Dizziness Tinnitus Chronic pain HTN (hypertension) Asthma Depression Surgical History History of cholecystectomy History of cardiac cath Hx of bilateral cataract extraction History of total right knee replacement (TKR) History of total left knee replacement (TKR) History of dilation and curettage Hx of colonoscopy Hx of esophagogastroduodenoscopy History of lymph node dissection of left axilla S/P lumpectomy, left breast Family History Family History (Updated 05/25/24 @ 10:34 by Adrianna Richter MD) Father Prostate cancer Hypertension Mother Skin cancer Dementia Diabetes Daughter Lupus Maternal Grandmother Diabetes Hypertension Maternal Grandfather No problems noted. Paternal Grandmother No problems noted. Paternal Grandfather Cancer Brother Prostate cancer Social History Social History Household Members: Spouse and Family Household Members Other:: Graddaughter Housing: House Do you presently have visiting nurse or other home services: Yes Alcohol intake: never Patient Tobacco Use Status: Never used Tobacco e-Cigarette/Vaping Use: Never Used Second Hand Smoke Exposure: No Substance Use Type: Marijuana Advance Directives: Yes Advance Directives on File: Yes Advance Directives Date on File: 08/05/22 Do you have a plan to hurt others: No Plan service: No Current occupational status: disabled Cognitive needs: Yes Hearing needs: No Vision needs: Yes Physical Exam ED Vital Signs: Vital Signs - 24 hr 09/23/24 10:56 09/23/24 19:12 Temperature 98.7 F 98.3 F Pulse Rate 70 68 Respiratory Rate 18 18 Blood Pressure 116/52 L 149/70 H Pulse Oximetry 94 94 Oxygen Delivery Method Room Air Room Air BMI result Body Mass Index 42.6 Const General: cooperative, healthy appearing, comfortable, no acute distress, well developed, alert, awake and Physically active Orientation/consciousness: patient oriented x3 HENMT Head: Yes normal to inspection, Yes No palpable skull fracture present, Yes normocephalic and Yes atraumatic Eyes General: appearance normal, both eyes and all related structures Neck Neck: Yes normal visual inspection, Yes full ROM, Yes no lymphadenopathy, Yes no meningeal signs, Yes trachea midline, Yes supple, No anterior neck swelling and No tender Chest Chest palpation & inspection: normal inspection of the chest and normal palpation of entire chest wall Resp Effort & Inspection: normal respiratory effort and able to speak in complete sentences Auscultation: clear to auscultation bilaterally Cardio Jugular venous distension: no JVD Heart sounds: S1 normal heart sound present and S2 normal heart sound present GI Inspection: Yes normal to inspection Palpation (GI): Soft to palpation, not firm, nontender, no guarding and not rigid General: No CVA tenderness and Yes no CVA tenderness Back/Spine/Pelvis Back: no CVA tenderness, No CVA tenderness and No back tenderness Skin General skin exam: no rashes or lesions noted, elasticity normal and turgor normal Neuro General: patient oriented x3, gait normal, tone normal, moves all extremities, Normal light touch and pain sensation, no meningeal signs, no focal motor deficits, CN's II-XI intact bilaterally and normal sensation to monofilament Extrem General: Yes normal to inspection and Yes full ROM Hand/finger images: 1. Swelling and tender on palpation. Negative for red streaks, hotness, coldness, crepitus,ecchymosis, redness or deformity. Motor exam intact but limited due to pain. Vascular neuro exam intact. Rest of extremity normal. Psych Appearance: grossly normal, well kempt and not disheveled Medications Administered Discontinued Medications Generic Name Dose Route Start Last Admin Trade Name Freq PRN Reason Stop Dose Admin Ketorolac Tromethamine 30 mg 09/23/24 15:01 09/23/24 15:08 Ketorolac Tromethamine 30 Mg/Ml Vial IM 09/23/24 15:02 30 mg ONCE ONE Administration Prednisone 40 mg 09/23/24 15:01 09/23/24 15:08 Prednisone 20 Mg Tablet PO 09/23/24 15:02 40 mg ONCE ONE Administration Medical Decision Making Medical Decision Making [facility] Narrative: [age] year female with left hand swelling x-ray still pending. Ultrasound negative for DVT. Uric acid positive. Physical exam negative for signs of septic joint, DVT, arterial occlusion, compartment syndrome, osteomyelitis, or dislocation. Toradol prednisone ordered. X-ray pending 7:38pm: X-ray pending signed out to REBEKAH payton. Will send prescriptions for gout medications 7:43pm: Xray cambe back negative. patient will be treated as gout. Not suspecting cellulitis, osteomyelitits, arterial ocllusion, nectrozing fascitits, septic joint, DVT, compartment syndrome, or arterial occlussion. patietn explained worrisome signs and informed to return to the ED immediatley. Differential Diagnosis Differential Diagnoses: The differential diagnosis associated with the presentation includes (gout, DVT, fracture, artherresi) Admission/Observation Consideration of admission/observation: Escalation of care including admission/observation considered Lab Data [facility] Lab Attestation statement: I reviewed the patient's lab results. 09/23/24 11:24 09/23/24 11:24 Labs: Lab Results 12/05/24 Range/Units 11:24 WBC 7.0 (4.8-10.8) X10*3/uL RBC 4.93 (4.20-5.50) X10*6/uL Hgb 12.2 (12.0-16.0) g/dl Hct 38.8 (37.0-47.0) % MCV 78.7 L (80.0-98.0) fL MCH 24.7 L (27.0-33.0) pg MCHC 31.4 (31.0-35.0) g/dl RDW 15.9 (11.0-16.0) % Plt Count 227 (160-400) X10*3/uL MPV 9.5 (9.4-12.3) fL Immature Gran % (Auto) 0.1 (0.0-0.4) % Neut % (Auto) 68.1 (45-73) % Lymph % (Auto) 22.5 (20-40) % Pine % (Auto) 6.7 (2-11) % Eos % (Auto) 1.7 (0-4) % Baso % (Auto) 0.9 (0-2) % Lymph # (Auto) 1.6 (1.2-4.9) X10*3/uL Pine # (Auto) 0.5 (0.1-1.2) X10*3/uL Eos # (Auto) 0.1 (0.0-0.4) X10*3/uL Baso # (Auto) 0.1 (0.0-0.2) X10*3/uL Abs Immat Gran (auto) 0.01 (0.00-0.03) X10*3/uL Absolute Neuts (auto) 4.7 (2.0-8.3) x10*3/uL Absolute Nucleated RBC 0.000 (0.0-0.012) X10*3/uL Nucleated RBC % (auto) 0.0 (0.0-0.2) /100WBC PT 11.3 (10.9-12.4) SEC INR 1.0 (0.9-1.1) Sodium 143 (135-145) mmol/L Potassium 4.2 (3.3-5.1) mmol/L Chloride 108 (96-108) mmol/L Carbon Dioxide 27 (22-29) mmol/L Anion Gap 12 (12-20) BUN 14 (9-16) mg/dL Creatinine 0.80 (0.5-1.4) mg/dL Estim Creat Clear Calc 66.3 Estimated GFR > 60 Random Glucose 95 (60-115) mg/dL Uric Acid 6.6 H (2.4-5.7) mg/dL Calcium 9.4 D (8.4-10.2) mg/dL Total Bilirubin 1.2 H (0.0-1.0) mg/dL AST 27 (5-31) U/L ALT 20 (0-31) U/L Alkaline Phosphatase 85 (39-117) U/L Total Protein 7.1 (6.5-8.0) g/dL Albumin 4.0 (3.5-5.0) g/dL Independent Interpretation I performed an independent interpretation of an: Plain X-Ray Radiology Impression Discussion of test interpretation with radiology: I have reviewed the radiologist's reading. Independent Historian Clinical information obtained from an independent historian. History obtained from or confirmed by: Other (patient) External Record Review External record reviewed: Other (prior visits) Prescription Management I considered prescription management with: Pain Medication Discharge Plan Discharge Clinical Impression: Gout Patient Disposition: Home, Self-Care Instructions: Gout (ED) Additional Instructions: Return to the ED immediately for the pain pain, swelling, redness, bluish black discoloration, chest pain, shortness of breath, numbness/tingling, any other concerning symptoms. Recommend follow-up with PCP Prescriptions: New indomethacin 50 mg capsule 50 mg PO TID 5 Days Qty: 15 0RF Rx Instructions: administer with food or milk prednisone 20 mg tablet 40 mg PO DAILY 5 Days Qty: 10 0RF colchicine 0.6 mg capsule 0.6 mg PO BID 2 Days Qty: 4 0RF No Action (DME) miscellaneous medical supply Misc See Rx Instructions .ROUTE .MEDSUPPLY Qty: 1 0RF Rx Instructions: GRAB BAR 18 (DME) miscellaneous medical supply Misc See Rx Instructions .ROUTE .MEDSUPPLY Qty: 1 0RF Rx Instructions: toilet safety frame (DME) Ultra-Light Rollator Misc See Rx Instructions .ROUTE .MEDSUPPLY Qty: 1 0RF Rx Instructions: As directed (DME) nebulizers [AeroEclipse II Nebulizer] Misc See Rx Instructions .Route Qty: 1 0RF Rx Instructions: As directed Advair HFA 230-21 mcg/actuation HFA aerosol inhaler 2 puff inhalation Q12H Qty: 12 6RF albuterol sulfate 2.5 mg /3 mL (0.083 %) solution for nebulization 2.5 mg inhalation Q6H PRN (Reason: bronchospasm) 30 Days Qty: 75 1RF (DME) CPAP Machine/Device Device See Rx Instructions .Route Qty: 1 0RF Rx Instructions: autoPAP 6-16 cmH2O metoprolol succinate 25 mg tablet extended release 24 hr 25 mg PO DAILY 90 Days Qty: 90 3RF (DME) showerhead See Rx Instructions .Route .MEDSUPPLY Qty: 1 0RF Rx Instructions: As directed escitalopram oxalate 20 mg tablet 20 mg PO BEDTIME 90 Days Qty: 90 1RF furosemide 40 mg tablet 40 mg PO QAM 30 Days Qty: 30 6RF atorvastatin 20 mg tablet 20 mg PO DAILY 90 Days Qty: 90 3RF lorazepam 0.5 mg tablet 1 mg PO DAILY PRN (Reason: anxiety) 1 Days Qty: 2 0RF cyanocobalamin (vitamin B-12) [Vitamin B-12] 1,000 mcg tablet 1,000 mcg PO DAILY Qty: 90 1RF oxycodone-acetaminophen 7.5-325 mg tablet 1 tab PO Q8H PRN (Reason: pain) 30 Days Qty: 90 0RF Rx Instructions: Partial Fill upon patient request. nystatin 100,000 unit/gram cream 1 appl topical BID PRN (Reason: rash) 14 Days Qty: 30 0RF Proair Digihaler 90 mcg/actuation aero powdr breath act w/sensor 2 inh inhalation Q4H PRN (Reason: shortness of breath or wheezing) Interventions: ED Discharge Assessment Last Done: 09/23/24 19:59 Discharge Date/Time: 09/23/24 20:00 Print Language: Pashto
--- NOTE | 2024-09-23 18:48 | PC.NURSE ---
spoke with alan Rodas re: hand wrist XR- sts she will message cross country coach
[2024-09-23 19:12] VITALS: BP 149/70; PULSE 68; RESP 18; TEMP 36.8; O2SAT 94
[2024-09-23 19:59] VITALS: BP 149/70; PULSE 68; RESP 18; TEMP 36.8; O2SAT 94
== END 2024-09-23 20:00 | disposition home or self-care (01) ==
PROVIDERS: Physician Assistant Medical; Emergency Provider Student in an Organized Health Care Education/Training Program; PCP Internal Medicine
DX: M10.042 Idiopathic gout, left hand (principal); M25.532 Pain in left wrist; R60.0 Localized edema; I44.7 Left bundle-branch block, unspecified; Z79.899 Other long term (current) drug therapy
CPT/HCPCS: 36415; 73110; 73130; 80053; 84550; 85025; 85610; 93971; 96372; 99283; 99284; J1885

== ENCOUNTER 2024-09-30 10:52 | Outpatient (AMB) | payer OTHER, SELFPAY ==
[2024-09-30 10:55] VITALS: BP 117/62; PULSE 98; O2SAT 94; BMI 43.4
--- NOTE | 2024-09-30 10:55 | A.OFFVIS_ITS ---
Vital Signs 09/30/24 10:55 Height 4 ft 11 in Weight 214 lb 15.211 oz BMI 43.4 BP 117/62 Blood Pressure Location Rt brachial Position Sitting Pulse 98 Pulse Source Doppler Pulse Oximetry (%) 94 Oxygen Delivery Method Room Air Intake Visit Reasons: COPD Allergies latex [LATEX] Allergy (Intermediate, Verified 09/30/24 10:59) RASH oxycodone Adverse Reaction (Severe, Verified 09/30/24 10:59) Itching HPI HPI COPD: Details: 68-year-old lady, nonsmoker of tobacco products, uses marijuana now followed for asthma , orthopnea, and DORA. She has been using Advair and albuterol MDI with reasonable control of her symptoms, though slowly worsening. She also has been using CPAP with good control of her underlying sleep apnea symptoms. She continues on furosemide 20 mg daily with some residual lower extremity edema. [facility] Medical History CKD (chronic kidney disease) stage 3, GFR 30-59 ml/min Acute hypoxemic respiratory failure Sepsis Acute kidney injury Abdominal pain Morbid obesity Gallstones Common bile duct dilation Elevated TSH Hair loss Murmur Moderate persistent asthma Morbid obesity Mild recurrent major depression B12 deficiency Hair loss Right hip pain Dyslipidemia Foot pain, bilateral Lumbar degenerative disc disease History of vitamin D deficiency History of pernicious anemia Arthritis Back pain History of trigger finger History of left bundle branch block (LBBB) On beta mel at home Breast cancer Mild aortic stenosis Sleep apnea Constipation Dizziness Tinnitus Chronic pain HTN (hypertension) Asthma Depression Surgical History History of cholecystectomy History of cardiac cath Hx of bilateral cataract extraction History of total right knee replacement (TKR) History of total left knee replacement (TKR) History of dilation and curettage Hx of colonoscopy Hx of esophagogastroduodenoscopy History of lymph node dissection of left axilla S/P lumpectomy, left breast Family History (Updated 05/25/24 @ 10:34 by Adrianna Richter MD) Father Prostate cancer Hypertension Mother Skin cancer Dementia Diabetes Daughter Lupus Maternal Grandmother Diabetes Hypertension Maternal Grandfather No problems noted. Paternal Grandmother No problems noted. Paternal Grandfather Cancer Brother Prostate cancer Social History Household Members: Spouse and Family Household Members Other:: Graddaughter Housing: House Do you presently have visiting nurse or other home services: Yes Alcohol intake: never Patient Tobacco Use Status: Never used Tobacco e-Cigarette/Vaping Use: Never Used Second Hand Smoke Exposure: No Substance Use Type: Marijuana Advance Directives Date on File: 08/05/22 service: No Current occupational status: disabled Cognitive needs: Yes Hearing needs: No Vision needs: Yes Review of Systems Const Denies daytime sleepiness, Denies excessive sweating, Denies fatigue, Denies fever(s), Denies lethargy, Denies malaise, Denies night sweats, Denies snoring and Denies weight loss Eyes Denies blurry vision and Denies itchy eyes ENT Denies nasal congestion, Denies post nasal drip, Denies sinus pain, Denies sinus pressure and Denies other ( Thrush) Card Denies chest pain, Reports pedal edema, Denies dyspnea, Reports dyspnea on exertion, Reports orthopnea and Reports paroxysmal nocturnal dyspnea Resp Denies cough, Denies hemoptysis, Denies excessive phlegm production, Denies dyspnea, Reports dyspnea on exertion, Denies snoring and Denies wheezing GI Denies abdominal pain and Denies heartburn Musc Denies myalgias, Denies arthralgias and Denies joint swelling Skin/Breast Denies rash Neuro Denies memory loss and Denies seizure-like activity Psych Denies abnormal sleep pattern, Denies anxiety and Denies memory loss Endo Denies excessive sweating, Denies fatigue and Denies heat intolerance Natan/Lymph Denies easy bruising Aller/Immun Denies itchy eyes, Denies seasonal rhinorrhea and Denies wheezing Physical Exam Vital Signs: Last Vital Signs Pulse 98 09/30/24 10:55 BP 117/62 09/30/24 10:55 Pulse Ox 94 09/30/24 10:55 Oxygen Delivery Method Room Air 09/30/24 10:55 BMI result Body Mass Index 43.4 Const General: no acute distress and alert Nutritional Appearance: obese Orientation/consciousness: Other orientation findings ( oriented) HEENT Head: Yes atraumatic Eyes General: appearance normal, both eyes and all related structures Sclerae: sclerae normal EOM: EOMs intact bilaterally Neck Neck: Yes supple Lymphatic: no lymphadenopathy noted Resp Effort & Inspection: normal respiratory effort and no use of accessory muscles Auscultation: clear to auscultation bilaterally Cardio Rate: regular rate Rhythm: regular rhythm Heart sounds: no gallops, no murmurs and no rubs Skin General skin exam: other ( warm) Extrem General: No clubbing, No cyanosis and Yes edema (1+ bilateral) Assessment & Plan Assessment & Plan (1) DORA on CPAP: Code(s): G47.33 - Obstructive sleep apnea (adult) (pediatric) Category: Medical Plan: Well controlled on current CPAP therapy. Continue CPAP therapy. (2) Moderate persistent asthma: Code(s): J45.40 - Moderate persistent asthma, uncomplicated Category: Medical Plan: Well controlled on current regimen of Advair and albuterol MDI. Continue current regimen. (3) Dyspnea on exertion: Code(s): R06.09 - Other forms of dyspnea Category: Medical Plan: With slowly worsening symptoms. Orthopnea is also slowly worsening. Continue current regimen of Lasix 40 mg daily. Patient does have underlying known diastolic dysfunction and aortic stenosis. Will repeat 2D echo to assess for progression. Orders: Orders CA echo transthorac w con Today R06.09 - Other forms of dyspnea Coding Level of Care Code Est Pt Level 4 (28282) Complex EM visit Add On G2211 Diagnoses DORA on CPAP G47.33 Moderate persistent asthma J45.40 Dyspnea on exertion R06.09
== END 2024-09-30 11:07 | disposition home or self-care (01) ==
PROVIDERS: PCP Internal Medicine; Visit Provider Internal Medicine Pulmonary Disease
DX: G47.33 Obstructive sleep apnea (adult) (pediatric) (principal); J45.40 Moderate persistent asthma, uncomplicated; R06.09 Other forms of dyspnea
CPT/HCPCS: 99214; G2211

== ENCOUNTER → 2024-09-30 10:52 | Outpatient (BNVA) | payer OTHER, SELFPAY | PROVIDERS: PCP Internal Medicine; Visit Provider Internal Medicine Pulmonary Disease | DX: J45.40 Moderate persistent asthma, uncomplicated (principal); G47.33 Obstructive sleep apnea (adult) (pediatric); R06.09 Other forms of dyspnea | CPT/HCPCS: 99212 ==

== ENCOUNTER 2024-10-22 13:09 | Outpatient (REF) | payer OTHER, SELFPAY ==
--- NOTE | ~2024-10-22 | MR_ITS ---
EXAMINATION: MRI RIGHT SHOULDER WITHOUT CONTRAST HISTORY: M25.311 - Other instability, right shoulder COMPARISON: Correlation is made with plain films of the right shoulder dated 08/18/2024. TECHNIQUE: Coronal T1, T2, and fat suppressed T2, axial fat suppressed proton density, and sagittal T2 weighted MR images of the right shoulder were obtained. FINDINGS: There is mild cystic change involving the posterior aspect of the glenoid. Bone marrow signal intensity is otherwise normal. There is moderate osteoarthritis of the AC joint. The humeral joint is maintained. There is mild irregularity of the joint surface of the distal supraspinatus tendon which may indicate a partial tear. No full-thickness tear is seen. The infraspinatus, teres minor, and subscapularis tendons are intact. No fluid is seen in the subdeltoid/subacromial bursa. The biceps tendon is normally located. Evaluation of the glenoid labrum is limited by lack of a joint effusion. MR/MR shoulder RT wo con IMPRESSION: Moderate osteoarthritis of the AC joint. Possible partial joint surface tear of the distal supraspinatus tendon without evidence of a full-thickness tear. Electronically signed by: Bin Oseguera MD 10/25/2024 01:22 PM EST
== END 2024-10-22 13:10 | disposition home or self-care (01) ==
LOC: HO.MRI 13:09
PROVIDERS: PCP Internal Medicine; Visit Provider Orthopaedic Surgery
DX: M25.311 Other instability, right shoulder (principal)
CPT/HCPCS: 73221

== ENCOUNTER → 2024-10-22 13:09 | Outpatient (BNV) | payer OTHER, SELFPAY | PROVIDERS: PCP Internal Medicine; Visit Provider Radiology Diagnostic Radiology | DX: M19.011 Primary osteoarthritis, right shoulder (principal); M75.111 Incomplete rotator cuff tear or rupture of right shoulder, not specified as traumatic | CPT/HCPCS: 73221 ==

== ENCOUNTER 2024-10-23 11:06 | Emergency (ER) | payer OTHER, SELFPAY ==
--- NOTE | 2024-10-23 11:20 | ED_ITS ---
HPI - Skin/Abscess/Foreign Bdy General Chief complaint: Skin/Abscess/Foreign Body Stated complaint: rash Time Seen by Provider: 10/23/24 11:25 Source: patient, RN notes reviewed and old records reviewed Mode of arrival: ambulatory History of Present Illness ED Provider: Yamile Mckenna PA-C HPI narrative: 68-year-old female with a past medical history of CKD, SHAILESH, obesity, sleep apnea, HTN, asthma, breast CA, presenting to the ED complaining of rash noted under bilateral breasts x3 weeks, worse on the left. Reports some drainage. Denies fever, chills, new exposures. Related Data Home Medications ?Medication ?Instructions ?Recorded ?Confirmed albuterol sulfate 90 mcg/actuation 2 inh inhalation Q4H PRN shortness 08/08/23 08/18/24 breath activated powder of breath or wheezing inhaler,sensor (Proair Digihaler) Previous Rx's ?Medication ?Instructions ?Recorded miscellaneous medical supply #1 ea 11/08/20 miscellaneous medical supply #1 ea 11/08/20 walker (Ultra-Light Rollator misc) #1 ea 11/08/20 nebulizers (AeroEclipse II #1 ea 09/04/22 Nebulizer) Advair HFA 230 mcg-21 2 puff inhalation Q12H #12 ea 06/30/23 mcg/actuation aerosol inhaler (fluticasone propion-salmeterol) albuterol sulfate 2.5 mg/3 mL 2.5 mg (3 mL) inhalation Q6H PRN 07/08/23 (0.083 %) solution for nebulization bronchospasm 30 days #75 mL CPAP (CPAP Machine/Device) #1 ea 11/03/23 metoprolol succinate 25 mg 25 mg PO DAILY 90 days #90 tabs 11/09/23 tablet,extended release 24 hr showerhead #1 ea 12/10/23 escitalopram oxalate 20 mg tablet 20 mg PO BEDTIME 90 days #90 tabs 12/28/23 atorvastatin 20 mg tablet 20 mg PO DAILY 90 days #90 tabs 03/25/24 lorazepam 0.5 mg tablet 1 mg (2 x 0.5 mg) PO DAILY PRN 06/06/24 anxiety 1 day #2 tabs cyanocobalamin (vitamin B-12) 1,000 mcg PO DAILY #90 tabs 07/11/24 1,000 mcg tablet (Vitamin B-12) oxycodone-acetaminophen 7.5 mg-325 1 tab PO Q8H PRN pain 30 days #90 08/10/24 mg tablet tabs colchicine 0.6 mg capsule 0.6 mg PO BID 2 days #4 caps 09/23/24 indomethacin 50 mg capsule 50 mg PO TID 5 days #15 caps 09/23/24 prednisone 20 mg tablet 40 mg (2 x 20 mg) PO DAILY 5 days 09/23/24 #10 tabs nystatin 100,000 unit/gram topical 1 appl topical BID PRN rash 2 10/10/24 cream weeks #30 grams furosemide 40 mg tablet 40 mg PO QAM #90 tabs 10/15/24 miconazole nitrate 2 % topical 1 appl topical BID 2 weeks #85 10/23/24 powder grams Allergies Allergy/AdvReac Type Severity Reaction Status Date / Time latex [LATEX] Allergy Intermediate RASH Verified 10/23/24 11:25 oxycodone AdvReac Severe Itching Verified 10/23/24 11:25 Review of Systems Review of Systems: Yes all other systems are reviewed and are negative Constitutional: Constitutional: Reports as per [facility] Past Medical History Attestation statement: The following information was validated with the patient. Source: old records reviewed Medical History CKD (chronic kidney disease) stage 3, GFR 30-59 ml/min Acute hypoxemic respiratory failure Sepsis Acute kidney injury Abdominal pain Morbid obesity Gallstones Common bile duct dilation Elevated TSH Hair loss Murmur Moderate persistent asthma Morbid obesity Mild recurrent major depression B12 deficiency Hair loss Right hip pain Dyslipidemia Foot pain, bilateral Lumbar degenerative disc disease History of vitamin D deficiency History of pernicious anemia Arthritis Back pain History of trigger finger History of left bundle branch block (LBBB) On beta mel at home Breast cancer Mild aortic stenosis Sleep apnea Constipation Dizziness Tinnitus Chronic pain HTN (hypertension) Asthma Depression Surgical History History of cholecystectomy History of cardiac cath Hx of bilateral cataract extraction History of total right knee replacement (TKR) History of total left knee replacement (TKR) History of dilation and curettage Hx of colonoscopy Hx of esophagogastroduodenoscopy History of lymph node dissection of left axilla S/P lumpectomy, left breast Family History Family History Father Prostate cancer Hypertension Mother Skin cancer Dementia Diabetes Daughter Lupus Maternal Grandmother Diabetes Hypertension Maternal Grandfather No problems noted. Paternal Grandmother No problems noted. Paternal Grandfather Cancer Brother Prostate cancer Social History Social History Household Members: Spouse and Family Household Members Other:: Graddaughter Housing: House Do you presently have visiting nurse or other home services: Yes Alcohol intake: never Patient Tobacco Use Status: Never used Tobacco e-Cigarette/Vaping Use: Never Used Second Hand Smoke Exposure: No Substance Use Type: Marijuana Advance Directives Date on File: 08/05/22 service: No Current occupational status: disabled Cognitive needs: Yes Hearing needs: No Vision needs: Yes Physical Exam Vital Signs: Vital Signs: Last Vital Signs Temp 97.4 F 10/23/24 11:22 Pulse 77 10/23/24 11:22 Resp 16 10/23/24 11:22 BP 123/62 10/23/24 11:22 Pulse Ox 94 10/23/24 11:22 O2 Del Method Room Air 10/23/24 11:22 BMI result Body Mass Index 42.4 Const: General: cooperative, healthy appearing and no acute distress Orientation/consciousness: patient oriented x3 Limitations: no limitations HEENT: Head: Yes normal to inspection and Yes atraumatic Ears: hearing grossly normal bilaterally General nose exam: Normal external nose present Face and sinus: Yes normal facial exam Eyes: General: appearance normal, both eyes and all related structures EOM: EOMs intact bilaterally Neck: Neck: Yes normal visual inspection and Yes no meningeal signs Resp: Effort & Inspection: normal respiratory effort and no respiratory distress Cardio: Rate: regular rate Skin: Other: +erythematous rash with satellite lesion s noted beneath bilateral breasts. No warmth or active drainage, pustules, fluctuance or induration Wounds: no wounds Neuro: General: patient oriented x3, tone normal and no meningeal signs Cranial nerves: Yes CN's II-XII intact bilaterally Gait exam (Neuro): Normal gait present Extrem: General: Yes normal to inspection Medical Decision Making Medical Decision Making MDM Narrative: 68-year-old female with a past medical history of CKD, SHAILESH, obesity, sleep apnea, HTN, asthma, breast CA, presenting to the ED complaining of rash noted under bilateral breasts x3 weeks, worse on the left. On exam vital signs stable, NAD, nontoxic appearing, physical exam as noted above consistent with tinea corporis. No evidence of acute cellulitis, abscess formation, SJS/TENS Plan: Topical antifungal Please refer to course for remaining clinical decision making, interpretation of labs/imaging results, and discussions with consultants and/or family members. Results discussed with patient including worrisome signs and symptoms and strict return precautions, and when to return to the emergency department. They verbalized understanding and feel safe for discharge at this time. Differential Diagnosis Differential Diagnoses: The differential diagnosis associated with the presentation includes As above Lab Data [facility] Lab Attestation statement: I reviewed the patient's lab results. External Record Review External record reviewed: Inpatient record, Office record, Outpatient record, Prior outpatient labs, Prior outpatient radiology, Primary care record and Outside ED record Tests considered The following testing was considered but not selected: As above Prescription Management I considered prescription management with: Other Chronic Conditions Patient?s care impacted by: Cancer and Other (DORA, asthma) Discharge Plan Discharge Clinical Impression: Tinea corporis Patient Disposition: Home, Self-Care Instructions: Tinea Corporis (ED) Additional Instructions: Please apply topical powder twice daily as prescribed until clinical improvement of rash If rash is worsening, spreading, you have fever, drainage from area, increasing redness return to the emergency department Please have close follow-up with your doctor and Dermatology as needed Prescriptions: New miconazole nitrate 2 % powder 1 appl topical BID 14 Days Qty: 85 0RF Rx Instructions: Until clinical resolution, typically 1-4 weeks No Action (DME) miscellaneous medical supply Misc See Rx Instructions .ROUTE .MEDSUPPLY Qty: 1 0RF Rx Instructions: GRAB BAR 18 (DME) miscellaneous medical supply Misc See Rx Instructions .ROUTE .MEDSUPPLY Qty: 1 0RF Rx Instructions: toilet safety frame (DME) Ultra-Light Rollator Misc See Rx Instructions .ROUTE .MEDSUPPLY Qty: 1 0RF Rx Instructions: As directed (DME) nebulizers [AeroEclipse II Nebulizer] Misc See Rx Instructions .Route Qty: 1 0RF Rx Instructions: As directed Advair HFA 230-21 mcg/actuation HFA aerosol inhaler 2 puff inhalation Q12H Qty: 12 6RF albuterol sulfate 2.5 mg /3 mL (0.083 %) solution for nebulization 2.5 mg inhalation Q6H PRN (Reason: bronchospasm) 30 Days Qty: 75 1RF (DME) CPAP Machine/Device Device See Rx Instructions .Route Qty: 1 0RF Rx Instructions: autoPAP 6-16 cmH2O metoprolol succinate 25 mg tablet extended release 24 hr 25 mg PO DAILY 90 Days Qty: 90 3RF (DME) showerhead See Rx Instructions .Route .MEDSUPPLY Qty: 1 0RF Rx Instructions: As directed escitalopram oxalate 20 mg tablet 20 mg PO BEDTIME 90 Days Qty: 90 1RF atorvastatin 20 mg tablet 20 mg PO DAILY 90 Days Qty: 90 3RF lorazepam 0.5 mg tablet 1 mg PO DAILY PRN (Reason: anxiety) 1 Days Qty: 2 0RF cyanocobalamin (vitamin B-12) [Vitamin B-12] 1,000 mcg tablet 1,000 mcg PO DAILY Qty: 90 1RF oxycodone-acetaminophen 7.5-325 mg tablet 1 tab PO Q8H PRN (Reason: pain) 30 Days Qty: 90 0RF Rx Instructions: Partial Fill upon patient request. nystatin 100,000 unit/gram cream 1 appl topical BID PRN (Reason: rash) 14 Days Qty: 30 0RF furosemide 40 mg tablet 40 mg PO QAM Qty: 90 2RF Proair Digihaler 90 mcg/actuation aero powdr breath act w/sensor 2 inh inhalation Q4H PRN (Reason: shortness of breath or wheezing) indomethacin 50 mg capsule 50 mg PO TID 5 Days Qty: 15 0RF Rx Instructions: administer with food or milk prednisone 20 mg tablet 40 mg PO DAILY 5 Days Qty: 10 0RF colchicine 0.6 mg capsule 0.6 mg PO BID 2 Days Qty: 4 0RF Referrals: Adrianna Sharp MD [Primary Care Provider] - 1 week Print Language: Malaysian
[2024-10-23 11:22] VITALS: BP 123/62; PULSE 77; RESP 16; TEMP 36.3; O2SAT 94; BMI 42.4
--- OUTSIDE RECORDS SUMMARY | 2024-10-23 11:32 | XMS_ITS ---
Author Organization [facility] Inspir[facility], [facility]. [facility] Care Team Providers Care Rehab Spec Name Role Phone TOM SALEH Don Unavailable Unavailable LILLIAN STANTON Unavailable Unavailable MLAPAJyoti JIM K Unavailable Unavailable STEPHANIE SAMPSON JR Unavailable Unavaila ble SHE, ZARINA A Unavailable Unavailable Unavailable Unavailable Unavailable CROOKS, PETER Unavailable Unavailable CROOKS, PETER Unavailable Unavailable DANE, THIERNO H Unavailable Unavailable NICOLE, JAEHYUN Unavailable Unavailable PC, IP USE ONLY - [facility] Unavailable Unavailable STEPHANIE SAMPSON JR Unavailable Unavaila ble VALERIY PETER Unavailable Unavailable ZAWODNIAK, JOLLY K Unavailable Unavailabl e ZAWPATYNIAK, JOLLY K Unavailable Unavailabl e DANE, THIERNO H Unavailable Unavailable LILY YBARRA Unavailable Unavailable LAPADULA, SARAN V. Unavailable Unavailable LAPADULA, SARAN V. Unavailable Unavailable NICOLE, JAEHYUN Unavailable Unavailable PHAN, NATALIIA Unavailable Unavailable PHAN, NATALIIA Unavailable Unavailable BEBB, CALI Unavailable Unavailable BEBB, CALI Unavailable Unavailable PHAN, NATALIIA Unavailable Unavailable PHAN, NATALIIA Unavailable Unavailable SHE, ZARINA A Unavailable Unavailable YULISA PERKINS L Unavailable Unavailable KIREYCZYK, MALIHA A Unavailable Unavailable KIREYCZYK, MALIHA A Unavailable Unavailable YVES FRANCO Unavailable Unavailable YVES FRANCO Unavailable Unavailable FERIZAJ, REDI Unavailable Unavailable FERIZAJ, REDI Unavailable Unavailable ELIANE, CRISTELA A Unavailable Unavailable FERIZAJ, REDI Unavailable Unavailable Pcp, No Primary Care Provider UnavailDash Richter MD, Adrianna Primary Care Provider Reason for Referral Specialty Diagnoses / Procedures Referred By Raheel t Referred To Contact Diagnoses Acute gastric ulcer without hemorrhage or perforation Lillian Stanton DO [address] [place] [address] Referral ID Status Reason Start Date Expiration Date V isits Requested Visits Authorized [id number] Pending Review 05/06/2023 05/06/[phone] Question Answer Primary Reason for Home Health (Enter diagnosis; avoid symptoms): Choledocholithiasis [[id number]] Requested SOC Date 05/07/2023 Physician to follow patient's care PCP At Home Intensive? No Comments Please evaluate Ismael Juárez for admission to HomeCare Services The following services are medically necessary home health services: Nursing: Disease Process: assess for S/S of decompensation or adverse effects of new/exacerbated disease Medication Management and Teaching Neurological Assessment and Teaching Nutritional Status: assess and provide teaching about disease specific diet recommendations Safety Eval: assess for additional needs Physical Therapy: ADL/IADLs: improve independence Gait Training Home Safety Evaluation and Teaching Safe Steps Program: improve gait instability, functional balance impairments Strengthening: improve function and mobility Secondary Disciplines &Services: Occupational Therapy: , ADL/IADLs: improve independence, Home Safety Evaluation and Teaching, and Strengthening: improve function and mobility Special Instructions: None This patient is homebound because: Activity Limitations related to weakness, endurance and Extreme weakness r/t disease and illness Date of F2F Encounter: I verify that a F2F Encounter occurred on 05/06/23 upon which the patient was found to be homebound and require intermittent skilled care by a SN, PT, ST or OT. Services. The encounter findings are communicated to the certifying physician Specialty Diagnoses / Procedures Referred By Raheel estrada Referred To Contact Diagnoses Liver abscess Thierno Victoria MD [address] [place] [address] Referral ID Status Reason Start Date Expiration Date V isits Requested Visits Authorized [id number] Pending Review 06/03/2023 06/03/[phone] Question Answer Primary Reason for Home Health (Enter diagnosis; avoid symptoms): Liver abscess [[id number]] Requested SOC Date Physician to follow patient's care PCP At Home Intensive? No Comments Please evaluate Ismael Juárez for admission to HomeCare Services The following services are medically necessary home health services: Nursing: Cardiopulmonary Care: instruct in disease and medication management Disease Process: assess for S/S of decompensation or adverse effects of new/exacerbated disease Medication Management and Teaching Neurological Assessment and Teaching Nutritional Status: assess and provide teaching about disease specific diet recommendations Safety Eval: assess for additional needs Physical Therapy: ADL/IADLs: improve independence Home Safety Evaluation and Teaching Safe Steps Program: improve gait instability, functional balance impairments Strengthening: improve function and mobility Secondary Disciplines &Services: None Special Instructions: None This patient is homebound because: Activity Limitations related to weakness and Extreme weakness r/t disease and illness Date of F2F Encounter: I verify that a F2F Encounter occurred on 06/02/23 upon which the patient was found to be homebound and require intermittent skilled care by a SN, PT, ST or OT. Services. The encounter findings are communicated to the certifying physician Advance Directives Latest Code Status on File Code Status Date Activated Date Inactivated Comments Full Code 04/28/2023 9:15 PM Latest Code Status on File Code Status Date Activated Date Inactivated Comments Full Code 05/24/2023 3:08 PM Question Answer Comments Decision Thoroughly Discussed with: Patient Code Status History Code Status Date Activated Date Inactivated Comments Full Code 04/28/2023 9:15 PM 05/24/2023 2:10 PM Additional Source Comments Scheduled Active and Recently Administ ered Medications (unrecognized section and content) Medication Order 05/04/2023 05/05/2023 05/06/2023 cholecalciferol tablet 1,000 Units 1,000 Units, Oral, Daily, First dose on Fri04/29/23 at 0900 0842 (Given - Provider: Eva Hall RN) 0842 (Given - Provider: Erich Blakely RN) 0946 (Given - Provider: Eulalia Hinds RN) cyanocobalamin (VITAMIN B-12) tablet 1,000 mcg 1,000 mcg, Oral, Daily, First dose on Fri04/29/23 at 0900 0842 (Given - Provider: Eva Hall RN) 0842 (Given - Provider: Erich Blakely RN) 0947 (Given - Provider: Eulalia Hinds RN) enoxaparin (LOVENOX) syringe 40 mg 40 mg, Subcutaneous, Every 12 hours scheduled, First dose (after last modification) on Fri05/01/23 at 2100 0842 (Given - Provider: Eva Hall RN)2106 (Given - Provider: Yuki Garcia RN) 0842 (Given - Provider: Erich Blakely RN)2356 (Given - Provider: Andrez Francisco RN) 0945 (Given - Provider: Eulalia Hinds RN)2100 (Due) escitalopram (LEXAPRO) tablet 10 mg 10 mg, Oral, Daily, First dose on Fri04/29/23 at 0900 0842 (Given - Provider: Eva Hall RN) 0842 (Given - Provider: Erich Blakely RN) 0947 (Given - Provider: Eulalia Hinds RN) ferrous sulfate EC tablet 325 mg 325 mg, Oral, Daily, First dose on Fri04/29/23 at 0900, Administer ferrous sulfate 2 hours prior to, or 4 hours after antacids. Should be taken with water or juice on an empty stomach; may be administered with food to prevent irritation; however, not with cereals, dietary fiber, tea, coffee, eggs, or milk *DO NOT CHEW OR CRUSH* 0900 (Not Given - Provider: Eva Hall RN - Reason: See Provider Order) 0900 (Not Given - Provider: Karen Carvalho RN - Reason: See Provider Order) 0900 (Not Given - Provider: Mamadou Millard RN - Reason: See Provider Order) furosemide (LASIX) tablet 40 mg 40 mg, Oral, Daily, First dose on Fri05/04/23 at 0900, Hold for SBP less than 100 mmHg. Notify provider if a dose is held. 0842 (Given - Provider: Eva Hall RN) 0841 (Hold - Provider: Erich Blakely RN - Reason: Change in vital signs) 0947 (Given - Provider: Eulalia Hinds RN) metoPROLOL SUCCINATE (TOPROL-XL) 24 hr tablet 25 mg 25 mg, Oral, Daily, First dose on Fri04/29/23 at 0900, Hold for HR less than 45 bpm and/or SBP less than 90 mmHg. Notify provider if a dose is held. *DO NOT CHEW OR CRUSH* 0842 (Given - Provider: Eva Hall RN) 0841 (Hold - Provider: Erich Blakely RN - Reason: Change in vital signs) 0946 (Given - Provider: Eulalia Hinds RN) PRN Medication Order 05/04/2023 05/05/2023 05/06/2023 acetaminophen (TYLENOL) tablet 650 mg 650 mg, Oral, Every 6 hours PRN, mild pain 1-3, headaches, Starting on Fri04/28/23 at 2100 albuterol (PROVENTIL HFA; VENTOLIN HFA) inhaler 2 puff 2 puff, Inhalation, Every 6 hours PRN, wheezing, shortness of breath, Starting on Fri04/28/23 at 2214, 0810 (Given - Provid er: Davis Martinez CRNA) bisacodyl (DULCOLAX) suppository 10 mg 10 mg, Rectal, Daily PRN, constipation, Starting on Fri04/28/23 at 2100 diphenhydrAMINE (BENADRYL EXTRA STRENGTH) 2 % cream Topical, 4 times daily PRN, itching, Starting on Fri05/05/23 at 0035, Site of application: Back 0644 (Given - Provider: Yuki Garcia RN) docusate sodium (COLACE) capsule 100 mg 100 mg, Oral, Every 12 hours PRN, constipation, Starting on Fri04/28/23 at 2100 haloperidol lactate (HALDOL) 5 mg/mL injection 0.5 mg 0.5 mg, Intravenous, Once PRN, refractory nausea and vomiting, Starting on Fri04/29/23 at 1729, For 1 dose, PACU (only), If ordered IV Push: administer undiluted at a maximum rate of 5 mg/minute. ipratropium-albuterol (DUONEB) 0.5-2.5 mg/3 mL nebulizer solution 3 mL 3 mL, Nebulization, Every 6 hours PRN, shortness of breath, Starting on Fri04/28/23 at 2214, Albuterol expressed in base strength. Albuterol sulfate 3 mg = albuterol (base) 2.5 mg. melatonin tablet 3 mg 3 mg, Oral, Nightly PRN, insomnia, Starting on Emi 05/01/23 at 0118 ondansetron (ZOFRAN) injection 4 mg 4 mg, Intravenous, Once PRN, nausea, vomiting, Starting on Fri04/28/23 at 2100, For 1 dose polyethylene glycol (miraLAx) packet 17 g 17 g, Oral, Daily PRN, constipation, Starting on Fri04/28/23 at 2100, Stir and dissolve in 4-8 oz of fluids. senna (SENOKOT) tablet 2 tablet 2 tablet, Oral, Nightly PRN, constipation, Starting on 04/28/23 at 2100 Scheduled Medication Order 06/01/2023 06/02/2023 06/03/2023 atorvastatin (LIPITOR) tablet 20 mg 20 mg, Oral, Daily, First dose on 05/25/23 at 0900 0839 (Given - Provider: Nikolai Mixon RN) 1137 (Given - Provider: Jenny Quintero RN) 0918 (Given - Provider: Eva Small, LAURA) escitalopram (LEXAPRO) tablet 10 mg 10 mg, Oral, Daily, First dose on 05/24/23 at 1530 0839 (Given - Provider: Nikolai Mixon RN) 1134 (Given - Provider: Jenny Quintero RN) 0918 (Given - Provider: Eva Small, LAURA) fluticasone-vilanterol (BREO ELLIPTA) 100-25 MCG/ACT inhaler 1 puff 1 puff, Inhalation, Daily, First dose on 05/25/23 at 0930, Rinse mouth with water after inhalation and spit. 0840 (Given - Provider: Nikolai Mixon RN) 1137 (Given - Provider: Jenny Quintero RN) 0935 (Not Given - Provider: Eva Small RN - Reason: Patient/family refused) furosemide (LASIX) tablet 40 mg 40 mg, Oral, Daily, First dose on 05/24/23 at 1530, Hold for SBP less than 100 mmHg. Notify provider if a dose is held. 0900 (Hold - Provider: Nikolai Mixon RN - Reason: See Provider Order) 0900 (Not Given - Provider: Jenny Quintero RN - Reason: See Provider Order) 0900 (Not Given - Provider: Eva Small RN - Reason: Change in order) guaiFENesin (MUCINEX) 12 hr tablet 600 mg 600 mg, Oral, 2 times daily, First dose on Emi 05/29/23 at 1130, *DO NOT CHEW, CRUSH, OR BREAK* 0839 (Given - Provider: Nikolai Mixon RN)2043 (Given - Provider: Briseida Ruiz RN) 1134 (Given - Provider: Jenny Quintero, LAURA)2031 (Given - Provider: Eleanor Whitaker, LAURA) 0918 (Given - Provider: Eva Small, LAURA)2100 (Due) heparin (porcine) 5000 unit/mL injection 5,000 Units 5,000 Units, Subcutaneous, Every 8 hours scheduled, First dose on Fri05/28/23 at 1730, For subcutaneous use the injection sites should be rotated (usually left and right portions of the abdomen, above iliac crest). 0614 (Given - Provider: Erich Blakely RN)1308 (Given - Provider: Nikolai Mixon RN)2042 (Given - Provider: Briseida Ruiz RN) 0540 (Given - Provider: Briseida Ruiz RN)1520 (Given - Provider: Jenny Quintero RN)2030 (Not Given - Provider: Eleanor Whitaker RN - Reason: Patient/family refused) 0500 (Given - Provider: Swathi Dave RN)1400 (Due - Provider: Nikolai Mixon RN)2200 (Due - Provider: Nikolai Mixon RN) Lactobacillus acidophilus capsule 2 capsule 2 capsule, Oral, 2 times daily, First dose on Fri05/26/23 at 0900 0839 (Given - Provider: Nikolai Mixon RN)2042 (Given - Provider: Briseida Ruiz RN) 1135 (Given - Provider: Jenny Quintero RN)2031 (Given - Provider: Eleanor Whitaker RN) 0917 (Given - Provider: Eva Small, LAURA)2100 (Due) metoPROLOL SUCCINATE (TOPROL-XL) 24 hr tablet 25 mg 25 mg, Oral, Daily, First dose on Fri05/25/23 at 0900, Hold for HR less than 45 bpm and/or SBP less than 90 mmHg. Notify provider if a dose is held. *DO NOT CHEW OR CRUSH* 0839 (Given - Provider: Nikolai Mixon RN) 1134 (Given - Provider: Jenny Quintero RN) 0918 (Given - Provider: Eva Small RN) PANTOprazole (PROTONIX) EC tablet 40 mg 40 mg, Oral, 2 times daily, First dose on 05/24/23 at 2100, *DO NOT CHEW OR CRUSH* 0839 (Given - Provider: Nikolai Mixon RN)2042 (Given - Provider: Briseida Ruiz, LAURA) 1133 (Given - Provider: Jenny Quintero RN)2032 (Given - Provider: Eleanor Whitaker RN) 0918 (Given - Provider: Eva Small RN)2100 (Due) potassium chloride (KLOR-CON M20) CR tablet 20 mEq (COMPLETED) 20 mEq, Oral, Every 2 hours, First dose on Fri06/01/23 at 1300, For 2 doses, Swallow tablets whole; do not crush, chew, or suck on tablet. Take with meals and a full glass of water or other liquid to minimize the risk of GI irritation. Swallow tablets whole; do not crush, chew, or suck on tablet. Take with meals and a full glass of water or other liquid to minimize the risk of GI irritation. 1308 (Given - Provider: Nikolai Mixon RN)1516 (Given - Provider: Nikolai Mixon RN) potassium chloride (KLOR-CON M20) CR tablet 20 mEq () 20 mEq, Oral, Every 2 hours, First dose on 06/02/23 at 1600, For 2 doses, Swallow tablets whole; do not crush, chew, or suck on tablet. Take with meals and a full glass of water or other liquid to minimize the risk of GI irritation. Swallow tablets whole; do not crush, chew, or suck on tablet. Take with meals and a full glass of water or other liquid to minimize the risk of GI irritation. 1831 (Given - Provider: Karen Carvalho RN)1832 (Not Given - Provider: Karen Carvalho RN - Reason: See Provider Order) remdesivir (VEKLURY) 100 mg in sodium chloride (NS) 0.9 % 250 mL IVPB-WTD (CANCELED)(Linked Group 1) 100 mg, Intravenous, Administer over 30 Minutes, Every 24 hours, First dose on 05/31/23 at 1100, For 4 doses, *DO NOT INFUSE REMDESIVIR WITH OTHER MEDICATIONS* *FLUSH LINE WITH AT LEAST 30ML NS AFTER INFUSION IS COMPLETE*, I confirm patient is symptomatic and has initial postive SARS-CoV-2 result within 10 days: Yes, I confirm patient requires supplemental oxygen in the form of nasal cannula, high-flow device, or non-invasive ventilation or requiring an increase in baseline oxygen flow rate due to COVID-19 in those on chronic oxygen. Yes, Please document the authorizing provider: Infectious Disease Physician, Specify Approving Provider: 1112 (New Bag - Provider: Nikolai Mixon RN)1147 (Stopped - Provider: Nikolai Mixon RN) 1137 (New Bag - Provider: Jenny Quintero RN)1207 (Stopped - Provider: Jenny Quintero RN) sulfamethoxazole-trimetho prim (BACTRIM DS,SEPTRA DS) 800-160 MG tablet 1 tablet 1 tablet, Oral, Every 12 hours scheduled, First dose on Fri06/02/23 at 2100, Administer with at least 8 ounces of water, All antimicrobials used at [facility] require an indication. Please complete the following documentation. Bacterial Infection Documented, Type of Therapy: New Therapy, Indication: Other, Specify: gerardo jack, liver abscess 2031 (Given - Provider: Eleanor Whitaker RN) 09 (Given - Provider: Eva Small RN)2100 (Due) vancomycin (VANCOCIN) 1,500 mg in sodium chloride (NS) 0.9 % 250 mL IVPB-WTD (CANCELED) 1,500 mg, Intravenous, Administer over 90 Minutes, Every 24 hours, First dose on Fri05/25/23 at 1200, All antimicrobials used at [facility] require an indication. Please complete the following documentation. 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, Indication: Bacteremia 1308 (New Bag - Provider: Nikolai Mixon RN)1438 (Stopped - Provider: Nikolai Mixon RN) 1521 (New Bag - Provider: Jenny Quintero RN)1651 (Stopped - Provider: Karen Carvalho RN) PRN Medication Order 06/01/2023 06/02/2023 06/03/2023 acetaminophen (TYLENOL) tablet 975 mg 975 mg, Oral, Every 8 hours PRN, mild pain 1-3, fever greater than 101.5 degrees F, fever greater than 100.4 degrees F, Starting on Fri05/30/23 at 1235 albuterol (PROVENTIL HFA; VENTOLIN HFA) inhaler 2 puff 2 puff, Inhalation, Every 6 hours PRN, wheezing, shortness of breath, Starting on Fri05/25/23 at 0922 0919 (Given - Provid er: Eva Small RN) benzonatate (TESSALON) capsule 100 mg 100 mg, Oral, 3 times daily PRN, cough, Starting on Emi 05/29/23 at 1107, *DO NOT CRUSH, CHEW, BREAK OR DISSOLVE* metoCLOPRAMIDE (REGLAN) injection 10 mg 10 mg, Intravenous, Every 6 hours PRN, nausea, vomiting, If nausea doesn't improve with Zofran, Starting on Fri05/28/23 at 1821, If administering IV push, dilute with 10 mL of NS give over 2 minutes. ondansetron (ZOFRAN) injection 4 mg 4 mg, Intravenous, Every 6 hours PRN, nausea, vomiting, Starting on Fri05/28/23 at 1821 traMADol (ULTRAM) tablet 50 mg 50 mg, Oral, Every 6 hours PRN, moderate to moderately severe pain 4-6, Starting on Fri05/25/23 at 0920 0332 (Given - Provider: Briseida Ruiz RN) Linked Groups Order Group 1: remdesivir (VEKLURY) 200 mg in sodium chloride (NS) 0.9 % 250 mL IVPB (COMPLETED) 200 mg, Intravenous, Administer over 30 Minutes, Once, On Fri05/30/23 at 1100, For 1 dose
*DO NOT INFUSE REMDESIVIR WITH OTHER MEDICATIONS* *FLUSH LINE WITH AT LEAST 30ML NS AFTER INFUSION IS COMPLETE*
I confirm patient is symptomatic and has initial postive SARS-CoV-2 result within 10 days: Yes
I confirm patient requires supplemental oxygen in the form of nasal cannula, high-flow device, or non- invasive ventilation or requiring an increase in baseline oxygen flow rate due to COVID- 19 in those on chronic oxygen. Yes
Please document the authorizing provider: Infectious Disease Physician
Specify Approving Provider: RQ Followed by remdesivir (VEKLURY) 100 mg in sodium chloride (NS) 0.9 % 250 mL IVPB-WTD (CANCELED)Jump to med 100 mg, Intravenous, Administer over 30 Minutes, Every 24 hours, First dose on 05/31/23 at 1100, For 4 doses
*DO NOT INFUSE REMDESIVIR WITH OTHER MEDICATIONS* *FLUSH LINE WITH AT LEAST 30ML NS AFTER INFUSION IS COMPLETE*
I confirm patient is symptomatic and has initial postive SARS-CoV-2 result within 10 days: Yes
I confirm patient requires supplemental oxygen in the form of nasal cannula, high-flow device, or non-invasive ventilation or requiring an increase in baseline oxygen flow rate due to COVID-19 in those on chronic oxygen. Yes
Please document the authorizing provider: Infectious Disease Physician
Specify Approving Provider: RQ Care Teams (unrecognized sec tion and content) Rehab Spec Relationship Specialty Start Date End Date Pcp, [address] [address] PCP - General 04/28/23 04/28/23 Adrianna Sharp MD [address] [place] [address] PCP - General Family Medicine 04/29/23 Rehab Spec Relationship Specialty Start Date End Date Adrianna Sharp MD [address] [place] [address] PCP - General Family Medicine 04/29/23 This clinical document has been generated using [employer] software that has been certified by the Office of the National Coordinator for Health Information Technology (ONC 15.99.04.3023.Diam.31.00.0.572608) and the National Committee for Pulverizer Tender (NCQA, as an eMeasure certified technology). FOR RECORDS PERTAINING TO PATIENTS WHO ARE OR HAVE BEEN ENROLLED IN A CHEMICAL DEPENDENCY/SUBSTANCEABUSE PROGRAM, SOME INFORMATION MAY BE OMITTED. This clinical summary was aggregated from multiple sources. Caution should be exercised in using it in the provision of clinical care. This summary normalizes information from multiple sources, and as a consequence, information in this document may materially change the coding, format and clinical context of patient data. In addition, data may be omitted in some cases. CLINICAL DECISIONS SHOULD BE BASED ON THE PRIMARY CLINICAL RECORDS. [employer] provides no warranty or guarantee of the accuracy or completeness of information in this document.The following information is based on time limited clinical information
== END 2024-10-23 11:37 | disposition home or self-care (01) ==
PROVIDERS: Emergency Provider Emergency Medicine; PCP Internal Medicine
DX: B35.4 Tinea corporis (principal); R21 Rash and other nonspecific skin eruption
CPT/HCPCS: 99281; 99283

== ENCOUNTER 2024-10-29 14:09 | Outpatient (REF) | payer OTHER, SELFPAY ==
--- OUTSIDE RECORDS SUMMARY | 2024-10-29 14:12 | XMS_ITS ---
Author Organization [facility] Achieve X, Inventalator. [facility] Care Team Providers Care Clothing Worker Name Role Phone TOM SALEH Don Unavailable Unavailable LILLIAN STANTON Unavailable Unavailable MLAPAJyoti JIM K Unavailable Unavailable STEPHANIE SAMPSON JR Unavailable Unavaila ble SHE, ZARINA A Unavailable Unavailable Unavailable Unavailable Unavailable CROOKS, PETER Unavailable Unavailable CROOKS, PETER Unavailable Unavailable DANE, THIERNO H Unavailable Unavailable NICOLE, JAEHYUN Unavailable Unavailable PC, IP USE ONLY - [place] [facility] Unavailable Unavailable STEPHANIE SAMPSON JR Unavailable Unavaila ble VALERIY, PETER Unavailable Unavailable NICOLE, JAEHYUN Unavailable Unavailable PHAN, NATALIIA Unavailable Unavailable PHAN, NATALIIA Unavailable Unavailable LILY YBARRA Unavailable Unavailable DANE, THIERNO H Unavailable Unavailable LAPADULA, SARAN V. Unavailable Unavailable LAPADULA, SARAN V. Unavailable Unavailable ZAWODNIAK, JOLLY K Unavailable Unavailabl e ZAWODNIAK, JOLLY K Unavailable Unavailabl e BEBB, CALI Unavailable Unavailable BEBB, CALI Unavailable [...] hemorrhage or perforation Lillian Stanton DO [address] [place] [address] Referral ID Status Reason Start Date Expiration Date V isits Requested Visits Authorized [id number] Pending Review 05/06/2023 05/06/[phone] Question Answer Primary Reason for Home Health (Enter diagnosis; avoid symptoms): Choledocholithiasis [[id number]] Requested SOC Date 05/07/2023 Physician to follow [...] Contact Diagnoses Liver abscess Thierno Victoria MD [address] [place] [address] Referral ID Status Reason Start Date Expiration Date V isits Requested Visits Authorized [id number] Pending Review 06/03/2023 06/03/[phone] Question Answer Primary Reason for Home Health (Enter diagnosis; avoid symptoms): Liver abscess [[id number]] Requested SOC Date Physician to follow patient's [...] Eva Hall RN)2106 (Given - Provider: Yuki Gracia RN) 0842 (Given - Provider: Erich Blakely [...] Provider Order) 0900 (Not Given - Provider: Karne Carvalho RN - Reason: See Provider Order) [...] ounces of water, All antimicrobials used at [facility] require an indication. Please complete the following documentation. Bacterial Infection Documented, Type of Therapy: New Therapy, Indication: Other, Specify: gerardo jack, liver abscess 2031 (Given - Provider: Eleanor Whitaekr RN) 09 (Given - Provider: Eva Small RN)2100 (Due) vancomycin (VANCOCIN) 1,500 mg in sodium chloride (NS) 0.9 % 250 mL IVPB-WTD (CANCELED) 1,500 mg, Intravenous, Administer over 90 Minutes, Every 24 hours, First dose on Fri05/25/23 at 1200, All antimicrobials used at [facility] require an indication. Please complete the following documentation. 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 of Therapy: Continued from CLINICAL PROJECT ASSISTANT, Indication: Bacteremia 1308 (New Bag - Provider: [...] Care Teams (unrecognized sec tion and content) Clothing Worker Relationship Specialty Start Date End Date Pcp, [address] [address] PCP - General 04/28/23 04/28/23 Adrianna Sharp MD [address] [place] [address] PCP - General Family Medicine 04/29/23 Clothing Worker Relationship Specialty Start Date End Date Adrianna Sharp MD [address] [place] [address] PCP - General Family Medicine 04/29/23 This clinical document has been generated using [employer] software that has been certified by the Office of the National Coordinator for Health Information Technology (ONC 15.99.04.3023.Diam.[id number]) and the National Committee for Team[employer] Consultant (NCQA, as an eMeasure certified technology). FOR [...] BE BASED ON THE PRIMARY CLINICAL RECORDS. [employer] provides no warranty or guarantee of the accuracy or completeness of information in this document.The following information is based on time limited clinical information
[2024-10-29 15:00] LABS: Influenza A PCR NEGATIVE (Negative); Influenza B PCR NEGATIVE (Negative); Resp Syncy Virus RNA Qual PCR NEGATIVE (Negative); SARS COV2 PCR INHOUSE NEGATIVE (Negative)
== END 2024-10-29 14:10 | disposition home or self-care (01) ==
LOC: HO.LAB 14:09
PROVIDERS: PCP Internal Medicine; Visit Provider Internal Medicine
DX: R09.89 Other specified symptoms and signs involving the circulatory and respiratory systems (principal)
CPT/HCPCS: 0241U

== ENCOUNTER 2024-11-04 13:18 | Outpatient (AMB) | payer OTHER, SELFPAY ==
--- NOTE | 2024-11-04 13:19 | A.OFFVIS_ITS ---
Intake Visit Reasons: TH- MRI review Rotator cuff RT shoulder Intake Note: Marita is a 68 year old female who presented with complaints of progressively worsening right shoulder pain and stiffness. She describes her pain as sharp in nature. Her pain has gotten worse over the last few years in spite of continued non operative treatments. She has had cortisone injections in the past which gave her minimal relief. She has also tried Tylenol and anti-inflammatory medicines which gave her only mild relief. The patient states that she has difficulty lifting her right hand above shoulder height. Allergies latex [LATEX] Allergy (Intermediate, Verified 11/04/24 13:20) RASH oxycodone Adverse Reaction (Severe, Verified 11/04/24 13:20) Itching Medication List - Last Reconciled 11/04/24 by Maciej Tran MD Advair HFA 230-21 mcg/actuation (fluticasone propion-salmeterol) 2 puffs inhalation Q12H NS albuterol sulfate 90 mcg/actuation (Proair Digihaler) 2 inhalations inhalation Q4H PRN albuterol sulfate 2.5 mg (3 mL) inhalation Q6H PRN 30 days atorvastatin 20 mg PO DAILY 90 days colchicine 0.6 mg PO BID 2 days CPAP (CPAP Machine/Device) autoPAP 6-16 cmH2O cyanocobalamin (vitamin B-12) (Vitamin B-12) 1,000 mcg PO DAILY escitalopram oxalate 20 mg PO BEDTIME 90 days furosemide 40 mg PO QAM indomethacin 50 mg PO TID 5 days lorazepam 1 mg (2 x 0.5 mg) PO DAILY PRN 1 day metoprolol succinate ER 25 mg PO DAILY 90 days miconazole nitrate 2% 1 appl topical BID 2 weeks [employer] GRAB BAR 18 [employer] supply toilet safety frame nebulizers (AeroEclipse II Nebulizer) As directed nystatin 1 appl topical BID PRN 2 weeks oxycodone-acetaminophen 7.5-325 mg 1 tab PO Q8H PRN 30 days prednisone 40 mg (2 x 20 mg) PO DAILY 5 days [showerhead As directed] walker (Ultra-Light Rollator misc) As directed [facility] Medical History CKD (chronic kidney disease) stage 3, GFR 30-59 ml/min Acute hypoxemic respiratory failure Sepsis Acute kidney injury Abdominal pain Morbid obesity Gallstones Common bile duct dilation Elevated TSH Hair loss Murmur Moderate persistent asthma Morbid obesity Mild recurrent major depression B12 deficiency Hair loss Right hip pain Dyslipidemia Foot pain, bilateral Lumbar degenerative disc disease History of vitamin D deficiency History of pernicious anemia Arthritis Back pain History of trigger finger History of left bundle branch block (LBBB) On beta mel at home Breast cancer Mild aortic stenosis Sleep apnea Constipation Dizziness Tinnitus Chronic pain HTN (hypertension) Asthma Depression Surgical History History of cholecystectomy History of cardiac cath Hx of bilateral cataract extraction History of total right knee replacement (TKR) History of total left knee replacement (TKR) History of dilation and curettage Hx of colonoscopy Hx of esophagogastroduodenoscopy History of lymph node dissection of left axilla S/P lumpectomy, left breast Family History Father Prostate cancer Hypertension Mother Skin cancer Dementia Diabetes Daughter Lupus Maternal Grandmother Diabetes Hypertension Maternal Grandfather No problems noted. Paternal Grandmother No problems noted. Paternal Grandfather Cancer Brother Prostate cancer Social History Household Members: Spouse and Family Household Members Other:: Graddaughter Housing: House Do you presently have visiting nurse or other home services: Yes Alcohol intake: never Patient Tobacco Use Status: Never used Tobacco e-Cigarette/Vaping Use: Never Used Second Hand Smoke Exposure: No Substance Use Type: Marijuana Advance Directives Date on File: 08/05/22 service: No Current occupational status: disabled Cognitive needs: Yes Hearing needs: No Vision needs: Yes Physical Exam Const Other: No physical exam was performed today because it was a telehealth appointment Telehealth Telehealth Telehealth Platform: Telephone Location of provider rendering services: practice address Location of patient: address on file Patient Identification confirmed using: Name, : Yes Telehealth method: voice only Patient verbally consented to treatment: Yes Patient verbally consented to billing insurance company: Yes Patient informed of any privacy concerns related to visit: Yes Minutes spent on Phone/Video with Pt.: 14 Results Reviewed Results Reviewed: MRI of the patient's right shoulder show severe acromioclavicular joint narrowing, a type 3 acromion, signal change within the supraspinatus tendon most likely due to adhesive capsulitis Assessment & Plan Assessment & Plan (1) Impingement of right shoulder: Code(s): M25.811 - Other specified joint disorders, right shoulder Category: Medical Plan Ms. Murray presents with progressively worsening right shoulder pain and stiffness due to impingement syndrome, acromioclavicular joint arthritis and adhesive capsulitis. I had a lengthy discussion with the patient regarding the treatment options. At this point she has failed continued non operative treatments. The risks and benefits of right shoulder surgery were discussed at length with the patient. The patient wishes to proceed with surgery. Surgery will most likely involve right shoulder diagnostic arthroscopy with distal clavicle excision, acromioplasty, capsular release and manipulation under anesthesia. The patient will be scheduled for next available date. She will follow-up as instructed. Feel free to call me at any time should questions regarding her orthopedic management arise. Coding Level of Care Code Tele Est Pt Level 2 (27657) Diagnoses Impingement of right shoulder M25.811
== END 2024-11-04 13:22 | disposition home or self-care (01) ==
LOC: HO.HOS 13:18
PROVIDERS: PCP Internal Medicine; Visit Provider Orthopaedic Surgery
DX: M25.811 Other specified joint disorders, right shoulder (principal)
CPT/HCPCS: 99214; 99442

== ENCOUNTER 2024-11-15 08:16 | Outpatient (AMB) | payer OTHER, SELFPAY ==
--- NOTE | 2024-11-15 08:20 | A.OFFVIS_ITS ---
Vital Signs 11/15/24 08:21 Height 4 ft 11 in Weight 204 lb 9.423 oz BMI 41.3 BP 128/72 Blood Pressure Location Rt brachial Position Sitting Pulse 67 Pulse Source Monitor Intake Visit Reasons: HS pt/ Ruarke/ shoulder surgery Analysis Evaluator Required: No Supervisor Pigment Making: Supervisor Pigment Making Present Allergies latex [LATEX] Allergy (Intermediate, Verified 11/15/24 08:25) RASH oxycodone Adverse Reaction (Severe, Verified 11/15/24 08:25) Itching Medication List - Last Reconciled 11/15/24 by ABHIJEET SilverC Advair HFA 230-21 mcg/actuation (fluticasone propion-salmeterol) 2 puffs inhalation Q12H NS albuterol sulfate 90 mcg/actuation (Proair Digihaler) 2 inhalations inhalation Q4H PRN albuterol sulfate 2.5 mg (3 mL) inhalation Q6H PRN 30 days atorvastatin 20 mg PO DAILY 90 days colchicine 0.6 mg PO BID 2 days CPAP (CPAP Machine/Device) autoPAP 6-16 cmH2O cyanocobalamin (vitamin B-12) (Vitamin B-12) 1,000 mcg PO DAILY escitalopram oxalate 20 mg PO BEDTIME 90 days furosemide 40 mg PO QAM indomethacin 50 mg PO TID 5 days lorazepam 1 mg (2 x 0.5 mg) PO DAILY PRN 1 day metoprolol succinate ER 25 mg PO DAILY 90 days miconazole nitrate 2% 1 appl topical BID 2 weeks miscellaneous medical supply GRAB BAR 18 [facility] medical supply toilet safety frame nebulizers (AeroEclipse II Nebulizer) As directed nystatin 1 appl topical BID PRN 2 weeks oxycodone-acetaminophen 7.5-325 mg 1 tab PO Q8H PRN 30 days prednisone 40 mg (2 x 20 mg) PO DAILY 5 days [showerhead As directed] walker (Ultra-Light Rollator misc) As directed HPI HPI HS pt/ Ruarke/ shoulder surgery: Details: Marita is a 69-year-old female with past medical history of HTN, HLD, morbid ob esity, obstructive sleep apnea, aortic stenosis, left bundle branch block, cardiac catheterization with minimal CAD who now presents for preop cardiovascular clearance. Her last prior visit to our office was 01/02/2023. Today she reports she has been feeling well overall since her last visit. She is having issues with right shoulder discomfort due to a bone spur. She denies having any chest discomfort at rest or with activity. She does have some shortness of breath with activity which is not a new symptom for her. No shortness of breath at rest, PND, edema. She sleeps with 1 large pillow. No heart palpitations, lightheadedness, presyncope, syncope, falls. She does normal ADLs. Takes meds as directed. Significant other is present. [facility] Medical History CKD (chronic kidney disease) stage 3, GFR 30-59 ml/min Acute hypoxemic respiratory failure Sepsis Acute kidney injury Abdominal pain Morbid obesity Gallstones Common bile duct dilation Elevated TSH Hair loss Murmur Moderate persistent asthma Morbid obesity Mild recurrent major depression B12 deficiency Hair loss Right hip pain Dyslipidemia Foot pain, bilateral Lumbar degenerative disc disease History of vitamin D deficiency History of pernicious anemia Arthritis Back pain History of trigger finger History of left bundle branch block (LBBB) On beta mel at home Breast cancer Mild aortic stenosis Sleep apnea Constipation Dizziness Tinnitus Chronic pain HTN (hypertension) Asthma Depression Surgical History History of cholecystectomy History of cardiac cath Hx of bilateral cataract extraction History of total right knee replacement (TKR) History of total left knee replacement (TKR) History of dilation and curettage Hx of colonoscopy Hx of esophagogastroduodenoscopy History of lymph node dissection of left axilla S/P lumpectomy, left breast Family History Father Prostate cancer Hypertension Mother Skin cancer Dementia Diabetes Daughter Lupus Maternal Grandmother Diabetes Hypertension Maternal Grandfather No problems noted. Paternal Grandmother No problems noted. Paternal Grandfather Cancer Brother Prostate cancer Social History Household Members: Spouse and Family Household Members Other:: Graddaughter Housing: House Do you presently have visiting nurse or other home services: Yes Alcohol intake: never Patient Tobacco Use Status: Never used Tobacco e-Cigarette/Vaping Use: Never Used Second Hand Smoke Exposure: No Substance Use Type: Marijuana Advance Directives Date on File: 08/05/22 service: No Current occupational status: disabled Cognitive needs: Yes Hearing needs: No Vision needs: Yes Review of Systems Const All systems reviewed & are unremarkable except as noted in HPI and below ENT Denies dizziness Card Denies chest pain, Denies chest pain at rest, Denies chest pain with activity, Denies rapid heart rate, Denies pedal edema, Denies edema, Denies leg edema, Denies lightheadedness, Denies palpitations, Denies dyspnea, Denies dyspnea on exertion and Denies orthopnea Resp Denies cough, Denies dyspnea and Denies dyspnea on exertion GI Denies hematochezia and Denies change in stool character Musc Denies abnormal gait, Denies limited range of motion, Denies muscle cramps, Denies muscle weakness, Denies numbness, Denies radiating pain into limb, Denies stiffness and Denies tingling Neuro Denies abnormal gait, Denies dizziness, Denies numbness and Denies tingling Endo Denies palpitations Physical Exam Vital Signs: Last Vital Signs Pulse 67 11/15/24 08:21 BP 128/72 11/15/24 08:21 BMI result Body Mass Index 41.3 Const Other: morbidly obese General: cooperative, healthy appearing, comfortable and no acute distress Orientation/consciousness: patient oriented x3 Neck Neck: Yes normal visual inspection Resp Effort & Inspection: normal respiratory effort Auscultation: clear to auscultation bilaterally, no rales, no rhonchi and no wheezes Cardio Rate: regular rate Rhythm: regular rhythm Heart sounds: S1 normal heart sound present, S2 normal heart sound present, Murmur heart sound present (faint systolic) and no rubs Neuro General: patient oriented x3 Extrem General: Yes normal to inspection, No no pedal edema and No calf tenderness Psych Appearance: grossly normal Mental Status: mental status grossly normal Speech and movement: Normal speech and movement present Office Procedures EKG Details: Today, read by me, normal sinus rhythm, left bundle branch block, rate 67, QTC 424 milliseconds [id number], Complete Assessment & Plan Assessment & Plan (1) Abnormal nuclear stress test: Code(s): R94.39 - Abnormal result of other cardiovascular function study Category: Medical Plan: EKGs with finding of left bundle branch block, not new. She underwent a nuclear stress test on 11/13/2022 which showed possible anterior septal ischemia with apical nontransmural infarct. Cardiac catheterization was done 12/19/2022 showing LAD and RCA with only minimal luminal irregularities. Stress test false positive. Doing well at this time with no anginal sounding symptoms. EKG done today continues to shows normal sinus rhythm with left bundle branch block, rate 67. Will update echocardiogram to reassess EF and degree of . Continue on atorvastatin. (2) History of cardiac cath: Comment: 12/19/2022 showing left main normal, left circumflex normal, lad and RCA each with minimal luminal irregularities Code(s): Z98.890 - Other specified postprocedural states Category: Surgical Plan: As above (3) LBBB (left bundle branch block): Code(s): I44.7 - Left bundle-branch block, unspecified Category: Medical Plan: As above. (4) Nonrheumatic aortic (valve) stenosis: Code(s): I35.0 - Nonrheumatic aortic (valve) stenosis Category: Medical Plan: Echocardiogram 09/02/2023 shows EF 58%, mild aortic stenosis, mean gradient 12 mmHg, aortic valve area 1.6 centimeter sq, grade 1 diastolic dysfunction. Will update echo prior to her upcoming surgery. Plan to call her with results. (5) Preoperative cardiovascular examination: Code(s): Z01.810 - Encounter for preprocedural cardiovascular examination Category: Medical Plan: Preop for arthroscopic surgery right shoulder next month. Will be updating echo. If no significant change in EF or aortic valve then she can proceed with low cardiac risk. Will update this note once echo results are known. Call/consult Cardiology if needed. Plan Time spent on chart review, documentation, interview and assessment Orders: Orders CA echo transthoracic complete Today I35.0 - Nonrheumatic aortic (valve) stenosis, I44.7 - Left bundle-branch block, unspecified, Z01.810 - Encounter for preprocedural cardiovascular examination Coding Level of Care Code Est Pt Level 4 (28054) Complex EM visit Add On G2211 Diagnoses Abnormal nuclear stress test R94.39 History of cardiac cath Z98.890 LBBB (left bundle branch block) I44.7 Nonrheumatic aortic (valve) stenosis I35.0 Preoperative cardiovascular examination Z01.810 CPT Codes EKG - CPT: [id number], Complete ([id number]) Time Spent (min) 28
[2024-11-15 08:21] VITALS: BP 128/72; PULSE 67; BMI 41.3
--- OUTSIDE RECORDS SUMMARY | 2024-11-15 12:37 | XMS_ITS | Data Portability ---
Author Organization [facility] [place] - Formerly [facility] Address [address] [place] [phone] Care Team Providers Care Quality Lab Technician Name Role Phone HIM CCA OTHER AMBROSE JAMES Primary Care Provider [phone] Assessment Encounter Date Assessment Date Assessment LastModified by Organization Details LastModified Time 10/07/2024 10/07/2024 68 yo F with severe tinea corporis under both breasts (L>R) for past few days. Nystatin is not helping. Not typically wearing a bra. VS wnl. Rx for clotrimazole given, to use BID. Ensure area is clean and dry. Advised wearing bra to maintain barrier between skin and avoid excessive moisture in the area to allow for adequate healing. Precautions reviewed. [email or web address] Not available 10/07/2024 21:49:22 Plan of Treatment Reminders Order Date Submit Date Provider Last Modified By Organization Details Last Modified Time Details Appointments None recorded. Lab rapid flu (A+B) 2024 025 [email or web address] [facility], [address] [place] [address], [id number], 5 14:16:35 rapid SARS CoV 2 Ag, QL IA, respiratory specimen 2024 025 [email or web address] [facility], [address] [place] [address], [id number], 5 14:16:35 Referral None recorded. Procedures None recorded. Surgeries None recorded. Imaging None recorded. Medication Orders clotrimazol e 1 % topical cream 2023 024 [id number], [address] [facility] [facility], [place], [address], 4 20:06:27 ipratropium 0.5 mg-albutero l 3 mg (2.5 mg base)/3 mL nebulizatio n soln [email or web address]/Pharmacy #[id number], [address] [place], [address], 5 14:16:35 prednisone 10 mg tablet 2024 025 [facility]Pharmacy #[id number], [address] [place], [address], 5 14:18:56 prednisone 20 mg tablet [address]/Pharmacy #[id number], [address] [place], [address], 5 14:18:54 Patient TargetsNo targets recorded. Patient InstructionsNo instructions recorded. Reason for Referral None Reported. Results Created Date Observation Date Name Description Value Unit Range Abnormal Flag Note LastModifiedBy Organization Detail LastModifiedTime Result Notes None recorded. Medical Equipment None Reported. Allergies Allergen ID Allergen Name Allergen Category Reaction Reaction Severity Criticality Documentation Date Start Date Code Code System Note Provider Name and Address Organization Details Recorded Time 05569 oxycodone medicatio n Not available Not available Not available 10/07/2024 7804 RxNorm Not Available [facility] - production 4 16:21:18 10897 latex environme nt,medica tion Not available Not available Not available 10/07/2024 57330 91 RxNorm Not Available [facility] - production 4 16:21:18 Medications Name Sig Start Date Stop Date Status Note LastModified by Organization Details LastModified Time furosemide 40 mg tablet TAKE 1 TABLET BY MOUTH EVERY DAY IN THE MORNING active Not Available Not Available No t Available prednisone 10 mg tablet TAKE 4 TABLETS EVERY DAY BY MOUTH IN THE MORNING FOR 4 DAYS. active Not Available Not Available Not Available atorvastatin 20 mg tablet TAKE 1 TABLET BY MOUTH EVERY DAY active Not Available Not Available No t Available ipratropium 0.5 mg-albuterol 3 mg (2.5 mg base)/3 mL nebulization soln Inhale 3 mL by nebulizatio n route. 2024 active Not Available Not Available Not Avai lable albuterol sulfate 2.5 mg/3 mL (0.083 %) solution for nebulization INHALE 2.5 MG (3 ML) BY NEBULIZER EVERY 6 HOURS NEEDED FOR BRONCHOSPAS M FOR 30 DAYS active Not Available Not Available No t Available azithromycin 250 mg tablet TAKE 2 TABLETS BY MOUTH TODAY, THEN TAKE 1 TABLET DAILY FOR 4 DAYS DIRECTED active Not Available Not Available No t Available prednisone 20 mg tablet Take 2 tablets by oral route. 2024 active Not Available Not Available Not Avai lable cyanocobalam in (vit B-12) 1,000 mcg tablet TAKE 1 TABLET BY MOUTH EVERY DAY active Not Available Not Available No t Available lorazepam 0.5 mg tablet TAKE 2 TABLETS BY MOUTH DAILY NEEDED FOR ANXIETY FOR 1 DAY active Not Available Not Available No t Available nystatin 100,000 unit/gram topical cream APPLY 1 APPLICATION TOPICALLY 2 TIMES A DAY NEEDED FOR RASH FOR 2 WEEKS active Not Available Not Available Not Available indomethacin 50 mg capsule TAKE 1 CAPSULE ORALLY 3 TIMES A DAY FOR 5 DAYS ADMINISTER WITH FOOD OR MILK active Not Available Not Available No t Available furosemide 20 mg tablet TAKE 1 TABLET BY MOUTH DAILY active Not Available Not Available Not Available metoprolol succinate ER 25 mg tablet,exten ded release 24 hr TAKE 1 TABLET BY MOUTH EVERY DAY active Not Available Not Available No t Available oxycodone-ac etaminophen 7.5 mg-325 mg tablet TAKE 1 TABLET ORALLY EVERY 8 HOURS NEEDED FOR PAIN FOR 30 DAYS active Not Available Not Available No t Available clotrimazole 1 % topical cream APPLY TO THE AFFECTED AND SURROUNDING AREAS OF SKIN BY TOPICAL ROUTE 2 TIMES PER DAY IN THE MORNING AND EVENING active Not Available Not Available No t Available escitalopram 20 mg tablet TAKE 1 TABLET BY MOUTH EVERYDAY AT BEDTIME active Not Available Not Available No t Available Advair HFA 230 mcg-21 mcg/actuatio n aerosol inhaler TAKE 2 PUFFS INHALED EVERY 12 HOURS FOR 30 DAYS active Not Available Not Available No t Available colchicine 0.6 mg capsule TAKE 1 CAPSULE ORALLY 2 TIMES A DAY FOR 2 DAYS active Not Available Not Available N ot Available Vitals Date Recorded Oxygen saturation Oxygen saturation in Arterial blood by Pulse oximetry Body temperature Heart rate Respiratory rate Systolic blood pressure Diastolic blood pressure Provider Name and Address Organization Details Last Updated DateTime 4 97 % 97 % 98.1 [degF] 84 /min 18 /min 140 mm[Hg] 82 mm[Hg] Not Available [facility] - production 4 20:04:20 Date Recorded Body weight Respiratory rate Heart rate Body height Oxygen saturation Oxygen saturation in Arterial blood by Pulse oximetry Body temperature Systolic blood pressure Diastolic blood pressure Provider Name and Address Organization Details Last Updated DateTime 5 49918.3 2 g 18 /min 68 /min 147.32 cm 96 % 96 % 98 [degF] 140 mm[Hg] 85 mm[Hg] Not Available [facility] - production 5 14:10:41 Social History None recorded. Functional Status None recorded. Mental Status None recorded. Family History Nothing Reported. Medical History No medical history recorded. Gynecological HistoryNo gynecological history recorded. Obstetrics History GPAL:G 0 P 0 0 0 0 Past Encounters Encounter ID Performer Location Encounter Start Date Encounter Closed Date Diagnosis/Indication Diagnosis SNOMED-CT Code Diagnosis ICD10 Code Diagnosis Note [id number] MAU RUFFIN MD [facility] - [facility] [address] [place] [phone] 10/07/2024 20:04:14 10/07/2024 23:05:27 Tinea corporis 21757951 B35.4 [id number] [facility] [address] [place] [phone] 11/02/2024 14:06:32 11/02/2024 22:25:51 Upper respiratory infection 46926827 J06.9 Evaluation in the field was performed by my heel attacher wood colleague, as noted above, I provided real-time direction and supervisio n for this visit. 68yo F PMHx asthma p/w 2 weeks URI symptoms including cough, rhinorrhea , and increased wheezing without fevers, chest pain. Improved with inhalers. Reports she usually receives antibiotic s every year for this. Denies hx tobacco use. On heel attacher wood eval VS sat 96% RA normal RR. Exam with faint wheezing that resolved after DuoNeb, no increased WOB. Rapid COVID and flu negative. Suspect viral URI triggering asthma exacerbati on. Will treat with prednisone burst. Unlikely PNA given lung exam and lack of fever, presentati on less c/w PE. Red flag reviewed. PCP: consider calling pt in 2-3 days to ensure improving symptoms We discussed the diagnostic uncertaint y of home visits and the risk associated with this. In this case, the patient and I felt this to be an acceptable and reasonable amount of risk given the benefit of avoiding an ED visit. We discussed the need to seek care urgently/e mergently in the setting of any new or worsening serious symptoms, shortness of breath, cough, chest pain, fever. Health Concerns Section Related Observation LastModified by Organization Detai ls LastModified Time None Recorded Concern Status LastModified by Organization Details LastModified Time None Recorded Advance Directives Directive None Recorded Payers Encounter Date Sequence Insurance Name Policy Number Policy Taylor Covered Member ID Taylor Member ID Guarantor Name 10/07/2024 1 [facility] - DOS ON OR AFTER 2023 - DUAL ELIGIBLE - LONG TERM OPTIONS AND ONE CARE (MEDICARE REPLACEMENT/ADV ANTAGE - HMO) Marita Murray [id number] Marita Murray 11/02/2024 1 [facility] - DOS ON OR AFTER 2023 - DUAL ELIGIBLE - LONG TERM OPTIONS AND ONE CARE (MEDICARE REPLACEMENT/ADV ANTAGE - HMO) Marita Murray [id number] Marita Murray Notes Date Note Type Note Provider Name and Address Organization Details Recorded Time 10/07/2024 text/html [facility] Nurse Triage Notes (Safia Norton - LAURA): Reason For Request: Pt reporting severe rash underneath both breast, historically 1 or 2 times a year but noting this particular case of it is more severe Chief Complaints: Rash PMH: Asthma, Arrhythmias (e.g., Atrial Fibrillation), Cancer Comments: 68 year old female with PMH: Breast cancer w/ lymphectomy, asthma, irregular heartbeatc/o rash under both breasts, PCP prescribed Nystatin cream but not helpingRequest for female medic if possible, informed member call back regarding this request.Yahaira SANCHEZ .................... .................... .................... .................... .................... .................... .................... . [employer] Note From Zaki Vega: Dispatched to the call address for the female with a rash. Pt states she has had a rash under both breasts for a few days now. She does get these rashes every so often but they are usually treated with nystatin cream however it has been non-effective this time. She states the left side is the worst rash she has ever had there, stating it is itchy and painful. Pt denies difficulty breathing/SoB, chest pain, fevers or any other complaints at this time.Pt was found opening door, in no obvious distress, CAOx4, airway open and patent, breathing non labored, able to speak in full sentences, -JVD, -HEENT, skin PWD with good turgor, abd soft non tender/distended, pupils PERRL, mucous membranes pink and moist, +CMSx4, -swelling/edema. lungs CTA, afebrile. C consulted. Script called into preferred pharmacy. Red flags discussed. ALL times are approx. .................... .................... .................... .................... .................... .................... .................... . [facility] Consulted: Mau Ruffin .................... .................... .................... .................... .................... .................... .................... . Disposition: Fulfilled MAU RUFFIN MD [address] [facility], [place], [phone], [employer] 10/07/2024 21:49:34 11/02/2024 text/html [facility] Nurse Triage Notes (Erika Noel - RN): Reason For Request: Patient feels weak, and general illness cold like symptoms, congestion in chest, Coughing problems. Chief Complaints: Cough, Weakness PMH: Asthma, Arrhythmias (e.g., Atrial Fibrillation), Cancer, Sleep Apnea PMH Reviewed at 11/02/2024: Allergies Reviewed at 11/02/2024:10 Comments: Patient reports cold sx's x2 weeks with no improvement. c/o nasal and chest congestion. Non-productive cough. Denies fever/chills. Patient using inhaler as needed and Robitussin DM with no relief. Had swabs done for Flu/Covid/Rsv by PCP, no results received yet. Intermittent shortness of breath. Speaking full sentences with resp difficulty. Education provided on the response time and the member was advised to monitor reported s/s and seek emergency treatment if needed. Software Engineer Web Services Organization Information for Yamile [facility] [employer] [facility] Legal Name: [facility]? Address: [address] [place] [address], Animal Treatment Investigator: Constantin Machado MD CLIA No.: [id number] Software Engineer [employer] POC Test Results from Luis [facility] Rapid influenza antigen (14:11:38) Flu: - Rapid COVID antigen (14:11:39) COVID: - .................... .................... .................... .................... .................... .................... .................... . Software [employer] Note From Yamile Cary: Sent to a call for a pt complaining of URI symptoms. SC8 arrives on scene, pt is alert and oriented, airway is patent. Pt has history of Asthma. Pt allergies: Oxycodone, Latex; Pt complains of sob x 2 weeks, runny nose with clear mucus, productive cough with clear phlegm x 1.5wks, congestion/chest tightness x 1 week, cough changing to green phlegm x 3 days, and ear pain today. Pt denies sloan, sinus pain, n/v/d, abd pain, fever, chills, or loc. Pt states she usually gest sick every year around this time. Pt states PCP often prescribes prednisone and antibiotics. Pt states she contacted PCP last week, who sent her lab orders for covid/flu/RSV tests which were done on Friday(hasn't received results). BP:140/85, P:68, RR:18, SpO2:96% RA, T:98.0; Head: unremarkable; Lung sounds: bilateral rhonchi/wheezing; Abdomen: soft, non-tender, no distention; Back: unremarkable; Extremities: unremarkable; Skin: pink, warm, dry; Rapid covid/flu test: neg; Duo neb administered; Lung sounds: clear bialterally; [facility] consulted and orders Prednisone 40mg PO. [facility] [place] script to pt's pharmacy. Prednisone 40mg PO administered. Pt advised to use symptomatic treatment as outlined. Red flags discussed. Pt has no further questions. .................... .................... .................... .................... .................... .................... .................... . [facility] Consulted: Sanam Russell .................... .................... .................... .................... .................... .................... .................... . Disposition: Fulfilled Sanam Russell MD [address] [facility] [facility], [place], [phone], ELENITA BRITTANY PEREZ 11/02/2024 16:46:28 OBGyn Episode No OBEpisode recorded.
--- OUTSIDE RECORDS SUMMARY | 2024-11-15 12:37 | XMS_ITS | Patient Health Record ---
Author Organization [facility] Address [address] [place] [address] Care Team Providers Care Regional Engineer Name Role Phone Adrianna Sharp Primary Care Provider Bin Salinas Unavailable [phone] REASON FOR REFERRAL No Information SOCIAL HISTORY Sex Assigned At : Social History Observation Description Sex Assigned At Unknown PROBLEMS Problem Type ICD Code Onset Dates Problem Status W/U Status Risk SNOMED Code Notes Problem Gallstones (K80.20) Active confirmed Gallstones (099040581) PLAN OF TREATMENT No Information Insurance Providers Payer Name Payer Address Payer Phone Subscriber Number Group Number Insured Name Patient Relationship to Insured Coverage Start Date Coverage End Date MEDICARE OF [place] [address] [place] [address] [id number] ISMAEL JUÁREZ Self - patient is the insured MEDICAID OF [facility] [address] [place] [address] [id number] ISMAEL JUÁREZ Self - patient is the insured MEDICARE OF [place] [address] [place] [address] [id number] ISMAEL JUÁREZ Self - patient is the insured [facility] [address] [place] [address] [id number] ISMAEL JUÁREZ Self - patient is the insured 3 MEDICAL (GENERAL) HISTORY Medical History History ICD Code colon and egd 11-30-2009 history of anemia gastric polyp pernicious anemia
--- OUTSIDE RECORDS SUMMARY | 2024-11-15 12:37 | XMS_ITS | Clinical Summary ---
Author Organization [facility] Address [address] [phone] Phone Care Team Providers Care Technical Illustrations Map Inker Name Role Phone Adrianna Sharp MD Primary Care Provider [phone] Allergies Active Allergy Reactions Criticality Noted Date Comments Latex Hives Medium 04/29/2023 Other reaction(s): rash at site it touches Oxycodone Itching Low 05/05/2023 Generalized itching of the back Medications ALPRAZolam (XANAX) 0.5 MG tablet TAKE 1 TABLET BY MOUTH DAILY FOR 1 DAY. TAKE 30 MINUTES BEFORE DENTAL PROCEDURE 3 Active atorvastatin (LIPITOR) 20 MG tablet 20 mg 3 Active cyanocobalamin (VITAMIN B-12) 1000 MCG tablet Take 1,000 mcg by mouth in the morning. 3 Active Docusate Sodium (DSS) 100 MG capsule Take 100 mg by mouth 1 (one) time each day if needed 3 Active escitalopram (LEXAPRO) 10 MG tablet Take 10 mg by mouth in the morning. 3 Active ferrous sulfate 324 (65 Fe) MG EC tablet Take 324 mg by mouth in the morning. 3 Active fluticasone-manuel meterol (Advair HFA) 230-21 MCG/ACT inhaler 3 Active furosemide (LASIX) 40 MG tablet Take 40 mg by mouth in the morning. 3 Active guaiFENesin (MUCINEX) 600 MG 12 hr tablet Take 600 mg by mouth in the morning and 600 mg in the evening. 3 Active lisinopril 2.5 MG tablet Take 2.5 mg by mouth 3 Active metoprolol succinate XL (TOPROL XL) 25 MG 24 hr tablet Take 25 mg by mouth in the morning. 3 Active oxyCODONE-aceta minophen (PERCOCET) 7.5-325 MG per tablet 1 tablet every 8 (eight) hours if needed 4 Active Active Problems Problem Noted Date Diagnosed Date Hypertension 09/28/2024 Chronic kidney disease, stage 2 (mild) 3 Acute kidney failure 07/31/2023 Gallstone 07/30/2023 07/30/2023 Severe obesity 07/30/2023 07/30/2023 Abscess of liver 05/24/2023 07/30/2023 Acute gastric ulcer without hemorrhage or perfor ation 05/06/2023 07/30/2023 Common bile duct calculus 04/28/20232022 Malignant tumor of breast 11/26/20122022 Encounters Date Type Department Care Team Description 09/28/2024 10:45 AM EST Office Visit [facility] [address] [place] [phone] Dayanara Marcus ARNP Chronic kidney disease, stage 2 (mild) (Primary Dx); Hypertension 09/06/2024 Documentation Only [facility] [address] [address] Ramila Mota from Last 3 Months Family History Medical History Relation Comments Cancer Father Cancer Mother Diabetes Mother Hypertension Mother Relation Status Comments Father Mother Social History Tobacco Use Types Packs/Day Years Used Date Smoking Tobacco: Never Smokeless Tobacco: Never Tobacco Cessation:Counseling Given: Not Answered Alcohol Use Standard Drinks/Week Comments Never 0 (1 standard drink = 0.6 oz pur e alcohol) Comments Unknown Sex and Gender Information Value Date Recorded Sex Assigned at Not on file Legal Sex Female 2:39 PM EDT Gender Identity Not on file Sexual Orientation Not on file Last Filed Vital Signs Vital Sign Reading Time Taken Comments Blood Pressure 128/80 09/28/2024 10:41 AM EST Pulse 62 09/28/2024 10:41 AM EST Temperature - - Respiratory Rate - - Oxygen Saturation 97% 09/28/2024 10:41 AM EST Inhaled Oxygen Concentration - - Weight 97.1 kg (214 lb) 09/28/2024 10:41 AM EST Height 149.9 cm (4' 11 ) 07/31/2023 2:37 PM EDT Body Mass Index 43.22 07/31/2023 2:37 PM EDT Plan of Treatment Upcoming Encounters Date Type Department Care Team (Late st Contact Info) Description 09/28/2025 11:00 AM EST Office Visit [facility] [address] [phone] Dayanara Marcus ARNP [address] [address] Health Maintenance Due Date Last Done Comments Breast Cancer Screening 1955 Pneumococcal Vaccine: 65+ Ye ars (1 of 2 - PCV) 1961 Colorectal Cancer Screening: Annual FOBT 2002 Colorectal Cancer Screening: Colonoscopy 2002 Colorectal Cancer Screening: Sigmoidoscopy 2002 Influenza Vaccine (#1) 2024 Hepatitis B Vaccine Aged Out No longe r eligible based on patient's age to complete this topic Procedures Procedure Name Priority Date/Time Associated Diagnosis Comments EXT RESULT ENTRY Routine 09/07/2024 from Last 3 Months Results * EXT RESULT ENTRY (09/07/2024) WBC 7.1 3.3 - 10.0 10*3/ML Red Blood Cell Count 5.14 Hemoglobin 12.7 12.0 - 16.0 Hematocrit 40.4 36.0 - 46.0 Platelets 230 150 - 399 10*3/UL Iron 68 UG/DL Iron Saturation (TSat) 19 % TIBC 356 ug/dL Ferritin 18.0 9.0 - 150.0 NG/ML Sodium 142 137 - 147 Potassium 4.3 3.4 - 5.5 Carbon Dioxide 24 mmol/L Anion Gap 18 <=30 MMOL/L BUN 16 4 - 21 mg/dL Creatinine 0.90 0.50 - 1.10 mg/dL Calcium 10.5 8.7 - 10.7 mg/dL eGFR Non-Afr Marshallese >60 Creatinine, Urine Random 232.56 mg/dL Alb/Creat Ratio, Ur 2.1 mg/g Creat Microalbumin Urine Random (External Result Entry) 5.0 09/07/2024 Historical Provider LAB BLOOD ORDERABLES Lisa nelson Result from Last 3 Months Insurance ([id number]) ([id number]) Care Teams Technical Illustrations Map Inker Relationship Specialty Start Date End Date Adrianna Sharp MD [address] [facility] [address] [place] [address] PCP - General Internal Medicine 06/25/23
--- OUTSIDE RECORDS SUMMARY | 2024-11-15 12:38 | XMS_ITS | Continuity of Care Document ---
Author Organization [employer] [facility], [place] - [facility] Address [address] [place] [id number] Care Team Providers Care Cellophaner Name Role Phone HIM CCA OTHER AMBROSE JAMES Primary Care Provider Assessment No assessment recorded. Plan of Treatment Reminders Order Date Submit Date Provider Last Modified By Organization Details Last Modified Time Details Appointments None recorded. Lab rapid flu (A+B) [address], [address] [place] [address], [id number], 5 14:16:35 rapid SARS CoV 2 Ag, QL IA, respiratory specimen [address], [address] [place] [address], [id number], 5 14:16:35 Referral None recorded. Procedures None recorded. Surgeries None recorded. Imaging None recorded. Medication Orders ipratropium 0.5 mg-albutero l 3 mg (2.5 mg base)/3 mL nebulizatio n soln [address]/Pharmacy #[id number], [address] [place], [address], 5 14:16:35 prednisone 10 mg tablet 2024 025 [facility]/Pharmacy #[id number], [address] [place], [address], 5 14:18:56 prednisone 20 mg tablet [address]/Pharmacy #[id number], [address] [place], [address], 5 14:18:54 Patient TargetsNo targets recorded. Patient [...] Name and Address Organization Details Recorded Time 65133 oxycodone medicatio n Not available Not available Not available 10/07/2024 7804 RxNorm Not Available [facility] - production 4 16:21:18 24640 latex environme nt,medica tion Not available Not available Not available 10/07/2024 16318 91 RxNorm Not Available [facility] - production [...] Available N ot Available Vitals Date Recorded Body weight Respiratory rate Heart rate Body height Oxygen saturation Oxygen saturation in Arterial blood by Pulse oximetry Body temperature Systolic blood pressure Diastolic blood pressure Provider Name and Address Organization Details Last Updated DateTime 5 07179.3 2 g 18 /min 68 /min 147.32 cm 96 % 96 % 98 [degF] 140 mm[Hg] 85 mm[Hg] Not Available [facility] - production 5 14:10:41 Social History None recorded. Functional Status None recorded. Mental Status None recorded. Family History Nothing Reported. Medical History No medical history recorded. Gynecological HistoryNo gynecological history recorded. Obstetrics History GPAL:G 0 P 0 0 0 0 Past Encounters Encounter ID Performer Location Encounter Start Date Encounter Closed Date Diagnosis/Indication Diagnosis SNOMED-CT Code Diagnosis ICD10 Code Diagnosis Note [id number] MAU RUFFIN MD [facility] - [facility] [address] [place] [phone] 10/07/2024 20:04:14 10/07/2024 23:05:27 Tinea corporis 27142528 B35.4 [id number] Sanam Russell MD Main - [address] [phone] 11/02/2024 14:06:32 11/02/2024 22:25:51 Upper respiratory infection 34148839 J06.9 Evaluation in the field was performed by my crumb packer colleague, as noted above, I provided real-time direction and supervisio n for this visit. 68yo F PMHx asthma p/w 2 weeks URI symptoms including cough, rhinorrhea , and increased wheezing without fevers, chest pain. Improved with inhalers. Reports she usually receives antibiotic s every year for this. Denies hx tobacco use. On crumb packer eval VS sat 96% RA normal RR. [...] by Organization Details LastModified Time None Recorded Payers Encounter Date Sequence Insurance Name Policy Number Policy Taylor Covered Member ID Taylor Member ID Guarantor Name 11/02/2024 1 [facility] - DOS ON OR AFTER 2023 - DUAL ELIGIBLE - [employer] OPTIONS AND ONE CARE (MEDICARE REPLACEMENT/ADV ANTAGE - HMO) Marita Murray [id number] Marita Murray Notes Date Note Type Note Provider Name and Address Organization Details Recorded Time 11/02/2024 text/html CRC Nurse Triage Notes (Erika [...] s/s and seek emergency treatment if needed. Chain Puller Organization Information for [facility] Business Legal Name: [employer]? Address: [address] [place] [address], Juvenile Officer: Constantin Machado MD [facility] No.: [id number] Chain Puller POC Test Results from [facility] Rapid influenza antigen (14:11:38) Flu: - Rapid COVID antigen (14:11:39) COVID: - .................. .................. .................. .................. .................. .................. .................. ............... Chain Puller Note From Yamile Cayr: Sent to a call for a pt [...] Duo neb administered; Lung sounds: clear bialterally; [facility] consulted and orders Prednisone 40mg PO. [facility] sends script to pt's pharmacy. Prednisone 40mg PO administered. Pt advised to use symptomatic treatment as outlined. Red flags discussed. Pt has no further questions. .................. .................. .................. .................. .................. .................. .................. ............... [facility] Consulted: Sanam Russell .................. .................. .................. .................. .................. .................. .................. ............... Disposition: Fulfilled Sanam Russell MD [address], [place], [address], ELENITA - Automation AlleyBRITTANY JACKSON 11/02/2024 16:46:28 OBGyn Episode No OBEpisode recorded.
== END 2024-11-15 08:50 | disposition home or self-care (01) ==
PROVIDERS: PCP Internal Medicine; Visit Provider Nurse Practitioner Family
DX: R94.39 Abnormal result of other cardiovascular function study (principal); Z98.890 Other specified postprocedural states; I44.7 Left bundle-branch block, unspecified; I35.0 Nonrheumatic aortic (valve) stenosis; Z01.810 Encounter for preprocedural cardiovascular examination
CPT/HCPCS: 93010; 99214; G2211

== ENCOUNTER → 2024-11-15 08:16 | Outpatient (BNVA) | payer OTHER, SELFPAY | PROVIDERS: PCP Internal Medicine; Visit Provider Nurse Practitioner Family | DX: Z01.810 Encounter for preprocedural cardiovascular examination (principal); I10 Essential (primary) hypertension; I44.7 Left bundle-branch block, unspecified; I35.0 Nonrheumatic aortic (valve) stenosis; E66.01 Morbid (severe) obesity due to excess calories; R94.39 Abnormal result of other cardiovascular function study; Z68.41 Body mass index [BMI] 40.0-44.9, adult; Z98.890 Other specified postprocedural states | CPT/HCPCS: 93005; 99212 ==

== ENCOUNTER → 2024-11-17 10:41 | Outpatient (REF) | payer OTHER, SELFPAY ==
--- OUTSIDE RECORDS SUMMARY | 2024-11-17 12:47 | XMS_ITS | Clinical Summary ---
Author Organization [facility] Address [address] [address] Phone Care Team Providers Care Frozen Foods Manager Name Role Phone Adrianna Sharp MD Primary Care Provider [phone] Allergies Active Allergy Reactions Criticality Noted Date [...] Office Visit [facility] [address] [place] [phone] Dayanara Marcus ARNP Chronic kidney disease, stage 2 (mild) (Primary Dx); Hypertension 09/06/2024 Documentation Only [facility] [address] [address] Ramila Mota from Last 3 Months Family [...] Visit [facility].CLukasz [address] [address] Dayanara Marcus ARNP [address] [address] Health Maintenance Due Date Last [...] 10.5 8.7 - 10.7 mg/dL eGFR Non-Afr Tanzanian >60 Creatinine, Urine Random 232.56 mg/dL Alb/Creat Ratio, Ur 2.1 mg/g Creat Microalbumin Urine Random (External Result Entry) 5.0 09/07/2024 Historical Provider LAB BLOOD ORDERABLES Lisa nelson Result from Last 3 Months Insurance ([id number]) ([id number]) Care Teams Frozen Foods Manager Relationship Specialty Start Date End Date Adrianna Sharp MD [address] [place] [address] PCP - General Internal Medicine 06/25/23
--- OUTSIDE RECORDS SUMMARY | 2024-11-17 12:48 | XMS_ITS | Encounter Summary ---
Author Organization [facility] Address [address] [place] [address] Care Team Providers Care Track Superintendent Name Role Phone Pcp, No Primary Care Provider Unavailabl e Adrianna Sharp MD Primary Care Provider [phone] Encounter Details Date Type Department Care Team (Late st Contact Info) Description 04/28/2023 Scanned Document [facility] Emergency Department [address] [place] [address] Provider, Generic Social History Tobacco Use Types Packs/Day Years Used Date Smoking Tobacco: Never Smokeless Tobacco: Never AUDIT-C Answer Date Recorded Q1: How often do you have a drink containing alcohol? Never 04/28/2023 Q2: How many drinks containi ng alcohol do you have on a typical day when you are drinking? Patient does not drink Q3: How often do you have si x or more drinks on one occasion? Never 04/28/2023 Overall Financial Resource Strain (CARDIA) Answe r Date Recorded How hard is it for you to pa y for the very basics like food, housing, medical care, and heating? Not hard at all 04/29/2023 Hunger Vital Sign Answer Date Recorded Within the past 12 months, y ou worried that your food would run out before you got the money to buy more. Never true 04/29/20 23 Within the past 12 months, t he food you bought just didn't last and you didn't have money to get more. Never true 04/29/2023 PRAPARE - Transportation Answer Date Re corded In the past 12 months, has l ack of transportation kept you from medical appointments or from getting medications? No 04/19 In the past 12 months, has l ack of transportation kept you from meetings, work, or from getting things needed for daily living? No 04/29/2023 Housing Stability Vital Sign Answer Herbert e Recorded In the last 12 months, was t here a time when you were not able to pay the mortgage or rent on time? No 04/29/2023 In the last 12 months, how many places have you lived? 1 04/29/2023 In the last 12 months, was t here a time when you did not have a steady place to sleep or slept in a intermediate (including now)? No 04/29/2023 Sex and Gender Information Value Date Recorded Sex Assigned at Female 04/28/2023 8:47 PM EDT Gender Identity Female 04/28/2023 8:47 PM EDT Sexual Orientation Heterosexual (straight) 04/28 8:47 PM EDT COVID-19 Exposure Response Date Recorded In the last 10 days, have yo u been in contact with someone who was confirmed or suspected to have Coronavirus/COVID-19? No / Unsure 04/28/2023 8:50 PM EDT documented as of this encounter Plan of Treatment Not on file documented as of this encounter Visit Diagnoses Not on filedocumented in this encounter Additional Health Concerns Infection Onset Date Last Indicated Resolved Time R/O Respiratory Disease 05/01/2023 05/01/202304/19 12:42 PM EDT R/O Gastrointestinal Infection 05/26/2023 05/27/2023 05/28/2023 12:24 PM EDT R/O C. Difficile 05/26/2023 05/27/2023 05/28/2023 12:24 PM EDT COVID-19 Comment:05/29/2023 (+) 05/30/2023 05/30/2023 06/19/2023 11:42 P M EDT documented as of this encounter Care Teams Track Superintendent Relationship Specialty Start Date End Date Pcp, No [address] [place] [address] PCP - General 04/28/23 04/28/23 Adrianna Sharp MD [address] [place] [address] PCP - General Family Medicine 04/29/23 documented as of this encounter
--- OUTSIDE RECORDS SUMMARY | 2024-11-17 12:48 | XMS_ITS | Clinical Summary ---
Author Organization [facility] Address [address] [place] [address] Care Team Providers Care Security Orderly Name Role Phone Adrianna Sharp MD Primary Care Provider [phone] Allergies Active Allergy Reactions Criticality Noted Date Comments Latex Hives Medium 04/29/2023 Oxycodone Itching Low 05/05/2023 Generalized itching of the back Medications Medication Sig Dispensed Refills Start Date End Date Status metoPROLOL SUCCINATE (TOPROL-XL) 25 MG 24 hr tablet Take 1 tablet (25 mg total) by mouth daily. 02/09/2023 Active Advair HFA 230-21 MCG/ACT inhaler 05/02/2023 Active ferrous sulfate 324 (65 Fe) MG Tablet Delayed Response Take 1 tablet (324 mg total) by mouth daily. 04/06/2023 Active escitalopram (LEXAPRO) 10 MG tablet Take 1 tablet (10 mg total) by mouth daily. 04/20/2023 Active ALPRAZolam (XANAX) 0.5 MG tablet TAKE 1 TABLET BY MOUTH DAILY FOR 1 DAY. TAKE 30 MINUTES BEFORE DENTAL PROCEDURE 04/14/2023 Active atorvastatin (LIPITOR) 20 MG tablet 1 tablet (20 mg total). 12/19/2022 Active furosemide (LASIX) 40 MG tabletIndications:Ac naknek gastric ulcer without hemorrhage or perforation Take 1 tablet (40 mg total) by mouth daily. Do not start before May 07, 2023. 30 tablet 05/07/2023 Active cholecalciferol (CHOLECALCIFEROL) 25 MCG (1000 UT) tabletIndications:Ac naknek gastric ulcer without hemorrhage or perforation Take 1 tablet (1,000 Units total) by mouth daily. Do not start before May 07, 2023. 30 tablet 05/07/2023 Active cyanocobalamin (VITAMIN B12) 1000 MCG tabletIndications:Ac naknek gastric ulcer without hemorrhage or perforation Take 1 tablet (1,000 mcg total) by mouth daily. Do not start before May 07, 2023. 30 tablet 05/07/2023 Active PANTOprazole (PROTONIX) 40 MG EC tabletIndications:Ac naknek gastric ulcer without hemorrhage or perforation Take 1 tablet (40 mg total) by mouth 2 times a day. 60 tablet 05/06/2023 Active sucralfate (CARAFATE) 1 GM/10ML suspensionIndication s:Acute gastric ulcer without hemorrhage or perforation Take 10 mL (1 g total) by mouth 4 (four) times a day before meals and nightly. On an empty stomach. 1200 mL 05/06/2023 Active benzonatate (TESSALON) 100 MG capsuleIndications:C OVID Take 1 capsule (100 mg total) by mouth 3 (three) times a day as needed for cough. 20 capsule 06/03/2023 Active guaiFENesin (MUCINEX) 600 MG 12 hr tabletIndications:CO VID Take 1 tablet (600 mg total) by mouth 2 (two) times a day. 14 tablet 06/03/2023 Active sulfamethoxazole-tri methoprim (BACTRIM DS,SEPTRA DS) 800-160 MG per tabletIndications:Li filippo abscess Take 1 tablet by mouth every 12 (twelve) hours around the clock. 42 tablet 06/03/2023 Active Active Problems Problem Noted Date Diagnosed Date Liver abscess 05/24/2023 Acute gastric ulcer without hemorrhage or perfor ation 05/06/2023 Choledocholithiasis 04/28/2023 Family History Medical History Relation Name Comments Lupus Daughter Diabetes Father Prostate cancer Father Dementia Mother Diabetes Mother Skin cancer Mother Relation Name Status Comments Daughter Father Mother Social History Tobacco Use Types Packs/Day Years Used Date Smoking Tobacco: Never Smokeless Tobacco: Never Tobacco Cessation:Counseling Given: Not Answered AUDIT-C Answer Date Recorded Q1: How often do you have a drink containing alcohol? Never 05/24/2023 Q2: How many drinks containi ng alcohol do you have on a typical day when you are drinking? Patient does not drink Q3: How often do you have si x or more drinks on one occasion? Never 05/24/2023 Overall Financial Resource Strain (CARDIA) Answe r Date Recorded How hard is it for you to pa y for the very basics like food, housing, medical care, and heating? Not hard at all 05/25/2023 Hunger Vital Sign Answer Date Recorded Within the past 12 months, y ou worried that your food would run out before you got the money to buy more. Never true 05/25/20 23 Within the past 12 months, t he food you bought just didn't last and you didn't have money to get more. Never true 05/25/2023 PRAPARE - Transportation Answer Date Re corded In the past 12 months, has l ack of transportation kept you from medical appointments or from getting medications? No 03/2023 In the past 12 months, has l ack of transportation kept you from meetings, work, or from getting things needed for daily living? No 05/25/2023 Housing Stability Vital Sign Answer Herbert e Recorded In the last 12 months, was t here a time when you were not able to pay the mortgage or rent on time? No 05/25/2023 In the last 12 months, how many places have you lived? 1 05/25/2023 In the last 12 months, was t here a time when you did not have a steady place to sleep or slept in a chcf (including now)? No 05/25/2023 Sex and Gender Information Value Date Recorded Sex Assigned at Female 04/28/2023 8:47 PM EDT Gender Identity Female 04/28/2023 8:47 PM EDT Sexual Orientation Heterosexual (straight) 04/28 8:47 PM EDT Last Filed Vital Signs Vital Sign Reading Time Taken Comments Blood Pressure 133/61 06/03/2023 8:23 AM EDT Pulse 59 06/03/2023 8:23 AM EDT Temperature 36.8 ??C (98.2 ??F) 06/03/2023 8:23 AM ED T Respiratory Rate 18 06/03/2023 8:23 AM EDT Oxygen Saturation 98% 06/03/2023 8:23 AM EDT Inhaled Oxygen Concentration - - Weight 97.3 kg (214 lb 8.1 oz) 05/05/2023 5:00 A M EDT Height 149.9 cm (4' 11 ) 04/28/2023 7:49 PM EDT Body Mass Index 43.33 04/28/2023 7:49 PM EDT Plan of Treatment Health Maintenance Due Date Last Done Comments Hepatitis C Virus Screening 1953 DTaP/Tdap/Td Vaccines (1 - Tdap) 1972 Mammogram 1993 Colonoscopy 1998 Pneumococcal Vaccines 50+ (1 of 1 - PCV) 2003 Zoster (Shingles) Vaccine (1 of 2) 2003 RSV Vaccine 60 years and old er and Patients (1 - Risk 60-74 years 1-dose series) 2013 DXA Bone Density (Females,Ag es 65 and older) 2018 Influenza Vaccine 05/20/2024 COVID-19 Vaccine ( - 2023-2 5 season) 2024 Hepatitis B Vaccines Aged Out No long er eligible based on patient's age to complete this topic Medical Devices Explanted Type Area Geometrician Device Identifier Shelf Expiration Date Model / Serial / Lot [id number] Stent Pancreatic 5fr 5cm Pigtail Curve Radopq Push Cath - [id number] Implanted:Qty: 1 on 04/29/2023 by Bryan Chester MD at [facility] Explanted:Qty: 1 on 05/06/2023 by Kristyn Paez MD at [facility] Stent N/A: Bile Duct [employer] [id number] 12/30/2025 [id number] / / [id number] Advance Directives * Full Code (Latest Code Status on File) Date Activated Date Inactivated Comments 05/24/2023 3:08 PM Question Answer Comments Decision Thoroughly Discussed with: Patient * Full Code Date Activated Date Inactivated Comments 04/28/2023 9:15 PM 05/24/2023 2:10 PM Care Teams Security Orderly Relationship Specialty Start Date End Date Adrianna Sharp MD [address] [place] [address] PCP - General Family Medicine 04/29/23
--- OUTSIDE RECORDS SUMMARY | 2024-11-17 12:48 | XMS_ITS | Patient Health Record ---
Author Organization [facility] Address [address] [place] [address] Care Team Providers Care Automotive Electrical Helper Name Role Phone Adrianna Sharp Primary Care Provider Bin Salinas Unavailable [phone] REASON FOR REFERRAL No Information SOCIAL HISTORY Sex Assigned At : Social History Observation Description Sex Assigned At Unknown PROBLEMS Problem Type ICD Code Onset Dates Problem Status W/U Status Risk SNOMED Code Notes Problem Gallstones (K80.20) Active confirmed Gallstones (138377147) PLAN OF TREATMENT No Information Insurance Providers Payer Name Payer Address Payer Phone Subscriber Number Group Number Insured Name Patient Relationship to Insured Coverage Start Date Coverage End Date MEDICARE OF [place] [address] [place] [address] [id number] ISMAEL JUÁREZ Self - patient is the insured MEDICAID OF [facility] [address] [place] [phone] [id number] ISMAEL JUÁREZ Self - patient is the insured MEDICARE OF [place] [address] [place] [address] [id number] ISMAEL JUÁREZ Self - patient is the insured [facility] [address] [place] [address] [id number] ISMAEL JUÁREZ Self - patient is the insured 3 MEDICAL (GENERAL) HISTORY Medical History History ICD Code colon and egd 11-30-2009 history of anemia gastric polyp pernicious anemia
== END ==
LOC: HO.CARD 10:41
PROVIDERS: PCP Internal Medicine; Visit Provider Internal Medicine Pulmonary Disease
DX: R06.09 Other forms of dyspnea (principal)
CPT/HCPCS: 93306; Q9957

== ENCOUNTER 2024-12-21 13:46 | Outpatient (AMB) | payer OTHER, SELFPAY ==
--- NOTE | 2024-12-21 14:12 | A.OFFPC_ITS ---
Vital Signs 12/21/24 14:14 Height 4 ft 11 in Weight 208 lb BMI 42.0 BP 136/86 Blood Pressure Location Lt brachial Position Sitting Intake Visit Reasons: right shoulder arthroscopy 01/14 Biology Internship Required: No Accompanied by: Self / Same As Patient Allergies latex [LATEX] Allergy (Intermediate, Verified 12/21/24 14:29) RASH oxycodone Adverse Reaction (Severe, Verified 12/21/24 14:29) Itching Medication List - Last Reconciled 12/21/24 by Adrianna Richter MD Advair HFA 230-21 mcg/actuation (fluticasone propion-salmeterol) 2 puffs inhalation Q12H NS albuterol sulfate 90 mcg/actuation (Proair Digihaler) 2 inhalations inhalation Q4H PRN albuterol sulfate 2.5 mg (3 mL) inhalation Q6H PRN 30 days atorvastatin 20 mg PO DAILY 90 days colchicine 0.6 mg PO BID 2 days CPAP (CPAP Machine/Device) autoPAP 6-16 cmH2O cyanocobalamin (vitamin B-12) (Vitamin B-12) 1,000 mcg PO DAILY escitalopram oxalate 20 mg PO BEDTIME 90 days furosemide 40 mg PO QAM indomethacin 50 mg PO TID 5 days lorazepam 1 mg (2 x 0.5 mg) PO DAILY PRN 1 day metoprolol succinate ER 25 mg PO DAILY 90 days miconazole nitrate 2% 1 appl topical BID 2 weeks miscellaneous medical supply GRAB BAR 18 miscellaneous medical supply toilet safety frame nebulizers (AeroEclipse II Nebulizer) As directed nystatin 1 appl topical BID PRN 2 weeks oxycodone-acetaminophen 7.5-325 mg 1 tab PO Q8H PRN 30 days [showerhead As directed] walker (Ultra-Light Rollator misc) As directed Tobacco use date assessed: 12/21/24 Fall risk assessment: No Falls in past year Last assessed Fall Risk: 12/21/24 Dental Screening Dental Screen Date: 12/21/24 Did you have a dental visit in the last 12 months?: No Did you have a dental problem in the last 6 months where you did not have access to dental care?: No Was dental information given to patient?: Patient has dentist HPI HPI Comments History of Present Illness Details The patient is a 69-year-old female presenting with a scheduled right shoulder arthroscopy. Recent preoperative evaluations include electrocardiograms and laboratory tests obtained to ensure surgical clearance. Her medical history is notable for cardiac catheterization with stent placement, bilateral knee replacements, cataract extractions, and surgical history for left breast cancer. Additionally, she has a diagnosis of obstructive sleep apnea and mild depression, managed with CPAP and medication respectively. Atorvastatin, vitamin B12, citalopram, furosemide, indomethacin, and metoprolol are amongst her prescribed medications, along with oxycodone-acetaminophen for pain management. The patient reports allergies to latex and oxycodone. Though she ambulates with a cane, no significant dyspnea during exertion is reported. Alcohol and tobacco use are both absent in her social history. [facility] Medical History (Updated 12/21/24 @ 20:10 by Adrianna Richter MD) Severe major 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 psychotic features CKD (chronic kidney disease) stage 3, GFR 30-59 ml/min Acute hypoxemic respiratory failure Sepsis Acute kidney injury Abdominal pain Morbid obesity Gallstones Common bile duct dilation Elevated TSH Hair loss Murmur Moderate persistent asthma Morbid obesity Mild recurrent major depression B12 deficiency Hair loss Right hip pain Dyslipidemia Foot pain, bilateral Lumbar degenerative disc disease History of vitamin D deficiency History of pernicious anemia Arthritis Back pain History of trigger finger History of left bundle branch block (LBBB) On beta mel at home Breast cancer Mild aortic stenosis Sleep apnea Constipation Dizziness Tinnitus Chronic pain HTN (hypertension) Asthma Depression Surgical History History of cholecystectomy History of cardiac cath Hx of bilateral cataract extraction History of total right knee replacement (TKR) History of total left knee replacement (TKR) History of dilation and curettage Hx of colonoscopy Hx of esophagogastroduodenoscopy History of lymph node dissection of left axilla S/P lumpectomy, left breast Family History Father Prostate cancer Hypertension Mother Skin cancer Dementia Diabetes Daughter Lupus Maternal Grandmother Diabetes Hypertension Maternal Grandfather No problems noted. Paternal Grandmother No problems noted. Paternal Grandfather Cancer Brother Prostate cancer Social History Household Members: Spouse and Family Household Members Other:: Graddaughter Housing: House Do you presently have visiting nurse or other home services: Yes Alcohol intake: never Patient Tobacco Use Status: Never used Tobacco e-Cigarette/Vaping Use: Never Used Second Hand Smoke Exposure: No Substance Use Type: Marijuana Advance Directives Date on File: 08/05/22 service: No Current occupational status: disabled Cognitive needs: Yes Hearing needs: No Vision needs: Yes Questionnaire PHQ-9 Over the last 2 weeks, how often have you been bothered by any of the following problems? 1. Little interest or pleasure in doing things: several days 2. Feeling down, depressed, or hopeless: more than half the days 3. Trouble falling or staying asleep, or sleeping too much: more than half the days 4. Feeling tired or having little energy: more than half the days 5. Poor appetite or overeating: several days 6. Feeling bad about yourself - or that you are a failure or have let yourself or your family down: not at all 7. Trouble concentrating on things, such as reading the newspaper or watching television: not at all 8. Moving or speaking so slowly that other people could have noticed. Or the opposite - being so fidgety or restless that you have been moving around a lot more than usual: not at all 9. Thoughts that you would be better off or of hurting yourself in some way: not at all Total score: 8 Depression Screening Interpretation: Positive Depression Screening Follow-up: Existing condition, In treatment and Follow-up Visit Requested Depression Screening Done: Yes 40614 - PHQ-9 Billing: Yes Source: Developed by Drs. Bin Islas, Stephanie Lowery, Markie Escobedo and colleagues, with an educational lo from [employer]. Thrive Questionnaire Date Thrive assessed: 12/21/24 I am a: Patient What is your living situation today?: I have a steady place to live Within the past 12 months, did the food you bought not last and you didn't have the money to get more?: Never true Within the past 12 months, did you worry whether your food would run out before you got money to buy more?: Never true Do you have trouble paying for medicines?: No Do you have trouble getting transportation to medical appointments?: No Do you have trouble paying your heating and electricity bill?: No Do you have trouble taking care of your child, family member or friend?: No Do you have trouble with day-to-day activities such as bathing, preparing meals, shopping, managing finances, etc.?: No Are you currently unemployed and looking for a job?: No Are you interested in more education?: No Please select the resources that you would like help with: None Currently or been in a relationship where the following occur: No concerns reported THRIVE Score: 0 AUDIT C Alcohol Use Questionnaire (AUDIT-C) 1. How often do you have a drink containing alcohol?: Never Total Score: 0 RYANNE-7 AMB Questionnaire RYANNE-7 Date RYANNE - 7 assessed: 12/21/24 Feeling nervous, anxious, or on edge: 1 = Several days Not being able to stop or control worryin = Not at all Worrying too much about different things: 1 = Several days Trouble relaxin = Not at all Being so restless that it is hard to sit still: 0 = Not at all Becoming easily annoyed or irritable: 1 = Several days Feeling afraid as if something awful might happen: 0 = Not at all Total RYANNE-7 score (0-4 normal; 5-9 mild; 10-14 moderate; 15-21 severe): 3 Source: Developed by Drs. Bin Islas, Stephanie Lowery, Markie Escobedo and colleagues, with an educational lo from [employer]. RYANNE-7 Assessment Billing RYANNE-7 Assessment Tool: RYANNE-7 Assessment 23467 Review of Systems Const All systems reviewed & are unremarkable except as noted in HPI and below Card Denies chest pain at rest, Denies chest pain with activity, Denies edema, Denies irregular heart rhythm, Denies claudication, Denies dyspnea, Denies dyspnea on exertion, Denies orthopnea, Denies paroxysmal nocturnal dyspnea and Denies slow heart rate Resp Denies cough, Denies dyspnea and Denies dyspnea on exertion Musc Denies atrophy, Denies deformity and Denies limited range of motion Skin/Breast Denies bleeding lesions, Denies changing lesions and Denies rash Physical exam (Primary Care) Vital Signs: Last Vital Signs BP 136/86 12/21/24 14:14 BMI result Body Mass Index 42.0 BMI Assessment/Plan discussion: High BMI High, discussed plan: lifestyle, weight reduction, dietary and physical activity Tobacco/Smoking Status: Tobacco use Status Tobacco use date assessed 12/21/24 12/21/24 14:21 Patient Tobacco Use Status Never used Tobacco 12/21/24 14:21 e-Cigarette/Vaping Use Never Used 12/21/24 14:21 PHQ-9: PHQ-9 Score PHQ-9: Total score 8 12/21/24 14:41 Depression Screening Interpretation: Positive Depression Screening Follow-up: Existing condition, In treatment and Follow-up Visit Requested Thrive Assessment: Date of Thrive Assessment Date Thrive assessed 12/21/24 12/21/24 14:21 Currently or been in a relationship where the following occur: No concerns reported Const Limitations: ambulation with cane Resp Effort & Inspection: normal respiratory effort Auscultation: clear to auscultation bilaterally Cardio Jugular venous distension: no JVD Rate: regular rate Rhythm: regular rhythm Heart sounds: S1 normal heart sound present and S2 normal heart sound present Extrem General: Yes full ROM Coding Level of Care Code Est Pt Level 4 (72876) Complex EM visit Add On G2211 Diagnoses Pre-op evaluation Z01.818 Mild major depression F32.0 Anxiety F41.9 Impingement of right shoulder M25.811 DORA on CPAP G47.33 Additional Codes RYANNE-7 Assessment Billing - RYANNE-7 Assessment Tool: RYANNE-7 Assessment 35143 ([id number]) PHQ-9 - 29080 - PHQ-9 Billing: Yes ([id number]) Time Spent (min) 23 Assessment & Plan Assessment & Plan (1) Pre-op evaluation: Code(s): Z01.818 - Encounter for other preprocedural examination Category: Medical (2) Mild major depression: Code(s): F32.0 - Major depressive disorder, single episode, mild Category: Medical (3) Anxiety: Code(s): F41.9 - Anxiety disorder, unspecified Category: Medical (4) Impingement of right shoulder: Code(s): M25.811 - Other specified joint disorders, right shoulder Category: Medical (5) DORA on CPAP: Code(s): G47.33 - Obstructive sleep apnea (adult) (pediatric) Category: Medical Plan Preoperative preparations for the right shoulder arthroscopy have been substantiated with cardiology and laboratory clearances. Her medications will address existing medical conditions, keeping in mind her known allergies to latex and oxycodone. CPAP usage in the perioperative period will ensure respi ratory stability. Anxiety medication will be introduced to aid perioperative mental health. The minimal depression identified will remain managed with ongoing citalopram therapy. Patient was informed and verbally consented to the use of an ambient scribe for clinic note documentation during this visit. I discussed the patient's readiness for the scheduled right shoulder arthroscopy, confirming preoperative clearance from cardiology based on recent tests. We reviewed her allergy profile, ensuring hospital precautions against latex and oxycodone use. Her medical regimen appeared appropriate for her conditions without significant changes needed, except for addressing her expressed anxiety for which I prescribed a suitable anxiety medication to be taken thrice daily as needed. Continuous CPAP usage is recommended to support her sleep apnea, especially around her surgical date. Her depressive symptoms were evaluated, and current management deemed sufficient with a low PHQ-9 result. Medications: New commode As directed 1 ea 0RF G89.29 - Other chronic pain, M51.36 - Other inte rvertebral disc degeneration, lumbar region buspirone 10 mg PO TID 90 tabs 0RF 30 days F41.9 - Anxiety disorder, unspecified Refilled escitalopram oxalate 20 mg PO BEDTIME 90 tabs 1RF 90 days Patient Instructions: - Continue all medications as prescribed - Avoid latex and oxycodone due to allergies - Continue using CPAP nightly - Follow up as scheduled for right shoulder arthroscopy - Take anxiety medication three times daily as prescribed if needed - Report any concerning signs, such as increased pain or respiratory difficulty post-surgery - Maintain scheduled preoperative care appointments
[2024-12-21 14:14] VITALS: BP 136/86; BMI 42.0
--- OUTSIDE RECORDS SUMMARY | 2024-12-21 17:26 | XMS_ITS | Data Portability ---
Author Organization [facility] [place], [place] in [facility] Address [address] [place] [id number] Care Team Providers Care Adult Secondary Education Instructor Name Role Phone HIM CCA OTHER AMBROSE JAMES Primary Care Provider Assessment Encounter Date Assessment Date Assessment LastModified [...] to allow for adequate healing. Precautions reviewed. Not available 10/07/2024 21:49:22 Plan of Treatment Reminders Order Date Submit Date Provider Last Modified By Organization Details Last Modified Time Details Appointments None recorded. Lab rapid flu (A+B) 2024 025 [email or web address] [facility], [address] [place] [address], [id number], 5 14:16:35 rapid SARS CoV 2 Ag, QL IA, respiratory specimen 2024 025 [email or web address] [facility], [address] [place] [address], [id number], 5 14:16:35 Referral None recorded. Procedures None recorded. Surgeries None recorded. Imaging None recorded. Medication Orders ipratropium 0.5 mg-albutero l 3 mg (2.5 mg base)/3 mL nebulizatio n soln 2024 025 [email or web address] [facility]/Pharmacy #[id number], [address] [place], [address], 5 14:16:35 prednisone 10 mg tablet 2024 025 [facility]/Pharmacy #[id number], [address] [place], [address], 5 14:18:56 prednisone 20 mg tablet [email or web address]/Pharmacy #[id number], [address] [place], [address], 5 14:18:54 clotrimazol e 1 % topical cream [address] [id number] [address] [place] [address], [address], 4 20:06:27 Patient TargetsNo targets recorded. Patient InstructionsNo instructions [...] Name and Address Organization Details Recorded Time 92448 oxycodone medicatio n Not available Not available Not available 10/07/2024 7804 RxNorm Not Available [facility] - production 4 16:21:18 53952 latex environme nt,medica tion Not available Not available Not available 10/07/2024 88743 91 RxNorm Not Available [facility] - production [...] /min 140 mm[Hg] 82 mm[Hg] Not Available [employer] [employer] 4 20:04:20 Date Recorded Body weight Respiratory rate Heart rate Body height Oxygen saturation Oxygen saturation in Arterial blood by Pulse oximetry Body temperature Systolic blood pressure Diastolic blood pressure Provider Name and Address Organization Details Last Updated DateTime 5 15149.3 2 g 18 /min 68 /min 147.32 cm 96 % 96 % 98 [degF] 140 mm[Hg] 85 mm[Hg] Not Available [employer] - production 5 14:10:41 Social History None recorded. Functional Status None recorded. Mental Status None recorded. Family History Nothing Reported. Medical History No medical history recorded. Gynecological HistoryNo gynecological history recorded. Obstetrics History GPAL:G 0 P 0 0 0 0 Past Encounters Encounter ID Performer Location Encounter Start Date Encounter Closed Date Diagnosis/Indication Diagnosis SNOMED-CT Code Diagnosis ICD10 Code Diagnosis Note [id number] MAU RUFFIN MD [facility] - [facility] [address] [place] [id number] 10/07/2024 20:04:14 10/07/2024 23:05:27 Tinea corporis 72159491 B35.4 [id number] [facility] [address] [place] [id number] 11/02/2024 14:06:32 11/02/2024 22:25:51 Upper respiratory infection [id number] J06.9 Evaluation in the field was performed by my cattle and wheat farmer colleague, as noted above, I provided real-time direction and supervisio n for this visit. 68yo F PMHx asthma p/w 2 weeks URI symptoms including cough, rhinorrhea , and increased wheezing without fevers, chest pain. Improved with inhalers. Reports she usually receives antibiotic s every year for this. Denies hx tobacco use. On cattle and wheat farmer eval VS sat 96% RA normal RR. [...] Taylor Member ID Guarantor Name 10/07/2024 1 [facility] - DOS ON OR AFTER 2023 - DUAL ELIGIBLE - [employer] OPTIONS AND ONE CARE (MEDICARE REPLACEMENT/ADV ANTAGE - HMO) Marita Murray [id number] Marita Murray 11/02/2024 1 [facility] - DOS ON OR AFTER 2023 - DUAL ELIGIBLE - [facility] OPTIONS AND ONE CARE (MEDICARE REPLACEMENT/ADV ANTAGE - HMO) Marita Murray [id number] Marita Murray Notes Date Note Type Note [...] .................... .................... .................... .................... .................... .................... . Ic Engineer Note From Zaki Vega: Dispatched to the [...] .................... .................... .................... .................... .................... .................... . [facility] Consulted: Mau Ruffin .................... .................... .................... .................... .................... .................... .................... . Disposition: Fulfilled MAU RUFFIN MD [address] [facility],[address], [place], [address], [facility] [place] 10/07/2024 21:49:34 11/02/2024 text/html CRC Nurse Triage [...] s/s and seek emergency treatment if needed. Ic Engineer Organization Information for Yamile Cary [employer] Legal Name: [employer] Address: [address] [place] [address], Credit Analyst: Constantin Machado MD CLIA No.: [id number] Ic Engineer POC Test Results from Luis Daniel [employer] Rapid influenza antigen (14:11:38) Flu: - Rapid COVID antigen (14:11:39) COVID: - .................... .................... .................... .................... .................... .................... .................... . Ic Engineer Note From Yamile Cary: Sent to a [...] Duo neb administered; Lung sounds: clear bialterally; [facility] consulted and orders Prednisone 40mg PO. [facility] sends script to pt's pharmacy. Prednisone 40mg PO administered. Pt advised to use symptomatic treatment as outlined. Red flags discussed. Pt has no further questions. .................... .................... .................... .................... .................... .................... .................... . [facility] Consulted: Sanam Russell .................... .................... .................... .................... .................... .................... .................... . Disposition: Fulfilled Sanam Russell MD [address] [facility],[address] [facility], [place], [address], ELENITA BRITTANY PEREZ 11/02/2024 16:46:28 OBGyn Episode No OBEpisode recorded.
--- OUTSIDE RECORDS SUMMARY | 2024-12-21 17:26 | XMS_ITS | Clinical Summary ---
Author Organization [facility] Address [address] [address] Phone Care Team Providers Care Music Typographer Name Role Phone Adrianna Sharp MD Primary Care Provider [phone] Allergies Active Allergy Reactions Criticality Noted Date [...] Office Visit [facility] [address] [phone] Dayanara Marcus ARNP Chronic kidney disease, stage 2 (mild) (Primary Dx); Hypertension from Last 3 Months Family History Medical [...] Visit [facility] [address] [facility] [address] [place] [address] Dayanara Marcus ARNP [address] [address] Health Maintenance Due Date Last Done Comments Breast Cancer Screening 1955 Pneumococcal Vaccine: 65+ Ye ars (1 of 2 - PCV) 1959 Colorectal Cancer Screening: Annual FOBT 2002 Colorectal Cancer Screening: Colonoscopy 2002 Colorectal Cancer Screening: Sigmoidoscopy 2002 Influenza Vaccine (#1) 2024 Hepatitis B Vaccine Aged Out No longe r eligible based on patient's age to complete this topic [place] [address] MCR ([id number]) [facility] MCR ([id number]) REBEKAH KINSEY [phone] Care Teams Music Typographer Relationship Specialty Start Date End Date Adrianna Sharp MD [address] [place], [place] PCP - General Internal Medicine 06/25/23
--- OUTSIDE RECORDS SUMMARY | 2024-12-21 17:26 | XMS_ITS | Clinical Summary ---
Author Organization [facility] Address [address] [place] [address] Care Team Providers Care Housekeeping Staff Name Role Phone Adrianna Sharp MD Primary Care Provider [phone] Allergies Active Allergy Reactions Criticality Noted Date [...] 12/19/2022 Active furosemide (LASIX) 40 MG tabletIndications:Ac tu gastric ulcer without hemorrhage or perforation Take 1 tablet (40 mg total) by mouth daily. Do not start before May 07, 2023. 30 tablet 05/07/2023 Active cholecalciferol (CHOLECALCIFEROL) 25 MCG (1000 UT) tabletIndications:Ac tu gastric ulcer without hemorrhage or perforation Take 1 tablet (1,000 Units total) by mouth daily. Do not start before May 07, 2023. 30 tablet 05/07/2023 Active cyanocobalamin (VITAMIN B12) 1000 MCG tabletIndications:Ac tu gastric ulcer without hemorrhage or perforation Take 1 tablet (1,000 mcg total) by mouth daily. Do not start before May 07, 2023. 30 tablet 05/07/2023 Active PANTOprazole (PROTONIX) 40 MG EC tabletIndications:Ac tu gastric ulcer without hemorrhage or perforation Take [...] (BACTRIM DS,SEPTRA DS) 800-160 MG per tabletIndications:Li filpipo abscess Take 1 tablet by mouth every [...] place to sleep or slept in a jail (including now)? No 05/25/2023 Sex and Gender [...] this topic Medical Devices Explanted Type Area Excelsior Cutter Device Identifier Shelf Expiration Date Model / Serial / Lot [id number] Stent Pancreatic 5fr 5cm Pigtail Curve Radopq Push Cath - [id number] Implanted:Qty: 1 on 04/29/2023 by Bryan Chester MD at [facility] Explanted:Qty: 1 on 05/06/2023 by Kristyn Paez MD at [facility] Stent N/A: Bile Duct [employer] [id number] 12/30/2025 [id number] / / [id number] Advance Directives * Full Code (Latest Code Status on File) Date Activated Date Inactivated Comments 05/24/2023 3:08 PM Question Answer Comments Decision Thoroughly Discussed with: Patient * Full Code Date Activated Date Inactivated Comments 04/28/2023 9:15 PM 05/24/2023 2:10 PM Care Teams Housekeeping Staff Relationship Specialty Start Date End Date Adrianna Sharp MD [address] [place] [id number] PCP - General Family Medicine 04/29/23
--- OUTSIDE RECORDS SUMMARY | 2024-12-21 17:26 | XMS_ITS | Patient Health Record ---
Author Organization [facility] Address [address] [place] [address] Care Team Providers Care It Communications Specialist Name Role Phone Adrianna Sharp Primary Care Provider Bin Salinas Unavailable [phone] REASON FOR REFERRAL No Information SOCIAL HISTORY Sex Assigned At : Social History Observation Description Sex Assigned At Unknown PROBLEMS Problem Type ICD Code Onset Dates Problem Status W/U Status Risk SNOMED Code Notes Problem Gallstones (K80.20) Active confirmed Gallstones ([id number]) PLAN OF TREATMENT No Information Insurance Providers Payer Name Payer Address Payer Phone Subscriber Number Group Number Insured Name Patient Relationship to Insured Coverage Start Date Coverage End Date [place] [address] [place] [address] [id number] ISMAEL JUÁREZ Self - patient is the insured MEDICAID OF [facility] [address] [place] [address] [id number] ISMAEL JUÁREZ Self - patient is the insured [place] [address] [place] [address] [id number] ISMAEL JUÁREZ Self - patient is the insured [facility] [address] [place] [address] [id number] ISMAEL JUÁREZ Self - patient is the insured 3 MEDICAL (GENERAL) HISTORY Medical History History ICD Code colon and egd 11-30-2009 history of anemia gastric polyp pernicious anemia
--- OUTSIDE RECORDS SUMMARY | 2024-12-21 17:26 | XMS_ITS | Encounter Summary ---
Author Organization [facility] Address [address] [place] [address] Care Team Providers Care Segmental Paver Installer Name Role Phone Pcp, No Primary Care Provider Unavailabl e Adrianna Sharp MD Primary Care Provider Encounter Details Date Type Department Care Team (Late st Contact Info) Description 04/28/2023 Scanned Document [facility] Emergency Department [address] [place] [address] Provider, Generic Social History Tobacco Use Types [...] place to sleep or slept in a correction (including now)? No 04/29/2023 Sex and Gender [...] documented as of this encounter Care Teams Segmental Paver Installer Relationship Specialty Start Date End Date Pcp, No [address] [place] [address] PCP - General 04/28/23 04/28/23 Adrianna Sharp MD [address] [place] [address] PCP - General Family Medicine 04/29/23 documented as of this encounter
== END 2024-12-21 14:42 | disposition home or self-care (01) ==
PROVIDERS: PCP Internal Medicine; Visit Provider Internal Medicine
DX: Z01.818 Encounter for other preprocedural examination (principal); F32.0 Major depressive disorder, single episode, mild; F41.9 Anxiety disorder, unspecified; M25.811 Other specified joint disorders, right shoulder; G47.33 Obstructive sleep apnea (adult) (pediatric)

== ENCOUNTER → 2024-12-21 13:46 | Outpatient (BNVA) | payer OTHER, SELFPAY | PROVIDERS: PCP Internal Medicine; Visit Provider Internal Medicine | DX: Z01.818 Encounter for other preprocedural examination (principal); F32.0 Major depressive disorder, single episode, mild; F41.9 Anxiety disorder, unspecified; M25.811 Other specified joint disorders, right shoulder; G47.33 Obstructive sleep apnea (adult) (pediatric) | CPT/HCPCS: 96127; 99212 ==

== ENCOUNTER 2024-12-22 10:58 | Outpatient (AMB) | payer OTHER, SELFPAY ==
[2024-12-22 10:59] VITALS: BP 122/78; PULSE 78; O2SAT 96; BMI 42.0
--- NOTE | 2024-12-22 10:59 | MHC.OFFVIS ---
Vital Signs 12/22/24 10:59 Height 4 ft 11 in Weight 208 lb BMI 42.0 BP 122/78 Blood Pressure Location Rt brachial Position Sitting Pulse 78 Pulse Source Doppler Pulse Oximetry (%) 96 Oxygen Delivery Method Room Air Comment verbal weight (patient refused to get on scale) Intake Visit Reasons: R shoulder Arthroscopy (01/14-Dr. Tran) Allergies latex [LATEX] Allergy (Intermediate, Verified 12/22/24 11:04) RASH oxycodone Adverse Reaction (Severe, Verified 12/22/24 11:04) Itching HPI HPI R shoulder Arthroscopy (01/14-Dr. Tran): Details: 69-year-old lady, nonsmoker of tobacco products, uses marijuana now followed for asthma , orthopnea, and DORA. She has been using Advair and albuterol MDI with reasonable control of her symptoms, including improving orthopnea on increased dose of furosemide 40 mg daily. She also has been using CPAP with good control of her underlying sleep apnea symptoms. Patient did have follow-up 2D echocardiogram that shows somewhat reduced left ventricular ejection fraction of 48%. She does follow with [facility]. [facility] Medical History (Updated 12/22/24 @ 12:20 by Waldo Pop MD) Severe major 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 psychotic features CKD (chronic kidney disease) stage 3, GFR 30-59 ml/min Acute hypoxemic respiratory failure Sepsis Acute kidney injury Abdominal pain Morbid obesity Gallstones Common bile duct dilation Elevated TSH Hair loss Murmur Moderate persistent asthma Morbid obesity Mild recurrent major depression B12 deficiency Hair loss Right hip pain Dyslipidemia Foot pain, bilateral Lumbar degenerative disc disease History of vitamin D deficiency History of pernicious anemia Arthritis Back pain History of trigger finger History of left bundle branch block (LBBB) On beta mel at home Breast cancer Mild aortic stenosis Sleep apnea Constipation Dizziness Tinnitus Chronic pain HTN (hypertension) Asthma Depression Surgical History History of cholecystectomy History of cardiac cath Hx of bilateral cataract extraction History of total right knee replacement (TKR) History of total left knee replacement (TKR) History of dilation and curettage Hx of colonoscopy Hx of esophagogastroduodenoscopy History of lymph node dissection of left axilla S/P lumpectomy, left breast Family History Father Prostate cancer Hypertension Mother Skin cancer Dementia Diabetes Daughter Lupus Maternal Grandmother Diabetes Hypertension Maternal Grandfather No problems noted. Paternal Grandmother No problems noted. Paternal Grandfather Cancer Brother Prostate cancer Social History Household Members: Spouse and Family Household Members Other:: Graddaughter Housing: House Do you presently have visiting nurse or other home services: Yes Alcohol intake: never Patient Tobacco Use Status: Never used Tobacco e-Cigarette/Vaping Use: Never Used Second Hand Smoke Exposure: No Substance Use Type: Marijuana Advance Directives Date on File: 08/05/22 service: No Current occupational status: disabled Cognitive needs: Yes Hearing needs: No Vision needs: Yes Review of Systems Const Denies daytime sleepiness, Denies excessive sweating, Denies fatigue, Denies fever(s), Denies lethargy, Denies malaise, Denies night sweats, Denies snoring and Denies weight loss Eyes Denies blurry vision and Denies itchy eyes ENT Denies nasal congestion, Denies post nasal drip, Denies sinus pain, Denies sinus pressure and Denies other ( Thrush) Card Denies chest pain, Denies pedal edema, Denies dyspnea, Denies orthopnea and Denies paroxysmal nocturnal dyspnea Resp Denies cough, Denies hemoptysis, Denies excessive phlegm production, Denies dyspnea, Denies snoring and Denies wheezing GI Denies abdominal pain and Denies heartburn Musc Denies myalgias, Denies arthralgias and Denies joint swelling Skin/Breast Denies rash Neuro Denies memory loss and Denies seizure-like activity Psych Denies abnormal sleep pattern, Denies anxiety and Denies memory loss Endo Denies excessive sweating, Denies fatigue and Denies heat intolerance Natan/Lymph Denies easy bruising Aller/Immun Denies itchy eyes, Denies seasonal rhinorrhea and Denies wheezing Physical Exam Vital Signs: Last Vital Signs Pulse 78 12/22/24 10:59 BP 122/78 12/22/24 10:59 Pulse Ox 96 12/22/24 10:59 Oxygen Delivery Method Room Air 12/22/24 10:59 BMI result Body Mass Index 42.0 Const General: no acute distress and alert Nutritional Appearance: obese Orientation/consciousness: Other orientation findings ( oriented) HEENT Head: Yes atraumatic Eyes General: appearance normal, both eyes and all related structures Sclerae: sclerae normal EOM: EOMs intact bilaterally Neck Neck: Yes supple Lymphatic: no lymphadenopathy noted Resp Effort & Inspection: normal respiratory effort and no use of accessory muscles Auscultation: clear to auscultation bilaterally Cardio Rate: regular rate Rhythm: regular rhythm Heart sounds: no gallops, no murmurs and no rubs Skin General skin exam: other ( warm) Extrem General: No clubbing, No cyanosis and No edema Assessment & Plan Assessment & Plan (1) Moderate persistent asthma: Code(s): J45.40 - Moderate persistent asthma, uncomplicated Category: Medical Plan: Well controlled on current regimen of Advair and albuterol MDI/nebs. Continue current regimen. (2) DORA (obstructive sleep apnea): Code(s): G47.33 - Obstructive sleep apnea (adult) (pediatric) Category: Medical Plan: Well controlled CPAP therapy. Continue CPAP therapy. (3) Orthopnea: Code(s): R06.01 - Orthopnea Category: Medical Plan: Improved significantly after increasing Lasix to 40 mg daily. Continue current regimen. Results of 2D echocardiogram, somewhat reduced left ventricular ejection fraction 48%. Patient follows up with [facility]. (4) Encounter for preoperative pulmonary examination: Code(s): Z01.811 - Encounter for preprocedural respiratory examination Category: Medical Plan: At this time patient is at low risk for pulmonary preoperative complications for the proposed arthroscopy either under general anesthesia or monitored anesthesia care. Secondary to underlying obstructive sleep apnea, consider extubation to BiPAP as needed. Coding Level of Care Code Est Pt Level 4 (29481) Complex EM visit Add On G2211 Diagnoses Moderate persistent asthma J45.40 DORA (obstructive sleep apnea) G47.33 Orthopnea R06.01 Encounter for preoperative pulmonary examination Z01.811
--- OUTSIDE RECORDS SUMMARY | 2024-12-22 13:17 | XMS_ITS | Clinical Summary ---
Author Organization [facility] Address [address] [address] Phone Care Team Providers Care Inside Account Representative Name Role Phone Adrianna Sharp MD Primary Care Provider [phone] Allergies Active Allergy Reactions Criticality Noted Date [...] Office Visit [facility] [address] [phone] Dayanara Marcus ARNP Chronic kidney disease, stage [...] Visit [facility] [address] [facility] [facility] [address] [place] [address] Dayanara Marcus ARNP [address] [address] Health Maintenance Due Date Last Done Comments Breast Cancer Screening 1955 Pneumococcal Vaccine: 65+ Ye ars (1 of 2 - PCV) 1959 Colorectal Cancer Screening: Annual FOBT 2002 Colorectal Cancer Screening: Colonoscopy 2002 Colorectal Cancer Screening: Sigmoidoscopy 2002 Influenza Vaccine (#1) 2024 Hepatitis B Vaccine Aged Out No longe r eligible based on patient's age to complete this topic [place] [address] [place] [address] MCR ([id number]) [facility] MCR ([id number]) [place] [address] Care Teams Inside Account Representative Relationship Specialty Start Date End Date Adrianna Sharp MD [address] [place], [place] PCP - General Internal Medicine 06/25/23
--- OUTSIDE RECORDS SUMMARY | 2024-12-22 13:17 | XMS_ITS | Clinical Summary ---
Author Organization [facility] Address [address] [place] [address] Care Team Providers Care Case Consultant Name Role Phone Adrianna Sharp MD Primary Care Provider Allergies Active Allergy Reactions Criticality Noted Date [...] place to sleep or slept in a mcc (including now)? No 05/25/2023 Sex and Gender [...] this topic Medical Devices Explanted Type Area Food Service Steward Device Identifier Shelf Expiration Date Model / Serial / Lot [id number] Stent Pancreatic 5fr 5cm Pigtail Curve Radopq Push Cath - [id number] Implanted:Qty: 1 on 04/29/2023 by Bryan Chesetr MD at [facility] Explanted:Qty: 1 on 05/06/2023 by Kristyn Paez MD at [facility] Stent N/A: Bile Duct [employer] [id number] 12/30/2025 [id number] / / [id number] Advance Directives * Full Code (Latest Code Status on File) Date Activated Date Inactivated Comments 05/24/2023 3:08 PM Question Answer Comments Decision Thoroughly Discussed with: Patient * Full Code Date Activated Date Inactivated Comments 04/28/2023 9:15 PM 05/24/2023 2:10 PM Care Teams Case Consultant Relationship Specialty Start Date End Date Adrianna Sharp MD [address] [place] [address] PCP - General Family Medicine 04/29/23
--- OUTSIDE RECORDS SUMMARY | 2024-12-22 13:17 | XMS_ITS | Encounter Summary ---
Author Organization [facility] Address [address] [place] [address] Care Team Providers Care Legal Service Specialist Name Role Phone Pcp, No Primary Care Provider Unavailabl e Adrianna Sharp MD Primary Care Provider [phone] Encounter Details Date Type Department Care Team (Late st Contact Info) Description 04/28/2023 Scanned Document [facility] Emergency Department [address] [place] [address] Provider, Generic Social History Tobacco Use Types [...] place to sleep or slept in a [facility] (including now)? No 04/29/2023 Sex and Gender [...] documented as of this encounter Care Teams Legal Service Specialist Relationship Specialty Start Date End Date Pcp, No [address] [place] [address] PCP - General 04/28/23 04/28/23 Adrianna Sharp MD [address] [place] [address] PCP - General Family Medicine 04/29/23 documented as of this encounter
--- OUTSIDE RECORDS SUMMARY | 2024-12-22 13:17 | XMS_ITS | Patient Health Record ---
Author Organization [facility] Address [address] [place] [address] Care Team Providers Care Seed Potato Cutter Name Role Phone Adrianna Sharp Primary Care Provider Bin Salinas Unavailable [phone] Reason For Referral No Information Problems Problem Type SNOMED Code ICD Code Onset Dates Problem Status W/U Status Risk Notes Problem Gallstones ([id number]) Gallstones (K80.20) Active confirmed Plan Of Treatment No Information Insurance Providers Payer Name Payer Address Payer Phone Subscriber Number Group Number Insured Name Patient Relationship to Insured Coverage Start Date Coverage End Date [place] [address] [place] [address] [id number] ISMAEL JUÁREZ Self - patient is the insured MEDICAID OF [facility] [address] [place] [address] [id number] ISMAEL JUÁREZ Self - patient is the insured [place] [address] [place] [address] [id number] ISMAEL JUÁREZ Self - patient is the insured [facility] [address] [place] [address] [id number] ISMAEL JUÁREZ Self - patient is the insured 3 Medical (General) History Medical History History ICD Code colon and egd 11-30-2009 history of anemia gastric polyp pernicious anemia
== END 2024-12-22 11:57 | disposition home or self-care (01) ==
PROVIDERS: PCP Internal Medicine; Visit Provider Internal Medicine Pulmonary Disease
DX: J45.40 Moderate persistent asthma, uncomplicated (principal); G47.33 Obstructive sleep apnea (adult) (pediatric); R06.01 Orthopnea; Z01.811 Encounter for preprocedural respiratory examination
CPT/HCPCS: 99214; G2211

== ENCOUNTER → 2024-12-22 10:58 | Outpatient (BNVA) | payer OTHER, SELFPAY | PROVIDERS: PCP Internal Medicine; Visit Provider Internal Medicine Pulmonary Disease | DX: Z01.811 Encounter for preprocedural respiratory examination (principal); J45.40 Moderate persistent asthma, uncomplicated; G47.33 Obstructive sleep apnea (adult) (pediatric); Z99.89 Dependence on other enabling machines and devices; R06.01 Orthopnea | CPT/HCPCS: 99212 ==

== ENCOUNTER 2025-01-01 22:03 | Emergency (ER) | payer OTHER, SELFPAY ==
--- NOTE | ~2025-01-01 | CT_ITS ---
CLINICAL HISTORY: upper epigastric abd pain, L flank pain CT abdomen and pelvis with contrast Comparison: CT - CT ABDOMEN PELVIS W IV CON - 01/02/25 00:11 EDT Findings: The lung bases are clear. Cholecystectomy. No biliary ductal dilatation. Solid organs normal. No urinary tract calculus, obstruction, or inflammation. No free fluid or free air in the abdomen or pelvis. Stomach and bowel are normal. Uterus and ovaries within normal limits. No acute fracture or suspicious bone lesion. IMPRESSION: No acute findings. This document has been electronically signed by: Jesus Tony MD on 01/02/2025 00:47:00
[2025-01-01 22:11] VITALS: BP 122/57; PULSE 65; RESP 16; TEMP 36.9; O2SAT 94; BMI 40.4
--- NOTE | 2025-01-01 22:17 | ECG_ITS ---
Test Reason : epigastric pains Blood Pressure : */* mmHG Vent. Rate : 64 BPM Atrial Rate : 64 BPM P-R Int : 128 ms QRS Dur : 146 ms QT Int : 434 ms P-R-T Axes : 35 -2 158 degrees QTcB Int : 447 ms Normal sinus rhythm Left bundle branch block Abnormal ECG When compared with ECG of 04-Jun-2024 13:45, Nonspecific T wave abnormality has replaced inverted T waves in Anterior leads Referred By: Generic ED Physician Electronically Signed By: CHAI PACHECO
[2025-01-01 22:30] LABS: MANUAL DIFF FLAG NO
--- NOTE | 2025-01-01 22:31 | MHC.EDTECH ---
Patient brought into triage area,EKG taken per order and signed by provider,labs drawn and sent to lab,pt brought to ED bed 3
[2025-01-01 22:33] LABS: Basophils Absolute Auto 0.1 X10*3/uL (0.0-0.2); Basophils Percent Auto 0.7 % (0-2); Eosinophils Absolute Auto 0.2 X10*3/uL (0.0-0.4); Eosinophils Percent Auto 2.2 % (0-4); Hematocrit 36.5 % (37.0-47.0); Hemoglobin 12.1 g/dl (12.0-16.0); Imm Gran Abs Auto 0.02 X10*3/uL (0.00-0.03); Imm Gran Pct Auto 0.2 % (0.0-0.4); Lymphocytes Absolute Auto 3.1 X10*3/uL (1.2-4.9); Lymphocytes Percent Auto 37.7 % (20-40); Mean Corpuscular HGB Conc 33.2 g/dl (31.0-35.0); Mean Corpuscular Hemoglobin 25.5 pg (27.0-33.0); Monocytes Absolute Auto 0.6 X10*3/uL (0.1-1.2); Monocytes Percent Auto 7.2 % (2-11); Neutrophils Absolute Auto 4.2 x10*3/uL (2.0-8.3); Platelet Count 234 X10*3/uL (160-400); Red Blood Count 4.74 X10*6/uL (4.20-5.50); Red Cell Distribution Width 15.5 % (11.0-16.0); White Blood Count 8.1 X10*3/uL (4.8-10.8)
--- OUTSIDE RECORDS SUMMARY | 2025-01-01 22:33 | XMS_ITS | Clinical Summary ---
Author Organization [facility] Address [address] [place] [address] Care Team Providers Care Mechanical Shop Laborer Name Role Phone Adrianna Sharp MD Primary Care Provider [phone] Allergies Active Allergy Reactions Criticality Noted Date [...] 12/19/2022 Active furosemide (LASIX) 40 MG tabletIndications:Ac buckland gastric ulcer without hemorrhage or perforation Take 1 tablet (40 mg total) by mouth daily. Do not start before May 07, 2023. 30 tablet 05/07/2023 Active cholecalciferol (CHOLECALCIFEROL) 25 MCG (1000 UT) tabletIndications:Ac buckland gastric ulcer without hemorrhage or perforation Take 1 tablet (1,000 Units total) by mouth daily. Do not start before May 07, 2023. 30 tablet 05/07/2023 Active cyanocobalamin (VITAMIN B12) 1000 MCG tabletIndications:Ac buckland gastric ulcer without hemorrhage or perforation Take 1 tablet (1,000 mcg total) by mouth daily. Do not start before May 07, 2023. 30 tablet 05/07/2023 Active PANTOprazole (PROTONIX) 40 MG EC tabletIndications:Ac buckland gastric ulcer without hemorrhage or perforation Take [...] place to sleep or slept in a usp (including now)? No 05/25/2023 Sex and Gender [...] this topic Medical Devices Explanted Type Area Tank Cooper Device Identifier Shelf Expiration Date Model / Serial / Lot [id number] Stent Pancreatic 5fr 5cm Pigtail Curve Radopq Push Cath - [id number] Implanted:Qty: 1 on 04/29/2023 by Bryan Chester MD at [facility] Explanted:Qty: 1 on 05/06/2023 by Kristyn Paez MD at [facility] Stent N/A: Bile Duct [employer] [id number] 12/30/2025 [id number] / / [id number] Advance Directives * Full Code (Latest Code Status on File) Date Activated Date Inactivated Comments 05/24/2023 3:08 PM Question Answer Comments Decision Thoroughly Discussed with: Patient * Full Code Date Activated Date Inactivated Comments 04/28/2023 9:15 PM 05/24/2023 2:10 PM Care Teams Mechanical Shop Laborer Relationship Specialty Start Date End Date Adrianna Sharp MD [address] [place] [address] PCP - General Family Medicine 04/29/23
--- OUTSIDE RECORDS SUMMARY | 2025-01-01 22:33 | XMS_ITS ---
Author Name [facility] Organization Unknown Encounters Encounter Type Encounter Reason Primary Diagnosis Location Date Ambulatory [facility] [employer] 10/17/2023 [facility] [place] [employer] 10/17/2023 Inpatient Abscess of liver Abscess of liver [facility] [employer] 05/24/2023 Inpatient Acute gastric ul cer without hemorrhage or perforation [facility] 04/28/2023 Emergency abdomina; pain [email or web address] 04/28/2023 Ambulatory [facility] [employer] 04/28/2023 Ambulatory [facility] [employer] 04/28/2023 [facility] 04/28/2023 Care Team Organization Name Specialty Phone Email Start Date End Da te Davin gDine AMBROSE KELLER Primary [facility] 05/24/2023 [employer] 04/29/2023 [employer] 04/28/2023 04/28/2023 [facility]in [facility] AMBROSE CADENA Primary Care 04/28/20232022 [facility] NO PCP Primary Care 04/28/2023 04/29/2023
--- OUTSIDE RECORDS SUMMARY | 2025-01-01 22:33 | XMS_ITS | Encounter Summary ---
Author Organization [facility] Address [address] [place] [address] Care Team Providers Care Rehabilitation Liaison Name Role Phone Pcp, No Primary Care Provider Unavailabl e Adrianna Sharp MD Primary Care Provider [phone] Encounter Details Date Type Department Care Team (Late st Contact Info) Description 04/28/2023 Scanned Document [facility] Emergency Department [address] [place] [address] Provider, Generic Social History Tobacco Use Types [...] place to sleep or slept in a custodial (including now)? No 04/29/2023 Sex and Gender [...] documented as of this encounter Care Teams Rehabilitation Liaison Relationship Specialty Start Date End Date Pcp, No [address] [place] [address] PCP - General 04/28/23 04/28/23 Adrianna Sharp MD [address] [place] [address] PCP - General Family Medicine 04/29/23 documented as of this encounter
--- OUTSIDE RECORDS SUMMARY | 2025-01-01 22:33 | XMS_ITS | Data Portability ---
Author Organization [employer] [place], [place] in [facility] Address [address] [place] [id number] Care Team Providers Care Ear Nose Throat Surgeon Name Role Phone HIM CCA OTHER AMBROSE JAMES Primary Care Provider [phone] Assessment Encounter Date Assessment Date Assessment LastModified [...] to allow for adequate healing. Precautions reviewed. [email or web address] Not available 10/07/2024 21:49:22 Plan of Treatment Reminders Order Date Submit Date Provider Last Modified By Organization Details Last Modified Time Details Appointments None recorded. Lab rapid flu (A+B) 2024 025 [email or web address] [facility], [address] [place] [address], [id number], 5 14:16:35 rapid SARS CoV 2 Ag, QL IA, respiratory specimen 2024 025 [email or web address] [facility], [address] [place] [address], [id number], 5 14:16:35 Referral None recorded. Procedures None recorded. Surgeries None recorded. Imaging None recorded. Medication Orders ipratropium 0.5 mg-albutero l 3 mg (2.5 mg base)/3 mL nebulizatio n soln 2024 025 [email or web address] [facility]/Pharmacy #[id number], [address] [place], [id number], 5 14:16:35 prednisone 10 mg tablet 2024 025 [facility]armacy #[id number], [address] [place], [address], 5 14:18:56 prednisone 20 mg tablet [email or web address]/Pharmacy #[id number], [address] [place], [address], 5 14:18:54 clotrimazol e 1 % topical cream 2023 024 [id number] [address] [place] [address], [id number], 4 20:06:27 Patient TargetsNo targets recorded. Patient [...] Name and Address Organization Details Recorded Time 66577 oxycodone medicatio n Not available Not available Not available 10/07/2024 7804 RxNorm Not Available [facility] - production 4 16:21:18 96546 latex environme nt,medica tion Not available Not available Not available 10/07/2024 54022 91 RxNorm Not Available [facility] - production [...] /min 140 mm[Hg] 82 mm[Hg] Not Available [facility] - production 4 20:04:20 Date Recorded Body weight Respiratory rate Heart rate Body height Oxygen saturation Oxygen saturation in Arterial blood by Pulse oximetry Body temperature Systolic blood pressure Diastolic blood pressure Provider Name and Address Organization Details Last Updated DateTime 5 99540.3 2 g 18 /min 68 /min 147.32 cm 96 % 96 % 98 [degF] 140 mm[Hg] 85 mm[Hg] Not Available [facility] - production 5 14:10:41 Social History None recorded. Functional Status None recorded. Mental Status None recorded. Family History Nothing Reported. Medical History No medical history recorded. Gynecological HistoryNo gynecological history recorded. Obstetrics History GPAL:G 0 P 0 0 0 0 Past Encounters Encounter ID Performer Location Encounter Start Date Encounter Closed Date Diagnosis/Indication Diagnosis SNOMED-CT Code Diagnosis ICD10 Code Diagnosis Note [id number] MAU RUFFIN MD Main - [facility] [address] [place] [id number] 10/07/2024 20:04:14 10/07/2024 23:05:27 Tinea corporis 28931692 B35.4 [id number] [facility] [address] [place] [id number] 11/02/2024 14:06:32 11/02/2024 22:25:51 Upper respiratory infection 86201320 J06.9 Evaluation in the field was performed by my manager special events colleague, as noted above, I provided real-time direction and supervisio n for this visit. 68yo F PMHx asthma p/w 2 weeks URI symptoms including cough, rhinorrhea , and increased wheezing without fevers, chest pain. Improved with inhalers. Reports she usually receives antibiotic s every year for this. Denies hx tobacco use. On manager special events eval VS sat 96% RA normal RR. [...] Taylor Member ID Guarantor Name 10/07/2024 1 [facility] - DOS ON OR AFTER 2023 - DUAL ELIGIBLE - ASSISTED OPTIONS AND ONE CARE (MEDICARE REPLACEMENT/ADV ANTAGE - HMO) Marita Murray [id number] Marita Murray 11/02/2024 1 [facility] - DOS ON OR AFTER 2023 - DUAL ELIGIBLE - ASSISTED OPTIONS AND ONE CARE (MEDICARE REPLACEMENT/ADV ANTAGE - HMO) Marita Murray [id number] Marita Murray Notes Date Note Type Note [...] .................... .................... .................... .................... .................... .................... . Milling Supervisor Note From Zaki Vega: Dispatched to the [...] .................... .................... .................... .................... .................... .................... . [facility] Consulted: Mau Ruffin .................... .................... .................... .................... .................... .................... .................... . Disposition: Fulfilled MAU RUFFIN MD [address] [facility],[address], [place], [address], [employer] [facility] [facility] 10/07/2024 21:49:34 11/02/2024 text/html CRC Nurse Triage [...] s/s and seek emergency treatment if needed. Milling Supervisor Organization Information for Yamile Cary [employer] Legal Name: [employer] Address: [address] [place] [address], [place] Heater Operator: Constantin Machado MD CLIA No.: [id number] Milling Supervisor POC Test Results from Luis Daniel [facility] Rapid influenza antigen (14:11:38) Flu: - Rapid COVID antigen (14:11:39) COVID: - .................... .................... .................... .................... .................... .................... .................... . Milling Supervisor Note From Yamile Cary: Sent to a [...] Duo neb administered; Lung sounds: clear bialterally; [facility] [place] and orders Prednisone 40mg PO. [facility] [place] script to pt's pharmacy. Prednisone 40mg PO administered. Pt advised to use symptomatic treatment as outlined. Red flags discussed. Pt has no further questions. .................... .................... .................... .................... .................... .................... .................... . [facility] Consulted: Sanam Russell .................... .................... .................... .................... .................... .................... .................... . Disposition: Fulfilled Sanam Russell MD [address] [facility],[address] [facility], [place], [address], ELENITA BRITTANY PEREZ 11/02/2024 16:46:28 OBGyn Episode No OBEpisode recorded.
--- OUTSIDE RECORDS SUMMARY | 2025-01-01 22:33 | XMS_ITS | Patient Health Record ---
Author Organization [facility] Address [address] [place] [address] Care Team Providers Care Block Handler Name Role Phone Adrianna Sharp Primary Care Provider Bin Salinas Unavailable [phone] Reason For Referral No Information Problems Problem Type SNOMED Code ICD Code Onset Dates Problem Status W/U Status Risk Notes Problem Gallstones (962378031) Gallstones (K80.20) Active confirmed Plan Of Treatment No Information Insurance Providers Payer Name Payer Address Payer Phone Subscriber Number Group Number Insured Name Patient Relationship to Insured Coverage Start Date Coverage End Date [place] [address] [place] [address] [id number] ISMAEL JUÁREZ Self - patient is the insured MEDICAID OF [facility] [address] [place] [address] [id number] ISMAEL JUÁREZ Self - patient is the insured [place] [address] [place] [address] [id number] ISMAEL JUÁREZ Self - patient is the insured [facility] [address] [place] [address] [id number] ISMAEL JUÁREZ Self - patient is the insured 3 Medical (General) History Medical History History ICD Code colon and egd 11-30-2009 history of anemia gastric polyp pernicious anemia
[2025-01-01 22:51] LABS: Alanine Aminotransferase 22 U/L (0-31); Alkaline Phosphatase 91 U/L (39-117); Anion Gap 13 (12-20); Aspartate Amino Transferase 26 U/L (5-31); Bilirubin Total 0.9 mg/dL (0.0-1.0); Blood Urea Nitrogen 15 mg/dL (9-16); Calcium 9.3 mg/dL (8.4-10.2); Carbon Dioxide 24 mmol/L (22-29); Chloride 108 mmol/L (96-108); Creatinine Clr Calc Pharmacy 61.8; Estimated Glomerular Filt Rate > 60; Glucose Random 86 mg/dL (60-115); Lipase 45 U/L (8-78); Potassium 3.8 mmol/L (3.3-5.1); Sodium 141 mmol/L (135-145); Total Protein 7.5 g/dL (6.5-8.0)
--- NOTE | 2025-01-01 23:02 | ED_ITS ---
HPI - Abdominal Pain General Chief Complaint: Abdominal Pain Stated Complaint: pain in stomach Time Seen by Provider: 01/01/25 23:02 Source: patient, RN notes reviewed and old records reviewed Mode of arrival: ambulatory History of Present Illness ED Provider: Yamile Mckenna PA-C HPI narrative: 69-year-old female with past medical history of CKD, obesity, HLD, arthritis, breast CA, HTN, asthma, depression, s/p cholecystectomy, presenting to the ED complaining epigastric abdominal pain since 1800 with associated nausea. Reports chronic SOB. Denies fever, chills, cough, chest pain, dysuria/hematuria, pedal edema Related Data Home Medications ?Medication ?Instructions ?Recorded ?Confirmed albuterol sulfate 90 mcg/actuation 2 inh inhalation Q4H PRN shortness 08/08/23 12/21/24 breath activated powder of breath or wheezing inhaler,sensor (Proair Digihaler) Previous Rx's ?Medication ?Instructions ?Recorded miscellaneous medical supply #1 ea 11/08/20 miscellaneous medical supply #1 ea 11/08/20 walker (Ultra-Light Rollator misc) #1 ea 11/08/20 nebulizers (AeroEclipse II #1 ea 09/04/22 Nebulizer) Advair HFA 230 mcg-21 2 puff inhalation Q12H #12 ea 06/30/23 mcg/actuation aerosol inhaler (fluticasone propion-salmeterol) CPAP (CPAP Machine/Device) #1 ea 11/03/23 showerhead #1 ea 12/10/23 atorvastatin 20 mg tablet 20 mg PO DAILY 90 days #90 tabs 03/25/24 lorazepam 0.5 mg tablet 1 mg (2 x 0.5 mg) PO DAILY PRN 06/06/24 anxiety 1 day #2 tabs cyanocobalamin (vitamin B-12) 1,000 mcg PO DAILY #90 tabs 07/11/24 1,000 mcg tablet (Vitamin B-12) colchicine 0.6 mg capsule 0.6 mg PO BID 2 days #4 caps 09/23/24 indomethacin 50 mg capsule 50 mg PO TID 5 days #15 caps 09/23/24 nystatin 100,000 unit/gram topical 1 appl topical BID PRN rash 2 10/10/24 cream weeks #30 grams furosemide 40 mg tablet 40 mg PO QAM #90 tabs 10/15/24 miconazole nitrate 2 % topical 1 appl topical BID 2 weeks #85 10/23/24 powder grams metoprolol succinate 25 mg 25 mg PO DAILY 90 days #90 tabs 11/02/24 tablet,extended release 24 hr albuterol sulfate 2.5 mg/3 mL 2.5 mg (3 mL) inhalation Q6H PRN 11/04/24 (0.083 %) solution for nebulization bronchospasm 30 days #75 mL oxycodone-acetaminophen 7.5 mg-325 1 tab PO Q8H PRN pain 30 days #90 12/20/24 mg tablet tabs buspirone 10 mg tablet 10 mg PO TID 30 days #90 tabs 12/21/24 commode #1 ea 12/21/24 escitalopram oxalate 20 mg tablet 20 mg PO BEDTIME 90 days #90 tabs 12/21/24 Allergies Allergy/AdvReac Type Severity Reaction Status Date / Time latex [LATEX] Allergy Intermediate RASH Verified 01/01/25 22:12 oxycodone AdvReac Severe Itching Verified 01/01/25 22:12 Review of Systems Review of Systems Yes all other systems are reviewed and are negative Constitutional: Reports as per [facility] Past Medical History Attestation statement: The following information was validated with the patient. Source: old records reviewed Medical History Severe major 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 psychotic features CKD (chronic kidney disease) stage 3, GFR 30-59 ml/min Acute hypoxemic respiratory failure Sepsis Acute kidney injury Abdominal pain Morbid obesity Gallstones Common bile duct dilation Elevated TSH Hair loss Murmur Moderate persistent asthma Morbid obesity Mild recurrent major depression B12 deficiency Hair loss Right hip pain Dyslipidemia Foot pain, bilateral Lumbar degenerative disc disease History of vitamin D deficiency History of pernicious anemia Arthritis Back pain History of trigger finger History of left bundle branch block (LBBB) On beta mel at home Breast cancer Mild aortic stenosis Sleep apnea Constipation Dizziness Tinnitus Chronic pain HTN (hypertension) Asthma Depression Surgical History History of cholecystectomy History of cardiac cath Hx of bilateral cataract extraction History of total right knee replacement (TKR) History of total left knee replacement (TKR) History of dilation and curettage Hx of colonoscopy Hx of esophagogastroduodenoscopy History of lymph node dissection of left axilla S/P lumpectomy, left breast Family History Family History Father Prostate cancer Hypertension Mother Skin cancer Dementia Diabetes Daughter Lupus Maternal Grandmother Diabetes Hypertension Maternal Grandfather No problems noted. Paternal Grandmother No problems noted. Paternal Grandfather Cancer Brother Prostate cancer Social History Social History Household Members: Spouse and Family Household Members Other:: Graddaughter Housing: House Do you presently have visiting nurse or other home services: Yes Alcohol intake: never Patient Tobacco Use Status: Never used Tobacco e-Cigarette/Vaping Use: Never Used Second Hand Smoke Exposure: No Substance Use Type: Marijuana Advance Directives Date on File: 08/05/22 service: No Current occupational status: disabled Cognitive needs: Yes Hearing needs: No Vision needs: Yes Physical Exam ED Vital Signs: Vital Signs - 24 hr 01/01/25 22:11 01/02/25 00:00 01/02/25 02:19 Temperature 98.5 F 97.8 F 97.4 F Pulse Rate 65 56 60 Respiratory Rate 16 16 12 Blood Pressure 122/57 L 135/54 L 127/58 L Pulse Oximetry 94 96 97 Oxygen Delivery Method Room Air Room Air Room Air 01/02/25 02:46 Temperature 97.4 F Pulse Rate 60 Respiratory Rate 12 Blood Pressure 127/58 L Pulse Oximetry 97 Oxygen Delivery Method Room Air BMI result Body Mass Index 40.4 Const General: cooperative, healthy appearing and no acute distress Orientation/consciousness: patient oriented x3 Limitations: no limitations HENMT Head: Yes normal to inspection and Yes atraumatic Ears: hearing grossly normal bilaterally General nose exam: Normal external nose present Face and sinus: Yes normal facial exam Eyes General: appearance normal, both eyes and all related structures EOM: EOMs intact bilaterally Neck Neck: Yes normal visual inspection and Yes no meningeal signs Resp Effort & Inspection: normal respiratory effort and no respiratory distress Auscultation: clear to auscultation bilaterally Cardio Rate: regular rate Heart sounds: S1 normal heart sound present and S2 normal heart sound present GI Inspection: Yes normal to inspection Palpation (GI): Soft to palpation, Tenderness to palpation present (GI) in the epigastrum; with no rebound tenderness, no guarding and not rigid General: Yes CVA tenderness on the left Back/Spine/Pelvis Back: CVA tenderness Skin Rashes: no rashes Wounds: no wounds Neuro General: patient oriented x3, tone normal and no meningeal signs Cranial nerves: Yes CN's II-XII intact bilaterally Gait exam (Neuro): Normal gait present Extrem General: Yes normal to inspection Course Course Course Narrative: -0052-- no leukocytosis, labs otherwise reassuring, initial trop neg > will obtain repeat CT abdomen pelvis w IV con IMPRESSION: No acute findings. -0139-- trop x2 neg, mi unlikely -viral testing negative Results discussed with patient including worrisome signs and symptoms and strict return precautions, and when to return to the emergency department. They verbalized understanding and feel safe for discharge at this time. Medical Decision Making Medical Decision Making [facility] Narrative: 69-year-old female with past medical history of CKD, obesity, HLD, arthritis, breast CA, HTN, asthma, depression, s/p cholecystectomy, presenting to the ED complaining epigastric abdominal pain since 1800 with associated nausea. On exam vital signs stable, NAD, nontoxic appearing, left CVAT noted. Abdomen is soft with epigastric tenderness, no rebound or guarding. Concern for atypical ACS vs pancreatitis vs GERD/gastritis vs ?renal stone. Lower suspicion for pyelo/UTI, dissection, appendicitis/diverticulitis or pneumonia Plan: EKG, labs, UA, CT AP, symptomatic remedies, re-evaluate Please refer to course for remaining clinical decision making, interpretation of labs/imaging results, and discussions with consultants and/or family members. Differential Diagnosis Differential Diagnoses: The differential diagnosis associated with the presentation includes As above Admission/Observation Consideration of admission/observation: Escalation of care including admission/observation considered Lab Data [facility] Lab Attestation statement: I reviewed the patient's lab results. 01/01/25 22:24 01/01/25 22:24 Labs: Lab Results 01/01/25 01/02/25 Range/Units 22:24 01:12 WBC 8.1 (4.8-10.8) X10*3/uL RBC 4.74 (4.20-5.50) X10*6/uL Hgb 12.1 (12.0-16.0) g/dl Hct 36.5 L (37.0-47.0) % MCV 77.0 L (80.0-98.0) fL MCH 25.5 L (27.0-33.0) pg MCHC 33.2 (31.0-35.0) g/dl RDW 15.5 (11.0-16.0) % Plt Count 234 (160-400) X10*3/uL MPV 9.0 L (9.4-12.3) fL Immature Gran % (Auto) 0.2 (0.0-0.4) % Neut % (Auto) 52.0 (45-73) % Lymph % (Auto) 37.7 (20-40) % Coleman % (Auto) 7.2 (2-11) % Eos % (Auto) 2.2 (0-4) % Baso % (Auto) 0.7 (0-2) % Lymph # (Auto) 3.1 (1.2-4.9) X10*3/uL Coleman # (Auto) 0.6 (0.1-1.2) X10*3/uL Eos # (Auto) 0.2 (0.0-0.4) X10*3/uL Baso # (Auto) 0.1 (0.0-0.2) X10*3/uL Abs Immat Gran (auto) 0.02 (0.00-0.03) X10*3/uL Absolute Neuts (auto) 4.2 (2.0-8.3) x10*3/uL Absolute Nucleated RBC 0.000 (0.0-0.012) X10*3/uL Nucleated RBC % (auto) 0.0 (0.0-0.2) /100WBC Sodium 141 (135-145) mmol/L Potassium 3.8 (3.3-5.1) mmol/L Chloride 108 (96-108) mmol/L Carbon Dioxide 24 (22-29) mmol/L Anion Gap 13 (12-20) BUN 15 (9-16) mg/dL Creatinine 0.82 (0.5-1.4) mg/dL Estim Creat Clear Calc 61.8 Estimated GFR > 60 Random Glucose 86 (60-115) mg/dL Calcium 9.3 (8.4-10.2) mg/dL Magnesium 1.7 (1.6-2.6) mg/dL Total Bilirubin 0.9 (0.0-1.0) mg/dL AST 26 (5-31) U/L ALT 22 (0-31) U/L Alkaline Phosphatase 91 (39-117) U/L Troponin I High Sens 4.5 D 3.7 (<3.5-17.0) ng/L Total Protein 7.5 (6.5-8.0) g/dL Albumin 4.0 (3.5-5.0) g/dL Lipase 45 (8-78) U/L Influenza Type A (PCR) NEGATIVE (Negative) Influenza Type B (PCR) NEGATIVE (Negative) RSV RNA Qual (PCR) NEGATIVE (Negative) SARS-CoV-2 RNA (RT-PCR) NEGATIVE (Negative) Independent Interpretation I performed an independent interpretation of an: EKG (My interpretation EKG normal sinus rhythm rate of 64. SD interval 128. Nonspecific T-wave abnormality has replaced inverted T-waves in anterior leads when compared to prior. No STEMI ) and CT Scan Radiology Impression Discussion of test interpretation with radiology: I have reviewed the radiologist's reading. External Record Review External record reviewed: Inpatient record, Office record, Outpatient record, Prior outpatient labs, Prior outpatient radiology, Primary care record and Outside ED record Tests considered The following testing was considered but not selected: As above Prescription Management I considered prescription management with: Pain Medication Chronic Conditions Patient?s care impacted by: Hypertension Social Determinants Patient?s care significantly limited by Social Determinants of Health including: Other Social Determinant of Health Medications Administered Discontinued Medications Generic Name Dose Route Start Last Admin Trade Name Freq PRN Reason Stop Dose Admin Al Hydroxide/Mg Hydroxide 30 ml 01/01/25 23:09 01/02/25 00:00 Magnesium Hydrox/Alum Hydrox 30 Ml Oral.Susp PO 01/01/25 23:10 30 ml ONCE ONE Administration Famotidine 20 mg 01/01/25 23:09 01/02/25 00:00 Famotidine/Pf 20 Mg/2 Ml Vial IVPUSH 01/01/25 23:10 20 mg ONCE ONE Administration Sodium Chloride 1,000 mls @ 999 mls/hr 01/01/25 23:15 01/02/25 01:10 Ns IV 01/02/25 00:15 Infused .Q1H1M SADIA Infusion Iohexol 85 ml 01/02/25 00:16 01/02/25 00:17 Iohexol 350 Mg/Ml 100 Ml Infus..Btl IV 01/02/25 00:17 85 ml ONCE ONE Administration Discharge Plan Discharge Clinical Impression: Epigastric abdominal pain Patient Disposition: Home, Self-Care Instructions: Epigastric Pain (ED) Additional Instructions: Your blood work is reassuring. Your CT scan is unremarkable Please have close follow up with her primary care doctor If her symptoms persist or worsen or your pain is unbearable/unremitting, you have chest pain, shortness of breath, nausea/vomiting or you are unable to eat or drink return to the ED Prescriptions: No Action (DME) miscellaneous medical supply Misc See Rx Instructions .ROUTE .MEDSUPPLY Qty: 1 0RF Rx Instructions: GRAB BAR 18 (DME) miscellaneous medical supply Misc See Rx Instructions .ROUTE .MEDSUPPLY Qty: 1 0RF Rx Instructions: toilet safety frame (DME) Ultra-Light Rollator Misc See Rx Instructions .ROUTE .MEDSUPPLY Qty: 1 0RF Rx Instructions: As directed (DME) nebulizers [AeroEclipse II Nebulizer] Misc See Rx Instructions .Route Qty: 1 0RF Rx Instructions: As directed Advair HFA 230-21 mcg/actuation HFA aerosol inhaler 2 puff inhalation Q12H Qty: 12 6RF (DME) CPAP Machine/Device Device See Rx Instructions .Route Qty: 1 0RF Rx Instructions: autoPAP 6-16 cmH2O (DME) showerhead See Rx Instructions .Route .MEDSUPPLY Qty: 1 0RF Rx Instructions: As directed atorvastatin 20 mg tablet 20 mg PO DAILY 90 Days Qty: 90 3RF lorazepam 0.5 mg tablet 1 mg PO DAILY PRN (Reason: anxiety) 1 Days Qty: 2 0RF cyanocobalamin (vitamin B-12) [Vitamin B-12] 1,000 mcg tablet 1,000 mcg PO DAILY Qty: 90 1RF nystatin 100,000 unit/gram cream 1 appl topical BID PRN (Reason: rash) 14 Days Qty: 30 0RF furosemide 40 mg tablet 40 mg PO QAM Qty: 90 2RF metoprolol succinate 25 mg tablet extended release 24 hr 25 mg PO DAILY 90 Days Qty: 90 3RF albuterol sulfate 2.5 mg /3 mL (0.083 %) solution for nebulization 2.5 mg inhalation Q6H PRN (Reason: bronchospasm) 30 Days Qty: 75 1RF oxycodone-acetaminophen 7.5-325 mg tablet 1 tab PO Q8H PRN (Reason: pain) 30 Days Qty: 90 0RF Rx Instructions: Partial Fill upon patient request. Proair Digihaler 90 mcg/actuation aero powdr breath act w/sensor 2 inh inhalation Q4H PRN (Reason: shortness of breath or wheezing) indomethacin 50 mg capsule 50 mg PO TID 5 Days Qty: 15 0RF Rx Instructions: administer with food or milk colchicine 0.6 mg capsule 0.6 mg PO BID 2 Days Qty: 4 0RF miconazole nitrate 2 % powder 1 appl topical BID 14 Days Qty: 85 0RF Rx Instructions: Until clinical resolution, typically 1-4 weeks (DME) commode Kit See Rx Instructions .Route Qty: 1 0RF Rx Instructions: As directed escitalopram oxalate 20 mg tablet 20 mg PO BEDTIME 90 Days Qty: 90 1RF buspirone 10 mg tablet 10 mg PO TID 30 Days Qty: 90 0RF Referrals: [facility] [place] [facility] [Provider Group] Adrianna Sharp MD [Primary Care Provider] - 3 days Interventions: ED Discharge Assessment Last Done: 01/02/25 02:46 Discharge Date/Time: 01/02/25 02:46 Print Language: Georgian
[2025-01-01 23:17] LABS: Magnesium 1.7 mg/dL (1.6-2.6)
[2025-01-01 23:29] LABS: Troponin-I High Sensitivity 4.5 ng/L (<3.5-17.0)
[2025-01-02] VITALS: BP 135/54; PULSE 56; RESP 16; TEMP 36.6; O2SAT 96
[2025-01-02] MEDS: 0.9 % Sodium Chloride 1,000 ML 999 ML IV
[2025-01-02] MEDS: Famotidine/PF 20 MG/2 ML VIAL IVPUSH
[2025-01-02] MEDS: Magnesium Hydrox/Alum Hydrox 30 ML ORAL.SUSP PO
--- NOTE | 2025-01-02 00:04 | PC.NURSE ---
IV placed, medicated per dec and notified Beatriz SANCHEZ
[2025-01-02] MEDS: iohexoL 350 MG/ML 100 ML INFUS..BTL 85 ML IV (00:17)
[2025-01-02 01:37] LABS: Troponin-I High Sensitivity 3.7 ng/L (<3.5-17.0)
[2025-01-02 01:55] LABS: Influenza A PCR NEGATIVE (Negative); Influenza B PCR NEGATIVE (Negative); Resp Syncy Virus RNA Qual PCR NEGATIVE (Negative); SARS COV2 PCR INHOUSE NEGATIVE (Negative)
[2025-01-02 02:19] VITALS: BP 127/58; PULSE 60; RESP 12; TEMP 36.3; O2SAT 97
[2025-01-02 02:46] VITALS: BP 127/58; PULSE 60; RESP 12; TEMP 36.3; O2SAT 97
== END 2025-01-02 02:46 | disposition home or self-care (01) ==
PROVIDERS: Physician Assistant; Emergency Provider Emergency Medicine; PCP Internal Medicine
DX: R10.13 Epigastric pain (principal); R06.02 Shortness of breath; E78.5 Hyperlipidemia, unspecified; I10 Essential (primary) hypertension; J45.909 Unspecified asthma, uncomplicated; Z03.818 Encounter for observation for suspected exposure to other biological agents ruled out; Z79.02 Long term (current) use of antithrombotics/antiplatelets; Z79.899 Other long term (current) drug therapy
CPT/HCPCS: 0241U; 36415; 74177; 80053; 83690; 83735; 84484; 85025; 93005; 96361; 96374; 99284; Q9967

== ENCOUNTER → 2025-01-01 22:17 | Outpatient (BNV) | payer OTHER, SELFPAY | PROVIDERS: Emergency Provider Emergency Medicine; PCP Internal Medicine; Visit Provider Internal Medicine | DX: I44.7 Left bundle-branch block, unspecified (principal) | CPT/HCPCS: 93010 ==

== ENCOUNTER → 2025-01-02 00:01 | Outpatient (BNV) | payer OTHER, SELFPAY | PROVIDERS: Emergency Provider Emergency Medicine; PCP Internal Medicine; Visit Provider Radiology Diagnostic Radiology | DX: R10.13 Epigastric pain (principal) | CPT/HCPCS: 74177 ==

== ENCOUNTER 2025-01-08 18:58 | Inpatient (IN) | payer OTHER, SELFPAY ==
--- NOTE | ~2025-01-08 | XR_ITS ---
CLINICAL HISTORY: SOB, chest pain Chest X-ray, 1 View COMPARISON: CR/VA/SR - XR CHEST 1V - 06/04/24 13:58 EDT FINDINGS: No consolidation. Mild bibasilar atelectasis. No pleural effusion. No pneumothorax. Stable mild cardiomegaly. No acute fracture. IMPRESSION: No acute findings. This document has been electronically signed by: Gerald Malcolm MD on 01/08/2025 21:18:18
[2025-01-08 19:14] VITALS: BP 118/60; PULSE 90; O2SAT 96
[2025-01-08 19:17] VITALS: BP 128/60; PULSE 91; RESP 24; TEMP 38.9; O2SAT 88; BMI 41.9
--- NOTE | 2025-01-08 19:22 | ED_ITS ---
HPI - General Adult General Chief complaint: Dyspnea Stated complaint: SOB AND CHEST TIGHTNESS X3 DAYS, FLU+ Time Seen by Provider: 01/08/25 19:22 Source: patient and EMS Mode of arrival: EMS Limitations: no limitations History of Present Illness ED Provider: Leelee Fernando PA-C HPI narrative: Patient is a 69 year old assigned female at with a history of anxiety, DORA on CPAP, asthma, depression, anemia, and low left ventricular EF, presenting to the emergency department today with shortness of breath, fever, and cough. Patient states that over the last 2 days she has had shortness of breath, fever, and productive cough. Patient states that she was told she has the flu but she is getting worse. Patient denies any dizziness, lightheadedness, abdominal pain, nausea, vomiting, chills, blurry vision, double vision, loss of vision, chest pain, back pain, night sweats, pain with urination, increased urinary frequency, increased urinary urgency, blood in her urine or stool, syncope or a near syncopal episode, recent trauma or falls, bowel incontinence, bladder incontinence, or any other complaints at this time. Onset (ago): day(s) (2) Relieving factors: none Exacerbating factors: none Associated symptoms: cough, fever/chills and shortness of breath Treatments prior to arrival: none Related Data Home Medications ?Medication ?Instructions ?Recorded ?Confirmed albuterol sulfate 90 mcg/actuation 2 inh inhalation Q4H PRN shortness 08/08/23 12/21/24 breath activated powder of breath or wheezing inhaler,sensor (Proair Digihaler) Previous Rx's ?Medication ?Instructions ?Recorded miscellaneous medical supply #1 ea 11/08/20 miscellaneous medical supply #1 ea 11/08/20 walker (Ultra-Light Rollator misc) #1 ea 11/08/20 nebulizers (AeroEclipse II #1 ea 09/04/22 Nebulizer) Advair HFA 230 mcg-21 2 puff inhalation Q12H #12 ea 06/30/23 mcg/actuation aerosol inhaler (fluticasone propion-salmeterol) CPAP (CPAP Machine/Device) #1 ea 11/03/23 showerhead #1 ea 12/10/23 atorvastatin 20 mg tablet 20 mg PO DAILY 90 days #90 tabs 03/25/24 lorazepam 0.5 mg tablet 1 mg (2 x 0.5 mg) PO DAILY PRN 06/06/24 anxiety 1 day #2 tabs cyanocobalamin (vitamin B-12) 1,000 mcg PO DAILY #90 tabs 07/11/24 1,000 mcg tablet (Vitamin B-12) colchicine 0.6 mg capsule 0.6 mg PO BID 2 days #4 caps 09/23/24 indomethacin 50 mg capsule 50 mg PO TID 5 days #15 caps 09/23/24 nystatin 100,000 unit/gram topical 1 appl topical BID PRN rash 2 10/10/24 cream weeks #30 grams furosemide 40 mg tablet 40 mg PO QAM #90 tabs 10/15/24 miconazole nitrate 2 % topical 1 appl topical BID 2 weeks #85 10/23/24 powder grams metoprolol succinate 25 mg 25 mg PO DAILY 90 days #90 tabs 11/02/24 tablet,extended release 24 hr albuterol sulfate 2.5 mg/3 mL 2.5 mg (3 mL) inhalation Q6H PRN 11/04/24 (0.083 %) solution for nebulization bronchospasm 30 days #75 mL oxycodone-acetaminophen 7.5 mg-325 1 tab PO Q8H PRN pain 30 days #90 12/20/24 mg tablet tabs buspirone 10 mg tablet 10 mg PO TID 30 days #90 tabs 12/21/24 commode #1 ea 12/21/24 escitalopram oxalate 20 mg tablet 20 mg PO BEDTIME 90 days #90 tabs 12/21/24 Allergies Allergy/AdvReac Type Severity Reaction Status Date / Time latex [LATEX] Allergy Intermediate RASH Verified 01/08/25 19:19 oxycodone AdvReac Severe Itching Verified 01/08/25 19:19 Review of Systems 2 Constitutional: Constitutional: Reports no additional constitutional complaints, Denies chills, Reports fever(s) and Denies night sweats Eyes: Eyes: Reports no additional eye complaints, Denies blurry vision, Denies change in vision, Denies diplopia, Denies eye discharge, Denies loss of vision and Denies eye pain ENT: Denies dizziness Cardiovascular: Cardiovascular: Reports no additional cardiovascular complaints, Denies chest pain, Denies lightheadedness, Denies Loss of Consciousness and Reports dyspnea Respiratory: Respiratory: Reports no additional respiratory complaints, Reports cough and Reports dyspnea Gastrointestinal: Gastrointestinal: Reports no additional gastrointestinal complaints, Denies abdominal pain, Denies melena, Denies hematochezia, Denies change in bowel habits and Denies change in stool character Genitourinary: Genitourinary: Denies hematuria, Denies urinary frequency, Denies dysuria, Denies urinary incontinence, Denies urinary hesitancy and Denies urinary urgency Musculoskeletal: Musculoskeletal: Reports no additional musculoskeletal complaints, Denies numbness and Denies tingling Neurologic: Denies dizziness, Denies loss of vision, Denies numbness and Denies tingling Psychiatric: Psychiatric: Reports no additional psychiatric complaints Endocrine: Endocrine: Reports no additional endocrine complaints Hematologic/Lymphatic: Hematologic/Lymphatic: Reports no additional hematologic/lymphatic complaints Allergic/Immunologic: Allergic/Immunologic: Reports no additional allergic/immunologic complaints [facility] Past Medical History Attestation statement: The following information was validated with the patient. 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 CKD (chronic kidney disease) stage 3, GFR 30-59 ml/min Acute hypoxemic respiratory failure Sepsis Acute kidney injury Morbid obesity Common bile duct dilation Elevated TSH Hair loss Murmur Mild recurrent major depression B12 deficiency Dyslipidemia Lumbar degenerative disc disease History of vitamin D deficiency History of pernicious anemia Arthritis History of trigger finger History of left bundle branch block (LBBB) On beta mel at home Breast cancer Mild aortic stenosis Sleep apnea Tinnitus Chronic pain HTN (hypertension) Asthma Depression Surgical History History of cholecystectomy History of cardiac cath Hx of bilateral cataract extraction History of total right knee replacement (TKR) History of total left knee replacement (TKR) History of dilation and curettage Hx of colonoscopy Hx of esophagogastroduodenoscopy History of lymph node dissection of left axilla S/P lumpectomy, left breast Family History Family History Father Prostate cancer Hypertension Mother Skin cancer Dementia Diabetes Daughter Lupus Maternal Grandmother Diabetes Hypertension Maternal Grandfather No problems noted. Paternal Grandmother No problems noted. Paternal Grandfather Cancer Brother Prostate cancer Social History Social History Household Members: Spouse and Family Household Members Other:: Graddaughter Housing: House Do you presently have visiting nurse or other home services: Yes Alcohol intake: never Patient Tobacco Use Status: Never used Tobacco Smoked in Last 30 Days: No e-Cigarette/Vaping Use: Never Used Second Hand Smoke Exposure: No Use of substances other than those prescribed or required for medical reasons: No Substance Use Type: Marijuana Advance Directives: Yes Advance Directives on File: Yes Advance Directives Date on File: 08/05/22 Nutrition Risks: No Nutritional Risk service: No Current occupational status: disabled Cognitive needs: Yes Hearing needs: No Vision needs: Yes Physical Exam ED Vital Signs: Vital Signs - 24 hr 01/08/25 19:17 01/08/25 19:23 01/08/25 19:38 Temperature 102.1 F H Pulse Rate 91 93 Respiratory Rate 24 H 24 H 20 Blood Pressure 128/60 Pulse Oximetry 88 L 96 Oxygen Delivery Method Room Air Nasal Cannula Oxygen Flow Rate 2 01/08/25 21:02 01/08/25 21:02 Temperature 101.4 F H 101.4 F H Pulse Rate Respiratory Rate Blood Pressure Pulse Oximetry 96 Oxygen Delivery Method Nasal Cannula Oxygen Flow Rate 2 BMI result Body Mass Index 41.9 Const General: cooperative, no acute distress, alert and awake Nutritional Appearance: well nourished Orientation/consciousness: patient oriented x3 Limitations: no limitations HENMT Head: Yes normal to inspection and Yes atraumatic Ears: hearing grossly normal bilaterally and external ears normal General nose exam: Normal external nose present, no nasal discharge noted and no epistaxis Face and sinus: Yes normal facial exam, No abrasion and No laceration Mouth: Normal oral and palatal mucosa present, no drooling and no muffled voice Eyes General: appearance normal, both eyes and all related structures Periorbital: periorbital findings normal Eyelids: Yes eyelids normal Conjunctivae: conjunctivae normal Pupils: Equal, round and reactive pupils present EOM: EOMs intact bilaterally Neck Neck: Yes normal visual inspection, Yes full ROM and Yes no lymphadenopathy Chest Chest palpation & inspection: normal inspection of the chest Resp Effort & Inspection: able to speak in complete sentences and labored Auscultation: wheezes scattered wheezes and throughout GI Inspection: Yes normal to inspection Neuro General: patient oriented x3, moves all extremities and CN's II-XI intact bilaterally Cranial nerves: Yes Equal, round and reactive pupils present Cognition (Neuro): normal cognition Extrem General: Yes normal to inspection, Yes full ROM and Yes capillary refill normal Psych Appearance: grossly normal Mental Status: mental status grossly normal Affect: normal affect Attitude: cooperative Thought process: Normal thought process present Thought content: Normal thought content present Insight: Good insight present (Psych) Medications Administered Generic Name Dose Route Start Last Admin Trade Name Frejun PRN Reason Stop Dose Admin Albuterol/Ipratropium 3 ml 01/08/25 21:13 01/09/25 03:22 Albuterol/Iprat 2.5/0.5mg 3 Ml Ampul.Neb INHALE 3 ml RQ4H WHILE AWAKE PRN Administration sob Oseltamivir Phosphate 75 mg 01/08/25 22:00 01/08/25 21:50 Oseltamivir Phosphate 75 Mg Capsule PO 01/13/25 10:01 75 mg Q12H SADIA Administration Sodium Chloride 3 ml 01/09/25 00:00 01/09/25 00:00 0.9 % Sodium Chloride Flush 3 Ml Syringe IVFLUSH Not Given QSHIFT SADIA Discontinued Medications Generic Name Dose Route Start Last Admin Trade Name Lisa PRN Reason Stop Dose Admin Acetaminophen 975 mg 01/08/25 19:23 01/08/25 19:49 Acetaminophen 325 Mg Tablet PO 01/08/25 19:24 975 mg ONCE ONE Administration Ceftriaxone Sodium 1 gm 01/08/25 20:39 01/08/25 20:58 Ceftriaxone Sodium 1 Gm Vial IVPUSH 01/08/25 20:40 1 gm ONCE ONE Administration Albuterol Sulfate 2.5 mg/ 0 mg 01/08/25 19:32 01/08/25 19:35 Albuterol/Ipratropium 3 ml INHALE 01/08/25 19:33 1 dose ONCE ONE Administration Azithromycin 500 mg/ Sodium 250 mls @ 125 mls/hr 01/08/25 20:39 01/09/25 03:24 Chloride IV 01/08/25 22:38 Infused ONCE ONE Infusion Methylprednisolone Sodium Succinate 60 mg 01/08/25 19:29 01/08/25 19:48 Methylprednisolone Sod Succ 125 Mg/2 Ml Vial IVPUSH 01/08/25 19:30 60 mg ONCE ONE Administration Medical Decision Making Medical Decision Making [facility] Narrative: Patient is a 69 year old assigned female at with a history of anxiety, DORA on CPAP, asthma, depression, anemia, and low left ventricular EF, presenting to the emergency department today with shortness of breath, fever, and cough. Patient's physical exam was as noted in the physical exam portion of this note. Patient was initially hypoxic at 88% on room air and febrile at 102.1. Patient's blood work was unremarkable. Patient's EKG was unremarkable. Patient's chest x- ray showed no acute process. Patient was given IV solu-medrol, PO Tylenol, a breathing treatment, and placed on 2 liters of oxygen via nasal canula which improved her symptoms some. Patient's influenza testing was positive. Patient was given IV ceftriaxone and azithromycin given her clinical presentation and history however, the patient is not considered septic as her fever is likely secondary to her influenza positive status (@2046). I spoke to the hospitalist team who agreed to admission. I explained my physical exam findings as well as all test results to the patient. I answered all questions asked by the patient. Patient verbalized agreement and understanding with this treatment plan and admission. Differential Diagnosis Differential Diagnoses: The differential diagnosis associated with the presentation includes Pneumonia Asthma exacerbation Influenza Hypoxia Admission/Observation Consideration of admission/observation: Escalation of care including admission/observation considered Patient admitted as noted in the MDM Rationale portion of this note. Consult Healthcare Provider Management of the patient was discussed with: Hospitalist (agreed to admission as noted in the MDM Rationale portion of this note. ) Lab Data [facility] Lab Attestation statement: I reviewed the patient's lab results. My interpretation of these results are in the MDM Rationale portion of this note. 01/09/25 05:05 01/09/25 05:05 Labs: Lab Results 01/08/25 01/08/25 01/08/25 Range/Units 19:24 19:41 19:48 WBC 7.8 (4.8-10.8) X10*3/uL RBC 4.95 (4.20-5.50) X10*6/uL Hgb 12.6 (12.0-16.0) g/dl Hct 38.7 (37.0-47.0) % MCV 78.2 L (80.0-98.0) fL MCH 25.5 L (27.0-33.0) pg MCHC 32.6 (31.0-35.0) g/dl RDW 16.0 (11.0-16.0) % Plt Count 165 D (160-400) X10*3/uL MPV 9.7 (9.4-12.3) fL Immature Gran % (Auto) 0.4 (0.0-0.4) % Neut % (Auto) 76.4 H (45-73) % Lymph % (Auto) 12.9 L (20-40) % Ford % (Auto) 5.3 (2-11) % Eos % (Auto) 4.5 H (0-4) % Baso % (Auto) 0.5 (0-2) % Lymph # (Auto) 1.0 L (1.2-4.9) X10*3/uL Ford # (Auto) 0.4 (0.1-1.2) X10*3/uL Eos # (Auto) 0.4 (0.0-0.4) X10*3/uL Baso # (Auto) 0.0 (0.0-0.2) X10*3/uL Abs Immat Gran (auto) 0.03 (0.00-0.03) X10*3/uL Absolute Neuts (auto) 6.0 (2.0-8.3) x10*3/uL Absolute Nucleated RBC 0.000 (0.0-0.012) X10*3/uL Nucleated RBC % (auto) 0.0 (0.0-0.2) /100WBC PT 13.3 H (10.9-12.4) SEC INR 1.1 (0.9-1.1) VBG pH 7.44 H (7.32-7.43) VBG pCO2 39 mmHg VBG pO2 63 mmHg VBG HCO3 27 H (22-26) mmol/L VBG O2 Saturation 92.0 % VBG Base Excess 3.2 mmol/L Sodium 136 (135-145) mmol/L Potassium 4.1 (3.3-5.1) mmol/L Chloride 103 (96-108) mmol/L Carbon Dioxide 23 (22-29) mmol/L Anion Gap 14 (12-20) BUN 12 (9-16) mg/dL Creatinine 0.88 (0.5-1.4) mg/dL Estim Creat Clear Calc 58.8 Estimated GFR > 60 Random Glucose 116 H (60-115) mg/dL Lactic Acid 1.6 (0.5-2.0) mmol/L Calcium 9.3 (8.4-10.2) mg/dL Magnesium 1.6 (1.6-2.6) mg/dL Total Bilirubin 1.4 H (0.0-1.0) mg/dL AST 41 H (5-31) U/L ALT 21 (0-31) U/L Alkaline Phosphatase 73 (39-117) U/L Troponin I High Sens 10.0 D (<3.5-17.0) ng/L Total Protein 8.0 (6.5-8.0) g/dL Albumin 3.9 (3.5-5.0) g/dL Influenza Type A (PCR) POSITIVE A (Negative) Influenza Type B (PCR) NEGATIVE (Negative) RSV RNA Qual (PCR) NEGATIVE (Negative) SARS-CoV-2 RNA (RT-PCR) NEGATIVE (Negative) Independent Interpretation I performed an independent interpretation of an: EKG and Plain X-Ray Interpretation: My interpretation is in agreement with the radiologist's impression of this imaging study. L CLINICAL HISTORY: SOB, chest pain Chest X-ray, 1 View COMPARISON: CR/DC/SR - XR CHEST 1V - 06/04/24 13:58 EDT FINDINGS: No consolidation. Mild bibasilar atelectasis. No pleural effusion. No pneumothorax. Stable mild cardiomegaly. No acute fracture. IMPRESSION: No acute findings. This document has been electronically signed by: Gerald Malcolm MD on 01/08/2025 21:18:18 Dictated By: Gerald Malcolm MD Signed By: Electronically signed by Gerald Malcolm MD 01/08/25 [id number] I independently interpreted this EKG and am in agreement with the below findings: Vent. Rate: 88 BPM Atrial Rate: 88 BPM P-R Int: 146 ms QRS Dur: 146 ms QT Int: 396 ms P-R-T Axes: 36 -11 157 degrees QTcB Int: 479 ms Sinus rhythm with Fusion complexes Left bundle branch block When compared with ECG of 01-Jan-2025 22:28, Fusion complexes are now Present DD/ 46 Radiology Impression Discussion of test interpretation with radiology: I have reviewed the radiologist's reading. Independent Historian Clinical information obtained from an independent historian. History obtained from or confirmed by: EMS (EMS provided additional history and confirmed the history provided by the patient. ) Critical Care Time Critical Care Time Critical Care Time: Yes Total Critical Care Time: 41 Attestation: I spent 41 minutes of Critical Care Time with this patient. This does not include time spent on separately reported billable procedures. Discharge Plan Discharge Clinical Impression: Hypoxia, Influenza
[2025-01-08 19:23] VITALS: RESP 24; O2SAT 96
--- NOTE | 2025-01-08 19:23 | ECG_ITS ---
Test Reason : CEPEDAJ Blood Pressure : */* mmHG Vent. Rate : 88 BPM Atrial Rate : 88 BPM P-R Int : 146 ms QRS Dur : 146 ms QT Int : 396 ms P-R-T Axes : 36 -11 157 degrees QTcB Int : 479 ms Sinus rhythm with Fusion complexes Left bundle branch block Abnormal ECG When compared with ECG of 01-Jan-2025 22:28, Fusion complexes are now Present Referred By: Leelee Fernando Electronically Signed By: VERN HIGGINS MD
[2025-01-08] MEDS: Albuterol Sulfate 2.5 MG, Albuterol/Iprat 2.5/0.5MG 3 ML 3 ML INHALE (19:35)
[2025-01-08 19:38] VITALS: PULSE 93; RESP 20; O2SAT 96
[2025-01-08] MEDS: methylPREDNISolone Sod Succ 125 MG/2 ML VIAL 60 MG IVPUSH (19:48)
[2025-01-08 19:49] LABS: MANUAL DIFF FLAG NO
[2025-01-08] MEDS: Acetaminophen 325 MG TABLET 975 MG PO (19:49)
[2025-01-08 19:50] LABS: Basophils Percent Auto 0.5 % (0-2); Eosinophils Absolute Auto 0.4 X10*3/uL (0.0-0.4); Eosinophils Percent Auto 4.5 % (0-4); Hematocrit 38.7 % (37.0-47.0); Hemoglobin 12.6 g/dl (12.0-16.0); Imm Gran Abs Auto 0.03 X10*3/uL (0.00-0.03); Imm Gran Pct Auto 0.4 % (0.0-0.4); Lymphocytes Percent Auto 12.9 % (20-40); Mean Corpuscular HGB Conc 32.6 g/dl (31.0-35.0); Mean Corpuscular Hemoglobin 25.5 pg (27.0-33.0); Mean Corpuscular Volume 78.2 fL (80.0-98.0); Mean Platelet Volume 9.7 fL (9.4-12.3); Monocytes Absolute Auto 0.4 X10*3/uL (0.1-1.2); Monocytes Percent Auto 5.3 % (2-11); Neutrophils Percent Auto 76.4 % (45-73); Platelet Count 165 X10*3/uL (160-400); Red Blood Count 4.95 X10*6/uL (4.20-5.50); White Blood Count 7.8 X10*3/uL (4.8-10.8)
[2025-01-08 19:52] LABS: VBG Base Excess 3.2 mmol/L; VBG HCO3 27 mmol/L (22-26); VBG pCO2 39 mmHg; VBG pH 7.44 (7.32-7.43); VBG pO2 63 mmHg
[2025-01-08 19:56] LABS: INTERNATIONAL NORM RATIO 1.1 (0.9-1.1); Prothrombin Time 13.3 SEC (10.9-12.4)
[2025-01-08 19:58] LABS: Venous Blood Gas Refer to POC result
[2025-01-08 20:05] LABS: Lactic Acid 1.6 mmol/L (0.5-2.0)
[2025-01-08 20:06] LABS: Influenza A PCR POSITIVE (Negative); Influenza B PCR NEGATIVE (Negative); Resp Syncy Virus RNA Qual PCR NEGATIVE (Negative); SARS COV2 PCR INHOUSE NEGATIVE (Negative)
[2025-01-08 20:07] LABS: Alanine Aminotransferase 21 U/L (0-31); Albumin Level 3.9 g/dL (3.5-5.0); Alkaline Phosphatase 73 U/L (39-117); Anion Gap 14 (12-20); Aspartate Amino Transferase 41 U/L (5-31); Bilirubin Total 1.4 mg/dL (0.0-1.0); Blood Urea Nitrogen 12 mg/dL (9-16); Calcium 9.3 mg/dL (8.4-10.2); Carbon Dioxide 23 mmol/L (22-29); Chloride 103 mmol/L (96-108); Creatinine Clr Calc Pharmacy 58.8; Estimated Glomerular Filt Rate > 60; Glucose Random 116 mg/dL (60-115); Magnesium 1.6 mg/dL (1.6-2.6); Potassium 4.1 mmol/L (3.3-5.1); Sodium 136 mmol/L (135-145)
[2025-01-08] MEDS: cefTRIAXone sodium 1 GM VIAL IVPUSH (20:58)
[2025-01-08 21:02] VITALS: TEMP 38.6; O2SAT 96
--- NOTE | 2025-01-08 21:16 | PM.IMHP ---
History of Present Illness Date of Service: 01/08/25 Chief Complaint: cough, fever 69F PMH put obesity with obesity restrictive lung disease, DORA, mood disorder, CHF with mildly reduced ejection fraction of 48% and grade 1 diastolic dysfunction, moderate persistent asthma presented with cough and fever. Patient states symptoms began 2 days prior to presentation with fever and productive cough chills and body aches. Also with shortness of breath, worse on exertion and positive orthopnea. Reports great granddaughter with similar symptoms. Denies chest pain, nausea vomiting or diarrhea. In ED found to be febrile and hypoxic on room air and positive flu. Review of Systems Review of Systems: Yes all other systems are reviewed and are negative [facility] Medical History Gallstones Elevated LFTs Cholecystitis with cholelithiasis Acute pancreatitis Constipation Colon cancer screening Abdominal pain Preoperative cardiovascular examination Acute hypokalemia Anemia Back pain Neck pain Foot pain, bilateral Left shoulder pain Right shoulder pain Right hip pain Wound drainage Dyspnea Encounter for preoperative pulmonary examination Right lower lobe pneumonia Bronchitis Pneumonia Dyspnea Moderate persistent asthma Dizziness Hair loss Severe major 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 psychotic features CKD (chronic kidney disease) stage 3, GFR 30-59 ml/min Acute hypoxemic respiratory failure Sepsis Acute kidney injury Morbid obesity Common bile duct dilation Elevated TSH Hair loss Murmur Mild recurrent major depression B12 deficiency Dyslipidemia Lumbar degenerative disc disease History of vitamin D deficiency History of pernicious anemia Arthritis History of trigger finger History of left bundle branch block (LBBB) On beta mel at home Breast cancer Mild aortic stenosis Sleep apnea Tinnitus Chronic pain HTN (hypertension) Asthma Depression Family History Father Prostate cancer Hypertension Mother Skin cancer Dementia Diabetes Daughter Lupus Maternal Grandmother Diabetes Hypertension Maternal Grandfather No problems noted. Paternal Grandmother No problems noted. Paternal Grandfather Cancer Brother Prostate cancer Surgical History History of cholecystectomy History of cardiac cath Hx of bilateral cataract extraction History of total right knee replacement (TKR) History of total left knee replacement (TKR) History of dilation and curettage Hx of colonoscopy Hx of esophagogastroduodenoscopy History of lymph node dissection of left axilla S/P lumpectomy, left breast Social History Household Members: Spouse and Family Household Members Other:: Graddaughter Housing: House Do you presently have visiting nurse or other home services: Yes Alcohol intake: never Patient Tobacco Use Status: Never used Tobacco Smoked in Last 30 Days: No e-Cigarette/Vaping Use: Never Used Second Hand Smoke Exposure: No Use of substances other than those prescribed or required for medical reasons: No Substance Use Type: Marijuana Advance Directives: Yes Advance Directives on File: Yes Advance Directives Date on File: 08/05/22 service: No Current occupational status: disabled Cognitive needs: Yes Hearing needs: No Vision needs: Yes Meds Allergies Allergy/AdvReac Type Severity Reaction Status Date / Time latex [LATEX] Allergy Intermediate RASH Verified 01/08/25 19:19 oxycodone AdvReac Severe Itching Verified 01/08/25 19:19 Active Medications: Current Medications Acetaminophen (Acetaminophen 325 Mg Tablet) 650 mg PO Q6H PRN PRN Reason: Pain, Mild 1-3,fever,headache Albuterol/Ipratropium (Albuterol/Iprat 2.5/0.5mg 3 Ml Ampul.Neb) 3 ml INHALE RQ4H WHILE AWAKE PRN PRN Reason: sob Calcium Carbonate (Calcium Carbonate 750 Mg Tab.Chew) 750 mg PO Q4H PRN PRN Reason: Heartburn Enoxaparin Sodium (Enoxaparin Sodium 40 Mg/0.4 Ml Syringe) 40 mg SUBCUT Q24H SADIA Azithromycin 500 mg/ Sodium (Chloride) 250 mls @ 125 mls/hr IV ONCE ONE Stop: 01/08/25 22:38 Magnesium Hydroxide (Milk Of Magnesia 30 Ml Oral.Susp) 30 ml PO DAILY PRN PRN Reason: Constipation Melatonin (Melatonin 3 Mg Tablet) 6 mg PO BEDTIME PRN PRN Reason: Insomnia Methylprednisolone Sodium Succinate (Methylprednisolone Sod Succ 40 Mg/Ml Vial) 40 mg IVPUSH Q12H SADIA Oseltamivir Phosphate (Oseltamivir Phosphate 75 Mg Capsule) 75 mg PO Q12H SADIA Stop: 01/13/25 09:16 Sodium Chloride (0.9 % Sodium Chloride Flush 3 Ml Syringe) 3 ml IVFLUSH QSHIFT [facility] Home Medications ?Medication ?Instructions ?Recorded ?Confirmed ?Last Taken ?Type albuterol sulfate 90 mcg/actuation 2 inh inhalation Q4H PRN shortness 08/08/23 12/21/24 Unknown History breath activated powder of breath or wheezing inhaler,sensor (Proair Digihaler) Physical Exam Vital Signs and Narrative: Vital Signs: Last Vital Signs Temp 101.4 F H 01/08/25 21:02 Pulse 93 01/08/25 19:38 Resp 20 01/08/25 19:38 BP 128/60 01/08/25 19:17 Pulse Ox 96 01/08/25 21:02 O2 Del Method Nasal Cannula 01/08/25 21:02 O2 Flow Rate 2 01/08/25 21:02 BMI result Body Mass Index 41.9 General: AO X 3, no acute distress Resp: wheezing bilateral, no accessory muscles used CVS: S1,S2,RRR GI: soft, non tender, non distended Neuro: motor grossly intact, alert Psych: appropriate affect, appropriate insight Results Labs 01/08/25 19:41 01/08/25 19:41 Labs: Laboratory Results - last 24 hr 01/08/25 01/08/25 01/08/25 19:24 19:41 19:48 MCV 78.2 L MCH 25.5 L MCHC 32.6 RDW 16.0 Plt Count 165 D MPV 9.7 Immature Gran % (Auto) 0.4 Neut % (Auto) 76.4 H Lymph % (Auto) 12.9 L [place] % (Auto) 5.3 Eos % (Auto) 4.5 H Baso % (Auto) 0.5 Lymph # (Auto) 1.0 L [place] # (Auto) 0.4 Eos # (Auto) 0.4 Baso # (Auto) 0.0 Abs Immat Gran (auto) 0.03 Absolute Neuts (auto) 6.0 Absolute Nucleated RBC 0.000 Nucleated RBC % (auto) 0.0 PT 13.3 H INR 1.1 VBG pH 7.44 H VBG pCO2 39 VBG pO2 63 VBG HCO3 27 H VBG O2 Saturation 92.0 VBG Base Excess 3.2 Anion Gap 14 Estim Creat Clear Calc 58.8 Estimated GFR > 60 Random Glucose 116 H Lactic Acid 1.6 Calcium 9.3 Magnesium 1.6 Total Bilirubin 1.4 H AST 41 H ALT 21 Alkaline Phosphatase 73 Total Protein 8.0 Albumin 3.9 Influenza Type A (PCR) POSITIVE A Influenza Type B (PCR) NEGATIVE RSV RNA Qual (PCR) NEGATIVE SARS-CoV-2 RNA (RT-PCR) NEGATIVE Assessment and Plan (1) DORA on CPAP: Status: Acute Plan 69F PMH morbid obesity with obesity restrictive lung disease, DORA, mood disorder, CHF with mildly reduced ejection fraction of 48% and grade 1 diastolic dysfunction, moderate persistent asthma presented with cough and fever Viral sepsis and acute hypoxic respiratory failure secondary to influenza a complicated by moderate persistent asthma with acute decompensation Tamiflu, IV steroids, DuoNebs, wean O2 as tolerated Received ceftriaxone azithromycin in ED, will hold off on further antibiotics unless evidence of superimposed bacterial infection DORA CPAP at night Morbid obesity Weight loss recommended Mood disorder Continue buspirone, Lexapro CHF with reduced ejection fraction Continued maintenance Lasix, Toprol DVT prophylaxis Lovenox Full Code Patient with flu resulting in viral sepsis and hypoxia therefore expected require at least 2 midnights inpatient Quality Stroke Does the patient have a stroke diagnosis?: No VTE Prior VTE?: No VTE Risk Level:: Medical - moderate - high VTE Device Contraindication: N/A - Device Ordered VTE Drug Contraindication: Treatment Not Indicated
[2025-01-08] MEDS: Azithromycin 500 MG in 0.9 % Sodium Chloride 250 ML 125 MG IV (21:44)
[2025-01-08] MEDS: Oseltamivir Phosphate 75 MG CAPSULE PO (21:50)
--- NOTE | 2025-01-08 23:20 | PC.NURSE ---
Pt placed on nighttime CPAP per respiratory
[2025-01-09] VITALS (12 sets, daily range): BP systolic 109–131; BP diastolic 56–74; PULSE 62–91; RESP 16–20; TEMP 36.2–37.4; O2SAT 91–100
--- NOTE | 2025-01-09 03:21 | PC.NURSE ---
Resumed care of patient at 0300. She was assisted to the bathroom by this RN. She is noted to have increased WOB, with audible wheezing. Breathing treatment given upon return to bed. Pt was very warm and sweaty, oral temp checked, 98F at this time. New gown and bed change provided at this time
[2025-01-09] MEDS: Albuterol/Iprat 2.5/0.5MG 3 ML AMPUL.NEB INHALE ×3 (03:22→21:44)
[2025-01-09 05:26] LABS: Hematocrit 38.5 % (37.0-47.0); Hemoglobin 12.1 g/dl (12.0-16.0); Mean Corpuscular HGB Conc 31.4 g/dl (31.0-35.0); Mean Corpuscular Hemoglobin 25.3 pg (27.0-33.0); Mean Corpuscular Volume 80.5 fL (80.0-98.0); Mean Platelet Volume 9.7 fL (9.4-12.3); Platelet Count 153 X10*3/uL (160-400); Red Blood Count 4.78 X10*6/uL (4.20-5.50); Red Cell Distribution Width 16.3 % (11.0-16.0); White Blood Count 8.3 X10*3/uL (4.8-10.8)
[2025-01-09 05:42] LABS: Anion Gap 15 (12-20); Blood Urea Nitrogen 14 mg/dL (9-16); Calcium 9.1 mg/dL (8.4-10.2); Carbon Dioxide 23 mmol/L (22-29); Chloride 104 mmol/L (96-108); Creatinine Clr Calc Pharmacy 51.8; Estimated Glomerular Filt Rate 55; Glucose Random 259 mg/dL (60-115); Magnesium 1.8 mg/dL (1.6-2.6); Sodium 138 mmol/L (135-145)
--- NOTE | 2025-01-09 07:24 | P.PNIM_ITS ---
Subjective Subjective Date of Service: 01/09/25 Interval History: f/u on acute respiratory distress d/t influenza, athma exacerbaion still feels sob, congested Physical Exam 2 Vital Signs: Vital Signs: Last Vital Signs Temp 98.7 F 01/09/25 04:51 Pulse 75 01/09/25 04:51 Resp 20 01/09/25 04:51 BP 125/60 01/09/25 04:51 Pulse Ox 94 01/09/25 04:51 O2 Del Method CPAP 01/09/25 04:51 O2 Flow Rate 2 01/09/25 04:51 BMI result Body Mass Index 41.9 Const: Other: General: AO X 3, no acute distress Resp: exp/ins wheezing, rhochi yary, mild extra effort CVS: S1,S2,RRR GI: +BS, NT, no distention Skin: No rash Neuro: motor grossly intact Psych: appropriate affect Objective Data Active Medications Acetaminophen (Acetaminophen 325 Mg Tablet) 650 mg PO Q6H PRN PRN Reason: Pain, Mild 1-3,fever,headache Albuterol/Ipratropium (Albuterol/Iprat 2.5/0.5mg 3 Ml Ampul.Neb) 3 ml INHALE RQ4H WHILE AWAKE PRN PRN Reason: sob Last Admin: 01/09/25 03:22 Dose: 3 ml Documented By: KEVAN Buspirone HCl (Buspirone Hcl 10 Mg Tablet) 10 mg PO TID SADIA Calcium Carbonate (Calcium Carbonate 750 Mg Tab.Chew) 750 mg PO Q4H PRN PRN Reason: Heartburn Enoxaparin Sodium (Enoxaparin Sodium 40 Mg/0.4 Ml Syringe) 40 mg SUBCUT Q24H SADIA Escitalopram Oxalate (Escitalopram Oxalate 20 Mg Tablet) 20 mg PO DAILY SADIA Furosemide (Furosemide 40 Mg Tablet) 40 mg PO DAILY SADIA; Protocol Magnesium Hydroxide (Milk Of Magnesia 30 Ml Oral.Susp) 30 ml PO DAILY PRN PRN Reason: Constipation Melatonin (Melatonin 3 Mg Tablet) 6 mg PO BEDTIME PRN PRN Reason: Insomnia Methylprednisolone Sodium Succinate (Methylprednisolone Sod Succ 40 Mg/Ml Vial) 40 mg IVPUSH Q12H SADIA Metoprolol Succinate (Metoprolol Succinate Er 25 Mg Tab.Er.24h) 25 mg PO DAILY SADIA; Protocol Oseltamivir Phosphate (Oseltamivir Phosphate 75 Mg Capsule) 75 mg PO Q12H [facility] Stop: 01/13/25 10:01 Last Admin: 01/08/25 21:50 Dose: 75 mg Documented By: LAYTON Oxycodone HCl (Oxycodone Hcl Immed Release 5 Mg Tablet) 5 mg PO Q6H PRN PRN Reason: Pain, Severe (Pain Scale 7-10) Sodium Chloride (0.9 % Sodium Chloride Flush 3 Ml Syringe) 3 ml IVFLUSH QSHIFT [facility] Last Admin: 01/09/25 00:00 Dose: Not Given Documented By: EDDIE Non-Admin Reason: IV Running Labs 01/09/25 05:05 01/09/25 05:05 Labs: Laboratory Results - last 24 hr 01/08/25 01/08/25 01/08/25 19:24 19:41 19:48 MCV 78.2 L MCH 25.5 L MCHC 32.6 RDW 16.0 Plt Count 165 D MPV 9.7 Immature Gran % (Auto) 0.4 Neut % (Auto) 76.4 H Lymph % (Auto) 12.9 L [place] % (Auto) 5.3 Eos % (Auto) 4.5 H Baso % (Auto) 0.5 Lymph # (Auto) 1.0 L [place] # (Auto) 0.4 Eos # (Auto) 0.4 Baso # (Auto) 0.0 Abs Immat Gran (auto) 0.03 Absolute Neuts (auto) 6.0 Absolute Nucleated RBC 0.000 Nucleated RBC % (auto) 0.0 PT 13.3 H INR 1.1 VBG pH 7.44 H VBG pCO2 39 VBG pO2 63 VBG HCO3 27 H VBG O2 Saturation 92.0 VBG Base Excess 3.2 Anion Gap 14 Estim Creat Clear Calc 58.8 Estimated GFR > 60 Random Glucose 116 H Lactic Acid 1.6 Calcium 9.3 Magnesium 1.6 Total Bilirubin 1.4 H AST 41 H ALT 21 Alkaline Phosphatase 73 Total Protein 8.0 Albumin 3.9 Influenza Type A (PCR) POSITIVE A Influenza Type B (PCR) NEGATIVE RSV RNA Qual (PCR) NEGATIVE SARS-CoV-2 RNA (RT-PCR) NEGATIVE 01/09/25 05:05 MCV 80.5 MCH 25.3 L MCHC 31.4 RDW 16.3 H Plt Count 153 L MPV 9.7 Immature Gran % (Auto) Neut % (Auto) Lymph % (Auto) [place] % (Auto) Eos % (Auto) Baso % (Auto) Lymph # (Auto) [place] # (Auto) Eos # (Auto) Baso # (Auto) Abs Immat Gran (auto) Absolute Neuts (auto) Absolute Nucleated RBC 0.000 Nucleated RBC % (auto) 0.0 PT INR VBG pH VBG pCO2 VBG pO2 VBG HCO3 VBG O2 Saturation VBG Base Excess Anion Gap 15 Estim Creat Clear Calc 51.8 Estimated GFR 55 Random Glucose 259 H Lactic Acid Calcium 9.1 Magnesium 1.8 Total Bilirubin AST ALT Alkaline Phosphatase Total Protein Albumin Influenza Type A (PCR) Influenza Type B (PCR) RSV RNA Qual (PCR) SARS-CoV-2 RNA (RT-PCR) Assessment and Plan (1) Influenza: Status: Acute (2) Hypoxia: Status: Acute (3) Asthma: Status: Acute Plan 69F PMH morbid obesity with obesity restrictive lung disease, DORA, mood disorder, CHF with mildly reduced ejection fraction of 48% and grade 1 diastolic dysfunction, moderate persistent asthma presented with cough and fever Viral sepsis and acute hypoxic respiratory failure secondary to influenza a complicated by moderate persistent asthma with acute exacerbation Tamiflu, IV steroids (change to PO Prednisone tomorrow), DuoNebs, wean O2 as tolerated Received ceftriaxone azithromycin in ED, will hold off on further antibiotics unless evidence of superimposed bacterial infection, Doxy if fever recur DORA CPAP at night Morbid obesity Weight loss recommended Mood disorder Continue buspirone, Lexapro CHF with reduced ejection fraction Continued maintenance Lasix, Toprol DVT prophylaxis Lovenox Full Code Patient with flu resulting in viral sepsis and hypoxia therefore expected require at least 2 midnights inpatient med rec pending Quality Stroke Does the patient have a stroke diagnosis?: No VTE Prior VTE?: No VTE Risk Level:: Medical - moderate - high VTE Device Contraindication: N/A - Device Ordered VTE Drug Contraindication: Treatment Not Indicated
[2025-01-09] MEDS: Metoprolol Succinate ER 25 MG TAB.ER.24H PO (08:27)
[2025-01-09] MEDS: Enoxaparin Sodium 40 MG/0.4 ML SYRINGE SUBCUT (08:27)
[2025-01-09] MEDS: methylPREDNISolone Sod Succ 40 MG/ML VIAL IVPUSH ×2 (08:27→21:44)
[2025-01-09] MEDS: 0.9 % Sodium Chloride Flush 3 ML SYRINGE IVFLUSH ×3 (08:28→21:47)
[2025-01-09] MEDS: Escitalopram Oxalate 20 MG TABLET PO (08:28)
[2025-01-09] MEDS: Furosemide 40 MG TABLET PO (08:28)
[2025-01-09] MEDS: busPIRone HCl 10 MG TABLET PO ×3 (08:28→21:44)
--- NOTE | 2025-01-09 08:40 | PHA.MEDREC ---
Addendum entered by Dhaval Ramirez 01/09/25 10:05: reviewed Original Note: Pharmacy Consult ? Medication Reconciliation Pharmacy has completed the medication reconciliation. Spoke to pt to confirm meds. Per pt, takes buspirone only once daily. Also takes atorvastatin, lorazepam, and advair although no recent claims.
[2025-01-09] MEDS: Acetaminophen 325 MG TABLET 650 MG PO (11:23)
[2025-01-09] MEDS: Oseltamivir Phosphate 75 MG CAPSULE PO ×2 (11:23→21:44)
--- NOTE | 2025-01-09 15:31 | MHC.CM.PN ---
PT ACTIVE WITH [facility] AND HAS A STEP DOWN NURSE PT LIVES WITH HGUSBAND HAS OWN RIDE HOME T/M LEFT FOR REQUESTING A CALL BACK TO VERIFY IMFORMATION FROM EMR PT ON DROPLET PRECAUTIONSW/FLU
--- NOTE | 2025-01-09 18:51 | PC.NURSE ---
This RN reached out to the MD who verbally agreed to DC urine order
--- NOTE | 2025-01-09 19:42 | PC.NURSE ---
Report taken from Dafne RN, assumed care of pt at this time. Pt A&Ox3 skin pwd respirations even unlabored. Denies pain, offers no complaints. Phone provided to update family. Pt awaiting bed assignment for admission, aware of plan of care. Will continue to monitor for additional needs.
[2025-01-10] MEDS: Melatonin 3 MG TABLET 6 MG PO (01:21)
[2025-01-10 01:34] LABS: Appearance Urine Cloudy; Color Urine Yellow; Glucose Urine UA Negative (Negative); Leukocyte Esterase Urine Negative (Negative); Nitrite Urine Negative (Negative); Specific Gravity - Urine 1.025 (1.005-1.025); Urine Blood Negative (Negative); Urine Ketones Trace mg/dL (Negative); Urine Protein Trace mg/dL (Neg-Trace)
--- NOTE | 2025-01-10 01:42 | PC.NURSE ---
Pt reporting difficulty sleeping- Melatonin PRN admin per DEC. Pt offers no additional complaints. Continues to await bed assignment for admission, aware of plan of care.
--- NOTE | 2025-01-10 02:56 | PC.NURSE ---
Pt resting in bed eyes closed, NAD. Positive effect from previously administered melatonin.
[2025-01-10 04:00] VITALS: RESP 18
--- NOTE | 2025-01-10 05:55 | PC.NURSE ---
Pt up to bedside commode with minimal assist. Back to bed without incident. Offers no complaints, continues to await bed assignment for admission, aware of plan of care.
--- NOTE | 2025-01-10 07:17 | PC.NURSE ---
Report given to Sathya SANCHEZ, pt exits my care at this time.
[2025-01-10 08:17] VITALS: BP 132/78; PULSE 68; RESP 14; TEMP 36.8; O2SAT 93
--- NOTE | 2025-01-10 09:11 | PM.DS ---
DS: Providers Provider Date of Service: 01/10/25 Date of admission: 01/08/25 21:14 Date of discharge: 01/10/25 Primary care physician: Adrianna Richter MD DS: Diagnosis Discharge Diagnosis (1) Influenza: Status: Acute (2) Hypoxia: Status: Acute (3) Asthma: Status: Acute DS: Summary Hospital Course Hospital Course: admission hpi Chief Complaint: cough, fever 69F PMH put obesity with obesity restrictive lung disease, DORA, mood disorder, CHF with mildly reduced ejection fraction of 48% and grade 1 diastolic dysfunction, moderate persistent asthma presented with cough and fever. Patient states symptoms began 2 days prior to presentation with fever and productive cough chills and body aches. Also with shortness of breath, worse on exertion and positive orthopnea. Reports great granddaughter with similar symptoms. Denies chest pain, nausea vomiting or diarrhea. In ED found to be febrile and hypoxic on room air and positive flu. hospital course: The patient presented with cough, fever, shortness of breath, and general malaise. She was diagnosed with influenza A, which exacerbated her asthma. She was admitted and treated with IV Solu-Medrol, nebulized bronchodilators, and Tamiflu for influenza. She has significantly improved, is no longer hypoxic, and will be discharged to complete a 5-day course of oral Prednisone. She is comfortable wit the discharge plan Time Attestation Discharge Coordination Time (in mins): 40 Quality: Safe Use of Opioids Does Pt have an Active Cancer Diagnosis on the Problem List?: No Quality: Stroke Does the patient have a stroke diagnosis?: No Physical Exam Vital Signs: Vital Signs: Last Vital Signs Temp 98.3 F 01/10/25 08:17 Pulse 68 01/10/25 08:17 Resp 14 01/10/25 08:17 BP 132/78 01/10/25 08:17 Pulse Ox 93 01/10/25 08:17 O2 Del Method Room Air 01/10/25 08:17 O2 Flow Rate 2 01/09/25 04:51 BMI result Body Mass Index 41.9 General: AO X 3, no acute distress Resp: CTA bilateral CVS: S1,S2,RRR GI: +BS, NT, no distention Skin: No rash Neuro: motor grossly intact Psych: appropriate affect DS: Data Data Completed and Pending Labs on day of discharge: Laboratory Results - last 24 hr 01/10/25 01:27 Urine Color Yellow Urine Appearance Cloudy Urine pH 6.0 Ur Specific Martinez 1.025 Urine Protein Trace Urine Glucose (UA) Negative Urine Ketones Trace Urine Blood Negative Urine Nitrite Negative Ur Leukocyte Esterase Negative Preliminary micro results at discharge 01/08/25 20:41 Blood Culture - Preliminary Blood - Venous No growth after 24 hours. 01/08/25 19:41 Blood Culture - Preliminary Blood - Venous No growth after 24 hours. Discharge Plan Discharge Anticipated Discharge Date/Time: 01/10/25 09:06 Patient Disposition: Home, Self-Care Discharge Diagnosis: Ashtma exacercerbation due to influenza A Referrals: Adrianna Sharp MD [Primary Care Provider] - 1 Week Discharge Medications: New prednisone 20 mg Tablet 40 mg PO DAILY Qty: 3 0RF oseltamivir [Tamiflu] 75 mg Capsule 75 mg PO Q12H Qty: 6 0RF Continued (DME) miscellaneous medical supply [facility] See Rx Instructions .ROUTE .MEDSUPPLY Qty: 1 0RF Rx Instructions: GRAB BAR 18 (DME) miscellaneous medical supply [facility] See Rx Instructions .ROUTE .MEDSUPPLY Qty: 1 0RF Rx Instructions: toilet safety frame (DME) Ultra-Light Rollator Mis See Rx Instructions .ROUTE .MEDSUPPLY Qty: 1 0RF Rx Instructions: As directed (DME) nebulizers [AeroEclipse II Nebulizer] [facility] See Rx Instructions .Route Qty: 1 0RF Rx Instructions: As directed Advair HFA 230-21 mcg/actuation HFA aerosol inhaler 2 puff inhalation Q12H Qty: 12 6RF (DME) CPAP Machine/Device Device See Rx Instructions .Route Qty: 1 0RF Rx Instructions: autoPAP 6-16 cmH2O (DME) showerhead See Rx Instructions .Route .MEDSUPPLY Qty: 1 0RF Rx Instructions: As directed atorvastatin 20 mg tablet 20 mg PO DAILY 90 Days Qty: 90 3RF cyanocobalamin (vitamin B-12) [Vitamin B-12] 1,000 mcg tablet 1,000 mcg PO DAILY Qty: 90 1RF nystatin 100,000 unit/gram cream 1 appl topical BID PRN (Reason: rash) 14 Days Qty: 30 0RF metoprolol succinate 25 mg tablet extended release 24 hr 25 mg PO DAILY 90 Days Qty: 90 3RF albuterol sulfate 2.5 mg /3 mL (0.083 %) solution for nebulization 2.5 mg inhalation Q6H PRN (Reason: bronchospasm) 30 Days Qty: 75 1RF oxycodone-acetaminophen 7.5-325 mg tablet 1 tab PO Q8H PRN (Reason: pain) 30 Days Qty: 90 0RF Rx Instructions: Partial Fill upon patient request. Proair Digihaler 90 mcg/actuation aero powdr breath act w/sensor 2 inh inhalation Q4H PRN (Reason: shortness of breath or wheezing) furosemide 40 mg tablet 40 mg PO DAILY lorazepam 0.5 mg tablet 0.5 mg PO DAILY PRN (Reason: anxiety) buspirone 10 mg tablet 10 mg PO DAILY (DME) commode Kit See Rx Instructions .Route Qty: 1 0RF Rx Instructions: As directed escitalopram oxalate 20 mg tablet 20 mg PO BEDTIME 90 Days Qty: 90 1RF Discharge Orders: Discharge Order (Routine); Ordered 01/10/25 Ordered By: Navneet Martínez Diet: Advance to usual diet Activity on Discharge: As tolerated Stand Alone Forms: Patient Portal Discharge page Print Language: Uzbek Care Plan Goals: recovery from asthma exacerbation due to influenza Health Concerns: athma influenza Plan of Treatment: Take Prednisone for 3 more dasys take Tamiflu for influenza Follow up with your docotor in a week, call for appointment Assessment: see above
[2025-01-10] MEDS: Albuterol/Iprat 2.5/0.5MG 3 ML AMPUL.NEB INHALE (09:42)
[2025-01-10 09:44] VITALS: PULSE 74; RESP 18; O2SAT 93
[2025-01-10 10:31] VITALS: BP 137/84; PULSE 88; RESP 20; TEMP 37.1; O2SAT 94
--- NOTE | 2025-01-10 14:00 | MHC.CM.PN ---
Addendum entered by Shameka Hilton 01/10/25 14:40: CM SPOKE TO JUSTIN AT [facility], SHE REQUESTED DCS BE FAXED TO [phone] DCS AND H&P FAXED Original Note: PT CLEARED TO DC HOME TODAY WITH RESUMPTION OF [facility]
== END 2025-01-10 11:00 | disposition home or self-care (01) | DRG 871 ==
LOC: HO.ED 20:00 → HO.EDOVER 21:19
PROVIDERS: Physician Assistant Medical; Admitting Provider Internal Medicine; Emergency Provider Emergency Medicine; PCP Internal Medicine; Visit Provider Internal Medicine
DX: A41.89 Other specified sepsis (principal); J96.01 Acute respiratory failure with hypoxia; I50.22 Chronic systolic (congestive) heart failure; J45.41 Moderate persistent asthma with (acute) exacerbation; Z68.41 Body mass index [BMI] 40.0-44.9, adult; G47.33 Obstructive sleep apnea (adult) (pediatric); E66.01 Morbid (severe) obesity due to excess calories; F39 Unspecified mood [affective] disorder; N18.30 Chronic kidney disease, stage 3 unspecified; J10.1 Influenza due to other identified influenza virus with other respiratory manifestations; Z20.822 Contact with and (suspected) exposure to COVID-19; Z79.890 Hormone replacement therapy; Z79.899 Other long term (current) drug therapy
CPT/HCPCS: 0241U; 36415; 71045; 80048; 80053; 81003; 82803; 83605; 83735; 84484; 85025; 85027; 85610; 87040; 93005; 94640; 94660; 99285; J0456; J0696; J1650; J2919

== ENCOUNTER → 2025-01-08 19:23 | Outpatient (BNV) | payer OTHER, SELFPAY | PROVIDERS: Admitting Provider Internal Medicine; Emergency Provider Emergency Medicine; PCP Internal Medicine; Visit Provider Internal Medicine Cardiovascular Disease | DX: I44.7 Left bundle-branch block, unspecified (principal) | CPT/HCPCS: 93010 ==

== ENCOUNTER → 2025-01-08 19:23 | Outpatient (BNV) | payer OTHER, SELFPAY | PROVIDERS: Admitting Provider Internal Medicine; Emergency Provider Emergency Medicine; PCP Internal Medicine; Visit Provider Radiology Diagnostic Radiology | DX: R07.9 Chest pain, unspecified (principal) | CPT/HCPCS: 71045 ==

== ENCOUNTER → 2025-01-08 21:14 | Outpatient (BNV) | payer OTHER, SELFPAY | PROVIDERS: Admitting Provider Internal Medicine; Emergency Provider Emergency Medicine; PCP Internal Medicine; Visit Provider Internal Medicine | DX: J11.1 Influenza due to unidentified influenza virus with other respiratory manifestations (principal); R09.02 Hypoxemia; J45.30 Mild persistent asthma, uncomplicated | CPT/HCPCS: 99232; 99239 ==

== ENCOUNTER → 2025-01-10 23:59 | Outpatient (BNV) | payer OTHER, SELFPAY | PROVIDERS: PCP Internal Medicine; Visit Provider Internal Medicine | DX: F33.1 Major depressive disorder, recurrent, moderate (principal); G89.29 Other chronic pain; M15.9 Polyosteoarthritis, unspecified; I10 Essential (primary) hypertension | CPT/HCPCS: G0179 ==

== ENCOUNTER 2025-01-14 14:31 | Outpatient (AMB) | payer OTHER, SELFPAY ==
--- NOTE | 2025-01-14 14:47 | A.OFFPC_ITS ---
Vital Signs 01/14/25 14:49 Height 4 ft 11 in Weight 202 lb 8 oz BMI 40.9 BP 122/70 Blood Pressure Location Rt brachial Position Sitting Pulse 76 Pulse Source Pulse Oximeter Temp 97.1 F Temp Source Temporal Artery Scan Pulse Oximetry (%) 94 Oxygen Delivery Method Room Air Intake Visit Reasons: TCM [facility] 01/10 flu Intake Note: Patient is here for hospital discharge and TCM follow up. Patient was discharged from [facility] on 01/10/25. Lube Attendant Required: No Crm Marketing Manager: Not Required per policy Accompanied by: Self / Same As Patient Allergies latex [LATEX] Allergy (Intermediate, Verified 01/14/25 17:22) RASH oxycodone Adverse Reaction (Severe, Verified 01/14/25 17:22) Itching Medication List - Last Reconciled 01/14/25 by Ludy Coto PA-C Advair HFA 230-21 mcg/actuation (fluticasone propion-salmeterol) 2 puffs inhalation Q12H NS albuterol sulfate 90 mcg/actuation (Proair Digihaler) 2 inhalations inhalation Q4H PRN albuterol sulfate 2.5 mg (3 mL) inhalation Q6H PRN 30 days atorvastatin 20 mg PO DAILY 90 days buspirone 10 mg PO DAILY commode As directed CPAP (CPAP Machine/Device) autoPAP 6-16 cmH2O cyanocobalamin (vitamin B-12) (Vitamin B-12) 1,000 mcg PO DAILY escitalopram oxalate 20 mg PO BEDTIME 90 days furosemide 40 mg PO DAILY lorazepam 0.5 mg PO DAILY PRN metoprolol succinate ER 25 mg PO DAILY 90 days miscellaneous medical [facility] toilet safety frame nebulizers (AeroEclipse II Nebulizer) As directed nystatin 1 appl topical BID PRN 2 weeks oxycodone-acetaminophen 7.5-325 mg 1 tab PO Q8H PRN 30 days [showerhead As directed] walker (Ultra-Light Rollator [facility] As directed Tobacco use date assessed: 01/14/25 Fall risk assessment: No Falls in past year Last assessed Fall Risk: 01/14/25 Dental Screening Dental Screen Date: 12/21/24 HPI TCM TCM Information Date of Discharge 01/10/25 Discharged From [facility] Interactive Contact Date (Reference documentation from this date) 01/11/25 [facility] Medical History (Updated 01/14/25 @ 17:32 by Ludy Coto PA-C) Asthma exacerbation, mild SOB (shortness of breath) Cough Family history of lupus anticoagulant disorder Gallstones Elevated LFTs Cholecystitis with cholelithiasis Acute pancreatitis Constipation Colon cancer screening Abdominal pain Preoperative cardiovascular examination Acute hypokalemia Anemia Back pain Neck pain Foot pain, bilateral Left shoulder pain Right shoulder pain Right hip pain Wound drainage Dyspnea Encounter for preoperative pulmonary examination Right lower lobe pneumonia Bronchitis Pneumonia Dyspnea Moderate persistent asthma Dizziness Hair loss Severe major 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 psychotic features CKD (chronic kidney disease) stage 3, GFR 30-59 ml/min Acute hypoxemic respiratory failure Sepsis Acute kidney injury Morbid obesity Common bile duct dilation Elevated TSH Hair loss Murmur Mild recurrent major depression B12 deficiency Dyslipidemia Lumbar degenerative disc disease History of vitamin D deficiency History of pernicious anemia Arthritis History of trigger finger History of left bundle branch block (LBBB) On beta mel at home Breast cancer Mild aortic stenosis Sleep apnea Tinnitus Chronic pain HTN (hypertension) Asthma Depression Surgical History History of cholecystectomy History of cardiac cath Hx of bilateral cataract extraction History of total right knee replacement (TKR) History of total left knee replacement (TKR) History of dilation and curettage Hx of colonoscopy Hx of esophagogastroduodenoscopy History of lymph node dissection of left axilla S/P lumpectomy, left breast Family History Father Prostate cancer Hypertension Mother Skin cancer Dementia Diabetes Daughter Lupus Maternal Grandmother Diabetes Hypertension Maternal Grandfather No problems noted. Paternal Grandmother No problems noted. Paternal Grandfather Cancer Brother Prostate cancer Social History Household Members: Spouse and Family Household Members Other:: Graddaughter Housing: House Do you presently have visiting nurse or other home services: Yes Alcohol intake: never Patient Tobacco Use Status: Never used Tobacco e-Cigarette/Vaping Use: Never Used Second Hand Smoke Exposure: No Substance Use Type: Marijuana Advance Directives Date on File: 08/05/22 service: No Current occupational status: disabled Cognitive needs: Yes Hearing needs: No Vision needs: Yes Questionnaire Thrive Questionnaire Date Thrive assessed: 01/09/25 RYANNE-7 AMB Questionnaire RYANNE-7 Date RYANNE - 7 assessed: 12/21/24 Source: Developed by Drs. Bin Islas, Stephanie Lowery, Markie Escobedo and colleagues, with an educational lo from [employer]. Physical exam (Primary Care) Vital Signs: Last Vital Signs Temp 97.1 F 01/14/25 14:49 Pulse 76 01/14/25 14:49 BP 122/70 01/14/25 14:49 Pulse Ox 94 01/14/25 14:49 Oxygen Delivery Method Room Air 01/14/25 14:49 Vitals signs have been reviewed. Care Plan Goal for BP management: <130/80 at Goal BMI result Body Mass Index 40.9 BMI Assessment/Plan discussion: High BMI High, discussed plan: lifestyle, weight reduction, dietary, physical activity and alcohol moderation Tobacco/Smoking Status: Tobacco use Status Tobacco use date assessed 01/14/25 01/14/25 14:54 Patient Tobacco Use Status Never used Tobacco 01/14/25 14:48 e-Cigarette/Vaping Use Never Used 01/14/25 14:48 Thrive Assessment: Date of Thrive Assessment Date Thrive assessed 01/09/25 01/14/25 14:48 Coding Level of Care Code Est Pt Level 4 (79069) Complex EM visit Add On G2211 Diagnoses Hospital discharge follow-up Z09 Cough R05.9 SOB (shortness of breath) R06.02 Influenza J11.1 Family history of lupus anticoagulant disorder Z83.2 Asthma exacerbation, mild J45.901 Assessment & Plan Assessment & Plan (1) Hospital discharge follow-up: Code(s): Z09 - Encounter for follow-up examination after completed treatment for conditions other than malignant neoplasm Category: Medical (2) Cough: Code(s): R05.9 - Cough, unspecified Category: Medical Plan: Managing symptoms by prescribing Augmentin, albuterol, Robitussin with codeine and prednisone for another 5 days to treat secondary bacterial infection and advising the continuation of Tamiflu. (3) SOB (shortness of breath): Code(s): R06.02 - Shortness of breath Category: Medical Plan: Managing symptoms by prescribing Augmentin, albuterol, Robitussin with codeine and prednisone for another 5 days to treat secondary bacterial infection and advising the continuation of Tamiflu. (4) Influenza: Code(s): J11.1 - Influenza due to unidentified influenza virus with other respiratory manifestations Category: Medical Plan: Managing symptoms by prescribing Augmentin to prevent secondary bacterial infection and advising the continuation of Tamiflu. (5) Family history of lupus anticoagulant disorder: Code(s): Z83.2 - Family history of diseases of the blood and blood-forming organs and certain disorders involving the immune mechanism Category: Medical Plan: Initiated a blood screening panel for lupus and thyroid evaluation. Per patient request. (6) Asthma exacerbation, mild: Code(s): J45.901 - Unspecified asthma with (acute) exacerbation Category: Medical Plan: Treating asthma symptoms with an additional course of prednisone. Prescribed a chest X-ray to check for pneumonia is advised alongside ongoing treatment. Plan Plan Patient was informed and verbally consented to the use of an ambient scribe for clinic note documentation during this visit. 1. Family History Of Lupus Initiated a blood screening panel for lupus and thyroid evaluation. 2. Influenza A Infection Managing symptoms by prescribing Augmentin to prevent secondary bacterial infection and advising the continuation of Tamiflu. 3. Asthma Exacerbation Treating asthma symptoms with an additional course of prednisone. Prescribed a chest X-ray to check for pneumonia is advised alongside ongoing treatment. Discussion Notes During this visit, I discussed with the patient the impacts of her recent influenza A infection and the resulting asthma exacerbation. We talked about the importance of additional measures like a course of Augmentin to manage potential bacterial superinfections. I emphasized the need for further prednisone to ensure asthma control. Reassessment through a chest X-ray was recommended to verify no secondary pneumonia. We discussed continuous management of heart failure with no changes in medication but included routine lab checks to evaluate cardiac function. Given the family history of lupus and some symptoms presented, additional tests were considered. The importance of these diagnostic studies was underscored to ensure complete recovery. Follow-up care was planned in one week to track symptom improvement and overall recovery. Orders: Orders Complete Blood Count Auto Diff Today Z00.00 - Encounter for general adult medical examination without abnormal findings Erythrocyte Sedimentation Rate Today Z00.00 - Encounter for general adult medical examination without abnormal findings Liver Panel Today Z00.00 - Encounter for general adult medical examination without abnormal findings Vitamin D 25-OH Total Today Z00.00 - Encounter for general adult medical examination without abnormal findings TSH reflex Free T4 Today Z. - Encounter for general adult medical examinat ion without abnormal findings B Type Natriuretic Peptide Today R60.0 - Localized edema Parathyroid Hormone Intact Today Z. - Encounter for general adult medical examination without abnormal findings Phosphorus Today Z. - Encounter for general adult medical examination without abnormal findings Zinc Today Z. - Encounter for general adult medical examination without abnormal findings Vitamin B1 Today Z. - Encounter for general adult medical examination without abnormal findings XR chest 2V Today R05.9 - Cough, unspecified, R06.02 - Shortness of breath AMBROSE Reflex Titer and Pattern Today Z83.2 - Family history of diseases of the blood and blood-forming organs and certain disorders involving the immune mechanism Comprehensive Met. Panel Today Z. - Encounter for general adult medical examination without abnormal findings C Reactive Protein Today Z. - Encounter for general adult medical examination without abnormal findings Magnesium Today Z. - Encounter for general adult medical examination without abnormal findings Vitamin B12 and Folate Today Z. - Encounter for general adult medical examination without abnormal findings Vitamin A Today Z. - Encounter for general adult medical examination without abnormal findings Medications: New amoxicillin-pot clavulanate 875-125 mg 1 tab PO BID 10 days 20 tabs 0RF prednisone 40 mg (2 x 20 mg) PO DAILY 5 days 10 tabs 0RF Patient Instructions: Patient Instructions - Continue Tamiflu regime as previously advised. - Commence Augmentin as prescribed, twice a day for ten days. - Complete the prescribed burst of prednisone. - Undergo a chest X-ray and lab tests as recommended. - Attend a follow-up appointment in one week to discuss and evaluate results and recovery progress. - Report any worsening of symptoms such as increased breathlessness or unresolved cough immediately. - Maintain current medications for asthma and heart failure without changes. - Engage with W[employer] MECH[employer]IC and [facility] as scheduled for support and assistance. - Update contact details at the medical office if necessary for ease of follow- up communication. Scribe Plan - Not visible on output: Patient presents to the office for a Hospital Discharge follow-up Date of admission: 01/08/25 Date of discharge: 01/10/25 This is a Follow-up from admission at [facility] HPI: The patient is a 69-year-old female presenting with a hospital discharge follow- up for influenza A infection with an asthma exacerbation. She was admitted to the hospital after experiencing cough, fever, body aches, and procedural dyspnea that began two days prior to her visit. At the hospital, she was diagnosed with influenza A and significant hypoxia. Treatment included IV steroids, nebulizers, bronchodilators, and Tamiflu, leading to some improvement. However, she was discharged with persistent shortness of breath, treated with a short course of oral prednisone. The patient still reports fatigue and occasional shortness of breath, especially upon coughing, but no fever or chest pain. Hospital Course/Discharge Summary: 69F PMH put obesity with obesity restrictive lung disease, DORA, mood disorder, CHF with mildly reduced ejection fraction of 48% and grade 1 diastolic d ysfunction, moderate persistent asthma presented with cough and fever. Patient states symptoms began 2 days prior to presentation with fever and productive cough chills and body aches. Also with shortness of breath, worse on exertion and positive orthopnea. Reports great granddaughter with similar symptoms. Denies chest pain, nausea vomiting or diarrhea. In ED found to be febrile and hypoxic on room air and positive flu. The patient presented with cough, fever, shortness of breath, and general malaise. She was diagnosed with influenza A, which exacerbated her asthma. She was admitted and treated with IV Solu-Medrol, nebulized bronchodilators, and Tamiflu for influenza. She has significantly improved, is no longer hypoxic, and will be discharged to complete a 5-day course of oral Prednisone. She is comfortable wit the discharge plan Discharged to/Current Location: Home Lives with: and granddaughter Diagnosis: Influenza a with asthma exacerbation Procedures performed: Chest x-ray New medications: Patient was discharged with prednisone for 3 days and Tamiflu which she has completed Discontinued medications: No medications were discontinued Change medications/dosing: No changes in her medications or dosing Pending labs: No pending lab Pending diagnostic test: No pending diagnostic test Any Follow-up Labs required? No follow-up labs required per discharge summary Any Follow-up Diagnostic test required? No follow-up diagnostic test required per discharge summary although patient is still having cough, shortness of davis ath therefore will obtain a repeat chest x-ray today How are you feeling? Patient reports she is still tired, coughing and still short of breath. Patient denies any fevers, chills, chest pain, leg swelling or calf tenderness. Are you in any pain or discomfort? Patient denies any pain or discomfort reports she is just tired. Do you have any questions about your condition or discharge instructions? Patient does not have any questions about her condition or her discharge instructions at this time Were you able to get your medications filled? Patient was able to feel all her medications Do you have any questions about your medications? All questions were answered about the patient's medications Any referrals required? No referrals were required Were you able to schedule your follow-up appointment? Patient was able to schedule her follow-up appointment If home health was ordered, have they contact you? Patient already has VNA and [employer] and meals on wheels in place Any outpatient services, if so, are you scheduled? No additional outpatient services are required at this time Are there any additional resources like transportation you might need during her recovery? - VNA? Patient has a VNA in place who comes every day Friday through Friday off on the weekend - W[employer] MECH[employer]IC? Patient has 34 hours a week with [employer] services daily - Meals on wheels? Patient has meals on wheels Educational need/resources: Patient does not feel like she needs any additional educational needs resources What support system do you have? Patient has and 34 year old granddaughter. Social History - Lives with and granddaughter. - Has a visiting nurse ([facility]) Friday through Friday. - Receives assistance from Overhead Distribution Engineer ([employer]) for 34 hours per week. - Participates in [employer] Whe[employer]. Review of Systems - Respiratory: Reports persistent cough and shortness of breath, especially upon exertion and coughing. - Constitutional: Reports fatigue. Physical Exam Appearance: Alert. Oriented X3. No acute distress. Head: Normal external exam. Normocephalic. Atraumatic. Eyes: Pupils are equal, round, and reactive to light. Extraocular movements intact. Conjunctiva and sclera normal. Eyelids normal. Ears: External auditory canal normal. Tympanic membranes normal. Throat: Pharynx normal. Uvula midline. Moist mucous membranes. Neck: Normal inspection. Neck supple. Full range of motion. No adenopathy. Thyroid Normal. No meningeal signs. No neck mass noted. Cardiovascular: Heart sound normal. Murmur noted. Pulses normal throughout. Respiratory: Not in acute respiratoryb distress. Although pt with decreased with breath sounds and Rhonchi to Right lung blancas. Painless inspiration. No wheezes/rales noted. Chest nontender. No accessory muscle usage noted. Abdomen: Soft and nontender. Bowel sounds normal in all 4 quadrants. No distention noted. No organomegaly noted. No visible injury noted. Back: No costovertebral angle tenderness. Full range of motion noted. Skin: Skin warm and dry. Normal skin color. Normal skin turgor. No rashes/lesions/lacerations noted. Extremities: No lower extremity edema. Extremities exhibit normal range of motion. Extremities nontender. Neuro: Oriented X 3. No motor deficit. No sensory deficit. Reflexes normal. Results - Influenza A positive. - Blood cultures: Negative.
[2025-01-14 14:49] VITALS: BP 122/70; PULSE 76; TEMP 36.2; O2SAT 94; BMI 40.9
== END 2025-01-14 15:15 | disposition home or self-care (01) ==
LOC: HO.HMCH 14:32
PROVIDERS: PCP Internal Medicine; Visit Provider Physician Assistant Medical
DX: Z09 Encounter for follow-up examination after completed treatment for conditions other than malignant neoplasm (principal); R05.9 Cough, unspecified; R06.02 Shortness of breath; J11.1 Influenza due to unidentified influenza virus with other respiratory manifestations; Z83.2 Family history of diseases of the blood and blood-forming organs and certain disorders involving the immune mechanism; J45.901 Unspecified asthma with (acute) exacerbation

== ENCOUNTER 2025-01-14 14:31 | Outpatient (REF) | payer OTHER, SELFPAY ==
--- NOTE | ~2025-01-14 | XR_ITS ---
EXAMINATION: XR CHEST CLINICAL INFORMATION: R05.9 - Cough, unspecified COMPARISON: 01/08/2025 TECHNIQUE: 2 views of the chest were obtained. FINDINGS: The cardiac, hilar, and mediastinal contours are normal. Aortic mural calcification. Lungs demonstrate patchy opacities right mid and lower lung consistent with pneumonia. Left lung is clear. There is no pneumothorax or pleural effusion. There is no focal osseous or soft tissue abnormality. XR/XR chest 2V IMPRESSION: 1. Patchy opacities right mid and lower lung consistent with pneumonia. No effusions. Electronically signed by: Elio Berry MD 01/14/2025 04:25 PM EDT
[2025-01-14 15:56] LABS: MANUAL DIFF FLAG NO
[2025-01-14 16:03] LABS: Basophils Percent Auto 0.2 % (0-2); Eosinophils Percent Auto 0.1 % (0-4); Hematocrit 38.7 % (37.0-47.0); Hemoglobin 12.6 g/dl (12.0-16.0); Imm Gran Abs Auto 0.09 X10*3/uL (0.00-0.03); Lymphocytes Absolute Auto 2.9 X10*3/uL (1.2-4.9); Lymphocytes Percent Auto 31.5 % (20-40); Mean Corpuscular HGB Conc 32.6 g/dl (31.0-35.0); Mean Corpuscular Volume 76.8 fL (80.0-98.0); Monocytes Absolute Auto 0.7 X10*3/uL (0.1-1.2); Monocytes Percent Auto 7.8 % (2-11); Neutrophils Absolute Auto 5.5 x10*3/uL (2.0-8.3); Neutrophils Percent Auto 59.4 % (45-73); Platelet Count 291 X10*3/uL (160-400); Red Blood Count 5.04 X10*6/uL (4.20-5.50); Red Cell Distribution Width 15.2 % (11.0-16.0); White Blood Count 9.3 X10*3/uL (4.8-10.8)
[2025-01-14 16:49] LABS: B Type Natriuretic Peptide 80 pg/mL (<100)
[2025-01-14 16:50] LABS: Erythrocyte Sedimentation Rate 25 MM/HR (0-20)
[2025-01-14 17:24] LABS: Parathyroid Hormone Intact 127.4 pg/mL (8.7-77.1)
[2025-01-14 17:36] LABS: Folate 12.4 ng/mL (> or = 4.0); Vitamin B12 886 pg/mL (200-900)
[2025-01-14 19:58] LABS: Alanine Aminotransferase 23 U/L (0-31); Alkaline Phosphatase 72 U/L (39-117); Anion Gap 17 (12-20); Aspartate Amino Transferase 23 U/L (5-31); Bilirubin Direct 0.2 mg/dL (0.0-0.5); Bilirubin Total 0.8 mg/dL (0.0-1.0); Blood Urea Nitrogen 26 mg/dL (9-16); C Reactive Protein 1.98 mg/dL (< or = 0.50); Calcium 9.9 mg/dL (8.4-10.2); Carbon Dioxide 22 mmol/L (22-29); Chloride 106 mmol/L (96-108); Estimated Glomerular Filt Rate > 60; Glucose Random 86 mg/dL (60-115); Magnesium 2.1 mg/dL (1.6-2.6); Phosphorus 2.4 mg/dL (2.7-4.5); Potassium 3.6 mmol/L (3.3-5.1); Sodium 141 mmol/L (135-145); Total Protein 7.7 g/dL (6.5-8.0)
[2025-01-14 20:15] LABS: TSH reflex Free T4 16.35 uIU/mL (0.32-4.0); Vitamin D 25-OH Total 18.8 ng/mL (>30)
[2025-01-14 21:14] LABS: Free T4 (Free Thyroxine) 0.78 ng/dL (0.71-1.85)
[2025-01-18 06:13] LABS: Zinc 49 mcg/dL (60-130)
[2025-01-18 09:42] LABS: Anti Nuclear Antibody Screen NEGATIVE (NEGATIVE)
[2025-01-19 23:48] LABS: Vitamin A 62 mcg/dL (38-98)
[2025-01-24 10:09] LABS: Vitamin B1 9 nmol/L (8-30)
== END 2025-01-14 14:32 | disposition home or self-care (01) ==
LOC: HO.LAB 14:31
PROVIDERS: PCP Internal Medicine; Visit Provider Physician Assistant Medical
DX: Z09 Encounter for follow-up examination after completed treatment for conditions other than malignant neoplasm (principal); J11.1 Influenza due to unidentified influenza virus with other respiratory manifestations; R05.9 Cough, unspecified; R06.02 Shortness of breath; J45.901 Unspecified asthma with (acute) exacerbation; Z83.2 Family history of diseases of the blood and blood-forming organs and certain disorders involving the immune mechanism; Z00.00 Encounter for general adult medical examination without abnormal findings; R60.0 Localized edema
CPT/HCPCS: 36415; 71046; 80053; 82248; 82306; 82607; 82746; 83735; 83880; 83970; 84100; 84425; 84439; 84443; 84590; 84630; 85025; 85652; 86038; 86140; 99212

== ENCOUNTER → 2025-01-14 15:57 | Outpatient (BNV) | payer OTHER, SELFPAY | PROVIDERS: PCP Internal Medicine; Visit Provider Radiology Diagnostic Radiology | DX: R05.9 Cough, unspecified (principal) | CPT/HCPCS: 71046 ==

== ENCOUNTER 2025-01-21 11:08 | Outpatient (AMB) | payer OTHER, SELFPAY ==
[2025-01-21 11:12] VITALS: BP 114/78; PULSE 69; RESP 20; TEMP 36.2; O2SAT 98; BMI 41.7
--- NOTE | 2025-01-21 11:12 | MHC.PC.OV ---
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 Accompanied by: Spouse Allergies latex [LATEX] Allergy (Intermediate, Verified 01/21/25 11:37) RASH oxycodone Adverse Reaction (Severe, Verified 01/21/25 11:37) Itching Medication List - Last Reconciled 01/21/25 by Ludy Coto PA-C Advair HFA 230-21 mcg/actuation (fluticasone propion-salmeterol) 2 puffs inhalation Q12H NS albuterol sulfate 90 mcg/actuation (Proair Digihaler) 2 inhalations inhalation Q4H PRN albuterol sulfate 2.5 mg (3 mL) inhalation Q6H PRN 30 days amoxicillin-pot clavulanate 875-125 mg 1 tab PO BID 10 days atorvastatin 20 mg PO DAILY 90 days buspirone 10 mg PO DAILY cholecalciferol (vitamin D3) 50 mcg PO DAILY 90 days commode As directed CPAP (CPAP Machine/Device) autoPAP 6-16 cmH2O cyanocobalamin (vitamin B-12) (Vitamin B-12) 1,000 mcg PO DAILY escitalopram oxalate 20 mg PO BEDTIME 90 days furosemide 40 mg PO DAILY levothyroxine 50 mcg PO DAILY 90 days lorazepam 0.5 mg PO DAILY PRN metoprolol succinate ER 25 mg PO DAILY 90 days miscellaneous medical supply GRAB BAR 18 miscellaneous medical supply toilet safety frame nebulizers (AeroEclipse II Nebulizer) As directed nystatin 1 appl topical BID PRN 2 weeks oxycodone-acetaminophen 7.5-325 mg 1 tab PO Q8H PRN 30 days [showerhead As directed] walker (Ultra-Light Rollator misc) As directed Tobacco use date assessed: 01/21/25 Fall risk assessment: No Falls in past year Last assessed Fall Risk: 01/21/25 Dental Screening Dental Screen Date: 01/21/25 Did you have a dental visit in the last 12 months?: Yes Did you have a dental problem in the last 6 months where you did not have access to dental care?: No Was dental information given to patient?: Patient has dentist [facility], [facility] Medical History Low phosphate levels Fatigue Bacterial pneumonia Vitamin D deficiency Zinc deficiency Diarrhea DORA on CPAP Asthma exacerbation, mild SOB (shortness of breath) Cough Family history of lupus anticoagulant disorder Gallstones Elevated LFTs Cholecystitis with cholelithiasis Acute pancreatitis Constipation Colon cancer screening Abdominal pain Preoperative cardiovascular examination Acute hypokalemia Anemia Back pain Neck pain Foot pain, bilateral Left shoulder pain Right shoulder pain Right hip pain Wound drainage Dyspnea Encounter for preoperative pulmonary examination Right lower lobe pneumonia Bronchitis Pneumonia Dyspnea Moderate persistent asthma Dizziness Hair loss Severe major 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 psychotic features CKD (chronic kidney disease) stage 3, GFR 30-59 ml/min Acute hypoxemic respiratory failure Sepsis Acute kidney injury Morbid obesity Common bile duct dilation Elevated TSH Hair loss Murmur Mild recurrent major depression B12 deficiency Dyslipidemia Lumbar degenerative disc disease History of vitamin D deficiency History of pernicious anemia Arthritis History of trigger finger History of left bundle branch block (LBBB) On beta mel at home Breast cancer Mild aortic stenosis Sleep apnea Tinnitus Chronic pain HTN (hypertension) Asthma Depression Surgical History History of cholecystectomy History of cardiac cath Hx of bilateral cataract extraction History of total right knee replacement (TKR) History of total left knee replacement (TKR) History of dilation and curettage Hx of colonoscopy Hx of esophagogastroduodenoscopy History of lymph node dissection of left axilla S/P lumpectomy, left breast Family History Father Prostate cancer Hypertension Mother Skin cancer Dementia Diabetes Daughter Lupus Maternal Grandmother Diabetes Hypertension Maternal Grandfather No problems noted. Paternal Grandmother No problems noted. Paternal Grandfather Cancer Brother Prostate cancer Social History Household Members: Spouse and Family Household Members Other:: Graddaughter Housing: House Do you presently have visiting nurse or other home services: Yes Alcohol intake: never Patient Tobacco Use Status: Never used Tobacco e-Cigarette/Vaping Use: Never Used Second Hand Smoke Exposure: No Substance Use Type: Marijuana Advance Directives Date on File: 08/05/22 service: No Current occupational status: disabled Cognitive needs: Yes (Cane) Hearing needs: No Vision needs: Yes (Glasses) Questionnaire PHQ-9 Over the last 2 weeks, how often have you been bothered by any of the following problems? 1. Little interest or pleasure in doing things: not at all 2. Feeling down, depressed, or hopeless: not at all 3. Trouble falling or staying asleep, or sleeping too much: nearly every day 4. Feeling tired or having little energy: nearly every day 5. Poor appetite or overeating: nearly every day 6. Feeling bad about yourself - or that you are a failure or have let yourself or your family down: not at all 7. Trouble concentrating on things, such as reading the newspaper or watching television: not at all 8. Moving or speaking so slowly that other people could have noticed. Or the opposite - being so fidgety or restless that you have been moving around a lot more than usual: not at all 9. Thoughts that you would be better off or of hurting yourself in some way: not at all Total score: 9 Depression Screening Interpretation: Positive Depression Screening Follow-up: Existing condition and In treatment Depression Screening Done: Yes 82836 - PHQ-9 Billing: Yes Source: Developed by Drs. Bin Islas, Stephanie Lowery, Markie Escobedo and colleagues, with an educational lo from [employer]. Thrive Questionnaire Date Thrive assessed: 01/21/25 I am a: Patient What is your living situation today?: I have a steady place to live Within the past 12 months, did the food you bought not last and you didn't have the money to get more?: Never true Within the past 12 months, did you worry whether your food would run out before you got money to buy more?: Never true Do you have trouble paying for medicines?: No Do you have trouble getting transportation to medical appointments?: No Do you have trouble paying your heating and electricity bill?: No Do you have trouble taking care of your child, family member or friend?: No Do you have trouble with day-to-day activities such as bathing, preparing meals, shopping, managing finances, etc.?: No Are you currently unemployed and looking for a job?: No Are you interested in more education?: No Please select the resources that you would like help with: None Currently or been in a relationship where the following occur: No concerns reported THRIVE Score: 0 AUDIT C Alcohol Use Questionnaire (AUDIT-C) 1. How often do you have a drink containing alcohol?: Never 3. How often do you have six or more drinks on one occasion?: Never Total Score: 0 Score Reviewed/Action Taken: No RYANNE-7 AMB Questionnaire RYANNE-7 Date RYANNE - 7 assessed: 01/21/25 Feeling nervous, anxious, or on edge: 0 = Not at all Not being able to stop or control worryin = Not at all Worrying too much about different things: 0 = Not at all Trouble relaxin = Not at all Being so restless that it is hard to sit still: 0 = Not at all Becoming easily annoyed or irritable: 0 = Not at all Feeling afraid as if something awful might happen: 0 = Not at all Total RYANNE-7 score (0-4 normal; 5-9 mild; 10-14 moderate; 15-21 severe): 0 Source: Developed by Drs. Bin Islas, Stephanie Lowery, Markie Escobedo and colleagues, with an educational lo from [employer]. RYANNE-7 Assessment Billing RYANNE-7 Assessment Tool: RYANNE-7 Assessment 63617 Physical exam (Primary Care) Vital Signs: Last Vital Signs Temp 97.1 F 01/21/25 11:12 Pulse 69 01/21/25 11:12 Resp 20 01/21/25 11:12 BP 114/78 01/21/25 11:12 Pulse Ox 98 01/21/25 11:12 Oxygen Delivery Method Room Air 01/21/25 11:12 Care Plan Goal for BP management: <130/80 at Goal BMI result Body Mass Index 41.7 BMI Assessment/Plan discussion: High BMI High, discussed plan: lifestyle, weight reduction, dietary, physical activity and alcohol moderation Tobacco/Smoking Status: Tobacco use Status Tobacco use date assessed 01/21/25 01/21/25 11:23 Patient Tobacco Use Status Never used Tobacco 01/21/25 11:23 e-Cigarette/Vaping Use Never Used 01/21/25 11:23 PHQ-9: PHQ-9 Score PHQ-9: Total score 9 01/21/25 11:23 Depression Screening Interpretation: Positive Depression Screening Follow-up: Existing condition and In treatment Thrive Assessment: Date of Thrive Assessment Date Thrive assessed 01/21/25 01/21/25 11:23 Currently or been in a relationship where the following occur: No concerns reported Coding Level of Care Code Est Pt Level 4 (34005) Complex EM visit Add On G2211 Diagnoses Diarrhea R19.7 Hypothyroidism E03.9 Zinc deficiency E60 Vitamin D deficiency E55.9 Bacterial pneumonia J15.9 Fatigue R53.83 Low phosphate levels E83.39 Additional Codes RYANNE-7 Assessment Billing - RYANNE-7 Assessment Tool: RAYNNE-7 Assessment [id number] ([id number]) PHQ-9 - 65686 - PHQ-9 Billing: Yes ([id number]) Assessment & Plan Assessment & Plan (1) Diarrhea: Code(s): R19.7 - Diarrhea, unspecified Category: Medical (2) Hypothyroidism: Code(s): E03.9 - Hypothyroidism, unspecified Category: Medical Plan: Currently on levothyroxine 50 mcg. Repeat thyroid function testing is to be scheduled in six weeks to assess response to therapy and adjust dosing if necessary. (3) Zinc deficiency: Code(s): E60 - Dietary zinc deficiency Category: Medical Plan: Encouraged to take zinc supplements or multivitamins, with recommendations based on insurance coverage. Follow-up in six weeks to reassess levels. (4) Vitamin D deficiency: Code(s): E55.9 - Vitamin D deficiency, unspecified Category: Medical Plan: Continue with vitamin D supplementation. Further assessment and management plan will be based on follow-up test results. (5) Bacterial pneumonia: Code(s): J15.9 - Unspecified bacterial pneumonia Category: Medical Plan: The patient continues on a course of amoxicillin with a plan for a follow-up chest x-ray post-antibiotic completion to confirm resolution. Symptomatic treatment with inhalers like albuterol and Advair is recommended. Patient is advised to monitor symptoms and report any deterioration. (6) Fatigue: Code(s): R53.83 - Other fatigue Category: Medical Plan: Manage symptomatically, addressing contributing factors such as infection recovery and nutritional deficiencies. Monitor for persistent or worsening fatigue. (7) Low phosphate levels: Code(s): E83.39 - Other disorders of phosphorus metabolism Category: Medical Plan: Patient has low phosphorus level. Will reassess in 6 weeks. Condition is chronic and stable will continue to monitor. Plan Plan Patient was informed and verbally consented to the use of an ambient scribe for clinic note documentation during this visit. 1. Hypothyroidism Currently on levothyroxine 50 mcg. Repeat thyroid function testing is to be scheduled in six weeks to assess response to therapy and adjust dosing if necessary. 2. Zinc Deficiency Encouraged to take zinc supplements or multivitamins, with recommendations based on insurance coverage. Follow-up in six weeks to reassess levels. 3. Vitamin D Deficiency Continue with vitamin D supplementation. Further assessment and management plan will be based on follow-up test results. 4. Bacterial Pneumonia The patient continues on a course of amoxicillin with a plan for a follow-up chest x-ray post-antibiotic completion to confirm resolution. Symptomatic treatment with inhalers like albuterol and Advair is recommended. Patient is advised to monitor symptoms and report any deterioration. 5. Diarrhea Likely related to antibiotic therapy. Address with increased fluid intake and electrolyte replenishment. Monitor and report any changes in symptoms. 6. Tiredness Manage symptomatically, addressing contributing factors such as infection recovery and nutritional deficiencies. Monitor for persistent or worsening fatigue. Discussion Notes The patient and I discussed her current conditions, including pneumonia, hypothyroidism, vitamin D deficiency, and zinc deficiency. We focused on the importance of completing the current antibiotic regimen and the need for a follow-up chest x-ray to ensure pneumonia resolution. We discussed the initiation of levothyroxine due to elevated thyroid function tests and the expected plan to recheck levels in six weeks. I explained the potential benefits of vitamin D supplementation and addressed concerns around the zinc deficiency, discussing supplementation options. We addressed the side effect of diarrhea from antibiotics and the importance of staying hydrated. We also discussed her fatigue, relating it to infection and supplements, and advised monitoring symptoms. We planned follow-up visits to reassess thyroid status, vitamin D, and zinc levels, ensuring control over her ongoing health issues. Orders: Orders XR chest 2V Today Z87.01 - Personal history of pneumonia (recurrent) Basic Metabolic Panel Today R19.7 - Diarrhea, unspecified Magnesium Today Z00.00 - Encounter for general adult medical examination without abnormal findings Medications: New zinc acetate (Galzin) 50 mg PO DAILY 30 caps 1RF Patient Instructions: Patient Instructions - Complete the four remaining days of the amoxicillin course. - Schedule a follow-up chest x-ray next week after finishing antibiotics. - Continue using albuterol inhalers and Advair as needed. - Monitor symptoms and report any worsening, especially chest pain or increased fatigue. - Consume plenty of fluids and consider electrolytic replenishment to prevent dehydration due to diarrhea. - Continue taking vitamin D supplements. - Consider starting OTC zinc supplements or a multivitamin with zinc if needed. - Arrange for a thyroid function test in six weeks and follow-up appointment to monitor thyroid hormone levels. - Report any ongoing issues with diarrhea and fatigue. Scribe Plan - Not visible on output: History of Present Illness The patient is a 69-year-old female presenting with follow-up for pneumonia and management of thyroid dysfunction. The patient has a history of pneumonia, confirmed through a chest x-ray showing consolidation in the right mid and lower lobes, for which she was started on antibiotics including Augmentin and azithromycin along with a cough suppressant. She continues on amoxicillin with completion in four days. Residual congestion is noted despite therapy, with improvements overall. She denies fever and uses albuterol inhalers and Advair as needed. She was diagnosed with hypothyroidism on the recent thyroid function test showing elevated measurements and is now on a titrated dose of levothyroxine (initial dose of 50 mcg, first-time use). The patient?s blood work also revealed a vitamin D deficiency for which she has begun supplementation. Zinc deficiency was also noted, though treatment status is unclear. A slightly low phosphorus level was recorded, with plans to monitor. She reports ongoing tiredness, attributed potentially to the pneumonia and/or diarrhea from antibiotic therapy noted to manifest as occasional urgency and volume increase without black or bloody stools. Good hydration and use of electrolyte replenishing supplements were recommended. She denies any significant chest pain and reports generally feeling better aside from fatigue. Review of Systems - Respiratory: Denies chest pain, reports ongoing congestion. - Gastrointestinal: Reports diarrhea possibly related to antibiotic use, without black or bloody stools. - General: Reports feeling tired. Physical Exam Appearance: Alert. Oriented X3. No acute distress. Head: Normal external exam. Normocephalic. Atraumatic. Eyes: Pupils are equal, round, and reactive to light. Extraocular movements intact. Conjunctiva and sclera normal. Eyelids normal. Throat: Pharynx normal. Uvula midline. Moist mucous membranes. Neck: Normal inspection. Neck supple. Full range of motion. No adenopathy. Cardiovascular: Normal heart rate and rhythm. Heart sound normal. No murmurs noted. Pulses normal throughout. Respiratory: No respiratory distress. Painless inspiration. Breath sounds normal. No wheezes/rales/rhonchi noted. Chest nontender. No accessory muscle usage noted or decreased air movement noted. Abdomen: Soft and nontender. Bowel sounds normal in all 4 quadrants. No distention noted. No organomegaly noted. No visible injury noted. Back: Full range of motion noted. Skin: Skin warm and dry. Normal skin color. Normal skin turgor. No rashes/lesions/lacerations noted. Extremities: No lower extremity edema. Extremities exhibit normal range of motion. Extremities nontender. Neuro: Oriented X 3. No motor deficit. No sensory deficit. Reflexes normal. Results - Labs: Elevated thyroid function test, vitamin D deficiency, zinc deficiency, slightly low phosphorus, normal CBC. - Imaging: Chest x-ray showing pneumonia in the right mid and lower lobe.
--- OUTSIDE RECORDS SUMMARY | 2025-01-21 13:01 | XMS_ITS | Data Portability ---
Author Organization [facility] [place] [facility] Address [address] [place] [address] Care Team Providers Care Finished Goods Stock Clerk Name Role Phone HIM CCA OTHER AMBROSE [...] to allow for adequate healing. Precautions reviewed. [email or web address] Not available 10/07/2024 21:49:22 01/08/2025 01/08/2025 Ms. Murray is a 69 yo F with Asthma, Arrhythmias (e.g., Atrial Fibrillation), Cancer, Sleep Apnea who called today for viral like sx. Per medic and patient, having about 3 days of sx. Fevers as high as 102F. Responsive to tylenol. Endorsing sore throat, congestion, pleurisy. No teodora chest pain. No n/v/d. Given the patient's presenting sx, sounds most c/w viral syndrome. Even with the duration of sx and vitals. Reassuring. Lungs are clear and lower suspicion for PNA. OTC medications advised and will continue to memorial counselor on safe use for tylenol and/or motrin as needed. COVID test with medic is negative. flu positive. checked BMP POC for renal function. starting on tamiflu. 1x dose 75mg tamiflu with medic and rx called in. allergies checked. Tylenol preferred to be taken by patient's home supply. I provided real -time medical direction via phone for this encounter, and was available for additional phone based assistance as needed. I have reviewed and agree with the Assessment and Plan as documented by the Dowel Inspector. We discussed the diagnostic uncertainty of home visits and the risk associated with this. In this case the patient and I felt this to be an acceptable and reasonable amount of risk given the benefit of avoiding an ED visit. The patient given the opportunity to ask questions. Follow up with primary care was recommended, as needed. Advised if develops CP/severe SOB/turning blue/uncontrolle d n/v/d or black/bloody emesis or stool/ AMS/ syncope/ high fever unresponsive to APAP to call 911- verbalized understanding of instruction. [email or web address] Not available 01/08/2025 12:22:55 Plan of Treatment Reminders Order Date Submit Date Provider Last Modified By Organization Details Last Modified Time Details Appointments None recorded. Lab rapid flu (A+B) 2024 025 [facility], [address] [place] [address], [id number] 12:22:27 rapid SARS CoV 2 Ag, QL IA, respiratory specimen [facility], [address] [place] [address], [id number] 12:22:26 rapid flu (A+B) 2024 025 [facility], [address] [place] [address], [id number] 5 14:16:35 rapid SARS CoV 2 Ag, QL IA, respiratory specimen 2024 [facility], [address] [place] [address], [id number] 14:16:35 Referral None recorded. Procedures None recorded. Surgeries None recorded. Imaging None recorded. Medication Orders oseltamivir 75 mg capsule 2024 025 [id number], [address] [facility], [place], [address], 5 12:22:25 Tamiflu 75 mg capsule 2024 025 [id number], [address] [place], [address], 5 12:22:25 ipratropium 0.5 mg-albutero l 3 mg (2.5 mg base)/3 mL nebulizatio n soln [id number], [address] [place], [address], 5 14:16:35 prednisone 10 mg tablet 2024 025 [id number], [address] [place], [address], 5 14:18:56 prednisone 20 mg tablet [address]/[facility]acy [id number], [address] [place], [address], 5 14:18:54 clotrimazol e 1 % topical cream 2023 024 [id number], [address] [place], [address], 4 20:06:27 Patient TargetsNo targets recorded. Patient InstructionsNo instructions recorded. Reason for Referral None Reported. Results Created Date Observation Date Name Description Value Unit Range Abnormal Flag Note LastModifiedBy Organization Detail LastModifiedTime 01/09/2001/08/2025 rapid SARS CoV 2 Ag, QL IA, respi rator y speci men rapid SARS CoV 2 Ag, QL IA, respiratory specimen negati ve Not Available [facility] [address] [place] [address], [id number] 01/08/2025 11:33:21 01/09/2001/08/2025 rapid flu (A+B) Flu positi ve Not Available [facility] [address] [place] [address], [id number] 01/08/2025 11:33:21 Result Notes None recorded. Medical Equipment None Reported. Allergies Allergen ID Allergen Name Allergen Category Reaction Reaction Severity Criticality Documentation Date Start Date Code Code System Note Provider Name and Address Organization Details Recorded Time 74139 oxycodone medicatio n Not available Not available Not available 10/07/2024 7804 [facility] Not Available [facility] - production 4 16:21:18 78046 latex environme nt,medica tion Not available Not available Not available 10/07/2024 36281 91 RxNorm Not Available [facility] - production [...] No t Available prednisone 20 mg tablet TAKE 2 TABLETS BY MOUTH EVERY DAY active Not Available Not Available No t Available cyanocobalam in (vit B-12) 1,000 mcg tablet TAKE 1 TABLET BY MOUTH EVERY DAY active Not Available Not Available No t Available lorazepam 0.5 mg tablet TAKE 2 TABLETS BY MOUTH DAILY NEEDED FOR ANXIETY FOR 1 DAY active Not Available Not Available No t Available oseltamivir 75 mg capsule 75 MG ORALLY EVERY 12 HOURS active Not Available Not Available No t Available nystatin 100,000 unit/gram topical cream APPLY 1 APPLICATION TOPICALLY 2 TIMES A DAY NEEDED FOR RASH FOR 2 WEEKS active Not Available Not Available Not Available buspirone 10 mg tablet TAKE 1 TABLET BY MOUTH THREE TIMES A DAY active Not Available Not Available Not Available [...] etaminophen 7.5 mg-325 mg tablet TAKE 1 TAB EVERY 8 HOURS NEEDED FOR PAIN FOR 30 DAYS active Not Available Not Available No t Available clotrimazole 1 % topical cream APPLY TO THE AFFECTED AND SURROUNDING AREAS OF SKIN BY TOPICAL ROUTE 2 TIMES PER DAY IN THE MORNING AND EVENING active Not Available Not Available No t Available escitalopram 20 mg tablet TAKE 1 TABLET BY MOUTH AT BEDTIME active Not Available Not Available [...] /min 140 mm[Hg] 82 mm[Hg] Not Available [facility] 4 20:04:20 Date Recorded Body weight Respiratory rate Heart rate Body height Oxygen saturation Oxygen saturation in Arterial blood by Pulse oximetry Body temperature Systolic blood pressure Diastolic blood pressure Provider Name and Address Organization Details Last Updated DateTime 5 58934.3 2 g 18 /min 68 /min 147.32 cm 96 % 96 % 98 [degF] 140 mm[Hg] 85 mm[Hg] Not Available [facility] 5 14:10:41 Date Recorded Oxygen saturation Oxygen saturation in Arterial blood by Pulse oximetry Respiratory rate Body temperature Body weight Body height Heart rate Systolic blood pressure Diastolic blood pressure Provider Name and Address Organization Details Last Updated DateTime 5 90 % 90 % 20 /min 103.5 [degF] 49852.1 36 g 149.86 cm 100 /min 119 mm[Hg] 75 mm[Hg] Not Available [facility] 11:37:03 Social History None recorded. Functional Status None recorded. Mental Status None recorded. Family History Nothing Reported. Medical History No medical history recorded. Gynecological HistoryNo gynecological history recorded. Obstetrics History GPAL:G 0 P 0 0 0 0 Past Encounters Encounter ID Performer Location Encounter Start Date Encounter Closed Date Diagnosis/Indication Diagnosis SNOMED-CT Code Diagnosis ICD10 Code Diagnosis Note [id number] MAU RUFFIN MD [facility] - [facility] [address] [place] [phone] 10/07/2024 20:04:14 10/07/2024 23:05:27 Tinea corporis 25687026 B35.4 [id number] [facility] [address] [place] [phone] 11/02/2024 14:06:32 11/02/2024 22:25:51 Upper respiratory infection 46997561 J06.9 Evaluation in the field was performed by my office messenger helper colleague, as noted above, I provided real-time direction and supervisio n for this visit. 68yo F PMHx asthma p/w 2 weeks URI symptoms including cough, rhinorrhea , and increased wheezing without fevers, chest pain. Improved with inhalers. Reports she usually receives antibiotic s every year for this. Denies hx tobacco use. On office messenger helper eval VS sat 96% RA normal RR. [...] shortness of breath, cough, chest pain, fever. [id number] SANDY RODRIGUEZ MD Main - [facility] [address] [place] [phone] 01/08/2025 11:31:19 01/10/2025 13:55:12 Viral syndrome 126359368 B34.9 Health Concerns Section Related Observation LastModified by Organization Detai ls LastModified Time None Recorded Concern Status LastModified by Organization Details LastModified Time None Recorded Advance Directives Directive None Recorded Payers Encounter Date Sequence Insurance Name Policy Number Policy Taylor Covered Member ID Taylor Member ID Guarantor Name 10/07/2024 1 [facility] ON OR AFTER 2023 - DUAL ELIGIBLE - USP OPTIONS AND ONE CARE (MEDICARE REPLACEMENT/ADV ANTAGE - HMO) Marita Murray [id number] Marita Murray 11/02/2024 1 [facility] - DOS ON OR AFTER 2023 - DUAL ELIGIBLE - USP OPTIONS AND ONE CARE (MEDICARE REPLACEMENT/ADV ANTAGE - HMO) Marita Murray [id number] Marita Murray 01/08/2025 1 [facility] DOS ON OR AFTER 2023 - DUAL ELIGIBLE - USP OPTIONS AND ONE CARE (MEDICARE REPLACEMENT/ADV ANTAGE - HMO) Marita Murray [id number] Marita Murray Notes Date Note Type Note [...] .................... .................... .................... .................... .................... .................... . Dowel Inspector Note From Zaki Vega: Dispatched to the [...] .................... .................... .................... .................... .................... . [facility] Consulted: Mau Ruffin .................... .................... .................... .................... .................... .................... .................... . Disposition: Fulfilled MAU RUFFIN MD [address] [facility],[address], [place], [address], [facility] 10/07/2024 21:49:34 11/02/2024 text/html CRC Nurse Triage [...] s/s and seek emergency treatment if needed. Dowel Inspector Organization Information for Yamile Cary Business Legal Name: [employer] Address: [address] [place] [address], Security Nurse: Constantin Machado MD IA No.: [id number] Dowel Inspector POC Test Results from Yamile Cary Rapid influenza antigen (14:11:38) Flu: - Rapid COVID antigen (14:11:39) COVID: - .................... .................... .................... .................... .................... .................... .................... . Dowel Inspector Note From Yamile Cary: Sent to a [...] neb administered; Lung sounds: clear bialterally; [facility] consulted and orders Prednisone 40mg PO. [facility] sends script to pt's pharmacy. Prednisone 40mg PO administered. Pt advised to use symptomatic treatment as outlined. Red flags discussed. Pt has no further questions. .................... .................... .................... .................... .................... .................... .................... . [facility] Consulted: Sanam Russell .................... .................... .................... .................... .................... .................... .................... . Disposition: Fulfilled Sanam Russell MD [address] [place] [address],[address], [place], [address], [facility] 11/02/2024 16:46:28 01/08/2025 text/html CRC Nurse Triage Notes (Eugenia Fernandez): Reason For Request: cough/SOB/fever/naus ea Patient Reports: Cough, fever greater than 2 days ; Lower extremity swelling; History of asthma, increased use of inhaler; Sputum increase ; Cough; Shortness of breath with exertionDenies: Increased work of breathing/labored ? with or without fever Unable to speak in full sentences without distress Discoloration of skin -cyanosis Needs to sleep sitting up, can? t catch breath Shortness of breath in setting of confusion COPD COVID Exposure Pain with inspiration Chief Complaints: Common ColdPMH: Asthma, Arrhythmias (e.g., Atrial Fibrillation), Cancer, Sleep ApneaPMH Reviewed at 01/08/2025 10:57Allergies Reviewed at 01/08/2025 10:57Comments: Member called in complaining of congestion, shortness of breath, cough, and a sore throat. Had fever up to 102 last night. No known sick exposures. Using inhaler as needed. Very productive cough. Denies chest pain. Has been taking Robitussin with little effect. Symptoms have been on going for 3 days now. CRC RN verified identity via name/. Confirmed phone number. Education provided on expected response time and the member was advised to monitor reported signs/symptoms. Member in agreement to seek emergency treatment if needed. Ronan Fernandez RN Dowel Inspector Organization Information for Pancho Mendez Business Legal Name: [employer]? Address: [address] [place] [address], [place] [address], Security Nurse: Constantin Machado MD CLIA No.: [id number] Dowel Inspector POC Test Results from Pancho Mendez Rapid COVID antigen (11:44:34) COVID: - Rapid influenza antigen (11:44:38) Flu: +A Attachments uploaded as part of this test result can be found under Documents section. iSTAT Chem8+ (12:03:59) Na: 139 mEq/L K: 4.2 mEq/L Cl: 103 mEq/L iCa: 1.24 mmol/L TCO2: 28 mmol/L Glu: 118 mg/dL BUN: 11 mg/dL Crea: 0.9 mg/dL Hct: 38 % Hb: 12.9 g/dL A mmol/L Cartridge Number: [id number] Attachments uploaded as part of this test result can be found under Documents section. .................... .................... .................... .................... .................... .................... .................... . Dowel Inspector Note From Pancho Mendez: JESSICA makes pt contact. She is lying R lateral on the sofa in the living room of a small and cluttered home. She is conscious and alert and watching [facility] on approach. Her eyes appear wet and glassy, her face is flushed, and rhonchus respirations can be heard as she breathes. No evidence of neurological involvement is observed, and she is not bleeding anywhere. When she coughs, it is very wet and productive w/ yellow-tinged sputum. Pt endorses congestion, cough, fever, and sore throat x3 days. She says her fever was 102 last night and she is coughing heavily and feeling sob. Pt also c/o feeling nauseous but has not vomited or had diarrhea. No body aches or sloan are reported, and she denies cp. 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 [facility] obtains vital signs and pt is swabbed for COVID/flu and physically assessed. Lung sounds are rhonchi in the larger airways, but good air movement in the bases. Pt's skin is warm to touch and dry, and she is found to be febrile w/ low SpO2 at 90% RA. SpO2 improves to 93% when she sits up. Pt tests positive for Flu A. [facility] contacts [facility] and discusses the above. [facility] requests bmp for tamiflu dosing. IV access is attempted in the dorsum of the R hand w/ a 23ga butterfly needle and is unsuccessful. Pressure bandage is applied w/ 2x2 and tape. IV access is obtained in the dorsum of the R hand using a 23ga butterfly and blood is drawn for bmp. Butterfly is removed and bandaid is applied. BMP is performed and results are uploaded to the platform. [facility] recontacts [facility] and [facility] orders 75mg Tamiflu PO. [facility] administers one 75mg capsule Tamiflu to pt and instructs her to seek ED care if she cannot get her fever down and keep it down, she develops uncontrollable n/v/d, continues to feel sob w/ cp, or feels like she is going to or does pass out. [facility] also instructs pt to continue taking 1G Tylenol every 8 hours for fever and using her albuterol nebulizer every 4 hours as needed. Pt gives her verbal understanding. [facility] is clear. Report completed by ANTONIO Mendez [id number]. [facility] Lab Orders: rapid flu (A+B): Performed rapid SARS CoV 2 Ag, QL IA, respiratory specimen: Performed [facility] Medication Orders: oseltamivir 75 mg capsule: Administered .................... .................... .................... .................... .................... .................... .................... . [facility] Consulted: Sandy Rodriguez .................... .................... .................... .................... .................... .................... .................... . Disposition: Fulfilled SANDY RODRIGUEZ MD [address] [facility],[address], [place], [address], [facility] 01/08/2025 14:28:06 OBGyn Episode No OBEpisode recorded.
--- OUTSIDE RECORDS SUMMARY | 2025-01-21 13:01 | XMS_ITS | Encounter Summary ---
Author Organization [facility] Address [address] [place] [address] Care Team Providers Care Ammonia Refrigeration Technician Name Role Phone Pcp, No Primary Care Provider Unavailabl e Adrianna Sharp MD Primary Care Provider Encounter Details Date Type Department Care Team (Late st Contact Info) Description 04/28/2023 Scanned Document [facility] Emergency Department [address] [place] [address] Provider, Generic Social History Tobacco Use Types [...] place to sleep or slept in a fpc (including now)? No 04/29/2023 Sex and Gender [...] documented as of this encounter Care Teams Ammonia Refrigeration Technician Relationship Specialty Start Date End Date Pcp, No [address] [place] [address] PCP - General 04/28/23 04/28/23 Adrianna Sharp MD [address] [place] [address] PCP - General Family Medicine 04/29/23 documented as of this encounter
--- OUTSIDE RECORDS SUMMARY | 2025-01-21 13:01 | XMS_ITS | Patient Health Record ---
Author Organization [facility] Address [address] [place] [address] Care Team Providers Care Program Production Specialist Name Role Phone Adrianna Sharp Primary Care Provider Bin Salinas Unavailable [phone] Reason For Referral No Information Problems Problem Type SNOMED Code ICD Code Onset Dates Problem Status W/U Status Risk Notes Problem Gallstones (717568226) Gallstones (K80.20) Active confirmed Plan Of Treatment No Information Insurance Providers Payer Name Payer Address Payer Phone Subscriber Number Group Number Insured Name Patient Relationship to Insured Coverage Start Date Coverage End Date MEDICARE [place] [address] [place] [address] [id number] ISMAEL JUÁREZ Self - patient is the insured MEDICAID OF [facility] [address] [place] [address] [id number] ISMAEL JUÁREZ Self - patient is the insured MED[place]ARE [place] [address] [place] [address] [id number] ISMAEL JUÁREZ Self - patient is the insured [facility] [address] [place] [address] [id number] ISMAEL JUÁREZ Self - patient is the insured 3 Medical (General) History Medical History History ICD Code colon and egd 11-30-2009 history of anemia gastric polyp pernicious anemia
--- OUTSIDE RECORDS SUMMARY | 2025-01-21 13:01 | XMS_ITS | Clinical Summary ---
Author Organization [facility] Address [address] [place] [address] Care Team Providers Care Tin Recovery Worker Name Role Phone Adrianna Sharp MD Primary Care Provider [phone] Allergies Active Allergy Reactions Criticality Noted Date [...] place to sleep or slept in a snf (including now)? No 05/25/2023 Sex and Gender [...] this topic Medical Devices Explanted Type Area Practical Nurse Device Identifier Shelf Expiration Date Model / Serial / Lot [id number] Stent Pancreatic 5fr 5cm Pigtail Curve Radopq Push Cath - [id number] Implanted:Qty: 1 on 04/29/2023 by Bryan Chester MD at [facility] Explanted:Qty: 1 on 05/06/2023 by Kristyn Paez MD at [facility] Stent N/A: Bile Duct [employer] [id number] 12/30/2025 [id number] / / [id number] Advance Directives * Full Code (Latest Code Status on File) Date Activated Date Inactivated Comments 05/24/2023 3:08 PM Question Answer Comments Decision Thoroughly Discussed with: Patient * Full Code Date Activated Date Inactivated Comments 04/28/2023 9:15 PM 05/24/2023 2:10 PM Care Teams Tin Recovery Worker Relationship Specialty Start Date End Date Adrianna Sharp MD [address] [place] [address] PCP - General Family Medicine 04/29/23
--- OUTSIDE RECORDS SUMMARY | 2025-01-21 13:01 | XMS_ITS | Clinical Summary ---
Author Organization [facility] Address [address] [address] Phone Care Team Providers Care Community Education Specialist Name Role Phone Adrianna Sharp MD Primary Care Provider [phone] Allergies Active Allergy Reactions Criticality Noted Date [...] calculus 04/28/20232022 Malignant tumor of breast 11/26/20122022 Family History Medical History Relation Comments Cancer [...] [facility] [address] [facility] [address] [place] [address] Dayanara Marcus ARNP [address] [id number] Health Maintenance Due Date Last Done Comments Breast Cancer Screening 1955 Pneumococcal Vaccine: 65+ Ye ars (1 of 2 - PCV) 1959 Colorectal Cancer Screening: Annual FOBT 2002 Colorectal Cancer Screening: Colonoscopy 2002 Colorectal Cancer Screening: Sigmoidoscopy 2002 Influenza Vaccine (Season Ended) 2025 Hepatitis B Vaccine Aged Out No longe r eligible based on patient's age to complete this topic Insurance MCR ([id number]) ([id number]) Care Teams Community Education Specialist Relationship Specialty Start Date End Date Adrianna Sharp MD [address] [place] [address] [address] [facility] [place] PCP - General Internal Medicine 06/25/23
== END 2025-01-21 11:51 | disposition home or self-care (01) ==
LOC: HO.HMCH 11:08
PROVIDERS: PCP Internal Medicine; Visit Provider Physician Assistant Medical
DX: R19.7 Diarrhea, unspecified (principal); E03.9 Hypothyroidism, unspecified; E60 Dietary zinc deficiency; E55.9 Vitamin D deficiency, unspecified; J15.9 Unspecified bacterial pneumonia; R53.83 Other fatigue; E83.39 Other disorders of phosphorus metabolism

== ENCOUNTER → 2025-01-21 11:08 | Outpatient (BNVA) | payer OTHER, SELFPAY | PROVIDERS: PCP Internal Medicine; Visit Provider Physician Assistant Medical | DX: R19.7 Diarrhea, unspecified (principal); E03.9 Hypothyroidism, unspecified; E60 Dietary zinc deficiency; E55.9 Vitamin D deficiency, unspecified; J15.9 Unspecified bacterial pneumonia; R53.83 Other fatigue | CPT/HCPCS: 96127; 99212 ==

== ENCOUNTER 2025-02-17 10:24 | Outpatient (AMB) | payer OTHER, SELFPAY ==
--- NOTE | 2025-02-17 10:27 | MHC.OFFVIS ---
Vital Signs 02/17/25 10:30 Height 4 ft 11 in Weight 206 lb BMI 41.6 Intake Visit Reasons: Preop RT Shld 02/25/25 Intake Note: Marita is a 69 year old female who presented with complaints of progressively worsening right shoulder pain and stiffness. She describes her pain as sharp in nature. Her pain has gotten worse over the last few years in spite of continued non operative treatments. She has had cortisone injections in the past which gave her minimal relief. She has also tried Tylenol and anti-inflammatory medicines which gave her only mild relief. The patient states that she has difficulty lifting her right hand above shoulder height. Allergies latex [LATEX] Allergy (Intermediate, Verified 02/17/25 10:27) RASH oxycodone Adverse Reaction (Severe, Verified 02/17/25 10:27) Itching Medication List - Last Reconciled 02/17/25 by Maciej Tran MD Advair HFA 230-21 mcg/actuation (fluticasone propion-salmeterol) 2 puffs inhalation Q12H NS albuterol sulfate 90 mcg/actuation (Proair Digihaler) 2 inhalations inhalation Q4H PRN albuterol sulfate 2.5 mg (3 mL) inhalation Q6H PRN 30 days atorvastatin 20 mg PO DAILY 90 days buspirone 10 mg PO TID 30 days cholecalciferol (vitamin D3) 50 mcg PO DAILY 90 days commode As directed CPAP (CPAP Machine/Device) autoPAP 6-16 cmH2O cyanocobalamin (vitamin B-12) (Vitamin B-12) 1,000 mcg PO DAILY escitalopram oxalate 20 mg PO BEDTIME 90 days furosemide 40 mg PO DAILY levothyroxine 50 mcg PO DAILY 90 days lorazepam 0.5 mg PO DAILY PRN metoprolol succinate ER 25 mg PO DAILY 90 days miscellaneous medical supply GRAB BAR 18 miscellaneous medical supply toilet safety frame nebulizers (AeroEclipse II Nebulizer) As directed nystatin 1 appl topical BID PRN 2 weeks ondansetron 8 mg PO Q8H PRN 7 days oxycodone-acetaminophen 7.5-325 mg 1 tab PO Q8H PRN 30 days [showerhead As directed] emmett (Ultra-Light Rollator mis) As directed zinc acetate (Galzin) 50 mg PO DAILY PFSH Medical History Low phosphate levels Fatigue Bacterial pneumonia Vitamin D deficiency Zinc deficiency Diarrhea DORA on CPAP Asthma exacerbation, mild SOB (shortness of breath) Cough Family history of lupus anticoagulant disorder Gallstones Elevated LFTs Cholecystitis with cholelithiasis Acute pancreatitis Constipation Colon cancer screening Abdominal pain Preoperative cardiovascular examination Acute hypokalemia Anemia Back pain Neck pain Foot pain, bilateral Left shoulder pain Right shoulder pain Right hip pain Wound drainage Dyspnea Encounter for preoperative pulmonary examination Right lower lobe pneumonia Bronchitis Pneumonia Dyspnea Moderate persistent asthma Dizziness Hair loss Severe major 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 psychotic features CKD (chronic kidney disease) stage 3, GFR 30-59 ml/min Acute hypoxemic respiratory failure Sepsis Acute kidney injury Morbid obesity Common bile duct dilation Elevated TSH Hair loss Murmur Mild recurrent major depression B12 deficiency Dyslipidemia Lumbar degenerative disc disease History of vitamin D deficiency History of pernicious anemia Arthritis History of trigger finger History of left bundle branch block (LBBB) On beta mel at home Breast cancer Mild aortic stenosis Sleep apnea Tinnitus Chronic pain HTN (hypertension) Asthma Depression Surgical History History of cholecystectomy History of cardiac cath Hx of bilateral cataract extraction History of total right knee replacement (TKR) History of total left knee replacement (TKR) History of dilation and curettage Hx of colonoscopy Hx of esophagogastroduodenoscopy History of lymph node dissection of left axilla S/P lumpectomy, left breast Family History Father Prostate cancer Hypertension Mother Skin cancer Dementia Diabetes Daughter Lupus Maternal Grandmother Diabetes Hypertension Maternal Grandfather No problems noted. Paternal Grandmother No problems noted. Paternal Grandfather Cancer Brother Prostate cancer Social History Household Members: Spouse and Family Household Members Other:: Graddaughter Housing: House Do you presently have visiting nurse or other home services: Yes Alcohol intake: never Patient Tobacco Use Status: Never used Tobacco e-Cigarette/Vaping Use: Never Used Second Hand Smoke Exposure: No Substance Use Type: Marijuana Advance Directives Date on File: 08/05/22 service: No Current occupational status: disabled Cognitive needs: Yes (Cane) Hearing needs: No Vision needs: Yes (Glasses) Physical Exam Vital Signs: BMI result Body Mass Index 41.6 Const Other: Well-nourished well-developed very friendly female awake alert and oriented x3 in no acute distress Extrem Other: Right shoulder examination shows decreased active and passive range of motion when compared to her left shoulder, 4+ out of 5 strength with supraspinatus testing, positive impingement signs, tenderness over her acromioclavicular joint, no instability Results Reviewed Results Reviewed: MRI of the patient's right shoulder show severe acromioclavicular joint narrowing, a type 2 acromion, signal change within the supraspinatus tendon most likely due to adhesive capsulitis Assessment & Plan Assessment & Plan (1) Impingement of right shoulder: Code(s): M25.811 - Other specified joint disorders, right shoulder Category: Medical Plan Ms. Murray presents with right shoulder pain and stiffness due to impingement syndrome, acromioclavicular joint arthritis and adhesive capsulitis. I had a lengthy discussion with the patient regarding the treatment options. At this point she has failed continued non operative treatments. The risks and benefits of right shoulder surgery were discussed at length with the patient. The patient wishes to proceed with surgery. Surgery will most likely involve right shoulder arthroscopic distal clavicle excision, right shoulder arthroscopic acromioplasty, right shoulder arthroscopic capsular release and right shoulder manipulation under anesthesia. The patient was given a prescription for Dilaudid at her preoperative appointment. She will follow-up as instructed. Feel free to call me at any time should questions regarding her orthopedic management arise. I spent 22 minutes in reviewing the patient's records and imaging studies, seeing the patient and documenting in the medical record. Medications: New hydromorphone (Dilaudid) Partial Fill upon patient request. Take 1/2 to 1 tab every 4 hours as needed for pain following your right shoulder surgery. 4 mg PO Q4H PRN 20 tabs 0RF pain Coding Level of Care Code Est Pt Level 3 (53766) Complex EM visit Add On G2211 Diagnoses Impingement of right shoulder M25.811
[2025-02-17 10:30] VITALS: BMI 41.6
--- OUTSIDE RECORDS SUMMARY | 2025-02-17 11:50 | XMS_ITS | Encounter Summary ---
Author Organization [facility] Address [address] [place] [address] Care Team Providers Care Millroom Supervisor Name Role Phone Pcp, No Primary Care Provider Unavailabl e Adrianna Sharp MD Primary Care Provider [phone] Encounter Details Date Type Department Care Team (Late st Contact Info) Description 04/28/2023 Scanned Document [facility] Emergency Department [address] [place] [address] Provider, Generic Social History Tobacco Use Types [...] place to sleep or slept in a prison (including now)? No 04/29/2023 Comments Unknown Sex and Gender Information Value Date Recorded Sex Assigned at Female 04/28/2023 8:47 PM EDT Legal Sex Female 3:18 PM EDT Gender Identity Female 04/28/2023 8:47 PM EDT Sexual Orientation Heterosexual (straight) 04/28 8:47 PM EDT COVID-19 Exposure Response Date Recorded In the last 10 days, have yo u been in contact with someone who was confirmed or suspected to have Coronavirus/COVID-19? No / Unsure 04/28/2023 8:50 PM EDT documented as of this encounter Functional Status * Audit-C Score Answer Date of Assessment Author 0 04/28/2023 7:47 PM EDT Yuki Garcia RN * Question Answer Date of Assessment Author Q1: How often do you have a drink containing alcohol? Never 04/28/2023 7:47 PM EDT Yuki Garcia RN Q2: How many drinks containing alcohol do you have on a typical day when you are drinking? Patient does not drink 04/28/2023 7:47 PM EDT Yuki Garcia RN Q3: How often do you have six or more drinks on one occasion? Never 04/28/2023 7:47 PM EDT Yuki Garcia RN documented as of this encounter Plan of [...] documented as of this encounter Care Teams Millroom Supervisor Relationship Specialty Start Date End Date Pcp, No [address] [place] [address] PCP - General 04/28/23 04/28/23 Adrianna Sharp MD [address] [place] [address] PCP - General Family Medicine 04/29/23 documented as of this encounter
--- OUTSIDE RECORDS SUMMARY | 2025-02-17 11:50 | XMS_ITS | Clinical Summary ---
Author Organization [facility] Address [address] [place] [address] Care Team Providers Care Bag Bailer Name Role Phone Adrianna Sharp MD Primary Care Provider [phone] Allergies Active Allergy Reactions Criticality Noted Date Comments Latex Hives Medium 04/29/2023 Oxycodone Itching Low 05/05/2023 Generalized itching of the back Medications metoPROLOL SUCCINATE (TOPROL-XL) 25 MG 24 hr tablet Take 1 tablet (25 mg total) by mouth daily. 3 Active Advair HFA 230-21 MCG/ACT inhaler 3 Active ferrous sulfate 324 (65 Fe) MG Tablet Delayed Response Take 1 tablet (324 mg total) by mouth daily. 3 Active escitalopram (LEXAPRO) 10 MG tablet Take 1 tablet (10 mg total) by mouth daily. 3 Active ALPRAZolam (XANAX) 0.5 MG tablet TAKE 1 TABLET BY MOUTH DAILY FOR 1 DAY. TAKE 30 MINUTES BEFORE DENTAL PROCEDURE 3 Active atorvastatin (LIPITOR) 20 MG tablet 1 tablet (20 mg total). 3 Active furosemide (LASIX) 40 MG tabletIndication s:Acute gastric ulcer without hemorrhage or perforation Take 1 tablet (40 mg total) by mouth daily. Do not start before May 07, 2023. 30 tablet 3 Active cholecalciferol (CHOLECALCIFEROL ) 25 MCG (1000 UT) tabletIndication s:Acute gastric ulcer without hemorrhage or perforation Take 1 tablet (1,000 Units total) by mouth daily. Do not start before May 07, 2023. 30 tablet 3 Active cyanocobalamin (VITAMIN B12) 1000 MCG tabletIndication s:Acute gastric ulcer without hemorrhage or perforation Take 1 tablet (1,000 mcg total) by mouth daily. Do not start before May 07, 2023. 30 tablet 3 Active PANTOprazole (PROTONIX) 40 MG EC tabletIndication s:Acute gastric ulcer without hemorrhage or perforation Take 1 tablet (40 mg total) by mouth 2 times a day. 60 tablet 3 Active sucralfate (CARAFATE) 1 GM/10ML suspensionIndica tions:Acute gastric ulcer without hemorrhage or perforation Take 10 mL (1 g total) by mouth 4 (four) times a day before meals and nightly. On an empty stomach. 1200 mL 3 Active benzonatate (TESSALON) 100 MG capsuleIndicatio ns:COVID Take 1 capsule (100 mg total) by mouth 3 (three) times a day as needed for cough. 20 capsule 3 Active guaiFENesin (MUCINEX) 600 MG 12 hr tabletIndication s:COVID Take 1 tablet (600 mg total) by mouth 2 (two) times a day. 14 tablet 3 Active sulfamethoxazole -trimethoprim (BACTRIM DS,SEPTRA DS) 800-160 MG per tabletIndication s:Liver abscess Take 1 tablet by mouth every 12 (twelve) hours around the clock. 42 tablet 3 Active Active Problems Problem Noted Date Diagnosed [...] place to sleep or slept in a penitentiary (including now)? No 05/25/2023 Comments No Sex and Gender Information Value Date Recorded [...] this topic Medical Devices Explanted Type Area Metallurgical Specialist Device Identifier Shelf Expiration Date Model / Serial / Lot [id number] Stent Pancreatic 5fr 5cm Pigtail Curve Radopq Push Cath - [id number] Implanted:Qty: 1 on 04/29/2023 by Bryan Chester MD at [facility] Explanted:Qty: 1 on 05/06/2023 by Kristyn Paez MD at [facility] Stent N/A: Bile Duct [employer] [id number] 12/30/2025 [id number] / / [id number] Insurance [facility] [employer] [facility] Advance Directives * Full Code (Latest Code Status on File) Date Activated Date Inactivated Comments 05/24/2023 3:08 PM Question Answer Comments Decision Thoroughly Discussed with: Patient * Full Code Date Activated Date Inactivated Comments 04/28/2023 9:15 PM 05/24/2023 2:10 PM Care Teams Bag Bailer Relationship Specialty Start Date End Date Adrianna Sharp MD [address] [place] [address] PCP - General Family Medicine 04/29/23
--- OUTSIDE RECORDS SUMMARY | 2025-02-17 11:50 | XMS_ITS | Continuity of Care Document ---
Author Organization [employer] [employer] Address [address] [place] [id number] Care Team Providers Care Entry Level Manufacturing Engineer Name Role Phone HIM CCA OTHER AMBROSE JAMES Primary Care Provider Assessment Encounter Date Assessment Date Assessment LastModified by Organization Details LastModified Time 02/16/2025 02/16/2025 Impression: 69yo/f with multiple medical problems as above notably breast CA, hypothyroidism recently started on levothyroxine, presenting with oropharyngeal and neck symptoms. Patient states over the past week she has been experiencing sore throat symptoms of painful swallowing, some clear rhinorrhea, but then also went on to develop anterior neck pain and tenderness. Seen by medic in home, patient is awake, alert, in no distress. Vitals are re-assuring, she is handling her secretions and speaking in full sentences, breathing comfortably. She however describes painful swallowing, limiting herself to liquids only, as well as anterior neck pain and tenderness on exam. No obvious masses, patient has redundant soft tissue and difficult to assess completely. No associated meningismus, stiffness, crepitus. No obvious lymphadenopathy. Denies other ROS. Plan: Patient unfortunately has focal neck tenderness on her anterior neck exam today which is an abnormal finding and without other obvious explanation for the medic. She would benefit from in person evaluation in [facility] for consideration of imaging including CT with IV contrast to ensure no mass or abscess today. Patient is reluctant to go to ED, states she would prefer to followup with her PCP to arrange CT scan. Patient is awake, alert, oriented x3 and is able to state back to us the concerns we have including that she could have underlying undiagnosed medical condition that could progress and cause subsequent harm or disability if untreated. Patient is able to state she understands, and will ultimately be discharged from visit against medical advice. Primary care, consider neck imaging Disposition: KATEY [email or web address] Not available 02/16/2025 12:28:51 Plan of Treatment Reminders Order Date Submit Date Provider Last Modified By Organization Details Last Modified Time Details Appointments None recorded. Lab rapid SARS CoV 2 Ag, QL IA, respiratory specimen [address], [phone] 5 14:26:53 rapid flu (A+B) [address], [address] 5 14:26:08 rapid strep group A, throat [address], [address] [place] [address] 14:28:05 Referral None recorded. Procedures None recorded. Surgeries None recorded. Imaging None recorded. Medication Orders None recorded. Patient TargetsNo targets recorded. Patient InstructionsNo instructions [...] Name and Address Organization Details Recorded Time 86612 oxycodone medicatio n Not available Not available Not available 10/07/2024 7804 RxNorm Not Available [facility] - production 4 16:21:18 53858 latex environme nt,medica tion Not available Not available Not available 10/07/2024 61052 91 RxNorm Not Available [facility] - production 16:21:18 Medications Name Sig Start Date Stop [...] prednisone 20 mg tablet TAKE 2 TABLETS ORALLY DAILY FOR 5 DAYS active Not Available Not Available No t Available cyanocobalam in (vit B-12) 1,000 mcg tablet TAKE 1 TABLET BY MOUTH EVERY DAY active Not Available Not Available No t Available lorazepam 0.5 mg tablet TAKE 2 TABLETS BY MOUTH DAILY NEEDED FOR ANXIETY FOR 1 DAY active Not Available Not Available No t Available levothyroxin e 50 mcg tablet TAKE 1 TABLET BY MOUTH DAILY active Not Available Not Available Not Available oseltamivir 75 mg capsule 75 MG [...] Not Available Not Available No t Available amoxicillin 875 mg-potassium clavulanate 125 mg tablet TAKE 1 TABLET BY MOUTH TWICE A DAY FOR 10 DAYS active Not Available Not Available No [...] N ot Available Vitals Date Recorded Body temperature Heart rate Oxygen saturation Oxygen saturation in Arterial blood by Pulse oximetry Body weight Body height Respiratory rate Systolic blood pressure Diastolic blood pressure Provider Name and Address Organization Details Last Updated DateTime 5 98.8 [degF] 72 /min 95 % 95 % 33821.1 36 g 149.86 cm 18 /min 143 mm[Hg] 85 mm[Hg] Not Available [facility] - production 5 10:50:27 Social History None recorded. Functional Status None recorded. Mental Status None recorded. Family History Nothing Reported. Medical History No medical history recorded. Gynecological HistoryNo gynecological history recorded. Obstetrics History GPAL:G 0 P 0 0 0 0 Past Encounters Encounter ID Performer Location Encounter Start Date Encounter Closed Date Diagnosis/Indication Diagnosis SNOMED-CT Code Diagnosis ICD10 Code Diagnosis Note [id number] Elio Oconnell MD [facility] [address] [place] [id number] 02/16/2025 10:50:19 02/16/2025 13:17:44 Neck pain 44343071 M54.2 Health Concerns Section Related Observation LastModified by Organization Detai ls LastModified Time None Recorded Concern Status LastModified by Organization Details LastModified Time None Recorded Payers Encounter Date Sequence Insurance Name Policy Number Policy Taylor Covered Member ID Taylor Member ID Guarantor Name 02/16/2025 1 [facility] - DOS ON OR AFTER 2023 - DUAL ELIGIBLE - PENITENTIARY OPTIONS AND ONE CARE (MEDICARE REPLACEMENT/ADV ANTAGE - HMO) Marita Murray [id number] Marita Murray Notes Date Note Type Note Provider Name and Address Organization Details Recorded Time 02/16/2025 text/html CRC Nurse Triage Notes (Haydee Moran): Reason For Request: Patient has a sore Throat and Tongue pain. Patient Reports: History of asthma, increased use of inhaler Denies: Increased work of breathing/labored ? with or without fever Unable to speak in full sentences without distress Discoloration of skin -cyanosis Needs to sleep sitting up, can? t catch breath Shortness of breath in setting of confusion Cough, fever greater than 2 days COPD Sputum increase Cough Shortness of breath with exertion Pain with inspiration Chief Complaints: Common Cold PMH: Asthma, Arrhythmias (e.g., Atrial Fibrillation), Cancer, Sleep Apnea, Hypothyroidism PMH Reviewed at 02/16/2025:47 Allergies Reviewed at 02/16/2025:47 Pain Assessment: Level 10 out of 10 Comments: 69 y.o female complains of Common Cold Pt calling for sore throat for a week. She denies cough, fever/ chills/ nausea / vomiting. She not been able to eat or drink. She has been taking tylenol. She c/o pain on her tongue, she denies swelling or white patches or color, just pain. She is able to swallow and her own secretions. She started medication for thyroid, over a month ago but no other changes. She is not on a blood thinner / PMH breast cancer in remission I provided information on the mobile health provider response time and advised the patient and/or caregiver to monitor reported signs and symptoms. I discussed the warning signs of when to seek emergency care. Director Of Casino Organization Information for Yamile Cary Business Legal Name: [employer]? Address: [address] [place] [address], Pharmacy Clerk: Constantin RHOADES No.: [id number] Director Of Casino POC Test Results from Yamile Cary Rapid COVID antigen (10:48:16) COVID: - Rapid influenza antigen (10:48:17) Flu: - Rapid strep test (10:48:18) Strep: - .................... .................... .................... .................... .................... .................... .................... . Director Of Casino Note From Yamile Cary: Sent to a call for a pt complaining of sore throat and tongue pain. SC8 arrives on scene, pt is alert and oriented, airway is patent. Pt has history of breast CA (spread to lymph nodes), Asthma, A-fib, and Hypothyroidism. Pt states she started Levothyroxine approx 1 month ago. Pt complains of sore throat/painful swallowing approx 1 month ago. Pt complains of worsening sore throat/painful swallowing and runny nose with clear mucus x 1 week. Pt states she is able to drink fluids, but is limiting food due to painful swallowing. Pt states she missed her PET scan last year. Pt denies sloan, dizziness, cough, post nasal drip, cp, sob, n/v/d, abd pain, fever, or chills. BP:143/85, P:72, RR:18, SpO2:95% RA, T:98.8; Head: unremarkable; Oropharynx: erythema, no edema/exudate noted, canker sores noted on sides of tongue; Neck: anterior neck tenderness, difficulty checking for any masses/enlarged lymph nodes due to large neck(pt denies noting neck swelling); Lung sounds: clear bilaterally; Abdomen: soft, non-tender, no distention; Back: unremarkable; Extremities: unremarkable; Skin: pink, warm, dry; Rapid covid/flu test: neg; Rapid strep test: neg; C consulted and pt is advised she should be transported to ED for CT scan due to neck tenderness. Pt refuses transport to ED. Risks of refusing transport explained. Pt verbalizes understanding and signs refusal form. Pt advised to follow up with PCP. Pt states she will call PCP today to request outpt CT scan. Red flags discussed. Pt has no further questions. .................... .................... .................... .................... .................... .................... .................... . [facility] Consulted: Elio Oconnell .................... .................... .................... .................... .................... .................... .................... . Disposition: Fulfilled Elio Oconnell MD [address] [place] [address],[address] [facility], [place], [address], ELENITA - [employer] JACKSON 02/16/2025 12:29:21 OBGyn Episode No OBEpisode recorded.
--- OUTSIDE RECORDS SUMMARY | 2025-02-17 11:50 | XMS_ITS | Clinical Summary ---
Author Organization [facility] Address [address] [address] Phone Care Team Providers Care Freight Flow Sales Leader Name Role Phone Adrianna Sharp MD Primary Care Provider [phone] Allergies Active Allergy Reactions Criticality Noted Date [...] Visit [facility] [address] [facility] [address] [place] [address] Dayanara Marcus ARNP [address] [phone] Health Maintenance Due Date Last Done Comments Breast Cancer Screening 1955 Pneumococcal Vaccine: 50+ Ye ars (1 of 2 - PCV) 1972 Colorectal Cancer Screening: Annual FOBT 2002 Colorectal Cancer Screening: Colonoscopy 2002 Colorectal Cancer Screening: Sigmoidoscopy 2002 Influenza Vaccine (Season Ended) 2025 Hepatitis B Vaccine Aged Out No longe r eligible based on patient's age to complete this topic Insurance MCR ([id number]) ([id number]) Care Teams Freight Flow Sales Leader Relationship Specialty Start Date End Date Adrianna Sharp MD [address] [place] [address] [address] [facility] PCP - General Internal Medicine 06/25/23
--- OUTSIDE RECORDS SUMMARY | 2025-02-17 11:50 | XMS_ITS | Data Portability ---
Author Organization [employer] Address [address] [place] [address] Care Team Providers Care Turn Operator Name Role Phone HIM CCA OTHER AMBROSE JAMES Primary Care Provider [phone] Assessment Encounter Date Assessment Date Assessment LastModified [...] to allow for adequate healing. Precautions reviewed. [email or web address] Not available 10/07/2024 21:49:22 01/08/2025 01/08/2025 Ms. Murray is a [age] yo F with Asthma, Arrhythmias (e.g., Atrial [...] OTC medications advised and will continue to university counselor on safe use for tylenol and/or [...] Assessment and Plan as documented by the [employer] Dehydration Reactor Operator. We discussed the diagnostic uncertainty of home visits and the risk associated with this. In this case the patient and I felt this to be an acceptable and reasonable amount of risk given the benefit of avoiding an ED visit. The patient given the opportunity to ask questions. Follow up with primary care was recommended, as needed. Advised if develops CP/severe SOB/turning blue/uncontrolled n/v/d or black/bloody emesis or stool/ AMS/ syncope/ high fever unresponsive to APAP to call 911- verbalized understanding of instruction. [email or web address] Not available 01/08/2025 12:22:55 02/16/2025 02/16/2025 Impression: 69yo/f with multiple medical [...] would benefit from [facility] person evaluation [facility] ED for consideration of imaging including CT [...] Primary care, consider neck imaging Disposition: KATEY Not available 02/16/2025 12:28:51 Plan of Treatment Reminders Order Date Submit Date Provider Last Modified By Organization Details Last Modified Time Details Appointments None recorded. Lab rapid SARS CoV 2 Ag, QL IA, respiratory specimen 2024 025 [facility], [address] [place] [address], [id number] 5 14:26:53 rapid flu (A+B) 2024 025 [facility], [address] [place] [address], [id number] 5 14:26:08 rapid strep group A, throat 2024 025 [facility], [address] [place] [address], [id number] 5 14:28:05 rapid flu (A+B) [address], [address] [place] [address], [id number] 5 12:22:27 rapid SARS CoV 2 Ag, QL IA, respiratory specimen [address], [address] [place] [address], [id number] 5 12:22:26 rapid flu (A+B) [address], [address] [place] [address], [id number] 5 14:16:35 rapid SARS CoV 2 Ag, QL IA, respiratory specimen [address] [place] [address], [address] [place] [address], [id number] 5 14:16:35 Referral None recorded. Procedures None recorded. Surgeries None recorded. Imaging None recorded. Medication Orders oseltamivir 75 mg capsule 2024 025 [id number], [address] [facility], [place], [address], 5 12:22:25 Tamiflu 75 mg capsule 2024 025 [facility], [address] [place], [address], 5 12:22:25 ipratropium 0.5 mg-albutero l 3 mg (2.5 mg base)/3 mL nebulizatio n soln 2024 025 [facility] #0373, [address] [place], [address], 5 14:16:35 prednisone 10 mg tablet 2024 025 [facility]armacy #0373, [address] [place], [address], 5 14:18:56 prednisone 20 mg tablet 2024 025 [facility] #0373, [address] [place], [address], 5 14:18:54 clotrimazol e 1 % topical cream 2023 024 [facility]armacy #0373, [address] [place], [address], 4 20:06:27 Patient TargetsNo targets recorded. Patient InstructionsNo instructions recorded. Reason for Referral None Reported. Results Created Date Observation Date Name Description Value Unit Range Abnormal Flag Note LastModifiedBy Organization Detail LastModifiedTime 01/09/2001/08/2025 rapid SARS CoV 2 Ag, QL IA, respi rator y speci men rapid SARS CoV 2 Ag, QL IA, respiratory specimen negati ve Not Available [facility] [address] [place] [address], [id number] 01/08/2025 11:33:21 01/09/20 25 01/08/2025 rapid flu (A+B) Flu positi ve Not Available [facility] [address] [place] [address], [id number] 01/08/2025 11:33:21 Result Notes None recorded. Medical Equipment None Reported. Allergies Allergen ID Allergen Name Allergen Category Reaction Reaction Severity Criticality Documentation Date Start Date Code Code System Note Provider Name and Address Organization Details Recorded Time 31423 oxycodone medicatio n Not available Not available Not available 10/07/2024 7804 RxNorm Not Available [facility] 4 16:21:18 45188 latex environme nt,medica tion Not available Not available Not available 10/07/2024 01321 91 RxNorm Not Available [facility] [...] /min 140 mm[Hg] 82 mm[Hg] Not Available [employer] 4 20:04:20 Date Recorded Body weight Respiratory rate Heart rate Body height Oxygen saturation Oxygen saturation in Arterial blood by Pulse oximetry Body temperature Systolic blood pressure Diastolic blood pressure Provider Name and Address Organization Details Last Updated DateTime 5 77327.3 2 g 18 /min 68 /min 147.32 cm 96 % 96 % 98 [degF] 140 mm[Hg] 85 mm[Hg] Not Available [employer] (acquired by [employer] in 2014)[facility] [employer] 5 14:10:41 Date Recorded Oxygen saturation Oxygen saturation in Arterial blood by Pulse oximetry Respiratory rate Body temperature Body weight Body height Heart rate Systolic blood pressure Diastolic blood pressure Provider Name and Address Organization Details Last Updated DateTime 5 90 % 90 % 20 /min 103.5 [degF] 36367.1 36 g 149.86 cm 100 /min 119 mm[Hg] 75 mm[Hg] Not Available [facility] 5 11:37:03 Date Recorded Body temperature Heart rate Oxygen saturation Oxygen saturation in Arterial blood by Pulse oximetry Body weight Body height Respiratory rate Systolic blood pressure Diastolic blood pressure Provider Name and Address Organization Details Last Updated DateTime 5 98.8 [degF] 72 /min 95 % 95 % 87993.1 36 g 149.86 cm 18 /min 143 mm[Hg] 85 mm[Hg] Not Available [facility] 10:50:27 Social History None recorded. Functional Status None recorded. Mental Status None recorded. Family History Nothing Reported. Medical History No medical history recorded. Gynecological HistoryNo gynecological history recorded. Obstetrics History GPAL:G 0 P 0 0 0 0 Past Encounters Encounter ID Performer Location Encounter Start Date Encounter Closed Date Diagnosis/Indication Diagnosis SNOMED-CT Code Diagnosis ICD10 Code Diagnosis Note [id number] MAU FLYNN MD [facility] [address] [place] [phone] 10/07/2024 20:04:14 10/07/2024 23:05:27 Tinea corporis 69767281 B35.4 [id number] Sanam Russell MD [facility] [address] [place] [phone] 11/02/2024 14:06:32 11/02/2024 22:25:51 Upper respiratory infection [id number] J06.9 Evaluation in the field was performed by my metropolitan editor colleague, as noted above, I provided real-time direction and supervisio n for this visit. 68yo F PMHx asthma p/w 2 weeks URI symptoms including cough, rhinorrhea , and increased wheezing without fevers, chest pain. Improved with inhalers. Reports she usually receives antibiotic s every year for this. Denies hx tobacco use. On metropolitan editor eval VS sat 96% RA normal RR. [...] shortness of breath, cough, chest pain, fever. [id number] SANDY MCPHERSON MD [facility] [address] [place] [phone] 01/08/2025 11:31:19 01/10/2025 13:55:12 Viral syndrome [id number] B34.9 [id number] Elio Oconnell MD [facility] [address] [place] [phone] 02/16/2025 10:50:19 02/16/2025 13:17:44 Neck pain [id number] M54.2 Health Concerns Section Related Observation LastModified by Organization Detai ls LastModified Time None Recorded Concern Status LastModified by Organization Details LastModified Time None Recorded Advance Directives Directive None Recorded Payers Encounter Date Sequence Insurance Name Policy Number Policy Taylor Covered Member ID Taylor Member ID Guarantor Name 10/07/2024 1 [facility] [employer] - DOS ON OR AFTER 2023 - DUAL ELIGIBLE - CARE HOME OPTIONS AND ONE CARE (MEDICARE REPLACEMENT/ADV ANTAGE - HMO) Marita Murray [id number] Marita Howelltiz 11/02/2024 1 [facility] [employer] - DOS ON OR AFTER 2023 - DUAL ELIGIBLE - CARE HOME OPTIONS AND ONE CARE (MEDICARE REPLACEMENT/ADV ANTAGE - HMO) Marita Murray [id number] Marita Mendiola Murray 01/08/2025 1 [facility] [employer] - DOS ON OR AFTER 2023 - DUAL ELIGIBLE - CARE HOME OPTIONS AND ONE CARE (MEDICARE REPLACEMENT/ADV ANTAGE - HMO) Marita Murray [id number] Marita Mendiola Murray 02/16/2025 1 [facility] [employer] - DOS ON OR AFTER 2023 - DUAL ELIGIBLE - CARE HOME OPTIONS AND ONE CARE (MEDICARE REPLACEMENT/ADV ANTAGE - HMO) Marita Murray [id number] Marita Murray Notes Date Note Type Note Provider Name and Address Organization Details Recorded Time 10/07/2024 text/html [facility] Nurse Triage Notes (Safia Norton - RN): Reason For Request: Pt reporting severe rash [...] .................... .................... .................... .................... .................... .................... . [facility] Operator Note From Zaki Vega: Dispatched to the [...] .................... .................... .................... .................... .................... .................... . [facility] Consulted: Mau Flynn .................... .................... .................... .................... .................... .................... .................... . Disposition: Fulfilled MAU FLYNN MD [address] [place] [address],[address], [place], [phone], [employer] 10/07/2024 21:49:34 11/02/2024 text/html [facility] Nurse Triage Notes (Erika Noel - RN): Reason For Request: Patient feels weak, and general illness cold like symptoms, congestion in chest, Coughing problems. Chief Complaints: Cough, Weakness PMH: Asthma, Arrhythmias (e.g., Atrial Fibrillation), Cancer, Sleep Apnea PMH Reviewed at 11/02/2024 - 12:10 Allergies Reviewed at 11/02/2024 - 12:10 Comments: Patient reports cold sx's x2 weeks [...] s/s and seek emergency treatment if needed. [facility] [employer] Operator Organization Information for Yamile Cary [employer] Legal Name: [employer]? Address: [address] [place] [address], Crusher Setter: Constantin Machado MD NAVEEN No.: [id number] [employer] Operator POC Test Results from Yamile Cary [facility] Rapid influenza antigen (14:11:38) Flu: - Rapid COVID antigen (14:11:39) COVID: - .................... .................... .................... .................... .................... .................... .................... . [facility] [employer] Operator Note From Yamile Cary: Sent to a [...] .................... .................... .................... .................... .................... .................... . [facility] Consulted: Sanam Russell .................... .................... .................... .................... .................... .................... .................... . Disposition: Fulfilled Sanam Russell MD [address] [facility],[address], [place], [address], [facility] BRITTANY PEREZ 11/02/2024 16:46:28 01/08/2025 text/html [facility] Nurse Triage Notes (Grupp, Eugenia): Reason For Request: cough/SOB/fever/naus ea Patient Reports: [...] Atrial Fibrillation), Cancer, Sleep ApneaPMH Reviewed at 01/08/2025Allergies Reviewed at 01/08/2025:Comments: Member called in complaining of congestion, shortness [...] emergency treatment if needed. Ronan Fernandez RN [employer] Operator Organization Information for Pancho Mendez Business Legal Name: [employer]? Address: [address] [place] [address], Crusher Setter: Constantin Machado MD CLIA No.: [id number] [employer] Operator POC Test Results from [facility] Rapid COVID antigen (11:44:34) COVID: - Rapid influenza antigen (11:44:38) Flu: +A Attachments uploaded as part of this test result can be found under Documents section. iSTAT Chem8+ (12:03:59) Na: 139 mEq/L K: 4.2 mEq/L Cl: 103 mEq/L iCa: 1.24 mmol/L TCO2: 28 mmol/L Glu: 118 mg/dL BUN: 11 mg/dL Crea: 0.9 mg/dL Hct: 38 % Hb: 12.9 g/dL A mmol/L Cartridge Number: [id number] Attachments uploaded as part of this test result can be found under Documents section. .................... .................... .................... .................... .................... .................... .................... . [facility] Operator Note From Pancho Mendez: JESSICA makes pt contact. She is lying R lateral on the sofa in the living room of a small and cluttered home. She is conscious and alert and watching [facility] on approach. 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 [facility] obtains vital signs and pt is swabbed for COVID/flu and physically assessed. Lung sounds are rhonchi in the larger airways, but good air movement in the bases. Pt's skin is warm to touch and dry, and she is found to be febrile w/ low SpO2 at 90% RA. SpO2 improves to 93% when she sits up. Pt tests positive for Flu A. [facility] contacts [facility] and discusses the above. [facility]iflu dosing. IV access is attempted [...] and results are uploaded to the platform. [facility] recontacts [facility] and [facility] orders 75mg Tamiflu PO. [facility] administers one 75mg capsule Tamiflu to pt and instructs her to seek ED care if she cannot get her fever down and keep it down, she develops uncontrollable n/v/d, continues to feel sob w/ cp, or feels like she is going to or does pass out. [facility] also instructs pt to continue taking 1G Tylenol every 8 hours for fever and using her albuterol nebulizer every 4 hours as needed. Pt gives her verbal understanding. [facility] is clear. Report completed by ANTONIO Mendez [id number]. [facility] Lab Orders: rapid flu (A+B): Performed rapid SARS CoV 2 Ag, QL IA, respiratory specimen: Performed [facility] Medication Orders: oseltamivir 75 mg capsule: Administered .................... .................... .................... .................... .................... .................... .................... . [facility] Consulted: Sandy Mcpherson .................... .................... .................... .................... .................... .................... .................... . Disposition: Fulfilled SANDY MCPHERSON MD [address] [facility],[address], [place], [address], [employer] 01/08/2025 14:28:06 02/16/2025 text/html [facility] Nurse Triage Notes (Haydee [...] Cancer, Sleep Apnea, Hypothyroidism PMH Reviewed at 02/16/2025: Allergies Reviewed at 02/16/2025:47 Pain Assessment: Level [...] signs of when to seek emergency care. [facility] Operator Organization Information for Yamile Cary Business Legal Name: [employer] Address: [address] [place] [id number], Crusher Setter: Constantin Machado MD CLIA No.: [id number] [facility] [employer] Re[employer] Operator POC Test Results from Yamile Cary Rapid COVID antigen (10:48:16) COVID: - Rapid influenza antigen (10:48:17) Flu: - Rapid strep test (10:48:18) Strep: - .................... .................... .................... .................... .................... .................... .................... . [facility] Operator Note From Yamile Cary: Sent to a [...] .................... .................... .................... .................... .................... .................... . [facility] Consulted: Elio Oconnell .................... .................... .................... .................... .................... .................... .................... . Disposition: Fulfilled Elio Oconnell MD [address] [place] [address],[address], [place], [address], [employer] 02/16/2025 12:29:21 OBGyn Episode No OBEpisode recorded.
== END 2025-02-17 10:43 | disposition home or self-care (01) ==
LOC: HO.HOS 10:25
PROVIDERS: PCP Internal Medicine; Visit Provider Orthopaedic Surgery
DX: M25.811 Other specified joint disorders, right shoulder (principal)
CPT/HCPCS: 99024

== ENCOUNTER → 2025-02-17 10:24 | Outpatient (BNVA) | payer OTHER, SELFPAY | PROVIDERS: PCP Internal Medicine; Visit Provider Orthopaedic Surgery ==

== ENCOUNTER 2025-02-18 13:09 | Outpatient (AMB) | payer OTHER, SELFPAY ==
[2025-02-18 13:13] VITALS: BP 122/67; PULSE 84; O2SAT 95; BMI 42.0
--- NOTE | 2025-02-18 13:13 | MHC.OFFVIS ---
Vital Signs 02/18/25 13:13 Height 4 ft 11 in Weight 208 lb BMI 42.0 BP 122/67 Blood Pressure Location Rt brachial Position Sitting Pulse 84 Pulse Source Doppler Pulse Oximetry (%) 95 Oxygen Delivery Method Room Air Intake Visit Reasons: follow up after HD for clearance(last o.v 12/22/24) Intake Note: Pre-op for Right shoulder surgery scheduled for 02/25/25 Allergies latex [LATEX] Allergy (Intermediate, Verified 02/18/25 13:16) RASH oxycodone Adverse Reaction (Severe, Verified 02/18/25 13:16) Itching HPI HPI follow up after HD for clearance(last o.v 12/22/24): Details: 69-year-old lady, nonsmoker of tobacco products, uses marijuana now followed for asthma , orthopnea, and DORA. She has been using Advair and albuterol MDI with reasonable control of her symptoms, including improving orthopnea on increased dose of furosemide 40 mg daily. She also has been using CPAP with good control of her underlying sleep apnea symptoms. Patient did have follow-up 2D echocardiogram that shows somewhat reduced left ventricular ejection fraction of 48%. She does follow with [facility]. After the last office visit patient was hospitalized with influenza and post influenza pneumonia, but now she has recovered to her baseline. [facility] Medical History (Updated 02/18/25 @ 13:31 by Waldo Pop MD) Encounter for preoperative pulmonary examination DORA on CPAP Asthma Low phosphate levels Fatigue Bacterial pneumonia Vitamin D deficiency Zinc deficiency Diarrhea Asthma exacerbation, mild SOB (shortness of breath) Cough Family history of lupus anticoagulant disorder Gallstones Elevated LFTs Cholecystitis with cholelithiasis Acute pancreatitis Constipation Colon cancer screening Abdominal pain Preoperative cardiovascular examination Acute hypokalemia Anemia Back pain Neck pain Foot pain, bilateral Left shoulder pain Right shoulder pain Right hip pain Wound drainage Dyspnea Right lower lobe pneumonia Bronchitis Pneumonia Dyspnea Moderate persistent asthma Dizziness Hair loss Severe major 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 psychotic features CKD (chronic kidney disease) stage 3, GFR 30-59 ml/min Acute hypoxemic respiratory failure Sepsis Acute kidney injury Morbid obesity Common bile duct dilation Elevated TSH Hair loss Murmur Mild recurrent major depression B12 deficiency Dyslipidemia Lumbar degenerative disc disease History of vitamin D deficiency History of pernicious anemia Arthritis History of trigger finger History of left bundle branch block (LBBB) On beta mel at home Breast cancer Mild aortic stenosis Sleep apnea Tinnitus Chronic pain HTN (hypertension) Depression Surgical History History of cholecystectomy History of cardiac cath Hx of bilateral cataract extraction History of total right knee replacement (TKR) History of total left knee replacement (TKR) History of dilation and curettage Hx of colonoscopy Hx of esophagogastroduodenoscopy History of lymph node dissection of left axilla S/P lumpectomy, left breast Family History Father Prostate cancer Hypertension Mother Skin cancer Dementia Diabetes Daughter Lupus Maternal Grandmother Diabetes Hypertension Maternal Grandfather No problems noted. Paternal Grandmother No problems noted. Paternal Grandfather Cancer Brother Prostate cancer Social History Household Members: Spouse and Family Household Members Other:: Graddaughter Housing: House Do you presently have visiting nurse or other home services: Yes Alcohol intake: never Patient Tobacco Use Status: Never used Tobacco e-Cigarette/Vaping Use: Never Used Second Hand Smoke Exposure: No Substance Use Type: Marijuana Advance Directives Date on File: 08/05/22 service: No Current occupational status: disabled Cognitive needs: Yes (Cane) Hearing needs: No Vision needs: Yes (Glasses) Review of Systems Const Denies daytime sleepiness, Denies excessive sweating, Denies fatigue, Denies fever(s), Denies lethargy, Denies malaise, Denies night sweats, Denies snoring and Denies weight loss Eyes Denies blurry vision and Denies itchy eyes ENT Denies nasal congestion, Denies post nasal drip, Denies sinus pain, Denies sinus pressure and Denies other ( Thrush) Card Denies chest pain, Denies pedal edema, Denies dyspnea, Denies orthopnea and Denies paroxysmal nocturnal dyspnea Resp Denies cough, Denies hemoptysis, Denies excessive phlegm production, Denies dyspnea, Denies snoring and Denies wheezing GI Denies abdominal pain and Denies heartburn Musc Denies myalgias, Denies arthralgias and Denies joint swelling Skin/Breast Denies rash Neuro Denies memory loss and Denies seizure-like activity Psych Denies abnormal sleep pattern, Denies anxiety and Denies memory loss Endo Denies excessive sweating, Denies fatigue and Denies heat intolerance Natan/Lymph Denies easy bruising Aller/Immun Denies itchy eyes, Denies seasonal rhinorrhea and Denies wheezing Physical Exam Vital Signs: Last Vital Signs Pulse 84 02/18/25 13:13 BP 122/67 02/18/25 13:13 Pulse Ox 95 02/18/25 13:13 Oxygen Delivery Method Room Air 02/18/25 13:13 BMI result Body Mass Index 42.0 Const General: no acute distress and alert Nutritional Appearance: obese Orientation/consciousness: Other orientation findings ( oriented) HEENT Head: Yes atraumatic Eyes General: appearance normal, both eyes and all related structures Sclerae: sclerae normal EOM: EOMs intact bilaterally Neck Neck: Yes supple Lymphatic: no lymphadenopathy noted Resp Effort & Inspection: normal respiratory effort and no use of accessory muscles Auscultation: clear to auscultation bilaterally Cardio Rate: regular rate Rhythm: regular rhythm Heart sounds: no gallops, no murmurs and no rubs Skin General skin exam: other ( warm) Extrem General: No clubbing, No cyanosis and No edema Assessment & Plan Assessment & Plan (1) Asthma: Code(s): J45.909 - Unspecified asthma, uncomplicated Category: Medical Qualifiers: Asthma severity: mild Asthma persistence: persistent Asthma complication type: uncomplicated Qualified Code(s): J45.30 - Mild persistent asthma, uncomplicated Plan: Well controlled on current regimen of Advair and albuterol MDI/nebs. Continue current regimen. (2) Encounter for preoperative pulmonary examination: Code(s): Z01.811 - Encounter for preprocedural respiratory examination Category: Medical Plan: At this time patient is at low risk for pulmonary perioperative complications for the proposed shoulder arthroscopy under general anesthesia monitored anesthesia care. Secondary to underlying DORA, consider extubation to BiPAP. Coding Level of Care Code Est Pt Level 4 (55184) Complex EM visit Add On G2211 Diagnoses Mild persistent asthma without complication J45.30 Asthma severity: mild Asthma persistence: persistent Asthma complication type: uncomplicated Encounter for preoperative pulmonary examination Z01.811
--- OUTSIDE RECORDS SUMMARY | 2025-02-18 13:29 | XMS_ITS | Patient Health Record ---
Author Organization [facility] Address [address] [place] [address] Care Team Providers Care Mold Bunch Trimmer Name Role Phone Adrianna Sharp Primary Care Provider Bin Salinas Unavailable [phone] Reason For Referral No Information Problems Problem Type SNOMED Code ICD Code Onset Dates Problem Status W/U Status Risk Notes Problem Gallstones (809740467) Gallstones (K80.20) Active confirmed Plan Of Treatment No Information Insurance Providers Payer Name Payer Address Payer Phone Subscriber Number Group Number Insured Name Patient Relationship to Insured Coverage Start Date Coverage End Date MEDICARE OF [facility] [address] [place] [address] [id number] ISMAEL JUÁREZ Self - patient is the insured MEDICAID OF [facility] [address] [place] [address] [id number] ISMAEL JUÁREZ Self - patient is the insured MEDICARE OF [place] [address] [place] [address] [id number] ISMAEL JUÁREZ Self - patient is the insured [facility] [address] [place] [phone] [id number] ISMAEL JUÁREZ Self - patient is the insured 3 Medical (General) History Medical History History ICD Code colon and egd 11-30-2009 history of anemia gastric polyp pernicious anemia
--- OUTSIDE RECORDS SUMMARY | 2025-02-18 13:29 | XMS_ITS | Encounter Summary ---
Author Organization [facility] Address [address] [place] [address] Care Team Providers Care Field Nurse Name Role Phone Pcp, No Primary Care Provider Unavailabl e Adrianna Sharp MD Primary Care Provider Encounter Details Date Type Department Care Team (Late st Contact Info) Description 04/28/2023 Scanned Document [facility] Emergency Department [address] [place] [address] Provider, Generic Social History Tobacco Use Types [...] place to sleep or slept in a long term (including now)? No 04/29/2023 Comments Unknown Sex [...] documented as of this encounter Care Teams Field Nurse Relationship Specialty Start Date End Date Pcp, No [address] [place] [address] PCP - General 04/28/23 04/28/23 Adrianna Sharp MD [address] [facility] [address] [address] [place] [address] PCP - General Family Medicine 04/29/23 documented as of this encounter
--- OUTSIDE RECORDS SUMMARY | 2025-02-18 13:29 | XMS_ITS | Clinical Summary ---
Author Organization [facility] Address [address] [address] Phone Care Team Providers Care Evening Sitter Name Role Phone Adrianna Sharp MD Primary Care Provider [phone] Allergies Active Allergy Reactions Criticality Noted Date [...] Visit [facility] [address] [facility] [address] [place] [address] Dayanara Marcus ARNP [address] [phone] Health Maintenance Due Date Last Done Comments [...] topic Insurance MCR ([id number]) ([id number]) Care Teams Evening Sitter Relationship Specialty Start Date End Date Adrianna Sharp MD [address] [place] [address] [address] [facility] P[facility] - General Internal Medicine 06/25/23
--- OUTSIDE RECORDS SUMMARY | 2025-02-18 13:29 | XMS_ITS | Clinical Summary ---
Author Organization [facility] Address [address] [place] [address] Care Team Providers Care Product Architect Name Role Phone Adrianna Sharp MD Primary Care Provider [phone] Allergies Active Allergy Reactions Criticality Noted Date [...] slept in a fpc (including now)? No 05/25/2023 Comments No Sex [...] this topic Medical Devices Explanted Type Area Tile Finisher Device Identifier Shelf Expiration Date Model / Serial / Lot [id number] Stent Pancreatic 5fr 5cm Pigtail Curve Radopq Push Cath - [id number] Implanted:Qty: 1 on 04/29/2023 by Bryan Chester MD at [facility] Explanted:Qty: 1 on 05/06/2023 by Kristyn Paez MD at [facility] Stent N/A: Bile Duct [employer] [id number] 12/30/2025 [id number] / / [id number] Insurance [facility] [employer] [facility] Advance Directives * Full Code (Latest Code Status on File) Date Activated Date Inactivated Comments 05/24/2023 3:08 PM Question Answer Comments Decision Thoroughly Discussed with: Patient * Full Code Date Activated Date Inactivated Comments 04/28/2023 9:15 PM 05/24/2023 2:10 PM Care Teams Product Architect Relationship Specialty Start Date End Date Adrianna Sharp MD [address] [place] [address] PCP - General Family Medicine 04/29/23
--- OUTSIDE RECORDS SUMMARY | 2025-02-18 13:29 | XMS_ITS | Data Portability ---
Author Organization [facility] [place] Address [address] [place] [address] Care Team Providers Care Computer Engineering Technician Name Role Phone HIM CCA OTHER AMBROSE JAMES Primary Care Provider [phone] Assessment Encounter Date Assessment Date Assessment LastModified [...] to allow for adequate healing. Precautions reviewed. [email or web address] Not available 10/07/2024 21:49:22 01/08/2025 01/08/2025 Ms. [...] OTC medications advised and will continue to genetic counselor on safe use for tylenol and/or [...] Assessment and Plan as documented by the Rn Family. We discussed the diagnostic uncertainty of home [...] would benefit from in person evaluation in [facility] ED for consideration of imaging including [...] Ag, QL IA, respiratory specimen 2024 025 [facility], [address] [place] [address], [phone] 5 14:26:53 rapid flu (A+B) 2024 025 [facility], [address] [place] [address], [phone] 5 14:26:08 rapid strep group A, throat 2024 025 [facility], [address] [place] [address], [phone] 5 14:28:05 rapid flu (A+B) [address], [address] [place] [address], [phone] 5 12:22:27 rapid SARS CoV 2 Ag, QL IA, respiratory specimen [address], [address] [place] [address], [phone] 5 12:22:26 rapid flu (A+B) [address], [address] [place] [address], [phone] 5 14:16:35 rapid SARS CoV 2 Ag, QL IA, respiratory specimen [address] [place] [address], [address] [place] [address], [phone] 5 14:16:35 Referral None recorded. Procedures None recorded. Surgeries None recorded. Imaging None recorded. Medication Orders oseltamivir 75 mg capsule 2024 025 [facility], [address] [facility], [place], [address], 5 12:22:25 Tamiflu 75 mg capsule 2024 025 [facility], [address] [place], [address], 5 12:22:25 ipratropium 0.5 mg-albutero l 3 mg (2.5 mg base)/3 mL nebulizatio n soln 2024 025 [facility], [address] [place], [address], 5 14:16:35 prednisone 10 mg tablet 2024 025 [facility] #0373, [address] [place], [address], 5 14:18:56 prednisone 20 mg tablet 2024 025 [facility], [address] [place], [address], 5 14:18:54 clotrimazol e 1 % topical cream 2023 024 [facility] #0373, [address] [place], [address], 4 20:06:27 Patient TargetsNo targets recorded. Patient InstructionsNo instructions recorded. Reason for Referral None Reported. Results Created Date Observation Date Name Description Value Unit Range Abnormal Flag Note LastModifiedBy Organization Detail LastModifiedTime 01/09/2001/08/2025 rapid SARS CoV 2 Ag, QL IA, respi rator y speci men rapid SARS CoV 2 Ag, QL IA, respiratory specimen negati ve Not Available [facility] [address] [place] [address], [phone] 01/08/2025 11:33:21 01/09/20 25 01/08/2025 rapid flu (A+B) Flu positi ve Not Available [facility] [address] [place] [address], [phone] 01/08/2025 11:33:21 Result Notes None recorded. Medical Equipment None Reported. Allergies Allergen ID Allergen Name Allergen Category Reaction Reaction Severity Criticality Documentation Date Start Date Code Code System Note Provider Name and Address Organization Details Recorded Time 43430 oxycodone medicatio n Not available Not available Not available 10/07/2024 7804 RxNorm Not Available [facility] 4 16:21:18 51195 latex environme nt,medica tion Not available Not available Not available 10/07/2024 73656 91 RxNorm Not Available [facility] - production [...] /min 140 mm[Hg] 82 mm[Hg] Not Available [employer] 4 20:04:20 Date Recorded Body weight Respiratory rate Heart rate Body height Oxygen saturation Oxygen saturation in Arterial blood by Pulse oximetry Body temperature Systolic blood pressure Diastolic blood pressure Provider Name and Address Organization Details Last Updated DateTime 5 92712.3 2 g 18 /min 68 /min 147.32 cm 96 % 96 % 98 [degF] 140 mm[Hg] 85 mm[Hg] Not Available [employer] [facility] [employer] 5 14:10:41 Date Recorded Oxygen saturation Oxygen saturation in Arterial blood by Pulse oximetry Respiratory rate Body temperature Body weight Body height Heart rate Systolic blood pressure Diastolic blood pressure Provider Name and Address Organization Details Last Updated DateTime 5 90 % 90 % 20 /min 103.5 [degF] 93428.1 36 g 149.86 cm 100 /min 119 mm[Hg] 75 mm[Hg] Not Available [facility] 5 11:37:03 Date Recorded Body temperature Heart rate Oxygen saturation Oxygen saturation in Arterial blood by Pulse oximetry Body weight Body height Respiratory rate Systolic blood pressure Diastolic blood pressure Provider Name and Address Organization Details Last Updated DateTime 5 98.8 [degF] 72 /min 95 % 95 % 98260.1 36 g 149.86 cm 18 /min 143 [...] SNOMED-CT Code Diagnosis ICD10 Code Diagnosis Note 14986 MAU FLYNN MD [facility] [address] [place] [phone] 10/07/2024 20:04:14 10/07/2024 23:05:27 Tinea corporis 70274483 B35.4 54158 Sanam Russell MD [facility] - [facility] [address] [place] [phone] 11/02/2024 14:06:32 11/02/2024 22:25:51 Upper respiratory infection 90916943 J06.9 Evaluation in the field was performed by my ediphone operator colleague, as noted above, I provided real-time direction and supervisio n for this visit. 68yo F PMHx asthma p/w 2 weeks URI symptoms including cough, rhinorrhea , and increased wheezing without fevers, chest pain. Improved with inhalers. Reports she usually receives antibiotic s every year for this. Denies hx tobacco use. On ediphone operator eval VS sat 96% RA normal RR. [...] shortness of breath, cough, chest pain, fever. 36542 SANDY MCPHERSON MD [facility] [address] [place] [phone] 01/08/2025 11:31:19 01/10/2025 13:55:12 Viral syndrome 696857502 B34.9 63303 Elio Oconnell MD [facility] [address] [place] [phone] 02/16/2025 10:50:19 02/16/2025 13:17:44 Neck pain 91585389 M54.2 Health Concerns Section Related Observation LastModified by Organization Detai ls LastModified Time None Recorded Concern Status LastModified by Organization Details LastModified Time None Recorded Advance Directives Directive None Recorded Payers Encounter Date Sequence Insurance Name Policy Number Policy Taylor Covered Member ID Taylor Member ID Guarantor Name 10/07/2024 1 [facility] - DOS ON OR AFTER 2023 - DUAL ELIGIBLE - RETIREMENT OPTIONS AND ONE CARE (MEDICARE REPLACEMENT/ADV ANTAGE - HMO) Marita Murray [id number] Marita Howelltiz 11/02/2024 1 [facility] - DOS ON OR AFTER 2023 - DUAL ELIGIBLE - RETIREMENT OPTIONS AND ONE CARE (MEDICARE REPLACEMENT/ADV ANTAGE - HMO) Marita Murray [id number] Marita Mendiola Murray 01/08/2025 1 [facility] - DOS ON OR AFTER 2023 - DUAL ELIGIBLE - RETIREMENT OPTIONS AND ONE CARE (MEDICARE REPLACEMENT/ADV ANTAGE - HMO) Marita Murray [id number] Marita Mendiola Murray 02/16/2025 1 [facility] - DOS ON OR AFTER 2023 - DUAL ELIGIBLE - RETIREMENT OPTIONS AND ONE CARE (MEDICARE REPLACEMENT/ADV ANTAGE - HMO) Marita Murray [id number] Marita Murray Notes Date Note Type Note [...] .................... .................... .................... .................... .................... .................... . Rn Family Note From Zaki Vega: Dispatched to the [...] .................... .................... .................... .................... .................... . [facility] Consulted: Mau Flynn .................... .................... .................... .................... .................... .................... .................... . Disposition: Fulfilled MAU FLYNN MD [address] [place] [address],[address], [place], [address], [employer] 10/07/2024 21:49:34 11/02/2024 text/html [facility] Nurse Triage Notes (Erika Noel - RN): [...] s/s and seek emergency treatment if needed. Rn Family Organization Information for Yamile Cary NAINA Business Legal Name: [facility]? Address: [address] [place] [address], Appliance Counselor: Constantin Machado MD NAVEEN No.: [id number] Rn Family POC Test Results from Yamile Cary [employer] Rapid influenza antigen (14:11:38) Flu: - Rapid COVID antigen (14:11:39) COVID: - .................... .................... .................... .................... .................... .................... .................... . Rn Family Note From Yamile Cary: Sent to a [...] neb administered; Lung sounds: clear bialterally; [facility] consulted and orders Prednisone 40mg PO. [facility] sends script to pt's pharmacy. Prednisone 40mg PO administered. Pt advised to use symptomatic treatment as outlined. Red flags discussed. Pt has no further questions. .................... .................... .................... .................... .................... .................... .................... . [facility] Consulted: Sanam Russell .................... .................... .................... .................... .................... .................... .................... . Disposition: Fulfilled Sanam Russell MD [address] [facility],[address], [place], [address], [facility] BRITTANY PEREZ 11/02/2024 16:46:28 01/08/2025 text/html [...] emergency treatment if needed. Ronan Fernandez RN Rn Family Organization Information for Pancho Mendez Business Legal Name: [facility]? Address: [address] [place] [address], Appliance Counselor: Constantin Machado MD CLIA No.: [id number] Rn Family POC Test Results from [employer] Rapid COVID antigen (11:44:34) COVID: - Rapid influenza antigen (11:44:38) Flu: +A Attachments uploaded as part of this test result can be found under Documents section. iSTAT Chem8+ (12:03:59) Na: 139 mEq/L K: 4.2 mEq/L Cl: 103 mEq/L iCa: 1.24 mmol/L TCO2: 28 mmol/L Glu: 118 mg/dL BUN: 11 mg/dL Crea: 0.9 mg/dL Hct: 38 % Hb: 12.9 g/dL A mmol/L Cartridge Number: [id number] Attachments uploaded as part of this test result can be found under Documents section. .................... .................... .................... .................... .................... .................... .................... . Rn Family Note From Pancho Mendez: JESSICA makes pt contact. She is lying R lateral on the sofa in the living room of a small and cluttered home. She is conscious and alert and watching [facility] on approach. 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 [facility] obtains vital signs and pt is swabbed for COVID/flu and physically assessed. Lung sounds are rhonchi in the larger airways, but good air movement in the bases. Pt's skin is warm to touch and dry, and she is found to be febrile w/ low SpO2 at 90% RA. SpO2 improves to 93% when she sits up. Pt tests positive for Flu A. [facility] contacts [facility] and discusses the above. [facility] requests [facility] for tamiflu dosing. IV access is attempted [...] and results are uploaded to the platform. [facility] recontacts [facility] and [facility] orders 75mg Tamiflu PO. [facility] administers one 75mg capsule Tamiflu to pt and instructs her to seek ED care if she cannot get her fever down and keep it down, she develops uncontrollable n/v/d, continues to feel sob w/ cp, or feels like she is going to or does pass out. [facility] also instructs pt to continue taking 1G Tylenol every 8 hours for fever and using her albuterol nebulizer every 4 hours as needed. Pt gives her verbal understanding. [facility] is clear. Report completed by ANTONIO Mendez [id number]. [facility] Lab Orders: rapid flu (A+B): Performed rapid SARS CoV 2 Ag, QL IA, respiratory specimen: Performed [facility] Medication Orders: oseltamivir 75 mg capsule: Administered .................... .................... .................... .................... .................... .................... .................... . [facility] Consulted: Sandy Mcpherson .................... .................... .................... .................... .................... .................... .................... . Disposition: Fulfilled SANDY MCPHERSON MD [address] [facility],[address], [place], [address], [employer] 01/08/2025 14:28:06 02/16/2025 text/html [facility] Nurse Triage [...] signs of when to seek emergency care. Rn Family Organization Information for Ymaile Cary Business Legal Name: [employer] Address: [address] [place] [address], Appliance Counselor: Constantin Machado MD CLIA No.: [id number] Rn Family POC Test Results from Yamile Cary Rapid COVID antigen (10:48:16) COVID: - Rapid influenza antigen (10:48:17) Flu: - Rapid strep test (10:48:18) Strep: - .................... .................... .................... .................... .................... .................... .................... . Rn Family Note From Yamile Cary: Sent to a [...] .................... .................... .................... .................... .................... . [facility] Consulted: Elio Oconnell .................... .................... .................... .................... .................... .................... .................... . Disposition: Fulfilled Elio Oconnell MD [address] [place] [address],[address], [place], [address], [employer] 02/16/2025 12:29:21 OBGyn Episode No OBEpisode recorded.
--- OUTSIDE RECORDS SUMMARY | 2025-02-18 13:29 | XMS_ITS | Continuity of Care Document ---
Author Organization [employer] [place] [facility] Address [address] [place] [address] Care Team Providers Care String Cutter Name Role Phone HIM CCA OTHER AMBROSE [...] would benefit from [facility] person evaluation [facility] for consideration of imaging including CT [...] Primary care, consider neck imaging Disposition: KATEY [email or web address] Not available 02/16/2025 12:28:51 Plan of Treatment Reminders Order Date Submit Date Provider Last Modified By Organization Details Last Modified Time Details Appointments None recorded. Lab rapid SARS CoV 2 Ag, QL IA, respiratory specimen [address], [address] 5 14:26:53 rapid flu (A+B) [address], [address] 5 14:26:08 rapid strep group A, throat [address], [address] [place] [address] 14:28:05 Referral None recorded. Procedures None recorded. [...] Name and Address Organization Details Recorded Time 83510 oxycodone medicatio n Not available Not available Not available 10/07/2024 7804 RxNorm Not Available [facility] - production 4 16:21:18 61816 latex environme nt,medica tion Not available Not available Not available 10/07/2024 24876 91 RxNorm Not Available [facility] - production [...] [degF] 72 /min 95 % 95 % 99837.1 36 g 149.86 cm 18 /min 143 [...] SNOMED-CT Code Diagnosis ICD10 Code Diagnosis Note 68084 Elio Oconnell MD [facility] [address] [place] [phone] 02/16/2025 10:50:19 02/16/2025 13:17:44 Neck pain 88840379 M54.2 Health Concerns Section Related Observation LastModified by Organization Detai ls LastModified Time None Recorded Concern Status LastModified by Organization Details LastModified Time None Recorded Payers Encounter Date Sequence Insurance Name Policy Number Policy Taylor Covered Member ID Taylor Member ID Guarantor Name 02/16/2025 1 [facility] - DOS ON OR AFTER 2023 - DUAL ELIGIBLE - JAIL OPTIONS AND ONE CARE (MEDICARE REPLACEMENT/ADV ANTAGE - HMO) Marita Murray [id number] Marita Murray Notes Date Note Type Note [...] signs of when to seek emergency care. Industrial Economics Teacher Organization Information for Yamile Cary Business Legal Name: [employer]? Address: [address] [place] [address], Social Secretary: Constantin RHOADES No.: [id number] Industrial Economics Teacher POC Test Results from Yamile Cary Rapid COVID antigen (10:48:16) COVID: - Rapid influenza antigen (10:48:17) Flu: - Rapid strep test (10:48:18) Strep: - .................... .................... .................... .................... .................... .................... .................... . Industrial Economics Teacher Note From Yamile Cary: Sent to a [...] .................... .................... .................... .................... .................... .................... . [facility] [place] [place] Consulted: Elio Oconnell .................... .................... .................... .................... .................... .................... .................... . Disposition: Fulfilled Elio Oconnell MD [address] [place] [address],[address] [facility], [place], [address], [employer] - [employer]ITTANY JACKSON 02/16/2025 12:29:21 OBGyn Episode No OBEpisode recorded.
== END 2025-02-18 13:30 | disposition home or self-care (01) ==
PROVIDERS: PCP Internal Medicine; Visit Provider Internal Medicine Pulmonary Disease
DX: J45.30 Mild persistent asthma, uncomplicated (principal); Z01.811 Encounter for preprocedural respiratory examination
CPT/HCPCS: 99214; G2211

== ENCOUNTER → 2025-02-18 13:09 | Outpatient (BNVA) | payer OTHER, SELFPAY | PROVIDERS: PCP Internal Medicine; Visit Provider Internal Medicine Pulmonary Disease | DX: Z01.811 Encounter for preprocedural respiratory examination (principal); J45.30 Mild persistent asthma, uncomplicated; G47.33 Obstructive sleep apnea (adult) (pediatric); Z99.89 Dependence on other enabling machines and devices | CPT/HCPCS: 99212 ==

== ENCOUNTER 2025-02-23 13:24 | Outpatient (AMB) | payer OTHER, SELFPAY ==
--- NOTE | 2025-02-23 13:27 | A.OFFPC_ITS ---
Vital Signs 02/23/25 13:30 Height 4 ft 11 in Weight 212 lb BMI 42.8 BP 128/76 Blood Pressure Location Rt brachial Position Sitting Intake Visit Reasons: CT request Supervising Appraiser Required: No Accompanied by: Self / Same As Patient Allergies latex [LATEX] Allergy (Intermediate, Verified 02/23/25 13:49) RASH oxycodone Adverse Reaction (Severe, Verified 02/23/25 13:49) Itching Medication List - Last Reconciled 02/23/25 by Adrianna Richter MD Advair HFA 230-21 mcg/actuation (fluticasone propion-salmeterol) 2 puffs inhalation Q12H NS albuterol sulfate 90 mcg/actuation (Proair Digihaler) 2 inhalations inhalation Q4H PRN albuterol sulfate 2.5 mg (3 mL) inhalation Q6H PRN 30 days atorvastatin 20 mg PO DAILY 90 days buspirone 10 mg PO TID 30 days cholecalciferol (vitamin D3) 50 mcg PO DAILY 90 days commode As directed CPAP (CPAP Machine/Device) autoPAP 6-16 cmH2O cyanocobalamin (vitamin B-12) (Vitamin B-12) 1,000 mcg PO DAILY escitalopram oxalate 20 mg PO BEDTIME 90 days furosemide 40 mg PO DAILY hydromorphone (Dilaudid) 4 mg PO Q4H PRN levothyroxine 50 mcg PO DAILY 90 days lorazepam 0.5 mg PO DAILY PRN metoprolol succinate ER 25 mg PO DAILY 90 days miscellaneous medical supply [facility] toilet safety frame nebulizers (AeroEclipse II Nebulizer) As directed nystatin 1 appl topical BID PRN 2 weeks ondansetron 8 mg PO Q8H PRN 7 days oxycodone-acetaminophen 7.5-325 mg 1 tab PO Q8H PRN 30 days [showerhead As directed] walker (Ultra-Light Rollator misc) As directed zinc acetate (Galzin) 50 mg PO DAILY Tobacco use date assessed: 01/21/25 Dental Screening Dental Screen Date: 01/21/25 HPI HPI Comments History of Present Illness Details The patient is a 69-year-old female presenting with concern regarding potential thyroid nodule and thyroid-related discomfort. She has noted specific tender sensations localized to one side of the thyroid region, which she associates with the use of thyroid medication. The discomfort does not appear to have changed dramatically or rapidly. She has previous diagnoses including uncontrolled hypothyroidism, and a significant history of depression and anxiety, managed with current medications. Six weeks prior, she experienced pneumonia. She is compliant with CPAP therapy for sleep apnea. Her allergies to latex and adverse reaction to oxycodone influence consideration for materials and medication use. Has pure hypercholesterolemia and is morbidly obese and was advised to do diet and exercise. [facility] Medical History (Updated 02/23/25 @ 13:59 by Adrianna Richter MD) Influenza A Bacterial pneumonia Vitamin D deficiency Zinc deficiency Family history of lupus anticoagulant disorder Right shoulder pain Severe major 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 psychotic features DORA on CPAP Acute hypoxemic respiratory failure Right lower lobe pneumonia CKD (chronic kidney disease) stage 3, GFR 30-59 ml/min Acute pancreatitis Anemia Morbid obesity Elevated TSH Murmur Moderate persistent asthma B12 deficiency Hair loss Dyslipidemia Lumbar degenerative disc disease History of vitamin D deficiency Arthritis History of left bundle branch block (LBBB) Breast cancer Mild aortic stenosis Tinnitus Chronic pain HTN (hypertension) Surgical History Hx of hand surgery History of cholecystectomy History of cardiac cath Hx of bilateral cataract extraction History of total right knee replacement (TKR) History of total left knee replacement (TKR) History of dilation and curettage Hx of colonoscopy Hx of esophagogastroduodenoscopy History of lymph node dissection of left axilla S/P lumpectomy, left breast Family History Father Prostate cancer Hypertension Mother Skin cancer Dementia Diabetes Daughter Lupus Maternal Grandmother Diabetes Hypertension Maternal Grandfather No problems noted. Paternal Grandmother No problems noted. Paternal Grandfather Cancer Brother Prostate cancer Social History Household Members: Spouse and Family Household Members Other:: Graddaughter Housing: House Do you presently have visiting nurse or other home services: Yes Alcohol intake: never Patient Tobacco Use Status: Never used Tobacco e-Cigarette/Vaping Use: Never Used Second Hand Smoke Exposure: No Substance Use Type: Marijuana Advance Directives Date on File: 08/05/22 service: No Current occupational status: disabled Cognitive needs: Yes (Cane) Hearing needs: No Vision needs: Yes (Glasses) Questionnaire Thrive Questionnaire Date Thrive assessed: 01/21/25 RYANNE-7 AMB Questionnaire RYANNE-7 Date RYANNE - 7 assessed: 01/21/25 Source: Developed by Drs. Bin Islas, Stephanie Lowery, Markie Escobedo and colleagues, with an educational lo from [employer]. Review of Systems Const All systems reviewed & are unremarkable except as noted in HPI and below Card Denies chest pain at rest, Denies chest pain with activity, Denies edema, Denies irregular heart rhythm, Denies claudication, Denies dyspnea, Denies dyspnea on exertion, Denies orthopnea, Denies paroxysmal nocturnal dyspnea and Denies slow heart rate Resp Denies cough, Denies dyspnea and Denies dyspnea on exertion GI Denies abdominal pain, Denies change in bowel habits, Denies excessive flatus, Denies nausea and Denies vomiting Skin/Breast Denies bleeding lesions, Denies changing lesions and Denies rash Neuro Denies lack of coordination Physical exam (Primary Care) Vital Signs: Last Vital Signs BP 128/76 02/23/25 13:30 BMI result Body Mass Index 42.8 BMI Assessment/Plan discussion: High BMI High, discussed plan: lifestyle, weight reduction, dietary and physical activity Tobacco/Smoking Status: Tobacco use Status Tobacco use date assessed 01/21/25 02/23/25 13:28 Patient Tobacco Use Status Never used Tobacco 02/23/25 13:28 e-Cigarette/Vaping Use Never Used 02/23/25 13:28 Thrive Assessment: Date of Thrive Assessment Date Thrive assessed 01/21/25 02/23/25 13:28 Neck Thyroid: multiple palpable nodules Resp Effort & Inspection: normal respiratory effort Auscultation: clear to auscultation bilaterally Cardio Jugular venous distension: no JVD Rate: regular rate Rhythm: regular rhythm Heart sounds: S1 normal heart sound present and S2 normal heart sound present Extrem General: Yes full ROM Coding Level of Care Code Est Pt Level 4 (96553) Complex EM visit Add On G2211 Diagnoses Thyroid nodule E04.1 Hypothyroidism E03.9 Pure hypercholesterolemia E78.00 Anxiety F41.9 Mild major depression F32.0 Morbid obesity E66.01 DORA on CPAP G47.33 Time Spent (min) 23 Assessment & Plan Assessment & Plan (1) Thyroid nodule: Code(s): E04.1 - Nontoxic single thyroid nodule Category: Medical (2) Hypothyroidism: Code(s): E03.9 - Hypothyroidism, unspecified Category: Medical (3) Pure hypercholesterolemia: Code(s): E78.00 - Pure hypercholesterolemia, unspecified Category: Medical (4) Anxiety: Code(s): F41.9 - Anxiety disorder, unspecified Category: Medical (5) Mild major depression: Code(s): F32.0 - Major depressive disorder, single episode, mild Category: Medical (6) Morbid obesity: Code(s): E66.01 - Morbid (severe) obesity due to excess calories Category: Medical (7) DORA on CPAP: Code(s): G47.33 - Obstructive sleep apnea (adult) (pediatric) Category: Medical Plan I have recommended a thyroid ultrasound to explore the reported tenderness zeenat und the thyroid gland for possible enlargement or nodules. The continuity of care includes management of the patient's CPAP for sleep apnea and monitoring her condition related to recent pneumonia. Her history of uncontrolled hypothyroidism warrants close follow-up for possible medication adjustment after further evaluation. The patient's allergies and reactions influence medication selection and treatment plans. Patient was informed and verbally consented to the use of an ambient scribe for clinic note documentation during this visit. I discussed with the patient the need for a thyroid ultrasound to assess potential nodules or gland enlargement and advised that this initial step would clarify the cause of discomfort. The risks and benefits of conducting an ultrasound versus other methods, such as CT, were outlined, emphasizing the low- risk nature of ultrasound. We reviewed her current medication regimen for depression, anxiety, and hypothyroidism, understanding that these conditions will need continued vigilance and potential adjustment depending on the ultrasound findings. I confirmed adherence to CPAP therapy for sleep apnea and that addressing lung health remains crucial after recent pneumonia. Allergy precautions were discussed in terms of latex and oxycodone to avoid reactions. Orders: Orders US thyroid Today E04.1 - Nontoxic single thyroid nodule Patient Instructions: - Schedule a thyroid ultrasound to evaluate tenderness. - Continue regular use of CPAP for sleep apnea. - Monitor for any changes in symptoms and report necessary changes. - Avoid latex and oxycodone due to allergies. - Follow up with any new or worsening symptoms related to thyroid or breathing.
[2025-02-23 13:30] VITALS: BP 128/76; BMI 42.8
--- OUTSIDE RECORDS SUMMARY | 2025-02-23 14:41 | XMS_ITS | Clinical Summary ---
Author Organization [facility] Address [address] [address] Phone Care Team Providers Care Cigar Head Perforator Name Role Phone Adrianna Sharp MD Primary Care Provider [phone] Allergies Active Allergy Reactions Criticality Noted Date [...] Visit [facility] [address] [facility] [address] [place] [address] Dayanara Marcus ARNP [address] [id number] Health Maintenance Due Date Last Done Comments [...] topic Insurance MCR ([id number]) ([id number]) Care Teams Cigar Head Perforator Relationship Specialty Start Date End Date Adrianna Sharp MD [address] [place] [address] [address] [facility] P[facility] - General Internal Medicine 06/25/23
--- OUTSIDE RECORDS SUMMARY | 2025-02-23 14:42 | XMS_ITS | Clinical Summary ---
Author Organization [facility] Address [address] [place] [id number] Care Team Providers Care Oil Well Service Operator Helper Name Role Phone Adrianna Sharp MD Primary Care Provider [phone] Allergies Active Allergy Reactions Criticality Noted Date [...] place to sleep or slept in a residential (including now)? No 05/25/2023 Comments No Sex [...] Density (Females,Ag es 65 and older) 2018 COVID-19 Vaccine ( - 2023-2 5 season) 2024 Influenza Vaccine 05/20/2025 Hepatitis B Vaccines Aged Out No long er eligible based on patient's age to complete this topic Medical Devices Explanted Type Area Cost Clerk Device Identifier Shelf Expiration Date Model / Serial / Lot [id number] Stent Pancreatic 5fr 5cm Pigtail Curve Radopq Push Cath - [id number] Implanted:Qty: 1 on 04/29/2023 by Bryan Chester MD at [facility] Explanted:Qty: 1 on 05/06/2023 by Kristyn Paez MD at [facility] Stent N/A: Bile Duct [employer] [id number] 12/30/2025 [id number] / / [id number] Insurance [employer] Advance Directives * Full Code (Latest Code Status on File) Date Activated Date Inactivated Comments 05/24/2023 3:08 PM Question Answer Comments Decision Thoroughly Discussed with: Patient * Full Code Date Activated Date Inactivated Comments 04/28/2023 9:15 PM 05/24/2023 2:10 PM Care Teams Oil Well Service Operator Helper Relationship Specialty Start Date End Date Adrianna Sharp MD [address] [place] [address] PCP - General Family Medicine 04/29/23
--- OUTSIDE RECORDS SUMMARY | 2025-02-23 14:42 | XMS_ITS | Data Portability ---
Author Organization [employer] [employer] Address [address] [place] [address] Care Team Providers Care Lav Crewman Name Role Phone HIM CCA OTHER AMBROSE [...] to allow for adequate healing. Precautions reviewed. [email or web address] Not available 10/07/2024 21:49:22 01/08/2025 01/08/2025 Ms. [...] OTC medications advised and will continue to credit counselor on safe use for tylenol and/or [...] Assessment and Plan as documented by the Architectural Design Professor. We discussed the diagnostic uncertainty of home [...] would benefit from in person evaluation in [facility] ED for consideration of imaging including CT [...] Primary care, consider neck imaging Disposition: KATEY [email or web address] Not available 02/16/2025 12:28:51 Plan of Treatment Reminders Order Date Submit Date Provider Last Modified By Organization Details Last Modified Time Details Appointments None recorded. Lab rapid SARS CoV 2 Ag, QL IA, respiratory specimen 2024 025 [facility], [address] [place] [address], [id number] 5 14:26:53 rapid flu (A+B) 2024 025 [facility], [address] [place] [address], [id number] 5 14:26:08 rapid strep group A, throat 2024 025 [facility], [address] [place] [address], [id number] 5 14:28:05 rapid flu (A+B) [address], [address] [place] [address], [id number] 5 12:22:27 rapid SARS CoV 2 Ag, QL IA, respiratory specimen [address], [address] [place] [address], [id number] 5 12:22:26 rapid flu (A+B) [address], [address] [place] [address], [id number] 5 14:16:35 rapid SARS CoV 2 Ag, QL IA, respiratory specimen [address] [place] [address], [address] [place] [address], [id number] 5 14:16:35 Referral None recorded. Procedures None recorded. Surgeries None recorded. Imaging None recorded. Medication Orders oseltamivir 75 mg capsule 2024 025 [id number], [address] [facility], , [address], 5 12:22:25 Tamiflu 75 mg capsule 2024 025 [facility], [address] [place], [address], 5 12:22:25 ipratropium 0.5 mg-albutero l 3 mg (2.5 mg base)/3 mL nebulizatio n soln [address] [facility]/Pharmacy #0373, [address] [place], [address], 5 14:16:35 prednisone [address] tablet [address] [facility] [place]Pharmacy #0373, [address] [place], [address], 5 14:18:56 prednisone 20 mg tablet 2024 025 [facility]/Pharmacy #0373, [address] [place], [address], 5 14:18:54 clotrimazol e 1 % topical cream [address] [facility] [place]Pharmacy #[id number], [address] [place], [address], 4 20:06:27 Patient TargetsNo targets recorded. Patient InstructionsNo instructions recorded. Reason for Referral None Reported. Results Created Date Observation Date Name Description Value Unit Range Abnormal Flag Note LastModifiedBy Organization Detail LastModifiedTime 01/09/2001/08/2025 rapid SARS CoV 2 Ag, QL IA, respi rator y speci men rapid SARS CoV 2 Ag, QL IA, respiratory specimen negati ve Not Available [facility] [address] [place] [address], [id number] 01/08/2025 11:33:21 01/09/20 25 01/08/2025 rapid flu (A+B) Flu positi ve Not Available [facility] [address] [place] [address], [id number] 01/08/2025 11:33:21 Result Notes None recorded. Medical Equipment None Reported. Allergies Allergen ID Allergen Name Allergen Category Reaction Reaction Severity Criticality Documentation Date Start Date Code Code System Note Provider Name and Address Organization Details Recorded Time 15463 oxycodone medicatio n Not available Not available Not available 10/07/2024 7804 RxNorm Not Available [facility] - production 4 16:21:18 07106 latex environme nt,medica tion Not available Not available Not available 10/07/2024 11902 91 RxNorm Not Available [facility] - production [...] /min 140 mm[Hg] 82 mm[Hg] Not Available [employer] 4 20:04:20 Date Recorded Body weight Respiratory rate Heart rate Body height Oxygen saturation Oxygen saturation in Arterial blood by Pulse oximetry Body temperature Systolic blood pressure Diastolic blood pressure Provider Name and Address Organization Details Last Updated DateTime 5 85601.3 2 g 18 /min 68 /min 147.32 cm 96 % 96 % 98 [degF] 140 mm[Hg] 85 mm[Hg] Not Available [facility] 5 14:10:41 Date Recorded Oxygen saturation Oxygen saturation in Arterial blood by Pulse oximetry Respiratory rate Body temperature Body weight Body height Heart rate Systolic blood pressure Diastolic blood pressure Provider Name and Address Organization Details Last Updated DateTime 5 90 % 90 % 20 /min 103.5 [degF] 56875.1 36 g 149.86 cm 100 /min 119 mm[Hg] 75 mm[Hg] Not Available [facility] production 5 11:37:03 Date Recorded Body temperature Heart rate Oxygen saturation Oxygen saturation in Arterial blood by Pulse oximetry Body weight Body height Respiratory rate Systolic blood pressure Diastolic blood pressure Provider Name and Address Organization Details Last Updated DateTime 5 98.8 [degF] 72 /min 95 % 95 % 43824.1 36 g 149.86 cm 18 /min 143 [...] SNOMED-CT Code Diagnosis ICD10 Code Diagnosis Note [id number] MAU FLYNN MD [facility] [address] [place] [address] 10/07/2024 20:04:14 10/07/2024 23:05:27 Tinea corporis 30379871 B35.4 86724 Sanam Russell MD [facility] [address] [place] [phone] 11/02/2024 14:06:32 11/02/2024 22:25:51 Upper respiratory infection 92576460 J06.9 Evaluation in the field was performed by my as400 consultant colleague, as noted above, I provided real-time direction and supervisio n for this visit. 68yo F PMHx asthma p/w 2 weeks URI symptoms including cough, rhinorrhea , and increased wheezing without fevers, chest pain. Improved with inhalers. Reports she usually receives antibiotic s every year for this. Denies hx tobacco use. On as400 consultant eval VS sat 96% RA normal RR. [...] shortness of breath, cough, chest pain, fever. 00694 SANDY MCPHERSON MD [facility] [address] [place] [phone] 01/08/2025 11:31:19 01/10/2025 13:55:12 Viral syndrome 132000895 B34.9 82531 Elio Oconnell MD [facility] [address] [place] [phone] 02/16/2025 10:50:19 02/16/2025 13:17:44 Neck pain 92633655 M54.2 Health Concerns Section Related Observation LastModified by Organization Detai ls LastModified Time None Recorded Concern Status LastModified by Organization Details LastModified Time None Recorded Advance Directives Directive None Recorded Payers Insurance Date Sequence Insurance Name Policy Number Policy Taylor Covered Member ID Taylor Member ID Guarantor Name 02/16/2025 1 [facility] - DOS ON OR AFTER 2023 - DUAL ELIGIBLE - LONG TERM OPTIONS AND ONE CARE (MEDICARE REPLACEMENT/ADV ANTAGE - HMO) Marita Murray [id number] Marita Murray Notes Date Note Type Note [...] .................... .................... .................... .................... .................... .................... . Architectural Design Professor Note From Zaki Vega: Dispatched to the [...] and moist, +CMSx4, -swelling/edema. lungs CTA, afebrile. [facility] consulted. Script called into preferred pharmacy. Red flags discussed. ALL times are approx. .................... .................... .................... .................... .................... .................... .................... . [facility] Consulted: Mau Flynn .................... .................... .................... .................... .................... .................... .................... . Disposition: Fulfilled MAU FLYNN MD [address] [place] [address],[address], [place], [phone], [employer] 10/07/2024 21:49:34 11/02/2024 text/html CRC Nurse Triage Notes (Erika Noel - RN): Reason For Request: Patient feels weak, and general illness cold like symptoms, congestion in chest, Coughing problems. Chief Complaints: Cough, Weakness PMH: Asthma, Arrhythmias (e.g., Atrial Fibrillation), Cancer, Sleep Apnea PMH Reviewed at 11/02/2024:10 Allergies Reviewed at 11/02/2024 - 12:10 Comments: [...] s/s and seek emergency treatment if needed. Architectural Design Professor Organization Information for Luis Daniel [facility] [employer] Business Legal Name: [employer] Address: [address] [place] [address], Print Binding Worker: Constantin Machado MD CLIA No.: [id number] Architectural Design Professor POC Test Results from Luis Daniel [facility] Rapid influenza antigen (14:11:38) Flu: - Rapid COVID antigen (14:11:39) COVID: - .................... .................... .................... .................... .................... .................... .................... . Architectural Design Professor Note From Yamile Cary: Sent to a [...] Duo neb administered; Lung sounds: clear bialterally; [facility] consulted and orders Prednisone 40mg PO. [facility] sends script to pt's pharmacy. Prednisone 40mg PO administered. Pt advised to use symptomatic treatment as outlined. Red flags discussed. Pt has no further questions. .................... .................... .................... .................... .................... .................... .................... . [facility] Consulted: Sanam Russell .................... .................... .................... .................... .................... .................... .................... . Disposition: Fulfilled Sanam Russell MD [address] [place] [address],[address], [place], [address], [facility] 11/02/2024 16:46:28 01/08/2025 text/html CRC Nurse Triage [...] Fibrillation), Cancer, Sleep ApneaPMH Reviewed at 01/08/2025 - 10:57Allergies Reviewed at 01/08/2025 - 10:57Comments: Member called in complaining of congestion, shortness of breath, cough, and a sore throat. Had fever up to 102 last night. No known sick exposures. Using inhaler as needed. Very productive cough. Denies chest pain. Has been taking Robitussin with little effect. Symptoms have been on going for 3 days now. MICHELLE RN verified identity via name/. Confirmed phone number. Education provided on expected response time and the member was advised to monitor reported signs/symptoms. Member in agreement to seek emergency treatment if needed. Ronan Fernandez RN Architectural Design Professor Organization Information for [employer]anch[employer] Legal Name: [employer]? Address: [address] [place] [address], Print Binding Worker: Constantin Machado MD CLIA No.: [id number] Architectural Design Professor POC Test Results from Pancho Mendez Rapid [...] Hb: 12.9 g/dL A mmol/L Cartridge Number: [id number] Attachments uploaded as part of this test result can be found under Documents section. .................... .................... .................... .................... .................... .................... .................... . Architectural Design Professor Note From Pancho Mendez: MIH makes pt contact. She is lying R lateral on the sofa in the living room of a small and cluttered home. She is conscious and alert and watching [facility] on approach. 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 [facility] obtains vital signs and pt is swabbed for COVID/flu and physically assessed. Lung sounds are rhonchi in the larger airways, but good air movement in the bases. Pt's skin is warm to touch and dry, and she is found to be febrile w/ low SpO2 at 90% RA. SpO2 improves to 93% when she sits up. Pt tests positive for Flu A. [facility] contacts [facility] and discusses the above. [facility] requests bmp for tamiflu dosing. IV access [...] and results are uploaded to the platform. [facility] recontacts [facility] and [facility] orders 75mg Tamiflu PO. [facility] administers one 75mg capsule Tamiflu to pt and instructs her to seek ED care if she cannot get her fever down and keep it down, she develops uncontrollable n/v/d, continues to feel sob w/ cp, or feels like she is going to or does pass out. [facility] also instructs pt to continue taking 1G Tylenol every 8 hours for fever and using her albuterol nebulizer every 4 hours as needed. Pt gives her verbal understanding. [facility] is clear. Report completed by ANTONIO Mendez [id number]. [facility] Lab Orders: rapid flu (A+B): Performed rapid SARS CoV 2 Ag, QL IA, respiratory specimen: Performed [facility] Medication Orders: oseltamivir 75 mg capsule: Administered .................... .................... .................... .................... .................... .................... .................... . [facility] Consulted: Sandy Mcpherson .................... .................... .................... .................... .................... .................... .................... . Disposition: Fulfilled SANDY MCPHERSON MD [address] [place] [address],[address], [place], [address], [facility] 01/08/2025 14:28:06 02/16/2025 text/html CRC Nurse Triage [...] signs of when to seek emergency care. Architectural Design Professor Organization Information for Yamile Cary Business Legal Name: [employer]? Address: [address] [place] [address], Print Binding Worker: Constantin Machado MD CLIA No.: [id number] Architectural Design Professor POC Test Results from Yamile Cary Rapid COVID antigen (10:48:16) COVID: - Rapid influenza antigen (10:48:17) Flu: - Rapid strep test (10:48:18) Strep: - .................... .................... .................... .................... .................... .................... .................... . Architectural Design Professor Note From Yamile Cary: Sent to a [...] covid/flu test: neg; Rapid strep test: neg; [facility] consulted and pt is advised she should [...] .................... .................... .................... .................... .................... .................... . [facility] Consulted: Elio Oconnell .................... .................... .................... .................... .................... .................... .................... . Disposition: Fulfilled Elio Oconnell MD [address] [facility],[address] [facility], [place], [address], ELENITA - BRITTANY PEREZ 02/16/2025 12:29:21 OBGyn Episode No OBEpisode recorded.
--- OUTSIDE RECORDS SUMMARY | 2025-02-23 14:42 | XMS_ITS | Patient Health Record ---
Author Organization [facility] Address [address] [place] [address] Care Team Providers Care Restaurant Busser Name Role Phone Adrianna Sharp Primary Care Provider Bin Salinas Unavailable [phone] Reason For Referral No Information Problems Problem Type SNOMED Code ICD Code Onset Dates Problem Status W/U Status Risk Notes Problem Gallstones (053430426) Gallstones (K80.20) Active confirmed Plan Of Treatment No Information Insurance Providers Payer Name Payer Address Payer Phone Subscriber Number Group Number Insured Name Patient Relationship to Insured Coverage Start Date Coverage End Date MEDICARE OF [facility] [address] [place] [address] [id number] ISMAEL JUÁREZ Self - patient is the insured MEDICAID OF [facility] [address] [place] [address] [id number] ISMAEL JUÁREZ Self - patient is the insured MEDICARE OF [place] [address] [place] [address] [id number] ISMAEL JUÁREZ Self - patient is the insured [facility] [address] [place] [phone] [id number] ISMAEL JUÁREZ Self - patient is the insured 3 Medical (General) History Medical History History ICD Code colon and egd 11-30-2009 history of anemia gastric polyp pernicious anemia
--- OUTSIDE RECORDS SUMMARY | 2025-02-23 14:42 | XMS_ITS | Encounter Summary ---
Author Organization [facility] Address [address] [place] [address] Care Team Providers Care Copper Miner Name Role Phone Pcp, No Primary Care Provider Unavailabl e Adrianna Sharp MD Primary Care Provider [phone] Encounter Details Date Type Department Care Team (Late st Contact Info) Description 04/28/2023 Scanned Document [facility] Emergency Department [address] [place] [address] Provider, Generic Social History Tobacco Use Types [...] place to sleep or slept in a care home (including now)? No 04/29/2023 Comments Unknown Sex [...] documented as of this encounter Care Teams Copper Miner Relationship Specialty Start Date End Date Pcp, No [address] [place] [address] PCP - General 04/28/23 04/28/23 Adrianna Sharp MD [address] [place] [address] PCP - General Family Medicine 04/29/23 documented as of this encounter
== END 2025-02-23 13:59 | disposition home or self-care (01) ==
LOC: HO.HMCH 13:25
PROVIDERS: PCP Internal Medicine; Visit Provider Internal Medicine
DX: E04.1 Nontoxic single thyroid nodule (principal); E66.01 Morbid (severe) obesity due to excess calories; Z68.41 Body mass index [BMI] 40.0-44.9, adult; E03.9 Hypothyroidism, unspecified; E78.00 Pure hypercholesterolemia, unspecified; F41.9 Anxiety disorder, unspecified; F32.0 Major depressive disorder, single episode, mild; G47.33 Obstructive sleep apnea (adult) (pediatric)

== ENCOUNTER → 2025-02-23 13:24 | Outpatient (BNVA) | payer OTHER, SELFPAY | PROVIDERS: PCP Internal Medicine; Visit Provider Internal Medicine | DX: E04.1 Nontoxic single thyroid nodule (principal); E03.9 Hypothyroidism, unspecified; E78.00 Pure hypercholesterolemia, unspecified; F41.9 Anxiety disorder, unspecified; F32.0 Major depressive disorder, single episode, mild; E66.01 Morbid (severe) obesity due to excess calories; Z68.41 Body mass index [BMI] 40.0-44.9, adult; G47.33 Obstructive sleep apnea (adult) (pediatric) | CPT/HCPCS: 99212 ==

== ENCOUNTER 2025-02-25 09:53 | Day surgery (SDC) | payer OTHER, SELFPAY ==
[2025-02-23 08:41] VITALS: BMI 42.0
[2025-02-25] VITALS (17 sets, daily range): BP systolic 127–169; BP diastolic 59–94; PULSE 66–83; RESP 16–22; TEMP 36.2–36.4; O2SAT 92–99; BMI 42.9
[2025-02-25] MEDS: Lactated Ringers 1,000 ML 100 ML IVCONT (10:55)
--- NOTE | 2025-02-25 11:07 | P.CONAN_ITS ---
Documented by User: Safia Rosado NP 02/23/25 13:44 HPI - Anesthesia Eval Consult details Narrative: 69yo F for Right Shoulder Arthroscopy, distal clavicle excision, acromioplasty, capsular release, manipulation Follows [facility] pulmo for asthma, DORA. Optimized for surgery, consider extubation to BiPAP Follows [facility] cardiology for LBBB, mild . Optimized for surgery. ECHO 10/2024 shows no . (10/2022 False + nuc stress, cath 12/2022 negative) PMFSH Active Problems Active Problems: All Active Problems Low phosphate levels (Acute) Fatigue (Acute) Diarrhea (Acute) Hypothyroidism (Acute) Asthma exacerbation, mild (Acute) SOB (shortness of breath) (Acute) Cough (Acute) Opiate use (Acute) Influenza (Acute) Encounter for preoperative pulmonary examination (Acute) Orthopnea (Acute) Anxiety (Acute) Impingement of right shoulder (Acute) Dyspnea on exertion (Acute) Rotator cuff insufficiency of right shoulder (Acute) Pure hypercholesterolemia (Acute) Hepatic abscess (Acute) Post-ERCP acute pancreatitis (Acute) Liver lesion, right lobe (Acute) Liver mass (Acute) Choledocholithiasis (Acute) Biliary colic (Acute) Abnormal nuclear stress test (Acute) Mild major depression (Acute) Nonrheumatic aortic (valve) stenosis (Acute) LBBB (left bundle branch block) (Acute) Iron deficiency anemia (Acute) Post-menopausal (Acute) Low left ventricular ejection fraction (Acute) Aortic stenosis (Acute) Hair loss (Acute) Aphthous stomatitis (Acute) Somatic dysfunction of right sacroiliac joint (Acute) Asthma (Acute) DORA on CPAP (Acute) Bacterial pneumonia (Acute) Vitamin D deficiency (Acute) Zinc deficiency (Acute) Family history of lupus anticoagulant disorder (Acute) History of cardiac cath (Acute) Morbid obesity (Acute) Elevated TSH (Acute) Murmur (Acute) B12 deficiency (Acute) History of vitamin D deficiency (Acute) Chronic pain (Acute) Lumbar degenerative disc disease (Acute) Past Medical History Medical History Influenza A Bacterial pneumonia Vitamin D deficiency Zinc deficiency Family history of lupus anticoagulant disorder Right shoulder pain Severe major 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 psychotic features DORA on CPAP Acute hypoxemic respiratory failure Right lower lobe pneumonia CKD (chronic kidney disease) stage 3, GFR 30-59 ml/min Acute pancreatitis Anemia Morbid obesity Elevated TSH Murmur Moderate persistent asthma B12 deficiency Hair loss Dyslipidemia Lumbar degenerative disc disease History of vitamin D deficiency Arthritis History of left bundle branch block (LBBB) Breast cancer Mild aortic stenosis Tinnitus Chronic pain HTN (hypertension) Family History Family History Father Prostate cancer Hypertension Mother Skin cancer Dementia Diabetes Daughter Lupus Maternal Grandmother Diabetes Hypertension Maternal Grandfather No problems noted. Paternal Grandmother No problems noted. Paternal Grandfather Cancer Brother Prostate cancer Family history of problems with anesthesia: No Surgical History Surgical History Hx of hand surgery History of cholecystectomy History of cardiac cath Hx of bilateral cataract extraction History of total right knee replacement (TKR) History of total left knee replacement (TKR) History of dilation and curettage Hx of colonoscopy Hx of esophagogastroduodenoscopy History of lymph node dissection of left axilla S/P lumpectomy, left breast History of Problems with Anesthesia: No Social History Social History Household Members: Spouse and Family Household Members Other:: Graddaughter Housing: House Do you presently have visiting nurse or other home services: Yes Alcohol intake: never Patient Tobacco Use Status: Never used Tobacco e-Cigarette/Vaping Use: Never Used Second Hand Smoke Exposure: No Use of substances other than those prescribed or required for medical reasons: No Substance Use Type: Marijuana Are you DNR?: No Advance Directives: No Advance Directives Information Provided: Yes Advance Directives Date on File: 08/05/22 Patient : No : No Poor oral hygiene: No service: No Current occupational status: disabled Cognitive needs: Yes (Cane) Hearing needs: No Vision needs: Yes (Glasses) Meds Allergies Allergy/AdvReac Type Severity Reaction Status Date / Time latex [LATEX] Allergy Intermediate RASH Verified 02/23/25 13:49 oxycodone AdvReac Severe Itching Verified 02/23/25 13:49 Active Medications: Current Medications Cefazolin Sodium/Dextrose (Ancef) 2 gm in 50 mls @ 100 mls/hr IV PREOP ONE Stop: 02/25/25 05:55 Home Medications ?Medication ?Instructions ?Recorded ?Confirmed ?Last Taken ?Type albuterol sulfate 90 mcg/actuation 2 inh inhalation Q4H PRN shortness 08/08/23 02/23/25 02/25/25 History breath activated powder of breath or wheezing inhaler,sensor (Proair Digihaler) furosemide 40 mg tablet 40 mg PO DAILY 01/09/25 02/23/25 01/07/25 History lorazepam 0.5 mg tablet 0.5 mg PO DAILY PRN anxiety 01/09/25 02/23/25 Unknown History Exam Height,Weight and Vital Signs: Height 4 ft 11 in Weight 94.347 kg Pertinent Lab Results Pertinent Lab Results: Laboratory Tests 01/14/25 01/14/25 15:54 Unknown WBC 9.3 Hgb 12.6 Hct 38.7 Plt Count 291 D Sodium 141 Potassium 3.6 Chloride 106 Carbon Dioxide 22 BUN 26 H Creatinine 0.87 Narrative Narrative: EKG 12/2024 Vent. Rate : 88 BPM Atrial Rate : 88 BPM P-R Int : 146 ms QRS Dur : 146 ms QT Int : 396 ms P-R-T Axes : 36 -11 157 degrees QTcB Int : 479 ms Sinus rhythm with Fusion complexes Left bundle branch block Abnormal ECG When compared with ECG of 01-Jan-2025 22:28, Fusion complexes are now Present ECHO 10/2024 Conclusions: - The left ventricular systolic function is mildly decreased. The calculated ejection fraction is 48% by biplane method. - No obvious valvular pathology seen on this study. Conclusions: - The left ventricular systolic function is mildly decreased. The calculated ejection fraction is 48% by biplane method. - No obvious valvular pathology seen on this study. Left Ventricle Normal left ventricular cavity size. The left ventricular systolic function is mildly decreased. The calculated ejection fraction is 48% by biplane method. There is paradoxical septal motion consistent with a left bundle branch block. Evidence suggests grade I (mild) diastolic dysfunction. There is mild septal and mild basal asymmetric hypertrophy. Aortic Valve There is a normal trileaflet aortic valve. There is no aortic valve stenosis. There is no aortic valve regurgitation Assessment and Plan Assessment Anesthesia Assessment: Chart Reviewed Final Anesthetic Review Family History of Problems with Anesthesia: No History of Problems with Anesthesia: No Documented by User: Jayshree Mcgrath DO 02/25/25 11:09 [facility] Past Medical History Medical History Influenza A Bacterial pneumonia Vitamin D deficiency Zinc deficiency Family history of lupus anticoagulant disorder Right shoulder pain Severe major 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 psychotic features DORA on CPAP Acute hypoxemic respiratory failure Right lower lobe pneumonia CKD (chronic kidney disease) stage 3, GFR 30-59 ml/min Acute pancreatitis Anemia Morbid obesity Elevated TSH Murmur Moderate persistent asthma B12 deficiency Hair loss Dyslipidemia Lumbar degenerative disc disease History of vitamin D deficiency Arthritis History of left bundle branch block (LBBB) Breast cancer Mild aortic stenosis Tinnitus Chronic pain HTN (hypertension) Family History Family History Father Prostate cancer Hypertension Mother Skin cancer Dementia Diabetes Daughter Lupus Maternal Grandmother Diabetes Hypertension Maternal Grandfather No problems noted. Paternal Grandmother No problems noted. Paternal Grandfather Cancer Brother Prostate cancer Family history of problems with anesthesia: No Surgical History Surgical History Hx of hand surgery History of cholecystectomy History of cardiac cath Hx of bilateral cataract extraction History of total right knee replacement (TKR) History of total left knee replacement (TKR) History of dilation and curettage Hx of colonoscopy Hx of esophagogastroduodenoscopy History of lymph node dissection of left axilla S/P lumpectomy, left breast History of Problems with Anesthesia: No Social History Social History Household Members: Spouse and Family Household Members Other:: Graddaughter Housing: House Do you presently have visiting nurse or other home services: Yes Alcohol intake: never Patient Tobacco Use Status: Never used Tobacco e-Cigarette/Vaping Use: Never Used Second Hand Smoke Exposure: No Use of substances other than those prescribed or required for medical reasons: No Substance Use Type: Marijuana Are you DNR?: No Advance Directives: No Advance Directives Information Provided: Yes Advance Directives Date on File: 08/05/22 Patient : No : No Poor oral hygiene: No service: No Current occupational status: disabled Cognitive needs: Yes (Cane) Hearing needs: No Vision needs: Yes (Glasses) Meds Allergies Allergy/AdvReac Type Severity Reaction Status Date / Time latex [LATEX] Allergy Intermediate RASH Verified 02/23/25 13:49 oxycodone AdvReac Severe Itching Verified 02/23/25 13:49 Home Medications ?Medication ?Instructions ?Recorded ?Confirmed ?Last Taken ?Type albuterol sulfate 90 mcg/actuation 2 inh inhalation Q4H PRN shortness 08/08/23 02/23/25 02/25/25 History breath activated powder of breath or wheezing inhaler,sensor (Proair Digihaler) furosemide 40 mg tablet 40 mg PO DAILY 01/09/25 02/23/25 01/07/25 History lorazepam 0.5 mg tablet 0.5 mg PO DAILY PRN anxiety 01/09/25 02/23/25 Unknown History Exam Exam Date and Time: 02/25/25 1105 Height,Weight and Vital Signs: Height 4 ft 11 in Weight 94.347 kg Vital Signs Temperature 97.2 F 02/25/25 10:43 Pulse Rate 83 02/25/25 10:43 Respiratory Rate 16 02/25/25 10:43 Blood Pressure 140/88 H 02/25/25 10:43 Pulse Oximetry 95 02/25/25 10:43 Oxygen Delivery Method Room Air 02/25/25 10:43 Temperature 97.2 F 02/25/25 10:43 Pulse Rate 83 02/25/25 10:43 Respiratory Rate 16 02/25/25 10:43 Blood Pressure 140/88 H 02/25/25 10:43 Pulse Oximetry 95 02/25/25 10:43 Oxygen Delivery Method Room Air 02/25/25 10:43 Airway Mallampati Class: III TM Dist: <=3cm Neck ROM: Full Loose/Missing/Broken Teeth: Yes (multiple missing and broken teeth) Heart: S1S2 Lungs: CTAB Assessment and Plan Assessment Anesthesia Assessment: Anesthesia Plan Discussed and Chart Reviewed Final Anesthetic Review Family History of Problems with Anesthesia: No History of Problems with Anesthesia: No NPO: Yes ASA Class: III Final Preanesthetic Review: No Changes in Pt Med Stat, Meds/Allgs Chart Reviewed, Consent Obtained/Reviewed and Anes Risks/Benef Reviewed Patient Risk: Intermediate Procedure Risk: Intermediate Anesthetic Plan Anesthetic Plan: GA and Agree w/ Assess. and Plan Disposition: Standard PACU
--- NOTE | 2025-02-25 12:55 | PM.OP ---
Brief Operative Note Date of Service: 02/25/25 Pre-op diagnosis: Right shoulder impingement syndrome, right shoulder acromioclavicular joint arthritis, right shoulder adhesive capsulitis Post-op diagnosis: other (Same as preoperative diagnoses as well as right shoulder long head biceps tendon tear) Procedure: Right shoulder arthroscopic distal clavicle excision, right shoulder arthroscopic acromioplasty, right shoulder arthroscopic biceps tenotomy, right shoulder arthroscopic anterior capsular release, right shoulder manipulation under anesthesia Implants: none Surgeon: Maciej Tran MD Anesthesia: GETA and regional Was an Artificial Limb Fitter used for this Procedure?: No Estimated blood loss (mL): 10 Pathology: none sent Condition: stable Disposition: PACU
--- NOTE | 2025-02-25 12:56 | W.PM.OPN ---
Operative Note Operative Note Date of Service: 02/25/25 Narrative: After the patient was identified as Marita Murray and her right shoulder was initialed by myself the patient was brought to the holding area where a right shoulder interscalene regional block was performed by the anesthesiologist in routine fashion. The patient was then brought to the operating room where general anesthesia was induced by the anesthesiologist in routine fashion. The patient was given 2 g of IV Ancef preoperatively for infection prophylaxis. Examination under anesthesia of the patient's right shoulder showed decreased passive range of motion when compared to the left shoulder. The patient's right shoulder had passive forward flexion to 130 degrees compared to 170 degrees, external rotation to 40 degrees compared to 60 degrees, and internal rotation to 50 degrees compared to 60 degrees. The patient was gently positioned in the beach chair position with all bony prominences well padded. The patient's right shoulder region and upper extremity were prepped and draped in sterile fashion. A formal time-out was completed. A #11 scalpel blade was used to make a posterior portal 2 cm inferior and 1 cm medial to the posterolateral corner of the acromion. Blunt trocar technique was used to enter the glenohumeral joint in routine fashion. An anterior portal was made just lateral to the coracoid process after proper positioning was confirmed using a spinal needle. Diagnostic arthroscopy showed minimal degenerative changes of the glenoid and humeral head articular surfaces. There was no evidence of rotator cuff tearing. There was tearing of the long head of the biceps tendon measuring approximately 80% of the tendon width. Thus, a biceps tenotomy was performed using the arthroscopic biter and arthroscopic shaver. There was inflammation of the anterior joint capsule consistent with adhesive capsulitis. The ArthroCare Wand was then used to perform an anterior capsular release between the inferior border of the biceps tendon and the superior border of the subscapularis tendon. The arthroscope was then placed from the posterior portal into the subacromial space. A lateral portal was made 2 fingerbreadths lateral to the anterior lateral corner of the acromion. The ArthroCare Wand was used to ablate soft tissues along the undersurface of the acromion as well as to excise the coracoacromial ligament. There was a sharp spur along the undersurface of the acromion which was removed using the hooded bur. The arthroscope was then placed into the lateral portal and the acromioplasty was completed with the bur in the posterior portal using the posterior aspect of the acromion as a cutting block. The ArthroCare Wand was then brought in through the anterior portal and was used to ablate soft tissues along the acromioclavicular joint and distal clavicle. The posterior and superior ligamentous structures were left intact. A distal clavicle excision of 8 mm was performed using the fluted bur. Any remaining bursal tissue was removed using the arthroscopic shaver. The subacromial space was irrigated and then drained. All arthroscopic instruments were removed. A gentle manipulation under anesthesia was then performed. Full passive range of motion was easily attained. The 3 portals were closed with 3-0 nylon interrupted suture. The subacromial space was injected with Marcaine. Dry sterile dressing was placed over all incisions. The patient's right upper extremity was placed into a sling. The patient was awoken and extubated in the operating room. The patient was transferred to the recovery room in stable condition.
[2025-02-25] MEDS: cefTRIAXone sodium 1 GM VIAL IVPUSH (13:42)
[2025-02-25] MEDS: Albuterol Sulfate (0.083%) 2.5 MG/3 ML VIAL.NEB INHALE (16:39)
== END 2025-02-25 18:30 | disposition home or self-care (01) ==
PROVIDERS: PCP Internal Medicine; Visit Provider Orthopaedic Surgery
PROC: (CPT 29805; principal; 2025-02-25 12:00)
DX: M75.41 Impingement syndrome of right shoulder (principal); M75.01 Adhesive capsulitis of right shoulder; M19.011 Primary osteoarthritis, right shoulder; M25.511 Pain in right shoulder; M25.611 Stiffness of right shoulder, not elsewhere classified; I12.9 Hypertensive chronic kidney disease with stage 1 through stage 4 chronic kidney disease, or unspecified chronic kidney disease; N18.30 Chronic kidney disease, stage 3 unspecified; E78.5 Hyperlipidemia, unspecified; G47.33 Obstructive sleep apnea (adult) (pediatric); J45.40 Moderate persistent asthma, uncomplicated; Z85.3 Personal history of malignant neoplasm of breast; F33.9 Major depressive disorder, recurrent, unspecified; E55.9 Vitamin D deficiency, unspecified; E53.8 Deficiency of other specified B group vitamins; M51.369 Other intervertebral disc degeneration, lumbar region without mention of lumbar back pain or lower extremity pain; E66.01 Morbid (severe) obesity due to excess calories; Z68.41 Body mass index [BMI] 40.0-44.9, adult; Z79.51 Long term (current) use of inhaled steroids; Z99.89 Dependence on other enabling machines and devices; Z79.899 Other long term (current) drug therapy; Z88.5 Allergy status to narcotic agent; Z91.040 Latex allergy status; Z96.653 Presence of artificial knee joint, bilateral; Z98.890 Other specified postprocedural states
CPT/HCPCS: 29824; 29825; 29826; J0131; J0171; J0690; J0696; J1100; J2003; J2250; J2405; J2704; J2795; J3010

== ENCOUNTER → 2025-02-25 09:53 | Outpatient (BNV) | payer OTHER, SELFPAY | PROVIDERS: PCP Internal Medicine; Visit Provider Orthopaedic Surgery | DX: M75.41 Impingement syndrome of right shoulder (principal); M19.011 Primary osteoarthritis, right shoulder; M75.01 Adhesive capsulitis of right shoulder; S46.111A Strain of muscle, fascia and tendon of long head of biceps, right arm, initial encounter | CPT/HCPCS: 29824; 29826 ==

== ENCOUNTER 2025-02-26 11:30 | Emergency (ER) | payer OTHER, SELFPAY ==
--- NOTE | ~2025-02-26 | XR_ITS ---
CLINICAL HISTORY: post op hypoxia, chf asthma hx 1 view chest x-ray Comparison: CR/SR - XR CHEST 2V - 01/14/25 16:10 EDT Findings: No consolidation or effusion. Normal size heart. No acute fracture. IMPRESSION: 1. No acute findings. This document has been electronically signed by: Baldomero Huertas MD on 02/26/2025 12:45:27
[2025-02-26 11:33] VITALS: BP 122/54; BP 132/86; PULSE 90; PULSE 91; RESP 18; TEMP 36.8; O2SAT 91; O2SAT 95; BMI 44.9
--- NOTE | 2025-02-26 11:42 | ED.UPPEXIN ---
HPI - Extremity Injury (Upper) General Chief Complaint: Dyspnea Stated Complaint: DIFFICULTY BREATHING Time Seen by Provider: 02/26/25 11:37 History of Present Illness ED Provider: Alexandr Galarza MD HPI narrative: Underlying asthma and is overweight she had a total shoulder replacement yesterday. She tells me yesterday upon ambulation for discharge she was hypoxic in the mid 80s. When resting she was comfortable and documented oxygen saturations in the system did not reveal anything below 90%. She denies chest pain at this time she is mainly here for pain in her shoulder missing her Dilaudid. 69-year-old female, I received a pre arrival call by EMS team concerned about ambulatory hypoxia the patient reporting that her right shoulders hurting since surgery yesterday. The patient has Related Data Home Medications ?Medication ?Instructions ?Recorded ?Confirmed albuterol sulfate 90 mcg/actuation 2 inh inhalation Q4H PRN shortness 08/08/23 02/23/25 breath activated powder of breath or wheezing inhaler,sensor (Proair Digihaler) furosemide 40 mg tablet 40 mg PO DAILY 01/09/25 02/23/25 lorazepam 0.5 mg tablet 0.5 mg PO DAILY PRN anxiety 01/09/25 02/23/25 Previous Rx's ?Medication ?Instructions ?Recorded miscellaneous medical supply #1 ea 11/08/20 miscellaneous medical supply #1 ea 11/08/20 walker (Ultra-Light Rollator misc) #1 ea 11/08/20 nebulizers (AeroEclipse II #1 ea 09/04/22 Nebulizer) Advair HFA 230 mcg-21 2 puff inhalation Q12H #12 ea 06/30/23 mcg/actuation aerosol inhaler (fluticasone propion-salmeterol) CPAP (CPAP Machine/Device) #1 ea 11/03/23 showerhead #1 ea 12/10/23 atorvastatin 20 mg tablet 20 mg PO DAILY 90 days #90 tabs 03/25/24 nystatin 100,000 unit/gram topical 1 appl topical BID PRN rash 2 10/10/24 cream weeks #30 grams metoprolol succinate 25 mg 25 mg PO DAILY 90 days #90 tabs 11/02/24 tablet,extended release 24 hr albuterol sulfate 2.5 mg/3 mL 2.5 mg (3 mL) inhalation Q6H PRN 11/04/24 (0.083 %) solution for nebulization bronchospasm 30 days #75 mL oxycodone-acetaminophen 7.5 mg-325 1 tab PO Q8H PRN pain 30 days #90 12/20/24 mg tablet tabs commode #1 ea 12/21/24 escitalopram oxalate 20 mg tablet 20 mg PO BEDTIME 90 days #90 tabs 12/21/24 cholecalciferol (vitamin D3) 50 50 mcg PO DAILY 90 days #90 caps 01/15/25 mcg (2,000 unit) capsule cyanocobalamin (vitamin B-12) 1,000 mcg PO DAILY #90 tabs 01/15/25 1,000 mcg tablet (Vitamin B-12) levothyroxine 50 mcg tablet 50 mcg PO DAILY 90 days #90 tabs 01/15/25 zinc acetate 50 mg (zinc) capsule 50 mg PO DAILY #30 caps 01/21/25 (Galzin) buspirone 10 mg tablet 10 mg PO TID 30 days #90 tabs 01/23/25 ondansetron 8 mg disintegrating 8 mg PO Q8H PRN nausea and 01/26/25 tablet vomiting 7 days #21 tabs hydromorphone 4 mg tablet 4 mg PO Q4H PRN pain #20 tabs 02/17/25 (Dilaudid) albuterol sulfate 90 mcg/actuation 2 puff inhalation QID #8.5 grams 02/26/25 aerosol inhaler (Ventolin HFA) Allergies Allergy/AdvReac Type Severity Reaction Status Date / Time latex [LATEX] Allergy Intermediate RASH Verified 02/26/25 11:38 oxycodone AdvReac Severe Itching Verified 02/26/25 11:38 REPLACED BY [facility] Past Medical History Medical History Influenza A Bacterial pneumonia Vitamin D deficiency Zinc deficiency Family history of lupus anticoagulant disorder Right shoulder pain Severe major 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 psychotic features DORA on CPAP Acute hypoxemic respiratory failure Right lower lobe pneumonia CKD (chronic kidney disease) stage 3, GFR 30-59 ml/min Acute pancreatitis Anemia Morbid obesity Elevated TSH Murmur Moderate persistent asthma B12 deficiency Hair loss Dyslipidemia Lumbar degenerative disc disease History of vitamin D deficiency Arthritis History of left bundle branch block (LBBB) Breast cancer Mild aortic stenosis Tinnitus Chronic pain HTN (hypertension) Surgical History Hx of hand surgery History of cholecystectomy History of cardiac cath Hx of bilateral cataract extraction History of total right knee replacement (TKR) History of total left knee replacement (TKR) History of dilation and curettage Hx of colonoscopy Hx of esophagogastroduodenoscopy History of lymph node dissection of left axilla S/P lumpectomy, left breast Family History Family History Father Prostate cancer Hypertension Mother Skin cancer Dementia Diabetes Daughter Lupus Maternal Grandmother Diabetes Hypertension Maternal Grandfather No problems noted. Paternal Grandmother No problems noted. Paternal Grandfather Cancer Brother Prostate cancer Social History Social History Household Members: Spouse and Family Household Members Other:: Graddaughter Housing: House Do you presently have visiting nurse or other home services: Yes Alcohol intake: never Patient Tobacco Use Status: Never used Tobacco Smoked in Last 30 Days: No e-Cigarette/Vaping Use: Never Used Second Hand Smoke Exposure: No Use of substances other than those prescribed or required for medical reasons: No Substance Use Type: Marijuana Advance Directives: Yes Advance Directives on File: Yes Advance Directives Date on File: 08/05/22 service: No Current occupational status: disabled Cognitive needs: Yes (Cane) Hearing needs: No Vision needs: Yes (Glasses) Physical Exam Vital Signs: Vital Signs: Last Vital Signs Temp 98.3 F 02/26/25 14:54 Pulse 88 02/26/25 14:54 Resp 18 02/26/25 14:54 BP 124/57 L 02/26/25 14:54 Pulse Ox 96 02/26/25 14:54 O2 Del Method Room Air 02/26/25 14:54 BMI result Body Mass Index 44.9 Const: Other: EXAM: Gen: Alert, awake, well appearing, well hydrated. Right arm in a sling Head: Atraumatic Eyes: Anicteric, Normal conjunctiva. ENT: Moist mucosa, no pallor. ? Neck: Supple. Respiratory: Breathing comfortably, No distress.Clear to auscultation bilaterally, symmetric chest expansion, No wheeze, rales, ronchi. Cardiovascular: Regular rate and rhythm. No murmurs or rub. Well perfused periphery, warm extremities. No edema. ? Abdominal: Soft, no objective distension. No palpable masses or obvious organomegaly. No focal tenderness, no guarding, no rebound tenderness or other peritoneal findings. : No flank tenderness. Neuro: Alert. Gross movement of all extremities intact. ?Intact sensation of the distal right arm , the arm is in a sling and we did not fully evaluated given the recent postop state Vital signs: See flowsheet Medications Administered Discontinued Medications Generic Name Dose Route Start Last Admin Trade Name Freq PRN Reason Stop Dose Admin Albuterol/Ipratropium 3 ml 02/26/25 11:46 02/26/25 12:18 Albuterol/Iprat 2.5/0.5mg 3 Ml Ampul.Neb INHALE 02/26/25 11:47 3 ml ONCE ONE Administration Hydromorphone HCl 1 mg 02/26/25 11:46 02/26/25 12:01 Hydromorphone Hcl 2 Mg Tablet PO 02/26/25 11:47 1 mg ONCE ONE Administration Medical Decision Making Medical Decision Making MDM Narrative: 69-year-old female with reported ambulatory hypoxia in the setting of postop state. Requesting pain medication. Pre arrival from EMS stated she was mid 80s on room air while ambulating. She has no underlying baseline O2 requirement. The patient arrived here by EMS, sinus rhythm in the 80s, O2 sat 96% on room air breathing comfortably no active wheeze or distress. Chest x-ray is clear of infiltrate no pneumothorax. She is slightly splinting due to the right shoulder pain. I have given her 1 mg oral Dilaudid with improvement. Patient was ambulated mainly stayed in the low 90s on room air but had transient 89% saturation. Perhaps she has underlying asthma exacerbation. A given how close the surgery was lack of signs of DVT no tachycardia low-grade fever it is unlikely that this is an acute pulmonary emboli. She may have chronic deconditioning, chronic exertional dyspnea given her body habitus, DORA, asthma. Empiric asthma treatment in the ED ambulation trial without distress or hypoxemia below 89% patient should call PCP tomorrow I think she is clear for discharge Lab Data 02/26/25 11:59 02/26/25 11:59 Labs: Lab Results 02/26/25 Range/Units 11:59 WBC 14.7 H (4.8-10.8) X10*3/uL RBC 4.51 (4.20-5.50) X10*6/uL Hgb 11.5 L (12.0-16.0) g/dl Hct 36.3 L (37.0-47.0) % MCV 80.5 (80.0-98.0) fL MCH 25.5 L (27.0-33.0) pg MCHC 31.7 (31.0-35.0) g/dl RDW 16.5 H (11.0-16.0) % Plt Count 196 D (160-400) X10*3/uL MPV 9.6 (9.4-12.3) fL Immature Gran % (Auto) 0.4 (0.0-0.4) % Neut % (Auto) 82.9 H (45-73) % Lymph % (Auto) 9.7 L (20-40) % [place] % (Auto) 6.9 (2-11) % Eos % (Auto) 0.0 (0-4) % Baso % (Auto) 0.1 (0-2) % Lymph # (Auto) 1.4 (1.2-4.9) X10*3/uL [place] # (Auto) 1.0 (0.1-1.2) X10*3/uL Eos # (Auto) 0.0 (0.0-0.4) X10*3/uL Baso # (Auto) 0.0 (0.0-0.2) X10*3/uL Abs Immat Gran (auto) 0.06 H (0.00-0.03) X10*3/uL Absolute Neuts (auto) 12.2 H (2.0-8.3) x10*3/uL Absolute Nucleated RBC 0.000 (0.0-0.012) X10*3/uL Nucleated RBC % (auto) 0.0 (0.0-0.2) /100WBC Sodium 143 (135-145) mmol/L Potassium 4.5 D (3.3-5.1) mmol/L Chloride 108 (96-108) mmol/L Carbon Dioxide 23 (22-29) mmol/L Anion Gap 17 (12-20) BUN 17 H (9-16) mg/dL Creatinine 0.76 (0.5-1.4) mg/dL Estim Creat Clear Calc 68.0 Estimated GFR > 60 Random Glucose 101 (60-115) mg/dL Calcium 9.6 (8.4-10.2) mg/dL B-Natriuretic Peptide 176 H (<100) pg/mL Discharge Plan Discharge Clinical Impression: Acute shoulder pain Patient Disposition: Home, Self-Care Instructions: Shoulder Pain (ED) Additional Instructions: DISCHARGE DIAGNOSES: Acute postoperative pain in the right shoulder. Fluctuating oxygen occasionally low on exertion. Possibly asthma exacerbation versus decreased volume of breathing due to postoperative pain HISTORY OF PRESENTATION: ?Shoulder pain, mild hypoxemia with ambulation EMERGENCY DEPARTMENT COURSE,TESTS, TREATMENTS: While in the ED today you received a chest x-ray no signs of collapsed lung pneumonia or other complication. Your oxygen remained stable in the mid to high 90s which is normal on room air you had no wheezing. You were given 1 nebulized breathing treatment. DISCHARGE MEDICATIONS: ?[We have made no changes to your regular medication regimen] FOLLOW-UP: ?Call your primary or general physician soon as possible to discuss your symptoms, your ED visit and to discuss follow up plans Call your primary doctor to assess your asthma and breathing in several days INSTRUCTIONS ?& RETURN PRECAUTIONS: If any symptoms change first call your primary physician, if it is after-hours your primary doctors office should have a provider biofuels plant operations engineer you can speak with. If the symptoms are severe or very concerning to you then call 911 or return to the ED. Return back to the emergency department if you develop severe or significant shortness of breath Alexandr Galarza MD Emergency Physician [facility] Prescriptions: New albuterol sulfate [Ventolin HFA] 90 mcg/actuation HFA aerosol inhaler 2 puff inhalation QID Qty: 8.5 0RF No Action (DME) [facility] See Rx Instructions .ROUTE .MEDSUPPLY Qty: 1 0RF Rx Instructions: GRAB BAR 18 (DME) miscellaneous medical supply [facility] See Rx Instructions .ROUTE .MEDSUPPLY Qty: 1 0RF Rx Instructions: toilet safety frame (DME) Ultra-Light Rollator Misc See Rx Instructions .ROUTE .MEDSUPPLY Qty: 1 0RF Rx Instructions: As directed (DME) nebulizers [AeroEclipse II Nebulizer[place] [facility] [place] .Route Qty: 1 0RF Rx Instructions: As directed Advair HFA 230-21 mcg/actuation HFA aerosol inhaler 2 puff inhalation Q12H Qty: 12 6RF (DME) CPAP Machine/Device Device See Rx Instructions .Route Qty: 1 0RF Rx Instructions: autoPAP 6-16 cmH2O (DME) showerhead See Rx Instructions .Route .MEDSUPPLY Qty: 1 0RF Rx Instructions: As directed atorvastatin 20 mg tablet 20 mg PO DAILY 90 Days Qty: 90 3RF nystatin 100,000 unit/gram cream 1 appl topical BID PRN (Reason: rash) 14 Days Qty: 30 0RF metoprolol succinate 25 mg tablet extended release 24 hr 25 mg PO DAILY 90 Days Qty: 90 3RF albuterol sulfate 2.5 mg /3 mL (0.083 %) solution for nebulization 2.5 mg inhalation Q6H PRN (Reason: bronchospasm) 30 Days Qty: 75 1RF oxycodone-acetaminophen 7.5-325 mg tablet 1 tab PO Q8H PRN (Reason: pain) 30 Days Qty: 90 0RF Rx Instructions: Partial Fill upon patient request. cyanocobalamin (vitamin B-12) [Vitamin B-12] 1,000 mcg tablet 1,000 mcg PO DAILY Qty: 90 1RF levothyroxine 50 mcg tablet 50 mcg PO DAILY 90 Days Qty: 90 1RF cholecalciferol (vitamin D3) 50 mcg (2,000 unit) capsule 50 mcg PO DAILY 90 Days Qty: 90 1RF buspirone 10 mg tablet 10 mg PO TID 30 Days Qty: 90 2RF ondansetron 8 mg tablet,disintegrating 8 mg PO Q8H PRN (Reason: nausea and vomiting) 7 Days Qty: 21 0RF Proair Digihaler 90 mcg/actuation aero powdr breath act w/sensor 2 inh inhalation Q4H PRN (Reason: shortness of breath or wheezing) furosemide 40 mg tablet 40 mg PO DAILY lorazepam 0.5 mg tablet 0.5 mg PO DAILY PRN (Reason: anxiety) (DME) commode Kit See Rx Instructions .Route Qty: 1 0RF Rx Instructions: As directed escitalopram oxalate 20 mg tablet 20 mg PO BEDTIME 90 Days Qty: 90 1RF Galzin 50 mg (zinc) capsule 50 mg PO DAILY Qty: 30 1RF hydromorphone [Dilaudid] 4 mg tablet 4 mg PO Q4H PRN (Reason: pain) Qty: 20 0RF Rx Instructions: Partial Fill upon patient request. Take 1/2 to 1 tab every 4 hours as needed for pain following your right shoulder surgery. Interventions: ED Discharge Assessment Last Done: 02/26/25 14:54 Discharge Date/Time: 02/26/25 15:01 Print Language: Wolof
[2025-02-26] MEDS: HYDROmorphone HCl 2 MG TABLET 1 MG PO (12:01)
[2025-02-26 12:07] LABS: MANUAL DIFF FLAG NO
[2025-02-26 12:09] LABS: Basophils Percent Auto 0.1 % (0-2); Hematocrit 36.3 % (37.0-47.0); Hemoglobin 11.5 g/dl (12.0-16.0); Imm Gran Abs Auto 0.06 X10*3/uL (0.00-0.03); Imm Gran Pct Auto 0.4 % (0.0-0.4); Lymphocytes Absolute Auto 1.4 X10*3/uL (1.2-4.9); Lymphocytes Percent Auto 9.7 % (20-40); Mean Corpuscular HGB Conc 31.7 g/dl (31.0-35.0); Mean Corpuscular Hemoglobin 25.5 pg (27.0-33.0); Mean Corpuscular Volume 80.5 fL (80.0-98.0); Mean Platelet Volume 9.6 fL (9.4-12.3); Monocytes Percent Auto 6.9 % (2-11); Neutrophils Absolute Auto 12.2 x10*3/uL (2.0-8.3); Neutrophils Percent Auto 82.9 % (45-73); Platelet Count 196 X10*3/uL (160-400); Red Blood Count 4.51 X10*6/uL (4.20-5.50); Red Cell Distribution Width 16.5 % (11.0-16.0); White Blood Count 14.7 X10*3/uL (4.8-10.8)
[2025-02-26 12:13] VITALS: BP 124/57; PULSE 82; RESP 20; O2SAT 95
[2025-02-26 12:18] VITALS: PULSE 84; RESP 13; O2SAT 95
[2025-02-26] MEDS: Albuterol/Iprat 2.5/0.5MG 3 ML AMPUL.NEB INHALE (12:18)
[2025-02-26 12:22] LABS: Anion Gap 17 (12-20); Blood Urea Nitrogen 17 mg/dL (9-16); Calcium 9.6 mg/dL (8.4-10.2); Carbon Dioxide 23 mmol/L (22-29); Chloride 108 mmol/L (96-108); Estimated Glomerular Filt Rate > 60; Glucose Random 101 mg/dL (60-115); Potassium 4.5 mmol/L (3.3-5.1); Sodium 143 mmol/L (135-145)
[2025-02-26 12:29] LABS: B Type Natriuretic Peptide 176 pg/mL (<100)
[2025-02-26 14:10] VITALS: BP 124/57; PULSE 88; RESP 16; O2SAT 97
[2025-02-26 14:23] VITALS: O2SAT 89
[2025-02-26 14:54] VITALS: BP 124/57; PULSE 88; RESP 18; TEMP 36.8; O2SAT 96
== END 2025-02-26 15:01 | disposition home or self-care (01) ==
PROVIDERS: Emergency Provider Emergency Medicine; PCP Internal Medicine
DX: M25.511 Pain in right shoulder (principal); R06.02 Shortness of breath; R09.02 Hypoxemia; I50.9 Heart failure, unspecified; Z79.899 Other long term (current) drug therapy
CPT/HCPCS: 36415; 71045; 80048; 83880; 85025; 94640; 99284

== ENCOUNTER → 2025-02-26 11:46 | Outpatient (BNV) | payer OTHER, SELFPAY | PROVIDERS: Emergency Provider Emergency Medicine; Visit Provider Radiology Diagnostic Radiology | DX: R09.02 Hypoxemia (principal) | CPT/HCPCS: 71045 ==

== ENCOUNTER 2025-03-10 11:36 | Outpatient (AMB) | payer OTHER, SELFPAY ==
[2025-03-10 11:49] VITALS: BMI 44.7
--- NOTE | 2025-03-10 11:49 | A.OFFVIS_ITS ---
Vital Signs 03/10/25 11:49 Height 4 ft 10 in Weight 214 lb BMI 44.7 Intake Visit Reasons: PO RT Shld 02/25/25 Intake Note: Marita is a 69 year old female who presents with complaints of mild to moderate discomfort in her right shoulder after undergoing right shoulder arthroscopic surgery on 02/25/2025. She has been taking Dilaudid which gives her mild relief. She denies any fevers or chills. She continues with her home stretching program. Allergies latex [LATEX] Allergy (Intermediate, Verified 03/10/25 11:59) RASH oxycodone Adverse Reaction (Severe, Verified 03/10/25 11:59) Itching Medication List - Last Reconciled 03/10/25 by Maciej Tran MD Advair HFA 230-21 mcg/actuation (fluticasone propion-salmeterol) 2 puffs inhalation Q12H NS albuterol sulfate 90 mcg/actuation (Proair Digihaler) 2 inhalations inhalation Q4H PRN albuterol sulfate 2.5 mg (3 mL) inhalation Q6H PRN 30 days albuterol sulfate 90 mcg/actuation (Ventolin HFA) 2 puffs inhalation QID atorvastatin 20 mg PO DAILY 90 days buspirone 10 mg PO TID 30 days cholecalciferol (vitamin D3) 50 mcg PO DAILY 90 days commode As directed CPAP (CPAP Machine/Device) autoPAP 6-16 cmH2O cyanocobalamin (vitamin B-12) (Vitamin B-12) 1,000 mcg PO DAILY escitalopram oxalate 20 mg PO BEDTIME 90 days furosemide 40 mg PO DAILY hydromorphone (Dilaudid) 4 mg PO Q4H PRN levothyroxine 50 mcg PO DAILY 90 days lorazepam 0.5 mg PO DAILY PRN metoprolol succinate ER 25 mg PO DAILY 90 days miscellaneous medical supply GRAB BAR 18 miscellaneous medical supply toilet safety frame nebulizers (AeroEclipse II Nebulizer) As directed nystatin 1 appl topical BID PRN 2 weeks ondansetron 8 mg PO Q8H PRN 7 days oxycodone-acetaminophen 7.5-325 mg 1 tab PO Q8H PRN 30 days [showerhead As directed] emmett (Ultra-Light Rollator mis) As directed zinc acetate (Galzin) 50 mg PO DAILY [facility] Medical History (Updated 03/10/25 @ 12:31 by Maciej Tran MD) Right shoulder pain Influenza A Bacterial pneumonia Vitamin D deficiency Zinc deficiency Family history of lupus anticoagulant disorder Severe major 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 psychotic features DORA on CPAP Acute hypoxemic respiratory failure Right lower lobe pneumonia CKD (chronic kidney disease) stage 3, GFR 30-59 ml/min Acute pancreatitis Anemia Morbid obesity Elevated TSH Murmur Moderate persistent asthma B12 deficiency Hair loss Dyslipidemia Lumbar degenerative disc disease History of vitamin D deficiency Arthritis History of left bundle branch block (LBBB) Breast cancer Mild aortic stenosis Tinnitus Chronic pain HTN (hypertension) Surgical History Hx of hand surgery History of cholecystectomy History of cardiac cath Hx of bilateral cataract extraction History of total right knee replacement (TKR) History of total left knee replacement (TKR) History of dilation and curettage Hx of colonoscopy Hx of esophagogastroduodenoscopy History of lymph node dissection of left axilla S/P lumpectomy, left breast Family History Father Prostate cancer Hypertension Mother Skin cancer Dementia Diabetes Daughter Lupus Maternal Grandmother Diabetes Hypertension Maternal Grandfather No problems noted. Paternal Grandmother No problems noted. Paternal Grandfather Cancer Brother Prostate cancer Social History Household Members: Spouse and Family Household Members Other:: Graddaughter Housing: House Do you presently have visiting nurse or other home services: Yes Alcohol intake: never Patient Tobacco Use Status: Never used Tobacco e-Cigarette/Vaping Use: Never Used Second Hand Smoke Exposure: No Substance Use Type: Marijuana Advance Directives Date on File: 08/05/22 service: No Current occupational status: disabled Cognitive needs: Yes (Cane) Hearing needs: No Vision needs: Yes (Glasses) Physical Exam Vital Signs: BMI result Body Mass Index 44.7 Extrem Other: Right shoulder examination shows that the surgical incisions are healing well, mild to moderate discomfort with range of motion, no instability Assessment & Plan Assessment & Plan (1) Right shoulder pain: Code(s): M25.511 - Pain in right shoulder Category: Medical Plan Ms. Murray is doing fairly well after undergoing right shoulder arthroscopic surgery on 02/25/2025. Her sutures were removed and Steri-Strips placed over her incisions. She does not wish to go to formal physical therapy at this time. She is encouraged to continue with her home stretching program. The do's and don'ts of lifting were discussed at length with the patient. She will contact me prior to her follow-up appointment in 6 weeks should any questions or concerns arise. Feel free to call me at any time should questions regarding her orthopedic management arise. Coding Level of Care Code Global (52835) Diagnoses Right shoulder pain M25.511
--- OUTSIDE RECORDS SUMMARY | 2025-03-10 12:11 | XMS_ITS | Data Portability ---
Author Organization [facility], [place] Therapist Address [address] [place] [address] Care Team Providers Care Nonprofit Manager Name Role Phone HIM CCA OTHER AMBROSE [...] to allow for adequate healing. Precautions reviewed. [email or web address] Not available 10/07/2024 21:49:22 01/08/2025 01/08/2025 Ms. [...] OTC medications advised and will continue to certified rehabilitation counselor on safe use for tylenol and/or [...] Assessment and Plan as documented by the Bridge Repairer. We discussed the diagnostic uncertainty of home [...] to call 911- verbalized understanding of instruction. Not available 01/08/2025 12:22:55 02/16/2025 02/16/2025 Impression: [...] would benefit from in person evaluation in [facility] ED for consideration of imaging including CT [...] Primary care, consider neck imaging Disposition: KATEY [email or web address] Not available 02/16/2025 12:28:51 02/26/2025 02/26/2025 Ms. Murray is a [age] yo F who has asthma, Arrhythmias (e.g., Atrial Fibrillation), Cancer, Sleep Apnea, Hypothyroidism, Anemia who is calling today with shortness of breath. Per patient and medic, Patient just had a brachial plexus block yesterday for a procedure for R shoulder. Now SOB. Clear breath sats. Saturating 95%. Ambulatory saturates 92% and HR 110, and respiratory rate. Is not on AC. Given the patient's recent anesthesia, procedure and fact that she's not on AC. Now with changes in her ambulatory saturations and h/o a fib, I am worried about possible PE. Lungs are clear, low suspicion for viral process or PNA. Low suspicion for blood loss given the procedure done. Signed out to [facility] at 11:25am. I provided real -time medical direction via phone for this encounter, and was available for additional phone based assistance as needed. I have reviewed and agree with the Assessment and Plan as documented by the Bridge Repairer. We discussed the diagnostic uncertainty of home visits and the risk associated with this. In this case the patient and I felt transfer to the ER was safest for disposition and continued care as their needs exceeded what could safely be supported in the home setting. Not available 02/26/2025 11:27:13 Plan of Treatment Reminders Order Date Submit Date Provider Last Modified By Organization Details Last Modified Time Details Appointments None recorded. Lab rapid SARS CoV 2 Ag, QL IA, respiratory specimen [address], [id number] 5 14:26:53 rapid flu (A+B) [address], [address] 5 14:26:08 rapid strep group A, throat [address], [address] 5 14:28:05 rapid flu (A+B) 2024 025 [facility] [place], [address] 12:22:27 rapid SARS CoV 2 Ag, QL IA, respiratory specimen [address] [facility] [address] [place] [address], [address] 5 12:22:26 rapid flu (A+B) [address] - [facility], [address] [place] [address], [address] 14:16:35 rapid SARS CoV 2 Ag, QL IA, respiratory specimen [address], [address] [place] [address], [address] 14:16:35 Referral None recorded. Procedures None recorded. Surgeries None recorded. Imaging None recorded. Medication Orders oseltamivir 75 mg capsule [address]/[facility]3, [address] [place] [address], [address], 12:22:25 Tamiflu 75 mg capsule [address] [place] [address]/Pharmacy #0373, [address] [place] [address], [address], 5 12:22:25 ipratropium 0.5 mg-albutero l 3 mg (2.5 mg base)/3 mL nebulizatio n soln [address]/Pharmacy #0373, [address] [place], [address], 5 14:16:35 prednisone 10 mg tablet 2024 025 [facility], [address] [place], [address], 5 14:18:56 prednisone 20 mg tablet 2024 025 [email or web address], [address] [place], [address], 5 14:18:54 clotrimazol e 1 % topical cream 2023 024 [facility], [address] [place], [address], 20:06:27 Patient TargetsNo targets recorded. Patient InstructionsNo instructions recorded. Reason for Referral None Reported. Results Created Date Observation Date Name Description Value Unit Range Abnormal Flag Note LastModifiedBy Organization Detail LastModifiedTime 01/09/2001/08/2025 rapid SARS CoV 2 Ag, QL IA, respi rator y speci men rapid SARS CoV 2 Ag, QL IA, respiratory specimen negati ve Not Available [facility] [address] [place] [address], [address] 01/08/2025 11:33:21 01/09/2001/08/2025 rapid flu (A+B) Flu positi ve Not Available [facility] [address] [place] [address], [address] 01/08/2025 11:33:21 Result Notes None recorded. Medical Equipment None Reported. Allergies Allergen ID Allergen Name Allergen Category Reaction Reaction Severity Criticality Documentation Date Start Date Code Code System Note Provider Name and Address Organization Details Recorded Time 48959 oxycodone medicatio n Not available Not available Not available 10/07/2024 7804 RxNorm Not Available [facility] - production 4 16:21:18 66438 latex environme nt,medica tion Not available Not available Not available 10/07/2024 46551 91 RxNorm Not Available [facility] - production [...] /min 140 mm[Hg] 82 mm[Hg] Not Available [facility] - [facility] 4 20:04:20 Date Recorded Body weight Respiratory rate Heart rate Body height Oxygen saturation Oxygen saturation in Arterial blood by Pulse oximetry Body temperature Systolic blood pressure Diastolic blood pressure Provider Name and Address Organization Details Last Updated DateTime 5 18647.3 2 g 18 /min 68 /min 147.32 cm 96 % 96 % 98 [degF] 140 mm[Hg] 85 mm[Hg] Not Available [facility] - [employer] 5 14:10:41 Date Recorded Oxygen saturation Oxygen saturation in Arterial blood by Pulse oximetry Respiratory rate Body temperature Body weight Body height Heart rate Systolic blood pressure Diastolic blood pressure Provider Name and Address Organization Details Last Updated DateTime 5 90 % 90 % 20 /min 103.5 [degF] 53238.1 36 g 149.86 cm 100 /min 119 mm[Hg] 75 mm[Hg] Not Available [facility] - [facility] 5 11:37:03 Date Recorded Body temperature Heart rate Oxygen saturation Oxygen saturation in Arterial blood by Pulse oximetry Body weight Body height Respiratory rate Systolic blood pressure Diastolic blood pressure Provider Name and Address Organization Details Last Updated DateTime 5 98.8 [degF] 72 /min 95 % 95 % 00697.1 36 g 149.86 cm 18 /min 143 mm[Hg] 85 mm[Hg] Not Available [facility] - production 5 10:50:27 Date Recorded Heart rate Oxygen saturation Oxygen saturation in Arterial blood by Pulse oximetry Oxygen saturation Oxygen saturation in Arterial blood by Pulse oximetry Respiratory rate Respiratory rate Heart rate Body temperature Systolic blood pressure Diastolic blood pressure Provider Name and Address Organization Details Last Updated DateTime 5 90 /min 96 % 96 % 91 % 91 % 24 /min 18 /min 110 /min 98.2 [degF] 132 mm[Hg] 86 mm[Hg] Not Available [facility] - [facility] 5 10:47:10 Social History None recorded. Functional Status None recorded. Mental Status None recorded. Family History Nothing Reported. Medical History No medical history recorded. Gynecological HistoryNo gynecological history recorded. Obstetrics History GPAL:G 0 P 0 0 0 0 Past Encounters Encounter ID Performer Location Encounter Start Date Encounter Closed Date Diagnosis/Indication Diagnosis SNOMED-CT Code Diagnosis ICD10 Code Diagnosis Note [id number] MAU FLYNN MD [facility] [address] [place] [id number] 10/07/2024 20:04:14 10/07/2024 23:05:27 Tinea corporis 55501748 B35.4 [id number] Sanam Russell MD [facility] - [facility] [address] [place] [id number] 11/02/2024 14:06:32 11/02/2024 22:25:51 Upper respiratory infection 89341554 J06.9 Evaluation in the field was performed by my head of transport logistics colleague, as noted above, I provided real-time direction and supervisio n for this visit. 68yo F PMHx asthma p/w 2 weeks URI symptoms including cough, rhinorrhea , and increased wheezing without fevers, chest pain. Improved with inhalers. Reports she usually receives antibiotic s every year for this. Denies hx tobacco use. On head of transport logistics eval VS sat 96% RA normal RR. [...] shortness of breath, cough, chest pain, fever. [id number] SANDY MCPHERSON MD [facility] - [facility] [address] [place] [id number] 01/08/2025 11:31:19 01/10/2025 13:55:12 Viral syndrome 885186383 B34.9 [id number] Elio Oconnell MD [facility] - [facility] [address] [place] [phone] 02/16/2025 10:50:19 02/16/2025 13:17:44 Neck pain 60402382 M54.2 [id number] SANDY MCPHERSON MD [facility] - [facility] [address] [place] [phone] 02/26/2025 10:47:07 02/26/2025 16:09:40 Dyspnea 953834939 R06.02 Hypoxia 505877905 R09.02 Health Concerns Section Related Observation LastModified by Organization Detai ls LastModified Time None Recorded Concern Status LastModified by Organization Details LastModified Time None Recorded Advance Directives Directive None Recorded Payers Insurance Date Sequence Insurance Name Policy Number Policy Taylor Covered Member ID Taylor Member ID Guarantor Name 02/26/2025 1 [facility] - DOS ON OR AFTER 2023 - DUAL ELIGIBLE - RETIREMENT OPTIONS AND ONE CARE (MEDICARE REPLACEMENT/ADV ANTAGE - HMO) Marita Murray [id number] Marita Murray Notes Date Note Type Note [...] .................... .................... .................... .................... .................... .................... . Bridge Repairer Note From Zaki Vega: Dispatched to the [...] .................... .................... .................... .................... .................... .................... . [facility] Consulted: Mau Flynn .................... .................... .................... .................... .................... .................... .................... . Disposition: Fulfilled MAU FLYNN MD [address] [facility],[address], [place], [address], [facility] 10/07/2024 21:49:34 11/02/2024 text/html CRC Nurse Triage [...] s/s and seek emergency treatment if needed. Bridge Repairer Organization Information for Yamile Cary Business Legal Name: [employer].? Address: [address] [place] [address], Cavalry Officer: Constantin Machado MD NAVEEN No.: [id number] Bridge Repairer POC Test Results from Yamile Cary NAINA Rapid influenza antigen (14:11:38) Flu: - Rapid COVID antigen (14:11:39) COVID: - .................... .................... .................... .................... .................... .................... .................... . Bridge Repairer Note From Yamile Cary: Sent to a [...] Duo neb administered; Lung sounds: clear bialterally; [facility] consulted and orders Prednisone 40mg PO. [facility] sends script to pt's pharmacy. Prednisone 40mg PO administered. Pt advised to use symptomatic treatment as outlined. Red flags discussed. Pt has no further questions. .................... .................... .................... .................... .................... .................... .................... . [facility] Consulted: Sanam Russell .................... .................... .................... .................... .................... .................... .................... . Disposition: Fulfilled Sanam Russell MD [address] [place] [address],[address], [place], [address], [facility] 11/02/2024 16:46:28 01/08/2025 text/html [facility] Nurse Triage [...] emergency treatment if needed. Ronan Fernandez RN Bridge Repairer Organization Information for Pancho Mendez Business Legal Name: [employer]? Address: [address] [place] [address], Cavalry Officer: Constantin Machado MD CLIA No.: [id number] Bridge Repairer POC Test Results from Pancho Mendez Rapid [...] Hb: 12.9 g/dL A mmol/L Cartridge Number: [id number] Attachments uploaded as part of this test result can be found under Documents section. .................... .................... .................... .................... .................... .................... .................... . 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 [facility] obtains vital signs and pt is swabbed [...] Flu A. [facility] contacts [facility] and discusses the above. [facility] requests bmp for tamiflu dosing. IV access [...] the platform. [facility] recontacts [facility] and [facility] orders 75mg Tamiflu PO. [facility] administers one 75mg capsule Tamiflu to pt and instructs her to seek ED care if she cannot get her fever down and keep it down, she develops uncontrollable n/v/d, continues to feel sob w/ cp, or feels like she is going to or does pass out. [facility] also instructs pt to continue taking 1G Tylenol every 8 hours for fever and using her albuterol nebulizer every 4 hours as needed. Pt gives her verbal understanding. [facility] is clear. Report completed by ANTONIO Mendez [id number]. [facility] Lab Orders: rapid flu (A+B): Performed rapid SARS CoV 2 Ag, QL IA, respiratory specimen: Performed [facility] Medication Orders: oseltamivir 75 mg capsule: Administered .................... .................... .................... .................... .................... .................... .................... . [facility] Consulted: Sandy Mcpherson .................... .................... .................... .................... .................... .................... .................... . Disposition: Fulfilled SANDY MCPHERSON MD [address] [place] [address],[address], [place], [address], [facility] 01/08/2025 14:28:06 02/16/2025 text/html [facility] Nurse Triage Notes (Haydee Moran): Reason For [...] is not on a blood thinner / [facility] breast cancer in remission I provided information on the mobile health provider response time and advised the patient and/or caregiver to monitor reported signs and symptoms. I discussed the warning signs of when to seek emergency care. Bridge Repairer Organization Information for Yamile Cary [id number] Legal Name: [employer]? Address: [address] [place] [address], Cavalry Officer: Constantin Machado MD CLIA No.: [id number] Bridge Repairer POC Test Results from Yamile Cary - NAINA Rapid COVID antigen (10:48:16) COVID: - Rapid influenza antigen (10:48:17) Flu: - Rapid strep test (10:48:18) Strep: - .................... .................... .................... .................... .................... .................... .................... . Bridge Repairer Note From Yamile Cary: Sent to a [...] covid/flu test: neg; Rapid strep test: neg; [facility] consulted and pt is advised she should [...] .................... .................... .................... .................... .................... .................... . [facility] Consulted: Elio Oconnell .................... .................... .................... .................... .................... .................... .................... . Disposition: Fulfilled Elio Oconnell MD [address] [facility],[address], [place], [address], [facility] 02/16/2025 12:29:21 02/26/2025 text/html [facility] Nurse Triage Notes (Santosh Mcmanus): Reason For Request: Pt reporting getting out of surgery yesterday morning>notes her symptoms today appear to be related to her oxygen. SOBDenies: Increased work of breathing/labored ? with or without fever Unable to speak in full sentences without distress Discoloration of skin -cyanosis Needs to sleep sitting up, can? t catch breath Shortness of breath in setting of confusion Chief Complaints: Breathing ProblemsPMH: Asthma, Arrhythmias (e.g., Atrial Fibrillation), Cancer, Sleep Apnea, Hypothyroidism, AnemiaPMH Reviewed at 02/26/2025 08:59Allergies Reviewed at 02/26/2025 08:59Comments: 69 y.o female complains of Breathing ProblemsPt calling reporting shoulder surgery yesterday. Pt calling reporting her oxygen level kept dipping to the high 80s when trying to get up at the hospital, states it finally stabilized and she was discharged home around 7pm. Pt reports she has continued trouble breathing since arriving home. Pt states she is getting short of breath with minimal exertion. Pt does have cough since going under anesthesia. Pt reports she does not a pulse oximeter at home. Pt states she has been using her inhaler and nebulizer, which helps for a little bit before it wears off . Pt speaking in full, complete sentences at time of call. Pt states she has to sleep propped up, but states this is due to her surgery on her arm not her breathing. I provided information on the mobile health provider response time and advised the patient and/or caregiver to monitor reported signs and symptoms. I discussed the warning signs of when to seek emergency care -Micaela Mcmanus RN .................... .................... .................... .................... .................... .................... .................... . Bridge Repairer Note From Mino Hinojosa: Encountered patient seated upright and conscious with family present. Patient reports she had a right shoulder repair surgery on 02/25/25 in which her discharge was delayed due to a decrease in oxygen saturation with exertion, post anesthesia. Patient states she has been utilizing her nebulizer machine regularly and only finds moderate temporary relief. Patient denies chest pain and shortness of breath at rest however, states minimal exertion makes it difficult for her to breathe. Patient reports she is not anticoagulated, but does have an existing medical history of atrial fibrillation. Gait test was performed, two laps around patients kitchen yielded an increase in respiratory rate from 18 to 24, and a three-point drop and (room-air) oxygen saturation from 95% to 92% as well as an increase of heart rate from 90 beats per minute to 110, [facility] notified of results. Patient reports she was discharged with a prescription for Dilaudid, but has not taken any. Skin warm, dry and of appropriate color for ethnicity. Head and neck, free of trauma and edema. -JVD. Breath sounds present clear and equal bilaterally. Abdomen is soft non-tender and non-distended. Right upper extremity, unable to be assessed due to heavy bandaging and splint secondary to shoulder surgery. Remainder of extremities, free of trauma and edema, peripheral pulses present in all extremities. [facility] contacted: [facility] states given patient? s recent history of being both intubated and under anesthesia. The patient symptoms could signify a blood clot and recommends patient be transported to the emergency room for further evaluation. Patient verbalizes understanding of the plan and agrees with transport to the hospital. This sheet writer arranged 911 on behalf of patient, care was relinquished to Sheryl crew [id number] with verbal report exchanged, transport to [facility]. .................... .................... .................... .................... .................... .................... .................... . [facility] Consulted: Sandy Mcpherson .................... .................... .................... .................... .................... .................... .................... . Disposition: Fulfilled SANDY MCPHERSON MD [address] [place] [address],[address], [place], [address], [facility] 02/26/2025 12:50:44 OBGyn Episode No OBEpisode recorded.
--- OUTSIDE RECORDS SUMMARY | 2025-03-10 12:11 | XMS_ITS | Clinical Summary ---
Author Organization [facility] Address [address] [address] Phone Care Team Providers Care Faith Healer Name Role Phone Adrianna Sharp MD Primary Care Provider [phone] Allergies Active Allergy Reactions Criticality Noted Date [...] Visit [facility] [address] [facility] [address] [place] [address] Dayanara Marcus ARNP [address] [id number] Health Maintenance Due Date Last Done Comments [...] topic Insurance MCR ([id number]) ([id number]) Care Teams Faith Healer Relationship Specialty Start Date End Date Adrianna Sharp MD [address] [place] [address] [address] [facility] [place] P[facility] - General Internal Medicine 06/25/23
--- OUTSIDE RECORDS SUMMARY | 2025-03-10 12:12 | XMS_ITS | Encounter Summary ---
Author Organization [facility] Address [address] [place] [address] Care Team Providers Care Director Of Testing Name Role Phone Pcp, No Primary Care Provider Unavailabl e Adrianna Sharp MD Primary Care Provider Encounter Details Date Type Department Care Team (Late st Contact Info) Description 04/28/2023 Scanned Document [facility] Emergency Department [address] [place] [address] Provider, Generic Social History Tobacco Use Types [...] documented as of this encounter Care Teams Director Of Testing Relationship Specialty Start Date End Date Pcp, No [address] [place] [address] PCP - General 04/28/23 04/28/23 Adrianna Sharp MD [address] [place] [address] PCP - General Family Medicine 04/29/23 documented as of this encounter
--- OUTSIDE RECORDS SUMMARY | 2025-03-10 12:12 | XMS_ITS | Patient Health Record ---
Author Organization [facility] Address [address] [place] [address] Care Team Providers Care Jukebox Routeman Name Role Phone Adrianna Sharp Primary Care Provider Bin Salinas Unavailable [phone] Reason For Referral No Information Problems Problem Type SNOMED Code ICD Code Onset Dates Problem Status W/U Status Risk Notes Problem Gallstones (426320201) Gallstones (K80.20) Active confirmed Plan Of Treatment No Information Insurance Providers Payer Name Payer Address Payer Phone Subscriber Number Group Number Insured Name Patient Relationship to Insured Coverage Start Date Coverage End Date MEDICARE OF [facility] [address] [place] [address] [id number] ISMAEL JUÁREZ Self - patient is the insured MEDICAID OF [facility] [address] [place] [address] [id number] ISMAEL JUÁREZ Self - patient is the insured MEDICARE OF [place] [address] [place] [address] [id number] ISMAEL JUÁREZ Self - patient is the insured [facility] [address] [place] [phone] [id number] ISMAEL JUÁREZ Self - patient is the insured 3 Medical (General) History Medical History History ICD Code colon and egd 11-30-2009 history of anemia gastric polyp pernicious anemia
--- OUTSIDE RECORDS SUMMARY | 2025-03-10 12:12 | XMS_ITS | Clinical Summary ---
Author Organization [facility] Address [address] [place] [id number] Care Team Providers Care Rail Bender Name Role Phone Adrianna Sharp MD Primary Care Provider [phone] Allergies Active Allergy Reactions Criticality Noted Date [...] in a [facility] (including now)? No 05/25/2023 Comments No Sex [...] this topic Medical Devices Explanted Type Area Technical Manager Chemical Plant Device Identifier Shelf Expiration Date Model / Serial / Lot [id number] Stent Pancreatic 5fr 5cm Pigtail Curve Radopq Push Cath - [id number] Implanted:Qty: 1 on 04/29/2023 by Bryan Chester MD at [facility] Explanted:Qty: 1 on 05/06/2023 by Kristyn Paez MD at [facility] Stent N/A: Bile Duct [employer] [id number] 12/30/2025 [id number] / / [id number] Insurance [employer] [facility] Advance Directives * Full Code (Latest Code Status on File) Date Activated Date Inactivated Comments 05/24/2023 3:08 PM Question Answer Comments Decision Thoroughly Discussed with: Patient * Full Code Date Activated Date Inactivated Comments 04/28/2023 9:15 PM 05/24/2023 2:10 PM Care Teams Rail Bender Relationship Specialty Start Date End Date Adrianna Sharp MD [address] [place] [address] PCP - General Family Medicine 04/29/23
== END 2025-03-10 12:25 | disposition home or self-care (01) ==
LOC: HO.HOS 11:36
PROVIDERS: PCP Internal Medicine; Visit Provider Orthopaedic Surgery
DX: M25.511 Pain in right shoulder (principal)
CPT/HCPCS: 99024

== ENCOUNTER → 2025-03-10 11:36 | Outpatient (BNVA) | payer OTHER, SELFPAY | PROVIDERS: PCP Internal Medicine; Visit Provider Orthopaedic Surgery | DX: Z47.89 Encounter for other orthopedic aftercare (principal); M25.511 Pain in right shoulder; Z98.890 Other specified postprocedural states | CPT/HCPCS: 99212 ==

== ENCOUNTER 2025-03-14 13:46 | Emergency (ER) | payer OTHER, SELFPAY ==
--- NOTE | ~2025-03-14 | XR_ITS ---
CLINICAL HISTORY: pain Radiographs of the right shoulder, 3 views Comparison: CR - XR CHEST 1V - 02/26/25 11:50 EDT CR/SR - XR CHEST 2V - 01/14/25 16:10 EDT CR - XR CHEST 1V - 01/08/25 20:43 EDT MR/SR - MR SHOULDER RT WO CON - 10/22/24 13:40 EST Findings: No fracture or dislocation. Normal acromiohumeral interval, similar to the prior studies. Mild degenerative change. Bone mineralization is normal. No soft tissue swelling. Impression: No acute findings. This document has been electronically signed by: Casandra Brooks MD on 03/14/2025 15:53:47
--- NOTE | ~2025-03-14 | XR_ITS ---
CLINICAL HISTORY: pain Radiographs of the right wrist, 4 views Comparison: None Findings: No fracture or dislocation. Mild degenerative change. Bone mineralization is decreased. Soft tissue swelling. Impression: No fracture. This document has been electronically signed by: Casandra Brooks MD on 03/14/2025 18:50:56
[2025-03-14 14:06] VITALS: BP 194/87; PULSE 71; RESP 19; TEMP 36.6; O2SAT 95; BMI 42.6
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
[2025-03-14 15:44] VITALS: BP 151/65; PULSE 66; RESP 20; TEMP 36.6; O2SAT 97
[2025-03-14] MEDS: Morphine Sulfate Immed Release 15 MG TABLET PO (17:52)
[2025-03-14 19:32] VITALS: BP 151/65; PULSE 66; RESP 20; TEMP 36.6; O2SAT 97
== END 2025-03-14 19:39 | disposition home or self-care (01) ==
PROVIDERS: Emergency Provider Emergency Medicine; PCP Internal Medicine
DX: M25.511 Pain in right shoulder (principal); M79.601 Pain in right arm; Z79.899 Other long term (current) drug therapy
CPT/HCPCS: 73030; 73110; 99283; 99284

== ENCOUNTER → 2025-03-14 14:09 | Outpatient (BNV) | payer OTHER, SELFPAY | PROVIDERS: PCP Internal Medicine; Visit Provider Radiology Diagnostic Radiology | DX: M25.511 Pain in right shoulder (principal); M25.531 Pain in right wrist | CPT/HCPCS: 73030; 73110 ==

== ENCOUNTER 2025-04-04 13:31 | Outpatient (REF) | payer OTHER, SELFPAY ==
--- NOTE | ~2025-04-04 | US_ITS ---
EXAMINATION: US THYROID CLINICAL INFORMATION: Nontoxic single thyroid nodule. COMPARISON: None available. TECHNIQUE: Linear transducer grayscale and color Doppler examination with attention to the region of the thyroid. FINDINGS: SIZE: Measurements of the thyroid lobes and nodules are given in sagittal, anteroposterior and transverse dimensions respectively. Right Thyroid Lobe: 3.4 x 2.2 x 1.1 cm, volume 4.1 mL. Parenchyma: The gland echotexture is normal. Thyroid vascularity is normal. Left Thyroid Lobe: 2.2 x 1.4 x 1.6 cm, volume 2.5 mL. Parenchyma: The gland echotexture is normal. Thyroid vascularity is normal. Isthmus: 0.57 cm in maximum AP dimension. Estimated total number of nodules greater than or equal to 1 cm: None. Structural Design Engineer nodules are described as follows: US/US thyroid IMPRESSION: ACR TI-RADS 0 . No dominant nodules. ACR TI-RADS RECOMMENDATION REFERENCE: Ultrasound-guided fine-needle aspiration, followup ultrasound, no further follow up. * TR1 (0 point) and TR2 (2 points): No FNA or follow up. * TR3 (3 points): FNA if more than or equal to 2.5 cm in maximum dimension, followup ultrasound in 1, 3 and 5 years if 1.5 to 2.4 cm in maximum dimension. * TR4 (4-6 points): FNA if more than or equal to 1.5 cm in maximum dimension, followup ultrasound in 1, 2, 3 and 5 years if 1 to 1.4 cm in maximum dimension. * TR5 (more than or equal to 7 points): FNA if more than or equal to 1 cm in maximum dimension, followup ultrasound every year for 5 years if 0.5 to 0.9 cm in maximum dimension. * TR3, TR4 or TR5 nodules that are below the size threshold for followup receive no follow up. Electronically signed by: Sudheer Alonzo MD 04/04/2025 02:34 PM EDT
--- OUTSIDE RECORDS SUMMARY | 2025-04-04 15:00 | XMS_ITS | Clinical Summary ---
Author Organization [facility] Address [address] [address] Phone Care Team Providers Care Shower Screen Installer Name Role Phone Adrianna Sharp MD Primary Care Provider [phone] Allergies Active Allergy Reactions Criticality Noted Date [...] [facility] [address] [facility] [address] [place] [address] Dayanara Marcus ARNP [address] [id number] Health Maintenance Due Date Last Done Comments [...] topic Insurance MCR ([id number]) ([id number]) Care Teams Shower Screen Installer Relationship Specialty Start Date End Date Adrianna Sharp MD [address] [place] [address] [address] [facility] [place] P[facility] - General Internal Medicine 06/25/23
== END 2025-04-04 13:32 | disposition home or self-care (01) ==
LOC: HO.US 13:31
PROVIDERS: PCP Internal Medicine; Visit Provider Internal Medicine
DX: E04.1 Nontoxic single thyroid nodule (principal)
CPT/HCPCS: 76536

== ENCOUNTER → 2025-04-04 13:33 | Outpatient (BNV) | payer OTHER, SELFPAY | PROVIDERS: PCP Internal Medicine; Visit Provider Radiology Diagnostic Radiology | DX: E04.1 Nontoxic single thyroid nodule (principal) | CPT/HCPCS: 76536 ==

== ENCOUNTER 2025-04-05 17:01 | Outpatient (AMB) | payer OTHER, SELFPAY ==
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
[2025-04-05 17:07] VITALS: BP 146/84; BMI 41.2
--- OUTSIDE RECORDS SUMMARY | 2025-04-05 18:41 | XMS_ITS | Clinical Summary ---
Author Organization [facility] Address [address] [address] Phone Care Team Providers Care Air Crew Supervisor Name Role Phone Adrianna Sharp MD Primary Care Provider [phone] Allergies Active Allergy Reactions Criticality Noted Date [...] Visit [facility] [address] [facility] [address] [place] [address] Dayanara Marcus ARNP [address] [phone] Health Maintenance Due Date Last Done Comments [...] topic Insurance MCR ([id number]) ([id number]) Care Teams Air Crew Supervisor Relationship Specialty Start Date End Date Adrianna Sharp MD [address] [place] [address] [address] [facility] - [facility] 06/25/23
== END 2025-04-05 17:33 | disposition home or self-care (01) ==
LOC: HO.HMCH 17:02
PROVIDERS: PCP Internal Medicine; Visit Provider Internal Medicine
DX: M25.311 Other instability, right shoulder (principal); E78.00 Pure hypercholesterolemia, unspecified; E66.01 Morbid (severe) obesity due to excess calories; Z68.41 Body mass index [BMI] 40.0-44.9, adult; J45.30 Mild persistent asthma, uncomplicated; G47.33 Obstructive sleep apnea (adult) (pediatric); E03.9 Hypothyroidism, unspecified

== ENCOUNTER → 2025-04-05 17:01 | Outpatient (BNVA) | payer OTHER, SELFPAY | PROVIDERS: PCP Internal Medicine; Visit Provider Internal Medicine | DX: M25.311 Other instability, right shoulder (principal); I10 Essential (primary) hypertension; G47.30 Sleep apnea, unspecified; E78.00 Pure hypercholesterolemia, unspecified; J45.30 Mild persistent asthma, uncomplicated; G47.33 Obstructive sleep apnea (adult) (pediatric); E66.01 Morbid (severe) obesity due to excess calories; E03.9 Hypothyroidism, unspecified; Z68.41 Body mass index [BMI] 40.0-44.9, adult; Z98.890 Other specified postprocedural states | CPT/HCPCS: 99212 ==

== ENCOUNTER 2025-04-21 12:59 | Outpatient (AMB) | payer OTHER, SELFPAY ==
--- OUTSIDE RECORDS SUMMARY | 2025-04-21 13:02 | XMS_ITS | Data Portability ---
Author Organization [facility] Address [address] [place] [address] Care Team Providers Care Air Conditioning Supervisor Name Role Phone HIM CCA OTHER AMBROSE [...] to allow for adequate healing. Precautions reviewed. [email or web address] Not available 10/07/2024 21:49:22 01/08/2025 01/08/2025 Ms. [...] OTC medications advised and will continue to alcohol and drug counselor on safe use for tylenol and/or [...] Assessment and Plan as documented by the Fuel Tank Sealer And Tester. We discussed the diagnostic uncertainty of home [...] would benefit from in person evaluation in [facility] ED for consideration of imaging including [...] Primary care, consider neck imaging Disposition: KATEY [email or web address] Not available 02/16/2025 12:28:51 02/26/2025 02/26/2025 Ms. [...] given the procedure done. Signed out to [facility] at 11:25am. I provided real -time medical direction via phone for this encounter, and was available for additional phone based assistance as needed. I have reviewed and agree with the Assessment and Plan as documented by the Fuel Tank Sealer And Tester. We discussed the diagnostic uncertainty of home [...] Ag, QL IA, respiratory specimen [address], [phone] 14:26:53 rapid flu (A+B) [address], [id number] 14:26:08 rapid strep group A, throat [address], [address] 14:28:05 rapid flu (A+B) 2024 025 [email or web address] i7 [facility] [address] [place] [address], [id number] 12:22:27 rapid SARS CoV 2 Ag, QL IA, respiratory specimen [address] - [facility], [address] [place] [address], [id number] 5 12:22:26 rapid flu (A+B) 2024 025 [facility], [address] [place] [address], [address] 14:16:35 rapid SARS CoV 2 Ag, QL IA, respiratory specimen [address] [facility] [address] [place] [address], [address] [place] [address], [id number] 14:16:35 Referral None recorded. Procedures None recorded. Surgeries None recorded. Imaging None recorded. Medication Orders oseltamivir 75 mg capsule [address]/Pharmacy #0373, [address] [place], [address], 12:22:25 Tamiflu 75 mg capsule [address]/Pharmacy #0373, [address] [place], [address], 5 12:22:25 ipratropium 0.5 mg-albutero l 3 mg (2.5 mg base)/3 mL nebulizatio n soln 2024 025 ust1 [facility]/Pharmacy #0373, [address] [place], [address], 5 14:16:35 prednisone 10 mg tablet 2024 025 [facility]0373, [address] [place], [address], 5 14:18:56 prednisone 20 mg tablet 2024 025 [facility], [address] [place], [address], 5 14:18:54 clotrimazol e 1 % topical cream 2023 024 [facility]0373, [address] [place], [address], 20:06:27 Patient TargetsNo targets recorded. Patient InstructionsNo instructions recorded. Reason for Referral None Reported. Results Created Date Observation Date Name Description Value Unit Range Abnormal Flag Note LastModifiedBy Organization Detail LastModifiedTime 01/09/2001/08/2025 rapid SARS CoV 2 Ag, QL IA, respi rator y speci men rapid SARS CoV 2 Ag, QL IA, respiratory specimen negati ve Not Available [facility] ed [address] [place] [address], [id number] 01/08/2025 11:33:21 01/09/2001/08/2025 rapid flu (A+B) Flu positi ve Not Available [facility] ed [address] [place] [address], [id number] 01/08/2025 11:33:21 Result Notes None recorded. Medical Equipment None Reported. Allergies Allergen ID Allergen Name Allergen Category Reaction Reaction Severity Criticality Documentation Date Start Date Code Code System Note Provider Name and Address Organization Details Recorded Time 63342 oxycodone medicatio n Not available Not available Not available 10/07/2024 7804 RxNorm Not Available [facility] - [facility] 4 16:21:18 11630 latex environme nt,medica tion Not available Not available Not available 10/07/2024 57509 91 RxNorm Not Available [facility] - production [...] blood by Pulse oximetry Body temperature Systolic And Diastolic Provider Name and Address Organization Details Last Updated DateTime 5 24668.3 2 g 18 /min 68 /min 147.32 cm 96 % 96 % 98 [degF] 140/85 mm[Hg] Not Available [facility] 5 14:10:41 Date Recorded Oxygen saturation Oxygen saturation in Arterial blood by Pulse oximetry Respiratory rate Body temperature Body weight Body height Heart rate Systolic And Diastolic Provider Name and Address Organization Details Last Updated DateTime 5 90 % 90 % 20 /min 103.5 [degF] 66832.1 36 g 149.86 cm 100 /min 119/75 mm[Hg] Not Available [facility] 5 11:37:03 Date Recorded Body temperature Heart rate Oxygen saturation Oxygen saturation in Arterial blood by Pulse oximetry Body weight Body height Respiratory rate Systolic And Diastolic Provider Name and Address Organization Details Last Updated DateTime 5 98.8 [degF] 72 /min 95 % 95 % 14688.1 36 g 149.86 cm 18 /min 143/85 mm[Hg] Not Available [facility] 5 10:50:27 Date Recorded Heart rate Oxygen saturation Oxygen saturation in Arterial blood by Pulse oximetry Oxygen saturation Oxygen saturation in Arterial blood by Pulse oximetry Respiratory rate Respiratory rate Heart rate Body temperature Systolic And Diastolic Provider Name and Address Organization Details Last Updated DateTime 5 90 /min 96 % 96 % 91 % 91 % 24 /min 18 /min 110 /min 98.2 [degF] 132/86 mm[Hg] Not Available [facility] 5 10:47:10 Date Recorded Oxygen saturation Oxygen saturation in Arterial blood by Pulse oximetry Body temperature Heart rate Respiratory rate Systolic And Diastolic Provider Name and Address Organization Details Last Updated DateTime 4 97 % 97 % 98.1 [degF] 84 /min 18 /min 140/82 mm[Hg] Not Available [facility] 4 20:04:20 Social History None recorded. Functional Status None recorded. Mental Status None recorded. Family History Nothing Reported. Medical History No medical history recorded. Gynecological HistoryNo gynecological history recorded. Obstetrics History GPAL:G 0 P 0 0 0 0 Past Encounters Encounter ID Performer Location Encounter Start Date Encounter Closed Date Diagnosis/Indication Diagnosis SNOMED-CT Code Diagnosis ICD10 Code Diagnosis Note [id number] MAU FLYNN MD Main - [facility] [address] [place] [phone] 10/07/2024 20:04:14 10/07/2024 23:05:27 Tinea corporis 61406578 B35.4 [id number] [facility] [address] [place] [phone] 11/02/2024 14:06:32 11/02/2024 22:25:51 Upper respiratory infection 57932155 J06.9 Evaluation in the field was performed by my computer project manager colleague, as noted above, I provided real-time direction and supervisio n for this visit. 68yo F PMHx asthma p/w 2 weeks URI symptoms including cough, rhinorrhea , and increased wheezing without fevers, chest pain. Improved with inhalers. Reports she usually receives antibiotic s every year for this. Denies hx tobacco use. On computer project manager eval VS sat 96% RA normal RR. [...] shortness of breath, cough, chest pain, fever. [id number] SANDY MCPHERSON MD Main - [facility] [address] [place] [phone] 01/08/2025 11:31:19 01/10/2025 13:55:12 Viral syndrome 329676956 B34.9 [id number] Elio Oconnell MD Main - [facility] [address] [place] [id number] 02/16/2025 10:50:19 02/16/2025 13:17:44 Neck pain 14223775 M54.2 [id number] SANDY MCPHERSON MD Main - [facility] [address] [place] [phone] 02/26/2025 10:47:07 02/26/2025 16:09:40 Dyspnea 631035955 R06.02 Hypoxia 383740404 R09.02 Health Concerns Section Related Observation LastModified by Organization Detai ls LastModified Time None Recorded Concern Status LastModified by Organization Details LastModified Time None Recorded Advance Directives Directive None Recorded Payers Insurance Date Sequence Insurance Name Policy Number Policy Taylor Covered Member ID Taylor Member ID Guarantor Name 02/26/2025 1 [facility] - DOS ON OR AFTER 2023 - DUAL ELIGIBLE - INTERMEDIATE OPTIONS AND ONE CARE (MEDICARE REPLACEMENT/ADV ANTAGE - HMO) Marita Murray [id number] Marita Murray Notes Date Note Type Note [...] .................... .................... .................... .................... .................... .................... . Fuel Tank Sealer And Tester Note From Zaki Vega: Dispatched to the [...] .................... .................... .................... .................... .................... .................... . [facility] Consulted: Mau Flynn .................... .................... .................... .................... .................... .................... .................... . Disposition: Fulfilled MAU FLYNN MD [address] [place] [address],[address], [place], [address], [employer] 10/07/2024 21:49:34 11/02/2024 text/html CRC Nurse Triage [...] s/s and seek emergency treatment if needed. Fuel Tank Sealer And Tester Organization Information for Yamile Cary Business Legal Name: [employer]. Address: [address] [place] [address], Sr. Payroll Processor: Constantin Machado MD IA No.: [id number] Fuel Tank Sealer And Tester POC Test Results from Luis Daniel Yamile CHEW Rapid influenza antigen (14:11:38) Flu: - Rapid COVID antigen (14:11:39) COVID: - .................... .................... .................... .................... .................... .................... .................... . Fuel Tank Sealer And Tester Note From Yamile Cary: Sent to a [...] Duo neb administered; Lung sounds: clear bialterally; [facility] consulted and orders Prednisone 40mg PO. [facility] sends script to pt's pharmacy. Prednisone 40mg PO administered. Pt advised to use symptomatic treatment as outlined. Red flags discussed. Pt has no further questions. .................... .................... .................... .................... .................... .................... .................... . [facility] Consulted: Sanam Russell .................... .................... .................... .................... .................... .................... .................... . Disposition: Fulfilled Sanam Russell MD [address] [place] [address],[address], [place], [address], [employer] 11/02/2024 16:46:28 01/08/2025 text/html CRC Nurse Triage Notes (Eugenia Fernandez): Reason For Request: cough/SOB/fever/naus ea Patient Reports: Cough, fever greater than 2 days ; Lower extremity swelling; History of asthma, increased use of inhaler; Sputum increase ; Cough; Shortness of breath with exertionDenies: Increased work of breathing/labored with or without fever Unable to speak in full sentences without distress Discoloration of skin -cyanosis Needs to sleep sitting up, can t catch breath Shortness of breath in [...] emergency treatment if needed. Ronan Fernandez RN Fuel Tank Sealer And Tester Organization Information for Pancho Mendez Business Legal Name: [employer]. Address: [address] [place] [address], Sr. Payroll Processor: Constantin Machado MD CLIA No.: [id number] Fuel Tank Sealer And Tester POC Test Results from Pancho Mendez Rapid [...] Hb: 12.9 g/dL A mmol/L Cartridge Number: [id number] Attachments uploaded as part of this test result can be found under Documents section. .................... .................... .................... .................... .................... .................... .................... . 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 [facility] obtains vital signs and pt is swabbed for COVID/flu and physically assessed. Lung sounds are rhonchi in the larger airways, but good air movement in the bases. Pt's skin is warm to touch and dry, and she is found to be febrile w/ low SpO2 at 90% RA. SpO2 improves to 93% when she sits up. Pt tests positive for Flu A. [facility] contacts [facility] and discusses the above. [facility] requests bmp for tamiflu dosing. IV access [...] and results are uploaded to the platform. [facility] recontacts [facility] and [facility] orders 75mg Tamiflu PO. [facility] administers one 75mg capsule Tamiflu to pt and instructs her to seek ED care if she cannot get her fever down and keep it down, she develops uncontrollable n/v/d, continues to feel sob w/ cp, or feels like she is going to or does pass out. [facility] also instructs pt to continue taking 1G Tylenol every 8 hours for fever and using her albuterol nebulizer every 4 hours as needed. Pt gives her verbal understanding. [facility] is clear. Report completed by ANTONIO Mendez [id number]. [facility] Lab Orders: rapid flu (A+B): Performed rapid SARS CoV 2 Ag, QL IA, respiratory specimen: Performed [facility] Medication Orders: oseltamivir 75 mg capsule: Administered .................... .................... .................... .................... .................... .................... .................... . [facility] Consulted: Sandy Mcpherson .................... .................... .................... .................... .................... .................... .................... . Disposition: Fulfilled SANDY MCPHERSON MD [address] [place] [address],[address], [place], [address], [employer] 01/08/2025 14:28:06 02/16/2025 text/html CRC Nurse Triage Notes (Haydee Moran): Reason For Request: Patient has a sore Throat and Tongue pain. Patient Reports: History of asthma, increased use of inhaler Denies: Increased work of breathing/labored with or without fever Unable to speak in full sentences without distress Discoloration of skin -cyanosis Needs to sleep sitting up, can t catch breath Shortness of breath in [...] is not on a blood thinner / [facility] breast cancer in remission I provided information on the mobile health provider response time and advised the patient and/or caregiver to monitor reported signs and symptoms. I discussed the warning signs of when to seek emergency care. Fuel Tank Sealer And Tester Organization Information for Yamile Cary Kong [employer]INA Business Legal Name: [employer]. Address: [address] [place] [address], Sr. Payroll Processor: Constantin Machado MD NAVEEN No.: [id number] Fuel Tank Sealer And Tester POC Test Results from Yamile Cary Rapid COVID antigen (10:48:16) COVID: - Rapid influenza antigen (10:48:17) Flu: - Rapid strep test (10:48:18) Strep: - .................... .................... .................... .................... .................... .................... .................... . Fuel Tank Sealer And Tester Note From Yamile Cary: Sent to a [...] covid/flu test: neg; Rapid strep test: neg; [facility] consulted and pt is advised she should [...] .................... .................... .................... .................... .................... .................... . [facility] Consulted: Elio Oconnell .................... .................... .................... .................... .................... .................... .................... . Disposition: Fulfilled Elio Oconnell MD [address] [facility],[address], [place], [address], [employer] 02/16/2025 12:29:21 02/26/2025 text/html CRC Nurse Triage Notes (Santosh Mcmanus): Reason For Request: Pt reporting getting out of surgery yesterday morning>notes her symptoms today appear to be related to her oxygen. SOBDenies: Increased work of breathing/labored with or without fever Unable to speak in full sentences without distress Discoloration of skin -cyanosis Needs to sleep sitting up, can t catch breath Shortness of breath in setting of confusion Chief Complaints: Breathing ProblemsPMH: Asthma, Arrhythmias (e.g., Atrial Fibrillation), Cancer, Sleep Apnea, Hypothyroidism, AnemiaPMH Reviewed at 02/26/2025:59Allergies Reviewed at 02/26/2025:59Comments: 69 y.o female complains of Breathing ProblemsPt [...] .................... .................... .................... .................... .................... .................... . Fuel Tank Sealer And Tester Note From Mino Hinojosa: Encountered patient seated [...] from 90 beats per minute to 110, [facility] notified of results. Patient reports she was [...] edema, peripheral pulses present in all extremities. [facility] contacted: [facility] states given patient s recent history of being both intubated and under anesthesia. The patient symptoms could signify a blood clot and recommends patient be transported to the emergency room for further evaluation. Patient verbalizes understanding of the plan and agrees with transport to the hospital. This conventional mortgage underwriter arranged 911 on behalf of patient, care was relinquished to Sheryl crew [phone] with verbal report exchanged, transport to [place]. .................... .................... .................... .................... .................... .................... .................... . [facility] Consulted: Sandy Mcpherson .................... .................... .................... .................... .................... .................... .................... . Disposition: Fulfilled SANDY MCPHERSON MD [address] [facility],[address] [facility], [place], [address], [employer]ITTANY JACKSON 02/26/2025 12:50:44 OBGyn Episode No OBEpisode recorded.
--- OUTSIDE RECORDS SUMMARY | 2025-04-21 13:02 | XMS_ITS | Clinical Summary ---
Author Organization [facility] Address [address] [place] [address] Care Team Providers Care Community Association Manager Name Role Phone Adrianna Sharp MD Primary Care Provider [phone] Allergies Active Allergy Reactions Criticality Noted Date [...] place to sleep or slept in a retirement (including now)? No 05/25/2023 Comments No Sex [...] 57 06/03/2023 8:23 AM EDT Temperature 36.8 C (98.2 F) 06/03/2023 8:23 AM EDT Respiratory Rate 18 06/03/2023 8:23 AM EDT [...] this topic Medical Devices Explanted Type Area Folding Machine Feeder Device Identifier Shelf Expiration Date Model / Serial / Lot [id number] Stent Pancreatic 5fr 5cm Pigtail Curve Radopq Push Cath - [id number] Implanted:Qty: 1 on 04/29/2023 by Bryan Chester MD at [facility] Explanted:Qty: 1 on 05/06/2023 by Kristyn Paez MD at [facility] Stent N/A: [employer] [id number] 12/30/2025 [id number] / / [id number] Insurance [employer] [facility] Advance Directives * Full Code (Latest Code Status on File) Date Activated Date Inactivated Comments 05/24/2023 3:08 PM Question Answer Comments Decision Thoroughly Discussed with: Patient * Full Code Date Activated Date Inactivated Comments 04/28/2023 9:15 PM 05/24/2023 2:10 PM Care Teams Community Association Manager Relationship Specialty Start Date End Date Adrianna Sharp MD [address] [place] [address] PCP - General Family Medicine 04/29/23
--- OUTSIDE RECORDS SUMMARY | 2025-04-21 13:02 | XMS_ITS | Clinical Summary ---
Author Organization [facility] Address [address] [address] Phone Care Team Providers Care Tile Molder Name Role Phone Adrianna Sharp MD Primary Care Provider [phone] Allergies Active Allergy Reactions Criticality Noted Date [...] [facility] [address] [facility] [address] [place] [address] Dayanara Marcus ARNP [address] [id number] Health Maintenance Due Date Last Done Comments Breast Cancer Screening 1955 Pneumococcal Vaccine: 50+ Ye ars (1 of 2 - PCV) 1972 Colorectal Cancer Screening: Annual FOBT 2002 Colorectal Cancer Screening: Colonoscopy 2002 Colorectal Cancer Screening: Sigmoidoscopy 2002 Influenza Vaccine (#1) 2025 Hepatitis B Vaccine Aged Out No longe r eligible based on patient's age to complete this topic Insurance MCR ([id number]) ([id number]) Care Teams Tile Molder Relationship Specialty Start Date End Date Adrianna Sharp MD [address] [place] [address] [address] [facility] PCP - General Internal Medicine 06/25/23
--- OUTSIDE RECORDS SUMMARY | 2025-04-21 13:02 | XMS_ITS | Patient Health Record ---
Author Organization [facility] Address [address] [place] [address] Care Team Providers Care Oceanographer Physical Name Role Phone Adrianna Sharp Primary Care Provider Bin Salinas Unavailable [phone] Reason For Referral No Information Problems Problem Type SNOMED Code ICD Code Onset Dates Problem Status W/U Status Risk Notes Problem Gallstones (407872818) Gallstones (K80.20) Active confirmed Plan Of Treatment No Information Insurance Providers Payer Name Payer Address Payer Phone Subscriber Number Group Number Insured Name Patient Relationship to Insured Coverage Start Date Coverage End Date MEDICARE OF [facility] [address] [place] [address] [id number] ISMAEL JUÁREZ Self - patient is the insured MEDICAID OF [facility] [address] [place] [address] [id number] ISMAEL JUÁREZ Self - patient is the insured MEDICARE OF [place] [address] [place] [address] [id number] ISMAEL JUÁREZ Self - patient is the insured [facility] [address] [place] [phone] [id number] ISMAEL JURÁEZ Self - patient is the insured 3 Medical (General) History Medical History History ICD Code colon and egd 11-30-2009 history of anemia gastric polyp pernicious anemia
--- OUTSIDE RECORDS SUMMARY | 2025-04-21 13:03 | XMS_ITS ---
Author Name [facility] Organization Unknown Encounters Encounter Type Encounter Reason Primary Diagnosis Location Date Ambulatory [facility] 10/17/2023 [facility] 10/17/2023 Inpatient Abscess of liver Abscess of liver [facility] 05/24/2023 Inpatient Acute gastric ul cer without hemorrhage or perforation [facility] 04/28/2023 Emergency abdomina; pain [facility] 04/28/2023 Ambulatory [facility] 04/28/2023 [facility] 04/28/2023 [facility] 04/28/2023 Care Team Organization Name Specialty Phone Email Start Date End Da te [facility] AMBROSE KELLER Primary Care 05/24/20232024 [facility] 04/29/2023 01/05/2025 [facility] AMBR[facility] CADENA Primary Care 04/28/20232022 [facility] NO PCP Primary Care 04/28/2023 04/29/2023 [facility] 04/28/2023 04/28/2023
[2025-04-21 13:06] VITALS: BMI 41.2
--- NOTE | 2025-04-21 13:06 | MHC.OFFVIS ---
Vital Signs 04/21/25 13:06 Height 4 ft 11 in Weight 204 lb BMI 41.2 Intake Visit Reasons: PO RT Shld 02/25/25 Intake Note: Marita is a 69 year old female who presents today post-operatively after undergoing a right shoulder arthroscopy on 02/25/25. The patient reports continued moderate discomfort in her right shoulder. She has not yet been to formal physical therapy. She is no longer taking narcotics for discomfort. She denies any fevers or chills. Allergies latex (LATEX) Allergy (Intermediate, Verified 04/21/25 13:10) RASH oxycodone Adverse Reaction (Severe, Verified 04/21/25 13:10) Itching Medication List - Last Reconciled 04/21/25 by Maciej Tran MD Advair HFA 230-21 mcg/actuation (fluticasone propion-salmeterol) 2 puffs inhalation Q12H NS albuterol sulfate 90 mcg/actuation (Proair Digihaler) 2 inhalations inhalation Q4H PRN albuterol sulfate 2.5 mg (3 mL) inhalation Q6H PRN 30 days albuterol sulfate 90 mcg/actuation (Ventolin HFA) 2 puffs inhalation QID atorvastatin 20 mg PO DAILY 90 days buspirone 10 mg PO TID 30 days cholecalciferol (vitamin D3) 50 mcg PO DAILY 90 days commode As directed CPAP (CPAP Machine/Device) autoPAP 6-16 cmH2O cyanocobalamin (vitamin B-12) (Vitamin B-12) 1,000 mcg PO DAILY escitalopram oxalate 20 mg PO BEDTIME 90 days furosemide 40 mg PO DAILY levothyroxine 50 mcg PO DAILY 90 days lorazepam 0.5 mg PO DAILY PRN metoprolol succinate ER 25 mg PO DAILY 90 days [facility] GRAB BAR 18 [facility] toilet safety frame morphine 15 mg PO Q8H PRN 15 days nebulizers (AeroEclipse II Nebulizer) As directed nystatin 1 appl topical BID PRN 2 weeks ondansetron 8 mg PO Q8H PRN 7 days oxycodone-acetaminophen 7.5-325 mg 1 tab PO Q8H PRN 30 days [showerhead As directed] emmett (Ultra-Light Rollator mis) As directed zinc acetate (Galzin) 50 mg PO DAILY PFSH Medical History Right shoulder pain Influenza A Bacterial pneumonia Vitamin D deficiency Zinc deficiency Family history of lupus anticoagulant disorder Severe major 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 psychotic features DORA on CPAP Acute hypoxemic respiratory failure Right lower lobe pneumonia CKD (chronic kidney disease) stage 3, GFR 30-59 ml/min Acute pancreatitis Anemia Morbid obesity Elevated TSH Murmur Moderate persistent asthma B12 deficiency Hair loss Dyslipidemia Lumbar degenerative disc disease History of vitamin D deficiency Arthritis History of left bundle branch block (LBBB) Breast cancer Mild aortic stenosis Tinnitus Chronic pain HTN (hypertension) Surgical History Hx of hand surgery History of cholecystectomy History of cardiac cath Hx of bilateral cataract extraction History of total right knee replacement (TKR) History of total left knee replacement (TKR) History of dilation and curettage Hx of colonoscopy Hx of esophagogastroduodenoscopy History of lymph node dissection of left axilla S/P lumpectomy, left breast Family History Father Prostate cancer Hypertension Mother Skin cancer Dementia Diabetes Daughter Lupus Maternal Grandmother Diabetes Hypertension Maternal Grandfather No problems noted. Paternal Grandmother No problems noted. Paternal Grandfather Cancer Brother Prostate cancer Social History Household Members: Spouse and Family Household Members Other:: Graddaughter Housing: House Do you presently have visiting nurse or other home services: Yes Alcohol intake: never Patient Tobacco Use Status: Never used Tobacco e-Cigarette/Vaping Use: Never Used Second Hand Smoke Exposure: No Substance Use Type: Marijuana Advance Directives Date on File: 08/05/22 service: No Current occupational status: disabled Cognitive needs: Yes (Cane) Hearing needs: No Vision needs: Yes (Glasses) Physical Exam Vital Signs: BMI result Body Mass Index 41.2 Extrem Other: Right shoulder examination shows that the surgical incisions are well healed, no erythema, mild to moderate discomfort with range of motion, decreased range of motion when compared to her left shoulder, no instability Assessment & Plan Assessment & Plan (1) Right shoulder pain: Code(s): M25.511 - Pain in right shoulder Category: Medical Plan Ms. Murray continues to do fairly well after undergoing right shoulder arthroscopic surgery on 02/25/2025. I did give her a prescription to go to formal physical therapy here at [facility]. The do's and don'ts of lifting were discussed at length with the patient. She will contact me prior to her follow-up appointment in 2 months should any questions or concerns arise. Feel free to call me at any time should questions regarding her orthopedic management arise. Orders: Orders PT Evaluation and Treatment Today M25.511 - Pain in right shoulder Coding Level of Care Code Global (49440) Diagnoses Right shoulder pain M25.511
== END 2025-04-21 13:27 | disposition home or self-care (01) ==
LOC: HO.HOS 13:00
PROVIDERS: PCP Internal Medicine; Visit Provider Orthopaedic Surgery
DX: M25.511 Pain in right shoulder (principal)
CPT/HCPCS: 99024

== ENCOUNTER → 2025-04-21 12:59 | Outpatient (BNVA) | payer OTHER, SELFPAY | PROVIDERS: PCP Internal Medicine; Visit Provider Orthopaedic Surgery | DX: M25.511 Pain in right shoulder (principal); Z98.890 Other specified postprocedural states | CPT/HCPCS: 99212 ==

== ENCOUNTER → 2025-06-10 10:35 | Outpatient (REF) | payer OTHER, SELFPAY ==
--- OUTSIDE RECORDS SUMMARY | 2025-06-10 10:39 | XMS_ITS | Clinical Summary ---
Author Organization [facility] Address [address] [place] [address] Care Team Providers Care Intelligence Officer Basic Name Role Phone Adrianna Sharp MD Primary Care Provider [phone] Allergies Active Allergy Reactions Criticality Noted Date [...] place to sleep or slept in a [place] health care facility (including now)? No 05/25/2023 Comments No Sex [...] this topic Medical Devices Explanted Type Area Bookmobile Driver Device Identifier Shelf Expiration Date Model / Serial / Lot [id number] Stent Pancreatic 5fr 5cm Pigtail Curve Radopq Push Cath - [id number] Implanted:Qty: 1 on 04/29/2023 by Bryan Chester MD at [facility] Explanted:Qty: 1 on 05/06/2023 by Kristyn Paez MD at [facility] Stent N/A: Bile Duct [employer] [id number] 12/30/2025 [id number] / / [id number] Insurance [employer] [facility] [facility] Advance Directives * Full Code (Latest Code Status on File) Date Activated Date Inactivated Comments 05/24/2023 3:08 PM Question Answer Comments Decision Thoroughly Discussed with: Patient * Full Code Date Activated Date Inactivated Comments 04/28/2023 9:15 PM 05/24/2023 2:10 PM Care Teams Intelligence Officer Basic Relationship Specialty Start Date End Date Adrianna Sharp MD [address] [place] [address] PCP - General Family Medicine 04/29/23
--- OUTSIDE RECORDS SUMMARY | 2025-06-10 10:39 | XMS_ITS | Clinical Summary ---
Author Organization [facility] Address [address] [address] Phone Care Team Providers Care Winemaker Name Role Phone Adrianna Sharp MD Primary Care Provider [phone] Allergies Active Allergy Reactions Criticality Noted Date [...] Visit [facility] [address] [facility] [address] [place] [address] Dayanara Marcus ARNP [address] [id number] Health Maintenance Due Date Last Done Comments [...] topic Insurance MCR ([id number]) ([id number]) Care Teams Winemaker Relationship Specialty Start Date End Date Adrianna Sharp MD [address] [place] [address] [address] [facility] [place] PCP - General Internal Medicine 06/25/23
--- OUTSIDE RECORDS SUMMARY | 2025-06-10 10:39 | XMS_ITS | Patient Health Record ---
Author Organization [facility] Address [address] [place] [address] Care Team Providers Care Senior Quality Methods Specialist Name Role Phone Adrianna Sharp Primary Care Provider Bin Salinas Unavailable [phone] Reason For Referral No Information Problems Problem Type SNOMED Code ICD Code Onset Dates Problem Status W/U Status Risk Notes Problem Gallstones (422593131) Gallstones (K80.20) Active confirmed Plan Of Treatment No Information Insurance Providers Payer Name Payer Address Payer Phone Subscriber Number Group Number Insured Name Patient Relationship to Insured Coverage Start Date Coverage End Date MEDICARE OF [facility] [address] [place] [address] [id number] ISMAEL JUÁREZ Self - patient is the insured MEDICAID OF [facility] [address] [place] [address] [id number] ISMAEL JUÁREZ Self - patient is the insured MEDICARE OF [place] [address] [place] [address] [id number] ISMAEL JUÁREZ Self - patient is the insured [facility] [address] [place] [phone] [id number] ISMAEL JUÁREZ Self - patient is the insured 3 Medical (General) History Medical History History ICD Code colon and egd 11-30-2009 history of anemia gastric polyp pernicious anemia
--- NOTE | 2025-06-10 10:50 | CA_ITS ---
Transthoracic Echocardiogram Patient (Last, First, Middle): Marita uMrray R Gender: F Date of : 1955 Age: 69 Procedure Date: 06/10/2025 Procedure Type: Transthoracic Echocardiogram Location: OP Height: 147.32 cm Weight: 94.8 kg BSA: 1.86 m2 Heart Rate: bpm BP: 118 / 78 mmHg [employer]: TO Referring MD: Ana Benites DENTAL OFFICE RECEPTIONIST-C [employer] Art Teacher: Prabhakar Segura MD Symptoms: I44.7 - Left bundle-branch block, unspecified Study Quality: Fair/Contrast ECG Rhythm: Sinus Conclusions: - Moderately reduced LV ejection fraction of 35-40% Findings Procedure Information Contrast agent, definity, is being given per protocol without apparent complications. Left Ventricle Normal left ventricular cavity size. There is normal left ventricular wall thickness. The left ventricular systolic function is moderately decreased. The visually estimated ejection fraction is between 35-40%. There is moderate global hypokinesis. There is paradoxical septal motion consistent with a left bundle branch block. Spectral Doppler is indicative of an impaired relaxation filling pattern. E/E prime ratio is between 8 and 15 consistent with indeterminate filling pressures. Prior Study Comparison Changes noted compared to prior study dated: 11/17/2024. LV systolic function is further reduced Measurements 2D Linear Measurements IVSd: 1.05 0.6-0.9/0.6-1.0 cm LVIDd: 4.90 3.9-5.3/4.2-5.9 cm LVIDd Index: 2.63 2.4-3.2/2.2-3.1 cm/m2 LVIDs: 3.75 2.0-3.6 cm LVPWd: 0.91 0.7-1.1 cm LV Mass: 213.09 67-162/88-224 g LV Mass Index: 114.57 43-95/49-115 g/m2 LVOT Diam: 2.00 3.0+(-)1.3 cm 2D Systolic Function EF 4C: 39.40 >55% EF 2C: 38.10 >55% EF BiP: 38.60 >55% Mitral Valve MV Pk E: 0.71 MV PK A: 1.02 MV Decel Time: 285.00 E/A: 0.70 E'Lateral: 5.33 E'Medial: 3.26 E/E' Med: 21.80 E/E' Lat: 13.30 PHT: 84.00 MVA PHT: 2.62 Decel [place]: 2.49 LVOT LVOT Pk Erick: 1.02 LVOT Mn Erick: 0.71 LVOT VTI: 0.22 LVOT Pk Grad: 4.00 LVOT Mn Grad: 2.00 LVOT Diam: 2.00 LVOT Area: 3.14 Diastolic Function MV Pk E: 0.71 MV Pk A: 1.02 E/A: 0.70 E'Medial: 3.26 E/E' Med: 21.80 E' Laterial: 5.33 E/E' Lat: 13.30 Tricuspid Valve RA Press: 3.00 Updated in Other Vendor System with Status of Final Prabhakar Segura MD electronically signed on 06/11/2025 11:56:41 AM with status of Final
== END ==
LOC: HO.CARD 10:35
PROVIDERS: PCP Internal Medicine; Visit Provider Nurse Practitioner Family
DX: I44.7 Left bundle-branch block, unspecified (principal)
CPT/HCPCS: 93308; Q9957

== ENCOUNTER → 2025-06-10 10:50 | Outpatient (BNV) | payer OTHER, SELFPAY | PROVIDERS: PCP Internal Medicine; Visit Provider Internal Medicine Cardiovascular Disease | DX: I42.8 Other cardiomyopathies (principal); I44.7 Left bundle-branch block, unspecified | CPT/HCPCS: 93308; 93321 ==

== ENCOUNTER 2025-06-27 12:10 | Outpatient (REF) | payer OTHER, SELFPAY ==
[2025-06-27 12:32] LABS: MANUAL DIFF FLAG NO
[2025-06-27 12:46] LABS: Hematocrit 41.1 % (37.0-47.0); Hemoglobin 13.0 g/dl (12.0-16.0); Imm Gran Abs Auto 0.01 X10*3/uL (0.00-0.03); Imm Gran Pct Auto 0.2 % (0.0-0.4); Lymphocytes Absolute Auto 2.0 X10*3/uL (1.2-4.9); Mean Corpuscular HGB Conc 31.6 g/dl (31.0-35.0); Mean Corpuscular Hemoglobin 24.3 pg (27.0-33.0); Mean Corpuscular Volume 76.8 fL (80.0-98.0); NRBC Abs Auto 0.000 X10*3/uL (0.0-0.012); NRBC Pct Auto 0.0 /100WBC (0.0-0.2); Platelet Count 142 X10*3/uL (160-400); Red Blood Count 5.35 X10*6/uL (4.20-5.50); White Blood Count 5.7 X10*3/uL (4.8-10.8)
[2025-06-27 13:41] LABS: Alanine Aminotransferase 25 U/L (0-31); Albumin Level 4.6 g/dL (3.5-5.0); Alkaline Phosphatase 102 U/L (39-117); Anion Gap 13 (12-20); Aspartate Amino Transferase 41 U/L (5-31); Blood Urea Nitrogen 13 mg/dL (9-16); Calcium 9.8 mg/dL (8.4-10.2); Carbon Dioxide 27 mmol/L (22-29); Chloride 108 mmol/L (96-108); Cholesterol 225 mg/dL (<200); Estimated Glomerular Filt Rate > 60; HDL Cholesterol 70 mg/dL (>40); Potassium 3.8 mmol/L (3.3-5.1); Sodium 144 mmol/L (135-145); Total Protein 7.8 g/dL (6.5-8.0); Triglycerides 233 mg/dL (<150)
[2025-06-27 14:01] LABS: Thyroid Stimulating Hormone 7.31 uIU/mL (0.32-4.0)
[2025-06-27 14:13] LABS: Folate 13.7 ng/mL (> or = 4.0); Vitamin B12 356 pg/mL (200-900)
--- OUTSIDE RECORDS SUMMARY | 2025-06-27 14:36 | XMS_ITS | Clinical Summary ---
Author Organization [facility] Address [address] [address] Phone Care Team Providers Care Local Coordinator Name Role Phone Adrianna Sharp MD Primary Care Provider [phone] Allergies Active Allergy Reactions Criticality Noted Date [...] [facility] [address] [facility] [address] [place] [address] Dayanara Marcus ARNP [address] [phone] Health Maintenance Due Date Last Done Comments [...] topic Insurance MCR ([id number]) ([id number]) Care Teams Local Coordinator Relationship Specialty Start Date End Date Adrianna Sharp MD [address] [place] [address] [address] [facility] [place] PCP - General Internal Medicine 06/25/23
--- OUTSIDE RECORDS SUMMARY | 2025-06-27 14:37 | XMS_ITS | Clinical Summary ---
Author Organization [facility] Address [address] [place] [address] Care Team Providers Care Item Processor Name Role Phone Adrianna Sharp MD Primary Care Provider [phone] Allergies Active Allergy Reactions Criticality Noted Date [...] in a care home (including now)? No 05/25/2023 Comments No Sex [...] Health Maintenance Due Date Last Done Comments Advance Care Planning 1955 Hepatitis C Virus Screening 1955 DTaP/Tdap/Td Vaccines [...] this topic Medical Devices Explanted Type Area Soda Dry House Operator Device Identifier Shelf Expiration Date Model / Serial / Lot [id number] Stent Pancreatic 5fr 5cm Pigtail Curve Radopq Push Cath - [id number] Implanted:Qty: 1 on 04/29/2023 by Bryan Chester MD at [facility] Explanted:Qty: 1 on 05/06/2023 by Kristyn Paez MD at [facility] Stent N/A: Bile Duct [employer] [id number] 12/30/2025 [id number] / / [id number] Insurance [employer] [facility] [facility] [place] [facility] Advance Directives * Full Code (Latest Code Status on File) Date Activated Date Inactivated Comments 05/24/2023 3:08 PM Question Answer Comments Decision Thoroughly Discussed with: Patient * Full Code Date Activated Date Inactivated Comments 04/28/2023 9:15 PM 05/24/2023 2:10 PM Care Teams Item Processor Relationship Specialty Start Date End Date Adrianna Sharp MD [address] [place] [address] PCP - General Family Medicine 04/29/23
--- OUTSIDE RECORDS SUMMARY | 2025-06-27 14:37 | XMS_ITS | Encounter Summary ---
Author Organization [facility] Address [address] [place] [address] Care Team Providers Care Associate Entertainment Editor Name Role Phone Pcp, No Primary Care Provider Unavailabl e Adrianna Sharp MD Primary Care Provider [phone] Encounter Details Date Type Department Care Team (Late st Contact Info) Description 04/28/2023 Scanned Document [facility] Emergency Department [address] [place] [address] Provider, Generic Social History Tobacco Use Types [...] in a correction (including now)? No 04/29/2023 Comments Unknown Sex [...] documented as of this encounter Care Teams Associate Entertainment Editor Relationship Specialty Start Date End Date Pcp, No [address] [place] [address] PCP - General 04/28/23 04/28/23 Adrianna Sharp MD [address] [place] [address] PCP - General Family Medicine 04/29/23 documented as of this encounter
--- OUTSIDE RECORDS SUMMARY | 2025-06-27 14:37 | XMS_ITS | Patient Health Record ---
Author Organization [facility] Address [address] [place] [address] Care Team Providers Care Brake Shoe Rebuilder Name Role Phone Adrianna Sharp Primary Care Provider Bin Salinas Unavailable [phone] Reason For Referral No Information Problems Problem Type SNOMED Code ICD Code Onset Dates Problem Status W/U Status Risk Notes Problem Gallstones (431016687) Gallstones (K80.20) Active confirmed Plan Of Treatment No Information Insurance Providers Payer Name Payer Address Payer Phone Subscriber Number Group Number Insured Name Patient Relationship to Insured Coverage Start Date Coverage End Date MEDICARE OF [facility] [address] [place] [address] [id number] ISMAEL JUÁREZ Self - patient is the insured MEDICAID OF [facility] [address] [place] [address] [id number] ISMAEL JUÁREZ Self - patient is the insured MEDICARE OF [place] [address] [place] [address] [id number] ISMAEL JUÁREZ Self - patient is the insured [facility] [address] [place] [id number] [phone] [id number] ISMAEL JUÁREZ Self - patient is the insured 3 Medical (General) History Medical History History ICD Code colon and egd 11-30-2009 history of anemia gastric polyp pernicious anemia
== END 2025-06-27 12:11 | disposition home or self-care (01) ==
LOC: HO.LAB 12:10
PROVIDERS: PCP Internal Medicine; Visit Provider Nurse Practitioner Family
DX: E53.8 Deficiency of other specified B group vitamins (principal); I42.9 Cardiomyopathy, unspecified; E78.5 Hyperlipidemia, unspecified; M25.811 Other specified joint disorders, right shoulder; E55.9 Vitamin D deficiency, unspecified; E03.9 Hypothyroidism, unspecified
CPT/HCPCS: 36415; 80048; 80053; 80061; 82306; 82607; 82746; 84100; 84443; 85025

== ENCOUNTER 2025-06-30 13:22 | Outpatient (RCR) | payer OTHER, SELFPAY ==
--- NOTE | 2025-05-30 18:16 | MHC.PT.EP ---
[facility] [place] [facility] [place] [facility] [place] Office [address] Flor Palacios [address] [phone] F: [phone] F: [phone] F: [phone] F: [phone] Physical Therapy Plan of Care Date of Evaluation: 05/30/25 Date of Surgery: 02/25/25 Diagnosis: pain in right shoulder (RL) post-op biceps tenotomy, anterior capsular release, SAD, DCE 02/25/25 Assessment: pt is a 69 y/o female presenting to physical therapy w/ referring diagnosis of pain in right shoulder. pt underwent arthroscopic shoulder surgery on 02/25/25. Impairments include pain, decreased range of motion, decreased strength, impaired functional mobility, impaired postural awareness, and altered ambulation mechanics. pt is a fair candidate for skilled PT due to age, potential remediation of impairments, typical disease/condition progression and prognosis, comorbidities, and motivation. pt would benefit from skilled PT intervention to provide a tailored strengthening and stretching exercise program, functional training, gait training, postural re-training, neuromuscular re-education, modalities as needed for pain, equipment safety demonstration. Frequency and Duration: The patient will be seen 2x/wk for 5 wks Short Term Goals: pt will be I w/ HEP to promote self-management of condition. pt will improve B shoulder flexion by at least 15* to promote ease in overhead reaching. Skilled Nursing Goals: pt will improve R shoulder ER to at least occiput to promote ease in upper body ADLs. pt will report a statistically significant improvement in self-reported outcome measure, SPADI, to promote return to PLOF. Treatment Plan: Modalities to reduce pain, spasms and effusion. Manual therapy to restore motion and function. Therapeutic exercise to improve strength and flexibility. Neuromuscular re-education for posture and balance. Therapeutic activities to return to functional activities of daily living. Electronically signed by: Racheal Bar PT, DPT Please sign and return to therapist. Thank you for your referral.
--- NOTE | 2025-08-22 16:16 | MHC.PT.DC ---
[facility] [place] Office [place] Office [place] Office [address] [place] [address] [facility] [phone] F: [phone] F: [phone] F: [phone] F: [phone] Physical Therapy Discharge Report Diagnosis: pain in right shoulder (RL) post-op biceps tenotomy, anterior capsular release, SAD, DCE 02/25/25 Date of Surgery: 02/25/25 Date of Evaluation: 05/30/25 Date of Discharge: 08/22/25 Treatments to Date: 7 Cancellations to Date: 5 No Shows to Date: 1 Discharge Status: Visit Non-compliance Discharge Summary: The patient cancelled and no showed her last few appointments. She was just starting to respond to the use of heat, soft tissue work and gentle shoulder stretching/active range. Unfortunately, she has failed to schedule any additional follow-ups and is discharged at this time. Electronically signed by: Racheal Bar PT, DPT Please sign and return to therapist. Thank you for your referral.
== END 2025-08-22 16:16 | disposition home or self-care (01) ==
LOC: HO.PT 13:22
PROVIDERS: PCP Internal Medicine; Visit Provider Orthopaedic Surgery
DX: M25.511 Pain in right shoulder (principal)
CPT/HCPCS: 97110; 97140; 97162

== ENCOUNTER 2025-07-08 10:01 | Outpatient (AMB) | payer OTHER, SELFPAY ==
--- NOTE | 2025-07-08 10:08 | A.OFFVIS_ITS ---
Vital Signs 07/08/25 10:11 Height 4 ft 11 in Weight 206 lb 12.697 oz BMI 41.8 BP 130/72 Blood Pressure Location Rt brachial Position Sitting Pulse 68 Pulse Source Pulse Oximeter Intake Visit Reasons: echo result pt has questions Intake Note: f/up- echo results/ questions Library Media Specialist Required: No Accompanied by: Daughter Allergies latex (LATEX) Allergy (Intermediate, Verified 04/21/25 13:10) RASH oxycodone Adverse Reaction (Severe, Verified 04/21/25 13:10) Itching Medication List - Last Reconciled 07/08/25 by Ana Benites SWIMMING POOL SALESPERSON-C Advair HFA 230-21 mcg/actuation (fluticasone propion-salmeterol) 2 puffs inhalation Q12H NS albuterol sulfate 90 mcg/actuation (Proair Digihaler) 2 inhalations inhalation Q4H PRN albuterol sulfate 2.5 mg (3 mL) inhalation Q6H PRN 30 days albuterol sulfate 90 mcg/actuation (Ventolin HFA) 2 puffs inhalation QID atorvastatin 20 mg PO DAILY 90 days buspirone 10 mg PO TID 30 days cholecalciferol (vitamin D3) 50 mcg PO DAILY 90 days commode As directed CPAP (CPAP Machine/Device) autoPAP 6-16 cmH2O cyanocobalamin (vitamin B-12) (Vitamin B-12) 1,000 mcg PO DAILY escitalopram oxalate 20 mg PO BEDTIME 90 days furosemide 40 mg PO DAILY levothyroxine 50 mcg PO DAILY 90 days lorazepam 0.5 mg PO DAILY PRN 1 day metoprolol succinate ER 25 mg PO DAILY 90 days Onovativecellaneous medical supply GRAB BAR 18 [employer] medical supply toilet safety frame morphine 15 mg PO Q8H PRN 15 days nebulizers (AeroEclipse II Nebulizer) As directed nystatin 1 appl topical BID PRN 2 weeks ondansetron 8 mg PO Q8H PRN 7 days oxycodone-acetaminophen 7.5-325 mg 1 tab PO Q8H PRN 30 days sacubitril-valsartan 24-26 mg (Entresto) 1 tab PO BID [showerhead As directed] walker (Ultra-Light Rollator misc) As directed zinc acetate (Galzin) 50 mg PO DAILY HPI HPI echo result pt has questions: Details: Marita is a 69-year-old female with past medical history of HTN, HLD, morbid obesity, obstructive sleep apnea currently untreated, aortic stenosis, left bundle branch block, cardiac catheterization with minimal CAD who now presents for follow-up after recent echo. Today she reports she has been feeling well overall but is concerned about her echo results. She denies having any chest discomfort at rest or with activity. She does have some shortness of breath with activity which is not a new symptom for her. No shortness of breath at rest, PND, edema. She sleeps with 1 large pillow. She has CPAP but does not wear it since it is uncomfortable. No heart palpitations, lightheadedness, presyncope, syncope, falls. She does normal ADLs. Takes meds as directed. Granddaughter is present. [facility] Medical History Right shoulder pain Influenza A Bacterial pneumonia Vitamin D deficiency Zinc deficiency Family history of lupus anticoagulant disorder Severe major 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 psychotic features DORA on CPAP Acute hypoxemic respiratory failure Right lower lobe pneumonia CKD (chronic kidney disease) stage 3, GFR 30-59 ml/min Acute pancreatitis Anemia Morbid obesity Elevated TSH Murmur Moderate persistent asthma B12 deficiency Hair loss Dyslipidemia Lumbar degenerative disc disease History of vitamin D deficiency Arthritis History of left bundle branch block (LBBB) Breast cancer Mild aortic stenosis Tinnitus Chronic pain HTN (hypertension) Surgical History Hx of hand surgery History of cholecystectomy History of cardiac cath Hx of bilateral cataract extraction History of total right knee replacement (TKR) History of total left knee replacement (TKR) History of dilation and curettage Hx of colonoscopy Hx of esophagogastroduodenoscopy History of lymph node dissection of left axilla S/P lumpectomy, left breast Family History Father Prostate cancer Hypertension Mother Skin cancer Dementia Diabetes Daughter Lupus Maternal Grandmother Diabetes Hypertension Maternal Grandfather No problems noted. Paternal Grandmother No problems noted. Paternal Grandfather Cancer Brother Prostate cancer Social History Household Members: Spouse and Family Household Members Other:: Graddaughter Housing: House Do you presently have visiting nurse or other home services: Yes Alcohol intake: never Patient Tobacco Use Status: Never used Tobacco e-Cigarette/Vaping Use: Never Used Second Hand Smoke Exposure: No Substance Use Type: Marijuana Advance Directives Date on File: 08/05/22 service: No Current occupational status: disabled Cognitive needs: Yes (Cane) Hearing needs: No Vision needs: Yes (Glasses) Review of Systems Const All systems reviewed & are unremarkable except as noted in HPI and below Denies chills, Denies fatigue, Denies fever(s), Denies frequent falls, Denies we akness, Denies weight gain and Denies weight loss ENT Denies dizziness Card Denies chest pain, Denies leg edema, Denies lightheadedness, Denies palpit ations, Denies dyspnea and Denies dyspnea on exertion Resp Denies cough, Denies dyspnea and Denies dyspnea on exertion GI Denies hematochezia Musc Denies abnormal gait, Denies muscle weakness, Denies numbness, Denies radiating pain into limb and Denies tingling Neuro Denies abnormal gait, Denies dizziness, Denies frequent falls, Denies numbness, Denies tingling and Denies weakness Endo Denies fatigue and Denies palpitations Physical Exam Vital Signs: Last Vital Signs Pulse 68 07/08/25 10:11 BP 130/72 07/08/25 10:11 BMI result Body Mass Index 41.8 Const General: cooperative, healthy appearing, comfortable and no acute distress Orientation/consciousness: patient oriented x3 Neck Neck: Yes normal visual inspection Resp Effort & Inspection: normal respiratory effort Auscultation: clear to auscultation bilaterally, no crackles, no rales, no rhonchi and no wheezes Cardio Jugular venous distension: no JVD Rate: regular rate Rhythm: regular rhythm Heart sounds: S1 normal heart sound present, S2 normal heart sound present, no murmurs and no rubs Peripheral pulses: Peripheral pulses 2+ throughout Neuro General: patient oriented x3 Extrem General: Yes normal to inspection and No no pedal edema Psych Appearance: grossly normal Mental Status: mental status grossly normal Speech and movement: Normal speech and movement present Assessment & Plan Assessment & Plan (1) Cardiomyopathy: Code(s): I42.9 - Cardiomyopathy, unspecified Category: Medical Plan: Newer finding of nonischemic cardiomyopathy. Echocardiogram from 09/02/2023 showed EF 58%. A repeat echocardiogram 11/17/2024 showed EF 48%, paradoxical motion consistent with left bundle branch block. EKGs did show left bundle branch block. She underwent cardiac catheterization 12/19/2022 showing LAD and RCA with minimal luminal irregularities. She was on metoprolol XL. A repeat limited echocardiogram done 06/10/2025 shows EF 35-40%. Entresto recently started. Labs 06/27/2025 show potassium 3.8, creatinine 0.72. All the above reviewed with her in detail. Her cardiomyopathy may be related to left bundle branch block, untreated sleep apnea. She is not feeling heart palpitations but will check Holter monitor to ensure no arrhythmias. Encouraged to use CPAP. Will increase Entresto dose. Repeat BMP in 1 week. Will check repeat limited echo after 3 months of Entresto use. Cardiology follow-up 3-4 months, sooner if needed. (2) Abnormal nuclear stress test: Code(s): R94.39 - Abnormal result of other cardiovascular function study Category: Medical Plan: Nuclear stress test on 11/13/2022 which showed possible anterior septal ischemia with apical nontransmural infarct. Cardiac catheterization was done 12/19/2022 showing LAD and RCA with only minimal luminal irregularities. Stress test false positive. (3) History of cardiac cath: Comment: 12/19/2022 showing left main normal, left circumflex normal, lad and RCA each with minimal luminal irregularities Code(s): Z98.890 - Other specified postprocedural states Category: Surgical Plan: As above (4) LBBB (left bundle branch block): Code(s): I44.7 - Left bundle-branch block, unspecified Category: Medical Plan: As above. -not new, noted on ECG in our system as far back as 2019 (5) Nonrheumatic aortic (valve) stenosis: Comment: 09/02/2023, echo shows mild . 11/17/2024 echo shows no . Code(s): I35.0 - Nonrheumatic aortic (valve) stenosis Category: Medical Plan: Echocardiogram 09/02/2023 shows EF 58%, mild aortic stenosis, mean gradient 12 mmHg, aortic valve area 1.6 centimeter sq, grade 1 diastolic dysfunction. Echocardiogram 11/17/2024 shows normal trileaflet aortic valve with no stenosis. (6) Sleep apnea: Code(s): G47.30 - Sleep apnea, unspecified Category: Medical Plan: Reported history of sleep apnea but not using her CPAP as it is uncomfortable for her to sleep with. With her cardiomyopathy she was encouraged to use CPAP as directed. If she continues to have issues with her mask she is instructed to discuss it with her stone grader. Plan I discussed with the patient the presence of a left bundle branch block and its impact on heart function. We reviewed the management plan, including medication adjustments and the potential need for a ICD/ pacemaker if ejection fraction continues to come down. The importance of treating sleep apnea was emphasized, and alternative options for CPAP were reviewed. Follow-up plans include a repeat echocardiogram, heart monitor to assess for arrythmia, increasing entresto dose and monitoring of kidney function and electrolytes. Orders: Orders ECG 3 day holter monitor Today I42.9 - Cardiomyopathy, unspecified, I44.7 - Left bundle-branch block, unspecified CA Echo Limited 3 Months I42.9 - Cardiomyopathy, unspecified Basic Metabolic Panel Today I42.9 - Cardiomyopathy, unspecified Medications: New sacubitril-valsartan 49-51 mg (Entresto) dose increased 1 tab PO BID 60 tabs 5RF 30 days Discontinued sacubitril-valsartan 24-26 mg (Entresto) Discontinued Reason: Doctor's Order 1 tab PO BID 60 tabs 5RF Patient Instructions: - Take Entresto as prescribed, increasing dose. - Monitor for symptoms of low blood pressure or lightheadedness. - If BP low with systolic < 100, reduce Furosemide by 1/2 - Retry CPAP for sleep apnea or consult with stone grader for alternatives. - Follow up with lab tests for kidney function and electrolytes next week. - Schedule a follow-up echocardiogram in three months. Patient was informed and verbally consented to the use of an ambient scribe for clinic note documentation during this visit. Visit time spent on chart review, interview, assessment, orders, documentation. Coding Level of Care Code Est Pt Level 4 (37666) Complex EM visit Add On G2211 Diagnoses Cardiomyopathy I42.9 Abnormal nuclear stress test R94.39 History of cardiac cath Z98.890 LBBB (left bundle branch block) I44.7 Nonrheumatic aortic (valve) stenosis I35.0 Sleep apnea G47.30 Time Spent (min) 32
[2025-07-08 10:11] VITALS: BP 130/72; PULSE 68; BMI 41.8
--- OUTSIDE RECORDS SUMMARY | 2025-07-08 10:36 | XMS_ITS | Clinical Summary ---
Author Organization [facility] Address [address] [address] Phone Care Team Providers Care Accountant Certified Public Name Role Phone Adrianna Sharp MD Primary Care Provider [phone] Allergies Active Allergy Reactions Criticality Noted Date [...] Visit [facility] [address] [facility] [address] [place] [address] Dayanara Marcus ARNP [address] [id number] Health Maintenance Due Date Last Done Comments [...] topic Insurance MCR ([id number]) ([id number]) Care Teams Accountant Certified Public Relationship Specialty Start Date End Date Adrianna Sharp MD [address] [place] [address] [address] [facility] [place] P[facility] - General Internal Medicine 06/25/23
== END 2025-07-08 10:34 | disposition home or self-care (01) ==
LOC: HO.HCS 10:01
PROVIDERS: PCP Internal Medicine; Visit Provider Nurse Practitioner Family
DX: I42.9 Cardiomyopathy, unspecified (principal); R94.39 Abnormal result of other cardiovascular function study; Z98.890 Other specified postprocedural states; I44.7 Left bundle-branch block, unspecified; I35.0 Nonrheumatic aortic (valve) stenosis; G47.30 Sleep apnea, unspecified
CPT/HCPCS: 99214; G2211

== ENCOUNTER → 2025-07-08 10:01 | Outpatient (BNVA) | payer OTHER, SELFPAY | PROVIDERS: PCP Internal Medicine; Visit Provider Nurse Practitioner Family | DX: I35.0 Nonrheumatic aortic (valve) stenosis (principal); I42.9 Cardiomyopathy, unspecified; R94.39 Abnormal result of other cardiovascular function study; I44.7 Left bundle-branch block, unspecified; G47.30 Sleep apnea, unspecified | CPT/HCPCS: 99212 ==

== ENCOUNTER 2025-07-26 11:34 | Outpatient (AMB) | payer OTHER, SELFPAY ==
--- NOTE | 2025-07-26 11:50 | MHC.OFFVIS ---
Intake Visit Reasons: OV-RT Shld 02/25/25 -2 month follow up Intake Note: Marita is a 69 year old female who presents with complaints of mild intermittent discomfort along the lateral aspect of her right shoulder after undergoing right shoulder arthroscopic surgery on 02/25/2025. She has completed formal physical therapy. She denies any fevers or chills. She continues with her home stretching program. Allergies latex (LATEX) Allergy (Intermediate, Verified 07/26/25 11:51) RASH oxycodone Adverse Reaction (Severe, Verified 07/26/25 11:51) Itching Medication List - Last Reconciled 07/26/25 by Maciej Tran MD Advair HFA 230-21 mcg/actuation (fluticasone propion-salmeterol) 2 puffs inhalation Q12H NS albuterol sulfate 90 mcg/actuation (Proair Digihaler) 2 inhalations inhalation Q4H PRN albuterol sulfate 2.5 mg (3 mL) inhalation Q6H PRN 30 days albuterol sulfate 90 mcg/actuation (Ventolin HFA) 2 puffs inhalation QID amoxicillin 2,000 mg (4 x 500 mg) PO ONCE atorvastatin 20 mg PO DAILY 90 days buspirone 10 mg PO TID 30 days cholecalciferol (vitamin D3) 50 mcg PO DAILY 90 days commode As directed CPAP (CPAP Machine/Device) autoPAP 6-16 cmH2O cyanocobalamin (vitamin B-12) (Vitamin B-12) 1,000 mcg PO DAILY escitalopram oxalate 20 mg PO BEDTIME 90 days furosemide 40 mg PO QAM 90 days levothyroxine 50 mcg PO DAILY 90 days lorazepam 0.5 mg PO DAILY PRN 1 day metoprolol succinate ER 25 mg PO DAILY 90 days Loaded Pocketcellaneous medical supply GRAB BAR 18 Loaded [employer] medical supply toilet safety frame morphine 15 mg PO Q8H PRN 15 days nebulizers (AeroEclipse II Nebulizer) As directed nystatin 1 appl topical BID PRN 2 weeks ondansetron 8 mg PO Q8H PRN 7 days sacubitril-valsartan 49-51 mg (Entresto) 1 tab PO BID 30 days [showerhead As directed] walker (Ultra-Light Rollator mis) As directed zinc acetate (Galzin) 50 mg PO DAILY PFSH Medical History Right shoulder pain Influenza A Bacterial pneumonia Vitamin D deficiency Zinc deficiency Family history of lupus anticoagulant disorder Severe major 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 psychotic features DORA on CPAP Acute hypoxemic respiratory failure Right lower lobe pneumonia CKD (chronic kidney disease) stage 3, GFR 30-59 ml/min Acute pancreatitis Anemia Morbid obesity Elevated TSH Murmur Moderate persistent asthma B12 deficiency Hair loss Dyslipidemia Lumbar degenerative disc disease History of vitamin D deficiency Arthritis History of left bundle branch block (LBBB) Breast cancer Mild aortic stenosis Tinnitus Chronic pain HTN (hypertension) Surgical History Hx of hand surgery History of cholecystectomy History of cardiac cath Hx of bilateral cataract extraction History of total right knee replacement (TKR) History of total left knee replacement (TKR) History of dilation and curettage Hx of colonoscopy Hx of esophagogastroduodenoscopy History of lymph node dissection of left axilla S/P lumpectomy, left breast Family History Father Prostate cancer Hypertension Mother Skin cancer Dementia Diabetes Daughter Lupus Maternal Grandmother Diabetes Hypertension Maternal Grandfather No problems noted. Paternal Grandmother No problems noted. Paternal Grandfather Cancer Brother Prostate cancer Social History Household Members: Spouse and Family Household Members Other:: Graddaughter Housing: House Do you presently have visiting nurse or other home services: Yes Alcohol intake: never Patient Tobacco Use Status: Never used Tobacco e-Cigarette/Vaping Use: Never Used Second Hand Smoke Exposure: No Substance Use Type: Marijuana Advance Directives Date on File: 08/05/22 service: No Current occupational status: disabled Cognitive needs: Yes (Cane) Hearing needs: No Vision needs: Yes (Glasses) Physical Exam Const Other: Well-nourished well-developed very friendly female awake alert and oriented x3 in no acute distress Extrem Other: Right shoulder examination shows that the surgical incisions are well healed, no erythema, slightly decreased range of motion when compared to her left shoulder, 5/5 strength with supraspinatus testing, mild discomfort with range of motion, no instability Assessment & Plan Assessment & Plan (1) Right shoulder pain: Code(s): M25.511 - Pain in right shoulder Category: Medical Plan Ms. Murray continues to do well after undergoing right shoulder arthroscopic surgery on 02/25/2025. She will continue with her home stretching program. The do's and don'ts of lifting were discussed at length with the patient. She will follow up with me on an as-needed basis should her symptoms worsen in any way. Feel free to call me at any time should questions regarding her orthopedic management arise. I spent 20 minutes in reviewing the patient's records and imaging studies, seeing the patient and documenting in the medical record. Coding Level of Care Code Est Pt Level 3 (05680) Complex EM visit Add On G2211 Diagnoses Right shoulder pain M25.511
--- OUTSIDE RECORDS SUMMARY | 2025-07-26 14:40 | XMS_ITS | Clinical Summary ---
Author Organization [facility] Address [address] [place] [address] Care Team Providers Care Road Grader Operator Name Role Phone Adrianna Sharp MD Primary Care Provider [phone] Allergies Active Allergy Reactions Criticality Noted Date [...] place to sleep or slept in a fdc (including now)? No 05/25/2023 Comments No Sex [...] es 65 and older) 2018 Influenza Vaccine 05/20/2025 COVID-19 Vaccine ( - 2023-2 5 season) 2025 Hepatitis B Vaccines Aged Out No long er eligible based on patient's age to complete this topic Medical Devices Explanted Type Area Sales Promoter Device Identifier Shelf Expiration Date Model / Serial / Lot [id number] Stent Pancreatic 5fr 5cm Pigtail Curve Radopq Push Cath - [id number] Implanted:Qty: 1 on 04/29/2023 by Bryan Chester MD at [facility] Explanted:Qty: 1 on 05/06/2023 by Kristyn Paez MD at [facility] Stent N/A: Bile Duct [employer] [id number] 12/30/2025 [id number] / / [id number] Insurance [employer] [facility] Advance Directives * Full Code (Latest Code Status on File) Date Activated Date Inactivated Comments 05/24/2023 3:08 PM Question Answer Comments Decision Thoroughly Discussed with: Patient * Full Code Date Activated Date Inactivated Comments 04/28/2023 9:15 PM 05/24/2023 2:[address] Grader Operator Relationship Specialty Start Date End Date Adrianna Sharp MD [address] [place] [address] PCP - General Family Medicine 04/29/23
--- OUTSIDE RECORDS SUMMARY | 2025-07-26 14:40 | XMS_ITS | Patient Health Record ---
Author Organization [facility] Address [address] [place] [address] Care Team Providers Care Head Correction Officer Name Role Phone Adrianna Sharp Primary Care Provider Bin Salinas Unavailable [phone] Reason For Referral No Information Problems Problem Type SNOMED Code ICD Code Onset Dates Problem Status W/U Status Risk Notes Problem Gallstones ([id number]) Gallstones (K80.20) Active confirmed Plan Of Treatment No Information Insurance Providers Payer Name Payer Address Payer Phone Subscriber Number Group Number Insured Name Patient Relationship to Insured Coverage Start Date Coverage End Date MEDICARE OF [facility] [address] [place] [address] [id number] ISMAEL JUÁREZ Self - patient is the insured MEDICAID OF [facility] [address] [place] [address] [id number] ISMAEL JUÁREZ Self - patient is the insured MEDICARE OF [place] [address] [place] [address] [id number] ISMAEL JUÁREZ Self - patient is the insured [facility] [address] [place] [phone] [id number] ISMAEL JUÁREZ Self - patient is the insured 3 Medical (General) History Medical History History ICD Code colon and egd 11-30-2009 history of anemia gastric polyp pernicious anemia
--- OUTSIDE RECORDS SUMMARY | 2025-07-26 14:40 | XMS_ITS | Encounter Summary ---
Author Organization [facility] Address [address] [place] [address] Care Team Providers Care Oracle Business Analyst Name Role Phone Pcp, No Primary Care Provider Unavailabl e Adrianna Sharp MD Primary Care Provider Encounter Details Date Type Department Care Team (Late st Contact Info) Description 04/28/2023 Scanned Document [facility] Emergency Department [address] [place] [address] Provider, Generic Social History Tobacco Use Types [...] [place] [facility] (including now)? No 04/29/2023 Comments Unknown Sex [...] * Question Answer Date of Assessment Author AUDIT-C Total Score - Female 0 04/28/2023 7:47 PM EDT Yuki Garcia RN Q1: How often do you have a [...] 7:47 PM EDT Yuki Garcia RN * Level of Risk per Screen Answer Date of Assessment Author Low Risk 04/28/2023 7:47 PM EDT Yuki Garcia RN [...] documented as of this encounter Care Teams Oracle Business Analyst Relationship Specialty Start Date End Date Pcp, No [address] [place] [address] PCP - General 04/28/23 04/28/23 Adrianna Sharp MD [address] [place] [address] PCP - General Family Medicine 04/29/23 documented as of this encounter
--- OUTSIDE RECORDS SUMMARY | 2025-07-26 14:40 | XMS_ITS | Clinical Summary ---
Author Organization [facility] Address [address] [address] Phone Care Team Providers Care Spectroscopist Name Role Phone Adrianna Sharp MD Primary Care Provider [phone] Allergies Active Allergy Reactions Criticality Noted Date [...] Care Team (Late st Contact Info) Description 08/20/2025 Orders Only [facility] [address] [address] Dayanara Marcus ARNP [address] [address] Chronic kidney disease, stage 2 (mild); Hypertension 09/28/2025 11:00 AM EST Office Visit [facility] [address] [address] Amrit DayanaraAG [address] [address] Health Maintenance Due Date Last Done Comments Breast Cancer Screening 1955 Pneumococcal Vaccine: 50+ Ye ars (1 of 2 - PCV) 1972 Colorectal Cancer Screening: Annual FOBT 2002 Colorectal Cancer Screening: Colonoscopy 2002 Colorectal Cancer Screening: Sigmoidoscopy 2002 Influenza Vaccine (#1) 2025 Hepatitis B Vaccine Aged Out No longe r eligible based on patient's age to complete this topic Insurance [facility] ([id number]) REBEKAH KINSEY [id number] [facility] ([id number]) Care Teams Spectroscopist Relationship Specialty Start Date End Date Adrianna Sharp MD [address] [place], [place] PCP - General Internal Medicine 06/25/23
== END 2025-07-26 12:11 | disposition home or self-care (01) ==
LOC: HO.HOS 11:35
PROVIDERS: PCP Internal Medicine; Visit Provider Orthopaedic Surgery
DX: M25.511 Pain in right shoulder (principal)
CPT/HCPCS: 99213; G2211

== ENCOUNTER → 2025-07-26 11:34 | Outpatient (BNVA) | payer OTHER, SELFPAY | PROVIDERS: PCP Internal Medicine; Visit Provider Orthopaedic Surgery | DX: M25.511 Pain in right shoulder (principal); Z98.890 Other specified postprocedural states | CPT/HCPCS: 99212 ==

== ENCOUNTER 2025-09-30 14:57 | Outpatient (AMB) | payer MEDICARE, MEDICAID, SELFPAY ==
[2025-09-30 14:59] VITALS: BP 122/86; PULSE 67; O2SAT 96; BMI 40.8
--- NOTE | 2025-09-30 14:59 | MHC.OFFVIS ---
Vital Signs 09/30/25 14:59 Height 4 ft 11 in Weight 202 lb BMI 40.8 BP 122/86 Blood Pressure Location Rt brachial Position Sitting Pulse 67 Pulse Source Pulse Oximeter Pulse Oximetry (%) 96 Oxygen Delivery Method Room Air Intake Visit Reasons: COPD Allergies latex (LATEX) Allergy (Intermediate, Verified 09/30/25 15:04) RASH oxycodone Adverse Reaction (Severe, Verified 09/30/25 15:04) Itching HPI HPI COPD: Details: 69-year-old lady, nonsmoker of tobacco products, uses marijuana now followed for asthma, orthopnea, and DORA. She has been using Advair and albuterol MDI with reasonable control of her symptoms until called with the hit when she started having worsening symptom control. She also continues on furosemide 40 mg daily with reasonable control of her orthopnea and on CPAP with good control of her underlying sleep apnea symptoms. Patient did have follow-up 2D echocardiogram that shows somewhat reduced left ventricular ejection fraction of 48%. She does follow with [facility]. 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 psychotic features DORA on CPAP Acute hypoxemic respiratory failure Right lower lobe pneumonia CKD (chronic kidney disease) stage 3, GFR 30-59 ml/min Acute pancreatitis Anemia Morbid obesity Elevated TSH Murmur Moderate persistent asthma B12 deficiency Hair loss Dyslipidemia Lumbar degenerative disc disease History of vitamin D deficiency Arthritis History of left bundle branch block (LBBB) Breast cancer Mild aortic stenosis Tinnitus Chronic pain HTN (hypertension) Surgical History Hx of hand surgery History of cholecystectomy History of cardiac cath Hx of bilateral cataract extraction History of total right knee replacement (TKR) History of total left knee replacement (TKR) History of dilation and curettage Hx of colonoscopy Hx of esophagogastroduodenoscopy History of lymph node dissection of left axilla S/P lumpectomy, left breast Family History Father Prostate cancer Hypertension Mother Skin cancer Dementia Diabetes Daughter Lupus Maternal Grandmother Diabetes Hypertension Maternal Grandfather No problems noted. Paternal Grandmother No problems noted. Paternal Grandfather Cancer Brother Prostate cancer Social History Household Members: Spouse and Family Household Members Other:: Graddaughter Housing: House Do you presently have visiting nurse or other home services: Yes Alcohol intake: never Patient Tobacco Use Status: Never used Tobacco e-Cigarette/Vaping Use: Never Used Second Hand Smoke Exposure: No Substance Use Type: Marijuana Advance Directives Date on File: 08/05/22 service: No Current occupational status: disabled Cognitive needs: Yes (Cane) Hearing needs: No Vision needs: Yes (Glasses) Review of Systems Const Denies daytime sleepiness, Denies excessive sweating, Denies fatigue, Denies fever(s), Denies lethargy, Denies malaise, Denies night sweats, Denies snoring and Denies weight loss Eyes Denies blurry vision and Denies itchy eyes ENT Denies nasal congestion, Denies post nasal drip, Denies sinus pain, Denies sinus pressure and Denies other ( Thrush) Card Denies chest pain, Denies pedal edema, Denies dyspnea, Denies orthopnea and Denies paroxysmal nocturnal dyspnea Resp Denies cough, Denies hemoptysis, Denies excessive phlegm production, Denies dyspnea, Denies snoring and Denies wheezing GI Denies abdominal pain and Denies heartburn Musc Denies myalgias, Denies arthralgias and Denies joint swelling Skin/Breast Denies rash Neuro Denies memory loss and Denies seizure-like activity Psych Denies abnormal sleep pattern, Denies anxiety and Denies memory loss Endo Denies excessive sweating, Denies fatigue and Denies heat intolerance Natan/Lymph Denies easy bruising Aller/Immun Denies itchy eyes, Denies seasonal rhinorrhea and Denies wheezing Physical Exam Vital Signs: Last Vital Signs Pulse 67 09/30/25 14:59 BP 122/86 09/30/25 14:59 Pulse Ox 96 09/30/25 14:59 Oxygen Delivery Method Room Air 09/30/25 14:59 BMI result Body Mass Index 40.8 Const General: no acute distress and alert Nutritional Appearance: not obese Orientation/consciousness: Other orientation findings ( oriented) HEENT Head: Yes atraumatic Eyes General: appearance normal, both eyes and all related structures Sclerae: sclerae normal EOM: EOMs intact bilaterally Neck Neck: Yes supple Lymphatic: no lymphadenopathy noted Resp Effort & Inspection: normal respiratory effort and no use of accessory muscles Auscultation: clear to auscultation bilaterally Cardio Rate: regular rate Rhythm: regular rhythm Heart sounds: no gallops, no murmurs and no rubs Skin General skin exam: other ( warm) Extrem General: No clubbing, No cyanosis and No edema Assessment & Plan Assessment & Plan (1) Asthma: Code(s): J45.909 - Unspecified asthma, uncomplicated Category: Medical Qualifiers: Asthma severity: mild Asthma persistence: persistent Asthma complication type: uncomplicated Qualified Code(s): J45.30 - Mild persistent asthma, uncomplicated Plan: Worsening control during winter time despite using her Advair and albuterol MDI/nebs. Will add Incruse. (2) DORA on CPAP: Code(s): G47.33 - Obstructive sleep apnea (adult) (pediatric) Category: Medical Plan: Reasonable control on current CPAP therapy, however patient has been having difficulties using fullface mask. Under the nose sample mask provided. Medications: New umeclidinium 62.5 mcg/actuation (Incruse Ellipta) 1 inh inhalation DAILY 1 ea 6RF Coding Level of Care Code Est Pt Level 4 (29039) Diagnoses Mild persistent asthma without complication J45.30 Asthma severity: mild Asthma persistence: persistent Asthma complication type: uncomplicated DORA on CPAP G47.33
--- OUTSIDE RECORDS SUMMARY | 2025-09-30 20:03 | XMS_ITS | Data Portability ---
Author Organization [employer] [facility], [facility] Address [address] [place] [address] Care Team Providers Care Rn Residential Name Role Phone HIM CCA OTHER AMBROSE [...] to allow for adequate healing. Precautions reviewed. [email or web address] Not available 10/07/2024 21:49:22 01/08/2025 01/08/2025 Ms. [...] OTC medications advised and will continue to licensed mental health counselor on safe use for tylenol and/or [...] Assessment and Plan as documented by the E Learning Coordinator. We discussed the diagnostic uncertainty of home [...] would benefit from in person evaluation in [facility] ED for consideration of imaging including [...] Primary care, consider neck imaging Disposition: KATEY [email or web address] Not available 02/16/2025 12:28:51 02/26/2025 02/26/2025 Ms. [...] given the procedure done. Signed out to [place] [facility] at 11:25am. I provided real -time medical direction via phone for this encounter, and was available for additional phone based assistance as needed. I have reviewed and agree with the Assessment and Plan as documented by the E Learning Coordinator. We discussed the diagnostic uncertainty of home [...] Ag, QL IA, respiratory specimen [address], [phone] 14:26:53 rapid flu (A+B) [address], [address] 14:26:08 rapid strep group A, throat [address], [address] 14:28:05 rapid flu (A+B) 2024 025 [email or web address] i7 [facility], [address] [place] [address], [phone] 12:22:27 rapid SARS CoV 2 Ag, QL IA, respiratory specimen [address] - [facility], [address] [place] [address], [address] 5 12:22:26 rapid flu (A+B) 2024 025 [facility], [address] [place] [address], [address] 14:16:35 rapid SARS CoV 2 Ag, QL IA, respiratory specimen [address] [facility] [address] [place] [address], [address] [place] [address], [phone] 14:16:35 Referral None recorded. Procedures None recorded. Surgeries None recorded. Imaging None recorded. Medication Orders oseltamivir 75 mg capsule [address]/Pharmacy [facility][id number], [address] [place], [address], 12:22:25 Tamiflu 75 mg capsule [address]/Pharmacy [facility]0373, [address] [place], [address], 5 12:22:25 ipratropium 0.5 mg-albutero l 3 mg (2.5 mg base)/3 mL nebulizatio n soln 2024 025 ust1 [facility]/Pharmacy #0373, [address] [place], [address], 5 14:16:35 prednisone 10 mg tablet 2024 025 [facility]acy [id number], [address] [place], [address], 5 14:18:56 prednisone 20 mg tablet 2024 025 [facility], [address] [place], [address], 5 14:18:54 clotrimazol e 1 % topical cream 2023 024 [id number], [address] [place], [address], 20:06:27 Patient TargetsNo targets recorded. Patient InstructionsNo instructions recorded. Reason for Referral None Reported. Results Created Date Observation Date Name Description Value Unit Range Abnormal Flag Note LastModifiedBy Organization Detail LastModifiedTime 01/09/2001/08/2025 rapid SARS CoV 2 Ag, QL IA, respi rator y speci men rapid SARS CoV 2 Ag, QL IA, respiratory specimen negati ve Not Available [facility] ed [address] [place] [address], [address] 01/08/2025 11:33:21 01/09/2001/08/2025 rapid flu (A+B) Flu positi ve Not Available [facility] ed [address] [place] [address], [address] 01/08/2025 11:33:21 Result Notes None recorded. Medical Equipment None Reported. Allergies Allergen ID Allergen Name Allergen Category Reaction Reaction Severity Criticality Documentation Date Start Date Code Code System Note Provider Name and Address Organization Details Recorded Time 56857 oxycodone medicatio n Not available Not available Not available 10/07/2024 7804 RxNorm Not Available [facility] - production 4 16:21:18 90111 latex environme nt,medica tion Not available Not available Not available 10/07/2024 68631 91 RxNorm Not Available [facility] - production [...] rate Heart rate Body height Oxygen saturation Body temperature Systolic And Diastolic Provider Name and Address Organization Details Last Updated DateTime 5 38425.3 2 g 18 /min 68 /min 147.32 cm 96 % 98 [degF] 140/85 mm[Hg] Not Available [employer] 5 14:10:41 Date Recorded Oxygen saturation Respiratory rate Body temperature Body weight Body height Heart rate Systolic And Diastolic Provider Name and Address Organization Details Last Updated DateTime 5 90 % 20 /min 103.5 [degF] 28454.1 36 g 149.86 cm 100 /min 119/75 mm[Hg] Not Available [facility] 5 11:37:03 Date Recorded Body temperature Heart rate Oxygen saturation Body weight Body height Respiratory rate Systolic And Diastolic Provider Name and Address Organization Details Last Updated DateTime 5 98.8 [degF] 72 /min 95 % 29963.1 36 g 149.86 cm 18 /min 143/85 mm[Hg] Not Available [facility] 5 10:50:27 Date Recorded Heart rate Oxygen saturation Oxygen saturation Respiratory rate Respiratory rate Heart rate Body temperature Systolic And Diastolic Provider Name and Address Organization Details Last Updated DateTime 5 90 /min 96 % 91 % 24 /min 18 /min 110 /min 98.2 [degF] 132/86 mm[Hg] Not Available [employer] 5 10:47:10 Date Recorded Oxygen saturation Body temperature Heart rate Respiratory rate Systolic And Diastolic Provider Name and Address Organization Details Last Updated DateTime 4 97 % 98.1 [degF] 84 /min 18 /min 140/82 mm[Hg] Not Available [facility] [employer] 4 20:04:20 Social History None recorded. Functional Status None recorded. Mental Status None recorded. Family History Nothing Reported. Medical History No medical history recorded. Gynecological HistoryNo gynecological history recorded. Obstetrics History GPAL:G 0 P 0 0 0 0 Past Encounters Encounter ID Performer Location Encounter Start Date Encounter Closed Date Diagnosis/Indication Diagnosis SNOMED-CT Code Diagnosis ICD10 Code Diagnosis IMO Codes Diagnosis Note [id number] MAU FLYNN MD Main - [address] [address] 10/07/2024 20:04:14 10/07/2024 23:05:27 Tinea corporis 51817070 B35.4 [id number] Sanam Russell MD Main - [address] [address] 11/02/2024 14:06:32 11/02/2024 22:25:51 Upper respiratory infection 71694887 J06.9 Evaluation in the field was performed by my vat operator colleague, as noted above, I provided real-time direction and supervisio n for this visit. 68yo F PMHx asthma p/w 2 weeks URI symptoms including cough, rhinorrhea , and increased wheezing without fevers, chest pain. Improved with inhalers. Reports she usually receives antibiotic s every year for this. Denies hx tobacco use. On vat operator eval VS sat 96% RA normal [...] shortness of breath, cough, chest pain, fever. [id number] SANDY MCPHERSON MD Main - [address] [address] 01/08/2025 11:31:19 01/10/2025 13:55:12 Viral syndrome 831022000 B34.9 [id number] Elio Oconnell MD Main - [facility] [address] [place] [address] 02/16/2025 10:50:19 02/16/2025 13:17:44 Neck pain 08342743 M54.2 [id number] SANDY MCPHERSON MD Main - [address] [address] 02/26/2025 10:47:07 02/26/2025 16:09:40 Dyspnea 883079640 R06.02 44329 Hypoxia 757817365 R09.02 14578 Health Concerns Section Related Observation LastModified by Organization Detai ls LastModified Time None Recorded Concern Status LastModified by Organization Details LastModified Time None Recorded Advance Directives Directive None Recorded Payers Insurance Date Sequence Insurance Name Policy Number Policy Taylor Covered Member ID Taylor Member ID Guarantor Name 02/26/2025 1 [facility] - DOS ON OR AFTER 2023 - DUAL ELIGIBLE - PENITENTIARY OPTIONS AND ONE CARE (MEDICARE REPLACEMENT/ADV ANTAGE - HMO) Marita Murray [id number] Marita Murray Notes Date Note Type Note [...] .................... .................... .................... .................... .................... .................... . E Learning Coordinator Note From Zaki Vega: Dispatched to the [...] .................... .................... .................... .................... .................... .................... . [facility] Consulted: Mau Flynn .................... .................... .................... .................... .................... .................... .................... . Disposition: Fulfilled MAU FLYNN MD [address] [facility],[address], [place], [address], [employer] 10/07/2024 21:49:34 11/02/2024 text/html CRC Nurse Triage Notes (Erika Noel - LAURA): Reason For Request: Patient feels weak, and general illness cold like symptoms, congestion in chest, Coughing problems. Chief Complaints: Cough, Weakness PMH: Asthma, Arrhythmias (e.g., Atrial Fibrillation), Cancer, Sleep Apnea PMH Reviewed at 11/02/2024 Allergies Reviewed at 11/02/2024: Comments: Patient reports cold sx's x2 weeks [...] s/s and seek emergency treatment if needed. E Learning Coordinator Organization Information for Yamile Cary Business Legal Name: [employer]. Address: [address] [place] [address], Knife Grinder: Constantin Machado MD [place] No.: [id number] E Learning Coordinator POC Test Results from Yamile Cary Rapid influenza antigen (14:11:38) Flu: - Rapid COVID antigen (14:11:39) COVID: - .................... .................... .................... .................... .................... .................... .................... . E Learning Coordinator Note From Yamile Cary: Sent to a [...] Duo neb administered; Lung sounds: clear bialterally; [facility] consulted and orders Prednisone 40mg PO. [facility] sends script to pt's pharmacy. Prednisone 40mg PO administered. Pt advised to use symptomatic treatment as outlined. Red flags discussed. Pt has no further questions. .................... .................... .................... .................... .................... .................... .................... . [facility] Consulted: Sanam Russell .................... .................... .................... .................... .................... .................... .................... . Disposition: Fulfilled Sanam Russell MD [address] [place] [address],[address], [place], [address], [employer] 11/02/2024 16:46:28 01/08/2025 text/html ROS as noted in the HPI CRC Nurse Triage Notes (Eugenia Fernandez): Reason [...] emergency treatment if needed. Ronan Fernandez RN E Learning Coordinator Organization Information for Pancho Mendez Business Legal Name: [employer]. Address: [address] [place] [address], Knife Grinder: Constantin Machado MD CLIA No.: [id number] E Learning Coordinator POC Test Results from Pancho Mendez Rapid [...] Hb: 12.9 g/dL A mmol/L Cartridge Number: [id number] Attachments uploaded as part of this test result can be found under Documents section. .................... .................... .................... .................... .................... .................... .................... . 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 [facility] obtains vital signs and pt is swabbed for COVID/flu and physically assessed. Lung sounds are rhonchi in the larger airways, but good air movement in the bases. Pt's skin is warm to touch and dry, and she is found to be febrile w/ low SpO2 at 90% RA. SpO2 improves to 93% when she sits up. Pt tests positive for Flu A. [facility] contacts [facility] and discusses the above. [facility] requests bmp for tamiflu dosing. IV access [...] and results are uploaded to the platform. [facility] recontacts [facility] and [facility] orders 75mg Tamiflu PO. [facility] administers one 75mg capsule Tamiflu to pt and instructs her to seek ED care if she cannot get her fever down and keep it down, she develops uncontrollable n/v/d, continues to feel sob w/ cp, or feels like she is going to or does pass out. [facility] also instructs pt to continue taking 1G Tylenol every 8 hours for fever and using her albuterol nebulizer every 4 hours as needed. Pt gives her verbal understanding. [facility] is clear. Report completed by ANTONIO Mendez [id number]. [facility] Lab Orders: rapid flu (A+B): Performed rapid SARS CoV 2 Ag, QL IA, respiratory specimen: Performed [facility] Medication Orders: oseltamivir 75 mg capsule: Administered .................... .................... .................... .................... .................... .................... .................... . [facility] Consulted: Sandy Mcpherson .................... .................... .................... .................... .................... .................... .................... . Disposition: Fulfilled SANDY MCPHERSON MD [address] [place] [address],[address], [place], [phone] [employer] 01/08/2025 14:28:06 02/16/2025 text/html ROS as noted in the [facility] CRC Nurse Triage Notes (Haydee Moran): Reason [...] is not on a blood thinner / [facility] breast cancer in remission I provided information on the mobile health provider response time and advised the patient and/or caregiver to monitor reported signs and symptoms. I discussed the warning signs of when to seek emergency care. E Learning Coordinator Organization Information for Yamile Cary Business Legal Name: [employer]. Address: [address] [place] [address], Knife Grinder: Constantin Machado MD [facility] No.: [id number] E Learning Coordinator POC Test Results from Cary Yamile Kong CHEW Rapid COVID antigen (10:48:16) COVID: - Rapid influenza antigen (10:48:17) Flu: - Rapid strep test (10:48:18) Strep: - .................... .................... .................... .................... .................... .................... .................... . E Learning Coordinator Note From Cary Yamile: Sent to a call for a pt [...] covid/flu test: neg; Rapid strep test: neg; [facility] consulted and pt is advised she should [...] .................... .................... .................... .................... .................... .................... . [facility] Consulted: Elio Oconnell .................... .................... .................... .................... .................... .................... .................... . Disposition: Fulfilled Elio Oconnell MD [address] [facility],[address], [place], [address], [employer] 02/16/2025 12:29:21 02/26/2025 text/html ROS as noted in the HPI CRC Nurse Triage Notes (Santosh Mcmanus): Reason [...] .................... .................... .................... .................... .................... .................... . E Learning Coordinator Note From Mino Hinojosa: Encountered patient seated [...] from 90 beats per minute to 110, [facility] notified of results. Patient reports she was [...] edema, peripheral pulses present in all extremities. [facility] contacted: [facility] states given patient s recent history of being both intubated and under anesthesia. The patient symptoms could signify a blood clot and recommends patient be transported to the emergency room for further evaluation. Patient verbalizes understanding of the plan and agrees with transport to the hospital. This technical publications writer arranged 911 on behalf of patient, care was relinquished to [place] crew [id number] with verbal report exchanged, transport to [place]. .................... .................... .................... .................... .................... .................... .................... . [facility] Consulted: Sandy Mcpherson .................... .................... .................... .................... .................... .................... .................... . Disposition: Fulfilled SANDY MCPHERSON MD [address] [facility],[address] [facility], [place], [address], ELENITA - BRITTANY PEREZ 02/26/2025 12:50:44 OBGyn Episode No OBEpisode recorded.
--- OUTSIDE RECORDS SUMMARY | 2025-09-30 20:03 | XMS_ITS | Patient Health Record ---
Author Organization [facility] Address [address] [place] [address] Care Team Providers Care Art Museum Docent Name Role Phone Adrianna Sharp Primary Care Provider Bin Salinas Unavailable [phone] Reason For Referral No Information Problems Problem Type SNOMED Code ICD Code Onset Dates Problem Status W/U Status Risk Notes Problem Gallstones ([id number]) Gallstones (K80.20) Active confirmed Plan Of Treatment No Information Insurance Providers Payer Name Payer Address Payer Phone Subscriber Number Group Number Insured Name Patient Relationship to Insured Coverage Start Date Coverage End Date MEDICARE OF [facility] [address] [place] [address] [id number] ISMAEL JUÁREZ Self - patient is the insured MEDICAID OF [facility] [address] [place] [address] [id number] ISMAEL JUÁREZ Self - patient is the insured MEDICARE OF [place] [address] [place] [address] [id number] ISMAEL JUÁREZ Self - patient is the insured [facility] [address] [place] [phone] [id number] ISMAEL JUÁREZ Self - patient is the insured 3 Medical (General) History Medical History History ICD Code colon and egd 11-30-2009 history of anemia gastric polyp pernicious anemia
--- OUTSIDE RECORDS SUMMARY | 2025-09-30 20:03 | XMS_ITS | Encounter Summary ---
Author Organization [facility] Address [address] [place] [address] Care Team Providers Care Matchbook Assembler Name Role Phone Pcp, No Primary Care Provider Unavailabl e Adrianna Sharp MD Primary Care Provider Encounter Details Date Type Department Care Team (Late st Contact Info) Description 04/28/[address] [facility] Emergency Department [address] [place] [address] Provider, Generic Social History Tobacco Use Types [...] as of this encounter Functional Status * AUDIT-C Score Answer Date of Assessment Author 0 [...] documented as of this encounter Care Teams Matchbook Assembler Relationship Specialty Start Date End Date Pcp, No [address] [place] [address] PCP - General 04/28/23 04/28/23 Adrianna Sharp MD [address] [place] [address] PCP - General Family Medicine 04/29/23 documented as of this encounter
--- OUTSIDE RECORDS SUMMARY | 2025-09-30 20:03 | XMS_ITS | Clinical Summary ---
Author Organization [facility] Address [address] [place] [address] Care Team Providers Care Teaching Dietitian Name Role Phone Adrianna Sharp MD Primary Care Provider [phone] Allergies Active Allergy Reactions Criticality Noted Date [...] in a long term (including now)? No 05/25/2023 Comments No Sex [...] 50+ (1 of 1 - PCV) 2003 RSV Vaccine 50 years and old er and Patients (1 - Risk 50-74 years 1-dose series) 2003 Zoster (Shingles) Vaccine (1 of 2) 2003 DXA Bone Density (Females,Ag es 65 and older) 2018 Influenza Vaccine 05/20/2025 COVID-19 Vaccine ( - 2024-2 6 season) 2025 Hepatitis B Vaccines Aged Out No long er eligible based on patient's age to complete this topic Medical Devices Explanted Type Area Promotions Director Device Identifier Shelf Expiration Date Model / Serial / Lot [id number] Stent Pancreatic 5fr 5cm Pigtail Curve Radopq Push Cath - [id number] Implanted:Qty: 1 on 04/29/2023 by Bryan Chester MD at [facility] Explanted:Qty: 1 on 05/06/2023 by Kristyn Paez MD at [facility] Stent N/A: Bile [employer] [id number] 12/30/2025 [id number] / / [id number] Insurance [employer] [facility] Advance Directives * Full Code (Latest Code Status on File) Date Activated Date Inactivated Comments 05/24/2023 3:08 PM Question Answer Comments Decision Thoroughly Discussed with: Patient * Full Code Date Activated Date Inactivated Comments 04/28/2023 9:15 PM 05/24/2023 2:10 PM Care Teams Teaching Dietitian Relationship Specialty Start Date End Date Adrianna Sharp MD [address] [place] [address] PCP - General Family Medicine 04/29/23
== END 2025-09-30 15:15 | disposition home or self-care (01) ==
LOC: HO.HPS 14:58
PROVIDERS: PCP Internal Medicine; Visit Provider Internal Medicine Pulmonary Disease
DX: J45.30 Mild persistent asthma, uncomplicated (principal); G47.33 Obstructive sleep apnea (adult) (pediatric)
CPT/HCPCS: 99214

== ENCOUNTER → 2025-09-30 14:57 | Outpatient (BNVA) | payer MEDICARE, MEDICAID, SELFPAY | PROVIDERS: PCP Internal Medicine; Visit Provider Internal Medicine Pulmonary Disease | DX: J45.30 Mild persistent asthma, uncomplicated (principal); G47.33 Obstructive sleep apnea (adult) (pediatric); Z99.89 Dependence on other enabling machines and devices | CPT/HCPCS: 99212 ==